=== PATIENT | male | born 1935 | race Caucasian/White ===

== ENCOUNTER 2016-10-23 16:11 | Emergency (ER) | payer OTHER, MEDICARE ==
[2016-10-23 16:28] VITALS: TEMP 98.4; O2SAT 93
[2016-10-23 17:45] LABS: INR 2.02 (0.83-1.16)
[2016-10-23 18:06] VITALS: BP 137/58; PULSE 69; RESP 14
--- NOTE | 2016-10-23 18:25 | EDPHY ---
H & P Time Seen by Provider: 10/23/16 16:44 HPI/ROS: CHIEF COMPLAINT: Fall 2 days ago HISTORY OF PRESENT ILLNESS: 81-year-old male presents to the emergency department after mechanical fall at home 2 days ago. Patient states that he was sitting at home and the chair that he was sitting in broke and he fell back hitting his head. He denies loss of consciousness. He complains of mild headache as well as some neck pain. He denies chest pain or difficulty breathing. Denies abdominal pain. Denies injury to upper lower extremities. The patient does report chest pain around 130 this afternoon which he believes was related to gas. The patient has a long history of gas. He did take Maalox at the onset of the chest pain which completely resolved the chest pain. He is no longer feeling chest pain now. He denies difficulty breathing. Patient also states that he fell sleep in the son 3 days ago and sustained a sunburn to his left lower leg. He states that he was resting out in the sun in hopes of treating his psoriasis. REVIEW OF SYSTEMS: Constitutional: No fever, no chills. Eyes: No double or blurry vision. ENT: No sore throat. Respiratory: No cough, no shortness of breath. Cardiac: No chest pain. Gastrointestinal: No abdominal pain, vomiting or diarrhea. Genitourinary: No dysuria. Musculoskeletal: Neck pain as above. No back pain Skin: No rashes. Neurological: headache. Past Medical/Surgical History: DVT, hypertension, [id number] diabetic, AAA Social History: and lives alone in [place] Smoking Status: Former smoker Physical Exam: General Appearance: Alert, no distress. Mentating normally and answering questions appropriately. No visible signs of trauma to his head. Eyes: Pupils equal and round. Extraocular motions are all intact. ENT: Mouth: Mucous membranes moist. Respiratory: No wheezing, rhonchi, or rales, lungs are clear to auscultation. Cardiovascular: Regular rate and rhythm. Gastrointestinal: Abdomen is soft and nontender, no masses, no rebound or guarding, bowel sounds normal. Neurological: Alert and oriented x 3, cranial nerves II through XII grossly intact Skin: Warm and dry, no rashes. Musculoskeletal: Nontender to palpate along the cervical, thoracic or lumbar spine. Neck is supple. Extremities: Full range of motion and no peripheral edema. Healing excoriated wound to the left anterior aspect of the lower leg. There is no redness or warmth or signs of cellulitis. He has no pain with palpation. No palpable bony tenderness with palpation to the lower extremities bilaterally. Psychiatric: Patient is oriented X 3, there is no agitation. Constitutional: Initial Vital Signs Temperature (C) 36.9 C 10/23/16 16:23 Heart Rate 79 10/23/16 16:23 Respiratory Rate 18 10/23/16 16:23 Blood Pressure 177/72 H 10/23/16 16:23 O2 Sat (%) 93 10/23/16 16:23 O2 Delivery Mode Room Air Allergies/Adverse Reactions: Tetracyclines Allergy (Intermediate, Verified 10/23/16 16:29) Vomiting nitrofurantoin [From Macrobid] Allergy (Unknown, Verified 10/23/16 16:29) nitrofurantoin macrocrystalline [From Macrobid] Allergy (Unknown, Verified 10/23 16:29) Penicillins Allergy (Unknown, Verified 10/23/16 16:29) Sulfa (Sulfonamide Antibiotics) Allergy (Unknown, Verified 10/23/16 16:29) Home Medications: Medication Instructions Recorded Lisinopril [Zestril 20 mg (*)] 20 mg PO DAILY@17 16 Acetaminophen [Tylenol 325mg (*)] 650 mg PO Q4HRS PRN #0 tab 08/04/16 Calcium Carbonate [Tums 500MG (*)] 500 mg PO TID PRN #0 tab.chew 08/04/16 Warfarin Sodium [Coumadin 5MG (*)] 10 mg PO DAILY@1700 #0 tab 08/04/16 amLODIPine BESYLATE [Norvasc 5 mg 5 mg PO DAILY #30 tab 08/04/16 (*)] traMADol [Ultram 50 mg (*)] 50 mg PO TID PRN #15 tab 10/23/16 Medical Decision Making - Diagnostics Imaging: CT imaging of the head and cervical spine reveal nothing acute. This is reported to me by the radiologist. ED Course/Re-evaluation: 81-year-old male presents after mechanical fall 2 days ago. The patient is on Coumadin for history of DVTs for [address] imaging of the head and cervical spine reveal nothing acute. Patient has evidence of sunburn to the left lower extremity. There is no signs of cellulitis. He has no pain with palpation. He has no history of neuropathy. I do not think x-rays are indicated. The patient is also having some mild pain to the right anterior knee. There is no effusion. Full range of motion of the right knee. Normal gait. I do not think x-rays are indicated. This was discussed with the patient he verbalized understanding and agreed. The patient describes pain in his chest that lasted a few minutes several hours ago. The patient states that is now completely resolved. He feels that this is related to previous history of GERD. He does not want further workup for this. He does not have any chest pain now. He is comfortable being discharged home. The case was discussed with Dr. Christiano Brannon, secondary supervising physician, who did not directly evaluate the patient but agrees with treatment and plan. Differential Diagnosis: Head injury including but not limited to concussion, skull fracture, intraparenchymal contusion, subarachnoid, subdural and epidural hematoma. - Data Points Laboratory Results: 10/23/16 17:23 PT 23.0 SEC H SEC (12.0-15.0) INR 2.02 H (0.83-1.16) Departure - Departure Disposition: Home, Routine, Self-Care Clinical Impression: sunburn left leg Head injury Qualifiers: Encounter type: initial encounter Qualified Code(s): S09.90XA - Unspecified injury of head, initial encounter Cervical strain Qualifiers: Encounter type: initial encounter Qualified Code(s): S16.1XXA - Strain of muscle, fascia and tendon at neck level, initial encounter Condition: Good Instructions: Cervical Strain (ED), Sunburn (ED), Head Injury (ED), Second Degree Burn (ED) Additional Instructions: Continue Coumadin as prescribed. Your INR today was 2.02. Return to the emergency department if you developed vomiting, worsening headache , altered mental status, or if you feel worse in any way. Tramadol as needed for pain. Referrals: Felipa Zamora PA [Primary Care Provider] - As per Instructions Prescriptions: traMADol [Ultram 50 mg (*)] 50 mg PO TID PRN #15 tab PRN Reason: Pain, Moderate
== END 2016-10-23 19:09 | disposition home or self-care (01) ==
DX: S09.90XA Unspecified injury of head, initial encounter (principal); S16.1XXA Strain of muscle, fascia and tendon at neck level, initial encounter; I10 Essential (primary) hypertension; E11.9 Type 2 diabetes mellitus without complications; L55.9 Sunburn, unspecified; Z87.891 Personal history of nicotine dependence; Z79.01 Long term (current) use of anticoagulants; W01.198A Fall on same level from slipping, tripping and stumbling with subsequent striking against other object, initial encounter

== ENCOUNTER 2016-10-28 19:16 | Emergency (ER) | payer OTHER, MEDICARE ==
[2016-10-28 19:25] VITALS: TEMP 97.5
[2016-10-28 21:38] LABS: % IMMATURE GRANULYOCYTES 0.1 % (0.0-1.1); ABSOLUTE IMMATURE GRANULOCYTES 0.01 10^3/uL (0.00-0.10); ADD DIFF? NO; ADD MORPH? NO; ADD SCAN? NO; ATYPICAL LYMPHOCYTE FLAG 10 (0-99); FRAGMENT RBC FLAG 0 (0-99); HEMATOCRIT 46.2 % (40.0-51.0); LEFT SHIFT FLG 0 (0-99); LIPEMIA HEMOLYSIS FLAG 80 (0-99); MEAN CELL HEMOGLOBIN 28.7 pg (27.9-34.1); MEAN CELL HEMOGLOBIN CONCENTR. 32.5 g/dL (32.4-36.7); MEAN CELL VOLUME 88.5 fL (81.5-99.8); MEAN PLATELET VOLUME 10.5 fL (8.7-11.7); PLATELET CLUMPS FLAG 0 (0-99); PLATELET COUNT 131 10^3/uL (150-400); RED BLOOD CELL COUNT 5.22 10^6/uL (4.40-6.38); RED CELL DISTRIBUTION WIDTH 16.3 % (11.5-15.2)
--- NOTE | 2016-10-28 21:44 | EDPHY ---
General - History Smoking Status: Former smoker Narrative: CHIEF COMPLAINT: Fall, head injury, headache HISTORY OF PRESENT ILLNESS: patient says that he fell out of a chair last night. He was trying to shift from 1 position to another when he slipped, falling backwards over the chair. He slipped on a hardwood floor and struck a door with his head. No LOC. Does have a headache but only area where he struck his head. He has had some difficulty with thought process today which concerned him. Nausea but no vomiting. No changes in vision. No neck pain that is midline, but does have some right-sided soft tissue pain. Symptoms are very mild concerning as he fell 2 days ago as well. He was seen here within normal CT scan discharge home. No chest or back injury. No injury to the arms or legs. No abdominal pain. No other associated complaints or modifying factors. REVIEW OF SYSTEMS: Ten systems reviewed and are negative unless otherwise noted in the HPI PERTINENT MEDICAL HISTORY: EXAMINATION General Appearance: Alert, no distress Head: normocephalic, atraumatic . No hematoma. No To sign. No raccoon eyes. No outward signs of trauma. Eyes: Pupils equal and round, no conjunctival pallor or injection ENT, Mouth: Mucous membranes moist . Uvula midline. No erythema or edema. Neck: Normal inspection, supple . No midline tenderness. No crepitus, step- off or deformity. There is mild right-sided trapezius tenderness. Range of motion is painless in all planes. Respiratory: Lungs are clear to auscultation . No wheezing, rhonchi or crackles. Cardiovascular: Regular rate and rhythm . No murmur. Pulses intact distally symmetrically Gastrointestinal: Abdomen is soft and nontender Back: non-tender, no bony abnormalities Neurological: A&O, nonfocal, normal gait. Strength is symmetric in all limbs. Normal mental status. No pronator drift. No dysmetria. Cranial nerves 2-12 grossly intact. Skin: Warm and dry, no rash . No lacerations, abrasions or contusions. Extremities: Nontender, no pedal edema Psychiatric: Mood and affect normal DIFFERENTIAL DIAGNOSES: Including but not limited to Closed head injury, intracranial hemorrhage, subdural hematoma, epidural hematoma, cranial fracture , right-sided cervical myofascial strain MDM: 8:45 p.m. mechanical fall last night it resulted in a closed head injury. The patient is on Coumadin and this is the 2nd fall in the last 2 days. I have ordered CT scan of the head due to anticoagulation with trauma and headache. He is nonfocal in no acute distress. Vital signs are stable. Also we will check his INR and hemoglobin. 10:15 p.m. notified by Radiology that the CT scan is unremarkable. No intracranial abnormality on CT scan. I have re-evaluated the patient. He is awake and alert. He is conversing appropriately. He is ambulating without any difficulty or assistance. He would like to be discharged home. I do feel he is able to do so as he is fully neuro intact. Contact primary care physician in the morning. Return to ER for any worsening symptoms, confusion, dizziness, vomiting. SUPERVISION: This patient was independently evaluated without the aide of supervising physician. (Andrew Thomas) Discussion: The patient wasevaluatedand managed by themidlevel provider. My co- signature indicates that Ihave reviewed this chart and I agree with the findings and plan of care asdocumented. I am the secondary supervising physician. (Zarina Diana) - Objective Vital Signs: Initial Vital Signs Temperature (C) 36.4 C 10/28/16 19:20 Heart Rate 75 10/28/16 19:20 Respiratory Rate 18 10/28/16 19:20 Blood Pressure 180/112 H 10/28/16 19:20 O2 Sat (%) 95 10/28/16 19:20 O2 Delivery Mode Room Air Allergies/Adverse Reactions: Tetracyclines Allergy (Intermediate, Verified 10/23/16 16:29) Vomiting nitrofurantoin [From Macrobid] Allergy (Unknown, Verified 10/23/16 16:29) nitrofurantoin macrocrystalline [From Macrobid] Allergy (Unknown, Verified 10/23 16:29) Penicillins Allergy (Unknown, Verified 10/23/16 16:29) Sulfa (Sulfonamide Antibiotics) Allergy (Unknown, Verified 10/23/16 16:29) Home Medications: Medication Instructions Recorded Lisinopril [Zestril 20 mg (*)] 20 mg PO DAILY@17 08/01/16 Acetaminophen [Tylenol 325mg (*)] 650 mg PO Q4HRS PRN #0 tab 16 Calcium Carbonate [Tums 500MG (*)] 500 mg PO TID PRN #0 tab.chew 08/04/16 Warfarin Sodium [Coumadin 5MG (*)] 10 mg PO DAILY@1700 #0 tab 08/04/16 amLODIPine BESYLATE [Norvasc 5 mg 5 mg PO DAILY #30 tab 08/04/16 (*)] traMADol [Ultram 50 mg (*)] 50 mg PO TID PRN #15 tab 10/23/16 Laboratory Results: Laboratory Results 10/28/16 21:30 Departure - Departure Disposition: Home, Routine, Self-Care Clinical Impression: Closed head injury, Warfarin-induced coagulopathy Condition: Good Instructions: Head Injury (ED) Additional Instructions: Contact your primary care physician in the morning. Return here for worsening headache, dizziness, syncope, or vomiting. Referrals: Felipa Zamora PA [Primary Care Provider] - As per Instructions
[2016-10-28 21:48] LABS: INR 1.73 (0.83-1.16); PROTIME(PATIENT) 20.3 SEC (12.0-15.0)
[2016-10-28 21:49] LABS: APTT 34.9 SEC (23.0-38.0)
[2016-10-28 22:40] VITALS: BP 172/104; PULSE 78; RESP 16; O2SAT 94
== END 2016-10-28 22:38 | disposition home or self-care (01) ==
DX: S09.90XA Unspecified injury of head, initial encounter (principal); D68.8 Other specified coagulation defects; T45.515A Adverse effect of anticoagulants, initial encounter; Z87.891 Personal history of nicotine dependence; Z79.01 Long term (current) use of anticoagulants; W01.198A Fall on same level from slipping, tripping and stumbling with subsequent striking against other object, initial encounter

== ENCOUNTER 2016-11-01 11:20 | Emergency (ER) | payer MEDICARE, OTHER ==
[2016-11-01 11:40] VITALS: TEMP 98.2
--- NOTE | 2016-11-01 11:45 | EDPHY ---
H & P Stated Complaint: DUZZUNESS RESOLVED Time Seen by Provider: 11/01/16 11:44 HPI/ROS: CHIEF COMPLAINT: Dizziness, Nausea HISTORY OF PRESENT ILLNESS: The patient is a 81 year old male, brought in by EMS , who presents to the emergency department with dizziness that he woke up with at 10:30 a.m.. The patient got up to use the bathroom and felt very unsteady and nauseated. He states he had a "a lack or coordination". The patient has had vertigo in the past and states his symptoms feel similar. His symptoms worsened when he lifted his head from the bed. He applied an oil to his inner ears to help improve his symptoms. The patient was able to walk to the ambulance without difficulty. The patient had 2 recent falls where he hit his head on the hardwoods. He was seen here 10/23 and 10/28 and had normal head CTs both times. The patient is on Coumadin for DVTs. He denies numbness or weakness unilaterally. Patient is currently feeling nauseous, but dizziness has improved. No fever, chills, chest pain, shortness of breath, palpitations, vomiting, diarrhea, or urinary complaints. REVIEW OF SYSTEMS: Aside from elements discussed in the HPI, a comprehensive 10-point review of systems was reviewed and is negative. PAST MEDICAL HISTORY: HTN, NIDDM, DVT, abdominal aortic aneurism, peripheral vascular disease, spinal stenosis. SOCIAL HISTORY: Lives [place]. VITAL SIGNS: Reviewed by me GENERAL: Well-developed, well-nourished, resting comfortably in no respiratory distress. HEENT: Head: Atraumatic. Eyes: No icterus, no injection. Ears: Oil droplets in inner ear. Mouth: moist mucous membranes. No erythema or lesions. Neck: supple with no adenopathy. Neck: Nontender to palpation, no trauma. LUNGS: Clear to auscultation bilaterally, no wheezes, rhonchi or rales. CARDIAC: Regular rate and rhythm, no rubs, murmurs or gallops. ABDOMEN: Soft, nontender, nondistended, bowel sounds normal. BACK: No CVA tenderness. EXTREMITIES: : No trauma noted, normal range of motion. PULSES: 2+ and equal throughout. NEURO: Alert and oriented, cranial nerves II through XII are intact. Motor strength 5 over 5 in all major muscle groups. Sensation intact to light touch. Normal finger to nose. SKIN: Warm and dry, no rash. PSYCHIATRIC: Normal mentation, no agitation. Portions of this note were transcribed by a biomedical technician. I personally performed a history, physical exam, medical decision making, and confirmed accuracy of information the transcribed note. - Personal History Current Tetanus/Diphtheria Vaccine: Yes Tetanus Vaccine Date: last 10 years - Medical/Surgical History Hx Asthma: No Hx Chronic Respiratory Disease: No Hx Diabetes: Yes Hx Cardiac Disease: Yes Hx Renal Disease: No Hx Cirrhosis: No Hx Alcoholism: No Hx HIV/AIDS: No Hx Splenectomy or Spleen Trauma: No Other PMH: HTN, NIDDM, DVT, abdominal aortic anersym-no surg, peripheral vascular disease, spinal stenosis. foot drop. - Social History Smoking Status: Former smoker Constitutional: Initial Vital Signs Temperature (C) 36.8 C 11/01/16 11:22 Heart Rate 74 11/01/16 11:22 Respiratory Rate 18 11/01/16 11:22 Blood Pressure 192/83 H 11/01/16 11:22 O2 Sat (%) 92 11/01/16 11:22 O2 Delivery Mode Room Air Allergies/Adverse Reactions: Tetracyclines Allergy (Intermediate, Verified 10/23/16 16:29) Vomiting nitrofurantoin [From Macrobid] Allergy (Unknown, Verified 10/23/16 16:29) nitrofurantoin macrocrystalline [From Macrobid] Allergy (Unknown, Verified 10/23 16:29) Penicillins Allergy (Unknown, Verified 10/23/16 16:29) Sulfa (Sulfonamide Antibiotics) Allergy (Unknown, Verified 10/23/16 16:29) Home Medications: Medication Instructions Recorded Lisinopril [Zestril 20 mg (*)] 20 mg PO DAILY@17 16 Acetaminophen [Tylenol 325mg (*)] 650 mg PO Q4HRS PRN #0 tab 08/04/16 Calcium Carbonate [Tums 500MG (*)] 500 mg PO TID PRN #0 tab.chew 08/04/16 Warfarin Sodium [Coumadin 5MG (*)] 10 mg PO DAILY@1700 #0 tab 08/04/16 amLODIPine BESYLATE [Norvasc 5 mg 5 mg PO DAILY #30 tab 08/04/16 (*)] traMADol [Ultram 50 mg (*)] 50 mg PO TID PRN #15 tab 10/23/16 Medical Decision Making - Diagnostics EKG Interpretation: The 12 lead EKG was interpreted by myself. See hard copy and/or "tracemaster" electronic copy for interpretation: Sinus rhythm. Imaging: Results: CT scan of the head was obtained. I viewed the images independently on the PACS system. I discussed the results of the study with the radiologist. Impression: No hemorrhage. Please see the full radiology report. Results: CT angiogram of the head and neck was obtained. I viewed the images independently on the PACS system. I discussed the results of the study with the radiologist. Impression: Normal. Please see the full radiology report. X-ray: Chest was obtained. I viewed the images myself on the PACS system. The radiologist interpretation is: minimal cardiomegaly and left basilar scarring versus atelectasis are unchanged. I discussed the x-ray findings with the patient. ED Course/Re-evaluation: 81-year-old male presenting with reports of "vertigo" which started this morning. Patient was seen in the emergency department 4 days ago following a relatively minor head trauma. He is on Coumadin however. Patient will undergo repeat CT scan of his head. CT scans demonstrate no acute findings. No hemorrhage. No dissection. Patient received meclizine 25 mg. Labs including a troponin are likewise reassuring. Patient was ambulated in the emergency department at 230. He did well. He will be discharged home. 2:40 p.m.: I discussed findings with the patient. I will have case management see the patient to arrange followup appointments. Differential Diagnosis: Differential diagnosis of the patient's dizziness was considered including but not limited to peripheral and central causes of vertigo, cardiac arrhythmias, cardiac ischemia, electrolyte disturbances, neurologic causes, orthostatic causes including dehydration, and blood loss. - Data Points Laboratory Results: Laboratory Results 11/01/16 12:45 11/01/16 12:45 11/01/16 11/01/16 11/01/16 12:45 12:45 11:59 WBC 6.31 10^3/uL 10^3/uL (3.80-9.50) RBC 5.37 10^6/uL 10^6/uL (4.40-6.38) Hgb 15.1 g/dL g/dL (13.7-17.5) Hct 48.3 % % (40.0-51.0) MCV 89.9 fL fL (81.5-99.8) MCH 28.1 pg pg (27.9-34.1) MCHC 31.3 g/dL L g/dL (32.4-36.7) RDW 16.1 % H % (11.5-15.2) Plt Count 127 10^3/uL L 10^3/uL (150-400) MPV 10.8 fL fL (8.7-11.7) Neut % (Auto) 77.8 % H % (39.3-74.2) Lymph % (Auto) 13.0 % L % (15.0-45.0) [place] % (Auto) 7.1 % % (4.5-13.0) Eos % (Auto) 1.3 % % (0.6-7.6) Baso % (Auto) 0.5 % % (0.3-1.7) Nucleat RBC Rel Count 0.0 % % (0.0-0.2) Absolute Neuts (auto) 4.91 10^3/uL 10^3/uL (1.70-6.50) Absolute Lymphs (auto) 0.82 10^3/uL L 10^3/uL (1.00-3.00) Absolute Monos (auto) 0.45 10^3/uL 10^3/uL (0.30-0.80) Absolute Eos (auto) 0.08 10^3/uL 10^3/uL (0.03-0.40) Absolute Basos (auto) 0.03 10^3/uL 10^3/uL (0.02-0.10) Absolute Nucleated RBC 0.00 10^3/uL 10^3/uL (0-0.01) Immature Gran % 0.3 % % (0.0-1.1) Immature Gran # 0.02 10^3/uL 10^3/uL (0.00-0.10) PT 21.3 SEC H SEC (12.0-15.0) INR 1.84 H (0.83-1.16) APTT 35.9 SEC SEC (23.0-38.0) Sodium 141 mEq/L mEq/L (134-144) Potassium 5.0 mEq/L mEq/L (3.5-5.2) Chloride 104 mEq/L mEq/L (97-110) Carbon Dioxide 25 mEq/l mEq/l (22-31) Anion Gap 12 mEq/L mEq/L (8-16) BUN 29 mg/dL H mg/dL (7-23) Creatinine 1.2 mg/dL mg/dL (0.7-1.3) Estimated GFR 58 Glucose 100 mg/dL mg/dL (70-100) Calcium 9.3 mg/dL mg/dL (8.5-10.4) Troponin I < 0.012 ng/mL ng/mL (0-0.034) Medications Given: Discontinued Medications Meclizine HCl (Meclizine Hcl) 25 mg PO EDNOW ONE Stop: 11/01/16 13:50 Last Admin: 11/01/16 13:59 Dose: 25 mg Departure - Departure Disposition: Home, Routine, Self-Care Clinical Impression: Vertigo, Dizziness Condition: Good Instructions: Vertigo (ED), Dizziness (ED) Additional Instructions: #1. Take Meclizine as directed if nausea and dizziness reoccur. Meclizine 12.5-25mg by mouth 2-3 times a day as needed. #2. Followup with your primary care physician next week. 3. Please follow up with Neurosurgery to obtain a brace for your foot. Referrals: Felipa Zamora PA [Physician Relay Tester Helper] - As per Instructions Report Scribed for: Zarina Diana Report Scribed by: Izabel Harper Date of Report: 11/01/16 Time of Report: 12:08
--- NOTE | 2016-11-01 12:15 | CPEKG ---
Heart Rate: 64 RR Interval: 938 P-R Interval: 156 QRSD Interval: 102 QT Interval: 428 QTC Interval: 442 P [place]: 91 QRS [place]: 32 T Wave [place]: 14 EKG Severity - NORMAL ECG - EKG Impression: SINUS RHYTHM Electronically Signed By: Mariana Sosa 01-Nov-2016 15:34:55
[2016-11-01 12:53] LABS: % IMMATURE GRANULYOCYTES 0.3 % (0.0-1.1); ABSOLUTE IMMATURE GRANULOCYTES 0.02 10^3/uL (0.00-0.10); ADD DIFF? NO; ADD MORPH? NO; ADD SCAN? NO; ATYPICAL LYMPHOCYTE FLAG 0 (0-99); FRAGMENT RBC FLAG 0 (0-99); HEMATOCRIT 48.3 % (40.0-51.0); HEMOGLOBIN 15.1 g/dL (13.7-17.5); LEFT SHIFT FLG 0 (0-99); LIPEMIA HEMOLYSIS FLAG 80 (0-99); MEAN CELL HEMOGLOBIN 28.1 pg (27.9-34.1); MEAN CELL HEMOGLOBIN CONCENTR. 31.3 g/dL (32.4-36.7); MEAN CELL VOLUME 89.9 fL (81.5-99.8); MEAN PLATELET VOLUME 10.8 fL (8.7-11.7); PLATELET CLUMPS FLAG 0 (0-99); PLATELET COUNT 127 10^3/uL (150-400); RED BLOOD CELL COUNT 5.37 10^6/uL (4.40-6.38); RED CELL DISTRIBUTION WIDTH 16.1 % (11.5-15.2)
[2016-11-01 13:00] LABS: ANION GAP 12 mEq/L (8-16); CALCIUM 9.3 mg/dL (8.5-10.4); CARBON DIOXIDE 25 mEq/l (22-31); CHLORIDE 104 mEq/L (97-110); CREATININE 1.2 mg/dL (0.7-1.3); GLOMERULAR FILTRATION RATE 58; GLUCOSE 100 mg/dL (70-100); SODIUM 141 mEq/L (134-144)
[2016-11-01 13:06] LABS: INR 1.84 (0.83-1.16); PROTIME(PATIENT) 21.3 SEC (12.0-15.0)
[2016-11-01 13:07] LABS: APTT 35.9 SEC (23.0-38.0)
[2016-11-01] MEDS ORDERED: IOPAMIDOL (ISOVUE 370) 100 ML BTL IV ONE (13:07)
[2016-11-01 13:13] LABS: TROPONIN I < 0.012 ng/mL (0-0.034)
[2016-11-01 13:40] VITALS: BP 150/84; PULSE 68; RESP 16; O2SAT 98
[2016-11-01] MEDS ORDERED: MECLIZINE HCL 25 MG TAB PO ONE (13:49)
[2016-11-01] MEDS ORDERED: MECLIZINE HCL 25 MG TAB ONE (13:56)
== END 2016-11-01 15:15 | disposition home or self-care (01) ==
LOC: EDUNIT#
DX: R42 Dizziness and giddiness (principal); I10 Essential (primary) hypertension; E11.9 Type 2 diabetes mellitus without complications; Z87.891 Personal history of nicotine dependence; Z79.01 Long term (current) use of anticoagulants
CPT/HCPCS: 70450; 70496; 70498; 71020; 93005; 99285; Q9967

== ENCOUNTER 2016-12-12 18:35 | Inpatient (IN) | payer OTHER ==
--- NOTE | 2016-12-12 18:51 | EDPHY ---
H & P Time Seen by Provider: 12/12/16 18:48 HPI/ROS: Chief complaint. Altered mental status HPI. 81-year-old male found this afternoon lying on the floor confused in his apartment. Patient's neighbor was delivering groceries and she knocked and did not hear him answer though thought that the patient was at home. She had achy and opened the apartment door and found the patient on the floor. She noted as face was quite red. He was speaking in confused speech. The patient now is speaking though still has poor memory. He complains of chest discomfort but no trouble breathing. No abdominal pain no headache. He is on blood thinners but does not think he has recently his head. Does not think he has had recent fever or upper respiratory symptoms. No urinary symptoms. ROS Constitutional. Generalized weakness Eyes. no problems with vision ENT. no sore throat, no nasal drainage Cardiovascular. Chest pain Respiratory. no shortness of breath, no cough Abdominal. no abdominal pain, no nausea/vomiting, no diarrhea . no problems urinating MS. no calf pain/swelling, no neck/back pain, no joint pain Skin. no rash Lymph. no swollen glands Neuro. Confused Past Medical/Surgical History: Hypertension, non insulin-dependent diabetes, DVT, abdominal aortic aneurysm without surgery, peripheral vascular disease, spinal stenosis with foot drop Social History: Lives by self, nonsmoker, no alcohol Smoking Status: Former smoker Physical Exam: General Appearance: Alert well-developed male mild distress vital signs significant for temp 37.4degrees and O2 saturation 91% on room air Eyes: Pupils equal and round no pallor or injection. ENT, Mouth: Mucous membranes are moist. Respiratory: There are no retractions, lungs are clear to auscultation. Cardiovascular: Regular rate and rhythm. Gastrointestinal: Abdomen is soft and nontender, no masses, bowel sounds normal. Neurological: Awake and alert, sensory and motor exams grossly normal. Speech is confused. Cranial nerves appear intact. Patient moves all 4 extremities. Skin: Warm and dry, no rashes. Musculoskeletal: Neck is supple nontender. Extremities symmetrical, full range of motion. Psychiatric: Patient is oriented X 2, there is no agitation. He does not know day of the week month, or year Constitutional: Initial Vital Signs Temperature (C) 37.4 C 12/12/16 18:40 Heart Rate 81 12/12/16 18:40 Respiratory Rate 18 04/27/17 18:40 Blood Pressure 123/55 H 12/12/16 18:40 O2 Sat (%) 91 L 12/12/16 18:40 O2 Delivery Mode Nasal Cannula O2 (L/minute) 2 Allergies/Adverse Reactions: Tetracyclines Allergy (Intermediate, Verified 10/23/16 16:29) Vomiting nitrofurantoin [From Macrobid] Allergy (Unknown, Verified 10/23/16 16:29) nitrofurantoin macrocrystalline [From Macrobid] Allergy (Unknown, Verified 10/23 16:29) Penicillins Allergy (Unknown, Verified 10/23/16 16:29) Sulfa (Sulfonamide Antibiotics) Allergy (Unknown, Verified 10/23/16 16:29) Home Medications: Medication Instructions Recorded Lisinopril [Zestril 20 mg (*)] 20 mg PO DAILY 08/01/16 amLODIPine BESYLATE [Norvasc 5 mg 5 mg PO DAILY #30 tab 08/04/16 (*)] Warfarin Sodium [Coumadin 5MG (*)] 7.5 mg PO SUMOWEFRSA 12/12/16 Warfarin Sodium [Coumadin 5MG (*)] 10 mg PO TUTH 12/12/16 Medical Decision Making - Diagnostics EKG Interpretation: EKG was interpreted by me for full report please see the report trace master Imaging Results: Head CT reviewed by me and discussed with Dr. Calix shows no acute abnormality Chest x-ray shows no acute abnormality CT angiogram shows pulmonary embolus Procedures: IV normal saline, monitor. Septic workup ED Course/Re-evaluation: Re-evaluation 8:10 p.m.--patient is stable Lovenox subcutaneously Fluid bolus and IV Rocephin. Patient and I discussed imaging and lab results. We discussed treatment plan including criteria for return importance of follow-up further evaluation. They expressed understanding and agreement Patient also has and the elevated troponin Differential Diagnosis: I considered sepsis as an etiology including pneumonia and urinary tract infection. Patient has an elevated troponin. He has an elevated D-dimer. Findings on CT angiogram show pulmonary embolus. - Data Points Laboratory Results: Laboratory Results 12/12/16 18:30 12/12/16 18:30 Microbiology Results: MICROBIOLOGY 12/12/16 19:41 Blood Blood Culture - Preliminary Beta Hemoylytic Streptococcus 12/12/16 20:21 Blood Blood Culture - Preliminary Beta Hemoylytic Streptococcus 12/12/16 20:21 Blood Blood Panel (PCR) - Final Strep Agalactiae Group B Medications Given: Discontinued Medications Enoxaparin Sodium (Lovenox) 100 mg SC BID ERIK Stop: 06/10/17 22:29 Last Admin: 12/12/16 23:58 Dose: Not Given Sodium Chloride (Ns) 1,000 mls @ 0 mls/hr IV ONCE ONE PRN Reason: Wide Open Stop: 12/12/16 19:01 Last Admin: 12/12/16 19:24 Dose: 1,000 mls Ceftriaxone Sodium/Dextrose (Rocephin 1 Gm (Premix)) 50 mls @ 100 mls/hr IV DAILY ERIK PRN Reason: Protocol Stop: 01/11/17 23:44 Last Admin: 12/13/16 00:14 Dose: 50 mls Vancomycin/Sodium Chloride (Vancomycin 1 Gm (Premix)) 250 mls @ 250 mls/hr IV ONCE ONE PRN Reason: Protocol Stop: 12/13/16 00:47 Last Admin: 12/13/16 00:34 Dose: 250 mls Sodium Chloride (Ns) 1,000 mls @ 150 mls/hr IV CONT ERIK Stop: 12/13/16 06:24 Last Admin: 12/13/16 00:13 Dose: 1,000 mls Lisinopril (Zestril) 20 mg PO DAILY ERIK Stop: 06/11/17 08:59 Last Admin: 12/14/16 12:24 Dose: Not Given Lorazepam (Ativan Injection) 1 mg IVP ONCE ONE Stop: 12/13/16 12:50 Last Admin: 12/13/16 15:16 Dose: Not Given Lorazepam (Ativan Injection) 1 mg IVP ONCE ONE Stop: 12/13/16 15:31 Last Admin: 12/13/16 16:07 Dose: 1 mg Departure - Departure Disposition: [facility] Acute Clinical Impression: Elevated troponin Pulmonary embolus Qualifiers: Pulmonary embolism type: other Chronicity: acute Acute cor pulmonale presence: without acute cor pulmonale Qualified Code(s): I26.99 - Other pulmonary embolism without acute cor pulmonale Condition: Serious
[2016-12-12] MEDS ORDERED: NS 1,000 ML IV ONE (19:00)
[2016-12-12 19:10] LABS: % IMMATURE GRANULYOCYTES 0.9 % (0.0-1.1); ABSOLUTE IMMATURE GRANULOCYTES 0.12 10^3/uL (0.00-0.10); ADD DIFF? NO; ADD MORPH? NO; ADD SCAN? NO; ATYPICAL LYMPHOCYTE FLAG 0 (0-99); FRAGMENT RBC FLAG 0 (0-99); HEMATOCRIT 41.7 % (40.0-51.0); HEMOGLOBIN 13.5 g/dL (13.7-17.5); LEFT SHIFT FLG 30 (0-99); LIPEMIA HEMOLYSIS FLAG 80 (0-99); MEAN CELL HEMOGLOBIN 28.4 pg (27.9-34.1); MEAN CELL HEMOGLOBIN CONCENTR. 32.4 g/dL (32.4-36.7); MEAN CELL VOLUME 87.8 fL (81.5-99.8); PLATELET CLUMPS FLAG 10 (0-99); PLATELET COUNT 110 10^3/uL (150-400); RED BLOOD CELL COUNT 4.75 10^6/uL (4.40-6.38); RED CELL DISTRIBUTION WIDTH 15.9 % (11.5-15.2)
[2016-12-12 19:22] LABS: ANION GAP 9 mEq/L (8-16); BILIRUBIN,TOTAL 1.6 mg/dL (0.1-1.4); CALCIUM 9.1 mg/dL (8.5-10.4); CARBON DIOXIDE 25 mEq/l (22-31); CHLORIDE 106 mEq/L (97-110); CREATININE 1.2 mg/dL (0.7-1.3); GLOMERULAR FILTRATION RATE 58; GLUCOSE 84 mg/dL (70-100); POTASSIUM 4.2 mEq/L (3.5-5.2); SODIUM 140 mEq/L (134-144)
[2016-12-12 19:33] LABS: TROPONIN I 0.089 ng/mL (0-0.034)
--- NOTE | 2016-12-12 19:54 | CPEKG ---
Heart Rate: 89 RR Interval: 674 QRSD Interval: 96 QT Interval: 396 QTC Interval: 482 QRS [place]: 45 T Wave [place]: 21 EKG Severity - ABNORMAL ECG - EKG Impression: ATRIAL FIBRILLATION, V-RATE 68-124 EKG Impression: MULTIFORM VENTRICULAR PREMATURE COMPLEXES EKG Impression: BORDERLINE PROLONGED QT INTERVAL Electronically Signed By: Mendez Greene 13-Dec-2016 00:14:49
[2016-12-12 20:10] LABS: INR 2.19 (0.83-1.16); PROTIME(PATIENT) 24.5 SEC (12.0-15.0)
[2016-12-12 20:11] LABS: APTT 32.4 SEC (23.0-38.0)
[2016-12-12 20:42] LABS: COLOR YELLOW; LEUKOCYTE ESTERASE,URINE NEGATIVE (NEGATIVE); NITRITE,URINE NEGATIVE (NEGATIVE)
[2016-12-12 20:53] LABS: MUCUS 2+ /lpf (NONE-1+)
[2016-12-12] MEDS ORDERED: IOPAMIDOL (ISOVUE-300) 100 ML BTL IV ONE (21:02)
[2016-12-12] MEDS ORDERED: ENOXAPARIN 100 MG/ML SYR SC SCH (22:30)
[2016-12-12] MEDS ORDERED: NS 1,000 ML IV SCH (23:45)
[2016-12-12] MEDS ORDERED: VANCOMYCIN HCL/NORMAL SALINE 250 ML IV ONE (23:48)
[2016-12-12] MEDS ORDERED: ONDANSETRON 4 MG/2 ML VIAL IVP PRN (23:51)
[2016-12-12] MEDS ORDERED: ONDANSETRON DISINTEGRATING 4 MG TAB PO PRN (23:51)
[2016-12-13] MEDS: ACETAMINOPHEN 500 MG TAB PO PRN ×2 (00:17→21:37)
--- NOTE | 2016-12-13 02:39 | GHP ---
[f rep st] HISTORY AND PHYSICAL DATE OF ADMISSION: 12/12/2016 HISTORY OF PRESENTING ILLNESS: The patient is a pleasant 81-year-old male with a history of atrial fibrillation and hypertension, as well as a few ER visits for mechanical falls over the previous . During that time, he has not been admitted but he has had several reasonable ER workup that incl uded neck CTA, showed mild atherosclerotic disease in the carotid bulb without flow-limiting stenosi s. He has also had a C-spine CT that was unremarkable. Today, he presents to the emergency departm ent when a friend found him on the ground. He was dropping off some groceries and the patient was f ound down on the ground. He does not recall much of what happened. When I speak with the patient, it is a few hours later; he denies nausea, vomiting, diarrhea, or hea dache. He says he might have a stiff neck, but he is able to touch his chin to his chest. He denie s cough or shortness of breath. He is complaining of some pain in his right shoulder, but he does n ot have pain with passive movement of the right shoulder. He did get a flu shot this year. He is n ot constipated. He has no urgency, frequency, dysuria. He does have a known footdrop secondary to peripheral neuropathy on the right. On arrival to the floor, the patient became febrile to 102, he was 37.8 in the emergency department. He does not have abdominal pain, he does not have a productive cough. He does not have any teeth. He does not have pain in his mouth. He does have some painful areas on his skin. He is not having chest pain or shortness of breath. REVIEW OF SYSTEMS: Complete 10-point review of systems conducted and negative except as noted in th e HPI. PAST MEDICAL HISTORY: 1. Footdrop on the right. 2. Atrial fibrillation. 3. Hypertension. 4. Admission to this hospital in July for falls and head laceration. 5. He also has a history of acute hypoxemia. 6. History of DVT. 7. History of aortic aneurysm. 8. Peripheral vascular disease. 9. Type 2 diabetes. ALLERGIES: Tetracycline, nitrofurantoin, penicillin, and sulfa. MEDICATIONS: Warfarin, lisinopril and amlodipine. SOCIAL HISTORY: Lives alone. Alcohol and tobacco are uncertain. Reviewing prior notes regarding s ocial history, no alcohol, no tobacco. Lives alone in low income housing. No family in the area. FAMILY HISTORY: Parents . Notable for mother with stroke. PHYSICAL EXAM: CURRENT VITAL SIGNS: Temp 39.1, blood pressure 124/64, pulse 74, breathing 18 times a minute, 92% on 2 L. GENERAL: Uncomfortable, red in the face. HEENT: Oropharynx is clear. Muc ous membranes are dry. NECK: Supple without lymphadenopathy. LUNGS: Clear to auscultation bilate rally. HEART: S1, S2. ABDOMEN: Soft, nontender, nondistended. LOWER EXTREMITIES: Show chronic venous stasis changes. His right forefoot is cool, his left is not. The pulses are not palpable bi laterally. His extremity exam is also notable for the right shoulder, which he is referencing pain; however, he does not have pain with passive movement. NEUROLOGIC: Otherwise notable for mild ence phalopathy. LABS: White count 13.08, hematocrit 41.7, platelets are 110,000. INR is 2.2. D-dimer is 7. Venou s lactate is 1.8. Sodium is 140, potassium is 4.2, chloride is 106, bicarb 25, BUN 22, creatinine 1 .2, glucose 84, bilirubin is 1.6. Troponin is 0.89, which is a high value for him. BNP is 1670, wi th a prior value of 631. UA shows 3-5 red cells, 1-3 white cells, 2+ mucus. Influenza negative in July, but there is no value yet from today. Blood cultures are pending. EKG, interpreted by me, shows atrial fibrillation at 89 with normal axis. Really, no ST or T-wave c hanges. It is similar to an EKG from about a month ago. Chest x-ray, interpreted by me, shows no a cute cardiopulmonary disease, possible bronchitis. Head CT without contrast shows no acute intracra nial abnormalities, and chronic small vessel ischemic disease. CTA of the chest shows probable rag sorter and cutter cali partial thrombus in the left upper anterior segment and possible partial thrombus in the right u pper lobe, minimal clot burden. A 6 mm pulmonary nodule in the right lower lobe. Mild atelectasis or early infiltrate in the lingula inferiorly and the left lung base. I discussed the case with Dr. Mendez Greene. ASSESSMENT/PLAN: This is a 81-year-old gentleman who presents with being found confused with fever, positive troponin, leukocytosis, without obvious source of fever. 1. Fever. His urinalysis is unremarkable. His chest x-ray shows the possibility of an early infil trate; however, the findings are pretty subtle on chest imaging. I have considered bacterial mening itis in this patient. I think my overall feeling is that he does not have it; however, given his fe chay without a clear source, I think a lumbar puncture could possibly be indicated. Currently, he medrano s a therapeutic INR so it is contraindicated by that. I have ordered some FFP. I will start him on vancomycin and ceftriaxone, give him a gram of Tylenol. Should his fever clear and the patient is more alert, I think it is probably reasonable to forego a lumbar puncture; however, should it not, i t may be prudent to do this if another source does not become apparent. I do not suspect an intraab dominal source, based on his benign abdominal exam. I do not see evidence of cellulitis or intraora l infection. I have considered septic arthritis of his right shoulder; however, he has no pain with passive movement which makes this much less likely. I have seen spinal epidural abscess look like this. He is not complaining of any back pain. Blood cultures have been drawn. In summary, I will start the patient on vancomycin, ceftriaxone, check influenza, draw blood cultures and await his men dallin status in the morning before considering lumbar puncture. 2. Positive troponin. Will cycle this. His EKG is without ischemic changes. He is not really com plaining of chest pain. The right shoulder pain is noted. I will give him an aspirin and I will fo llow troponin. This may be secondary to his fever. 3. Possible pulmonary emboli. The patient has a history of DVT, he is on Coumadin. These likely r epresent chronic events, if at all, and the treatment would be ongoing anticoagulation. These do no t account for his current presentation. 4. Hypertension. We will follow, we will continue his medicines. 5. Prophylaxis: The patient is therapeutically anticoagulated. 6. Leukocytosis. This is with a left shift secondary to fever. 7. Atrial fibrillation, he is anticoagulated. We will follow him on telemetry. 8. Disposition: Inpatient status. /[id number]/MODL
[2016-12-13 06:44] LABS: % IMMATURE GRANULYOCYTES 0.7 % (0.0-1.1); ABSOLUTE IMMATURE GRANULOCYTES 0.07 10^3/uL (0.00-0.10); ADD DIFF? NO; ADD MORPH? NO; ADD SCAN? NO; ATYPICAL LYMPHOCYTE FLAG 0 (0-99); FRAGMENT RBC FLAG 0 (0-99); HEMATOCRIT 37.2 % (40.0-51.0); HEMOGLOBIN 11.8 g/dL (13.7-17.5); LEFT SHIFT FLG 20 (0-99); LIPEMIA HEMOLYSIS FLAG 80 (0-99); MEAN CELL HEMOGLOBIN 28.1 pg (27.9-34.1); MEAN CELL HEMOGLOBIN CONCENTR. 31.7 g/dL (32.4-36.7); MEAN CELL VOLUME 88.6 fL (81.5-99.8); MEAN PLATELET VOLUME 11.2 fL (8.7-11.7); PLATELET CLUMPS FLAG 0 (0-99); PLATELET COUNT 97 10^3/uL (150-400); RED CELL DISTRIBUTION WIDTH 16.2 % (11.5-15.2)
[2016-12-13 06:50] LABS: INR 2.53 (0.83-1.16); PROTIME(PATIENT) 27.5 SEC (12.0-15.0)
[2016-12-13 07:47] LABS: ANION GAP 5 mEq/L (8-16); CARBON DIOXIDE 25 mEq/l (22-31); CHLORIDE 107 mEq/L (97-110); CREATININE 1.2 mg/dL (0.7-1.3); GLOMERULAR FILTRATION RATE 58; GLUCOSE 96 mg/dL (70-100); POTASSIUM 4.3 mEq/L (3.5-5.2); SODIUM 137 mEq/L (134-144)
[2016-12-13 07:59] LABS: TROPONIN I 0.091 ng/mL (0-0.034)
[2016-12-13] MEDS: cefTRIAXone 2 GM in D5W 50 ML IV SCH (09:17)
--- NOTE | 2016-12-13 11:54 | ECHO ---
[id number] + + [address] : : [place] [address] : : [phone] + + Adult Echocardiographic Report + + :Name: KIMBER BALL WStudy Date: 12/13/2016 08:14 AM BP: 118/62 mmHg : : Hospital Admission Number: [id number] : :: 1935 Gender: Male Height: 78 in : :Age: 81 yrs Race: [facility] Weight: 220 lb : :Reason For Study: eval LVFX : : BSA: 2.4 meters2: :History: + trop and syncope : + + MMode/2D Measurements \T\ Calculations IVSd: 1.3 cm RVDd: 3.7 cm FS: 29.9 % Ao root diam: LVPWd: 1.1 cm LVIDd: 4.0 cm EDV(Teich): 3.5 cm LVIDs: 2.8 cm 71.7 ml ESV(Teich): 30.4 ml EF(Teich): 57.6 % LVLd ap4: 8.9 cm SV(MOD-sp4): EDV(MOD-sp4): 102.0 ml 149.0 ml LVLs ap4: 7.5 cm ESV(MOD-sp4): 47.0 ml EF(MOD-sp4): 68.5 % Normal Measurement Values: + + :LVIDd (3.5-5.7cm) IVSd (0.6-1.1cm) LVPWd (0.6-1.1cm) Aortic Root (2.0-3.7cm)Left Atrium (1.5-4.0cm): :LV Vol(d) (76-115ml) LV Vol(s) (29-48ml) Ejec Fraction (50-65%)PV Olegario (0.6- 1.2m/s) TV Olegario (0.4-1.0m/s) : :MV E Olegario (0.8-1.0m/s)MV A Olegario (0.3-1.0m/s)LVOT Olegario (0.7-1.2m/s) Asc Ao Olegario ( 0.9-1.8m/s) : + + Doppler Measurements \T\ Calculations MV E max olegario: Ao V2 max: LV V1 max: PA V2 max: 92.8 cm/sec 164.0 cm/sec 117.0 cm/sec 79.5 cm/sec MV A max olegario: Ao max PG: LV V1 max PG: PA max P.9 cm/sec 10.8 mmHg 5.5 mmHg 2.5 mmHg MV E/A: 2.2 MV dec time: 0.30 sec TR max olegario: 287.8 cm/sec TR max P.1 mmHg RAP systole: 5.0 mmHg RVSP(TR): 38.1 mmHg Left Ventricle The left ventricle is normal in size and function. There is mild concentric left ventricular hypertrophy. Ejection Fraction = 65%. Grade II diastolic dysfunction. Regional wall motion abnormalities cannot be excluded due to limited visualization. Right Ventricle The right ventricle is normal in size and function. Atria The left atrium is mildly dilated. The Left Atrial Volume is 41 ml/m2. The right atrium is mildly dilated. Mitral Valve The mitral valve is normal in structure and function. There is no mitral valve stenosis. There is trace to mild mitral regurgitation. Tricuspid Valve The tricuspid valve is normal in structure and function. There is no tricuspid stenosis. There is trace to mild tricuspid regurgitation. Right ventricular systolic pressure is 38mmHg. There is Doppler evidence for mild pulmonary hypertension. Aortic Valve The aortic valve is not well visualized. There is no aortic stenosis. There is no aortic insufficiency. Pulmonic Valve The pulmonic valve is not well visualized. Great Vessels The aortic root is not well visualized. Pericardium/Pleural There is no pericardial effusion. Conclusion The study was technically difficult. The left ventricle is normal in size and function. There is mild concentric left ventricular hypertrophy. Ejection Fraction = 65%. Grade II diastolic dysfunction. Regional wall motion abnormalities cannot be excluded due to limited visualization. The Left Atrial Volume is 41 ml/m2. The left atrium is mildly dilated. The right atrium is mildly dilated. There is trace to mild mitral regurgitation. There is trace to mild tricuspid regurgitation. Right ventricular systolic pressure is 38mmHg. There is Doppler evidence for mild pulmonary hypertension. The aortic valve is not well visualized. The aortic root is not well visualized. Final Reading Physician: Lloyd Lloyd signed on 12/13/2016 11:53 AM Ordering Physician: Ray Stuart Performed By: Gracy So
[2016-12-13] MEDS ORDERED: LORazepam 2 MG/ML INJ IVP ONE ×2 (12:49→15:30)
[2016-12-13] MEDS: LISINOPRIL 20 MG TAB PO SCH (13:00)
[2016-12-13] MEDS: ASPIRIN 81 MG CHEWABLE TAB PO SCH (13:00)
[2016-12-13] MEDS: amLODIPine BESYLATE 5 MG TAB PO SCH (13:00)
--- NOTE | 2016-12-13 13:38 | HOSPPROG ---
Hospitalist Progress Note Assessment/Plan: * Severe Sepsis - strep -source unclear - with severe neck pain - MRI Cspine pending -ID consulted -IV ceftriaxone * Metabolic encephalopathy - improved * PE/DVT -chronic warfarin - on hold for possible procedure * Troponin elevation - suspect due to stress of sepsis -consider eventual stress testing * DM II * Afib * HTN - hold meds Subjective: Neck pain is all gone. No pain. Burning with urination x 1 day Objective: Vital Signs Temp Pulse Resp BP Pulse Ox 36.8 C 66 24 H 108/54 L 94 12/13/16 12:00 12/13/16 12:00 12/13/16 12:00 12/13/16 12:00 12/13/16 12:00 Laboratory Results 12/13/16 06:22 12/13/16 06:22 12/12/16 12/13/16 12/14/16 05:59 05:59 05:59 Intake Total 2523 Output Total 650 500 Balance 1873 -500 PT 27.5 SEC (12.0-15.0) H 12/13/16 06:22 INR 2.53 (0.83-1.16) H 12/13/16 06:22 CTA chest - Chronic PE ECHO - no vegetation case d/w Dr. Stuart - regarding events overnight - Physical Exam Constitutional: no apparent distress, appears nourished, not in pain Cardiovascular: regular rate and rhythym, no murmur, rub, or gallop Respiratory: no respiratory distress, no rales or rhonchi, clear to auscultation Gastrointestinal: normoactive bowel sounds, soft, non-tender abdomen, no palpable masses Skin: no rashes or abrasions, no fluctuance, no induration Neurologic: AAOx3, sensation intact bilaterally Psychiatric: interacting appropriately, not anxious, not encephalopathic, thought process linear ICD10 Worksheet Patient Problems: Problems Problem Status Onset Cervical strain Acute Dehydration Acute Head injury Acute Hypoxemia Acute Nausea, vomiting, and diarrhea Acute Pancreatitis Acute
[2016-12-13] MEDS ORDERED: GADOBUTROL 10 ML VIAL IVP ONE (15:29)
--- NOTE | 2016-12-13 15:36 | GCON ---
[f rep st] CONSULTATION INFECTIOUS DISEASE CONSULTATION DATE OF CONSULTATION: 12/13/2016 REFERRING PHYSICIAN: Ray Stuart MD REASON FOR CONSULTATION: Sepsis and group B strep bacteremia. HISTORY OF PRESENT ILLNESS: A 81-year-old male with a history of atrial fibrillation, [id number] diabetes, high blood pressure who was in his usual state of health until December 11 in which he had severe malaise after working in the yard that day. He reports that his neighbors felt he had a fever. He had a headache and neck stiffness at that time and Tylenol did not help his symptoms. His symptoms persisted and his neighbor finally convinced him to call an ambulance for evaluation and they took him to [facility]. Upon admission, he was found to have a temperature to 102 and primary complaints are headache and neck stiffness. Patient refused a lumbar puncture initially and within the evening his blood cultures were positive for group B strep. He is edentulous and has no oral pain. No shortness of breath, cough or chest pain. No nausea, vomiting or diarrhea. He denies any recent skin lacerations or injuries. He denies sore throat and no contact with children or recent travel. REVIEW OF SYSTEMS: A complete 10-point review of systems was performed and is negative except as mentioned in the HPI. PAST MEDICAL/SURGICAL HISTORY: 1. Spinal stenosis with footdrop on the right side. 2. Atrial fibrillation. 3. Hypertension. 4. Fall in July of 2016 for a head lac. 5. DVT. 6. Abdominal aortic aneurysm. 7. Peripheral vascular disease. 8. Type 2 diabetes. 9. Appendectomy. ALLERGIES: Penicillin, the patient has an unknown reaction, but he states it was a side effect; sulfa nausea, vomiting; tetracycline nausea, vomiting. Therefore, all "allergies" are not true allergies, they are intolerances. OUTPATIENT MEDICATIONS: Include Coumadin, lisinopril and Norvasc. He was given a dose of vancomycin x1 and started on ceftriaxone 2 g IV daily. SOCIAL HISTORY: Patient is retired. He lives in public housing. 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 He occasionally has alcohol, but it is rare. He previously smoked a pack a day, quit in the 1980s. FAMILY HISTORY: His mom had a CVA and and she was older, he cannot remember age. PHYSICAL EXAMINATION: VITAL SIGNS: Blood pressure 108/54, heart rate 66, respiratory rate 20, saturation 94% on 2 L, temperature currently 36.8, T-max 39.1. GENERAL: This is a pleasant elderly male sitting up in bed with fluent speech. No acute distress. HEENT: No conjunctival hemorrhages. Extraocular muscles were intact. Oropharynx was moist. No teeth. NECK: Supple. No lymphadenopathy. He had a very thick neck. CARDIOVASCULAR: Distant heart sounds. Regular rate. No murmur. Patient did not appear to be in AFib at the time of my exam. CHEST: Barrel chest. No increased respiratory rate. Clear to auscultation bilaterally. ABDOMEN: Obese, soft, nontender. Bowel sounds are present. : No testicular or penile lesions were noted. No inguinal lymphadenopathy. EXTREMITIES: Patient had chronic hyperpigmentation of the bilateral lower extremities consistent with venous insufficiency. He had thready dorsalis pedis pulses bilaterally. He had an ulcer on the tip of his left 2nd toe and that toe was slightly swollen and pinker than the other toes. He also had a hemorrhagic bulla on the 4th toe of the left and 3 scattered excoriations on the right foot. SKIN: No definitive splinter hemorrhages, Janeway lesion or other peripheral stigmata of endocarditis were noted. NEUROLOGIC: He was alert and oriented x4. He was moving all 4 extremities equally. LABORATORY: White count 13,000 on admission, today 9.7, hematocrit 37, platelets of 97, 87% neutrophils. Creatinine 1.2. Blood cultures from December 12 two sets growing group B strep. Urinalysis showed no pyuria. INR 2.5. Chest CT showed some chronic left upper lobe and right upper lobe small clots with evidence of atherosclerotic disease in the coronary arteries with some mild atelectasis or early infiltrate in the lingula, otherwise within normal limits. Head CT showed no acute changes but some chronic changes consistent with small-vessel ischemic disease. ASSESSMENT AND PLAN: This is a 81-year-old male who presents to the emergency room with malaise, headache and neck pain and was found to have sepsis and rapidly his blood cultures are positive with group B strep. Suspect portal of entry is left lower extremity, left toe. There is concern for JUICE MIXER involvement primarily the cervical spine but rapid overnight improvement less suggestive of presence of epidural abscess. 1. Sepsis. 2. Group B strep bacteremia. Source is unclear but suspicious for left lower extremity, 2nd toe. 3. Headache and neck pain now resolved. To completely evaluate, planning MRI. RECOMMENDATIONS: 1. MRI of C-spine with and without contrast. 2. Continue ceftriaxone 2 g IV daily. At this point, because of low suspicion of meningitis and central nervous system involvement, we will continue once daily dosing at this point. 3. Note that patient with multiple antibiotic intolerances but no true allergies. 4. We will repeat blood cultures after 48 hours of antibiotics. 5. Based on clearance of antibiotics, we will determine if needs echocardiogram for further evaluation of endocarditis, but at this point, patient does not have a murmur or peripheral stigmata of endocarditis to warrant further workup. Thank you for this consultation. We will continue to follow on a daily basis. ADDENDUM 12/13/162027 MRI C spine without discitis, epidural abscess, OM. /[id number]/MODL MTDD
[2016-12-14 04:32] LABS: % IMMATURE GRANULYOCYTES 0.4 % (0.0-1.1); ABSOLUTE IMMATURE GRANULOCYTES 0.02 10^3/uL (0.00-0.10); ADD DIFF? NO; ADD MORPH? NO; ADD SCAN? NO; ATYPICAL LYMPHOCYTE FLAG 0 (0-99); FRAGMENT RBC FLAG 0 (0-99); HEMATOCRIT 39.7 % (40.0-51.0); HEMOGLOBIN 12.6 g/dL (13.7-17.5); LEFT SHIFT FLG 10 (0-99); LIPEMIA HEMOLYSIS FLAG 80 (0-99); MEAN CELL HEMOGLOBIN 28.1 pg (27.9-34.1); MEAN CELL HEMOGLOBIN CONCENTR. 31.7 g/dL (32.4-36.7); MEAN CELL VOLUME 88.6 fL (81.5-99.8); MEAN PLATELET VOLUME 10.8 fL (8.7-11.7); PLATELET CLUMPS FLAG 10 (0-99); PLATELET COUNT 85 10^3/uL (150-400); RED BLOOD CELL COUNT 4.48 10^6/uL (4.40-6.38); RED CELL DISTRIBUTION WIDTH 16.1 % (11.5-15.2)
[2016-12-14 04:43] LABS: INR 1.86 (0.83-1.16); PROTIME(PATIENT) 21.5 SEC (12.0-15.0)
[2016-12-14 04:48] LABS: ANION GAP 9 mEq/L (8-16); CALCIUM 7.9 mg/dL (8.5-10.4); CARBON DIOXIDE 25 mEq/l (22-31); CHLORIDE 108 mEq/L (97-110); CREATININE 1.1 mg/dL (0.7-1.3); GLOMERULAR FILTRATION RATE > 60; GLUCOSE 127 mg/dL (70-100); POTASSIUM 4.1 mEq/L (3.5-5.2); SODIUM 142 mEq/L (134-144)
[2016-12-14] MEDS: amLODIPine BESYLATE 5 MG TAB PO SCH (07:37)
[2016-12-14] MEDS: ASPIRIN 81 MG CHEWABLE TAB PO SCH ×2 (07:38→11:05)
[2016-12-14] MEDS: cefTRIAXone 2 GM in D5W 50 ML IV SCH (07:38)
[2016-12-14] MEDS: WARFARIN SODIUM 5 MG TAB PO SCH (11:06)
[2016-12-14] MEDS: LISINOPRIL 20 MG TAB PO SCH ×3 (12:24→21:10)
--- NOTE | 2016-12-14 12:33 | PCMIDPN ---
Assessment/Plan: #GBS bacteremia, unclear source, possible L 2nd toe. No evidence of cervical spine involvement --X ray L foot today shows no clear evidence of underlying osteomyelitis just cellulitis --repeat blood cultures --cardiac eval if persistently positive blood cx --if clearance of blood cultures today will need 10-14 days of IV antibiotics. Discussed PICC line with patient at bedside, will place PICC line friday if blood cx still negative Meds Ceftriaxone 2gm IV daily #3 Subjective: Patient denies headache or neck pain. No other complaints Objective: Vital Signs Temp Pulse Resp BP Pulse Ox 36.9 C 69 17 134/58 H 95 12/14/16 12:08 12/14/16 12:08 12/14/16 12:08 12/14/16 12:08 12/14/16 12:08 Laboratory Results 12/14/16 04:03 12/14/16 04:03 12/13/16 12/14/16 12/15/16 05:59 05:59 05:59 Intake Total 2523 1920 Output Total 650 1470 Balance 1873 450 - Physical Exam General Appearance: alert, no apparent distress, obese EENT: pale conjunctiva, other (Edentulous) Respiratory: lungs clear, No accessory muscle use Neck: supple, other (Thick neck), No lymphadenopathy (L), No lymphadenopathy (R) Cardiac/Chest: regular rate, rhythm Extremities: pedal edema, other (Left 2nd toe with swelling and mild erythema with ulceration at the tip) Peripheral Pulses: 0: dorsalis-pedis (R), dorsalis-pedis (L) Abdomen: non-tender, soft Male Genitalia: No melissa Skin: warm/dry, other (Hyperpigmentation in the bilateral lower extremity sock distribution), No rash ICD10 Worksheet Patient Problems: Problems Problem Status Onset Cervical strain Acute Dehydration Acute Head injury Acute Hypoxemia Acute Nausea, vomiting, and diarrhea Acute Pancreatitis Acute
[2016-12-14] MEDS: CALCIUM CARBONATE 500 MG CHEWABLE TAB PO PRN (13:16)
--- NOTE | 2016-12-14 14:24 | HOSPPROG ---
Hospitalist Progress Note Assessment/Plan: * Severe Sepsis - GBS -source - toe on left foot - Xray negative for osteo -IV ceftriaxone - repeat BC pending * Metabolic encephalopathy - improved * PE/DVT -chronic warfarin - resume * Troponin elevation - suspect due to stress of sepsis -consider eventual stress testing * DM II * Afib * HTN - resume meds Subjective: No new complaints Objective: Vital Signs Temp Pulse Resp BP Pulse Ox 36.9 C 69 17 134/58 H 95 12/14/16 12:08 12/14/16 12:08 12/14/16 12:08 12/14/16 12:08 12/14/16 12:08 Laboratory Results 12/14/16 04:03 12/14/16 04:03 12/13/16 12/14/16 12/15/16 05:59 05:59 05:59 Intake Total 2523 1920 Output Total 650 1470 Balance 1873 450 PT 21.5 SEC (12.0-15.0) H 12/14/16 04:03 INR 1.86 (0.83-1.16) H 12/14/16 04:03 - Physical Exam Constitutional: no apparent distress, appears nourished, not in pain Cardiovascular: regular rate and rhythym, no murmur, rub, or gallop Respiratory: no respiratory distress, no rales or rhonchi, clear to auscultation Gastrointestinal: normoactive bowel sounds, soft, non-tender abdomen, no palpable masses Skin: warm, induration, rash, other (2nd toe left foot with skin breakdown cracking, minimal erythema), No fluctuance Neurologic: AAOx3, sensation intact bilaterally Psychiatric: interacting appropriately, not anxious, not encephalopathic, thought process linear ICD10 Worksheet Patient Problems: Problems Problem Status Onset Cervical strain Acute Dehydration Acute Head injury Acute Hypoxemia Acute Nausea, vomiting, and diarrhea Acute Pancreatitis Acute
[2016-12-15 05:17] LABS: % IMMATURE GRANULYOCYTES 0.4 % (0.0-1.1); ABSOLUTE IMMATURE GRANULOCYTES 0.02 10^3/uL (0.00-0.10); ADD DIFF? NO; ADD MORPH? NO; ADD SCAN? NO; ATYPICAL LYMPHOCYTE FLAG 0 (0-99); FRAGMENT RBC FLAG 0 (0-99); HEMATOCRIT 41.3 % (40.0-51.0); HEMOGLOBIN 13.2 g/dL (13.7-17.5); LEFT SHIFT FLG 10 (0-99); LIPEMIA HEMOLYSIS FLAG 80 (0-99); MEAN CELL HEMOGLOBIN 28.2 pg (27.9-34.1); MEAN CELL VOLUME 88.2 fL (81.5-99.8); MEAN PLATELET VOLUME 11.1 fL (8.7-11.7); PLATELET CLUMPS FLAG 10 (0-99); PLATELET COUNT 89 10^3/uL (150-400); RED BLOOD CELL COUNT 4.68 10^6/uL (4.40-6.38)
[2016-12-15 05:28] LABS: ANION GAP 8 mEq/L (8-16); CALCIUM 8.4 mg/dL (8.5-10.4); CARBON DIOXIDE 26 mEq/l (22-31); CHLORIDE 108 mEq/L (97-110); CHOLESTEROL 116 mg/dL (140-220); CHOLESTEROL/HDL RATIO 3.74 RATIO (1.00-4.97); GLOMERULAR FILTRATION RATE > 60; GLUCOSE 100 mg/dL (70-100); HIGH DENSITY LIPOPROTEIN 31 mg/dL (40-65); LDL/HDL RATIO 1.71 RATIO (1.00-3.64); LOW DENSITY LIPOPROTEIN 53 mg/dL (80-100); NON-HIGH DENSITY LIPOPROTEIN 85 mg/dL (90-129); POTASSIUM 4.2 mEq/L (3.5-5.2); SODIUM 142 mEq/L (134-144); TRIGLYCERIDE 161 mg/dL (40-150); VERY LOW DENSITY LIPOPROTEINS 32 mg/dL (8-25)
[2016-12-15 05:44] LABS: INR 1.35 (0.83-1.16); PROTIME(PATIENT) 16.7 SEC (12.0-15.0)
[2016-12-15] MEDS: amLODIPine BESYLATE 5 MG TAB PO SCH (07:45)
[2016-12-15] MEDS: cefTRIAXone 2 GM in D5W 50 ML IV SCH (07:45)
[2016-12-15] MEDS: ASPIRIN 81 MG CHEWABLE TAB PO SCH (07:46)
[2016-12-15 09:30] LABS: ALBUMIN 3.1 g/dL (3.5-5.0); BILIRUBIN,TOTAL 0.7 mg/dL (0.1-1.4); BILIRUBIN-CONJUGATED 0.5 mg/dL (0.0-0.5); BILIRUBIN-UNCONJUGATED 0.2 mg/dL (0.0-1.1)
[2016-12-15] MEDS: WARFARIN SODIUM 5 MG TAB PO SCH (12:23)
--- NOTE | 2016-12-15 13:30 | WOCRNPDOC ---
WOCRN Advanced Assessment Note - Skin Integrity Problem, Advanced Assess Left Second Toe Diabetic Ulcer Dressing Type: Band Aid Dressing Description: Intact Exudate Amount: Scant Exudate Color: Reddish/Yellow Exudate Characteristic(s): Purulent, Serosanguinous Cassi Wound Tissue: Erythema, Swollen, Xerotic, Hyperkeratotic Cassi Wound Swelling: Moderate Wound Bed Color: Red Wound Bed Constitution: Smooth Tissue Site Odor: None Site Measurement - Head-to-Toe Length X Width X Depth (cm): 0.2cmx0.3cmx0.1cm Skin Integrity Problem Comment: Small wound noted on distal aspect of L 2nd toe , w/ trace purulence observed during assessment. This wound is surrounded by hyperkeratotic tissue, which is hard and dry, consistent in appearance w/ DFU. Erythema and swelling extending up through L foot, w/ c/o associated pain. Wound care will continue to follow this patient, rounding again on 12/17.
--- NOTE | 2016-12-15 13:30 | PCMIDPN ---
Assessment/Plan: # Sepsis, resolved #GBS bacteremia, source L 2nd toe, bedside debridement today uncovered pus, wound possible tracking to bone. x ray neg for OM --repeat blood cultures pending --MRI left lower extremity to evaluate for osteomyelitis and/or retained abscess left 2nd toe. Surgical intervention may be needed but challenging as clinical exam consistent with arterial disease of the lower extremities Meds Ceftriaxone 2gm IV daily #3 Microbiology 12/12/16 blood cultures 2 sets: Strep Agalactiae Group B 12/14/16 Blood Culture - 2 sets pending Subjective: patient upset about all the testing some pain associated with L 2nd toe does not want to go to SNF Objective: Vital Signs Temp Pulse Resp BP Pulse Ox 36.8 C 63 15 134/56 H 92 12/15/16 10:51 12/15/16 10:51 12/15/16 10:51 12/15/16 10:51 12/15/16 10:51 Laboratory Results 12/15/16 03:49 12/15/16 03:49 12/14/16 12/15/16 12/16/16 05:59 05:59 05:59 Intake Total 1920 600 Output Total 1470 1150 Balance 450 -550 - Physical Exam General Appearance: alert, no apparent distress EENT: other (Edentulous) Respiratory: lungs clear, No accessory muscle use Cardiac/Chest: regular rate, rhythm Extremities: inflammation (Left 2nd toe with swelling and erythema, debridement of tip of toe uncovered purulent material. Even with opening of wound on tip of toe, exam continued to be consistent with fluctuance), other (Dependent rubor ) Peripheral Pulses: 0: dorsalis-pedis (R), dorsalis-pedis (L) Abdomen: non-tender, soft Male Genitalia: No melissa, No scrotal edema Skin: No rash Neuro/Psych: alert, normal mood/affect, oriented x 3 - Time Spent With Patient Time Spent with Patient: greater than 25 minutes Time Spent with Patient: Greater than 25 minutes spent on this patients care, greater than 50% of time spent counseling, educating, and coordinating care regarding the above mentioned plan. ICD10 Worksheet Patient Problems: Problems Problem Status Onset Elevated troponin Acute Pulmonary embolus Acute Cervical strain Acute Dehydration Acute Head injury Acute Hypoxemia Acute Nausea, vomiting, and diarrhea Acute Pancreatitis Acute
--- NOTE | 2016-12-15 14:49 | HOSPPROG ---
Hospitalist Progress Note Assessment/Plan: * Severe Sepsis - GBS -source - toe on left foot - MRI pending r/o osteo -IV ceftriaxone - repeat BC pending * Diabetic foot infection -consider vascular studies * Metabolic encephalopathy - improved * PE/DVT -chronic warfarin - resume * Troponin elevation - suspect due to stress of sepsis -stress test in am * DM II * Afib * HTN - resume meds Subjective: no new complaints. Objective: Vital Signs Temp Pulse Resp BP Pulse Ox 36.8 C 63 15 134/56 H 92 12/15/16 10:51 12/15/16 10:51 12/15/16 10:51 12/15/16 10:51 12/15/16 10:51 Laboratory Results 12/15/16 03:49 12/15/16 03:49 12/14/16 12/15/16 12/16/16 05:59 05:59 05:59 Intake Total 1920 600 Output Total 1470 1150 Balance 450 -550 PT 16.7 SEC (12.0-15.0) H 12/15/16 03:49 INR 1.35 (0.83-1.16) H 12/15/16 03:49 - Physical Exam Constitutional: no apparent distress, appears nourished, not in pain Cardiovascular: regular rate and rhythym, no murmur, rub, or gallop Respiratory: no respiratory distress, no rales or rhonchi, clear to auscultation Gastrointestinal: normoactive bowel sounds, soft, non-tender abdomen, no palpable masses Skin: no rashes or abrasions, no fluctuance, no induration Neurologic: AAOx3, sensation intact bilaterally Psychiatric: interacting appropriately, not anxious, not encephalopathic, thought process linear ICD10 Worksheet Patient Problems: Problems Problem Status Onset Elevated troponin Acute Pulmonary embolus Acute Cervical strain Acute Dehydration Acute Head injury Acute Hypoxemia Acute Nausea, vomiting, and diarrhea Acute Pancreatitis Acute
[2016-12-15] MEDS ORDERED: GADOBUTROL 10 ML VIAL IVP ONE (16:27)
[2016-12-15] MEDS: ACETAMINOPHEN 500 MG TAB PO PRN (23:10)
[2016-12-16 04:27] LABS: ADD DIFF? NO; ADD MORPH? NO; ADD SCAN? NO; ATYPICAL LYMPHOCYTE FLAG 0 (0-99); FRAGMENT RBC FLAG 0 (0-99); HEMATOCRIT 40.3 % (40.0-51.0); HEMOGLOBIN 12.7 g/dL (13.7-17.5); LEFT SHIFT FLG 0 (0-99); LIPEMIA HEMOLYSIS FLAG 80 (0-99); MEAN CELL HEMOGLOBIN 27.9 pg (27.9-34.1); MEAN CELL HEMOGLOBIN CONCENTR. 31.5 g/dL (32.4-36.7); MEAN CELL VOLUME 88.6 fL (81.5-99.8); MEAN PLATELET VOLUME 10.8 fL (8.7-11.7); PLATELET CLUMPS FLAG 0 (0-99); PLATELET COUNT 99 10^3/uL (150-400); RED BLOOD CELL COUNT 4.55 10^6/uL (4.40-6.38)
[2016-12-16 04:36] LABS: INR 1.49 (0.83-1.16)
[2016-12-16 05:02] LABS: ANION GAP 5 mEq/L (8-16); CALCIUM 8.6 mg/dL (8.5-10.4); CARBON DIOXIDE 28 mEq/l (22-31); CHLORIDE 107 mEq/L (97-110); CREATININE 1.1 mg/dL (0.7-1.3); GLOMERULAR FILTRATION RATE > 60; GLUCOSE 105 mg/dL (70-100); POTASSIUM 4.3 mEq/L (3.5-5.2); SODIUM 140 mEq/L (134-144)
[2016-12-16] MEDS: amLODIPine BESYLATE 5 MG TAB PO SCH (09:27)
[2016-12-16] MEDS: cefTRIAXone 2 GM in D5W 50 ML IV SCH (09:27)
[2016-12-16] MEDS: ASPIRIN 81 MG CHEWABLE TAB PO SCH (09:27)
[2016-12-16] MEDS: WARFARIN SODIUM 5 MG TAB PO SCH (09:34)
--- NOTE | 2016-12-16 09:49 | PCMIDPN ---
Assessment/Plan: Assessment: Group B strep bacteremia from left 2nd toe source. MRI of the left foot reveals distal tuft osteomyelitis. Will discuss case with Dr. Alec Dietrich who is the surgeon for this patient on previous occasions. Meanwhile will continue the ceftriaxone 2 g IV Q 24 hours. Repeat blood cultures from 12/14 are no growth to date. If this holds up the patient will need antibiotic therapy through 12/28 provided he undergoes amputated of resection of the osteomyelitic area. Plan: 1. Continue ceftriaxone 2 g IV Q 24 hours. 2. Follow surgical opinion regarding osteomyelitis amputation and vascular issues. 3. Follow clinical appearance. Subjective: Patient is resting in his hospital bed. He has no particular complaint. Feels better since the antibiotics were instituted. No fevers or chills. Objective: Ceftriaxone #4 Vital Signs Temp Pulse Resp BP Pulse Ox 36.5 C 61 16 154/72 H 91 L 12/16/16 07:09 12/16/16 07:09 12/16/16 07:09 12/16/16 07:09 12/16/16 07:09 Microbiology 12/15/16 13:00 Gram Stain - Final Foot - Eswab Laboratory Results 12/16/16 03:44 12/16/16 03:44 12/15/16 12/16/16 12/17/16 05:59 05:59 05:59 Intake Total 600 400 Output Total 1150 600 Balance -550 -200 - Physical Exam General Appearance: WD/WN, alert, no apparent distress, non-toxic Respiratory: lungs clear, normal breath sounds, No respiratory distress Cardiac/Chest: regular rate, rhythm, No tachycardia Extremities: non-tender, swelling, erythema, No normal inspection Skin: normal color, warm/dry, No rash Neuro/Psych: alert, normal mood/affect, oriented x 3 ICD10 Worksheet Patient Problems: Problems Problem Status Onset Elevated troponin Acute Pulmonary embolus Acute Cervical strain Acute Dehydration Acute Head injury Acute Hypoxemia Acute Nausea, vomiting, and diarrhea Acute Pancreatitis Acute
--- NOTE | 2016-12-16 14:08 | HOSPPROG ---
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 Dietrich to see * Severe PVD with left leg claudication -99% left internal iliac, 70% external iliac stenosis -unclear why no intervention performed in past * 5.2 cm AAA -unclear why no intervention * Metabolic encephalopathy - improved * PE/DVT -chronic warfarin * Troponin elevation - suspect due to stress of sepsis -patient clearly vasculopath -stress test recommended - patient refused * DM II * Afib * HTN - resume meds Palliative care consult ordered - patient refused multiple interventions Remains full cor despite enlarging AAA Subjective: No new complaints. Feels overwhelmed. Doesn't understand all this medical intervention when he has AAA that "might blow at any time" Objective: Vital Signs Temp Pulse Resp BP Pulse Ox 36.7 C 61 20 144/68 H 95 12/16/16 11:10 12/16/16 11:10 12/16/16 11:10 12/16/16 11:10 12/16/16 11:10 Microbiology 12/15/16 13:00 Gram Stain - Final Foot - Eswab Laboratory Results 12/16/16 03:44 12/16/16 03:44 12/15/16 12/16/16 12/17/16 05:59 05:59 05:59 Intake Total 600 400 Output Total 1150 600 350 Balance -550 -200 -350 PT 18.0 SEC (12.0-15.0) H 12/16/16 03:44 INR 1.49 (0.83-1.16) H 12/16/16 03:44 Old chart reviewed - 5.2 cm AAA, 99% left internal iliac stenosis - seen by Dr. Emery 1 year ago case d/w Dr. Vivar ID - amputation recommended of toe MRI toe - + osteomyelitis - Physical Exam Constitutional: no apparent distress, appears nourished, not in pain Cardiovascular: regular rate and rhythym, no murmur, rub, or gallop Respiratory: no respiratory distress, no rales or rhonchi, clear to auscultation Gastrointestinal: normoactive bowel sounds, soft, non-tender abdomen, no palpable masses Skin: no rashes or abrasions, no fluctuance, no induration Neurologic: AAOx3, sensation intact bilaterally Psychiatric: interacting appropriately, not encephalopathic, thought process linear, anxious, No agitated ICD10 Worksheet Patient Problems: Problems Problem Status Onset Elevated troponin Acute Pulmonary embolus Acute Cervical strain Acute Dehydration Acute Head injury Acute Hypoxemia Acute Nausea, vomiting, and diarrhea Acute Pancreatitis Acute
--- NOTE | 2016-12-16 17:50 | PDPCPN ---
Palliative Care Progress Note Assessment/Plan: Referring provider: Dr Valenzuela Reason for consult: Complex medical decision making Symptom control HPI: Adams Cameron is a 81 yo male with PMH PVD, DM, AAA (5.2 cm), and CAD admitted to the hospital for fall with fevers and sepsis. Found to have cellulitis and sepsis 2/2 2nd toe with MRI showing osteomyelitis. Surgery recommended for amputation and started on iV antibiotics. With severe PVD vascularization also recommended with stress test. Patient has been refusing some tests and treatments. Palliative care consulted for complex medical decision making. Met with Adams this afternoon. He stated he did not want to come to the hospital but his friend Velia said he should. He feels he knows he could at any minute with his AAA but prefers to just live his life. He does not like a lot of tests or medical procedures as he doesn't want to know how sick he is as he just wants to live his life the way he wants. He spoke about having to make end of life decisions for his brother and his and how hard it was for him as he had no idea of what they might want. We spoke about advanced directives and he stated Velia helps him with medical information but is not sure how "involved" she wants to be. He stated he would not want resuscitation or other measures if it would not return him back to a "normal baseline". He was not ready to make a decision about DNR yet and stated "back in the day the doctor made all of the decisions". He does want some medical interventions to return him back to a good quality of life but gets frustrated with how many tests and procedures need to be done. Assessment: Physical: - Pain: none -tylenol PRN Emotional/psychological: doing ok. Has some support from Friend Velia Advanced Care Planning: Is patient decisional?: yes Code Status: Full MD POA: Unsure. He stated he wanted Velia but then changed his mind. Plan: Will continue to address goals of care. It seems he does want some interventions but limited based on how much he can tolerate. 12/17/16 11:17 Subjective: too many people and medical tests Objective: Social History: . Lives in Senior housing and has a good friend Velia. 1 sister lives out of state Medication list reviewed ROS: General: fatigue, weakness ENT: negative Resp: negative GI: negative : negative MS: negative Skin: negative Neuro: negative Psych: negative Functional assessment: PPS: 60% Functional status: mostly independent Vital Signs Temp Pulse Resp BP Pulse Ox 36.8 C 71 20 140/67 H 94 12/16/16 14:49 12/16/16 14:49 12/16/16 14:49 12/16/16 14:49 12/16/16 14:49 Microbiology 12/15/16 13:00 Gram Stain - Final Foot - Eswab Laboratory Results 12/16/16 03:44 12/16/16 03:44 12/15/16 12/16/16 12/17/16 05:59 05:59 05:59 Intake Total 649 645 5211 Output Total 1150 600 900 Balance -550 -200 100 PT 18.0 SEC (12.0-15.0) H 12/16/16 03:44 INR 1.49 (0.83-1.16) H 12/16/16 03:44 Physical Exam - Physical Exam General Appearance: alert, no apparent distress Respiratory: No respiratory distress, No accessory muscle use Skin: normal color, warm/dry Extremities: pedal edema (trace) Neuro/Psych: alert, oriented x 3 ICD10 Worksheet Patient Problems: Problems Problem Status Onset Elevated troponin Acute Palliative care encounter Acute Pulmonary embolus Acute Cervical strain Acute Dehydration Acute Head injury Acute Hypoxemia Acute Nausea, vomiting, and diarrhea Acute Pancreatitis Acute - ICD10 Problem Qualifiers (1) Palliative care encounter
--- NOTE | 2016-12-16 19:40 | SOAPPROG ---
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 THIS HAS BEEN ASSOCIATED WITH SEPSIS AND CELLULITIS. IT IS COMPLICATED BY THE FACT THE PATIENT HAS SOME NEUROPATHY IN DIABETES AND APPARENT PERIPHERAL VASCULAR DISEASE. I CANNOT PALPATE THE PEDAL PULSES RISKS AND OPTIONS BEEN FULLY DISCUSSED AND AND HE NEEDS AMPUTATION OF THE 2ND TOE BUT 1ST WE NEED TO STAB WISHES VASCULARITY Plan: NONINVASIVE ARTERIAL STUDIES / PROBABLE LEFT 2ND TOE AMPUTATION IN THE A.M. 12/16/16 19:38 STOP Objective: Vital Signs Temp Pulse Resp BP Pulse Ox 36.8 C 72 18 112/73 94 12/16/16 19:25 12/16/16 19:25 12/16/16 19:25 12/16/16 19:25 12/16/16 19:25 Microbiology 12/15/16 13:00 Gram Stain - Final Foot - Eswab Laboratory Results 12/16/16 03:44 12/16/16 03:44 12/15/16 12/16/16 12/17/16 05:59 05:59 05:59 Intake Total 526 669 2351 Output Total 1150 600 900 Balance -550 -200 500 PT 18.0 SEC (12.0-15.0) H 12/16/16 03:44 INR 1.49 (0.83-1.16) H 12/16/16 03:44 ICD10 Worksheet Patient Problems: Problems Problem Status Onset Elevated troponin Acute Palliative care encounter Acute Pulmonary embolus Acute Cervical strain Acute Dehydration Acute Head injury Acute Hypoxemia Acute Nausea, vomiting, and diarrhea Acute Pancreatitis Acute
[2016-12-16] MEDS: LISINOPRIL 20 MG TAB PO SCH (20:48)
[2016-12-17] MEDS: ACETAMINOPHEN 500 MG TAB PO PRN (04:24)
[2016-12-17 06:08] LABS: % IMMATURE GRANULYOCYTES 0.4 % (0.0-1.1); ABSOLUTE IMMATURE GRANULOCYTES 0.02 10^3/uL (0.00-0.10); ADD DIFF? NO; ADD MORPH? NO; ADD SCAN? NO; ATYPICAL LYMPHOCYTE FLAG 0 (0-99); FRAGMENT RBC FLAG 0 (0-99); HEMATOCRIT 40.5 % (40.0-51.0); HEMOGLOBIN 13.1 g/dL (13.7-17.5); LEFT SHIFT FLG 0 (0-99); LIPEMIA HEMOLYSIS FLAG 80 (0-99); MEAN CELL HEMOGLOBIN 28.1 pg (27.9-34.1); MEAN CELL HEMOGLOBIN CONCENTR. 32.3 g/dL (32.4-36.7); MEAN CELL VOLUME 86.7 fL (81.5-99.8); MEAN PLATELET VOLUME 10.3 fL (8.7-11.7); PLATELET CLUMPS FLAG 20 (0-99); PLATELET COUNT 109 10^3/uL (150-400); RED BLOOD CELL COUNT 4.67 10^6/uL (4.40-6.38); RED CELL DISTRIBUTION WIDTH 15.8 % (11.5-15.2)
[2016-12-17 06:20] LABS: INR 1.47 (0.83-1.16); PROTIME(PATIENT) 17.8 SEC (12.0-15.0)
[2016-12-17 06:56] LABS: ANION GAP 8 mEq/L (8-16); CALCIUM 8.4 mg/dL (8.5-10.4); CARBON DIOXIDE 26 mEq/l (22-31); CHLORIDE 107 mEq/L (97-110); CREATININE 0.9 mg/dL (0.7-1.3); GLOMERULAR FILTRATION RATE > 60; GLUCOSE 107 mg/dL (70-100); POTASSIUM 4.4 mEq/L (3.5-5.2); SODIUM 141 mEq/L (134-144)
[2016-12-17] MEDS: cefTRIAXone 2 GM in D5W 50 ML IV SCH (08:10)
[2016-12-17] MEDS: ASPIRIN 81 MG CHEWABLE TAB PO SCH (08:11)
[2016-12-17] MEDS: amLODIPine BESYLATE 5 MG TAB PO SCH (08:11)
[2016-12-17] MEDS ORDERED: BUPIVACAINE 0.5% 30 ML SDV ONE ×2 (11:28→17:54)
[2016-12-17] MEDS: WARFARIN SODIUM 5 MG TAB PO SCH (11:46)
--- NOTE | 2016-12-17 16:04 | HOSPPROG ---
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 Dietrich * Severe PVD with left leg claudication -99% left internal iliac, 70% external iliac stenosis per CTA 1 year ago -bypass recommended by Dr. Dietrich - patient still "thinking about it" -arterial studies prior to amputation per Dr. Dietrich * 5.2 cm AAA -endovascular stent recommended by Dr. 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 Good historian regarding previous recommendation from Dr. Srinivasan and Dr. Dietrich Objective: Vital Signs Temp Pulse Resp BP Pulse Ox 36.7 C 60 24 H 158/66 H 92 12/17/16 11:17 12/17/16 11:17 12/17/16 11:17 12/17/16 11:17 12/17/16 11:17 Microbiology 12/15/16 13:00 Gram Stain - Final Foot - Eswab Wound Culture - Final Strep Agalactiae Group B Laboratory Results 12/17/16 05:56 12/17/16 05:56 12/16/16 12/17/16 12/18/16 05:59 05:59 05:59 Intake Total 400 1950 Output Total 600 1450 400 Balance -200 500 -400 PT 17.8 SEC (12.0-15.0) H 12/17/16 05:56 INR 1.47 (0.83-1.16) H 12/17/16 05:56 d/w Dr. Dietrich - he will address vascular issues tele reviewed - NSR - Physical Exam Constitutional: no apparent distress, appears nourished, not in pain Cardiovascular: regular rate and rhythym, no murmur, rub, or gallop Respiratory: no respiratory distress, no rales or rhonchi, clear to auscultation Gastrointestinal: normoactive bowel sounds, soft, non-tender abdomen, no palpable masses Skin: no rashes or abrasions, no fluctuance, no induration Neurologic: AAOx3, sensation intact bilaterally Psychiatric: interacting appropriately, not anxious, not encephalopathic, thought process linear ICD10 Worksheet Patient Problems: Problems Problem Status Onset Elevated troponin Acute Palliative care encounter Acute Pulmonary embolus Acute Cervical strain Acute Dehydration Acute Head injury Acute Hypoxemia Acute Nausea, vomiting, and diarrhea Acute Pancreatitis Acute
[2016-12-17] MEDS ORDERED: DEXAMETHASONE 4 MG/ML VIAL ONE (18:08)
[2016-12-17] MEDS ORDERED: METOCLOPRAMIDE 10 MG/2 ML VIAL ONE (18:08)
[2016-12-17] MEDS ORDERED: PROPOFOL/EMULSION 500 MG/50 ML BOTTLE IV ONE (18:11)
[2016-12-17] MEDS ORDERED: MIDAZOLAM 2 MG/2 ML VIAL ONE (18:11)
[2016-12-17] MEDS ORDERED: fentaNYL 250 MCG/5 ML INJ ONE (18:12)
[2016-12-17] MEDS ORDERED: ONDANSETRON 4 MG/2 ML VIAL IVP PRN (18:34)
[2016-12-17] MEDS ORDERED: OXYCODONE/APAP 5/325 TAB PO PRN (18:34)
[2016-12-17] MEDS ORDERED: HYDROmorphONE/DILAUDID 1 MG/ML SYR IVP PRN (18:34)
--- NOTE | 2016-12-17 18:35 | POSTOPPROG ---
Post Op Note Date of Operation: 12/17/16 Surgeon: Refugio Dietrich Burglar Alarm Assembler: Betty Barrera Anesthesiologist: Oseas Sim Anesthesia: GET(General Endotracheal) Pre-op Diagnosis: osteomyelitis, DM, PVD Post-op Diagnosis: same Procedure: L 2nd toe amputation Inf/Abcess present in the surg proc area at time of surgery?: Yes Depth: Deep Incisional (Fascial) EBL: Minimal Complications: none Specimen(s): to pathology
[2016-12-17] MEDS ORDERED: THROMBIN (BOVINE) 5,000 UNIT VIAL TP ONE (18:44)
[2016-12-17] MEDS ORDERED: SUGAMMADEX SODIUM 200 MG/2 ML VIAL IVP ONE (18:49)
[2016-12-17] MEDS: LISINOPRIL 20 MG TAB PO SCH (21:25)
[2016-12-17] MEDS ORDERED: BENZONATATE 100 MG CAP PO PRN (22:43)
[2016-12-17] MEDS ORDERED: CEPACOL LOZENGE PO PRN (23:00)
--- NOTE | 2016-12-18 04:31 | CPIP ---
[f rep st] INVASIVE CARDIAC PROCEDURE PREOPERATIVE DIAGNOSIS: Left 3rd toe ischemia and osteomyelitis. Patient was seen for arterial studies preoperatively. He demonstrates good pulsatile flow to the an kle level bilaterally. Right is greater than left. His left tracings are somewhat blunted, all the way from the left hip. His ankle-brachial index is 0.67 on the left, and 0.8 on the right, but he does have pulsatile flow to the metatarsal level bilaterally. Although not perfect, these tracings should support healing of the toe amputation. /[id number]/MODL
[2016-12-18 05:35] LABS: % IMMATURE GRANULYOCYTES 0.5 % (0.0-1.1); ABSOLUTE IMMATURE GRANULOCYTES 0.03 10^3/uL (0.00-0.10); ADD DIFF? NO; ADD MORPH? NO; ADD SCAN? NO; ATYPICAL LYMPHOCYTE FLAG 50 (0-99); FRAGMENT RBC FLAG 0 (0-99); HEMATOCRIT 41.6 % (40.0-51.0); HEMOGLOBIN 13.1 g/dL (13.7-17.5); LEFT SHIFT FLG 0 (0-99); LIPEMIA HEMOLYSIS FLAG 80 (0-99); MEAN CELL HEMOGLOBIN 27.3 pg (27.9-34.1); MEAN CELL HEMOGLOBIN CONCENTR. 31.5 g/dL (32.4-36.7); MEAN CELL VOLUME 86.8 fL (81.5-99.8); MEAN PLATELET VOLUME 10.2 fL (8.7-11.7); PLATELET CLUMPS FLAG 0 (0-99); PLATELET COUNT 122 10^3/uL (150-400); RED BLOOD CELL COUNT 4.79 10^6/uL (4.40-6.38); RED CELL DISTRIBUTION WIDTH 15.5 % (11.5-15.2)
[2016-12-18 05:49] LABS: CALCIUM 8.8 mg/dL (8.5-10.4); CARBON DIOXIDE 25 mEq/l (22-31); CHLORIDE 105 mEq/L (97-110); GLOMERULAR FILTRATION RATE > 60; GLUCOSE 146 mg/dL (70-100); SODIUM 141 mEq/L (134-144)
[2016-12-18 06:26] LABS: INR 1.37 (0.83-1.16); PROTIME(PATIENT) 16.9 SEC (12.0-15.0)
[2016-12-18 06:29] LABS: ANION GAP 11 mEq/L (8-16); POTASSIUM 4.9 mEq/L (3.5-5.2)
[2016-12-18] MEDS: amLODIPine BESYLATE 5 MG TAB PO SCH (09:19)
[2016-12-18] MEDS: ASPIRIN 81 MG CHEWABLE TAB PO SCH (09:19)
[2016-12-18] MEDS: cefTRIAXone 2 GM in D5W 50 ML IV SCH (09:19)
[2016-12-18] MEDS ORDERED: ALTEPLASE 2 MG VIAL IVP PRN (09:58)
--- NOTE | 2016-12-18 10:44 | PCMIDPN ---
Assessment/Plan: # Sepsis, resolved, secondary to GBS L 2nd toe OM and bacteremia # GBS bacteremia, source L 2nd toe OM s/p amputation 12/17/2016. Bacteremia cleared 12/14/16. WBC normal, no fever --Planned 2 weeks of IV antibiotics to treat bacteremia now that infected toe resected, 12/28/16 stop date --PICC line placement, reviewed risk and benefits # Cassi-oral HSV --renal dose acyclovir 400mg QID (vs 5xD) x 5 days # Loose stool: hold off on r/o Cdiff unless persistent diarrhea, abdominal pain , fever, etc Meds Ceftriaxone 2gm IV daily #7 Microbiology 12/12/16 blood cultures 2 sets: Strep Agalactiae Group B 12/14/16 Blood Culture - 2 sets NGTD 12/15/16 wound cx: GBS Coordination with nursing Subjective: patient reluctant to get PICC Line Does not want to go to SNF intermittent pain L foot +large BM following surgery no associated with abdominal pain, fever Objective: Vital Signs Temp Pulse Resp BP Pulse Ox 36.8 C 65 18 123/46 H 90 L 12/18/16 07:17 12/18/16 07:17 12/18/16 07:17 12/18/16 07:17 12/18/16 07:17 Microbiology 12/15/16 13:00 Gram Stain - Final Foot - Eswab Wound Culture - Final Strep Agalactiae Group B Laboratory Results 12/18/16 05:09 12/18/16 05:09 12/17/16 12/18/16 12/19/16 05:59 05:59 05:59 Intake Total 1950 1300 200 Output Total 1450 1060 250 Balance 500 240 -50 - Physical Exam General Appearance: alert, no apparent distress EENT: other (Ulceration L lower lip c/w HSV) Respiratory: lungs clear Neck: supple Cardiac/Chest: irregularly irregular Extremities: other (Dressing in place L foot. +dependent ruber ) Peripheral Pulses: 0: dorsalis-pedis (R), dorsalis-pedis (L) Abdomen: non-tender, soft Skin: No rash Neuro/Psych: alert, normal mood/affect - Time Spent With Patient Time Spent with Patient: greater than 35 minutes Time Spent with Patient: Greater than 35 minutes spent on this patients care, greater than 50% of time spent counseling, educating, and coordinating care regarding the above mentioned plan. ICD10 Worksheet Patient Problems: Problems Problem Status Onset Elevated troponin Acute Palliative care encounter Acute Pulmonary embolus Acute Cervical strain Acute Dehydration Acute Head injury Acute Hypoxemia Acute Nausea, vomiting, and diarrhea Acute Pancreatitis Acute
--- NOTE | 2016-12-18 11:23 | GOP ---
[f rep st] OPERATIVE REPORT DATE OF OPERATION: 12/17/2016 SURGEON: Refugio Dietrich MD PREOPERATIVE DIAGNOSIS: Peripheral vascular disease with osteomyelitis and sepsis involving the left 2nd toe. POSTOPERATIVE DIAGNOSIS: Peripheral vascular disease with osteomyelitis and sepsis involving the left 2nd toe. PROCEDURE PERFORMED: Left 2nd toe amputation at the metatarsophalangeal level. FINDINGS: Necrotic tip with exposed bone left 2nd toe and osteo ESTIMATED BLOOD LOSS: Negligible. DESCRIPTION OF PROCEDURE: The patient was taken to the operating room, where he received satisfactory general endotracheal anesthesia by Dr. Sim. The patient was placed in the supine position, prepped and draped in the usual sterile fashion. A fishmouth type incision was made at the patient's 2nd toe on the left foot. Incision was extended right down to the phalanx. Soft tissue was then divided sharply and then the bone was divided just above the MPJ and the remaining bone was smoothed off with a malcolm rasp. Hemostasis was assured with electrocautery and the wound was closed with interrupted 3-0 Prolene mattress sutures. The wound was infiltrated with Marcaine. He tolerated the procedure well, was taken to the recovery room in good condition. There were no complications. /[id number]/MODL MTDD
[2016-12-18] MEDS: ACYCLOVIR 400 MG TAB PO SCH ×3 (12:03→21:11)
--- NOTE | 2016-12-18 13:56 | SOAPPROG ---
JALIL Progress Note Assessment/Plan: Assessment: Visited patient today regarding AAA and bilateral iliac stenosis. Both are amendable to percutaneous repair. It would be preferable to stent the iliacs after stentgraft repair, rather than before, due to risk of dislodging the stents during large bore sheath placement at time of AAA repair. It would also benefit patient's LLE surgery/healing by repairing the both the AAA and the stenosis. Since patient has positive blood cultures, he is not a candidate for any stent placement for at least 2-3 weeks. Discussed all of the above with patient. Patient also wanted to know if his GB can be removed during the same hospital stay. Plan: IR will coordinate with Dr. Emery's office and give patient a date of procedure for the AAA and iliac stent placement, sometime in early part of January, before patient is discharged from current admission. It would be helpful for patient to have signed documents of medical power of corporate associate attorney, and a living will, prior to AAA repair, if patient can be talked into that. Dr. Dietrich was in the room towards the end of the discussion, and aware of all of the above. He will discuss with pt regarding cholecystectomy. Patient was good with waiting about a month before next admission (actually preferred it). 12/18/16 13:50 Objective: Vital Signs Temp Pulse Resp BP Pulse Ox 36.6 C 67 17 141/58 H 92 12/18/16 11:18 12/18/16 11:18 12/18/16 11:18 12/18/16 11:18 12/18/16 11:18 Microbiology 12/15/16 13:00 Gram Stain - Final Foot - Eswab Wound Culture - Final Strep Agalactiae Group B Laboratory Results 12/18/16 05:09 12/18/16 05:09 12/17/16 12/18/16 12/19/16 05:59 05:59 05:59 Intake Total 1950 1300 200 Output Total 1450 1060 250 Balance 500 240 -50 PT 16.9 SEC (12.0-15.0) H 12/18/16 05:09 INR 1.37 (0.83-1.16) H 12/18/16 05:09 labs noted ICD10 Worksheet Patient Problems: Problems Problem Status Onset Elevated troponin Acute Palliative care encounter Acute Pulmonary embolus Acute Cervical strain Acute Dehydration Acute Head injury Acute Hypoxemia Acute Nausea, vomiting, and diarrhea Acute Pancreatitis Acute
--- NOTE | 2016-12-18 13:59 | PDIAF ---
- Diagnosis Diagnosis: GBS bacteremia Code Status: Full Code - Medication Management Discharge Medications: Medications to Continue on Transfer Lisinopril [Zestril 20 mg (*)] 20 mg PO DAILY 08/01/16 [Last Taken 12/12/16] amLODIPine BESYLATE [Norvasc 5 mg (*)] 5 mg PO DAILY #30 tab 08/04/16 [Last Taken 12/12/16] Warfarin Sodium [Coumadin 5MG (*)] 7.5 mg PO SUMOWEFRSA 12/12/16 [Last Taken ] Warfarin Sodium [Coumadin 5MG (*)] 10 mg PO TUTH 12/12/16 [Last Taken 12/10/16] Lna Antibiotics: ceftriaxone 2gm IV daily Half-Way Antibiotic Stop Date: 12/28/16 Discharge Medications: Refer to the Discharge Home Medication list for PRN reason. PICC Care - Routine: Yes - Labs/Radiology CBC Date: 12/23/16 CMP Date: 12/23/16 Call or Fax Lab and Imaging Results to: [phone] shemar - Follow Up Care Current Providers and Referrals: Patient,NotPresent [Unknown] - As per Instructions Alondra Andrade MD [Medical Doctor] - 12/26/16 2:00 pm
--- NOTE | 2016-12-18 14:27 | SOAPPROG ---
SOAP Progress Note Assessment/Plan: Assessment/Plan: 81 Y diabetic M c hx PVD including AAA and iliac stenosis now s /p L 2nd toe amp for osteomyelitis. Seen with Dr. Dietrich. WBAT. Dressing change orders in. Discussed AAA repair at later date. Pt has hx gallstones and may want regis at same admission. This a possibility if does well, but not at same time as AAA. Dispo: pending. Pt does have sutures. would like f/u in 2-3 weeks. 12/18/16 14:25 Objective: Vital Signs Temp Pulse Resp BP Pulse Ox 36.6 C 67 17 141/58 H 92 12/18/16 11:18 12/18/16 11:18 12/18/16 11:18 12/18/16 11:18 12/18/16 11:18 Microbiology 12/15/16 13:00 Gram Stain - Final Foot - Eswab Wound Culture - Final Strep Agalactiae Group B Laboratory Results 12/18/16 05:09 12/18/16 05:09 12/17/16 12/18/16 12/19/16 05:59 05:59 05:59 Intake Total 1950 1300 200 Output Total 1450 1060 250 Balance 500 240 -50 PT 16.9 SEC (12.0-15.0) H 12/18/16 05:09 INR 1.37 (0.83-1.16) H 12/18/16 05:09 ICD10 Worksheet Patient Problems: Problems Problem Status Onset Elevated troponin Acute Palliative care encounter Acute Pulmonary embolus Acute Cervical strain Acute Dehydration Acute Head injury Acute Hypoxemia Acute Nausea, vomiting, and diarrhea Acute Pancreatitis Acute
--- NOTE | 2016-12-18 15:50 | HOSPPROG ---
Hospitalist Progress Note Assessment/Plan: Assessment: 81-year-old male presents with severe sepsis in the setting of group B strep bacteremia Plan: 1. Severe sepsis. Evidenced by sepsis-2 criteria/ics-2 definition, including fever (39.1 degree C), tachypnea (respiratory rate 36), leukocytosis (white blood cell count 13,100), clear source of infection including group B strep bacteremia, evidence of end-organ failure notably transient myocardial ischemia , acute kidney injury -status post IV fluids and empiric IV antibiotics -continue to monitor white blood cell count 2. Osteomyelitis. Left 2nd toe, amputation performed by Dr. Dietrich for source control 3. Group B strep bacteremia. Most likely source is skin wounds -will require PICC line and home IV antibiotics, longterm facility encouraged given patient's limitations with self-care -continue ceftriaxone -appreciate Infectious Disease assistance 4. Peripheral vascular disease. Chronic, severe, resulting in left leg claudication and resultant osteomyelitis with chronic wounds and neuropathy -99% left internal iliac, 70% external iliac per CT angiogram 1 year ago -discussed with Dr. Srinivasan, she recommends stenting once the patient's infection has been properly treated 5. Abdominal aortic aneurysm. 5.2 cm, endovascular stent recommended by Dr. Srinivasan , plan to perform once patient's above infection has been adequately treated 6. Acute encephalopathy. Evidenced by global brain dysfunction characterized as alteration in mentation, acute change from baseline, most likely secondary to the metabolic effects of acute kidney injury and toxic effects of infection -appreciate [employer] cog eval today to gauge whether patient will be safe to manage his own care at home 7. Chronic pulmonary embolism/deep venous thrombosis. POA a comma on Coumadin chronically, held for surgery, re-initiated, monitoring daily INR 8. Transient myocardial ischemia. Secondary to end-organ effect of severe sepsis, stress test recommended to the patient but he has refused -continue aspirin 81 mg 9. Diabetes mellitus type 2. Continue insulin 10. Atrial fibrillation. Paroxysmal, not currently on leander blocking agents, continue Coumadin 11. Hypertension. Chronic, continue amlodipine and lisinopril Diet. Diabetic Prophylaxis. High risk patient, currently on Coumadin, currently bridging with Lovenox Code. Full Disposition. Anticipated discharge is 12/19, pending stabilization of the issues as outlined above Subjective: Patient counseled on the need for PICC line, need for longterm facility assistance in the outpatient setting Objective: Vital Signs Temp Pulse Resp BP Pulse Ox 36.6 C 67 17 141/58 H 92 12/18/16 11:18 12/18/16 11:18 12/18/16 11:18 12/18/16 11:18 12/18/16 11:18 Microbiology 12/15/16 13:00 Gram Stain - Final Foot - Eswab Wound Culture - Final Strep Agalactiae Group B Laboratory Results 12/18/16 05:09 12/18/16 05:09 12/17/16 12/18/16 12/19/16 05:59 05:59 05:59 Intake Total 1950 1300 200 Output Total 1450 1060 250 Balance 500 240 -50 PT 16.9 SEC (12.0-15.0) H 12/18/16 05:09 INR 1.37 (0.83-1.16) H 12/18/16 05:09 - Time Spent With Patient Time Spent with Patient: greater than 35 minutes Time Spent with Patient: Greater than 35 minutes spent on this patients care, greater than 50% of time spent counseling, educating, and coordinating care regarding the above mentioned plan. - Physical Exam Constitutional: not in pain, chronically ill appearing, obese Cardiovascular: regular rate and rhythym, no murmur, rub, or gallop, edema ( Trace bilateral lower extremities), No tachycardia Respiratory: no respiratory distress, no rales or rhonchi, clear to auscultation Gastrointestinal: normoactive bowel sounds, soft, non-tender abdomen, no palpable masses Skin: other (Discoloration of the bilateral lower extremities, wounds on left foot) Neurologic: AAOx3, No sensation intact bilaterally (Paresthesias on the great toes bilaterally, reduced sensation present on the bilateral heels) Psychiatric: not anxious, other (Odd affect), No agitated ICD10 Worksheet Patient Problems: Problems Problem Status Onset Elevated troponin Acute Palliative care encounter Acute Pulmonary embolus Acute Cervical strain Acute Dehydration Acute Head injury Acute Hypoxemia Acute Nausea, vomiting, and diarrhea Acute Pancreatitis Acute
--- NOTE | 2016-12-18 16:23 | PDPCPN ---
Palliative Care Progress Note Assessment/Plan: HPI: Adams Cameron is a 81 yo male with PMH PVD, DM, AAA (5.2 cm), and CAD admitted to the hospital for fall with fevers and sepsis. Found to have cellulitis and sepsis 2/2 2nd toe with MRI showing osteomyelitis. Surgery recommended for amputation and started on iV antibiotics. With severe PVD vascularization also recommended with stress test. Patient has been refusing some tests and treatments. Palliative care consulted for complex medical decision making. Met with Adams this afternoon with Miriam Palacios from PCP office. Adams states he is doing ok and is ok with trena knowing all of his medical information but is still uncertain if she is willing to serve as his MDPOA and wants more time to think about this choice. He feels that he does not like getting "pushed" into doing things and needs time to think things through. He agreed that I could update Trena by phone on his medical status and plan for discharge. Assessment: Physical: - Pain: none -tylenol PRN Emotional/psychological: doing ok. Has some support from Friend Trena Advanced Care Planning: Is patient decisional?: yes Code Status: Full MD POA: Unsure. He stated he wanted Trena but then changed his mind. Plan: Wants to continue with medical interventions. He prefers a slower pace and to not feel rushed into doing too many things at once. CM looking in SNF at discharged for continued care. Subjective: occasional pain in toe Objective: Vital Signs Temp Pulse Resp BP Pulse Ox 36.6 C 67 17 141/58 H 92 12/18/16 11:18 12/18/16 11:18 12/18/16 11:18 12/18/16 11:18 12/18/16 11:18 Laboratory Results 12/18/16 05:09 12/18/16 05:09 12/17/16 12/18/16 12/19/16 05:59 05:59 05:59 Intake Total 1950 1300 200 Output Total 1450 1060 250 Balance 500 240 -50 PT 16.9 SEC (12.0-15.0) H 12/18/16 05:09 INR 1.37 (0.83-1.16) H 12/18/16 05:09 Physical Exam - Physical Exam General Appearance: alert, no apparent distress Respiratory: No respiratory distress, No accessory muscle use Skin: normal color, warm/dry Neuro/Psych: alert, oriented x 3 ICD10 Worksheet Patient Problems: Problems Problem Status Onset Elevated troponin Acute Palliative care encounter Acute Pulmonary embolus Acute Cervical strain Acute Dehydration Acute Head injury Acute Hypoxemia Acute Nausea, vomiting, and diarrhea Acute Pancreatitis Acute - ICD10 Problem Qualifiers (1) Palliative care encounter
[2016-12-18] MEDS: WARFARIN SODIUM 5 MG TAB PO SCH ×2 (16:59→17:06)
[2016-12-18] MEDS ORDERED: ENOXAPARIN 100 MG/ML SYR SC SCH (21:00)
[2016-12-18] MEDS: ENOXAPARIN 120 MG/0.8 ML SYR SC SCH (21:11)
[2016-12-18] MEDS: LISINOPRIL 20 MG TAB PO SCH (21:11)
[2016-12-18] MEDS: CALCIUM CARBONATE 500 MG CHEWABLE TAB PO PRN (21:11)
[2016-12-19 05:53] LABS: INR 1.33 (0.83-1.16); PROTIME(PATIENT) 16.5 SEC (12.0-15.0)
[2016-12-19 06:22] LABS: ANION GAP 9 mEq/L (8-16); CALCIUM 8.8 mg/dL (8.5-10.4); CARBON DIOXIDE 26 mEq/l (22-31); CHLORIDE 106 mEq/L (97-110); CREATININE 1.1 mg/dL (0.7-1.3); GLOMERULAR FILTRATION RATE > 60; GLUCOSE 99 mg/dL (70-100); POTASSIUM 4.6 mEq/L (3.5-5.2); SODIUM 141 mEq/L (134-144)
[2016-12-19] MEDS: ACYCLOVIR 400 MG TAB PO SCH ×4 (06:55→20:59)
[2016-12-19] MEDS: cefTRIAXone 2 GM in D5W 50 ML IV SCH (08:04)
[2016-12-19] MEDS: ASPIRIN 81 MG CHEWABLE TAB PO SCH (08:05)
[2016-12-19] MEDS: ENOXAPARIN 120 MG/0.8 ML SYR SC SCH (08:05)
[2016-12-19] MEDS: amLODIPine BESYLATE 5 MG TAB PO SCH (08:05)
[2016-12-19] MEDS: WARFARIN SODIUM 5 MG TAB PO SCH (09:23)
--- NOTE | 2016-12-19 11:03 | SOAPPROG ---
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 THIS HAS BEEN ASSOCIATED WITH SEPSIS AND CELLULITIS. IT IS COMPLICATED BY THE FACT THE PATIENT HAS SOME NEUROPATHY IN DIABETES AND APPARENT PERIPHERAL VASCULAR DISEASE. I CANNOT PALPATE THE PEDAL PULSES RISKS AND OPTIONS BEEN FULLY DISCUSSED AND AND HE NEEDS AMPUTATION OF THE 2ND TOE BUT 1ST WE NEED TO STAB WISHES VASCULARITY Plan: NONINVASIVE ARTERIAL STUDIES / PROBABLE LEFT 2ND TOE AMPUTATION IN THE A.M. 12/16/16 19:38 STOP 12/19/16 11:03 afebrile/ wound ok/ no new problems Objective: Vital Signs Temp Pulse Resp BP Pulse Ox 36.8 C 57 L 20 150/68 H 93 12/19/16 07:28 12/19/16 07:28 12/19/16 07:28 12/19/16 07:28 12/19/16 07:28 Laboratory Results 12/18/16 05:09 12/19/16 05:08 12/18/16 12/19/16 12/20/16 05:59 05:59 05:59 Intake Total 1300 760 Output Total 1060 1350 Balance 240 -590 PT 16.5 SEC (12.0-15.0) H 12/19/16 05:08 INR 1.33 (0.83-1.16) H 12/19/16 05:08 ICD10 Worksheet Patient Problems: Problems Problem Status Onset Elevated troponin Acute Palliative care encounter Acute Pulmonary embolus Acute Cervical strain Acute Dehydration Acute Head injury Acute Hypoxemia Acute Nausea, vomiting, and diarrhea Acute Pancreatitis Acute
[2016-12-19] MEDS: ACETAMINOPHEN 500 MG TAB PO PRN (12:08)
--- NOTE | 2016-12-19 16:38 | PCMIDPN ---
Assessment/Plan: # Sepsis, resolved, secondary to GBS L 2nd toe OM and bacteremia # GBS bacteremia, source L 2nd toe OM s/p amputation 12/17/2016. Incision appears healthy, no purulence. Bacteremia cleared 12/14/16. WBC normal, no fever --Planned 2 weeks of IV antibiotics to treat bacteremia now that infected toe resected, 12/28/16 stop date --PICC line placed --L chest wall pain, tenderness, fullness, eval with US # Cassi-oral HSV --continue renal dose acyclovir 400mg QID (vs 5xD) x 5 days Meds Ceftriaxone 2gm IV daily #8 Microbiology 12/12/16 blood cultures 2 sets: Strep Agalactiae Group B 12/14/16 Blood Culture - 2 sets NGTD 12/15/16 wound cx: GBS Coordination of care with Dr. Dietrich and Dr. Chu Subjective: c/o Left lateral chest wall pain that is new PICC line place Objective: Vital Signs Temp Pulse Resp BP Pulse Ox 36.8 C 66 17 127/77 H 94 12/19/16 11:47 12/19/16 11:47 12/19/16 11:47 12/19/16 11:47 12/19/16 11:47 Laboratory Results 12/18/16 05:09 12/19/16 05:08 12/18/16 12/19/16 12/20/16 05:59 05:59 05:59 Intake Total 1300 760 Output Total 1060 1350 790 Balance 240 -590 -790 - Physical Exam General Appearance: alert, no apparent distress EENT: No scleral icterus Respiratory: lungs clear Neck: supple Cardiac/Chest: irregularly irregular, other (Left upper and lateral chest wall fullness, nodularity associated with tenderness. No surrounding erythema) Extremities: other (dependent ruber, 2nd toe incision with stitches in place, no purulence or erythema, mild tenderness to palpation of the adjacent dorsal foot), No pedal edema Skin: No rash Neuro/Psych: alert, normal mood/affect, oriented x 3 - Line/s RUE PICC Lines: other (There was some bleeding around the PICC line dressing, nursing was in the process of changing), No drainage, No erythema - Time Spent With Patient Time Spent with Patient: greater than 35 minutes Time Spent with Patient: Greater than 35 minutes spent on this patients care, greater than 50% of time spent counseling, educating, and coordinating care regarding the above mentioned plan. ICD10 Worksheet Patient Problems: Problems Problem Status Onset Elevated troponin Acute Palliative care encounter Acute Pulmonary embolus Acute Cervical strain Acute Dehydration Acute Head injury Acute Hypoxemia Acute Nausea, vomiting, and diarrhea Acute Pancreatitis Acute
--- NOTE | 2016-12-19 16:47 | HOSPPROG ---
Hospitalist Progress Note Assessment/Plan: Assessment: 81-year-old male presents with severe sepsis in the setting of group B strep bacteremia Plan: 1. Severe sepsis. Evidenced by sepsis-2 criteria/ics-2 definition, including fever (39.1 degree C), tachypnea (respiratory rate 36), leukocytosis (white blood cell count 13,100), clear source of infection including group B strep bacteremia, evidence of end-organ failure notably transient myocardial ischemia , acute kidney injury -status post IV fluids and empiric IV antibiotics -continue to monitor white blood cell count -getting L chest US to r/o harbored infxn 2. Osteomyelitis. Left 2nd toe, amputation performed by Dr. Dietrich for source control -will initiate low-dose gabapentin 3. Group B strep bacteremia. Most likely source is skin wounds -will require PICC line and home IV antibiotics, halfway facility encouraged given patient's limitations with self-care -continue ceftriaxone, stop date 12/28/16 -appreciate Infectious Disease assistance 4. Peripheral vascular disease. Chronic, severe, resulting in left leg claudication and resultant osteomyelitis with chronic wounds and neuropathy -99% left internal iliac, 70% external iliac per CT angiogram 1 year ago -Dr. Srinivasan recommends stenting once the patient's infection has been properly treated 5. Abdominal aortic aneurysm. 5.2 cm, endovascular stent recommended by Dr. Srinivasan , plan to perform once patient's above infection has been adequately treated 6. Acute encephalopathy. Evidenced by global brain dysfunction characterized as alteration in mentation, acute change from baseline, most likely secondary to the metabolic effects of acute kidney injury and toxic effects of infection -appreciate [facility] cog eval 7. Chronic pulmonary embolism/deep venous thrombosis. POA a comma on Coumadin chronically, held for surgery, re-initiated, monitoring daily INR 8. Transient myocardial ischemia. Secondary to end-organ effect of severe sepsis, stress test recommended to the patient but he has refused -continue aspirin 81 mg 9. Diabetes mellitus type 2. Continue insulin 10. Atrial fibrillation. Paroxysmal, not currently on leander blocking agents, continue Coumadin 11. Hypertension. 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 Diabetic Prophylaxis. High risk patient, currently on Coumadin, currently bridging with Lovenox Code. Full Disposition. Anticipated discharge is 12/20, pending stabilization of the issues as outlined above Subjective: Patient counseled regarding the need for IV antibiotics, counseled regarding the need for halfway facility for assistance in the immediate future, counseled regarding neuro modulating agents for pain control Objective: Vital Signs Temp Pulse Resp BP Pulse Ox 36.8 C 66 17 127/77 H 94 12/19/16 11:47 12/19/16 11:47 12/19/16 11:47 12/19/16 11:47 12/19/16 11:47 Laboratory Results 12/18/16 05:09 12/19/16 05:08 12/18/16 12/19/16 12/20/16 05:59 05:59 05:59 Intake Total 1300 760 Output Total 1060 1350 790 Balance 240 -590 -790 PT 16.5 SEC (12.0-15.0) H 12/19/16 05:08 INR 1.33 (0.83-1.16) H 12/19/16 05:08 - Time Spent With Patient Time Spent with Patient: greater than 35 minutes Time Spent with Patient: Greater than 35 minutes spent on this patients care, greater than 50% of time spent counseling, educating, and coordinating care regarding the above mentioned plan. - Physical Exam Constitutional: chronically ill appearing, obese Skin: other (Discoloration of bilateral feet) Musculoskeletal: other (Full range of motion of the left ankle without any pain) Neurologic: AAOx3, sensation intact bilaterally (Paresthesias in the distal toes bilaterally) Psychiatric: interacting appropriately, not anxious, not encephalopathic, thought process linear ICD10 Worksheet Patient Problems: Problems Problem Status Onset Nausea, vomiting, and diarrhea Acute Pancreatitis Acute Dehydration Acute Hypoxemia Acute Head injury Acute Cervical strain Acute Pulmonary embolus Acute Elevated troponin Acute Palliative care encounter Acute
--- NOTE | 2016-12-19 20:48 | SOAPPROG ---
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 THIS HAS BEEN ASSOCIATED WITH SEPSIS AND CELLULITIS. IT IS COMPLICATED BY THE FACT THE PATIENT HAS SOME NEUROPATHY IN DIABETES AND APPARENT PERIPHERAL VASCULAR DISEASE. I CANNOT PALPATE THE PEDAL PULSES RISKS AND OPTIONS BEEN FULLY DISCUSSED AND AND HE NEEDS AMPUTATION OF THE 2ND TOE BUT 1ST WE NEED TO STAB WISHES VASCULARITY Plan: NONINVASIVE ARTERIAL STUDIES / PROBABLE LEFT 2ND TOE AMPUTATION IN THE A.M. 12/16/16 19:38 STOP 12/19/16 11:03 afebrile/ wound ok/ no new problems 12/19/16 20:46 HIS TO SEE PATIENT AGAIN TODAY FOR POSSIBLE LESION IN HIS LEFT LOWER AXILLA HE COMPLAINS OF SOME TENDERNESS IN THAT AREA / AFEBRILE/ ULTRASOUND SUGGESTING HEMATOMA OPPOSED TO AN ABSCESS / I PLAN TO OBSERVE THIS AREA / CONSIDER I AND D OF A BECOMES MORE PROMINENT ARE MORE PAINFUL Objective: Vital Signs Temp Pulse Resp BP Pulse Ox 36.4 C 66 17 140/69 H 94 12/19/16 20:00 12/19/16 20:00 12/19/16 20:00 12/19/16 20:00 12/19/16 20:00 Microbiology 12/14/16 11:03 Blood Culture - Final Blood 12/14/16 11:12 Blood Culture - Final Blood Laboratory Results 12/18/16 05:09 12/19/16 05:08 12/18/16 12/19/16 12/20/16 05:59 05:59 05:59 Intake Total 1300 760 660 Output Total 1060 1350 1040 Balance 240 -590 -380 PT 16.5 SEC (12.0-15.0) H 12/19/16 05:08 INR 1.33 (0.83-1.16) H 12/19/16 05:08 ICD10 Worksheet Patient Problems: Problems Problem Status Onset Elevated troponin Acute Palliative care encounter Acute Pulmonary embolus Acute Cervical strain Acute Dehydration Acute Head injury Acute Hypoxemia Acute Nausea, vomiting, and diarrhea Acute Pancreatitis Acute
[2016-12-19] MEDS: LISINOPRIL 20 MG TAB PO SCH (20:59)
[2016-12-19] MEDS: GABAPENTIN 100 MG CAP PO SCH (21:00)
[2016-12-20] MEDS: ACYCLOVIR 400 MG TAB PO SCH ×4 (05:56→20:35)
[2016-12-20 06:22] LABS: % IMMATURE GRANULYOCYTES 1.3 % (0.0-1.1); ABSOLUTE IMMATURE GRANULOCYTES 0.08 10^3/uL (0.00-0.10); ADD DIFF? NO; ADD MORPH? NO; ADD SCAN? NO; ATYPICAL LYMPHOCYTE FLAG 60 (0-99); FRAGMENT RBC FLAG 0 (0-99); HEMATOCRIT 41.2 % (40.0-51.0); HEMOGLOBIN 12.9 g/dL (13.7-17.5); LEFT SHIFT FLG 10 (0-99); LIPEMIA HEMOLYSIS FLAG 80 (0-99); MEAN CELL HEMOGLOBIN 27.7 pg (27.9-34.1); MEAN CELL HEMOGLOBIN CONCENTR. 31.3 g/dL (32.4-36.7); MEAN CELL VOLUME 88.4 fL (81.5-99.8); MEAN PLATELET VOLUME 10.5 fL (8.7-11.7); PLATELET CLUMPS FLAG 0 (0-99); PLATELET COUNT 149 10^3/uL (150-400); RED BLOOD CELL COUNT 4.66 10^6/uL (4.40-6.38); RED CELL DISTRIBUTION WIDTH 15.9 % (11.5-15.2)
[2016-12-20 06:27] LABS: INR 1.32 (0.83-1.16); PROTIME(PATIENT) 16.4 SEC (12.0-15.0)
[2016-12-20 07:22] LABS: ANION GAP 10 mEq/L (8-16); CALCIUM 8.7 mg/dL (8.5-10.4); CARBON DIOXIDE 26 mEq/l (22-31); CHLORIDE 106 mEq/L (97-110); GLOMERULAR FILTRATION RATE > 60; GLUCOSE 98 mg/dL (70-100); POTASSIUM 4.6 mEq/L (3.5-5.2); SODIUM 142 mEq/L (134-144)
--- NOTE | 2016-12-20 09:23 | PCMIDPN ---
Assessment/Plan: 1. Group B strep bacteremia secondary to infected/osteomyelitic left 2nd toe status post amputation on December 17: Patient is doing very well. Will likely go to [facility] today. Antibiotic plans have been elucidated by my partner, Dr. Andrade. He has follow-up in our clinic. Continue ceftriaxone as is through December 28. No new recommendations. Cultures have sterilized appropriately. 2. 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 Subjective: In good spirits. Loquacious. No diarrhea. Was told he was going to have surgery today for unclear reasons, and is frustrated about lack of communication. Ultrasound yesterday showed hematoma in the left pectoral area. Still having pain in this area, but otherwise no new complaints. Objective: Ceftriaxone 2 g IV daily day 9 Acyclovir 400 mg p.o. four times daily Afebrile Vital Signs Temp Pulse Resp BP Pulse Ox 36.4 C 70 19 149/71 H 90 L 12/20/16 07:38 12/20/16 07:38 12/20/16 07:38 12/20/16 07:38 12/20/16 07:38 Microbiology 12/14/16 11:03 Blood Culture - Final Blood 12/14/16 11:12 Blood Culture - Final Blood Laboratory Results 12/20/16 06:00 12/20/16 06:00 12/19/16 12/20/16 12/21/16 05:59 05:59 05:59 Intake Total 760 810 Output Total 1350 1240 Balance -590 -430 Blood cultures have sterilized - Physical Exam General Appearance: alert, no apparent distress EENT: other (Crusted vesicular lesions vermilion border of lower lip. No evidence of secondary infection) Respiratory: lungs clear Cardiac/Chest: regular rate, rhythm, other (Visible hematoma left pectoral area/ axilla. Tender.) Extremities: other (PICC line right upper extremity. Dressing is saturated with blood. Amputation site left foot is clean and dry with no surrounding cellulitis drainage or purulence.) Abdomen: soft, distended Skin: other (Hematoma as outlined.) ICD10 Worksheet Patient Problems: Problems Problem Status Onset Elevated troponin Acute Palliative care encounter Acute Pulmonary embolus Acute Cervical strain Acute Dehydration Acute Head injury Acute Hypoxemia Acute Nausea, vomiting, and diarrhea Acute Pancreatitis Acute
[2016-12-20] MEDS: cefTRIAXone 2 GM in D5W 50 ML IV SCH (09:35)
[2016-12-20] MEDS: amLODIPine BESYLATE 5 MG TAB PO SCH (09:36)
[2016-12-20] MEDS: ASPIRIN 81 MG CHEWABLE TAB PO SCH (09:36)
[2016-12-20] MEDS: GABAPENTIN 100 MG CAP PO SCH ×3 (09:36→20:37)
--- NOTE | 2016-12-20 16:34 | HOSPPROG ---
Hospitalist Progress Note Assessment/Plan: INTERVAL SUMMARY & DAILY PROGRESS NOTE DATE OF ADMISSION: 12/12/2016 INTERVAL DIAGNOSES 1. Severe sepsis 2. Left toe osteomyelitis 3. Group B strep bacteremia 4. Chronic peripheral vascular disease 5. Abdominal aortic aneurysm 6. Acute encephalopathy 7. Hx of pulmonary embolism/deep venous thrombosis, POA 8. Perioral HSV 9. Paroxysmal atrial fibrillation 10. Chronic hypertension 11. Chest wall hematoma CONSULTATIONS General surgery by Dr. Dietrich, infectious Disease, Interventional Radiology PROCEDURES / IMAGING 12/17 left 2nd digit amputation CHIEF COMPLAINT Acute foot pain SUBJECTIVE Patient reports left dorsal foot pain HOSPITAL COURSE BY PROBLEM Assessment: 81-year-old male presents with severe sepsis in the setting of group B strep bacteremia Plan: 1. Severe sepsis. Resolved 2. Osteomyelitis. Left 2nd toe, amputation performed by Dr. Dietrich for source control -cont on low-dose gabapentin, has pain on dorsum of left foot which could be tissue damage + neuropathic -Dr. Dietrich suspects that the area has a chance of healing given his ABIs 3. Group B strep bacteremia. Most likely source is skin wounds -will require PICC line and home IV antibiotics, continue ceftriaxone, stop date 12/28/16 4. Peripheral vascular disease. Chronic, severe, resulting in left leg claudication and resultant osteomyelitis with chronic wounds and neuropathy -99% left internal iliac, 70% external iliac per CT angiogram 1 year ago -Dr. Srinivasan recommends stenting once the patient's infection has been properly treated, patient should f/u in 1 month -cont on coumadin to prevent worsening 5. Abdominal aortic aneurysm. 5.2 cm, endovascular stent recommended by Dr. Srinivasan , plan to perform once patient's above infection has been adequately treated, f/ u in 1 month 6. Acute encephalopathy. Resolved 7. Hx pulmonary embolism/deep venous thrombosis. POA, occurred 2 years ago, unclear whether he requires ongoing anticoagulation, although he is on Coumadin for severe PVD 8. Transient myocardial ischemia. Secondary to end-organ effect of severe sepsis, stress test recommended to the patient but he has refused -continue aspirin 81 mg 9. Diabetes mellitus type 2. Continue insulin 10. Atrial fibrillation. Paroxysmal, not currently on leander blocking agents, continue Coumadin 11. Hypertension. Chronic, continue amlodipine and lisinopril 12. Cassi-oral HSV. Renally dosed acyclovir 13. Chest wall hematoma. Left, US confirmed no abscess, no surg per Dr. Dietrich, improving -stopped lovenox bridge -allowing INR to rise w/ coumadin only Diet. Diabetic Prophylaxis. High risk patient, currently on Coumadin Code. Full Disposition. Anticipated discharge is 12/21, pending stabilization of the issues as outlined above, to SNF ([facility]) Subjective: Patient would like to discuss his [facility] facility options, he is amenable to continuing gabapentin, now understands why surgical options were considered for left chest wall hematoma and why he is not receiving surgery for this at this time Objective: Vital Signs Temp Pulse Resp BP Pulse Ox 36.7 C 77 14 129/51 H 93 12/20/16 15:24 12/20/16 15:24 12/20/16 15:24 12/20/16 15:24 12/20/16 15:24 Microbiology 12/14/16 11:03 Blood Culture - Final Blood 12/14/16 11:12 Blood Culture - Final Blood Laboratory Results 12/20/16 06:00 12/20/16 06:00 12/19/16 12/20/16 12/21/16 05:59 05:59 05:59 Intake Total 760 810 Output Total 1350 1240 125 Balance -590 -430 -125 PT 16.4 SEC (12.0-15.0) H 12/20/16 06:00 INR 1.32 (0.83-1.16) H 12/20/16 06:00 - Physical Exam Constitutional: no apparent distress, not in pain, chronically ill appearing, obese, No uncomfortable Cardiovascular: regular rate and rhythym, no murmur, rub, or gallop, edema ( Trace bilateral lower extremity), other (Reduced pulses bilateral popliteals) Respiratory: no respiratory distress, no rales or rhonchi, clear to auscultation Gastrointestinal: normoactive bowel sounds, soft, non-tender abdomen, no palpable masses Skin: other (Hyperpigmentation bilateral lower extremities) Neurologic: AAOx3 Psychiatric: interacting appropriately, not anxious, not encephalopathic, thought process linear ICD10 Worksheet Patient Problems: Problems Problem Status Onset Elevated troponin Acute Palliative care encounter Acute Pulmonary embolus Acute Cervical strain Acute Dehydration Acute Head injury Acute Hypoxemia Acute Nausea, vomiting, and diarrhea Acute Pancreatitis Acute
[2016-12-20] MEDS: WARFARIN SODIUM 5 MG TAB PO SCH (17:01)
[2016-12-20] MEDS: LISINOPRIL 20 MG TAB PO SCH (20:34)
[2016-12-20] MEDS: CALCIUM CARBONATE 500 MG CHEWABLE TAB PO PRN (20:35)
--- NOTE | 2016-12-20 21:43 | SOAPPROG ---
JALIL Progress Note Assessment/Plan: Assessment: 81 MALE WITH OSTEOMYELITIS OF HIS LEFT 2ND TOE SECONDARY TO A PLANTAR ULCER AT THE TIP. THIS HAS BEEN ASSOCIATED WITH SEPSIS AND CELLULITIS. IT IS COMPLICATED BY THE FACT THE PATIENT HAS SOME NEUROPATHY IN DIABETES AND APPARENT PERIPHERAL VASCULAR DISEASE. I CANNOT PALPATE THE PEDAL PULSES RISKS AND OPTIONS BEEN FULLY DISCUSSED AND AND HE NEEDS AMPUTATION OF THE 2ND TOE BUT 1ST WE NEED TO STAB WISHES VASCULARITY Plan: NONINVASIVE ARTERIAL STUDIES / PROBABLE LEFT 2ND TOE AMPUTATION IN THE A.M. 12/16/16 19:38 STOP 12/19/16 11:03 afebrile/ wound ok/ no new problems 12/19/16 20:46 HIS TO SEE PATIENT AGAIN TODAY FOR POSSIBLE LESION IN HIS LEFT LOWER AXILLA HE COMPLAINS OF SOME TENDERNESS IN THAT AREA / AFEBRILE/ ULTRASOUND SUGGESTING HEMATOMA OPPOSED TO AN ABSCESS / I PLAN TO OBSERVE THIS AREA / CONSIDER I AND D OF A BECOMES MORE PROMINENT ARE MORE PAINFUL 12/20/16 21:42 axillary lesion is ecchymotic today and appears to be a non operative probable / foot wound is healing well / will need endovascular AAA repair and stent graft of his left iliac in 1 month / he also wants his gallbladder removed at that time if possible Objective: Vital Signs Temp Pulse Resp BP Pulse Ox 36.8 C 77 18 146/62 H 93 12/20/16 20:00 12/20/16 20:00 12/20/16 20:00 12/20/16 20:34 12/20/16 20:00 Microbiology 12/14/16 11:03 Blood Culture - Final Blood 12/14/16 11:12 Blood Culture - Final Blood Laboratory Results 12/20/16 06:00 12/20/16 06:00 12/19/16 12/20/16 12/21/16 05:59 05:59 05:59 Intake Total 760 810 520 Output Total 1350 1240 125 Balance -590 -430 395 PT 16.4 SEC (12.0-15.0) H 12/20/16 06:00 INR 1.32 (0.83-1.16) H 12/20/16 06:00 ICD10 Worksheet Patient Problems: Problems Problem Status Onset Elevated troponin Acute Palliative care encounter Acute Pulmonary embolus Acute Cervical strain Acute Dehydration Acute Head injury Acute Hypoxemia Acute Nausea, vomiting, and diarrhea Acute Pancreatitis Acute
[2016-12-21] MEDS: ACYCLOVIR 400 MG TAB PO SCH ×2 (06:16→11:53)
[2016-12-21 06:19] LABS: INR 1.43 (0.83-1.16); PROTIME(PATIENT) 17.4 SEC (12.0-15.0)
[2016-12-21 06:27] LABS: ANION GAP 7 mEq/L (8-16); CALCIUM 8.4 mg/dL (8.5-10.4); CARBON DIOXIDE 27 mEq/l (22-31); CHLORIDE 106 mEq/L (97-110); CREATININE 1.1 mg/dL (0.7-1.3); GLOMERULAR FILTRATION RATE > 60; GLUCOSE 105 mg/dL (70-100); POTASSIUM 4.7 mEq/L (3.5-5.2); SODIUM 140 mEq/L (134-144)
[2016-12-21] MEDS: cefTRIAXone 2 GM in D5W 50 ML IV SCH (10:06)
[2016-12-21] MEDS: GABAPENTIN 100 MG CAP PO SCH (10:06)
[2016-12-21] MEDS: amLODIPine BESYLATE 5 MG TAB PO SCH (10:06)
[2016-12-21] MEDS: ASPIRIN 81 MG CHEWABLE TAB PO SCH (10:07)
[2016-12-21 10:28] VITALS: RESP 18
--- NOTE | 2016-12-21 11:18 | SOAPPROG ---
SOAP Progress Note Assessment/Plan: Assessment: 81yo M s/p L 2nd toe amputation Pain controlled Wound healing well - silvasorb, 4x4 and wrap changed daily Post-op shoe when ambulating Continue IV antibiotics per ID Dispo: to SNF. OK to d/c from surgery perspective. F/u 1-[address] Dietrich for wound check and suture removal. Call our office with any worsening symptoms , questions or concerns. S: foot feels well. Labial HSV is bothering him more than his foot. O: laying in bed, comfortable, NAD labial ulcer No increased WOB LLE warm. Incision CDI without surrounding erythema or e/o infection. sutures intact. No drainage. Objective: Vital Signs Temp Pulse Resp BP Pulse Ox 36.8 C 61 18 134/61 H 93 12/21/16 08:00 12/21/16 08:00 12/21/16 08:00 12/21/16 08:00 12/21/16 08:00 Laboratory Results 12/20/16 06:00 12/21/16 06:00 12/20/16 12/21/16 12/22/16 05:59 05:59 05:59 Intake Total 810 770 Output Total 1240 250 700 Balance -430 520 -700 PT 17.4 SEC (12.0-15.0) H 12/21/16 06:00 INR 1.43 (0.83-1.16) H 12/21/16 06:00 ICD10 Worksheet Patient Problems: Problems Problem Status Onset Elevated troponin Acute Palliative care encounter Acute Pulmonary embolus Acute Cervical strain Acute Dehydration Acute Head injury Acute Hypoxemia Acute Nausea, vomiting, and diarrhea Acute Pancreatitis Acute
[2016-12-21 12:02] VITALS: BP 146/61; PULSE 58; TEMP 98.1; O2SAT 95
--- NOTE | 2016-12-21 13:14 | PDIAF ---
- Diagnosis Diagnosis: GBS bacteremia Code Status: Full Code - Medication Management Discharge Medications: Medications to Continue on Transfer Lisinopril [Zestril 20 mg (*)] 20 mg PO DAILY 08/01/16 [Last Taken 12/12/16] amLODIPine BESYLATE [Norvasc 5 mg (*)] 5 mg PO DAILY #30 tab 08/04/16 [Last Taken 12/12/16] Warfarin Sodium [Coumadin 5MG (*)] 7.5 mg PO SUMOWEFRSA 12/12/16 [Last Taken ] Warfarin Sodium [Coumadin 5MG (*)] 10 mg PO TUTH 12/12/16 [Last Taken 12/10/16] Acyclovir [Zovirax 400 mg (*)] 400 mg PO QID #16 tab 12/21/16 [Last Taken Unknown] Aspirin [Aspirin 81mg (*)] 81 mg PO DAILY #30 tab.chew 12/21/16 [Last Taken Unknown] Gabapentin [Neurontin 100 MG (*)] 100 mg PO TID #90 cap 12/21/16 [Last Taken Unknown] cefTRIAXone [Rocephin] 2 gm IV DAILY #7 vial 12/21/16 [Last Taken Unknown] oxyCODONE/APAP 5/325 [Percocet 5/325 (*)] 1 - 2 tab PO Q6H PRN #30 tab 12/21/16 [Last Taken Unknown] Dude Wrangler Antibiotics: ceftriaxone 2gm IV daily Mcfp Antibiotic Stop Date: 12/28/16 Discharge Medications: Refer to the Discharge Home Medication list for PRN reason. PICC Care - Routine: Yes - Orders Services needed: Registered Nurse, Physical Therapy, Occupational Therapy ( Follow up with Dr. Dietrich in 1-2 weeks. Call for an appointment.) Diet Recommendation: cardiac -low fat low salt, ADA 2000 consistent carb - Labs/Radiology CBC Date: 12/23/16 CMP Date: 12/23/16 Call or Fax Lab and Imaging Results to: [phone] shemar - Follow Up Care Current Providers and Referrals: Refugio Dietrich MD [Medical Doctor] - (pls call for an appt in 2 weeks) Alondra Andrade MD [Medical Doctor] - 12/26/16 2:00 pm Patient,NotPresent [Unknown] - As per Instructions
--- NOTE | 2016-12-21 21:48 | GDS ---
[f rep st] DISCHARGE SUMMARY DISCHARGE DIAGNOSES: 1. Severe sepsis secondary to left toe osteomyelitis. 2. Group B streptococcus bacteremia. 3. Chronic peripheral vascular disease. 4. Abdominal aortic aneurysm. 5. Acute encephalopathy. 6. History of pulmonary embolism and deep vein thrombosis. 7. Perioral herpes simplex virus. 8. Paroxysmal atrial fibrillation. 9. Chronic hypertension. 10. Chest wall hematoma. 11. Right lower lobe pulmonary nodule. CONSULTANTS: 1. Dr. Alondra Andrade of infectious disease. 2. Remedios Collins of palliative care. 3. Dr. Refugio Dietrich of general surgery. IMAGING STUDIES AND PROCEDURES: 1. Head CT on December 12 showed no acute intracranial abnormality. 2. CT angiogram of the chest showed probable chronic partial thrombus of the left upper lobe anteri or segment and possible partial thrombosis of the right upper lobe, with minimal clot burden. Ather osclerotic disease was noted in the coronary arteries and a 6 mm pulmonary nodule in the right lower lobe. 3. Echocardiogram on December 13 showed mild left ventricular hypertrophy, ejection fraction of 65%, grade 2 diastolic dysfunction, a right ventricular systolic pressure of 38, and Doppler evidence of mild pulmonary hypertension. 4. Cervical spine MRI showed no evidence of an epidural abscess, diskitis, or osteomyelitis, but mu ltilevel degenerative disk disease with moderate bilateral neural foraminal narrowing was noted. 5. Foot x-ray on December 14 showed cellulitis without evidence of underlying osteomyelitis. 6. Left foot MRI on December 15 showed finding suggestive of osteomyelitis at the tip of the termina l tuft of the 2nd toe as well as cellulitis, but no evidence for abscess. 7. Arterial studies performed by Dr. Refugio Dietrich on December 17 showed good pulsatile flow to the ank le level bilaterally. His RADHA was 0.67 on the left and 0.8 on the right. It was felt these finding s should support healing of the toe amputation. 8. Left 2nd toe amputation at the metatarsophalangeal level performed on december [address] Refugio lyn. 9. PICC line insertion on December 19, 2016. 10. Chest ultrasound on December 19 showed findings suspicious for a pectoral hematoma while on anticoa gulation. HISTORY: For details, please see the dictated history and physical dated December 13, 2016. In brief, the patient is a 81-year-old male with a history of atrial fibrillation, hypertension, and peripher al vascular disease, who presented to the emergency department with recurrent falls. On the day of admission, he was found down on the ground by a friend. He was admitted to the hospital for further management. HOSPITAL COURSE: The patient was admitted to the PCU. He was noted to be febrile upon arrival to [facility] floor. He developed severe sepsis with an unclear source. And infectious disease consult was ob tained. His blood cultures grew beta strep, and the source was thought to be secondary to his left 2nd toe. This was treated with ceftriaxone 2 g IV daily, and a PICC line was placed with anticipati on of long-term antibiotic needs. Further imaging revealed findings consistent with osteomyelitis, and he ultimately underwent a left 2nd toe amputation, with arterial studies as described above by Angela Dietrich suggesting optimism that this will heal post amputation. He was anticoagulated with Coumad in for his atrial fibrillation, though he developed a chest wall hematoma while bridging Coumadin wi Lovenox. The Lovenox was then discontinued, and he was continued on Coumadin alone, allowing his INR to rise without bridging therapy. Regarding his peripheral vascular disease, this was noted to be chronic and severe with left leg cla udication and osteomyelitis as described above, with chronic wounds and neuropathy. Per review of [facility] CT angiogram 1 year ago, he had 99% left internal iliac and 70% external iliac stenosis. The ambrose e was discussed with Dr. Debbie Srinivasan of interventional radiology who recommends stenting once the patien t's infection has resolved, and he should follow up closely with Dr. Refugio Dietrich of vascular surge ry. In the meantime, he will continue on Coumadin to prevent worsening. Furthermore, he was noted to have an abdominal aortic aneurysm measuring 5.2 cm, and an endovascular stent is recommended for this as well, but again, this can be pursued once the above infection has been adequately treated, a nd he should follow up in a month to address both of these issues. The perioral HSV was treated with a 7-day course of acyclovir. DISPOSITION: The patient is discharged to a custodial facility in stable condition. DISCHARGE MEDICATIONS: Please see [facility] for the complete updated outpatient medication list. New medications on discharge include: 1. Acyclovir 400 mg p.o. q.i.d., #16, no refills. 2. Aspirin 81 mg p.o. daily, #30, no refills. 3. Ceftriaxone 2 g IV daily for 7 more days, with a stop date of December 28, 2016. 4. Gabapentin 100 mg p.o. t.i.d. 5. Percocet 5/325, 1-2 p.o. q.6 hours p.r.n., #30, no refills. We will continue all other medications as prescribed including lisinopril, amlodipine, and Coumadin. DISCHARGE INSTRUCTIONS: Wound care instructions were provided on his discharge paperwork. FOLLOWUP: 1. Dr. Refugio Dietrich of vascular surgery in 1 month for followup on his left toe amputation, severe peripheral vascular disease with claudication, and abdominal aortic aneurysm. 2. Dr. Alondra Andrade on December 26, 2016, at 2:00 p.m. 3. He will need a followup INR on December 23 in addition to his CBC and CMP. INR results to the aggie JONES at the custodial [facility], and CBC and CMP results to Dr. Andrade. /[id number]/MODL
== END 2016-12-21 14:22 | DRG 853 ==
LOC: EDAGE → EDUNIT# → F2W 22:53
PROVIDERS: ADMIT Internal Medicine; ATTEND Internal Medicine
PROC: 30233L1 Transfusion of Nonautologous Fresh Plasma into Peripheral Vein, Percutaneous Approach (ICD-10-PCS; 2016-12-12)
PROC: 0Y6S0Z0 Detachment at Left 2nd Toe, Complete, Open Approach (ICD-10-PCS; principal; 2016-12-17 16:15)
PROC: 02HV33Z Insertion of Infusion Device into Superior Vena Cava, Percutaneous Approach (ICD-10-PCS; 2016-12-19)
DX: A40.1 Sepsis due to streptococcus, group B (principal); G93.49 Other encephalopathy; E11.69 Type 2 diabetes mellitus with other specified complication; M86.172 Other acute osteomyelitis, left ankle and foot; I71.4 Abdominal aortic aneurysm, without rupture; L03.032 Cellulitis of left toe; B00.1 Herpesviral vesicular dermatitis; I48.0 Paroxysmal atrial fibrillation; I10 Essential (primary) hypertension; R91.1 Solitary pulmonary nodule; R65.20 Severe sepsis without septic shock; E11.51 Type 2 diabetes mellitus with diabetic peripheral angiopathy without gangrene; E11.621 Type 2 diabetes mellitus with foot ulcer; M79.81 Nontraumatic hematoma of soft tissue; Z87.891 Personal history of nicotine dependence; Z86.711 Personal history of pulmonary embolism; Z86.718 Personal history of other venous thrombosis and embolism; Z79.01 Long term (current) use of anticoagulants
CPT/HCPCS: 92507-GN; 92523-GN; 97116-GP; 97161-GP; 97165-GO; 97530-GO; 97535-GO; A9585; C1751; G8978-GP-CJ; G8979-GP-CI; G8987-GO-CJ; G8988-GO-CI; G9168-GN-CL; G9169-GN-CJ; G9170-GN-CL; J0696; J1100; J1650; J2060; J2250; J2704; J2765; J3010; J3370; Q9967

== ENCOUNTER 2017-01-23 11:33 | Observation (INO) | payer OTHER ==
[2017-01-23 11:51] VITALS: RESP 18
--- NOTE | 2017-01-23 12:42 | EDPHY ---
H & P Time Seen by Provider: 01/23/17 11:44 HPI/ROS: CHIEF COMPLAINT: Vertigo, nausea HISTORY OF PRESENT ILLNESS: Patient is a 81-year-old male with multiple medical problems who presents emergency department with multiple complaints including vertigo, nausea and loss of coordination. Patient states that at 9: 00 a.m. he developed chills and some dizziness. He had difficulty walking to the bathroom because he felt off balance. He states he has the same symptoms that he recently had when he became septic from a toe infection. He ultimately had his left second toe removed on his previous admission by Dr. Dietrich. He states that his symptoms may have started yesterday. He was cleaning his house and dropped a sharp object on his left great toe. Today he noticed increased redness and swelling at his left great toe. He denies vomiting. No chest pain, shortness of breath, new cough, abdominal pain or dysuria. REVIEW OF SYSTEMS: My complete review of systems is negative except as mentioned in the HPI. Past Medical/Surgical History: Includes sepsis secondary to osteomyelitis, peripheral vascular disease, abdominal aortic aneurysm, acute encephalopathy, pulmonary embolus, herpes simplex, paroxysmal atrial fibrillation, hypertension, pulmonary nodules, diabetes type 2 Past surgical history: Includes Left 2nd toe amputation Social history: The patient has a remote smoking history Smoking Status: Former smoker Physical Exam: Vitals noted GENERAL: Well-appearing, in no acute distress, alert. HEENT: Eyes normal to inspection, normal pharynx, no signs of dehydration. NECK: No thyromegaly, no lymphadenopathy, supple. RESPIRATORY: Minimal scattered wheezing, no rales, rhonchi. CVS: Regular rate and rhythm, no rubs, murmurs, or gallops. ABDOMEN: Soft, nontender, nondistended, no organomegaly. BACK: Normal to inspection, no CVA tenderness. SKIN: Normal color, no rash, warm, dry. No pallor. EXTREMITIES: No pedal edema, no calf tenderness, no Homans sign or cords, no joint swelling. Patient has an amputated left 2nd toe. His left great toe is mildly erythematous with a small abrasion. There is no foot erythema or streaking up the leg. NEURO/PSYCH: Alert and oriented x3, normal mood and affect, normal motor sensory exam. No obvious cranial nerve deficit. Constitutional: Initial Vital Signs Temperature (C) 36.6 C 01/23/17 11:35 Heart Rate 67 01/23/17 11:35 Respiratory Rate 18 01/23/17 11:35 Blood Pressure 158/73 H 01/23/17 11:35 O2 Sat (%) 88 L 01/23/17 11:35 O2 Delivery Mode Nasal Cannula O2 (L/minute) 2 Allergies/Adverse Reactions: Tetracyclines Allergy (Intermediate, Verified 10/23/16 16:29) Vomiting nitrofurantoin [From Macrobid] Allergy (Unknown, Verified 10/23/16 16:29) nitrofurantoin macrocrystalline [From Macrobid] Allergy (Unknown, Verified 10/23 16:29) Penicillins Allergy (Unknown, Verified 10/23/16 16:29) Sulfa (Sulfonamide Antibiotics) Allergy (Unknown, Verified 10/23/16 16:29) Home Medications: Medication Instructions Recorded Lisinopril [Zestril 20 mg (*)] 20 mg PO DAILY 08/01/16 amLODIPine BESYLATE [Norvasc 5 mg 5 mg PO DAILY #30 tab 08/04/16 (*)] Warfarin Sodium [Coumadin 5MG (*)] 7.5 mg PO SUMOWEFRSA 12/12/16 Warfarin Sodium [Coumadin 5MG (*)] 10 mg PO TUTH 12/12/16 Gabapentin [Neurontin 100 MG (*)] 100 mg PO TID #90 cap 12/21/16 Medical Decision Making - Diagnostics Imaging Results: Imaging Impressions Chest X-Ray 01/23/17 11:59 Impression: Suspect early retrocardiac left lower lobe pneumonia.. ED Course/Re-evaluation: In the emergency department I met the patient on arrival. I discussed the plan and possible etiologies. I answered all his questions. IV was placed. Laboratory studies, EKG and chest x-ray were ordered. I rechecked the patient while here. I reviewed his laboratory studies. White count was normal. The patient was not anemic. Platelets are mildly low. Patient's INR is mildly elevated at 2.2. Patient's chemistry panel was unremarkable. The urine was negative. Lactate was 1 The chest x-ray: Please refer the dictated report. The patient has potentially early left lower lobe infiltrate. I discussed the case with Dr. Faulkner from hospitalist service. He will evaluate the patient. Dr. Faulkner was in the emergency department to evaluate the patient. We discussed antibiotic options. He wrote an order for azithromycin and Rocephin. Patient will be admitted for further observation. The patient does not appear septic or toxic. Differential Diagnosis: My differential includes but is not limited to bacteremia, sepsis, cellulitis, toe infection, pneumonia, COPD exacerbation, electrolyte abnormality, sugar abnormality, CVA, dissection, ACS, acute MA - Data Points Laboratory Results: Laboratory Results 01/23/17 12:40 01/23/17 12:40 01/23/17 01/23/17 01/23/17 13:25 12:40 12:40 WBC RBC Hgb Hct MCV MCH MCHC RDW Plt Count MPV Neut % (Auto) Lymph % (Auto) [place] % (Auto) Eos % (Auto) Baso % (Auto) Nucleat RBC Rel Count Absolute Neuts (auto) Absolute Lymphs (auto) Absolute Monos (auto) Absolute Eos (auto) Absolute Basos (auto) Absolute Nucleated RBC Immature Gran % Immature Gran # PT 24.6 SEC H SEC (12.0-15.0) INR 2.20 H (0.83-1.16) APTT 38.9 SEC H SEC (23.0-38.0) VBG Lactic Acid Sodium 140 mEq/L mEq/L (134-144) Potassium 4.9 mEq/L mEq/L (3.5-5.2) Chloride 108 mEq/L mEq/L (97-110) Carbon Dioxide 24 mEq/l mEq/l (22-31) Anion Gap 8 mEq/L mEq/L (8-16) BUN 28 mg/dL H mg/dL (7-23) Creatinine 1.0 mg/dL mg/dL (0.7-1.3) Estimated GFR > 60 Glucose 113 mg/dL H mg/dL (70-100) Calcium 9.1 mg/dL mg/dL (8.5-10.4) Total Bilirubin 0.8 mg/dL mg/dL (0.1-1.4) Conjugated Bilirubin 0.1 mg/dL mg/dL (0.0-0.5) Unconjugated Bilirubin 0.7 mg/dL mg/dL (0.0-1.1) AST 28 IU/L IU/L (17-59) ALT 23 IU/L IU/L (21-72) Alkaline Phosphatase 82 IU/L IU/L (38-126) Total Protein 7.1 g/dL g/dL (6.3-8.2) Albumin 3.9 g/dL g/dL (3.5-5.0) Urine Color YELLOW Urine Appearance CLEAR Urine pH 7.0 (5.0-7.5) Ur Specific [place] 1.018 (1.002-1.030) Urine Protein NEGATIVE (NEGATIVE) Urine Ketones NEGATIVE (NEGATIVE) Urine Blood NEGATIVE (NEGATIVE) Urine Nitrate NEGATIVE (NEGATIVE) Urine Bilirubin NEGATIVE (NEGATIVE) Urine Urobilinogen NEGATIVE EU EU (0.2-1.0) Ur Leukocyte Esterase NEGATIVE (NEGATIVE) Urine Glucose NEGATIVE (NEGATIVE) 01/23/17 01/23/17 12:40 12:40 WBC 5.14 10^3/uL 10^3/uL (3.80-9.50) RBC 5.08 10^6/uL 10^6/uL (4.40-6.38) Hgb 14.4 g/dL g/dL (13.7-17.5) Hct 45.6 % % (40.0-51.0) MCV 89.8 fL fL (81.5-99.8) MCH 28.3 pg pg (27.9-34.1) MCHC 31.6 g/dL L g/dL (32.4-36.7) RDW 15.9 % H % (11.5-15.2) Plt Count 119 10^3/uL L 10^3/uL (150-400) MPV 10.8 fL fL (8.7-11.7) Neut % (Auto) 83.4 % H % (39.3-74.2) Lymph % (Auto) 10.5 % L % (15.0-45.0) [place] % (Auto) 4.3 % L % (4.5-13.0) Eos % (Auto) 1.2 % % (0.6-7.6) Baso % (Auto) 0.4 % % (0.3-1.7) Nucleat RBC Rel Count 0.0 % % (0.0-0.2) Absolute Neuts (auto) 4.29 10^3/uL 10^3/uL (1.70-6.50) Absolute Lymphs (auto) 0.54 10^3/uL L 10^3/uL (1.00-3.00) Absolute Monos (auto) 0.22 10^3/uL L 10^3/uL (0.30-0.80) Absolute Eos (auto) 0.06 10^3/uL 10^3/uL (0.03-0.40) Absolute Basos (auto) 0.02 10^3/uL 10^3/uL (0.02-0.10) Absolute Nucleated RBC 0.00 10^3/uL 10^3/uL (0-0.01) Immature Gran % 0.2 % % (0.0-1.1) Immature Gran # 0.01 10^3/uL 10^3/uL (0.00-0.10) PT INR APTT VBG Lactic Acid 1.0 mmol/L mmol/L (0.7-2.1) Sodium Potassium Chloride Carbon Dioxide Anion Gap BUN Creatinine Estimated GFR Glucose Calcium Total Bilirubin Conjugated Bilirubin Unconjugated Bilirubin AST ALT Alkaline Phosphatase Total Protein Albumin Urine Color Urine Appearance Urine pH Ur Specific [place] Urine Protein Urine Ketones Urine Blood Urine Nitrate Urine Bilirubin Urine Urobilinogen Ur Leukocyte Esterase Urine Glucose Departure - Departure Disposition: [facility] Inpatient Acute Clinical Impression: Toe infection Pneumonia Qualifiers: Pneumonia type: due to unspecified organism Laterality: left Lung location: lower lobe of lung Qualified Code(s): J18.1 - Lobar pneumonia, unspecified organism Condition: Good
[2017-01-23 12:53] LABS: % IMMATURE GRANULYOCYTES 0.2 % (0.0-1.1); ABSOLUTE IMMATURE GRANULOCYTES 0.01 10^3/uL (0.00-0.10); ADD DIFF? NO; ADD MORPH? NO; ADD SCAN? NO; ATYPICAL LYMPHOCYTE FLAG 0 (0-99); FRAGMENT RBC FLAG 0 (0-99); HEMATOCRIT 45.6 % (40.0-51.0); HEMOGLOBIN 14.4 g/dL (13.7-17.5); LEFT SHIFT FLG 0 (0-99); LIPEMIA HEMOLYSIS FLAG 80 (0-99); MEAN CELL HEMOGLOBIN 28.3 pg (27.9-34.1); MEAN CELL HEMOGLOBIN CONCENTR. 31.6 g/dL (32.4-36.7); MEAN CELL VOLUME 89.8 fL (81.5-99.8); MEAN PLATELET VOLUME 10.8 fL (8.7-11.7); PLATELET CLUMPS FLAG 0 (0-99); PLATELET COUNT 119 10^3/uL (150-400); RED BLOOD CELL COUNT 5.08 10^6/uL (4.40-6.38); RED CELL DISTRIBUTION WIDTH 15.9 % (11.5-15.2)
[2017-01-23 13:04] LABS: INR 2.2 (0.83-1.16); PROTIME(PATIENT) 24.6 SEC (12.0-15.0)
[2017-01-23 13:05] LABS: APTT 38.9 SEC (23.0-38.0)
[2017-01-23 13:48] LABS: COLOR YELLOW; LEUKOCYTE ESTERASE,URINE NEGATIVE (NEGATIVE); NITRITE,URINE NEGATIVE (NEGATIVE)
[2017-01-23 14:00] LABS: ALANINE AMINOTRANSFERASE 23 IU/L (21-72); ALBUMIN 3.9 g/dL (3.5-5.0); ALKALINE PHOSPHATASE 82 IU/L (38-126); ANION GAP 8 mEq/L (8-16); ASPARTATE AMINOTRANSFERASE 28 IU/L (17-59); BILIRUBIN,TOTAL 0.8 mg/dL (0.1-1.4); BILIRUBIN-CONJUGATED 0.1 mg/dL (0.0-0.5); BILIRUBIN-UNCONJUGATED 0.7 mg/dL (0.0-1.1); CALCIUM 9.1 mg/dL (8.5-10.4); CARBON DIOXIDE 24 mEq/l (22-31); CHLORIDE 108 mEq/L (97-110); GLOMERULAR FILTRATION RATE > 60; GLUCOSE 113 mg/dL (70-100); POTASSIUM 4.9 mEq/L (3.5-5.2); SODIUM 140 mEq/L (134-144); TOTAL PROTEIN 7.1 g/dL (6.3-8.2)
[2017-01-23] MEDS ORDERED: CEFTRIAXONE 1 GM/DEXTROSE/50 ML BAG IV ONE (14:23)
[2017-01-23] MEDS ORDERED: ONDANSETRON DISINTEGRATING 4 MG TAB PO PRN (14:35)
[2017-01-23] MEDS ORDERED: ONDANSETRON 4 MG/2 ML VIAL IVP PRN (14:35)
[2017-01-23] MEDS ORDERED: oxyCODONE IR 5 MG TAB PO PRN (14:35)
[2017-01-23] MEDS ORDERED: NS 1,000 ML IV ONE (14:35)
[2017-01-23] MEDS ORDERED: PROMETHAZINE HCL 25 MG/ML INJ IVP PRN (14:46)
[2017-01-23] MEDS ORDERED: MECLIZINE HCL 25 MG TAB PO PRN (14:47)
--- NOTE | 2017-01-23 15:56 | GHP ---
[f rep st] HISTORY AND PHYSICAL DATE OF ADMISSION: 01/23/2017 CHIEF COMPLAINT: Dizziness. HISTORY OF PRESENT ILLNESS: This is a 81-year-old man with a recent history of sepsis secondary to toe osteomyelitis, status post amputation, who presents with dizziness. He says that this is exactl y how he felt when he presented on his last admission with sepsis. It started this morning, describ ed as "vertigo." It seems like it is worse when he moves his head, although when he got up to ambul ate this morning he felt quite off balance, like he was going to fall. He did not actually fall or hit his head. He also felt as though he had some chills this morning. He notes that he dropped a p rotractor yesterday on his left great toe and he feels as though it is somewhat swollen today. He h as a history of peripheral vascular disease. On his last admission, he had group B strep bacteremia, as well as group B strep from wound culture on his 2nd toe. He was treated with Rocephin, although he has an allergy to penicillins. He is sup posed to follow up with Dr. Dietrich in a few days. He denies having any cough, shortness of breath. PAST MEDICAL/SURGICAL HISTORY: 1. Sepsis secondary to toe osteomyelitis, as above. 2. Group B strep bacteremia, as above. 3. Peripheral vascular disease. 4. Abdominal aortic aneurysm. 5. 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 6. Herpes simplex virus oralis. 7. Hypertension. 8. Type 2 diabetes. 9. Atrial fibrillation. MEDICATIONS: Please see medication reconciliation. ALLERGIES: Tetracycline, Macrobid, penicillin, sulfa. FAMILY HISTORY: Parents are . His mother had a stroke. SOCIAL HISTORY: He lives alone. He quit smoking in the . He lives in low-income housing. He does not have any family around. REVIEW OF SYSTEMS: 10-point review of systems is conducted and is negative except per HPI. PHYSICAL EXAMINATION: VITAL SIGNS: Blood pressure was initially 158/73, now 185/98, heart rate 65, respiration rate 18, satting initially 88% on room air. Temperature is 36.6. 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 HEENT: Shows him to be normocephalic, atraumatic. CARDIOVASCULAR: Regular rate a nd rhythm. There are no murmurs, rubs, or gallops. PULMONARY: Shows him to have mild diffuse expi ratory wheezes. I do not appreciate any rales. ABDOMEN: Soft, nontender, nondistended. SKIN: Sh ows no rash. : Shows no Le. NEUROLOGIC: Shows him to be alert and oriented x3. Cranial ner ves 2-12 are intact. Motor is intact in the upper and lower extremities. He has subjective decreas e to light touch in his right lower extremity, which seems to be somewhat chronic. PSYCHIATRIC: Sh ows a normal mood and affect. EXTREMITIES: Shows his left lower extremity to have 2nd great toe am putated. Surgical wound is clean, dry and intact. His right great toe has a mild abrasion on it. It is mildly edematous, but not erythematous or warm. LABORATORY DATA: CBC shows platelets of a 119, white count is 5. INR is 2.2. Lactate is 1.0. Bas ic metabolic panel is normal. LFTs are normal. Urinalysis is negative. DATA: 1. I discussed this with Dr. Sosa. Will admit to med/surg. 2. I personally viewed and interpreted his chest x-ray. It shows a very faint left lower lobe infi ltrate. 3. I reviewed his chart. IMPRESSION AND PLAN: A 81-year-old man presenting with symptoms consistent with his previous presen tation of sepsis. 1. Dizziness/vertigo: He is feeling somewhat better after he received Zofran in the ambulance. Co ncerning that this is how he felt on his last presentation. He does have a faint infiltrate seen by Radiology on his chest x-ray. He does not meet sepsis criteria. Given that he is anticoagulated, we will get a CT scan of his head. Otherwise, we will treat him symptomatically with antiemetics, g wayne him a small fluid bolus, have him work with PT and OT. I will give him some meclizine as well. 2. Faint infiltrate seen on chest x-ray: Does not have any symptoms consistent with pneumonia. I will empirically treat him given his more systemic symptoms. We will check a procalcitonin to help further evaluate whether this is a true pneumonia or not. I started him on Rocephin and azithromyci n. 3. Left great toe edema: Does not appear infected to me. Second toe amputation appears to be heal ing well. I have asked Dr. Dietrich to see him as he is due for a postop visit anyway. 4. Peripheral vascular disease: Certainly puts him at risk for extremity infections. 5. Diabetes mellitus type 2: We will reconcile his medications when they are completed, though I d o not see any anti-hyperglycemics on there right now. 6. History of PE/DVT: Continue his warfarin. He is therapeutic. Follow this while on azithromyci n. 7. Hypertension: He is quite uncontrolled now. We will make sure that he gets his home medication s and follow his blood pressure. DISPOSITION: Will admit him to observation. If above workup is rather unrevealing, cultures remain negative, and he feels better, can likely be discharged tomorrow. /[id number]/MODL
[2017-01-23] MEDS ORDERED: AZITHROMYCIN IV 500 MG in D5W 250 ML IV SCH (16:30)
[2017-01-23] MEDS ORDERED: WARFARIN SODIUM 5 MG TAB PO SCH (18:00)
--- NOTE | 2017-01-23 18:35 | SOAPPROG ---
SOAP Progress Note Assessment/Plan: Assessment: 81yo male, recent toe amputation, admitted for dizziness/vertigo, R/O sepsis PE Left foot amputation site without signs of infection or breakdown, foot warm to touch Plan: seen and examined by Dr Dietrich no concerns re foot at this time pt should F/U in our office --- needs F/U for other issues 01/23/17 18:33 Objective: Vital Signs Temp Pulse Resp BP Pulse Ox 36.7 C 65 18 136/90 H 94 01/23/17 17:29 01/23/17 17:29 01/23/17 17:29 01/23/17 17:45 01/23/17 17:29 01/22/17 01/23/17 01/24/17 05:59 05:59 05:59 Intake Total 1050 Balance 1050 PT 24.6 SEC (12.0-15.0) H 01/23/17 12:40 INR 2.20 (0.83-1.16) H 01/23/17 12:40 ICD10 Worksheet Patient Problems: Problems Problem Status Onset Pneumonia Acute Toe infection Acute Cervical strain Acute Dehydration Acute Elevated troponin Acute Head injury Acute Hypoxemia Acute Nausea, vomiting, and diarrhea Acute Palliative care encounter Acute Pancreatitis Acute Pulmonary embolus Acute
--- NOTE | 2017-01-23 18:47 | SOAPPROG ---
[facility] Progress Note Assessment/Plan: Assessment: LEFT FOOT AMPUTATION SITE IS HEALING WELL WITH NO PARTICULAR PROBLEMS / HOWEVER HE STILL NEEDS LEFT ILIAC ARTERY STENT AND AAA STENT RISKS AND OPTIONS WERE FULLY DISCUSSED WITH THE PATIENT Plan: WILL FOLLOW IS NEEDED 01/23/17 18:47 Objective: Vital Signs Temp Pulse Resp BP Pulse Ox 36.7 C 65 18 136/90 H 94 01/23/17 17:29 01/23/17 17:29 01/23/17 17:29 01/23/17 17:45 01/23/17 17:29 01/22/17 01/23/17 01/24/17 05:59 05:59 05:59 Intake Total 1050 Balance 1050 PT 24.6 SEC (12.0-15.0) H 01/23/17 12:40 INR 2.20 (0.83-1.16) H 01/23/17 12:40 ICD10 Worksheet Patient Problems: Problems Problem Status Onset Pneumonia Acute Toe infection Acute Cervical strain Acute Dehydration Acute Elevated troponin Acute Head injury Acute Hypoxemia Acute Nausea, vomiting, and diarrhea Acute Palliative care encounter Acute Pancreatitis Acute Pulmonary embolus Acute
[2017-01-23] MEDS ORDERED: CALCIUM CARBONATE 500 MG CHEWABLE TAB PO PRN (20:46)
[2017-01-23] MEDS: ACETAMINOPHEN 325 MG TAB PO PRN (21:34)
[2017-01-24 04:57] LABS: % IMMATURE GRANULYOCYTES 0.2 % (0.0-1.1); ABSOLUTE IMMATURE GRANULOCYTES 0.01 10^3/uL (0.00-0.10); ADD DIFF? NO; ADD MORPH? NO; ADD SCAN? NO; ATYPICAL LYMPHOCYTE FLAG 0 (0-99); FRAGMENT RBC FLAG 0 (0-99); HEMATOCRIT 40.6 % (40.0-51.0); HEMOGLOBIN 12.8 g/dL (13.7-17.5); LEFT SHIFT FLG 0 (0-99); LIPEMIA HEMOLYSIS FLAG 80 (0-99); MEAN CELL HEMOGLOBIN 28.6 pg (27.9-34.1); MEAN CELL HEMOGLOBIN CONCENTR. 31.5 g/dL (32.4-36.7); MEAN CELL VOLUME 90.8 fL (81.5-99.8); MEAN PLATELET VOLUME 10.5 fL (8.7-11.7); PLATELET CLUMPS FLAG 0 (0-99); PLATELET COUNT 100 10^3/uL (150-400); RED BLOOD CELL COUNT 4.47 10^6/uL (4.40-6.38); RED CELL DISTRIBUTION WIDTH 16.1 % (11.5-15.2)
[2017-01-24 05:07] LABS: INR 2.47 (0.83-1.16)
[2017-01-24 05:30] LABS: ANION GAP 7 mEq/L (8-16); CALCIUM 8.7 mg/dL (8.5-10.4); CARBON DIOXIDE 24 mEq/l (22-31); CHLORIDE 108 mEq/L (97-110); GLOMERULAR FILTRATION RATE > 60; GLUCOSE 105 mg/dL (70-100); POTASSIUM 4.3 mEq/L (3.5-5.2); SODIUM 139 mEq/L (134-144)
[2017-01-24] MEDS: ACETAMINOPHEN 325 MG TAB PO PRN (08:15)
--- NOTE | 2017-01-24 08:19 | HOSPPROG ---
Hospitalist Progress Note Assessment/Plan: Patient is a 81-year-old male who presented to the emergency room with dizziness. He has a recent history of sepsis secondary to toe osteomyelitis status post amputation. Today is my 1st encounter with the patient. Chart reviewed. * Dizziness/vertigo resolved CT of head stable * infiltrate on the chest x-ray had some symptoms of pneumonia and was treated pro calcitonin level is 0.07 therefore will stop antibiotics lung sounds CTA * left great toe edema status post left foot amputation was seen and evaluated by Dr. Dietrich who is recommending the patient needs of left iliac artery stent and a AAA stent improved * peripheral vascular disease needs LICA stent and AAA stent * diabetes mellitus type 2 * history of PE and DVT on anticoagulation with an INR of 2.47 * hypertension blood pressure is stable *Plan: Adams is very anxious about being dc due to his hx of sepsis. Doesn't want homecare and prefers to return to his own home. Will check on him later today. Hopefully, can dc home later today. Subjective: Adams has no specific complaints but is concerned about being dc. Objective: Vital Signs Temp Pulse Resp BP Pulse Ox 36.5 C 63 18 145/63 H 90 L 01/24/17 07:29 01/24/17 07:29 01/24/17 07:29 01/24/17 07:29 01/24/17 07:29 Laboratory Results 01/24/17 04:20 01/24/17 04:20 01/23/17 01/24/17 01/25/17 05:59 05:59 05:59 Intake Total 1500 Balance 1500 PT 27.0 SEC (12.0-15.0) H 01/24/17 04:20 INR 2.47 (0.83-1.16) H 01/24/17 04:20 - Physical Exam Constitutional: no apparent distress, appears nourished, not in pain Eyes: PERRL Ears, Nose, Mouth, Throat: hearing normal Cardiovascular: regular rate and rhythym Respiratory: no respiratory distress, clear to auscultation Gastrointestinal: normoactive bowel sounds Skin: warm, other (left 2nd toe amputation/ site clear/has chronic lower ext venous stasis) Musculoskeletal: no muscle tenderness Neurologic: AAOx3 Psychiatric: interacting appropriately, anxious ICD10 Worksheet Patient Problems: Problems Problem Status Onset Pneumonia Acute Toe infection Acute Cervical strain Acute Dehydration Acute Elevated troponin Acute Head injury Acute Hypoxemia Acute Nausea, vomiting, and diarrhea Acute Palliative care encounter Acute Pancreatitis Acute Pulmonary embolus Acute
[2017-01-24] MEDS ORDERED: amLODIPine BESYLATE 5 MG TAB PO SCH (09:00)
[2017-01-24 11:28] VITALS: BP 139/66; PULSE 85; TEMP 98.2; O2SAT 92
--- NOTE | 2017-01-24 13:19 | GDS ---
[f rep st] DISCHARGE SUMMARY DISCHARGE DIAGNOSES: 1. Dizziness, vertigo. 2. Infiltrate on chest x-ray. Initial concern for pneumonia. 3. Left great toe edema, status post left second toe amputation. 4. Peripheral vascular disease. 5. Diabetes type 2. 6. History of pulmonary embolism and deep venous thrombosis. 7. Hypertension. HISTORY OF PRESENT ILLNESS: Briefly the patient is a 81-year-old male who presented to the emergency room with dizziness. He has a recent history of sepsis secondary to toe osteomyelitis, status post amputation. He is markedly better. He will be discharged home and follow up with Dr. Dietrich in the outpatient setting. HOSPITAL COURSE: 1. Dizziness/vertigo. This has resolved. The CT of his head is stable. 2. Infiltrate on the chest x-ray. There was some concern of possible pneumonia. He had a procalcitonin level that was low and antibiotics were discontinued. His lung sounds are clear throughout. He is on room air and afebrile. 3. Left great toe edema. This resolved. 4. Peripheral vascular disease. He will need a left iliac artery stent and an AAA stent in the future. He will follow up with Dr. Dietrich. 5. Diabetes mellitus type 2. Well controlled. 6. History of PE and DVT. INR is 2.47. 7. Hypertension. Stable. PENDING LABS AND TESTS: None. CONDITION AT DISCHARGE: Stable. Blood pressure is 139/66, heart rate is 85, respiratory rate is 18, O2 saturations on room air 92%, temperature is 36.8 Celsius. MEDICATIONS AT DISCHARGE: Please see the EMR. DISCHARGE INSTRUCTIONS: 1. To further follow up with Dr. Dietrich in regard to stents. 2. Continue monitoring his INR. Copy requested to: Dr. Dietrich /[id number]/MODL MTDD
[2017-01-24] MEDS ORDERED: WARFARIN SODIUM 5 MG TAB PO SCH (18:00)
== END 2017-01-24 14:08 | disposition home or self-care (01) ==
LOC: EDUNIT# → F3E 15:59
PROVIDERS: ADMIT Student in an Organized Health Care Education/Training Program; ATTEND Internal Medicine
DX: R42 Dizziness and giddiness (principal); R91.8 Other nonspecific abnormal finding of lung field; S90.112A Contusion of left great toe without damage to nail, initial encounter; W20.8XXA Other cause of strike by thrown, projected or falling object, initial encounter; Y92.009 Unspecified place in unspecified non-institutional (private) residence as the place of occurrence of the external cause; Y93.E5 Activity, floor mopping and cleaning; E11.51 Type 2 diabetes mellitus with diabetic peripheral angiopathy without gangrene; I10 Essential (primary) hypertension; Z86.711 Personal history of pulmonary embolism; Z86.718 Personal history of other venous thrombosis and embolism; Z89.422 Acquired absence of other left toe(s); Z87.891 Personal history of nicotine dependence; Z86.19 Personal history of other infectious and parasitic diseases
CPT/HCPCS: 70450; 71020; 97161; 97165; 99285; G0378; G8978; G8979; G8987; G8988; G8989; J0456; J0696; J1200

== ENCOUNTER 2017-05-06 09:17 | Emergency (ER) | payer OTHER ==
[2017-05-06 09:26] VITALS: RESP 18
--- NOTE | 2017-05-06 10:12 | EDPHY ---
H & P Stated Complaint: clearing throat this morning/noted blood clot in mucus/on coumadin Time Seen by Provider: 05/06/17 10:01 HPI/ROS: CHIEF COMPLAINT: Bloody sputum HISTORY OF PRESENT ILLNESS: The patient is an 82-year-old man who takes Coumadin for a history of DVT who comes to the emergency department stating that this morning when he tried to clear his throat he had a small amount of blood mixed with mucus. He has not had any blood since. He is not vomiting. He is not short of breath. He denies chest pain. He has not had his INR checked in several weeks. He is not sure why he still takes Coumadin after year. REVIEW OF SYSTEMS: Constitutional: denies: chills, fever, recent illness, recent injury EENTM: See HPI denies: blurred vision, double vision, nose congestion Respiratory: denies: cough, shortness of breath Cardiac: denies: chest pain, irregular heart rate, lightheadedness, palpitations Gastrointestinal/Abdominal: denies: abdominal pain, diarrhea, nausea, vomiting, blood streaked stools Genitourinary: denies: dysuria, frequency, hematuria, pain Musculoskeletal: denies: joint pain, muscle pain Skin: denies: lesions, rash, jaundice, bruising Neurological: denies: headache, numbness, paresthesia, tingling, dizziness, weakness Hematologic/Lymphatic: denies: blood clots, easy bleeding, easy bruising Immunologic/allergic: denies: HIV/AIDS, transplant EXAM: GENERAL: Well-appearing, overweight and in no acute distress. HEAD: Atraumatic, normocephalic. EYES: Pupils equal round and reactive to light, extraocular movements intact, sclera anicteric, conjunctiva are normal. ENT: TMs normal, nares patent, oropharynx clear without exudates. Moist mucous membranes. NECK: Normal range of motion, supple without lymphadenopathy or JVD. LUNGS: Breath sounds clear to auscultation bilaterally and equal. No wheezes rales or rhonchi. HEART: Regular rate and rhythm without murmurs, rubs or gallops. ABDOMEN: Soft, nontender, normoactive bowel sounds. No guarding, no rebound. No masses appreciated. BACK: No CVA tenderness, no spinal tenderness, step-offs or deformities EXTREMITIES: Normal range of motion, no pitting or edema. No clubbing or cyanosis. NEUROLOGICAL: Cranial nerves II through XII grossly intact. Normal speech, normal gait. 5/5 strength, normal movement in all extremities, normal sensation PSYCH: Normal mood, normal affect. SKIN: Warm, dry, normal turgor, no visible rashes or lesions. Source: Patient Exam Limitations: No limitations - Personal History Current Tetanus/Diphtheria Vaccine: Yes Tetanus Vaccine Date: last 10 years - Medical/Surgical History Hx Asthma: No Hx Chronic Respiratory Disease: No Hx Diabetes: Yes Hx Cardiac Disease: Yes Hx Renal Disease: No Hx Cirrhosis: No Hx Alcoholism: No Hx HIV/AIDS: No Hx Splenectomy or Spleen Trauma: No Other PMH: HTN, DVT, AAA 5.2x5cm on 02/13/16, PVD, spinal stenosis. R foot drop. repeated falls, CHI, vertigo. Psoriasis. - Family History Significant Family History: No pertinent family hx - Social History Smoking Status: Former smoker Alcohol Use: Sober Drug Use: None Constitutional: Initial Vital Signs Temperature (C) 36.6 C 05/06/17 09:23 Heart Rate 78 05/06/17 09:23 Respiratory Rate 18 05/06/17 09:23 Blood Pressure 174/123 H 05/06/17 09:23 O2 Sat (%) 93 05/06/17 09:23 O2 Delivery Mode Room Air Allergies/Adverse Reactions: Tetracyclines Allergy (Intermediate, Verified 10/23/16 16:29) Vomiting azithromycin Allergy (Unknown, Verified 01/23/17 17:38) Itching nitrofurantoin [From Macrobid] Allergy (Unknown, Verified 10/23/16 16:29) nitrofurantoin macrocrystalline [From Macrobid] Allergy (Unknown, Verified 10/23 16:29) Penicillins Allergy (Unknown, Verified 10/23/16 16:29) Sulfa (Sulfonamide Antibiotics) Allergy (Unknown, Verified 10/23/16 16:29) Home Medications: Medication Instructions Recorded Lisinopril [Zestril 20 mg (*)] 20 mg PO DAILY@18 08/01/16 amLODIPine BESYLATE [Norvasc 5 mg 5 mg PO DAILY #30 tab 08/04/16 (*)] Warfarin Sodium [Coumadin 5MG (*)] 7.5 mg PO SUMOWEFRSA@12/12/16 Warfarin Sodium [Coumadin 5MG (*)] 10 mg PO TUTH@18 12/12/16 Acetaminophen [Tylenol 325mg (*)] 650 mg PO Q4HRS PRN #0 tab 01/24/17 Medical Decision Making ED Course/Re-evaluation: 12:00 p.m. we discussed the patient's results. He is reassured. I spoke with Dr. Felipa Zamora his former doctor about his anticoagulation. She agrees that he could probably come off it at this point but it has been over a year since his DVT. I am somewhat concerned about him being on anticoagulants in the face of an aortic aneurysm. The patient would prefer to stop the. We will have him stop that for now and I will refer him to a new primary physician. He has not had any more symptoms. Differential Diagnosis: Partial list of the Differential diagnosis considered include but were not limited to; Coumadin overdose, abrasion and although unlikely based on the history and physical exam, I also considered strep throat, pneumonia, aneurysm, dissection. I discussed these differential diagnoses and the plan with the patient as well as the usual and expected course. The patient understands that the diagnosis is provisional and that in medicine we are not always correct and that further workup is often warranted. Usual and customary warnings were given. All of the patient's questions were answered. The patient was instructed to return to the emergency department should the symptoms at all worsen or return, otherwise to followup with the physician as we discussed. - Data Points Laboratory Results: Laboratory Results 05/06/17 10:41 05/06/17 10:41 Departure - Departure Disposition: Home, Routine, Self-Care Clinical Impression: Bloody sputum Condition: Fair Instructions: Warfarin (By mouth) Additional Instructions: Discontinue your Coumadin use until you follow up with your new primary physician and revisit the issue with them. Referrals: NONE *PRIMARY CARE P,. [Primary Care Provider] - As per Instructions Nadeen Velasquez MD [[facility] Primary Care Provider] - As per Instructions
[2017-05-06 10:50] LABS: % IMMATURE GRANULYOCYTES 0.2 % (0.0-1.1); ABSOLUTE IMMATURE GRANULOCYTES 0.01 10^3/uL (0.00-0.10); ADD DIFF? NO; ADD MORPH? NO; ADD SCAN? NO; ATYPICAL LYMPHOCYTE FLAG 0 (0-99); FRAGMENT RBC FLAG 0 (0-99); HEMOGLOBIN 14.5 g/dL (13.7-17.5); LEFT SHIFT FLG 0 (0-99); LIPEMIA HEMOLYSIS FLAG 80 (0-99); MEAN CELL HEMOGLOBIN 28.8 pg (27.9-34.1); MEAN CELL HEMOGLOBIN CONCENTR. 32.2 g/dL (32.4-36.7); MEAN CELL VOLUME 89.3 fL (81.5-99.8); MEAN PLATELET VOLUME 10.6 fL (8.7-11.7); PLATELET CLUMPS FLAG 0 (0-99); PLATELET COUNT 107 10^3/uL (150-400); RED BLOOD CELL COUNT 5.04 10^6/uL (4.40-6.38); RED CELL DISTRIBUTION WIDTH 15.5 % (11.5-15.2)
[2017-05-06 10:59] VITALS: O2SAT 95
[2017-05-06 11:07] LABS: INR 1.74 (0.83-1.16); PROTIME(PATIENT) 20.4 SEC (12.0-15.0)
[2017-05-06 11:08] LABS: ANION GAP 10 mEq/L (8-16); APTT 31.3 SEC (23.0-38.0); CALCIUM 9.4 mg/dL (8.5-10.4); CARBON DIOXIDE 26 mEq/l (22-31); CHLORIDE 103 mEq/L (97-110); CREATININE 1.3 mg/dL (0.7-1.3); GLOMERULAR FILTRATION RATE 53; GLUCOSE 95 mg/dL (70-100); POTASSIUM 4.7 mEq/L (3.5-5.2); SODIUM 139 mEq/L (134-144)
[2017-05-06 12:08] VITALS: BP 158/63; PULSE 67; TEMP 98.4
== END 2017-05-06 12:25 | disposition home or self-care (01) ==
DX: R04.2 Hemoptysis (principal); I10 Essential (primary) hypertension; E11.9 Type 2 diabetes mellitus without complications; Z87.891 Personal history of nicotine dependence; Z79.01 Long term (current) use of anticoagulants

== ENCOUNTER 2017-08-31 14:22 | Inpatient (IN) | payer OTHER ==
--- NOTE | 2017-08-31 14:26 | EDPHY ---
H & P Source: Patient Exam Limitations: No limitations - Personal History Tetanus Vaccine Date: last 10 years - Medical/Surgical History Hx Asthma: No Hx Chronic Respiratory Disease: No Hx Diabetes: Yes Hx Cardiac Disease: Yes Hx Renal Disease: No Hx Cirrhosis: No Hx Alcoholism: No Hx HIV/AIDS: No Hx Splenectomy or Spleen Trauma: No Other PMH: HTN, DVT, AAA 5.2x5cm on 02/13/16, PVD, spinal stenosis. R foot drop. repeated falls, CHI, vertigo. Psoriasis. - Social History Smoking Status: Former smoker Time Seen by Provider: 08/31/17 14:25 Constitutional: Initial Vital Signs Temperature (C) 37.1 C 08/31/17 14:22 Heart Rate 78 08/31/17 14:22 Respiratory Rate 18 08/31/17 14:22 Blood Pressure 141/123 H 08/31/17 14:22 O2 Sat (%) 98 08/31/17 14:22 O2 Delivery Mode Nasal Cannula O2 (L/minute) 4 Allergies/Adverse Reactions: Tetracyclines Allergy (Intermediate, Verified 08/31/17 14:41) Vomiting azithromycin Allergy (Unknown, Verified 08/31/17 14:41) Itching nitrofurantoin [From Macrobid] Allergy (Unknown, Verified 08/31/17 14:41) nitrofurantoin macrocrystalline [From Macrobid] Allergy (Unknown, Verified 08/31 14:41) Penicillins Allergy (Unknown, Verified 08/31/17 14:41) Sulfa (Sulfonamide Antibiotics) Allergy (Unknown, Verified 08/31/17 14:41) Home Medications: Medication Instructions Recorded Lisinopril [Zestril 20 mg (*)] 20 mg PO DAILY@18 08/01/16 amLODIPine BESYLATE [Norvasc 5 mg 5 mg PO DAILY #30 tab 08/04/16 (*)] Acetaminophen [Tylenol 325mg (*)] 650 mg PO Q4HRS PRN #0 tab 01/24/17 Medical Decision Making - Diagnostics Imaging Results: Imaging Impressions Hip X-Ray 08/31/17 14:33 Impression: Acute minimally angulated and impacted left femoral neck fracture. ED Course/Re-evaluation: CHIEF COMPLAINT: Left hip pain HISTORY OF PRESENT ILLNESS: 82-year-old gentleman who was sitting in an over- stuffed chair that he was not used to. He tried to get up and fell out of a chair landing on his left hip. He was unable to get off the floor he has severe left hip pain. He denies any other injuries. REVIEW OF SYSTEMS: A 10 point review of systems was performed and is negative with the exception of the elements mentioned in the history of present illness. PHYSICAL EXAM: HR, BP, O2 Sat, RR. Temp noted General Appearance: Alert, well hydrated, appropriate, and non-toxic appearing. Head: Atraumatic without scalp tenderness or obvious injury Eyes: Pupils equal, round, reactive to light and accommodation, EOMI, no trauma , no injection. Ears: Clear bilaterally, no perforation, normal landmarks Nose: Atraumatic, no rhinorrhea, clear. Throat: There is no erythema or exudates, no lesions, normal tonsils, mucus membranes moist. Neck: Supple, 2+ carotid upstroke, nontender, no lymphadenopathy. Respiratory: No retractions, no distress, no wheezes, and no accessory muscle use. Lungs are clear to auscultation bilaterally. Cardiovascular: Regular rate and rhythm, no murmurs, rubs, or gallops. Bilateral carotid, radial, dorsalis pedis, and posterior tibial pulses intact. Good capillary refill all extremities. Gastrointestinal: Abdomen is soft, nontender, non-distended, no masses, no rebound, no guarding, no peritoneal signs. Musculoskeletal: Severe left hip pain with any movement. The leg seems externally rotated. Otherwise, Normal active ROM of all extremities, atraumatic. Neurological: Alert, appropriate, and interactive. The patient has normal DTRs and non-focal cranial nerves, motor, sensory, and cerebellar exam. Skin: No rashes, good turgor, no nodules on palpation. Past medical history: Hypertension, anticoagulated on warfarin Past surgical history: Noncontributory Family history: Noncontributory Social history: Lives at a nursing facility assisted living, denies tobacco drug or alcohol use DIAGNOSTICS/PROCEDURES/CRITICAL CARE TIME: Study: Two views of the left hip Indication: Trauma Results: After viewing the images myself on the PACS system. My interpretation of the images is: no acute process. The radiologist interpretation is pending at the time of this dictation. I have discussed the above x-rays with the radiologist. DIFFERENTIAL DIAGNOSIS: The differential diagnosis for the patient's trauma included but was not limited to intracranial injury, long bone and pelvic bone fractures, spinal injury, intra-abdominal injury, and intra-thoracic injury. MEDICAL DECISION MAKING: This patient has isolated left hip pain with a bruise or contusion over the left hip on the skin. He is unable to move his leg without severe pain. We are giving him some Dilaudid and repositioning him for comfort and obtaining x-rays. I will also check his PT INR and laboratory studies. The patient was signed out to Dr. Sosa pending hip x-rays and lab work. ( Chung Johnson) 1500: The patient is signed out to me at change of shift. I reviewed the patient's pelvis x-ray. Patient is noted to have a left femoral neck fracture. I went evaluated the patient. He was complaining only of left hip pain. He he denied headache, loss of conscious, neck or back pain. He had no chest pain or abdominal pain. On exam he had no focal neurologic deficits. He had mild tenderness palpation of his left hip. There is no significant hematoma or swelling. The patient informed me that he was previously on warfarin for DVT but he stopped this because he had spontaneous bleeding. Patient also states that he was diagnosed with an aortic aneurysm. It was recommended by Dr. Dietrich that the patient have his aortic aneurysm stented. However, the patient chose not to pursue this procedure. I discussed the results with Dr. Choi from Orthopedics. He will evaluate the patient. I also discussed the case with Dr. Stuart from the hospitalist service. He will admit the patient. (Mariana Sosa) - Data Points Laboratory Results: Laboratory Results 08/31/17 14:45 08/31/17 14:45 08/31/17 08/31/17 08/31/17 14:45 14:45 14:45 WBC 5.97 10^3/uL 10^3/uL (3.80-9.50) RBC 5.25 10^6/uL 10^6/uL (4.40-6.38) Hgb 15.0 g/dL g/dL (13.7-17.5) Hct 47.8 % % (40.0-51.0) MCV 91.0 fL fL (81.5-99.8) MCH 28.6 pg pg (27.9-34.1) MCHC 31.4 g/dL L g/dL (32.4-36.7) RDW 14.6 % % (11.5-15.2) Plt Count 115 10^3/uL L 10^3/uL (150-400) MPV 10.8 fL fL (8.7-11.7) Neut % (Auto) 82.8 % H % (39.3-74.2) Lymph % (Auto) 10.2 % L % (15.0-45.0) [place] % (Auto) 5.4 % % (4.5-13.0) Eos % (Auto) 1.0 % % (0.6-7.6) Baso % (Auto) 0.3 % % (0.3-1.7) Nucleat RBC Rel Count 0.0 % % (0.0-0.2) Absolute Neuts (auto) 4.94 10^3/uL 10^3/uL (1.70-6.50) Absolute Lymphs (auto) 0.61 10^3/uL L 10^3/uL (1.00-3.00) Absolute Monos (auto) 0.32 10^3/uL 10^3/uL (0.30-0.80) Absolute Eos (auto) 0.06 10^3/uL 10^3/uL (0.03-0.40) Absolute Basos (auto) 0.02 10^3/uL 10^3/uL (0.02-0.10) Absolute Nucleated RBC 0.00 10^3/uL 10^3/uL (0-0.01) Immature Gran % 0.3 % % (0.0-1.1) Immature Gran # 0.02 10^3/uL 10^3/uL (0.00-0.10) PT 14.0 SEC SEC (12.0-15.0) INR 1.06 (0.83-1.16) APTT 33.2 SEC SEC (23.0-38.0) Sodium 144 mEq/L mEq/L (135-145) Potassium 5.9 mEq/L H mEq/L (3.5-5.2) Chloride 109 mEq/L mEq/L (97-110) Carbon Dioxide 21 mEq/l L mEq/l (22-31) Anion Gap 14 mEq/L mEq/L (8-16) BUN 27 mg/dL H mg/dL (7-23) Creatinine 1.1 mg/dL mg/dL (0.7-1.3) Estimated GFR > 60 Glucose 104 mg/dL H mg/dL (70-100) Calcium 9.2 mg/dL mg/dL (8.5-10.4) Medications Given: Discontinued Medications Hydromorphone HCl (Dilaudid) 1 mg IVP EDNOW ONE Stop: 08/31/17 14:36 Last Admin: 08/31/17 14:38 Dose: 1 mg Hydromorphone HCl (Dilaudid) 0.5 mg IVP EDNOW ONE Stop: 08/31/17 15:57 Last Admin: 08/31/17 15:58 Dose: 0.5 mg Departure - Departure Condition: Good Referrals: Patient,NotPresent [Unknown] - As per Instructions
[2017-08-31] MEDS ORDERED: HYDROmorphONE/DILAUDID 1 MG/ML INJ IVP ONE ×2 (14:35→15:56)
[2017-08-31 14:55] LABS: PLATELET COUNT 115 10^3/uL (150-400)
[2017-08-31 15:11] LABS: INR 1.06 (0.83-1.16)
[2017-08-31] MEDS ORDERED: HYDROmorphONE/DILAUDID 1 MG/ML INJ ONE (15:54)
[2017-08-31] MEDS ORDERED: SODIUM POLY SULF 15 GM/60 ML BOTTLE PO ONE (16:46)
--- NOTE | 2017-08-31 16:59 | CPEKG ---
Heart Rate: 76 RR Interval: 789 P-R Interval: 165 QRSD Interval: 100 QT Interval: 404 QTC Interval: 455 P [place]: 69 QRS [place]: 28 T Wave [place]: -11 EKG Severity - ABNORMAL ECG - EKG Impression: SINUS RHYTHM EKG Impression: PROBABLE INFERIOR INFARCT, AGE INDETERMINATE Electronically Signed By: Mariana Sosa 31-Aug-2017 22:29:58
[2017-08-31] MEDS ORDERED: FUROSEMIDE 20 MG/2 ML VIAL IVP ONE (17:16)
[2017-08-31] MEDS ORDERED: ONDANSETRON DISINTEGRATING 4 MG TAB PO PRN (17:21)
[2017-08-31] MEDS ORDERED: ONDANSETRON 4 MG/2 ML VIAL IVP PRN ×2 (17:21→20:00)
[2017-08-31] MEDS ORDERED: NS 1,000 ML IV SCH (17:30)
--- NOTE | 2017-08-31 18:02 | GHP ---
[f rep st] HISTORY AND PHYSICAL DATE OF ADMISSION: 08/31/2017 HISTORY OF PRESENT ILLNESS: The patient is a pleasant 82-year-old gentleman with a history of AAA, a trial fibrillation, and hypertension, who presents with a mechanical fall. He fell off a recliner, r esulting in a left femoral neck fracture. The patient denies antecedent chest pain, shortness of shayan ath, palpitations. Regarding activity, it sounds like he is able to get to about 4 METS, perhaps less. He is limited no t by shortness of breath or chest pain, but rather by unsteadiness on his feet. He does have a known abdominal aortic aneurysm that is followed by Dr. Dietrich. It sounds like imaging in November 2015 demonstrated this to be 5.2 x 5 cm. It sounds like he also has a fair amount of vascu lar disease in his TOMY and iliac arteries. The patient does not have known coronary disease. REVIEW OF SYSTEMS: A complete 10-point review of systems conducted and negative except as noted in t he HPI. PAST MEDICAL HISTORY: 1. Atrial fibrillation, not on Coumadin. 2. 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 3. Group B Strep bacteremia. 4. Peripheral vascular disease. 5. Abdominal aortic aneurysm. 6. History of PE and DVT, on chronic anticoagulation, though it does not appear he is on it now. 7. Hypertension. 8. Type 2 diabetes. 9. Atrial fibrillation. ALLERGIES: Tetracyclines, azithromycin, nitrofurantoin, sulfa, penicillin. HOME MEDICATIONS: Amlodipine and lisinopril. SOCIAL HISTORY: Does not smoke cigarettes, but he did smoke heavily until 1979. Does not drink much alcohol. Lives with his . He is a retired artist. FAMILY HISTORY: Reviewed and unremarkable. PHYSICAL EXAMINATION: VITAL SIGNS: Temp 37.1, blood pressure 141/123, now 155/67, pulse 78, breathi ng 18 times a minute, 98% on 2 L. GENERAL: No acute distress. HEENT: Sclerae anicteric. Orophary nx clear. Mucous membranes are moist. NECK: Supple without lymphadenopathy or JVD. LUNGS: Clear to auscultation bilaterally. HEART: S1, S2 without murmurs. ABDOMEN: Soft, nontender. It is obes e. EXTREMITIES: Lower extremities: Left lower extremity is externally rotated and foreshortened. He has chronic venous stasis changes. NEUROLOGIC: Nonfocal. SKIN: Chronic venous stasis changes, lower extremities. LABORATORY DATA: White count 6, hematocrit 48, platelets are 115,000. INR is 1. Sodium 134, potass ium 5.9, chloride 109, bicarb 21, BUN 27, creatinine 1.1, glucose 104. Hip film, interpreted by me, shows a left femoral neck fracture. EKG, interpreted by me, shows sinus at 76 with normal axis and intervals, with T-wave inversion in le ad III, but otherwise unremarkable. I discussed the case Dr. Mariana Sosa as well as Dr. Florin thomas. ASSESSMENT/PLAN: 82-year-old gentleman with hip fracture. 1. Hip fracture. Operative repair indicated. Discussed with Dr. Choi. 2. Hyperkalemia. Probably secondary to his HEAVEN inhibitor. I have given him Kayexalate, IV fluids, and Lasix. We are going to repeat at 7 p.m. prior to the OR. 3. Preoperative cardiac evaluation. The patient can maybe complete 4 METS. Less certain. He does not have any active cardiac conditions. He may proceed to the OR without further workup or intervent ion. He represents a moderate-risk patient for a moderate-risk surgery with a perioperative cardiac complication rate of about 5%. 4. Abdominal aortic aneurysm. This has not been followed recently. I think the risk of this ruptur ing intraoperatively as low. It may be worth discussing this with Dr. Dietrich later in the admission. 5. Pain. Scheduled Tylenol, p.r.n. oxycodone. 6. Atrial fibrillation. The patient is at risk for postoperative atrial fibrillation. I would not put him on telemetry. DISPOSITION: Inpatient status, PT/OT. /[id number]/MODL
--- NOTE | 2017-08-31 18:34 | PDMN ---
Medical Necessity Medical necessity: C/M review: est. > 2 MN LOS for eval and TX of acute left femoral neck fracture 9left hip fracture), hyperkalemia, pain requiring planned Orthopedic consult, 08/31/2016 urgent surgical intervention, ongoing preop NPO, IV fluids, IV Zofran, comorbid mechanical fall just prior to this admission, abdominal aortic aneurysm, atrial fibrillation not on Coumadin, hypertension, type 2 diabetes, peripheral vascular disease, history of sepsis secondary to toe osteomyelitis, group B strep bacteremia, PE, DVT previously on chronic anticoagulation per H/P.
[2017-08-31] MEDS ORDERED: ceFAZolin 2 GM/SWFI 2 GM/20 ML SYR IVP ONE (18:50)
--- NOTE | 2017-08-31 18:53 | PDANEPAE ---
ANE History of Present Illness 82 year old male w/ PMHx of A. Fib, HTN, PVD, AAA & DM2 presents following mechanical fall with hip fracture. To OR for swati-arthroplasty. ANE Past Medical History - Cardiovascular History Hx Hypertension: Yes Hx Arrhythmias: Yes Hx Chest Pain: No Hx Coronary Artery / Peripheral Vascular Disease: Yes Hx CHF / Valvular Disease: No - Pulmonary History Hx COPD: No Hx Asthma/Reactive Airway Disease: No Hx Recent Upper Respiratory Infection: No Hx Oxygen in Use at Home: No Hx Sleep Apnea: No Sleep Apnea Screening Result - Last Documented: Positive - Endocrine History Hx Diabetes: Yes Hypothyroid: No Hyperthyroid: No Obesity: no - Renal History Hx Renal Disorders: No - Liver History Hx Hepatic Disorders: No - Neurological & Psychiatric Hx Hx Neurological and Psychiatric Disorders: No - Cancer History Hx Cancer: No - Chronic Pain History Chronic Pain: No ANE Review of Systems Review of systems is: negative Review of Systems: - Exercise capacity Exercise capacity: <4 METS ANE Patient History - Allergies Allergies/Adverse Reactions: Tetracyclines Allergy (Intermediate, Verified 08/31/17 14:41) Vomiting azithromycin Allergy (Unknown, Verified 08/31/17 14:41) Itching nitrofurantoin [From Macrobid] Allergy (Unknown, Verified 08/31/17 14:41) nitrofurantoin macrocrystalline [From Macrobid] Allergy (Unknown, Verified 08/31 14:41) Penicillins Allergy (Unknown, Verified 08/31/17 18:56) Sulfa (Sulfonamide Antibiotics) Allergy (Unknown, Verified 08/31/17 14:41) - Home Medications Home medications: home medication list seen and reviewed Home Medications: Lisinopril [Zestril 20 mg (*)] 20 mg PO DAILY@18 08/01/16 [Last Taken 08/30/17] - NPO status NPO Since - Liquids (Date): 08/31/17 NPO Since - Liquids (Time): 14:30 NPO Since - Solids (Date): 08/31/17 NPO Since - Solids (Time): 14:30 - Anes Hx Anes Hx: no prior problems - Smoking Hx Smoking Status: Former smoker Marijuana use: No - Alcohol Use Alcohol Use: None - Family Anes Hx Family Anes Hx: neg - N/A ANE Labs/Vital Signs - Labs Result Diagrams: 08/31/17 14:45 08/31/17 18:22 - Vital Signs Vital Signs: reviewed preoperatively; see RN documention for details Blood Pressure: 165/77 Heart Rate: 81 Respiratory Rate: 16 O2 Sat (%): 98 Height: 198.12 cm Weight: 100 kg ANE Physical Exam - Airway Neck exam: FROM Mallampati Score: Class 2 Mouth exam: poor dentition - Pulmonary Pulmonary: no respiratory distress - Cardiovascular Cardiovascular: regular rate and rhythym - ASA Status ASA Status: III ANE Anesthesia Plan Anesthesia Plan: general endotracheal anesthesia
[2017-08-31] MEDS ORDERED: BUPIVACAINE 0.5% 30 ML SDV ONE (19:04)
[2017-08-31] MEDS ORDERED: PROPOFOL 200 MG/20 ML VIAL ONE (19:08)
[2017-08-31] MEDS ORDERED: fentaNYL 100 MCG/2 ML INJ ONE ×2 (19:08→21:38)
[2017-08-31] MEDS ORDERED: ONDANSETRON 4 MG/2 ML VIAL ONE (19:11)
[2017-08-31] MEDS ORDERED: ROCURONIUM 50 MG/5 ML VIAL ONE ×2 (19:11→19:38)
[2017-08-31] MEDS ORDERED: DEXAMETHASONE 4 MG/ML VIAL ONE (19:11)
[2017-08-31] MEDS ORDERED: LIDOCAINE 2% 5 ML SDV ONE (19:11)
[2017-08-31] MEDS ORDERED: ceFAZolin 1 GM VIAL ONE ×2 (19:38)
[2017-08-31] MEDS ORDERED: NALOXONE HCL 0.4 MG/ML INJ IVP PRN ×2 (20:00→21:59)
[2017-08-31] MEDS ORDERED: HYDROmorphONE/DILAUDID 1 MG/ML INJ IVP PRN (20:00)
[2017-08-31] MEDS ORDERED: NS 500 ML IV PRN (20:00)
[2017-08-31] MEDS ORDERED: PHENYLEPHRINE HCL 100 MCG/ML SYR IVP PRN (20:00)
[2017-08-31] MEDS ORDERED: SUGAMMADEX SODIUM 200 MG/2 ML VIAL IVP ONE (21:00)
--- NOTE | 2017-08-31 21:30 | POSTOPPROG ---
Post Op Note Date of Operation: 08/31/17 Surgeon: Jf Choi Anesthesia: GET(General Endotracheal) Pre-op Diagnosis: L hip fx Post-op Diagnosis: same Indication: above Procedure: L hip hemiarthroplasty Findings: fx Inf/Abcess present in the surg proc area at time of surgery?: No EBL: 100-500
[2017-08-31] MEDS: fentaNYL 100 MCG/2 ML INJ IVP PRN ×2 (21:40→22:17)
[2017-08-31] MEDS ORDERED: LABETALOL HCL 5 MG/ML 20 ML MDV IVP PRN (21:59)
[2017-08-31] MEDS: ACETAMINOPHEN 500 MG TAB PO SCH (21:59)
--- NOTE | 2017-08-31 22:00 | GCON ---
[f rep st] CONSULTATION DATE OF CONSULTATION: 08/31/2017 HISTORY OF PRESENT ILLNESS: An 82-year-old gentleman with a complex medical history, who fell today out of his recliner and sustained a left femoral neck fracture. He was brought to the [facility] of extreme pain in his left hip. Denies other pain. Denies chest pain, shortness of breath, or o ther difficulties. PAST MEDICAL HISTORY: 1. Known triple A. He has been followed by Dr. Dietrich, but has refused intervention for this. 2. Atrial fibrillation. He is not on Coumadin. 3. 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 4. Diabetes with peripheral neuropathy. 5. History of PE and DVT. He had been on chronic anticoagulation. 6. Peripheral vascular disease. 7. Group B strep. ALLERGIES: Tetracycline, erythromycin, nitrofurantoin, sulfa, penicillin. HOME MEDICATIONS: Amlodipine and lisinopril. SOCIAL HISTORY: He does not smoker. He does live at home with his . He is retired. REVIEW OF SYSTEMS: A 10-point review of systems was performed and is negative other than the above a nd in the HPI. FAMILY HISTORY: Reviewed and unremarkable. PHYSICAL EXAMINATION: GENERAL: He is alert. He is oriented. He is appropriate. He appeared in mi ld distress. VITAL SIGNS: His vital signs are stable. HEENT: His head is normocephalic and atraum atic. His eyes are equal. His mucous membranes are moist. NECK: Supple. LUNGS: Clear to auscult ation. HEART: Regular rate and rhythm. ABDOMEN: Soft. EXTREMITIES: His upper extremity he moves well, with no deficits and no pain. His left lower extremity is held in shortened external rotation . Flexion: I did not test this. Right lower extremity: He can move without pain. He has minimal sensation distally in both extremities. LABORATORY: He has a potassium of 5.9. Please see the electronic medical record for the full labs. DIAGNOSTIC DATA: X-rays: He has a left femoral neck fracture. ASSESSMENT: Left femoral neck fracture. PLAN: I discussed his case with him, his , the hospitalist, and the ER physician, as well as Dr. Stuart. We as a team feel it is reasonable to proceed with surgery tonight, in spite of his medical conditions and his known AAA, as there is not any intervention that will likely make him any healthi er for the operating room. He consented for surgery for a left hip hemiarthroplasty. We discussed t he risks of fracture, dislocation, wound infection, septic joint, the need for revision, rupture of h is triple AAA, heart attack, stroke, and . He elected to proceed. Informed consent was obtaine d from him and his durable medical power of civil attorney. /[id number]/MODL
--- NOTE | 2017-08-31 22:05 | GOP ---
[f rep st] OPERATIVE REPORT DATE OF OPERATION: 08/31/2017 SURGEON: Jf Choi MD [employer] MACHINE HELPER: None. ANESTHESIA: General. PREOPERATIVE DIAGNOSIS: Left hip fracture, femoral neck. POSTOPERATIVE DIAGNOSIS: Left hip fracture, femoral neck. PROCEDURE PERFORMED: Left femoral neck hemiarthroplasty. FINDINGS: SPECIMENS: Femoral head. ESTIMATED BLOOD LOSS: 200 mL. INDICATIONS: This is an 82-year-old male with multiple medical problems, who sustained this femoral neck fracture. Counseled on the risks and benefits of operative intervention. We discussed risks of rupture of his AAA, heart attack, stroke, , fracture dislocation, stiffness, pain, need for rev ision, infection. He elected to proceed. I discussed this thoroughly with the hospitalist, who agre ed that he did not need any further workup regarding the AAA and proceeding with surgery sooner rathe r than later was in his best interest. DESCRIPTION OF PROCEDURE: We took him to the operative suite. He was sterilely prepped and draped i n normal fashion. Time-out was performed verifying the site, side, location with agreement by all me mbers of the team. All bony prominences were padded. Incision was made over the hip. I dissected through the subcutane ous tissue, incised the fascia, identified the abductor, and defined this. Elevated approximately th e anterior 1/4 of the abductor and tagged this for later repair. Did T capsulotomy and exposed the h ip fracture, which was completely fractured. Made a femoral neck cut after using the guide and anato lynne landmarks. Removed the head and extra bone. Sized this at a 58. Used a box osteotome, wagneri zing reamer and the broaches, sized it to an 8. I placed the broach and trials and selected a size 0 . I then took this out, placed the final implant in, again trialed, and selected a size 0 head and 5 8 outer. I then thoroughly irrigated this, placed the final implants, relocated this. Taken through range of motion and no impingement, good motion, no dislocation. It was quite stable. He was close d with #1 Vicryl in the capsule, #5 FiberWire in the abductors. #1 Vicryl and then 2-0 Vicryl, 3-0 Q uill, and Dermabond. Flat plates were taken in the OR confirming the placement of the implant, stem. No intraoperative fracture. He was taken in good condition to the PACU. IMPLANTS: Viktoria Accolade 2132 neck, stem size #8, 50 mm outer ball, 26 mm inner ball, 0 offset. COMPLICATIONS: None. DRAINS: None. CONDITION: Stable. /[id number]/MODL
[2017-08-31] MEDS: oxyCODONE IR 5 MG TAB PO PRN (22:42)
[2017-09-01] MEDS: HYDROmorphONE/DILAUDID 1 MG/ML INJ IVP PRN ×3 (00:49→18:34)
--- NOTE | 2017-09-01 01:03 | POSTANESTH ---
Post Anesthetic Evaluation Cardiovascular Status: Normal, Stable, Similar to Pre-Op Cond Respiratory Status: Normal, Stable, Similar to Pre-op Cond. Level of Consciousness/Mental Status: Can Participate in Eval, Mildly Sleepy, Arousable Pain Control: Adequate, Prn Tx Ordered Nausea/Vomiting Control: Adequate, Prn Tx Ordered Complications Possibly Related to Anesthesia: None Noted
[2017-09-01] MEDS: oxyCODONE IR 5 MG TAB PO PRN ×3 (02:47→18:16)
[2017-09-01] MEDS: ACETAMINOPHEN 500 MG TAB PO SCH ×2 (05:03→15:34)
[2017-09-01 05:04] LABS: PLATELET COUNT 123 10^3/uL (150-400)
[2017-09-01] MEDS: ENOXAPARIN 40 MG/0.4 ML SYR SC SCH (08:18)
[2017-09-01] MEDS ORDERED: SODIUM POLY SULF 15 GM/60 ML BOTTLE PO ONE (08:47)
[2017-09-01] MEDS ORDERED: LORazepam 0.5 MG TAB PO PRN (09:31)
[2017-09-01] MEDS ORDERED: POLYETHYLENE GLYCOL 3350 17 GM PKT PO PRN (09:45)
[2017-09-01] MEDS ORDERED: MAGNESIUM HYDROXIDE 30 ML UDCUP PO PRN (09:45)
[2017-09-01] MEDS ORDERED: BISACODYL 10 MG SUPP PR PRN (09:45)
[2017-09-01] MEDS ORDERED: LACTULOSE 20 GM/30 ML UDCUP PO PRN (09:45)
[2017-09-01] MEDS: TAMSULOSIN HCL 0.4 MG CAP PO SCH (09:48)
--- NOTE | 2017-09-01 15:14 | PDPCPN ---
Palliative Care Progress Note Assessment/Plan: Referring provider: Dr Valenzuela Reason for consult: Complex medical decision making Symptom control HPI: Liat Cameron is a 82 with PMH AAA, a fib, and HTN admitted to the hospital s/p the [facility] fall with left hip fx. S/p surgery for repair. Overnight he has been refusing some medical interventions at times with o2 sat 80% on room air. Palliative care consulted for complex medical decision making. Met with Liat this afternoon. He stated he doesn't even remember having surgery or for why. Discussed his medical situation with hip fx and multiple chronic medical problems. We discussed his goals of care including what and how much medical intervention he may want. He stated he lives each moment knowing he could because of his AAA but also spoke about that this information does not bother him much or change his decisions. He stated he would want CPR if this meant returning back to his same level of baseline. He spoke of being in a wheelchair would not be consistent with a good quality of life for him and he values his intellect and ability to voice his opinion. Discussed code status and what CPR is and he stated "if it wont return me back to my current level of functioning i wouldn't want it". He also spoke at length around his previous experiences with having to make life/ medical decisions for others and how hard it was. He also spoke of not knowing for himself these same decisions as he is not sure if he would make the right decision for himself even. Spoke with Velia his "Lady friend" over the phone who reiterated Liat's sentiments of wanting all medical interventions unless he would not return back to a good quality of life and baseline then he would not want to prolong his life. She also states that Liat is always talking about how "he wants to live " and feels due to medications and surgery he is more confused now than at baseline. Assessment: Physical: - Pain: left hip fx - tylenol scheduled - oxy or dilaudid PRN - ice to left hip - falls/weakness - PT/OT - fall precautions - constipation - at risk if using opiates - bowel regimen with senna and colace Emotional/psychological: Acute confusion: Likely 2/2 medications and surgery - maintain normal routines - zprexa for severe agitation Advanced Care Planning: Is patient decisional?: No Code Status: Full MD POA: does not have an official MDPOA or proxy. he has stated in the past he would want Velia to make decisions for himself. Plan: Meet with Velia and Liat tomorrow at 12 to clarify goals and wishes for medical interventions. 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 Has a "lady Friend" Velia who helps him at times. Medication list reviewed ROS: General: fatigue, weakness ENT: negative Resp: negative GI: negative : negative MS: left hip pain Skin: negative Neuro: negative Psych: confusion Functional assessment: PPS: 50% Functional status: dependent on ADLs, IADLs Vital Signs Temp Pulse Resp BP Pulse Ox 36.8 C 71 16 113/57 L 91 L 09/01/17 08:24 09/01/17 08:24 09/01/17 08:24 09/01/17 08:24 09/01/17 08:24 Laboratory Results 09/01/17 04:40 09/01/17 04:40 08/31/17 09/01/17 09/02/17 05:59 05:59 05:59 Intake Total 2370 300 Output Total 1850 Balance 520 300 PT 14.0 SEC (12.0-15.0) 08/31/17 14:45 INR 1.06 (0.83-1.16) 08/31/17 14:45 Physical Exam - Physical Exam General Appearance: alert, no apparent distress Respiratory: No respiratory distress, No accessory muscle use Skin: normal color, warm/dry Extremities: No pedal edema Neuro/Psych: alert, disoriented to place, disoriented to time ICD10 Worksheet Patient Problems: Problems Problem Status Onset Cervical strain Acute Dehydration Acute Elevated troponin Acute Head injury Acute Hypoxemia Acute Nausea, vomiting, and diarrhea Acute Palliative care encounter Acute Pancreatitis Acute Pneumonia Acute Pulmonary embolus Acute Toe infection Acute
--- NOTE | 2017-09-01 15:26 | ASMTCMCOM ---
CM Note CM Note Notes: Pt had surgery for hip fracture sustained after a fall. Pt has history of abdominal aortic aneurysm, atrial fibrillation hypertension and type 2 diabetes. PT/OT recs are pending. H&P states pt lives w . Pt friend Velia is POA [phone]. Palliative order in. CM to follow for d/c planning. Date Signed: 09/01/2017 03:26 PM Electronically Signed By:YANNICK Gandhi
--- NOTE | 2017-09-01 16:57 | SOAPPROG ---
SOAP Progress Note Assessment/Plan: Assessment: s/p L hip swati 08/31 Plan: wbat ant hip precautions dressing cdi will need placement obtaining L ankle films due to swelling in pain 09/01/17 16:55 Subjective: complains of hip and ankle pain on left Objective: Vital Signs Temp Pulse Resp BP Pulse Ox 37.5 C 91 18 136/59 H 80 L 09/01/17 15:43 09/01/17 15:43 09/01/17 15:43 09/01/17 15:43 09/01/17 15:43 Laboratory Results 09/01/17 04:40 09/01/17 04:40 08/31/17 09/01/17 09/02/17 05:59 05:59 05:59 Intake Total 2370 300 Output Total 1850 Balance 520 300 PT 14.0 SEC (12.0-15.0) 08/31/17 14:45 INR 1.06 (0.83-1.16) 08/31/17 14:45 left hip dressing cdi int/ext rotation of hip is tolerated left ankle ttp over fibula, mild swelling ICD10 Worksheet Patient Problems: Problems Problem Status Onset Cervical strain Acute Dehydration Acute Elevated troponin Acute Head injury Acute Hypoxemia Acute Nausea, vomiting, and diarrhea Acute Palliative care encounter Acute Pancreatitis Acute Pneumonia Acute Pulmonary embolus Acute Toe infection Acute
[2017-09-01] MEDS: OLANZapine DISINTEGR 5 MG TAB PO PRN (18:16)
--- NOTE | 2017-09-01 18:26 | HOSPPROG ---
Hospitalist Progress Note Assessment/Plan: * Hip fracture s/p operative repair -SQ Lovenox * Metabolic encephalopathy - agitated, confused * Hyperkalemia -hold lisinopril -Kayexalate x 1 again today * Hypoxia - refusing to wear O2 -suspect atelectasis * Enlarging AAA - refused endovascular stent -he is aware of risk of imminent if it ruptures * PVD with claudication - refused surgical bypass * Afib -off anticoagulation * h/o PE/DVT * DM II * Difficult melissa placement -start Flomax - consider voiding trial 1-2 days Patient refusing medical interventions, consistent with his decisions in the past. He is now confused and questionably decisional. I think DNR would be more appropriate given his pattern of medical decision making. Palliative care consulted - they know him from previous admissions. Meeting arranged with patient's significant other in am. Subjective: Repeatedly stating he won't wear O2 and is okay with just dying. Objective: Vital Signs Temp Pulse Resp BP Pulse Ox 37.5 C 91 18 136/59 H 80 L 09/01/17 15:43 09/01/17 15:43 09/01/17 15:43 09/01/17 15:43 09/01/17 15:43 Laboratory Results 09/01/17 04:40 09/01/17 04:40 08/31/17 09/01/17 09/02/17 05:59 05:59 05:59 Intake Total 2370 1800 Output Total 1850 200 Balance 520 1600 PT 14.0 SEC (12.0-15.0) 08/31/17 14:45 INR 1.06 (0.83-1.16) 08/31/17 14:45 CXR viewed, my personal interpretation is - atelectasis Ankle xray - no fracture - Physical Exam Constitutional: no apparent distress, appears nourished, not in pain Cardiovascular: regular rate and rhythym, no murmur, rub, or gallop Respiratory: no respiratory distress, no rales or rhonchi, clear to auscultation Gastrointestinal: normoactive bowel sounds, soft, non-tender abdomen, no palpable masses Skin: no rashes or abrasions, no fluctuance, no induration Psychiatric: encephalopathic, anxious, agitated, poor insight, poor judgement, poor memory, No interacting appropriately ICD10 Worksheet Patient Problems: Problems Problem Status Onset Cervical strain Acute Dehydration Acute Elevated troponin Acute Head injury Acute Hypoxemia Acute Nausea, vomiting, and diarrhea Acute Palliative care encounter Acute Pancreatitis Acute Pneumonia Acute Pulmonary embolus Acute Toe infection Acute
[2017-09-02] MEDS: ACETAMINOPHEN 500 MG TAB PO SCH ×4 (00:11→23:49)
[2017-09-02] MEDS: SENNOSIDES/DOCUSATE SODIUM TAB PO SCH ×3 (00:11→23:49)
[2017-09-02] MEDS: oxyCODONE IR 5 MG TAB PO PRN (08:06)
[2017-09-02] MEDS: TAMSULOSIN HCL 0.4 MG CAP PO SCH (08:06)
[2017-09-02] MEDS: ENOXAPARIN 40 MG/0.4 ML SYR SC SCH (08:16)
[2017-09-02 10:13] LABS: PLATELET COUNT 90 10^3/uL (150-400)
--- NOTE | 2017-09-02 13:09 | PDPCPN ---
Palliative Care Progress Note Assessment/Plan: HPI: Adams Cameron is a 82 with PMH AAA, a fib, and HTN [facility]. S/p surgery for repair. Overnight he has been refusing some medical interventions at times with o2 sat 80% on room air. Palliative care consulted for complex medical decision making. Met with Velia outside of the room. Adams had received some oxy this am and was more confused and sleeping. Velia spoke about Adams not typically doing well with new things meaning broken bone, melissa, being on pain medications, wearing oxygen, etc as reasons why he is sometimes resistant to medical interventions and treatment. She states his personality has always been taking things slowly and not being rushed into any decisions or situation. He does very well in his routine at home but often has trouble with focusing, decisions , and learning new information when not in this environment. She states he is very health conscious in his food choices and feels he would want medical interventions including CPR to see if he would recover. We explained CPR and the unlikelihood of success. She states if he was dependent on machines and it were to be permanent then she would make the decision to move to comfort measures. She states for now Adams would want to continue with aggressive medical care in hopes of improvement and being back at home. Assessment: Physical: - Pain: left hip fx - tylenol scheduled - oxy or dilaudid PRN - recommend reducing oxy to 5 mg to see if this helps with confusion - ice to left hip - falls/weakness - PT/OT - fall precautions - constipation - at risk if using opiates - bowel regimen with senna and colace Emotional/psychological: Acute confusion: Likely 2/2 medications and surgery - maintain normal routines - zprexa for severe agitation Advanced Care Planning: Is patient decisional?: No Code Status: Full MD POA: does not have an official MDPOA or proxy. he has stated in the past he would want Velia to make decisions for himself. Plan: Will continue to follow and obtain MDPOA and/or MOST form for more clarification on future admissions. Subjective: sleeping, awakens to name Objective: Vital Signs Temp Pulse Resp BP Pulse Ox 38.0 C 88 16 107/59 L 93 09/02/17 11:47 09/02/17 11:47 09/02/17 11:47 09/02/17 11:47 09/02/17 11:47 Laboratory Results 09/02/17 09:50 09/02/17 09:50 09/01/17 09/02/17 09/03/17 05:59 05:59 05:59 Intake Total 2370 2280 Output Total 1850 500 Balance 520 1780 PT 14.0 SEC (12.0-15.0) 08/31/17 14:45 INR 1.06 (0.83-1.16) 08/31/17 14:45 Physical Exam - Physical Exam General Appearance: no apparent distress, other (sleeping) Respiratory: No respiratory distress, No accessory muscle use Skin: normal color, warm/dry Extremities: No pedal edema Neuro/Psych: other (sleeping, awakens to name but confused) ICD10 Worksheet Patient Problems: Problems Problem Status Onset Cervical strain Acute Dehydration Acute Elevated troponin Acute Head injury Acute Hypoxemia Acute Nausea, vomiting, and diarrhea Acute Palliative care encounter Acute Pancreatitis Acute Pneumonia Acute Pulmonary embolus Acute Toe infection Acute
--- NOTE | 2017-09-02 13:40 | SOAPPROG ---
SOAP Progress Note Assessment/Plan: Assessment: s/p L hip swati 08/31 Plan: wbat ant hip precautions dressing cdi will need placement L ankle films negative 09/01/17 16:55 09/02/17 13:39 Subjective: pain in hip Objective: Vital Signs Temp Pulse Resp BP Pulse Ox 38.0 C 88 16 107/59 L 93 09/02/17 11:47 09/02/17 11:47 09/02/17 11:47 09/02/17 11:47 09/02/17 11:47 Laboratory Results 09/02/17 09:50 09/02/17 09:50 09/01/17 09/02/17 09/03/17 05:59 05:59 05:59 Intake Total 2370 2280 Output Total 1850 500 Balance 520 1780 PT 14.0 SEC (12.0-15.0) 08/31/17 14:45 INR 1.06 (0.83-1.16) 08/31/17 14:45 dressing dry ICD10 Worksheet Patient Problems: Problems Problem Status Onset Cervical strain Acute Dehydration Acute Elevated troponin Acute Head injury Acute Hypoxemia Acute Nausea, vomiting, and diarrhea Acute Palliative care encounter Acute Pancreatitis Acute Pneumonia Acute Pulmonary embolus Acute Toe infection Acute
--- NOTE | 2017-09-02 15:31 | ASMTCMCOM ---
CM Note CM Note Notes: The palliative care team is assisting pt with complex medical decision making and to formalize a medical decision maker. Pt friend Velia is not pt POA at this time. Referrals sent to [facility]; accepts and FM still pending CM to follow. D/c plan of care: most likely SNF Date Signed: 09/02/2017 03:30 PM Electronically Signed By:YANNICK Gandhi
--- NOTE | 2017-09-02 19:53 | HOSPPROG ---
Hospitalist Progress Note Assessment/Plan: * Hip fracture s/p operative repair -SQ Lovenox * Metabolic encephalopathy * Hyperkalemia -hold lisinopril * Hypoxia -suspect post-op atelectasis * Enlarging AAA - refused endovascular stent - enlarging - now > 6cm -he is aware of risk of imminent if it ruptures * PVD with claudication - refused surgical bypass * Afib -rate okay -off anticoagulation - I assume due to fall risk * h/o PE/DVT * DM II * Difficult melissa placement -start Flomax - consider voiding trial 1-2 days Subjective: No new complaints Objective: Vital Signs Temp Pulse Resp BP Pulse Ox 37.3 C 71 17 111/59 L 93 09/02/17 19:24 09/02/17 19:24 09/02/17 19:24 09/02/17 19:24 09/02/17 19:24 Laboratory Results 09/02/17 09:50 09/02/17 09:50 09/01/17 09/02/17 09/03/17 05:59 05:59 05:59 Intake Total 2370 2280 100 Output Total 1850 500 Balance 520 1780 100 PT 14.0 SEC (12.0-15.0) 08/31/17 14:45 INR 1.06 (0.83-1.16) 08/31/17 14:45 - Physical Exam Constitutional: no apparent distress, appears nourished, not in pain Cardiovascular: regular rate and rhythym, no murmur, rub, or gallop Respiratory: no respiratory distress, no rales or rhonchi, clear to auscultation Gastrointestinal: normoactive bowel sounds, soft, non-tender abdomen, no palpable masses Skin: no rashes or abrasions, no fluctuance, no induration Neurologic: AAOx3 Psychiatric: interacting appropriately, agitated, poor insight, poor judgement, other (suspicious) ICD10 Worksheet Patient Problems: Problems Problem Status Onset Cervical strain Acute Dehydration Acute Elevated troponin Acute Head injury Acute Hypoxemia Acute Nausea, vomiting, and diarrhea Acute Palliative care encounter Acute Pancreatitis Acute Pneumonia Acute Pulmonary embolus Acute Toe infection Acute
[2017-09-02] MEDS: OLANZapine DISINTEGR 5 MG TAB PO PRN (23:48)
[2017-09-03 04:52] LABS: PLATELET COUNT 92 10^3/uL (150-400)
[2017-09-03] MEDS: ACETAMINOPHEN 500 MG TAB PO SCH ×3 (05:48→23:31)
[2017-09-03] MEDS: oxyCODONE IR 5 MG TAB PO PRN ×2 (09:42→14:02)
[2017-09-03] MEDS: TAMSULOSIN HCL 0.4 MG CAP PO SCH (09:45)
[2017-09-03] MEDS: ENOXAPARIN 40 MG/0.4 ML SYR SC SCH (09:45)
[2017-09-03] MEDS: SENNOSIDES/DOCUSATE SODIUM TAB PO SCH ×2 (09:45→23:36)
--- NOTE | 2017-09-03 13:42 | WOCRNPDOC ---
WOCRN Advanced Assessment Note - Skin Integrity Problem, Advanced Assess Left Lower Proximal Leg Pressure Injury Dressing Type: Open to Air Cassi Wound Tissue: Erythema Wound Bed Color: Purple, Red Wound Bed Constitution: Intact Serous Filled Blister Site Measurement - Head-to-Toe Length X Width X Depth (cm): 35x2x0 Pressure Injury Stage: Deep Tissue Injury (DTI), Mosquito Sprayer Related Pressure Injury (TEDs) Pressure Injury Present on Admit: No Skin Integrity Problem Comment: Evolving DTI. Wound care will follow. TEDs are off. Please do not reapply TEDS to this area. Left Anterior Ankle Pressure Injury Dressing Type: Open to Air Site Measurement - Head-to-Toe Length X Width X Depth (cm): 1x1x0 Pressure Injury Stage: Deep Tissue Injury (DTI), Mosquito Sprayer Related Pressure Injury (TEDs ) Pressure Injury Present on Admit: No Left Lateral Ankle Pressure Injury Dressing Type: Open to Air Site Measurement - Head-to-Toe Length X Width X Depth (cm): 0.5x0.5x0 Pressure Injury Stage: Stage 1, Mosquito Sprayer Related Pressure Injury Pressure Injury Present on Admit: No Left Heel Pressure Injury Dressing Type: Open to Air Site Measurement - Head-to-Toe Length X Width X Depth (cm): 3.5x5x0 Pressure Injury Stage: Deep Tissue Injury (DTI) Pressure Injury Present on Admit: No Skin Integrity Problem Comment: Please offload heels at all times. Right Heel Pressure Injury Dressing Type: Open to Air Site Measurement - Head-to-Toe Length X Width X Depth (cm): 5x4x0 Pressure Injury Stage: Deep Tissue Injury (DTI) Pressure Injury Present on Admit: No Skin Integrity Problem Comment: Reported to Lexx Campos Cheri RN's. Please offload at all times. Patient may benefit from bariatric bed.
[2017-09-03] MEDS: OLANZapine 2.5 MG TAB PO SCH (14:00)
--- NOTE | 2017-09-03 17:00 | SOAPPROG ---
SOAP Progress Note Assessment/Plan: Assessment: s/p L hip swati 08/31 Plan: wbat ant hip precautions dressing cdi will need placement 09/01/17 16:55 09/02/17 13:39 09/03/17 16:57 Subjective: pain improved Objective: Vital Signs Temp Pulse Resp BP Pulse Ox 36.6 C 79 16 98/72 L 98 09/03/17 11:25 09/03/17 16:00 09/03/17 16:00 09/03/17 16:00 09/03/17 16:00 Laboratory Results 09/03/17 04:44 09/03/17 04:44 09/02/17 09/03/17 09/04/17 05:59 05:59 05:59 Intake Total 2280 400 700 Output Total 500 700 250 Balance 1780 -300 450 PT 14.0 SEC (12.0-15.0) 08/31/17 14:45 INR 1.06 (0.83-1.16) 08/31/17 14:45 sit up in chair ICD10 Worksheet Patient Problems: Problems Problem Status Onset Cervical strain Acute Dehydration Acute Elevated troponin Acute Head injury Acute Hypoxemia Acute Nausea, vomiting, and diarrhea Acute Palliative care encounter Acute Pancreatitis Acute Pneumonia Acute Pulmonary embolus Acute Toe infection Acute
--- NOTE | 2017-09-03 20:01 | HOSPPROG ---
Hospitalist Progress Note Assessment/Plan: * Hip fracture s/p operative repair -SQ Lovenox * Metabolic encephalopathy * Hyperkalemia -hold lisinopril * Hypoxia -suspect post-op atelectasis * Enlarging AAA - refused endovascular stent - enlarging - now > 6cm -he is aware of risk of imminent if it ruptures * PVD with claudication - refused surgical bypass * Afib -rate okay -off anticoagulation - I assume due to fall risk * h/o PE/DVT * DM II * Difficult melissa placement -started Flomax -remove melissa - voiding trial * Paranoia/psychosis -refusing multiple interventions including O2, PT/OT, IVs and blood draws -very suspicious - stating we just want to "take his money" -has not yet gotten out of bed post surgery - refuses -starting to get pressure ulcers as he refuses turning -noted but nursing to be much more compliant after zyprexa dosing -? undiagnosed psych -start low dose scheduled zyprexa - complying with above therapy essential for his recovery -discussed possible DNR, he continues to desire FULL CODE, despite frequently stating "just let me " -difficult situation as he has many imminently life threatening possibilities , including massive AAA, O2 sats run low 70s RA -his appointed decision maker - Velia - also states FULL CORE are his ongoing wishes High risk Subjective: Hasn't gotten out of bed since surgery Objective: Vital Signs Temp Pulse Resp BP Pulse Ox 37.1 C 75 17 87/69 L 93 09/03/17 19:50 09/03/17 19:50 09/03/17 19:50 09/03/17 19:50 09/03/17 19:50 Laboratory Results 09/03/17 04:44 09/03/17 04:44 09/02/17 09/03/17 09/04/17 05:59 05:59 05:59 Intake Total 2280 400 1250 Output Total 500 700 250 Balance 1780 -300 1000 PT 14.0 SEC (12.0-15.0) 08/31/17 14:45 INR 1.06 (0.83-1.16) 08/31/17 14:45 - Physical Exam Constitutional: no apparent distress, appears nourished, not in pain Cardiovascular: regular rate and rhythym, no murmur, rub, or gallop Respiratory: no respiratory distress, no rales or rhonchi, clear to auscultation Gastrointestinal: normoactive bowel sounds, soft, non-tender abdomen, no palpable masses Skin: no rashes or abrasions, no fluctuance, no induration Psychiatric: anxious, flat affect, agitated, poor insight, poor judgement, No interacting appropriately, No thought process linear ICD10 Worksheet Patient Problems: Problems Problem Status Onset Cervical strain Acute Dehydration Acute Elevated troponin Acute Head injury Acute Hypoxemia Acute Nausea, vomiting, and diarrhea Acute Palliative care encounter Acute Pancreatitis Acute Pneumonia Acute Pulmonary embolus Acute Toe infection Acute
[2017-09-03] MEDS ORDERED: OLANZapine DISINTEGR 5 MG TAB PO SCH (21:00)
[2017-09-04] MEDS: ACETAMINOPHEN 500 MG TAB PO SCH ×4 (05:00→20:47)
--- NOTE | 2017-09-04 09:28 | WOCRNPDOC ---
WOCRN Advanced Assessment Note - Skin Integrity Problem, Advanced Assess Left Lower Proximal Leg Pressure Injury Dressing Type: Open to Air Pressure Injury Stage: Deep Tissue Injury (DTI) Pressure Injury Present on Admit: No Skin Integrity Problem Comment: Evolving. Not much change since yesterday. Will recheck next week. Left Anterior Ankle Pressure Injury Dressing Type: Allevyn Life Integumentary Issue Intervention: Visualized Under Dressing Pressure Injury Stage: Deep Tissue Injury (DTI) Pressure Injury Present on Admit: No Skin Integrity Problem Comment: Skin still intact. Color turning yellowish green /black at base. Left Heel Pressure Injury Dressing Type: Allevyn Life Dressing Description: Clean/Dry, Intact Exudate Amount: None Wound Bed Constitution: Intact Serous Filled Blister Pressure Injury Stage: Deep Tissue Injury (DTI) Pressure Injury Present on Admit: No Right Heel Pressure Injury Dressing Type: Allevyn Life Dressing Description: Clean/Dry, Intact Wound Bed Constitution: Intact Serous Filled Blister Pressure Injury Stage: Deep Tissue Injury (DTI) Pressure Injury Present on Admit: No
[2017-09-04] MEDS: SENNOSIDES/DOCUSATE SODIUM TAB PO SCH ×2 (09:33→23:03)
[2017-09-04] MEDS: TAMSULOSIN HCL 0.4 MG CAP PO SCH (10:07)
[2017-09-04] MEDS: OLANZapine 2.5 MG TAB PO SCH ×2 (10:07→20:47)
[2017-09-04] MEDS: ENOXAPARIN 40 MG/0.4 ML SYR SC SCH (10:08)
--- NOTE | 2017-09-04 17:07 | ASMTCMCOM ---
CM Note CM Note Notes: [facility] has no bed availability. Updates sent to [facility], still able to accept pt. Behavioral health RN Mary Juarez consulted w pt and friend Velia today (assessment note pending). CM to follow. Date Signed: 09/04/2017 05:06 PM Electronically Signed By:YANNICK Gandhi
--- NOTE | 2017-09-04 17:16 | SOAPPROG ---
SOAP Progress Note Assessment/Plan: Assessment: s/p L hip swati 08/31 Plan: Confused wbat ant hip precautions dressing cdi will need placement 09/01/17 16:55 09/02/17 13:39 09/03/17 16:57 09/04/17 17:15 Subjective: confused Objective: Vital Signs Temp Pulse Resp BP Pulse Ox 37.1 C 77 16 137/72 H 91 L 09/04/17 16:00 09/04/17 16:00 09/04/17 16:00 09/04/17 16:00 09/04/17 16:00 Laboratory Results 09/04/17 04:20 09/04/17 04:20 09/03/17 09/04/17 09/05/17 05:59 05:59 05:59 Intake Total 400 1450 700 Output Total 700 950 Balance -300 500 700 PT 14.0 SEC (12.0-15.0) 08/31/17 14:45 INR 1.06 (0.83-1.16) 08/31/17 14:45 dressing dry ICD10 Worksheet Patient Problems: Problems Problem Status Onset Cervical strain Acute Dehydration Acute Elevated troponin Acute Head injury Acute Hypoxemia Acute Nausea, vomiting, and diarrhea Acute Palliative care encounter Acute Pancreatitis Acute Pneumonia Acute Pulmonary embolus Acute Toe infection Acute
--- NOTE | 2017-09-04 17:36 | HOSPPROG ---
Hospitalist Progress Note Assessment/Plan: * Hip fracture s/p operative repair -SQ Lovenox * Metabolic encephalopathy * Hyperkalemia -hold lisinopril * Hypoxia -suspect post-op atelectasis * Enlarging AAA - refused endovascular stent - enlarging - now > 6cm -he is aware of risk of imminent if it ruptures * PVD with claudication - refused surgical bypass * Afib -rate okay -off anticoagulation - I assume due to fall risk * h/o PE/DVT * DM II * Severe cataract - very poor vision -patient still "considering" surgery * Urinary retention - unable to urinate since melissa DC -Flomax + proscar -refuses melissa replacement - agrees to melissa if unable to void by tomorrow morning -suspect needs DC with melissa - voiding trial 1-2 weeks (traumatic melissa insertion) * Anxiety -discussed at length with Velia CARSON and Mary Juarez -patient's quality of life is high and does very well in his own apartment -per Velia - patient is of limited intelligence - does better with simple communication -after discussion with Mary Juarez - 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 -does better, with more organized thought on Zyprexa -continue low dose Zyprexa 2.5mg BID for anxiety management - Velia/Mary in agreement Subjective: Unable to void since straight cath at 2:00am for 700cc Objective: Vital Signs Temp Pulse Resp BP Pulse Ox 37.1 C 77 16 137/72 H 91 L 09/04/17 16:00 09/04/17 16:00 09/04/17 16:00 09/04/17 16:00 09/04/17 16:00 Laboratory Results 09/04/17 04:20 09/04/17 04:20 09/03/17 09/04/17 09/05/17 05:59 05:59 05:59 Intake Total 400 1450 700 Output Total 700 950 Balance -300 500 700 PT 14.0 SEC (12.0-15.0) 08/31/17 14:45 INR 1.06 (0.83-1.16) 08/31/17 14:45 - Time Spent With Patient Time Spent with Patient: greater than 35 minutes Time Spent with Patient: Greater than 35 minutes spent on this patients care, greater than 50% of time spent counseling, educating, and coordinating care regarding the above mentioned plan. - Physical Exam Constitutional: no apparent distress, appears nourished, not in pain Cardiovascular: regular rate and rhythym, no murmur, rub, or gallop Respiratory: no respiratory distress, no rales or rhonchi, clear to auscultation Gastrointestinal: normoactive bowel sounds, soft, non-tender abdomen, no palpable masses Skin: no rashes or abrasions, no fluctuance, no induration Neurologic: AAOx3 Psychiatric: thought process linear, other (much better today, sitting in chair , able to have normal discussion), No encephalopathic, No anxious, No agitated ICD10 Worksheet Patient Problems: Problems Problem Status Onset Cervical strain Acute Dehydration Acute Elevated troponin Acute Head injury Acute Hypoxemia Acute Nausea, vomiting, and diarrhea Acute Palliative care encounter Acute Pancreatitis Acute Pneumonia Acute Pulmonary embolus Acute Toe infection Acute
[2017-09-05] MEDS: ACETAMINOPHEN 500 MG TAB PO SCH ×2 (05:27→15:28)
[2017-09-05 07:38] VITALS: PULSE 78; O2SAT 90
[2017-09-05] MEDS ORDERED: FINASTERIDE 5 MG TAB PO SCH (09:00)
[2017-09-05] MEDS: OLANZapine 2.5 MG TAB PO SCH (10:05)
[2017-09-05] MEDS: ENOXAPARIN 40 MG/0.4 ML SYR SC SCH (10:06)
[2017-09-05] MEDS: TAMSULOSIN HCL 0.4 MG CAP PO SCH (10:06)
--- NOTE | 2017-09-05 10:15 | PDIAF ---
- Diagnosis Diagnosis: hip fracture, acute urinary retention Code Status: Full Code - Medication Management Discharge Medications: Medications to Continue on Transfer amLODIPine BESYLATE [Norvasc 5 mg (*)] 5 mg PO DAILY #30 tab 08/04/16 [Last Taken 08/30/17] Aspirin [Aspirin 81mg (*)] 81 mg PO DAILY #30 tab 09/05/17 [Last Taken Unknown] Enoxaparin [Lovenox 40 MG (*)] 40 mg SC DAILY #10 syr 09/05/17 [Last Taken Unknown] Finasteride [Proscar 5 MG (*)] 5 mg PO DAILY #30 tab 09/05/17 [Last Taken Unknown] OLANZapine [ZyPREXA 2.5 mg (*)] 2.5 mg PO BID #60 tab 09/05/17 [Last Taken Unknown] Tamsulosin HCl [Flomax 0.4 MG (*)] 0.4 mg PO DAILY #30 cap 09/05/17 [Last Taken Unknown] Discharge Medications: Refer to the Discharge Home Medication list for PRN reason. - Orders Services needed: Master Sheriff Deputy, Physical Therapy, Occupational Therapy Diet Recommendation: no restrictions on diet Le: Yes (voiding trial 1-2 weeks) Additional: Discontinue Lovenox after 10 days - Follow Up Care Current Providers and Referrals: Patient,NotPresent [Unknown] - As per Instructions Jf Choi MD [Medical Doctor] - follow up in 10 days
[2017-09-05] MEDS: SENNOSIDES/DOCUSATE SODIUM TAB PO SCH (10:54)
--- NOTE | 2017-09-05 12:23 | ASMTCMCOM ---
CM Note CM Note Notes: Pt medically stable for d/c to [facility]. Ambulance scheduled by Mona haney for 1600. PCS completed. Orders sent in [employer]. Pt christina Gunn notified. Date Signed: 09/05/2017 12:22 PM Electronically Signed By:YANNCIK Gandhi
--- NOTE | 2017-09-05 14:07 | SOAPPROG ---
SOAP Progress Note Assessment/Plan: Assessment: s/p L hip swati 08/31 Plan: Confused wbat ant hip precautions dressing cdi lovenox for dvt prophalaxsis for 2 weeks total then ASA 325mg po qday 09/01/17 16:55 09/02/17 13:39 09/03/17 16:57 09/04/17 17:15 09/05/17 14:06 Subjective: confused Objective: Vital Signs Temp Pulse Resp BP Pulse Ox 36.8 C 78 14 145/72 H 90 L 09/05/17 07:36 09/05/17 07:36 09/05/17 07:36 09/05/17 07:36 09/05/17 07:36 Laboratory Results 09/04/17 04:20 09/04/17 04:20 09/04/17 09/05/17 09/06/17 05:59 05:59 05:59 Intake Total 1450 900 Output Total 950 1750 Balance 500 -850 PT 14.0 SEC (12.0-15.0) 08/31/17 14:45 INR 1.06 (0.83-1.16) 08/31/17 14:45 dressing cdi ICD10 Worksheet Patient Problems: Problems Problem Status Onset Cervical strain Acute Dehydration Acute Elevated troponin Acute Head injury Acute Hypoxemia Acute Nausea, vomiting, and diarrhea Acute Palliative care encounter Acute Pancreatitis Acute Pneumonia Acute Pulmonary embolus Acute Toe infection Acute
[2017-09-05 15:47] VITALS: BP 134/63; RESP 17; TEMP 98.7
--- NOTE | 2017-09-05 16:42 | ASDISCHSUM ---
Discharge Information Plan Status:SNF Medically Cleared to Leave: Discharge Date:09/05/2017 04:05 PM D/C Disposition:Senior Living Facility ADT D/C Disposition:Senior Living Facility Projected Discharge Date:09/04/2017 11:00 AM Transportation at D/C:ALS/BLS Discharge Delay Reason: Follow-Up Date:09/04/2017 11:00 AM Discharge Slot: Final Diagnosis: Placement Information Referral Type:*Snf/SNF Referral ID:[id number] Provider Name:[facility] Address 1:[address] Address 2: City:[place] Selection Factors: State:[place] Patient Contact Information Contact Name:BIANCA Relationship:Friend Address: Work Phone: [facility]:HIRAM Alternate Phone: [facility]/Zip Code:[place] Email: Financial Information Financial Class: Primary Plan Desc:MEDICARE INPATIENT Primary Plan Number:[id number] Secondary Plan Desc: Secondary Plan Number: Assessment Information [facility] CM Progress Note CM Note CM Note Notes: Pt had surgery for hip fracture sustained after a fall. Pt has history of abdominal aortic aneurysm, atrial fibrillation hypertension and type 2 diabetes. PT/OT recs are pending. H&P states pt lives w . Pt friend Velia is POA [phone]. Palliative order in. to follow for d/c planning. Date Signed: 09/01/2017 03:26 PM Electronically Signed By:YANNICK Gandhi [facility] CM Progress Note CM Note CM Note Notes: The palliative care team is assisting pt with complex medical decision making and to formalize a medical decision maker. Pt christina Gunn is not pt POA at this time. Referrals sent to [facility] and [facility]; accepts and FM still pending CM to follow. D/c plan of care: most likely SNF Date Signed: 09/02/2017 03:30 PM Electronically Signed By:YANNICK Gandhi [facility] CM Progress Note CM Note CM Note Notes: [facility] has no bed availability. Updates sent to [facility], still able to accept pt. Behavioral health RN Mary haney pt and christina Gunn today (assessment note pending). CM to follow. Date Signed: 09/04/2017 05:06 PM Electronically Signed By:YANNICK Gandhi [facility] CM Progress Note CM Note CM Note Notes: Pt medically stable for d/c to [facility]. Ambulance scheduled by Mona haney for 1600. PCS completed. Orders sent in [employer]. Pt christina Gunn notified. Date Signed: 09/05/2017 12:22 PM Electronically Signed By:YANNICK Gandhi Intervention Information Intervention Type:*Incorrect Registration Date of Service:08/31/2017 05:19 PM Patient Type:Inpatient Staff Member:DREA Sanchez, Hortencia Hours:0.25 Discipline: Severity:1 (0-1 Hours) Comment:Registered observation; written admit order inpatient status. Intervention Type:*IM-Signed Date of Service:09/05/2017 10:50 AM Patient Type:Inpatient Staff Member:Antionette Lomeli Hours: Discipline: Severity: Comment:
--- NOTE | 2017-09-05 17:47 | GDS ---
[f rep st] DISCHARGE SUMMARY DISCHARGE DIAGNOSES: 1. Hip fracture, status post operative repair. 2. Metabolic encephalopathy. 3. Hyperkalemia due to lisinopril. 4. Greater than 6 cm abdominal aortic aneurysm. The patient refuses endovascular stent. 5. Peripheral vascular disease with claudication. Refuses surgical bypass. 6. Atrial fibrillation. 7. History of pulmonary embolism and deep venous thrombosis. 8. Diabetes, type 2. 9. Severe cataracts with very poor vision, refusing surgery. 10. Benign prostatic hyperplasia with urinary retention requiring Le catheter. 11. Anxiety. HISTORY: The patient is an 82-year-old male who has extensive past medical history including a massive AAA and peripheral vascular disease with claudication for which he has refused any type of surgery. He is aware of his imminent if this AAA were to rupture. He also has severe cataracts with poor vision and has not had surgical correction of this as well. He lives independently and does have frequent falls to the point that his anticoagulation for atrial fibrillation has been discontinued as it is too high risk. He presented to the hospital after a fall and was found to have a hip fracture for which he underwent operative repair. His postoperative course was very difficult mostly due to his agitation and anxiety. He would have periods of confusion but also does still have decisional capacity when he is doing well. He spent days in bed absolutely refusing PT, OT, or refusing to allow the nurses to turn him. He did develop some early pressure ulcerations due to this. His power of banking attorney, a close friend, was at bedside, and when she is present he is more compliant. I had aMry Juarez see him in consultation to discuss strategies to improve compliance and his ability to proceed positively regarding his health care. Palliative Care also saw him and tried to clarify his goals and he continues to desire full code status despite refusing some very essential procedures. 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 He did get Zyprexa here in the hospital and it was noted that his thought processes were more organized while he was on this medication. Per Mary, Zyprexa does have antianxiety and antidepressant affects and she recommended 2.5 mg p.o. b.i.d. in an ongoing manner for anxiety management. This was discussed with his friend , and she is in agreement. He will be discharged to rehab on this medication. The patient's Le catheter placement prior to surgery was very difficult due to BPH. He was started on Flomax and we did do a voiding trial and attempted to discontinue Le catheter, but urinary retention returned. The patient refused the Le catheter to be reinserted for 24 hours, but eventually did agree and the Le is now replaced with greater than 1 L of urine at that time. He will be discharged to snf with the Le in place and recommend a voiding trial in 1-2 weeks. If that fails, he will likely need Urology followup. I am starting him on Flomax and Proscar. DISCHARGE MEDICATIONS: Please see computerized record for full detailed list. New medications: 1. Lovenox 40 mg subcu daily for 10 days. 2. Proscar 5 mg p.o. daily. 3. Zyprexa 2 mg p.o. twice daily. 4. Flomax 0.4 mg p.o. daily. 5. Aspirin 81 mg p.o. daily. Discontinued medications: Lisinopril 20 mg p.o. daily as the patient presented with hyperkalemia. ADDITIONAL DISCHARGE INSTRUCTIONS: 1. Follow up with Dr. Choi, Orthopedic surgery, regarding hip fracture. 2. The patient is transferred to snf facility for rehabilitation. Greater than 30 minutes' time spent arranging this discharge. Patient was seen and examined by me on the day of discharge. /[id number]/MODL MTDD
== END 2017-09-05 16:05 | DRG 469 ==
LOC: EDUNIT# → OBSVTOIN 17:19 → F3N 17:19
PROVIDERS: ADMIT Internal Medicine; ATTEND Internal Medicine
PROC: 0SRB0JZ Replacement of Left Hip Joint with Synthetic Substitute, Open Approach (ICD-10-PCS; principal; 2017-08-31 19:30)
DX: S72.002A Fracture of unspecified part of neck of left femur, initial encounter for closed fracture (principal); G93.41 Metabolic encephalopathy; E87.5 Hyperkalemia; T46.4X5A Adverse effect of angiotensin-converting-enzyme inhibitors, initial encounter; I71.4 Abdominal aortic aneurysm, without rupture; I73.9 Peripheral vascular disease, unspecified; I48.91 Unspecified atrial fibrillation; Z86.711 Personal history of pulmonary embolism; Z86.718 Personal history of other venous thrombosis and embolism; E11.9 Type 2 diabetes mellitus without complications; H26.8 Other specified cataract; N40.1 Benign prostatic hyperplasia with lower urinary tract symptoms; R33.9 Retention of urine, unspecified; F41.9 Anxiety disorder, unspecified; Z87.891 Personal history of nicotine dependence; W07.XXXA Fall from chair, initial encounter; Y92.013 Bedroom of single-family (private) house as the place of occurrence of the external cause; I10 Essential (primary) hypertension; L89.899 Pressure ulcer of other site, unspecified stage; L89.529 Pressure ulcer of left ankle, unspecified stage; L89.629 Pressure ulcer of left heel, unspecified stage; L89.619 Pressure ulcer of right heel, unspecified stage
CPT/HCPCS: 92523-GN; 97163-GP; 97167-GO; 97530-GP; 97535-GO; G8978-GP-CM; G8979-GP-CK; G8987-GO-CM; G8988-GO-CK; G9168-GN-CJ; G9169-GN-CJ; J0690; J1100; J1170; J1650; J1940; J2370; J2405; J2704; J3010

== ENCOUNTER 2017-09-06 06:35 | Inpatient (IN) | payer OTHER ==
--- NOTE | 2017-09-06 06:56 | CPEKG ---
Heart Rate: 77 RR Interval: 779 P-R Interval: 224 QRSD Interval: 106 QT Interval: 452 QTC Interval: 512 P [place]: 260 QRS [place]: -56 T Wave [place]: -74 EKG Severity - ABNORMAL ECG - EKG Impression: Atrial flutter Electronically Signed By: John Boyer 08-Sep-2017 06:10:27
[2017-09-06 07:05] LABS: PLATELET COUNT 176 10^3/uL (150-400)
--- NOTE | 2017-09-06 07:19 | EDPHY ---
HPI/HX/ROS/PE/MDM Narrative: CHIEF COMPLAINT: "I feel like shit" HPI: The patient is an 82 y/o male with extensive past medical history including 6cm AAA, peripheral vascular disease, diabetes, and recent hip fracture with repair 6 days ago. He was discharged from the hospital to [facility] last night and returns today complaining of nausea, vomiting, and chills onset this morning upon waking. He initially felt nauseated, then developed a "burning acid" sensation in his throat. This was followed by chills when standing and then vomiting. He has mild associated epigastric discomfort now. There is some question of a productive cough for some time, but onset is unclear. Normal bowel movement this morning. He denies hematemesis, diarrhea, fever, chest pain, dyspnea. REVIEW OF SYSTEMS: Aside from elements discussed in the HPI, a comprehensive 10-point review of systems was reviewed and is negative. PMH: 1. Atrial fibrillation 2. 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 Peripheral vascular disease with claudication 4. Abdominal aortic aneurysm, greater than 6cm - followed by Dr. Dietrich 5. PE and DVT previously chronic anticoagulation, discontinued due to fall risk 6. Hypertension 7. Type 2 diabetes 8. Severe cataracts with poor vision 9. BPH with urinary retention requiring catheter. 10. Hip fracture with repair 08/31/17 Prior medical records reviewed including admission 08/31/17 for hip fracture. SOCIAL HISTORY: Lives independently prior to recent fracture, now at [facility]. Former heavy smoker. . PHYSICAL EXAM: General:Patient is alert, in no acute distress. Occasionally vomiting. Head: Normocephalic, atraumatic. ENT:Eyes are normal to inspection. ENT inspection normal. Neck: Normal inspection. Full range of motion. Respiratory:No respiratory distress. Breath sounds normal bilaterally. Cardiovascular: Regular rate and rhythm. Strong peripheral pulses. Normal cap refill. Abdomen:The abdomen is nontender to palpation. There are no peritoneal signs. Skin: Normal color. No rash. Extremities: Toe amputation left foot. Chronic peripheral vascular changes in both feet. Surgical dressing clean and intact on left hip. Otherwise extremities are normal in appearance. Neuro: Normal motor function. Normal sensory function. ED Course: This is an 82 y/o male with significant vasculopathy history who returns to the ED less than 24 hours after discharge to rehab for a hip fracture and repair 6 days ago and presents with nausea, vomiting, and chills. He also has a productive cough of unclear duration and mild epigastric discomfort. His surgical site is dressed with a clean bandage and he is afebrile here. Plan for IV, labs, flu swab, EKG, chest x-ray to rule out infectious causes of his symptoms. 4mg IV Zofran and 1L IV NS ordered for symptoms. The 12 lead EKG was interpreted by myself. Atrial flutter. See hard copy and/or "tracemaster" electronic copy for interpretation. Flu negative. Chest x-ray: likely basilar atelectasis, less likely pneumonia PO challenge Patient's SpO2 dropped to 72% on room air. Given history of aflutter without anticoagulation, I ordered a CTA of the chest to rule out PE. Unfortunately, the patient is refusing this exam. I discussed the issue with him and he states that he feels too sick to undergo the test. I explained the potential risks of refusal. I also recommended admission to the hospital. The patient is unsure what he wants to do. Based on my exam, he clearly lacks decisional capacity at this moment, as he is unable to understand what is being recommended or the risks of refusal. We will admit the patient to the hospital for further workup and treatment. Dr. Valenzuela accepts admission. 0950: Patient has begun vomiting again. 4mg IV Zofran administered. - Data Points Imaging Results: Imaging Impressions Chest X-Ray 09/06/17 06:56 Impression: 1. Findings consistent with airways disease noted. 2. Basilar opacities probably atelectasis rather than pneumonia. 3. Cardiac enlargement without trixie pulmonary edema. Results called and discussed with Hernán Sullivan MD on 09/06/2017 at 8:44 Imaging: Discussed imaging studies w/ call center director Radiologist, I viewed and interpreted images myself Laboratory Results: Laboratory Results 09/06/17 06:40 09/06/17 06:40 09/06/17 09/06/17 09/06/17 07:29 06:40 06:40 WBC 7.25 10^3/uL 10^3/uL (3.80-9.50) RBC 4.34 10^6/uL L 10^6/uL (4.40-6.38) Hgb 12.7 g/dL L g/dL (13.7-17.5) Hct 38.4 % L % (40.0-51.0) MCV 88.5 fL fL (81.5-99.8) MCH 29.3 pg pg (27.9-34.1) MCHC 33.1 g/dL g/dL (32.4-36.7) RDW 14.5 % % (11.5-15.2) Plt Count 176 10^3/uL 10^3/uL (150-400) MPV 10.8 fL fL (8.7-11.7) Neut % (Auto) 84.3 % H % (39.3-74.2) Lymph % (Auto) 7.2 % L % (15.0-45.0) Edmonson % (Auto) 6.8 % % (4.5-13.0) Eos % (Auto) 1.0 % % (0.6-7.6) Baso % (Auto) 0.3 % % (0.3-1.7) Nucleat RBC Rel Count 0.0 % % (0.0-0.2) Absolute Neuts (auto) 6.12 10^3/uL 10^3/uL (1.70-6.50) Absolute Lymphs (auto) 0.52 10^3/uL L 10^3/uL (1.00-3.00) Absolute Monos (auto) 0.49 10^3/uL 10^3/uL (0.30-0.80) Absolute Eos (auto) 0.07 10^3/uL 10^3/uL (0.03-0.40) Absolute Basos (auto) 0.02 10^3/uL 10^3/uL (0.02-0.10) Absolute Nucleated RBC 0.00 10^3/uL 10^3/uL (0-0.01) Immature Gran % 0.4 % % (0.0-1.1) Immature Gran # 0.03 10^3/uL 10^3/uL (0.00-0.10) Sodium 144 mEq/L mEq/L (135-145) Potassium 5.0 mEq/L mEq/L (3.5-5.2) Chloride 103 mEq/L mEq/L (97-110) Carbon Dioxide 27 mEq/l mEq/l (22-31) Anion Gap 14 mEq/L mEq/L (8-16) BUN 44 mg/dL H mg/dL (7-23) Creatinine 1.2 mg/dL mg/dL (0.7-1.3) Estimated GFR 58 Glucose 173 mg/dL H mg/dL (70-100) Calcium 8.8 mg/dL mg/dL (8.5-10.4) Total Bilirubin 1.2 mg/dL mg/dL (0.1-1.4) Conjugated Bilirubin 0.4 mg/dL mg/dL (0.0-0.5) Unconjugated Bilirubin 0.8 mg/dL mg/dL (0.0-1.1) AST 186 IU/L H IU/L (17-59) ALT 140 IU/L H IU/L (21-72) Alkaline Phosphatase 91 IU/L IU/L (38-126) Troponin I 0.027 ng/mL ng/mL (0.000-0.034) Total Protein 6.2 g/dL L g/dL (6.3-8.2) Albumin 3.2 g/dL L g/dL (3.5-5.0) Lipase 424 IU/L H IU/L (23-300) Nasal Influenza A PCR NEGATIVE FOR FLU A (NEGATIVE) Nasal Influenza B PCR NEGATIVE FOR FLU B (NEGATIVE) Medications Given: Discontinued Medications Sodium Chloride (Ns) 1,000 mls @ 0 mls/hr IV EDNOW ONE; Wide Open PRN Reason: Protocol Stop: 09/06/17 07:31 Last Admin: 09/06/17 07:49 Dose: 1,000 mls Ondansetron HCl (Zofran) 4 mg IVP EDNOW ONE Stop: 09/06/17 07:31 Last Admin: 09/06/17 07:50 Dose: 4 mg General Time Seen by Provider: 09/06/17 06:49 Initial Vital Signs: Initial Vital Signs Temperature (C) 36.8 C 09/06/17 06:41 Heart Rate 83 09/06/17 06:41 Respiratory Rate 22 H 09/06/17 06:41 Blood Pressure 156/77 H 09/06/17 06:41 O2 Sat (%) 88 L 09/06/17 06:41 O2 Delivery Mode Room Air O2 (L/minute) 2 Allergies/Adverse Reactions: Tetracyclines Allergy (Intermediate, Verified 09/06/17 06:50) Vomiting azithromycin Allergy (Unknown, Verified 09/06/17 06:50) Itching nitrofurantoin [From Macrobid] Allergy (Unknown, Verified 09/06/17 06:50) nitrofurantoin macrocrystalline [From Macrobid] Allergy (Unknown, Verified 09/06 06:50) Penicillins Allergy (Unknown, Verified 09/06/17 06:50) Sulfa (Sulfonamide Antibiotics) Allergy (Unknown, Verified 09/06/17 06:50) Home Medications: Medication Instructions Recorded amLODIPine BESYLATE [Norvasc 5 mg 5 mg PO DAILY #30 tab 08/04/16 (*)] Aspirin [Aspirin 81mg (*)] 81 mg PO DAILY #30 tab 09/05/17 Enoxaparin [Lovenox 40 MG (*)] 40 mg SC DAILY #10 syr 09/05/17 Finasteride [Proscar 5 MG (*)] 5 mg PO DAILY #30 tab 09/05/17 OLANZapine [ZyPREXA 2.5 mg (*)] 2.5 mg PO BID #60 tab 09/05/17 Tamsulosin HCl [Flomax 0.4 MG (*)] 0.4 mg PO DAILY #30 cap 09/05/17 Lisinopril [Zestril 20 mg (*)] 20 mg PO DAILY 09/06/17 Departure - Departure Disposition: [facility] Inpatient Acute Clinical Impression: Hypoxemia Atrial flutter Qualifiers: Atrial flutter type: typical Qualified Code(s): I48.3 - Typical atrial flutter Vomiting Qualifiers: Vomiting type: unspecified Vomiting Intractability: unspecified Nausea presence : with nausea Qualified Code(s): R11.2 - Nausea with vomiting, unspecified Condition: Fair Report Scribed for: Hernán Sullivan Report Scribed by: Anne Salinas Date of Report: 09/06/17 Time of Report: 06:58 Physician Review and Approval Statement: Portions of this note were transcribed by an ED scribe. I personally performed the history, physical exam, and medical decision making; and confirm the accuracy of the information in the transcribed note.
[2017-09-06] MEDS ORDERED: NS 1,000 ML IV ONE (07:30)
[2017-09-06] MEDS ORDERED: ONDANSETRON 4 MG/2 ML VIAL IVP ONE ×2 (07:30→09:53)
[2017-09-06] MEDS ORDERED: IOPAMIDOL (ISOVUE 370) 100 ML BTL IV ONE ×2 (09:05→18:44)
[2017-09-06] MEDS ORDERED: ONDANSETRON 4 MG/2 ML VIAL IVP PRN (10:15)
[2017-09-06] MEDS ORDERED: PROMETHAZINE HCL 25 MG/ML INJ IVP PRN (10:15)
[2017-09-06] MEDS ORDERED: NS 1,000 ML IV SCH (10:15)
[2017-09-06] MEDS ORDERED: HALOPERIDOL LACT 5 MG/ML INJ IVP PRN (13:36)
[2017-09-06] MEDS ORDERED: LORazepam 2 MG/ML INJ IVP PRN (13:36)
[2017-09-06] MEDS: ACETAMINOPHEN 325 MG TAB PO PRN (14:01)
--- NOTE | 2017-09-06 14:05 | ASMTCMCOM ---
CM Note CM Note Notes: Patient was discharged from [facility] yesterday to [facility] , s/p hip fracture and returns to ER today with c/o N/V and chills. Readmitted at this time to Dr. Valenzuela. I have contacted Alejandro to confirm patient's re admission at the hospital CM to follow with plans to discharge back to [facility] Date Signed: 09/06/2017 02:05 PM Electronically Signed By:Ramya Murphy RN
--- NOTE | 2017-09-06 14:40 | GHP ---
[f rep st] HISTORY AND PHYSICAL DATE OF ADMISSION: 09/06/2017 CHIEF COMPLAINT: Nausea, vomiting, diarrhea. HISTORY: The patient is an 82-year-old male who was just discharged from our hospital yesterday to [facility] after a hip fracture. He underwent operative repair with Dr. Choi. His hospitalization after hip fracture was prolonged due to him refusing PT, OT, refusing to get out of bed, refusing to allow nurses to turn him every 2 hours. He developed some pressure ulcerations. He refused to wear oxygen despite hypoxemia. A Le catheter was placed for surgery and it was a difficult Le due t o BPH and after surgery when we did voiding trials, he failed with recurrence of urinary retention. Eventually, we talked him into replacing the Le catheter which remains at this time. During that hospitalization he did at times try to hit the nurses when they tried to provide care and was, in gen eral, refusing most interventions. Mary Juarez saw him in consultation and provided recommendations. We worked closely with his power of united states attorney, Velia. We started him on a low-dose Zyprexa 2.5 mg p. o. twice daily. Per Mary Juarez he does not have a psychiatric diagnosis, but is just overwhelmed by the situation of being in the hospital worsened by his blindness from cataracts, and Zyprexa was used for its antianxiety properties as it did seem to organize his thoughts and improve his behaviors. A t the time of transfer to [facility], he had calmed down, was up in the chair, agreeable to oxygen, a nd at his baseline mental state. He is felt to have decisional capacity. The patient now returns to the emergency room after only 1 night at [facility] due to nausea, vomitin g, and diarrhea. Reportedly he continues to refuse care in the emergency room. He was spitting at t he ER nurse and hitting staff. He had a diarrhea episode in the ER and refused to let the nurses jose an him up. Further details regarding events at [facility] are unknown at this time. He was not havi ng nausea, vomiting, and diarrhea at the time of transfer yesterday. PAST MEDICAL HISTORY: 1. Abdominal aortic aneurysm greater than 6 cm for which he has refused endovascular stent and is aw are of likely imminent when it ruptures. 2. Peripheral vascular disease. Lower extremity bypass needed, but refused. 3. Atrial flutter. 4. Pulmonary embolus and DVT. 5. Diabetes type 2. 6. Severe cataracts with blindness. He is "thinking about pursuing surgery.". 7. BPH with urinary retention now with Le catheter. 8. Anxiety. MEDICATIONS: Please see computer record for full detailed list. ALLERGIES: Please see list in the computer. SOCIAL HISTORY: He smoked heavily until 1979. No alcohol. He currently lives in independent living low income housing, and Velia, his neighbor, is the power of united states attorney. He is a . Reportedly his was the breadwinner prior to her , and he has a long history of marginal employment. REVIEW OF SYSTEMS: Complete review of systems obtained. Review of systems negative regarding Consti tutional, HEENT, GI, Pulmonary, Cardiovascular, , Hematology, Skin, Musculoskeletal, Endocrine, Psy ch except for positives and negatives as in HPI. This review of systems is limited by patient's comp liance. FAMILY HISTORY: Reviewed and noncontributory to presenting complaint. PHYSICAL EXAMINATION: GENERAL: Well-developed, well-nourished male, in no distress. VITAL SIGNS: Temperature 36.8, pulse 83, blood pressure 152/68, saturating 88% on room air. HEENT: Normal conjun ctivae. Pupils equal and react to light. ENT: Normal ears and nose. Hearing intact. Normal lips and teeth. Oropharynx moist. NECK: Trachea midline. No thyromegaly. CHEST: Normal effort. LUNG S: Clear to auscultation bilaterally. CARDIOVASCULAR: Regular rhythm. No murmur. No extremity ed saurabh. ABDOMEN: Soft, nontender. No hepatosplenomegaly. SKIN: Warm, dry, intact. No rash. MUSCULO SKELETAL: No cyanosis or clubbing. Strength 5/5 upper and lower extremities. NEUROLOGIC: Cranial nerves intact. Normal sensation to light touch. PSYCHIATRIC: Awake and alert. Minimal compliance, aggressive, angry, although does seem to have memory regarding events at [facility]. Just unwilling to converse regarding current situation. LABORATORY DATA: White count 7.25, hematocrit 38.4, platelets 176. Sodium 144, potassium 5.0, chlor elisa 103, bicarb 27, BUN 44, creatinine 1.2, glucose 173, AST 186, ALT 140, lipase 429. Influenza neg ative. TEST DATA: EKG viewed by me. My personal interpretation is atrial flutter rate controlled. No ST c hanges. IMAGING DATA: Chest x-ray is negative. This case was discussed with Dr. Ezekiel Sullivan. The patient was not felt fit to return to [facility] in his current condition. ASSESSMENT/PLAN: 1. Agitation. The patient's mental status does wax and wane. He has had some hallucinations recent ly, although when he is in his best state, he is thought to have decisional capacity. I do think he is a little confused at this time. He is angry and refusing care. He is aggressive, and the staff a re sometimes in danger. Will continue his scheduled Zyprexa 2.5 mg p.o. b.i.d. Will offer p.r.n. At oralia and Haldol as needed for acute management of his agitated state. We did attempt psychiatric binta luation during his last hospitalization, and it was determined that his poor vision and his low basel ine functional state cause him to be completely overwhelmed when he is in the hospital causing severe anxiety which leads to aggressive behavior. He may be a good candidate for a [facility] admission [facility] though he is medically complex which would make this disposition more difficult. 2. Hip fracture status post recent operative repair. Continue subcutaneous Lovenox for 14 days post surgery. 3. Urinary retention with Le catheter. Continue Flomax and Proscar. Voiding trial in 1-2 weeks. If he fails, then will need urology consultation, although getting this gentleman to perform any ty pe of elective procedure has been prohibitive so therefore I would assume a benign prostatic hypertro phy surgery would be similar. 4. Nausea, vomiting, and diarrhea. This is new in the last 24 hours. Will check a gastrointestinal panel PCR. 5. Hypoxemia. I suspect this is due to postoperative atelectasis after hip surgery and prolonged be d-bound status. I think pulmonary embolus is less likely. Emergency room did attempt a CTA of the c hest to rule out pulmonary embolus and he refused. 6. Abdominal aortic aneurysm greater than 6 cm. He has been seen extensively by Dr. Srinivasan in the past for endovascular stent, and she has been unable to get him agreeable to proceed with the procedure. The patient is fully aware he has this abdominal aortic aneurysm and is fully aware when it ruptures , he will imminently . 7. Peripheral vascular disease. Previously determined to need a lower extremity bypass surgery due to severe lower extremity stenoses. Patient is well known to Dr. Dietrich. He has never agreed to proc eed with surgery. 8. Atrial flutter chronic. He is rate controlled. He was previously on anticoagulation, but that w as discontinued as an outpatient due to falls and noncompliance with monitoring. 9. Decubitus ulcers. Will consult Wound Care. 10. Code status: Full. We attempted extensive discussions with him and Velia during the last hospi talization in conjunction with Palliative Care to possibly change to DNR as I suspect that will more align with his goals of care given his constant refusal of surgery and therapies. Unfortunately, the patient and Velai continue to ask for full cor although I query their insight into this decision. Haider pretty seems to have somewhat unrealistic goals for this patient, thinking that he is going to be able to return to independent living and eventually get his cataract surgery and abdominal aortic aneurysm surgery performed, although all of our attempts to provide that sort of management to this patient h carisa failed. Will reconsult Palliative Care and it sounds like more extensive meetings are going to b e necessary to find the right care plan for this gentleman. 11. Deep vein thrombosis prophylaxis. He is high risk. Will place him on subcutaneous Lovenox. 12. Admission status: Given the medical complexity as discussed above and difficult disposition, I highly anticipate greater than 48 hours will be required to find the proper placement. I will therefo re admit to inpatient. /[id number]/MODL
--- NOTE | 2017-09-06 15:07 | PDMN ---
Medical Necessity Medical necessity: C/M review: est. > 2 MN LOS for eval and TX of acute and persistent agitation, nausea, vomiting, diarrhea of unclear etiology, hypoxemia , requiring planned Wound Care consult, Palliative Care consult, ongoing IV fluids, cardiac monitoring, pulse oximetry, supplemental O2 as needed, acute inpt PT/OT/ST, comorbid 08/31/2017-09/05/2017 hospitalization for hip fracture S/ p operative repair, urinary retention with Le catheter, abdominal aortic aneurysm . 6 cm, peripheral vascular disease, blindness caused by cataracts, chronic atrial flutter, decubitus ulcers present on admission per H/P.
[2017-09-06] MEDS: OLANZapine 2.5 MG TAB PO SCH (22:07)
[2017-09-06] MEDS ORDERED: ONDANSETRON DISINTEGRATING 4 MG TAB PO PRN (23:12)
[2017-09-07 03:07] LABS: PLATELET COUNT 180 10^3/uL (150-400)
[2017-09-07] MEDS: PANTOPRAZOLE SODIUM 40 MG VIAL IVP SCH (08:53)
[2017-09-07] MEDS ORDERED: ENOXAPARIN 40 MG/0.4 ML SYR SC SCH (09:00)
[2017-09-07] MEDS ORDERED: 1/2 NS 1,000 ML IV SCH (10:45)
[2017-09-07] MEDS: ASPIRIN 81 MG CHEWABLE TAB PO SCH ×2 (11:01→12:21)
[2017-09-07] MEDS: amLODIPine BESYLATE 5 MG TAB PO SCH ×2 (11:01→12:19)
[2017-09-07] MEDS: FINASTERIDE 5 MG TAB PO SCH ×2 (11:02→12:21)
[2017-09-07] MEDS: OLANZapine 2.5 MG TAB PO SCH ×3 (11:03→22:42)
[2017-09-07] MEDS: TAMSULOSIN HCL 0.4 MG CAP PO SCH ×2 (11:04→12:21)
--- NOTE | 2017-09-07 17:49 | HOSPPROG ---
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 Srinivasan -he is aware of risk of imminent if it ruptures * Chronic aflutter - rate ok -anticoag dc'd due to falls and non-compliance * Severe PVD -LE bypass recommended by Dr. Dietrich and refused * Hypoxia - due to atelectasis s/p hip fracture -CTA chest negative for PE * Urinary retention - > 1000cc retained -continue Flomax, Proscar -voiding trial 1-2 weeks -outpatient urology consult if fails * Full code - seems inconsistent with his refusals -seems to desire to be left alone -palliative care and ethics consult Subjective: Refusing everything including O2 and basic nursing care Objective: Vital Signs Temp Pulse Resp BP Pulse Ox 36.3 C 86 21 H 153/81 H 95 09/07/17 15:11 09/07/17 15:11 09/07/17 15:11 09/07/17 15:11 09/07/17 15:11 Microbiology 09/07/17 13:10 Gram Stain - Final Hip - Eswab Laboratory Results 09/07/17 03:00 09/07/17 03:00 09/06/17 09/07/17 09/08/17 05:59 05:59 05:59 Intake Total 221 Output Total 1425 Balance -1204 case d/w Dr. Thierry Mauricio radiology regarding radiology strategy - Physical Exam Constitutional: no apparent distress, appears nourished, not in pain, other ( lying naked in bed, agitated, aggressive) Cardiovascular: regular rate and rhythym, no murmur, rub, or gallop Respiratory: no respiratory distress, no rales or rhonchi, clear to auscultation Gastrointestinal: normoactive bowel sounds, soft, non-tender abdomen, no palpable masses Skin: no rashes or abrasions, no fluctuance, no induration Psychiatric: interacting appropriately, not anxious, not encephalopathic, thought process linear ICD10 Worksheet Patient Problems: Problems Problem Status Onset Atrial flutter Acute Hypoxemia Acute Vomiting Acute Cervical strain Acute Dehydration Acute Elevated troponin Acute Head injury Acute Nausea, vomiting, and diarrhea Acute Palliative care encounter Acute Pancreatitis Acute Pneumonia Acute Pulmonary embolus Acute Toe infection Acute
[2017-09-08 02:06] LABS: HEPATITIS B SURFACE ANTIGEN NEGATIVE (NEGATIVE)
[2017-09-08 02:11] LABS: HEPATITIS A ANTIBODY IGM (BCH) NEGATIVE (NEGATIVE); HEPATITIS B CORE AB IGM NEGATIVE (NEGATIVE)
[2017-09-08 02:23] LABS: HEPATITIS C ANTIBODY TOTAL NEGATIVE (NEGATIVE)
[2017-09-08 05:27] LABS: PLATELET COUNT 191 10^3/uL (150-400)
[2017-09-08] MEDS: PANTOPRAZOLE SODIUM 40 MG VIAL IVP SCH ×3 (09:14→15:07)
[2017-09-08] MEDS: FINASTERIDE 5 MG TAB PO SCH ×2 (09:15→10:36)
[2017-09-08] MEDS: OLANZapine 2.5 MG TAB PO SCH ×2 (09:15→20:35)
[2017-09-08] MEDS: TAMSULOSIN HCL 0.4 MG CAP PO SCH ×2 (09:15→10:37)
[2017-09-08] MEDS: ASPIRIN 81 MG CHEWABLE TAB PO SCH ×2 (09:15→10:35)
[2017-09-08] MEDS: ACETAMINOPHEN 325 MG TAB PO PRN (09:15)
[2017-09-08] MEDS: amLODIPine BESYLATE 5 MG TAB PO SCH (10:34)
--- NOTE | 2017-09-08 16:14 | ASMTCMCOM ---
CM Note CM Note Notes: Spoke with Erin Grubbs [employer] MECHANIC, Krystin from [facility] regarding pt. Care Planning meeting arranged for tomorrow, 09/09/17 at 10am. Erin left voicemail alerting pt's proxy, Velia ([phone]) of meeting. Mary Juarez also alerted & plans to attend. MD & RN updated. Mona, from [facility], onsite; updates provided. CM will continue to follow. DC plan- SNF Date Signed: 09/08/2017 04:14 PM Electronically Signed By:Justina Stuart RN
--- NOTE | 2017-09-08 19:39 | HOSPPROG ---
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 Srinivasan -he is aware of risk of imminent if it ruptures * Chronic aflutter - rate ok -anticoag dc'd due to falls and non-compliance * Severe PVD -LE bypass recommended by Dr. Dietrich and refused * Hypoxia - due to atelectasis s/p hip fracture -CTA chest negative for PE * Urinary retention - > 1000cc retained * Recent hip fracture status post repair PLANS: -Lovenox SQ for 14 days -continue Flomax, Proscar -voiding trial 1-2 weeks;outpatient urology consult if fails -Full code per his request though seems inconsistent with his refusals for medical testing and procedures to prevent life-threatening complications of his medical issues -check thyroid B12 and RPR -nutritional supplements as able -will continue discussions with the patient, bottle caser, nursing staff, palliative care team about care decision making and recommendations. The patient continually declines medications, diagnostic studies, and procedures which could reduce symptoms or potentially be life saving, yet continues to request to be full cor. I am concerned however that he has very poor memory and some comprehension abnormalities, and I do believe he has some dementia and I am concerned about his decisional capacity. There is a care conference scheduled for tomorrow with the team members. I will try and review the chart to see whether we have done a cognitive evaluation in the either of his recent admissions. -for now will continue Zyprexa, efforts to help with his behavioral issues from a nursing and staff standpoint, and avoid CORRECTIONAL SUPERVISOR active medications SUBJECTIVE: The patient says that he is very concerned about being held here in the hospital and not allowed to go home. I asked him if he recalled why he was not being sent home and he did not recall having any conversation with anyone about this question. I asked him if he was able to stand up and he stated no. I asked if he felt like this was a good reason to not go home and he did say yes. He does complain of ongoing significant discomfort in the epigastrium upon eating or drinking. No nausea or vomiting Per the nurses the patient continues to have significant behavioral issues, swinging at nurses and throwing things in the room but never making contact with the nurses with these. He has inappropriate comments at times. He initially declined to take medications but his nurse today has been able, once we got his Zyprexa in, to talk him into settling down in into taking his other medications. He tells me that he does not have any recollection of Dr. Valenzuela or anyone else talking to him about any abnormalities in his esophagus. He also states he does not recall anyone talking to him about our concerns and issues around discharging him from the hospital and the case management efforts that had been ongoing. I reviewed with our patient case coordinator today who tells me that his next door neighbor has noticed that he has had significant difficulty understanding things lately, such as her efforts to teach him how to use a new electric stove he got which she was completely unable to comprehend, per her. OBJECTIVE Vitals reviewed: Mild kidney remains, otherwise stable without fever Exam: alert oriented skin warm dry color ok resps not labored lungs clear BSs heart regular abd soft nondistended nontender, bowel sounds present limbs both heels and ankles are wrapped in dressings and I did not undo these as they had just been done by wound care nurse iv site ok Objective: Vital Signs Temp Pulse Resp BP Pulse Ox 36.8 C 77 21 H 143/52 H 90 L 09/08/17 16:55 09/08/17 16:55 09/08/17 16:55 09/08/17 16:55 09/08/17 16:55 Microbiology 09/07/17 13:10 Gram Stain - Final Hip - Eswab Laboratory Results 09/08/17 04:14 09/08/17 04:14 09/07/17 09/08/17 09/09/17 06:59 06:59 06:59 Intake Total 221 800 600 Output Total 1425 750 500 Balance -1204 50 100 - Time Spent With Patient Time Spent with Patient: greater than 35 minutes Time Spent with Patient: Greater than 35 minutes spent on this patients care, greater than 50% of time spent counseling, educating, and coordinating care regarding the above mentioned plan. ICD10 Worksheet Patient Problems: Problems Problem Status Onset Atrial flutter Acute Hypoxemia Acute Vomiting Acute Cervical strain Acute Dehydration Acute Elevated troponin Acute Head injury Acute Nausea, vomiting, and diarrhea Acute Palliative care encounter Acute Pancreatitis Acute Pneumonia Acute Pulmonary embolus Acute Toe infection Acute
[2017-09-09 05:38] LABS: PLATELET COUNT 165 10^3/uL (150-400)
[2017-09-09] MEDS: PANTOPRAZOLE SODIUM 40 MG VIAL IVP SCH (09:14)
[2017-09-09] MEDS: OLANZapine 2.5 MG TAB PO SCH ×2 (09:24→21:10)
[2017-09-09] MEDS: TAMSULOSIN HCL 0.4 MG CAP PO SCH (09:24)
[2017-09-09] MEDS: ASPIRIN 81 MG CHEWABLE TAB PO SCH (10:51)
[2017-09-09] MEDS: amLODIPine BESYLATE 5 MG TAB PO SCH (10:51)
[2017-09-09] MEDS: FINASTERIDE 5 MG TAB PO SCH (10:51)
--- NOTE | 2017-09-09 14:08 | WOCRNPDOC ---
WOCRN Advanced Assessment Note - Skin Integrity Problem, Advanced Assess Left Anterior Ankle Pressure Injury Dressing Type: Allevyn Life Dressing Description: Clean/Dry, Intact Exudate Amount: None Integumentary Issue Intervention: Visualized Under Dressing Cassi Wound Tissue: Blanching, Intact Cassi Wound Swelling: None Wound Bed Color: Purple, Red Wound Edges: Well Defined Site Measurement - Head-to-Toe Length X Width X Depth (cm): [id number] Pressure Injury Stage: Deep Tissue Injury (DTI) Pressure Injury Present on Admit: Yes Skin Integrity Problem Comment: Patient with dark purple and red triangular area to anterior ankle. Unknown cause. Was present during last admission just days ago. Skin remains intact. Wound care will continue to follow as this wound evolves. Left Heel Pressure Injury Dressing Type: Other Other Dressing Type: Tiele heel dressing Dressing Description: Clean/Dry, Intact Exudate Amount: None Integumentary Issue Intervention: Visualized Under Dressing Wound Bed Constitution: Intact Serous Filled Blister Wound Edges: Well Defined Site Odor: None Site Measurement - Head-to-Toe Length X Width X Depth (cm): [id number] Pressure Injury Stage: Deep Tissue Injury (DTI) Pressure Injury Present on Admit: Yes Skin Integrity Problem Comment: Pulled back dressings to visualize wound. Serous filled blister remains intact. Centrally, darker coloring in the wound bed may indicate a DTI. Dressings reapplied. Wound care will continue to follow this wound. Right Heel Pressure Injury Dressing Type: Other Other Dressing Type: Tiele heel dressing Dressing Description: Clean/Dry, Intact Exudate Amount: None Integumentary Issue Intervention: Visualized Under Dressing Wound Bed Constitution: Intact Serous Filled Blister Wound Edges: Well Defined Site Measurement - Head-to-Toe Length X Width X Depth (cm): 2x3.7xblister Pressure Injury Stage: Deep Tissue Injury (DTI) Pressure Injury Present on Admit: Yes Skin Integrity Problem Comment: Pulled back dressings to visualize wound. Serous filled blister remains intact. Centrally, darker coloring in the wound bed may indicate a DTI. Dressings reapplied. Wound care will round again later this week.
--- NOTE | 2017-09-09 14:27 | PDPCPN ---
Palliative Care Progress Note Assessment/Plan: Referring provider: Dr Valenzuela Reason for consult: Complex medical decision making Symptom control HPI: Adams Cameron is a 82 yo with PMH recent left hip fx, a fib, HTN, AAA >6cm previously refused surgery, cataracts also previously refusing surgery, multiple falls, DM, and PVD needing stents admitted to the hospital for nausea and vomiting. Ct of abdomen with abnormal esophagus with gastric distention. Has been refusing some interventions at times with waxing/waning confusion and agitation. Recent hospitalization for left hip fx s/p ORIF with prolonged hospitalization 2/2 non compliance at times. Developed pressure ulcers during that hospitalization. Sent to [facility] for rehab. Sees Dr Roberson as outpt for peripheral neuropathy s/p SPEP with elevated alpha 2 protein with pending referral to hematology per neighbor Velia. Met with Velia outside of the room with Adams's permission. Discussed with Velia Adams's current medical condition and waxing/waning mental status. Velia stated she spoke with Adams last night who told her he had "wishes and goals" that he wanted to accomplish and was "hoping to squeeze out a few more years". Discussed challenges of his confusion contributing to sometimes lack of care in line with his wishes to extend life. She feels he often gets very overwhelmed and anxious with new situations and needs time and reassurance to do the things he is suppose to. She feels he would want to figure out new issues with tests or procedures and she can try to talk with him around different things he has been refusing. We also discussed if he continues to choose to not have tests/ procedures then he could also choose the route of comfort care only. She respects this would be his decision and is able to support him in whatever he chooses. For now agreed that we should continue to pursue medical interventions with knowing his mental status will continue to wax/wane. Assessment: Physical: - Pain: left hip pain -tylenol PRN - very sensitive to opiates so only for severe uncontrolled pain use low dose - Nausea/vomiting: - tolerating some liquids - work up in progress - on protonix - weakness - PT/OT Emotional/psychological: acute encephalopathy: - on scheduled zyprexa which is very helpful as long as he receives it. - Mary Burch involved - maintain normal routines Advanced Care Planning: Is patient decisional?: Yes Code Status: Full MD POA: Neighbor Velia is his verbal MDPOA. Plan: Continue with medical interventions. Return back to [facility] for rehab when medically stable. Subjective: I need to be moved Objective: Social History: for many years. His from a staph infection at the [facility]. Also had a young son who around 2 years old. 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 Used to enjoy going camping with his . Lives alone with a neighbor who helps him with errands, shopping, etc. A Confucianism and has taken classes on philosophy as well as psychology. Medication list reviewed ROS: General: fatigue, weakness ENT: some throat pain Resp: negative GI: poor appetite, nausea/vomiting : negative MS: left hip fx Skin: pressure ulcers on heels Neuro: negative Psych: negative Functional assessment: PPS: 40% Functional status: dependent on ADLs, IADLs Vital Signs Temp Pulse Resp BP Pulse Ox 36.9 C 77 16 133/55 H 90 L 09/09/17 07:50 09/09/17 07:50 09/09/17 07:50 09/09/17 10:51 09/09/17 07:50 Microbiology 09/07/17 13:10 Gram Stain - Final Hip - Eswab Laboratory Results 09/09/17 04:34 09/09/17 04:34 09/08/17 09/09/17 09/10/17 05:59 05:59 05:59 Intake Total 800 1100 Output Total 750 1200 Balance 50 -100 Physical Exam - Physical Exam General Appearance: alert, no apparent distress Respiratory: No respiratory distress, No accessory muscle use Skin: normal color, warm/dry Extremities: pedal edema Neuro/Psych: alert, oriented x 3 ICD10 Worksheet Patient Problems: Problems Problem Status Onset Atrial flutter Acute Hypoxemia Acute Vomiting Acute Cervical strain Acute Dehydration Acute Elevated troponin Acute Head injury Acute Nausea, vomiting, and diarrhea Acute Palliative care encounter Acute Pancreatitis Acute Pneumonia Acute Pulmonary embolus Acute Toe infection Acute
--- NOTE | 2017-09-09 14:44 | ASMTCMCOM ---
CM Note CM Note Notes: Palliative care met again with pt and his proxy Velia. Staff was kept at a minimum in this morning's meeting as pt gets easily overwhelmed. He continues to wax and wane with his confusion and has not committed to any medical interventions at this time. Velia and will continue to encourage pt. CM tito continue to follow. Date Signed: 09/09/2017 02:43 PM Electronically Signed By:YANNICK Steel
--- NOTE | 2017-09-09 18:50 | HOSPPROG ---
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 I have been recommending that he continue proton pump inhibitors, and he has been quite reluctant to take these and takes quite a lot of effort from the nurses; I have also recommended and us could be for diagnosis and he is quite reluctant to engage in this study * Severe AAA > 6cm -refused endovascular stent with Dr. Srinivasan -he is aware of risk of imminent if it ruptures * Chronic aflutter - rate ok -anticoag dc'd due to falls and non-compliance * Severe PVD -LE bypass previously recommended by Dr. Dietrich and refused * Hypoxia - due to atelectasis s/p hip fracture -CTA chest negative for PE * Urinary retention - > 1000cc retained * Recent hip fracture status post repair * Severe cataracts - nearly blind PLANS: -Lovenox SQ for 14 days -continue Flomax, Proscar -voiding trial 1-2 weeks; outpatient urology consult if fails -Full code per his request though seems inconsistent with his refusals for medical testing and procedures to prevent life-threatening complications of his medical issues -check thyroid B12 and RPR -nutritional supplements as able -for now will continue Zyprexa as the nurses report that he is able to engage in work with them better when he takes at; efforts to help with his behavioral issues from a nursing and staff standpoint, and avoid RIVERBOAT CAPTAIN active medications There was a care conference today that was to involve multiple staff members although the patient was unable to tolerate having them all there so her mental health airport screener and palliative care practitioner did this with him. It is reported after that conference that the patient has decisional capacity. Though I do see and agree that the patient at times can engage in a conversation in a way that demonstrates some significant understanding of his issues, they are other times when in my conversations with him he clearly does not have good comprehension of the issues and forgets what has been stated to him from past visits. More over he repeatedly tells me that he will do anything it takes him whatever I recommend to resolve his most pressing symptoms which are his digestive symptoms now, and he will do whatever it takes to recover his strength mobility and nutrition so that he can get back to his previous active and independent lifestyle. However when I asked him what he thinks it would take to achieve those goals he clearly does not have significant insight into his issues. When I make recommendations that would be important for his potential recovery from his symptoms and his state of debility , he declines the diagnostic procedures and therapies I am recommending. Based on these findings and how things have gone at home for him according to his medical POA, I am not entirely convinced that he is truly decisional for all of his medical decision making. He wants to be DNR and I think he does understand that I think he is decisional to make that choice. At this point as the most pressing symptoms are his GI symptoms and given his CT scan findings, I am recommending to him that he have an upper endoscopy. He has repeatedly stated that he would much rather have a barium swallow study even no I have reviewed with him that that would not likely give a definitive diagnosis. He was still need an endoscopy to find out what we really need to know to give him a prognosis and treatment options. At this time he is allowing that if I the talk to Suni his medical POA and have her review with him he might PA willing to consider this procedure. The nurses have been able to get him to take his proton pump inhibitor though it is taking quite a bit of effort on their part and has only taken 1 or 2 doses so far. As I review this medication with him today he is not willing to commit to take the medicine despite my describing that this medicine will likely help improve his digestive symptoms quite a bit, which is 1 of his main goals. SUBJECTIVE: Continues to have dramatic symptoms whenever he eats or drinks anything described as a burning pain in the low substernal upper at gastric area. He states this is due to all of his foods immediately converting themselves to acids which are causing injury. Again he feels extremely weak and is unable to stand or get in and out of bed. He has no other new pains, no dyspnea, no nausea no fever symptoms OBJECTIVE Vitals reviewed: Mild kidney remains, otherwise stable without fever Exam: alert oriented to person place and time, however there is significant memory issues and cognitive issues as I have described above skin warm dry color ok resps not labored lungs clear BSs heart regular abd soft nondistended nontender, bowel sounds present limbs both heels and ankles are wrapped in dressings which are clean and dry iv site ok Laboratory data: Sodium still high but down slightly at 1:47 a.m. today, BUN down to 34, creatinine stable and lytes otherwise stable White blood cell count down to 7000 CBC otherwise stable Objective: Vital Signs Temp Pulse Resp BP Pulse Ox 37.4 C 85 16 119/79 93 09/09/17 15:59 09/09/17 15:59 09/09/17 15:59 09/09/17 15:59 09/09/17 15:59 Microbiology 09/07/17 13:10 Gram Stain - Final Hip - Eswab Laboratory Results 09/09/17 04:34 09/09/17 04:34 09/08/17 09/09/17 09/10/17 06:59 06:59 06:59 Intake Total 800 1100 1000 Output Total 750 1200 325 Balance 50 -100 675 - Time Spent With Patient Time Spent with Patient: greater than 35 minutes Time Spent with Patient: Greater than 35 minutes spent on this patients care, greater than 50% of time spent counseling, educating, and coordinating care regarding the above mentioned plan. ICD10 Worksheet Patient Problems: Problems Problem Status Onset Atrial flutter Acute Hypoxemia Acute Vomiting Acute Cervical strain Acute Dehydration Acute Elevated troponin Acute Head injury Acute Nausea, vomiting, and diarrhea Acute Palliative care encounter Acute Pancreatitis Acute Pneumonia Acute Pulmonary embolus Acute Toe infection Acute
[2017-09-09] MEDS: ACETAMINOPHEN 325 MG TAB PO PRN (21:10)
[2017-09-10] MEDS: OLANZapine 2.5 MG TAB PO SCH ×2 (10:54→19:47)
[2017-09-10] MEDS: PANTOPRAZOLE SODIUM 40 MG VIAL IVP SCH (10:54)
[2017-09-10] MEDS: TAMSULOSIN HCL 0.4 MG CAP PO SCH (10:55)
[2017-09-10] MEDS: amLODIPine BESYLATE 5 MG TAB PO SCH (10:58)
[2017-09-10] MEDS: FINASTERIDE 5 MG TAB PO SCH (10:59)
[2017-09-10] MEDS: ASPIRIN 81 MG CHEWABLE TAB PO SCH (10:59)
--- NOTE | 2017-09-10 18:11 | HOSPPROG ---
Hospitalist Progress Note Assessment/Plan: DIAGNOSES: * encephalopathy -while I agree that there is a metabolic encephalopathy that has occurred an acute component I believe that it may actually be that the major issue here is a dementia with significant behavioral component; this is based on both my examination and the comments of his neighbor, who is his proxy, as well as our nursing staff and case management staff * severe heartburn, Possible esophageal tumor versus peptic disease based on CT findings earlier this admission; Also severe gastric distension w ? of GOO or gastroparesis -quite symptomatic resulting in inability to take in anything other than small amounts of clear liquids and that with significant discomfort -this is resulting in malnutrition for him and contributing to his severe weakness deconditioning and inability to ambulate -he is now having some improvement after finally accepting proton pump inhibitor last 2 days; encouraged him to continue that therapy and I did review with him the option of Carafate -again we have discussed the options for diagnostic testing, and he is not ready to agree to endoscopy at this time * Severe AAA > 6cm -previously declined endovascular stent with Dr. Srinivasan -he is aware of risk of imminent if it ruptures * Chronic aflutter - rate ok -anticoag dc'd due to falls and non-compliance * Severe PVD -LE bypass previously recommended by Dr. Dietrich however patient declined * Hypoxia - due to atelectasis s/p hip fracture -CTA chest negative for PE * Urinary retention - > 1000cc retained * Recent hip fracture status post repair * Severe cataracts - nearly blind PLANS: -continue proton pump inhibitor now that he is allowing that, and I reviewed the possible use of Carafate with him and he is accepting that therapy now as well -continue Flomax, Proscar -voiding trial 1-2 weeks; outpatient urology consult if fails -Full code per his request though seems inconsistent with his refusals for medical testing and procedures to prevent life-threatening complications of his medical issues -check thyroid B12 and RPR -nutritional supplements as able -for now will continue Zyprexa as the nurses report that he is able to engage in work with them better when he takes at; efforts to help with his behavioral issues from a nursing and staff standpoint, and avoid COMMERCIAL INSTALLER active medications SUBJECTIVE: States his heartburn symptoms are notably better today and has been able to take in more liquids No bowel movements here so far No nausea or vomiting No other new symptoms, feet and heel wounds are not painful at this time OBJECTIVE Vitals reviewed: Mild kidney remains, otherwise stable without fever Exam: alert oriented to person place and time, however there is significant memory issues and cognitive issues as I have described above skin warm dry color ok resps not labored lungs clear BSs heart regular abd soft nondistended nontender, bowel sounds present limbs both heels and ankles are wrapped in dressings which are clean and dry iv site ok Abdominal x-rays done today, I reviewed the images, he still has market gaseous distension of the stomach raising question of gastric outlet obstruction or gastroparesis Objective: Vital Signs Temp Pulse Resp BP Pulse Ox 37.0 C 79 24 H 128/81 H 91 L 09/10/17 16:00 09/10/17 16:00 09/10/17 16:00 09/10/17 16:00 09/10/17 16:00 Microbiology 09/07/17 13:10 Gram Stain - Final Hip - Eswab Wound Culture - Final Laboratory Results 09/09/17 04:34 09/10/17 04:35 09/09/17 09/10/17 09/11/17 06:59 06:59 06:59 Intake Total 1100 1000 800 Output Total 1200 1275 275 Balance -100 -275 525 - Time Spent With Patient Time Spent with Patient: greater than 35 minutes Time Spent with Patient: Greater than 35 minutes spent on this patients care, greater than 50% of time spent counseling, educating, and coordinating care regarding the above mentioned plan. ICD10 Worksheet Patient Problems: Problems Problem Status Onset Atrial flutter Acute Hypoxemia Acute Vomiting Acute Cervical strain Acute Dehydration Acute Elevated troponin Acute Head injury Acute Nausea, vomiting, and diarrhea Acute Palliative care encounter Acute Pancreatitis Acute Pneumonia Acute Pulmonary embolus Acute Toe infection Acute
[2017-09-10] MEDS: SUCRALFATE 1 GM/10 ML UDCUP PO SCH (19:47)
[2017-09-11] MEDS: SUCRALFATE 1 GM/10 ML UDCUP PO SCH ×4 (07:42→20:32)
[2017-09-11] MEDS: PANTOPRAZOLE SODIUM 40 MG VIAL IVP SCH (09:00)
[2017-09-11] MEDS: OLANZapine 2.5 MG TAB PO SCH ×2 (09:01→20:31)
[2017-09-11] MEDS: amLODIPine BESYLATE 5 MG TAB PO SCH (09:01)
[2017-09-11] MEDS: FINASTERIDE 5 MG TAB PO SCH (09:03)
[2017-09-11] MEDS: TAMSULOSIN HCL 0.4 MG CAP PO SCH (09:03)
[2017-09-11] MEDS: ASPIRIN 81 MG CHEWABLE TAB PO SCH (09:03)
--- NOTE | 2017-09-11 19:04 | HOSPPROG ---
Hospitalist Progress Note Assessment/Plan: DIAGNOSES: * encephalopathy -while I agree that there is a metabolic encephalopathy that has occurred an acute component I believe that it may actually be that the major issue here is a dementia with significant behavioral component; this is based on both my examination and the comments of his neighbor, who is his proxy, as well as our nursing staff and case management staff * severe heartburn, Possible esophageal tumor versus peptic disease based on CT findings earlier this admission; Also severe gastric distension w ? of GOO or gastroparesis -quite symptomatic resulting in inability to take in anything other than small amounts of clear liquids and that with significant discomfort -this is resulting in malnutrition for him and contributing to his severe weakness deconditioning and inability to ambulate -also does have iron deficiency anemia likely due to whatever is causing the gi sxs -initially had some decreased sxs on PPI but now even with carafate added says sxs severe again * Iron deficiency anemia, new diagnosis today - see below discussion -will try to talk pt into taking iron supplements * Severe deconditioning, unable to stand or ambulate, high fall risk * Bilateral heal ulcers due to pressure and vascular insuff, both present on admission -ongoing wound care w wound care nurse -very hard to get him to keep pillows to elevated feet, won't wear boots * Severe AAA > 6cm -previously declined endovascular stent with Dr. Srinivasan -he is aware of risk of imminent if it ruptures * Chronic aflutter - rate ok -anticoag dc'd due to falls and non-compliance * Severe PVD -LE bypass previously recommended by Dr. Dietrich however patient declined * Hypoxia - due to atelectasis s/p hip fracture -CTA chest negative for PE * Urinary retention - > 1000cc retained * Recent hip fracture status post repair * Severe cataracts - nearly blind I have been trying for past several days to get patient to agree to an EGD but he has declined. I have reviewed in detail today with Dr Jones, who agrees EGD is indicated. Today I had very long conversation with Velia his POA, and then at bedside with Velia and the patient as well. During this discussion we were able to at least at this time get Adams to agree to proceding with EGD tomorrow PLANS: -continue proton pump inhibitor and carafate now that he is allowing that -will work on trying to get him to accept iron replacement - EGD is planned for 1/26, is scheduled and npo ordered -continue Flomax, Proscar -voiding trial 1-2 weeks; outpatient urology consult if fails -Full code per his request though seems inconsistent with his refusals for medical testing and procedures to prevent life-threatening complications of his medical issues -nutritional supplements as able -for now will continue Zyprexa as the nurses report that he is able to engage in work with them better when he takes at; efforts to help with his behavioral issues from a nursing and staff standpoint, and avoid [employer] active medications -no vascular interventions per pt's wishes -continue wound care -continue to try to get him to allow measures to keep heals on bed SUBJECTIVE: States his heartburn symptoms are notably better today and has been able to take in more liquids No bowel movements here so far No nausea or vomiting No other new symptoms, feet and heel wounds are not painful at this time OBJECTIVE Vitals reviewed: Mild kidney remains, otherwise stable without fever Exam: alert oriented to person place and time, however there is significant memory issues and cognitive issues as I have described above skin warm dry color ok resps not labored lungs clear BSs heart regular abd soft nondistended nontender, bowel sounds present limbs both heels and ankles are wrapped in dressings which are clean and dry iv site ok Abdominal x-rays done today, I reviewed the images, he still has market gaseous distension of the stomach raising question of gastric outlet obstruction or gastroparesis Objective: Vital Signs Temp Pulse Resp BP Pulse Ox 36.5 C 78 21 H 116/55 L 93 09/11/17 16:00 09/11/17 16:00 09/11/17 16:00 09/11/17 16:00 09/11/17 16:00 Microbiology 09/07/17 13:10 Gram Stain - Final Hip - Eswab Wound Culture - Final Laboratory Results 09/09/17 04:34 09/10/17 04:35 09/10/17 09/11/17 09/12/17 06:59 06:59 06:59 Intake Total 1000 800 Output Total 1275 1050 400 Balance -066 -392 -918 - Time Spent With Patient Time Spent with Patient: greater than 35 minutes Time Spent with Patient: Greater than 35 minutes spent on this patients care, greater than 50% of time spent counseling, educating, and coordinating care regarding the above mentioned plan. ICD10 Worksheet Patient Problems: Problems Problem Status Onset Atrial flutter Acute Hypoxemia Acute Vomiting Acute Cervical strain Acute Dehydration Acute Elevated troponin Acute Head injury Acute Nausea, vomiting, and diarrhea Acute Palliative care encounter Acute Pancreatitis Acute Pneumonia Acute Pulmonary embolus Acute Toe infection Acute
[2017-09-11] MEDS: NS 1,000 ML IV SCH (20:31)
[2017-09-12 05:19] LABS: PLATELET COUNT 161 10^3/uL (150-400)
[2017-09-12] MEDS: SUCRALFATE 1 GM/10 ML UDCUP PO SCH ×4 (07:32→22:08)
[2017-09-12] MEDS: ASPIRIN 81 MG CHEWABLE TAB PO SCH (07:32)
[2017-09-12] MEDS: TAMSULOSIN HCL 0.4 MG CAP PO SCH (07:33)
[2017-09-12] MEDS: PANTOPRAZOLE SODIUM 40 MG VIAL IVP SCH (07:33)
[2017-09-12] MEDS: FINASTERIDE 5 MG TAB PO SCH (07:33)
[2017-09-12] MEDS: amLODIPine BESYLATE 5 MG TAB PO SCH (09:00)
[2017-09-12] MEDS: OLANZapine 2.5 MG TAB PO SCH ×2 (09:00→22:08)
[2017-09-12] MEDS: NS 1,000 ML IV SCH (10:00)
[2017-09-12] MEDS ORDERED: LR 1,000 ML IV ONE (11:28)
--- NOTE | 2017-09-12 11:47 | PDANEPAE ---
ANE History of Present Illness EGD ANE Past Medical History - Cardiovascular History Hx Hypertension: Yes Hx Arrhythmias: Yes Hx Chest Pain: No Hx Coronary Artery / Peripheral Vascular Disease: Yes Hx CHF / Valvular Disease: No - Pulmonary History Hx COPD: No Hx Asthma/Reactive Airway Disease: No Hx Recent Upper Respiratory Infection: No Hx Oxygen in Use at Home: No Hx Sleep Apnea: No Sleep Apnea Screening Result - Last Documented: Positive - Endocrine History Hx Diabetes: Yes Obesity: yes - Renal History Hx Renal Disorders: No - Liver History Hx Hepatic Disorders: No - Neurological & Psychiatric Hx Hx Neurological and Psychiatric Disorders: No - Cancer History Hx Cancer: No - Chronic Pain History Chronic Pain: No ANE Review of Systems Review of systems is: negative Review of Systems: - Exercise capacity Exercise capacity: <4 METS ANE Patient History - Allergies Allergies/Adverse Reactions: Tetracyclines Allergy (Intermediate, Verified 09/06/17 06:50) Vomiting azithromycin Allergy (Unknown, Verified 09/06/17 06:50) Itching nitrofurantoin [From Macrobid] Allergy (Unknown, Verified 09/06/17 06:50) nitrofurantoin macrocrystalline [From Macrobid] Allergy (Unknown, Verified 09/06 06:50) Penicillins Allergy (Unknown, Verified 09/06/17 06:50) Sulfa (Sulfonamide Antibiotics) Allergy (Unknown, Verified 09/06/17 06:50) - Home Medications Home medications: home medication list seen and reviewed Home Medications: Lisinopril [Zestril 20 mg (*)] 20 mg PO DAILY 09/06/17 [Last Taken Unknown] - NPO status NPO Since - Liquids (Date): 09/12/17 NPO Since - Liquids (Time): 00:01 NPO Since - Solids (Date): 09/11/17 NPO Since - Solids (Time): 20:00 - Smoking Hx Smoking Status: Former smoker ANE Labs/Vital Signs - Labs Result Diagrams: 09/12/17 04:49 09/12/17 04:49 - Vital Signs Blood Pressure: 153/68 Heart Rate: 80 Respiratory Rate: 20 O2 Sat (%): 95 Height: 193.04 cm Weight: 107.501 kg ANE Physical Exam - Airway Neck exam: FROM Mallampati Score: Class 2 Mouth exam: poor dentition - Pulmonary Pulmonary: no respiratory distress - Cardiovascular Cardiovascular: regular rate and rhythym - ASA Status ASA Status: IV ANE Anesthesia Plan Anesthesia Plan: GA with mask
[2017-09-12] MEDS ORDERED: PROPOFOL 200 MG/20 ML VIAL ONE ×3 (11:52→12:03)
[2017-09-12] MEDS ORDERED: fentaNYL 100 MCG/2 ML INJ ONE (12:00)
[2017-09-12] MEDS ORDERED: LIDOCAINE 2% 5 ML SDV ONE (12:13)
--- NOTE | 2017-09-12 12:42 | GIREPORT ---
[facility] Surgical Services - Endoscopy Department Patient Name: Adams Cameron Procedure Date: 09/12/2017 11:22 AM Patient Type: Inpatient Attending MD/ ER Physician: Rodney Jones MD Procedure: Upper GI endoscopy Indications: Epigastric abdominal pain, Iron deficiency anemia, Functional Dyspepsia , Esophageal dysphagia Providers: Rodney Jones MD Medicines: Sedation Administered by an Anesthesia Professional Complications: No immediate complications. Description of Procedure: After obtaining informed consent, the endoscope was passed under direct vision. Throughout the procedure, the patient's blood pressure, pulse, and oxygen saturations were monitored continuously. The Endoscope was intro duced through the mouth, and advanced to the third part of duodenum. The uppe r GI endoscopy was accomplished without difficulty. The patient tolerated th e procedure well. Findings: LA Grade C (one or more mucosal breaks continuous between tops of 2 or more mucosal folds, less than 75% circumference) esophagitis with no bleedin g was found in the lower third of the esophagus. Biopsies were taken with a c old forceps for histology. Diffuse mild inflammation characterized by congestion (edema) and eryth saurabh was found in the entire examined stomach. Biopsies were taken with a co ld forceps for histology. The examined duodenum was normal. Biopsies were taken with a cold force ps for histology. A medium amount of food (residue) was found in the cardia. Estimated Blood Loss: Estimated blood loss: none. Post Op Diagnosis: - LA Grade C esophagitis. Biopsied. - Gastritis. Biopsied. - Normal examined duodenum. Biopsied. - A medium amount of food (residue) in the stomach. Recommendation: - Return patient to hospital [facility] for ongoing care. - Clear liquid diet. - Await pathology results. - Use a proton pump inhibitor PO BID. - Retained food limited eval of body and cardia. - Stomach appeared distended, but pylorus was widely open. - Suspect gastroparesis and subsequent reflux esophagitits. - Recommend clear liquids, upright posture with meals. - Recommend patient no eat within 4 hours of laying down. - Consider gastroparesis diet changes. Nutrition consult could be helpf ul with this? - Recommend UGI to eval gastric cardia and fundus - to rule out signifi cant pathology. Attending Participation: I personally performed the entire procedure. Rodney Jones MD Rodney Jones MD 09/12/2017 12:41:23 PM This report has been signed electronicallyDaus Robert MD Number of Addenda: 0 Note Initiated On: 09/12/2017 11:22 AM [email or web address]
--- NOTE | 2017-09-12 12:45 | SUROPNOTE ---
[facility] Operative Report - Surgery BRIEF EGD NOTE. FULL NOTE TO FOLLOW. EGD indication: abn xray, dysphagia meds: per anesthesia complications: none findings: 1. esophagitis ~2/3 esophagus, Grade 2-3 - bx's 2. gastritis - bx'd 3. normal duodenum - bx'd 4. distended stomach, but wide open pylorus 5. food retained in body and cardia, limited view in those areas IMPRESSION/RECS: - Clear liquid diet. - Await pathology results. - Use a proton pump inhibitor PO BID. - Retained food limited eval of body and cardia. - Stomach appeared distended, but pylorus was widely open. - Suspect gastroparesis and subsequent reflux esophagitis. - Recommend clear liquids, upright posture with meals. - Recommend patient no eat within 4 hours of laying down. - Consider gastroparesis diet changes. Nutrition consult could be helpful with this? - Recommend UGI to eval gastric cardia and fundus - to rule out significant pathology. - Will sign off, call with questions
[2017-09-12] MEDS ORDERED: ACETAMINOPHEN 500 MG TAB PO PRN (12:50)
[2017-09-12] MEDS ORDERED: NALOXONE HCL 0.4 MG/ML INJ IVP PRN (12:50)
[2017-09-12] MEDS ORDERED: NS 500 ML IV PRN (12:50)
[2017-09-12] MEDS ORDERED: fentaNYL 100 MCG/2 ML INJ IVP PRN (12:50)
[2017-09-12] MEDS ORDERED: PROMETHAZINE HCL 25 MG/ML INJ IVP PRN (12:50)
[2017-09-12] MEDS ORDERED: ONDANSETRON 4 MG/2 ML VIAL IVP PRN (12:50)
[2017-09-12] MEDS ORDERED: ALBUTEROL 3 ML DEYVIAL IH PRN (12:50)
[2017-09-12] MEDS ORDERED: OXYCODONE/APAP 5/325 TAB PO PRN (12:50)
--- NOTE | 2017-09-12 12:51 | POSTANESTH ---
Post Anesthetic Evaluation Cardiovascular Status: Normal, Stable Respiratory Status: Normal, Stable Level of Consciousness/Mental Status: Can Participate in Eval Pain Control: Adequate, Prn Tx Ordered Nausea/Vomiting Control: Adequate, Prn Tx Ordered Complications Possibly Related to Anesthesia: None Noted
--- NOTE | 2017-09-12 13:08 | HOSPPROG ---
Hospitalist Progress Note Assessment/Plan: N/V with possible GOO - EGD shows esophagitis, consider gastroparesis and associated reflux esophagitis. Discussed with Dr. Jones -clear liquids -PO PPI BID, carafate -trial reglan -dietary consult to assist with gastroparesis diet -UGI study Friday am for further evaluation of gastric fundus, which was incompletely evaluated on EGD AHRF - CTA neg for PE. Query atelectatic. -IS, wean O2 as able S/P hip fracture repair - planning for 14 days [place] lovenox, thru 09/14 Metabolic encephalopathy - some agitation here, managed with zyprexa, query underlying dementia -cog eval Pressure injury - wound care BPH / urinary retention - indwelling melissa, flomax, proscar -f/u urology for voiding trial 1-2 weeks AAA - >6 cm, pt has refused endovascular stent or surgical intervention. He is aware he will imminently if this ruptures. PVD - followed by Dr. Dietrich. Has declined operative interventions. 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 He is awake, alert, asking to eat. Denies N/V. +BM, but not normal amount with decreased oral intake. No fevers/ chills. Objective: Vital Signs Temp Pulse Resp BP Pulse Ox 37.0 C 80 20 153/68 H 95 09/12/17 11:28 09/12/17 11:47 09/12/17 11:47 09/12/17 11:47 09/12/17 11:47 Laboratory Results 09/12/17 04:49 09/12/17 04:49 09/11/17 09/12/17 09/13/17 05:59 05:59 05:59 Intake Total 800 675 Output Total 1050 1200 Balance -250 -525 - Physical Exam Constitutional: no apparent distress Eyes: PERRL Ears, Nose, Mouth, Throat: moist mucous membranes Cardiovascular: regular rate and rhythym Respiratory: no respiratory distress Gastrointestinal: normoactive bowel sounds, soft, non-tender abdomen, distension Skin: warm Musculoskeletal: full muscle strength Neurologic: AAOx3 Psychiatric: interacting appropriately ICD10 Worksheet Patient Problems: Problems Problem Status Onset Atrial flutter Acute Hypoxemia Acute Vomiting Acute Cervical strain Acute Dehydration Acute Elevated troponin Acute Head injury Acute Nausea, vomiting, and diarrhea Acute Palliative care encounter Acute Pancreatitis Acute Pneumonia Acute Pulmonary embolus Acute Toe infection Acute
[2017-09-12] MEDS ORDERED: ALBUTEROL 3 ML DEYVIAL ONE (13:22)
--- NOTE | 2017-09-12 16:05 | GCON ---
[f rep st] CONSULTATION REFERRING PHYSICIAN: Juan West MD REASON FOR CONSULTATION: Difficulty eating, odynophagia, dysphagia, and abnormal x-ray of the GI tra ct. HISTORY OF PRESENT ILLNESS: The patient is an 82-year-old male who was admitted to the hospital on 0 09/06/2017, for the evaluation of nausea, vomiting, and diarrhea. He had recently been discharged fro m the hospital after surgery for a hip fracture. His hospitalization for hip fracture was somewhat p rolonged by the patient's refusal to take part in postoperative care. Ultimately, he even developed pressure ulceration. Eventually, he was discharged to [facility] for ongoing rehab postoperatively. While there, he descr ibed nausea, vomiting, and diarrhea. When he came to the emergency room, he was somewhat combative. He even had episodes of diarrhea where he refused to let nurses help him clean up. His hospital stay has been somewhat complicated. Complications have largely revolved around managing his agitation and cooperativeness with a care plan. Multiple abnormalities have been noted during h is hospital stay. He has had periods of encephalopathy. He has had some hypoxia. He has been noted to have urinary retention. He has also been describing difficulty eating. He reports that he is able to chew foods well and swa llow them, but during the act of swallowing and soon after swallowing, he will have abdominal distent ion, fullness, mild epigastric pain. He also reports some mild odynophagia. He reports that swallow ing is essentially normal, but that he will have discomfort during swallowing. He reports no episode s of food impaction or regurgitating food during swallows. He has also been diagnosed with a low iron, normocytic anemia. ALLERGIES: Tetracyclines, azithromycin, nitrofurantoin, penicillin, and sulfa drugs. ACTIVE MEDICATIONS: Tylenol, Norvasc, aspirin, Proscar, Haldol, Zyprexa, Zofran, Protonix, Carafate, Flomax. SOCIAL HISTORY: He denies alcohol use and tobacco use. He reported he smoked heavily until the 1979. FAMILY HISTORY: Negative for colon cancer and colon polyps, to his knowledge. PAST MEDICAL HISTORY: Includes abdominal aortic aneurysm, peripheral vascular disease, atrial flutte r, pulmonary embolism and DVT, diabetes, cataracts, BPH and urinary retention, anxiety. He also repo rted a history of bleeding peptic ulcer disease. REVIEW OF SYSTEMS: A complete 10-point review was undertaken with the patient. The pertinent positi ves and negatives are detailed in the history of present illness. PHYSICAL EXAM: GENERAL: This is a well-developed, well-nourished male in no apparent distress. DONNIE NT: His pupils are equal, round, reactive to light and accommodation. His sclerae are nonicteric. His oropharynx is clear. NECK: Supple. CHEST: Unrevealing. He has good breath sounds and normal inspiratory effort. CARDIOVASCULAR: Regular rate and rhythm. ABDOMEN: Soft, nontender, with normo active bowel sounds. EXTREMITIES: Free of cyanosis, clubbing, and edema. NEURO: Grossly nonfocal. PSYCH: Awake and alert patient who is compliant and cooperative with my exam. LABORATORY TESTING: White count of 7.7, hemoglobin of 11.6, hematocrit of 36.9, platelet count of 16 1. Sodium of 146, potassium of 4.3, chloride of 108, bicarb of 29, BUN of 27, creatinine of 1.0. Ir on of 18, TIBC of 246, percent sat of 7, ferritin of 151. Total bilirubin of 1.4, conjugated bilirub in of 0.5, unconjugated bilirubin of 0.9, AST of 80, ALT of 117, alkaline phosphatase of 76, albumin of 2.7, vitamin B12 of 482, TSH of 1.98. /[id number]/MODL
--- NOTE | 2017-09-12 16:22 | ASMTCMCOM ---
CM Note CM Note Notes: Updates sent to [facility] today, plan remains d/c back to [facility]. CM to follow. Date Signed: 09/12/2017 04:21 PM Electronically Signed By:YANNICK Gandhi
--- NOTE | 2017-09-12 17:06 | GCON ---
[f rep st] CONSULTATION INPATIENT CONSULTATION NOTE REFERRING PHYSICIAN: Juan West MD REASON FOR CONSULTATION: Nausea, vomiting, abdominal pain, and abnormal x-ray of the GI tract. CHIEF COMPLAINT: Difficulty eating. HISTORY OF PRESENT ILLNESS: Briefly, the patient is an 82-year-old male with multiple medical proble ms, who was admitted to the hospital on 09/06/2017 for a chief complaint of nausea, vomiting, and christine rrhea. He had been recently discharged from the hospital after a successful operative repair of a hip fracture. His hospital course then and now has been complicated by changing mental status, encephalo sarah, and difficulty cooperating with his inpatient plan of care. During this hospital stay, it has been noted that he is having difficulty eating. He reports difficul ty swallowing. He reports chewing and transfer are normal, but that during the initiation and passage of food through the esophagus and into the stomach, he will notice symptoms of discomfort, bloating, and early satiety. As a consequence of this, he has had very little to eat during his hospital stay. He reports that liquids go better than solids. His diarrhea seems to have resolved during his hospital visit. His inpatient evaluation has included laboratory tests as well as x-rays. MRI was suspicious for esop hagitis and gastric distention. Plain x-ray of the abdomen on 2 occasions revealed gastric distention . His hospital stay has also been notable for mild liver test abnormalities as well as the discovery of mild normocytic anemia with low iron saturation. ALLERGIES: The patient is allergic to tetracycline, azithromycin, nitrofurantoin, penicillin, as wel l as sulfa drugs. MEDICATIONS: His current active medications are Tylenol, Norvasc, aspirin, Proscar, Haldol, Zyprexa, Zofran, Protonix, Carafate, and Flomax. PAST MEDICAL HISTORY: Significant for intra-abdominal aortic aneurysm, peripheral vascular disease, atrial flutter, prior history of pulmonary embolism and DVT (although patient not currently on antico agulation), type 2 diabetes, cataracts, BPH, and anxiety. SOCIAL HISTORY: He has a distant history of heavy smoking. He does not drink alcohol. He had been li ving independently until his hip fracture. FAMILY HISTORY: Negative for colon cancer or colon polyps to his knowledge. REVIEW OF SYSTEMS: A complete 10-system review was undertaken with the patient and is negative, exce pt for those pertinent positives and negatives in the history of present illness. PHYSICAL EXAM: GENERAL: This is an elderly male in no apparent distress. HEENT: His pupils are equal , round, reactive to light and accommodation. His sclerae are nonicteric. His oropharynx is clear. NE CK: Supple without lymphadenopathy. HEART: Regular without murmur. ABDOMEN: Soft, nontender with norm oactive bowel sounds. EXTREMITIES: Free of cyanosis, clubbing, and edema. NEURO: Exam is grossly nonf ocal. PSYCH: Exam reveals a cooperative male with a stable mood and affect. MUSCULOSKELETAL: His join ts show no arthritis. LABORATORY TESTING: Reveals sodium of 146, potassium of 4.3, chloride of 108, bicarb of 27, BUN of 1 .1. Iron of 18, TIBC of 246, iron saturation of 7 with a ferritin of 141. AST of 80, ALT of 117, mariano line phosphatase is 76, total bilirubin of 1.4. Lipase of 381. Vitamin B12 482. TSH 1.98. Hepatitis A , B, and C serologies were negative. White count of 7.2, hemoglobin of 11.6, hematocrit of 36.9, plat elet count of 161. IMAGING: CT scan of the chest and thorax on 09/06/2017 revealed emphysema, abnormal esophagus relate d to reflux esophagitis or tumor, coronary artery disease, as well as gastric distention. Plain x-ray on 09/07/2017 revealed prominent gastric distention. Plain x-ray on 09/10/2017, again, revealed angel shanika distention. IMPRESSION AND RECOMMENDATIONS: The patient has been admitted to the hospital for nausea, vomiting, and diarrhea. His diarrhea symptoms appear to have resolved. He continues to have eating-related symp toms. His CT scan and plain x-ray are consistent with upper Gl pathology. The differential diagnosis might include peptic disease, esophagitis, ulcer, malignancy. The most direct way to evaluate those s ymptoms is likely to be with upper endoscopy. A barium swallow and upper GI endoscopy are also feasib le, but at this time, the patient is willing to undergo upper endoscopy. Iron-deficiency. He has a normocytic anemia at this point. His ferritin is normal, although he does h ave reduced iron saturation. Comprehensive evaluation of reduced iron might include colonoscopy or sm all bowel evaluation. I am not certain that those tests are warranted at this time. Given the risks o f undergoing colonoscopy, the patient's poor compliance with his medical treatment plan so far, it is unclear that there is a benefit to additional workup of this finding at this time. Abnormal liver tests. Ultrasound of the right upper quadrant was without finding. Initial serologic e valuation was negative. Liver tests appear to be slowly resolving. At this point, I recommend continu ed observation. If his liver tests remain abnormal, could consider additional serologic workup. There is no direct therapy for this finding at this time regardless. Given his obesity, chronic obstructive pulmonary disease, elderly age, underlying neurologic/psychiat shanika disease, he will be at increased risk of conscious sedation. We will arrange for his procedure to occur with the help of general anesthesia. /[id number]/MODL
[2017-09-12] MEDS ORDERED: METOCLOPRAMIDE 10 MG TAB PO SCH (17:30)
[2017-09-12] MEDS: METOCLOPRAMIDE 10 MG/2 ML VIAL IVP SCH (17:40)
[2017-09-12] MEDS: PANTOPRAZOLE SODIUM 40 MG TAB PO SCH (22:08)
[2017-09-13] MEDS: METOCLOPRAMIDE 10 MG/2 ML VIAL IVP SCH ×3 (09:35→17:15)
[2017-09-13] MEDS: SUCRALFATE 1 GM/10 ML UDCUP PO SCH ×4 (09:50→20:53)
[2017-09-13] MEDS: amLODIPine BESYLATE 5 MG TAB PO SCH (09:58)
[2017-09-13] MEDS: FINASTERIDE 5 MG TAB PO SCH (09:58)
[2017-09-13] MEDS: PANTOPRAZOLE SODIUM 40 MG TAB PO SCH ×2 (09:58→20:53)
[2017-09-13] MEDS: ASPIRIN 81 MG CHEWABLE TAB PO SCH (09:58)
[2017-09-13] MEDS: TAMSULOSIN HCL 0.4 MG CAP PO SCH (09:58)
[2017-09-13] MEDS: OLANZapine 2.5 MG TAB PO SCH ×2 (09:58→20:53)
--- NOTE | 2017-09-13 12:58 | HOSPPROG ---
Hospitalist Progress Note Assessment/Plan: N/V secondary to esophagitis, possible GOO - EGD 09/12 showed esophageal thickening, consider gastroparesis and associated reflux esophagitis. Discussed with Dr. Jones. Pt tolerating clears without ongoing N/V. -advance to full liquid diet -Cont PO PPI BID, carafate AC -trial reglan AC for motility -dietary consult to assist with gastroparesis diet -UGI study Friday am for further evaluation of gastric fundus, which was incompletely evaluated on EGD AHRF - CTA neg for PE. Query atelectatic. -IS, wean O2 as able S/P hip fracture repair - planned for Lovenox for 14 days post-op (thru 09/14), but pt has refused this and it was since d/c'd Metabolic encephalopathy - some agitation here, managed with zyprexa, query underlying dementia -cog eval Pressure injury - wound care BPH / urinary retention - indwelling melissa, flomax, proscar -f/u urology for voiding trial 1-2 weeks Hematuria - pink tinged urine noted in melissa today -check ua AAA - >6 cm, pt has refused endovascular stent or surgical intervention. He is aware he will imminently if this ruptures. PVD - followed by Dr. Dietrich. Has declined operative interventions. 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 No more N/V, though only taking clears. No abdominal pain. No fevers. +BM yesterday. Objective: Vital Signs Temp Pulse Resp BP Pulse Ox 36.9 C 79 17 136/68 H 94 09/13/17 11:36 09/13/17 11:36 09/13/17 11:36 09/13/17 11:36 09/13/17 11:36 Laboratory Results 09/12/17 04:49 09/13/17 04:38 09/12/17 09/13/17 09/14/17 05:59 05:59 05:59 Intake Total 675 1400 Output Total 1200 1000 Balance -525 400 - Physical Exam Constitutional: no apparent distress Eyes: PERRL Ears, Nose, Mouth, Throat: moist mucous membranes Cardiovascular: regular rate and rhythym Respiratory: no respiratory distress, clear to auscultation Gastrointestinal: normoactive bowel sounds, soft, non-tender abdomen Skin: warm Musculoskeletal: full muscle strength Neurologic: AAOx3 Psychiatric: interacting appropriately ICD10 Worksheet Patient Problems: Problems Problem Status Onset Atrial flutter Acute Hypoxemia Acute Vomiting Acute Cervical strain Acute Dehydration Acute Elevated troponin Acute Head injury Acute Nausea, vomiting, and diarrhea Acute Palliative care encounter Acute Pancreatitis Acute Pneumonia Acute Pulmonary embolus Acute Toe infection Acute
[2017-09-14] MEDS: METOCLOPRAMIDE 10 MG TAB PO SCH ×3 (09:48→18:03)
[2017-09-14] MEDS: SUCRALFATE 1 GM/10 ML UDCUP PO SCH ×4 (09:48→20:20)
[2017-09-14] MEDS: ASPIRIN 81 MG CHEWABLE TAB PO SCH (10:29)
[2017-09-14] MEDS: PANTOPRAZOLE SODIUM 40 MG TAB PO SCH ×2 (10:29→20:20)
[2017-09-14] MEDS: amLODIPine BESYLATE 5 MG TAB PO SCH (10:30)
[2017-09-14] MEDS: FINASTERIDE 5 MG TAB PO SCH (10:30)
[2017-09-14] MEDS: TAMSULOSIN HCL 0.4 MG CAP PO SCH (10:30)
[2017-09-14] MEDS: OLANZapine 2.5 MG TAB PO SCH ×2 (10:31→20:20)
--- NOTE | 2017-09-14 11:58 | WOCRNPDOC ---
WOCRN Advanced Assessment Note - Skin Integrity Problem, Advanced Assess Left Anterior Ankle Pressure Injury Dressing Type: Allevyn Life Dressing Description: Clean/Dry, Intact Exudate Amount: None Integumentary Issue Intervention: Visualized Under Dressing Cassi Wound Tissue: Blanching Wound Bed Color: Black, Purple, Red Wound Edges: Well Defined Site Measurement - Head-to-Toe Length X Width X Depth (cm): [id number] Pressure Injury Stage: Deep Tissue Injury (DTI) Pressure Injury Present on Admit: Yes Skin Integrity Problem Comment: Skin remains intact. Continue with currentl plan. DREA Dewitt in room for cares. Wound care will round again later next week. Left Heel Pressure Injury Dressing Type: Open to Air Other Dressing Type: heels floated on pillows, refusing heel mary Exudate Amount: None Cassi Wound Tissue: Blanching, Intact Wound Bed Constitution: Intact Serous Filled Blister Wound Edges: Well Defined Site Measurement - Head-to-Toe Length X Width X Depth (cm): [id number] Pressure Injury Stage: Deep Tissue Injury (DTI) Pressure Injury Present on Admit: Yes Skin Integrity Problem Comment: Patient showered this AM per DREA Dewitt. Tiele heel dressings removed following shower. Serous filled blister remains intact. Wound care will continue to follow, rounding again later this week. Demonstrated dressing orders for DREA Dewitt. All questions answered. Right Heel Pressure Injury Dressing Type: Open to Air Other Dressing Type: heels floated on pillows, refusing heel boots Wound Bed Constitution: Intact Serous Filled Blister Wound Edges: Well Defined Site Measurement - Head-to-Toe Length X Width X Depth (cm): 2x3.7xblister Pressure Injury Stage: Deep Tissue Injury (DTI) Pressure Injury Present on Admit: Yes Skin Integrity Problem Comment: Blister remains intact. Dressing to be applied by DREA Dewitt. Wound care will round again later this week. Left Knee Abrasion Dressing Type: Open to Air Exudate Amount: None Wound Bed Color: Black, Brown Wound Bed Constitution: Scab Wound Edges: Well Defined Site Measurement - Head-to-Toe Length X Width X Depth (cm): 3.6x2.7xscab Skin Integrity Problem Comment: Left knee abrasion of unknown etiology. Wound completely dry with adhered scab. Will initiate orders for this wound and continue to follow.
--- NOTE | 2017-09-14 12:10 | HOSPPROG ---
Hospitalist Progress Note Assessment/Plan: N/V secondary to esophagitis, possible GOO - EGD 09/12 showed esophageal thickening, consider gastroparesis and associated reflux esophagitis. Discussed with Dr. Jones. Pt tolerating full liquids without ongoing N/V. -UGI study in am for further evaluation of gastric fundus, which was incompletely evaluated on EGD -cont full liquid diet, advance tomorrow if no e/o GOO on UGI -Cont PO PPI BID, carafate AC -trial reglan AC for motility -dietary consulted to assist with gastroparesis diet AHRF - CTA neg for PE. Query atelectatic. -IS, wean O2 as able S/P hip fracture repair - planned for Lovenox for 14 days post-op (thru 09/14), but pt has refused this and it was since d/c'd. He continues to refuse. Metabolic encephalopathy - some agitation here, managed with zyprexa, query underlying dementia. Seems at baseline. Pressure injury - wound care BPH / urinary retention - indwelling melissa, flomax, proscar -f/u urology for voiding trial 1-2 weeks Hematuria - outpt f/u with urology if persists AAA - >6 cm, pt has refused endovascular stent or surgical intervention. He is aware he will imminently if this ruptures. PVD - followed by Dr. Dietrich. Has declined operative interventions. 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 No N/V. Tolerating full liquid diet. No fevers. No pain. He doesn't want to get out of bed, refusing therapy services. Objective: Vital Signs Temp Pulse Resp BP Pulse Ox 36.6 C 78 16 127/53 H 94 09/14/17 11:46 09/14/17 11:46 09/14/17 11:46 09/14/17 11:46 09/14/17 11:46 Laboratory Results 09/12/17 04:49 09/13/17 04:38 09/13/17 09/14/17 09/15/17 05:59 05:59 05:59 Intake Total 1400 650 Output Total 1000 1100 Balance 400 -450 - Physical Exam Constitutional: no apparent distress Eyes: PERRL Ears, Nose, Mouth, Throat: moist mucous membranes Cardiovascular: regular rate and rhythym, no murmur, rub, or gallop Respiratory: no respiratory distress, clear to auscultation Gastrointestinal: normoactive bowel sounds, soft, non-tender abdomen Skin: warm Musculoskeletal: full muscle strength Neurologic: AAOx3 Psychiatric: interacting appropriately ICD10 Worksheet Patient Problems: Problems Problem Status Onset Atrial flutter Acute Hypoxemia Acute Vomiting Acute Cervical strain Acute Dehydration Acute Elevated troponin Acute Head injury Acute Nausea, vomiting, and diarrhea Acute Palliative care encounter Acute Pancreatitis Acute Pneumonia Acute Pulmonary embolus Acute Toe infection Acute
[2017-09-14] MEDS: guaiFENesin/CODEINE PHOS 10 ML UDCUP PO PRN (20:20)
[2017-09-15] MEDS: OLANZapine 2.5 MG TAB PO SCH ×2 (09:48→20:40)
[2017-09-15] MEDS: ASPIRIN 81 MG CHEWABLE TAB PO SCH (09:49)
[2017-09-15] MEDS: amLODIPine BESYLATE 5 MG TAB PO SCH (09:49)
[2017-09-15] MEDS: METOCLOPRAMIDE 10 MG TAB PO SCH ×3 (09:49→20:41)
[2017-09-15] MEDS: PANTOPRAZOLE SODIUM 40 MG TAB PO SCH ×2 (09:49→20:40)
[2017-09-15] MEDS: FINASTERIDE 5 MG TAB PO SCH (09:50)
[2017-09-15] MEDS: SUCRALFATE 1 GM/10 ML UDCUP PO SCH ×3 (09:50→20:41)
[2017-09-15] MEDS: TAMSULOSIN HCL 0.4 MG CAP PO SCH (09:50)
--- NOTE | 2017-09-15 15:48 | HOSPPROG ---
Hospitalist Progress Note Assessment/Plan: N/V secondary to esophagitis - EGD 09/12 showed esophageal thickening, consider gastroparesis and associated reflux esophagitis. Discussed with Dr. Jones. Pt tolerating full liquids without ongoing N/V. UGI this am without e/o GOO, unable to visualize gastric antrum due to pt intolerance. Sub-optimal study. -advance to full regular diet and if tolerates, d/c back to SNF tomorrow -Cont PO PPI BID, carafate AC -reglan AC for motility AHRF - CTA neg for PE. Query atelectatic. -IS, wean O2 as able S/P hip fracture repair - planned for Lovenox for 14 days post-op (thru 09/14), but pt has refused this and it was since d/c'd. He continues to refuse. Metabolic encephalopathy - some agitation here, managed with prn zyprexa, query underlying dementia. Seems at baseline. Pressure injury - wound care BPH / urinary retention - indwelling melissa, flomax, proscar -f/u urology for voiding trial 1-2 weeks Hematuria - outpt f/u with urology if persists AAA - >6 cm, pt has refused endovascular stent or surgical intervention. He is aware he will imminently if this ruptures. PVD - followed by Dr. Dietrich. Has declined operative interventions. 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 Denies abdominal pain, N/V/D. He wants to eat regular food. Refusing therapy and doesn't get OOB. Objective: Vital Signs Temp Pulse Resp BP Pulse Ox 36.9 C 74 17 132/66 H 88 L 09/15/17 08:00 09/15/17 08:00 09/15/17 08:00 09/15/17 09:49 09/15/17 08:00 Laboratory Results 09/12/17 04:49 09/13/17 04:38 09/14/17 09/15/17 09/16/17 05:59 05:59 05:59 Intake Total 650 200 Output Total 1100 950 425 Balance -450 -750 -425 - Physical Exam Constitutional: no apparent distress Eyes: PERRL Ears, Nose, Mouth, Throat: moist mucous membranes Cardiovascular: regular rate and rhythym Respiratory: no respiratory distress, clear to auscultation Gastrointestinal: normoactive bowel sounds, soft, non-tender abdomen Skin: warm Musculoskeletal: full muscle strength Neurologic: AAOx3 Psychiatric: interacting appropriately ICD10 Worksheet Patient Problems: Problems Problem Status Onset Atrial flutter Acute Hypoxemia Acute Vomiting Acute Cervical strain Acute Dehydration Acute Elevated troponin Acute Head injury Acute Nausea, vomiting, and diarrhea Acute Palliative care encounter Acute Pancreatitis Acute Pneumonia Acute Pulmonary embolus Acute Toe infection Acute
[2017-09-15] MEDS: guaiFENesin/CODEINE PHOS 10 ML UDCUP PO PRN ×2 (16:22→20:41)
--- NOTE | 2017-09-15 17:00 | ASMTCMCOM ---
CM Note CM Note Notes: DC plan is still to [facility] SNF; Mona here today and updated. Met w/pt to discuss and he is still in agreement w/this plan. Date Signed: 09/15/2017 05:00 PM Electronically Signed By:Elza Sullivan RN
[2017-09-15 23:40] VITALS: RESP 16; TEMP 98.6
[2017-09-16 08:31] VITALS: BP 134/64; PULSE 79; O2SAT 90
--- NOTE | 2017-09-16 10:24 | PDIAF ---
- Diagnosis Diagnosis: H pylori Code Status: Full Code - Medication Management Discharge Medications: Medications to Continue on Transfer amLODIPine BESYLATE [Norvasc 5 mg (*)] 5 mg PO DAILY #30 tab 08/04/16 [Last Taken 08/30/17] Aspirin [Aspirin 81mg (*)] 81 mg PO DAILY #30 tab 09/05/17 [Last Taken Unknown] Enoxaparin [Lovenox 40 MG (*)] 40 mg SC DAILY #10 syr 09/05/17 [Last Taken Unknown] Finasteride [Proscar 5 MG (*)] 5 mg PO DAILY #30 tab 09/05/17 [Last Taken Unknown] OLANZapine [ZyPREXA 2.5 mg (*)] 2.5 mg PO BID #60 tab 09/05/17 [Last Taken Unknown] Tamsulosin HCl [Flomax 0.4 MG (*)] 0.4 mg PO DAILY #30 cap 09/05/17 [Last Taken Unknown] Lisinopril [Zestril 20 mg (*)] 20 mg PO DAILY 09/06/17 [Last Taken Unknown] Clarithromycin [Biaxin (*)] 500 mg PO BID #28 tab 09/16/17 [Last Taken Unknown] Pantoprazole Sodium [Protonix 40mg (*)] 40 mg PO BID #60 tab 09/16/17 [Last Taken Unknown] Sucralfate [Carafate 1gm/10ml Oral Liquid (*)] 1 gm PO AC #500 ml 09/16/17 [ Last Taken Unknown] metroNIDAZOLE [Flagyl 500 mg (*)] 500 mg PO TID #42 tab 09/16/17 [Last Taken Unknown] Discharge Medications: Refer to the Discharge Home Medication list for PRN reason. - Orders Services needed: Registered Nurse, Certified Geothermal Electrical Engineer, Physical Therapy, Occupational Therapy Isolation Type: None Diet Recommendation: no restrictions on diet - Follow Up Care Current Providers and Referrals: Patient,NotPresent [Unknown] - As per Instructions Rodney Jones MD [Medical Doctor] -
--- NOTE | 2017-09-16 10:26 | PDIAF ---
- Diagnosis Diagnosis: H pylori Code Status: Full Code - Medication Management Discharge Medications: Medications to Continue on Transfer amLODIPine BESYLATE [Norvasc 5 mg (*)] 5 mg PO DAILY #30 tab 08/04/16 [Last Taken 08/30/17] Aspirin [Aspirin 81mg (*)] 81 mg PO DAILY #30 tab 09/05/17 [Last Taken Unknown] Enoxaparin [Lovenox 40 MG (*)] 40 mg SC DAILY #10 syr 09/05/17 [Last Taken Unknown] Finasteride [Proscar 5 MG (*)] 5 mg PO DAILY #30 tab 09/05/17 [Last Taken Unknown] OLANZapine [ZyPREXA 2.5 mg (*)] 2.5 mg PO BID #60 tab 09/05/17 [Last Taken Unknown] Tamsulosin HCl [Flomax 0.4 MG (*)] 0.4 mg PO DAILY #30 cap 09/05/17 [Last Taken Unknown] Lisinopril [Zestril 20 mg (*)] 20 mg PO DAILY 09/06/17 [Last Taken Unknown] Clarithromycin [Biaxin (*)] 500 mg PO BID #28 tab 09/16/17 [Last Taken Unknown] Ferrous Sulfate [Iron] 325 mg PO DAILY #30 tablet 09/16/17 [Last Taken Unknown] Pantoprazole Sodium [Protonix 40mg (*)] 40 mg PO BID #60 tab 09/16/17 [Last Taken Unknown] Sucralfate [Carafate 1gm/10ml Oral Liquid (*)] 1 gm PO AC #500 ml 09/16/17 [ Last Taken Unknown] metroNIDAZOLE [Flagyl 500 mg (*)] 500 mg PO TID #42 tab 09/16/17 [Last Taken Unknown] Discharge Medications: Refer to the Discharge Home Medication list for PRN reason. - Orders Services needed: Registered Nurse, Certified Health Information Administrator, Physical Therapy, Occupational Therapy Isolation Type: None Diet Recommendation: no restrictions on diet - Follow Up Care Current Providers and Referrals: Rodney Jones MD [Medical Doctor] - Patient,NotPresent [Unknown] - As per Instructions
--- NOTE | 2017-09-16 10:29 | PDIAF ---
- Diagnosis Diagnosis: H pylori, hematuria, anemia Code Status: Full Code - Medication Management Discharge Medications: Medications to Continue on Transfer amLODIPine BESYLATE [Norvasc 5 mg (*)] 5 mg PO DAILY #30 tab 08/04/16 [Last Taken 08/30/17] Aspirin [Aspirin 81mg (*)] 81 mg PO DAILY #30 tab 09/05/17 [Last Taken Unknown] Finasteride [Proscar 5 MG (*)] 5 mg PO DAILY #30 tab 09/05/17 [Last Taken Unknown] OLANZapine [ZyPREXA 2.5 mg (*)] 2.5 mg PO BID #60 tab 09/05/17 [Last Taken Unknown] Tamsulosin HCl [Flomax 0.4 MG (*)] 0.4 mg PO DAILY #30 cap 09/05/17 [Last Taken Unknown] Lisinopril [Zestril 20 mg (*)] 20 mg PO DAILY 09/06/17 [Last Taken Unknown] Clarithromycin [Biaxin (*)] 500 mg PO BID #28 tab 09/16/17 [Last Taken Unknown] Ferrous Sulfate [Iron] 325 mg PO DAILY #30 tablet 09/16/17 [Last Taken Unknown] Pantoprazole Sodium [Protonix 40mg (*)] 40 mg PO BID #60 tab 09/16/17 [Last Taken Unknown] Sucralfate [Carafate 1gm/10ml Oral Liquid (*)] 1 gm PO AC #500 ml 09/16/17 [ Last Taken Unknown] metroNIDAZOLE [Flagyl 500 mg (*)] 500 mg PO TID #42 tab 09/16/17 [Last Taken Unknown] Discharge Medications: Refer to the Discharge Home Medication list for PRN reason. - Orders Services needed: Registered Nurse, Certified Manager Document, Physical Therapy, Occupational Therapy Isolation Type: None Diet Recommendation: no restrictions on diet Wound Care Instructions: wound care for pressure injury and LE wounds - Follow Up Care Current Providers and Referrals: Rodney Jones MD [Medical Doctor] - Patient,NotPresent [Unknown] - As per Instructions Prakash Ochoa MD [Medical Doctor] -
[2017-09-16] MEDS: FINASTERIDE 5 MG TAB PO SCH (10:40)
[2017-09-16] MEDS: METOCLOPRAMIDE 10 MG TAB PO SCH ×2 (10:40→13:14)
[2017-09-16] MEDS: OLANZapine 2.5 MG TAB PO SCH (10:40)
[2017-09-16] MEDS: ASPIRIN 81 MG CHEWABLE TAB PO SCH (10:40)
[2017-09-16] MEDS: SUCRALFATE 1 GM/10 ML UDCUP PO SCH ×2 (10:40→13:37)
[2017-09-16] MEDS: PANTOPRAZOLE SODIUM 40 MG TAB PO SCH (10:40)
[2017-09-16] MEDS: amLODIPine BESYLATE 5 MG TAB PO SCH (10:41)
[2017-09-16] MEDS: TAMSULOSIN HCL 0.4 MG CAP PO SCH (10:57)
--- NOTE | 2017-09-16 17:15 | ASDISCHSUM ---
Discharge Information Plan Status:SNF Medically Cleared to Leave: Discharge Date:09/16/2017 04:04 PM D/C Disposition:Alf Facility ADT D/C Disposition:Alf Facility Projected Discharge Date:09/14/2017 11:00 AM Transportation at D/C:ALS/BLS Discharge Delay Reason: Follow-Up Date:09/14/2017 11:00 AM Discharge Slot: Final Diagnosis: Placement Information Referral Type:*Prison/SNF Referral ID:[id number] Provider Name:[facility] Address 1:[address] Address 2: City:[place] Selection Factors: State:[place] Patient Contact Information Contact Name:BIANCA Relationship:Friend Address: Work Phone: [facility]:[place] Alternate Phone: [facility]/Zip Code:[place] Email: Financial Information Financial Class: Primary Plan Desc:MEDICARE INPATIENT Primary Plan Number:[id number] Secondary Plan Desc: Secondary Plan Number: Assessment Information LACE LACE Acuity / Level of Answers: Yes Care: Did the patient have an inpatient admission? Comorbidities - select Answers: Diabetes (uncontrolled or all that apply controlled) # of Emergency department Answers: 1-2 visits in the last 6 months Score: 5 Date Signed: 09/06/2017 01:53 PM Electronically Signed By:Ramya Murphy RN [facility] CLAUDIA Progress Note CM John TAYLOR Note Notes: Patient was discharged from yesterday to [facility] , s/p hip fracture and returns to ER today with c/o N/V and chills. Readmitted at this time to Dr. Valenzuela. I have contacted Alejandro to confirm patient's re admission at the hospital CM to follow with plans to discharge back to [facility] Date Signed: 09/06/2017 02:05 PM Electronically Signed By:Ramya Murphy RN [facility] CM Progress Note CM Note CM Note Notes: Spoke with Erin Grubbs PARTS DEPARTMENT SUPERVISOR, Krystin from [employer] regarding pt. Care Planning meeting arranged for tomorrow, 09/09/17 at 10am. Erin left voicemail alerting pt's proxy, Velia ([phone]) of meeting. Mary Juarez also alerted & plans to attend. & RN updated. Moan, from [facility], onsite; updates provided. CM will continue to follow. DC plan- SNF Date Signed: 09/08/2017 04:14 PM Electronically Signed By:Justina Stuart RN [facility] CM Progress Note CM Note CM Note Notes: Palliative care met again with pt and his proxy Velia. Staff was kept at a minimum in this morning's meeting as pt gets easily overwhelmed. He continues to wax and wane with his confusion and has not committed to any medical interventions at this time. Velia and will continue to encourage pt. CM tito continue to follow. Date Signed: 09/09/2017 02:43 PM Electronically Signed By:YANNICK Steel [facility] CM Progress Note CM Note CM Note Notes: Updates sent to [facility] today, plan remains d/c back to [facility]. CM to follow. Date Signed: 09/12/2017 04:21 PM Electronically Signed By:YANNICK Gandhi [facility] CM Progress Note CM Note CM Note Notes: DC plan is still to [facility] KERRI Dunn here today and updated. Met w/pt to discuss and he is still in agreement w/this plan. Date Signed: 09/15/2017 05:00 PM Electronically Signed By:Elza Sullivan RN [facility] CM Progress Note CM Note CM Note Notes: Pt medically stable for d/c back to [facility]; orders sent in [employer]. KWAME rodriguez scheduled for 16:00. left for YAMILETH Gunn. Date Signed: 09/16/2017 05:14 PM Electronically Signed By:YANNICK Gandhi Intervention Information Intervention Type:*IM-Signed Date of Service:09/16/2017 11:26 AM Patient Type:Inpatient Staff Member:Antionette Lomeli Hours: Discipline: Severity: Comment:
--- NOTE | 2017-09-16 17:15 | ASMTCMCOM ---
CM Note CM Note Notes: Pt medically stable for d/c back to [facility]; orders sent in [employer]. [facility] stretcher scheduled for 16:00. left for YAMILETH Gunn. Date Signed: 09/16/2017 05:14 PM Electronically Signed By:YANNICK Gandhi
--- NOTE | 2017-09-16 18:54 | GDS ---
[f rep st] DISCHARGE SUMMARY DISCHARGE DIAGNOSES: 1. Nausea, vomiting secondary to esophagitis, symptoms resolved. 2. Gastritis with biopsy positive for Helicobacter pylori. 3. Iron deficiency anemia. 4. Status post hip fracture repair. 5. Metabolic encephalopathy, resolved. 6. Pressure injury. 7. Urinary retention secondary to benign prostatic hypertrophy with chronic indwelling Le. Needs outpatient Urology followup. 8. Hematuria. Again, outpatient Urology followup. 9. Abdominal aortic aneurysm greater than 6 cm. The patient has refused stenting or surgical interv ention. 10. Peripheral vascular disease, followed by Dr. Dietrich. Patient has declined operative intervention s. 11. Atrial flutter. 12. Blindness secondary to cataracts. HISTORY: For details, please see the History and Physical dated September 06, 2017. In brief, the buster parsons is an 82-year-old male with multiple medical comorbidities, who presents to the emergency depart ment from [facility] after recent hip fracture repair with agitation, nausea, vomiting, and urinary r etention. He was admitted to the hospital for further management. HOSPITAL COURSE: The patient was admitted to the med/surg unit. He was continued on his Zyprexa for agitation. His mental status cleared. He was intermittently cooperative with recommendations; for example, he refused his postop Lovenox for DVT prophylaxis, acknowledging the risk of DVT and PE coul d be life-threatening. A Le catheter was maintained, and he was continued on Flomax and Proscar. He will need outpatient urology consultation for voiding trial as well as further evaluation of his hematuria. With respect to his nausea and vomiting, he underwent upper endoscopy which revealed esop hagitis and gastritis as well as a dilated stomach. There has been some question of gastroparesis. He was treated with PPI. The biopsy of his stomach was positive for H pylori and I am discharging hi m on triple therapy including clarithromycin, PPI and Flagyl, noting his penicillin allergy. He also likely warrants outpatient colonoscopy for further evaluation of his iron deficiency anemia. I will discharge him on oral iron. In addition, it is noted he had elevated liver enzymes, though these medrano ve been trending down. If this persists or worsens, further serologic testing may be warranted in e outpatient setting. OBJECTIVE ON DISCHARGE: The patient is hemodynamically stable with normal vital signs, saturating 92 % on room air. DISPOSITION: Patient is discharged back to longterm facility in stable condition. FOLLOWUP: 1. Dr. Rodney Jones, Gastroenterology. 2. Dr. Prakash Ochoa, Urology. DISCHARGE MEDICATIONS: Please see [employer] for completed outpatient medication list. New medication s on discharge include: 1. Clarithromycin 500 mg p.o. twice daily, #28, no refills. 2. Flagyl 500 mg p.o. 3 times daily, #42, no refills. 3. Protonix 40 mg p.o. twice daily, #60, no refills. 4. Sucralfate 1 g p.o. with meals, 500 mL. 5. Iron sulfate 325 mg p.o. daily, #30, no refills. He will continue all other outpatient medications as previously prescribed. His enoxaparin is discon tinued as he is greater than 14 days post-op, and he has refused this throughout most of the hospital ization anyway. /[id number]/MODL
== END 2017-09-16 16:04 | DRG 391 ==
LOC: EDUNIT# → F3N 13:42 → OBSVTOIN 14:02
PROVIDERS: ADMIT Internal Medicine; ATTEND Internal Medicine
PROC: 0DB68ZX Excision of Stomach, Via Natural or Artificial Opening Endoscopic, Diagnostic (ICD-10-PCS; principal; 2017-09-12 12:00)
PROC: 0DJ08ZZ Inspection of Upper Intestinal Tract, Via Natural or Artificial Opening Endoscopic (ICD-10-PCS; principal; 2017-09-12 12:00)
PROC: 0DB58ZX Excision of Esophagus, Via Natural or Artificial Opening Endoscopic, Diagnostic (ICD-10-PCS; principal; 2017-09-12 12:00)
PROC: 0DB98ZX Excision of Duodenum, Via Natural or Artificial Opening Endoscopic, Diagnostic (ICD-10-PCS; principal; 2017-09-12 12:00)
DX: K21.0 Gastro-esophageal reflux disease with esophagitis (principal); K31.1 Adult hypertrophic pyloric stenosis; K29.50 Unspecified chronic gastritis without bleeding; B96.81 Helicobacter pylori [H. pylori] as the cause of diseases classified elsewhere; R19.7 Diarrhea, unspecified; D50.9 Iron deficiency anemia, unspecified; G93.41 Metabolic encephalopathy; L89.520 Pressure ulcer of left ankle, unstageable; L89.620 Pressure ulcer of left heel, unstageable; L89.610 Pressure ulcer of right heel, unstageable; S72.002D Fracture of unspecified part of neck of left femur, subsequent encounter for closed fracture with routine healing; N40.1 Benign prostatic hyperplasia with lower urinary tract symptoms; R33.9 Retention of urine, unspecified; R31.0 Gross hematuria; F41.9 Anxiety disorder, unspecified; I71.4 Abdominal aortic aneurysm, without rupture; E11.9 Type 2 diabetes mellitus without complications; E66.09 Other obesity due to excess calories; I70.209 Unspecified atherosclerosis of native arteries of extremities, unspecified extremity; I48.92 Unspecified atrial flutter; H25.9 Unspecified age-related cataract; Z86.711 Personal history of pulmonary embolism; Z86.718 Personal history of other venous thrombosis and embolism; Z87.891 Personal history of nicotine dependence
CPT/HCPCS: 82607-90; 92610-GN; 96374; 97110-GP; 97116-GP; 97162-GP; 97167-GO; 97530-GO; 97530-GP; 97535-GO; G0472; G8978-GP-CL; G8979-GP-CJ; G8987-GO-CL; G8988-GO-CJ; G8996-GN-CH; G8997-GN-CH; G8998-GN-CH; J1630; J1650; J2060; J2405; J2704; J2765; J3010; J7613; Q9967

== ENCOUNTER 2018-06-07 23:47 | Inpatient (IN) | payer MEDICAID, OTHER ==
--- NOTE | 2018-06-08 00:01 | EDPHY ---
H & P Stated Complaint: fell and has right hip pain, cannot bear weight Time Seen by Provider: 06/07/18 23:51 HPI/ROS: CHIEF COMPLAINT: Right hip pain post mechanical fall HISTORY OF PRESENT ILLNESS: 83-year-old male arrives via ambulance complaining of acute right hip pain after he sustained a mechanical fall. He has a chair on wheels that he was getting up from, the chair slid away from him and he fell onto his right hip. Approximately 30 min of immobility on the floor before he could get to a phone. No head injury. No neck pain or injury. Unable to bear weight on said extremity. No alcohol or drug use. Intact skin. No bleeding. Denies: Chest pain or trauma, back pain or trauma, abdominal pain or trauma, dyspnea. PRIMARY CARE PROVIDER: REVIEW OF SYSTEMS: 10 systems reviewed and negative with the exception of the elements mentioned in the history of present illness PAST MEDICAL/SURGICAL HISTORY: Hypertension. Atrial flutter. Peripheral vascular disease. Left hip hemiarthroplasty by Dr. Jf Choi August 2017 SOCIAL HISTORY: denies alcohol use at time of incident PHYSICAL EXAM 1) GENERAL: Well-developed, well-nourished, alert and oriented. Appears uncomfortable, laying in a left lateral recumbent position. Answering questions appropriately. 2) HEAD: Normocephalic, atraumatic 3) HEENT: Pupils equal, round, reactive to light bilaterally. Negative Horners. Nasopharynx, oropharynx, clear. No deformity or angulation of nose. No septal hematoma. No rhinorrhea. No oral trauma. Ears bilaterally with normal tympanic membranes. No hemotympanum. No fluid or blood in the external auditory canal. No raccoon eyes. No To sign. Teeth are normally aligned with no gross malocclusion, TMJ bilaterally nontender, facial bones nontender including the zygomatic arch, maxilla mandible. 4) NECK: No cervical collar is on. Posterior cervical spine is nontender, no stepoff, no effusion. Full range of motion which does not elicit any midline cervical spine pain, no posterior midline tenderness, no step-off. 5) LUNGS: Clear to auscultation bilaterally, no wheezes, no rhonchi, no retractions. No obvious signs of trauma. No chest wall pain. No flaring, no grunting. Moving symmetrically. No crepitus. 6) HEART: Regular rate and rhythm, 7) ABDOMEN: No guarding, no rebound, no focal tenderness, no peritoneal signs, no signs of trauma, no ecchymosis 8) MUSCULOSKELETAL: Right lower extremity: Unable to assess leg length discrepancy secondary to patient keeping thigh flexed. He is focally tender to palpation greater trochanteric region. Intact skin. No ecchymosis. Distal femur, knee, tib-fib ankle and foot are nontender. DP PT pulses present and brisk. Otherwise, Moving all extremities, no focal areas of tenderness, no obvious trauma. 9) BACK: No midline vertebral tenderness, no fluctuance, no step-off, no obvious trauma, no visual or palpable abnormality. 10) SKIN: No laceration. 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 R foot drop. repeated falls, CHI, vertigo, osteomyolitis, Psoriasis. - Social History Smoking Status: Former smoker Constitutional: Initial Vital Signs Temperature (C) 37.1 C 06/07/18 23:51 Heart Rate 86 06/07/18 23:51 Respiratory Rate 16 06/07/18 23:51 Blood Pressure 178/90 H 06/07/18 23:51 O2 Sat (%) 83 L 06/07/18 23:51 O2 Delivery Mode Room Air Allergies/Adverse Reactions: Tetracyclines Allergy (Intermediate, Verified 06/07/18 23:50) Vomiting azithromycin Allergy (Unknown, Verified 06/07/18 23:50) Itching nitrofurantoin [From Macrobid] Allergy (Unknown, Verified 06/07/18 23:50) nitrofurantoin macrocrystalline [From Macrobid] Allergy (Unknown, Verified 06/07 23:50) Penicillins Allergy (Unknown, Verified 06/07/18 23:50) Sulfa (Sulfonamide Antibiotics) Allergy (Unknown, Verified 06/07/18 23:50) Home Medications: Medication Instructions Recorded amLODIPine BESYLATE [Norvasc 5 mg 5 mg PO DAILY #30 tab 08/04/16 (*)] Lisinopril [Zestril 20 mg (*)] 20 mg PO DAILY 09/06/17 Medical Decision Making ED Course/Re-evaluation: 12:39 a.m.: Consultation with on-call Dr. Mk Blancas who request patient remain NPO and he will consult with patient morning. Will plan on admission to hospitalist service. Case discussed with secondary supervising physician Dr. Summers in the ER. 1246 am: Consultation with hospitalist Dr Winslow who will admit patient 12:50 a.m.: Patient's power of assistant prosecuting attorney is at bedside. At this time, both she and the patient request consultation with Dr. Jf Choi who performed his left hemiarthroplasty August 2017. 1:01 a.m.: ER staff consulted [facility] for Orthopedics and was informed that Dr. Jf Choi is not available for consultation - Data Points Medications Given: Discontinued Medications Hydromorphone HCl (Dilaudid) 1 mg IVP EDNOW ONE Stop: 06/08/18 00:08 Last Admin: 06/08/18 00:32 Dose: 1 mg Departure - [facility] Clinical Impression: Displaced fracture of right femoral neck Condition: Fair
[2018-06-08] MEDS ORDERED: HYDROmorphONE/DILAUDID 2 MG/ML INJ IVP ONE (00:07)
[2018-06-08 01:07] LABS: PLATELET COUNT 117 10^3/uL (150-400)
[2018-06-08 01:13] LABS: INR 1.14 (0.83-1.16); PROTIME(PATIENT) 14.8 SEC (12.0-15.0)
[2018-06-08 01:16] LABS: CREATINE KINASE 70 IU/L (0-224)
[2018-06-08] MEDS ORDERED: ACETAMINOPHEN 325 MG TAB PO PRN (01:47)
[2018-06-08] MEDS ORDERED: ACETAMINOPHEN 650 MG SUPP PR PRN (01:47)
[2018-06-08] MEDS ORDERED: HYDROmorphONE/DILAUDID 1 MG/ML INJ IVP PRN (01:47)
[2018-06-08] MEDS ORDERED: HYDROCODONE/APAP 5/325 TAB PO PRN (01:47)
[2018-06-08] MEDS ORDERED: ONDANSETRON DISINTEGRATING 4 MG TAB PO PRN (01:47)
[2018-06-08] MEDS ORDERED: ONDANSETRON 4 MG/2 ML VIAL IVP PRN (01:47)
[2018-06-08] MEDS: NS 1,000 ML IV SCH ×2 (02:54→23:37)
--- NOTE | 2018-06-08 06:14 | PDIAF ---
- Diagnosis Diagnosis: right femoral neck fx Code Status: Full Code - Medication Management Discharge Medications: Medications to Continue on Transfer amLODIPine BESYLATE [Norvasc 5 mg (*)] 5 mg PO DAILY #30 tab 08/04/16 [Last Taken 08/30/17] Lisinopril [Zestril 20 mg (*)] 20 mg PO DAILY 09/06/17 [Last Taken Unknown] Discharge Medications: Refer to the Discharge Home Medication list for PRN reason. - Orders Services needed: Home Care, Physical Therapy Home Care Face to Face: I certify that this patient was under my care and that I had the required [id number] encounter meeting the encounter requirements on the discharge day. My findings support the fact that the patient is homebound as defined in Home Care Face to Face Continued: CMS Chapter 7 Medicare Benefits Manual 30.1.1 , The condition of the patient is such that there exists a normal inability to leave home and consequently, leaving home would require a considerable and taxing effort. Isolation Type: None Additional Instructions: TOTAL JOINT ARTHROPLASTY DISCHARGE INSTRUCTIONS 1. Your surgeon follows the [facility] protocol for reducing your risk of DVT (blood clots) following surgery. Medication will be ordered to prevent blood clots. A sudden increase in calf pain and/or swelling could indicate a blood clot in your leg. If this occurs, please call your surgeon or his/her assistant store director. An ultrasound of the leg may be necessary to diagnose a blood clot. If you have conditions that make you a higher risk for blood clots, your surgeon may use more aggressive ways to prevent them. Notify your surgeon if you think you are a high risk for blood clots. 2. Wear your white surgical stockings (SHAKEEL hose) for 2 weeks. This decreases your swelling and may help prevent blood clots. It is ok to remove SHAKEEL hose at night time to give your legs a break. 3. Swelling and bruising in the surgical leg is common. If you feel that it is excessive, please notify your surgeon. 4. Elevate your surgical leg with the ankle above the hip several times every day. Please keep the leg straight when you elevate by putting pillows under your foot. Do not put pillows under your knee. This will make being able to fully straighten more difficult. This is uncomfortable, but try to do it as much as possible. 5. For total knee replacements use compressive wrap on your knee for 3-5 days after surgery, then you can discontinue it. 6. Use a walker or crutches for 1-2 weeks. Progress your weight-bearing as tolerated. You may start to use a cane when you feel stable and safe. 7. You will receive physical therapy instructions in the hospital. Continue those exercises at home. There are additional exercises in the total joint booklet you were given before surgery. Outpatient physical therapy will begin 7- 10 days after surgery. Please schedule this in advance. 8. Use ice on your knee at least 3-5 times every day for 30 minutes. This helps reduce pain and swelling. Also use it at night before falling asleep. 9. Leave your surgical dressing in place for 2 weeks. Your dressing is water resistant, but not waterproof. Cover it with Saran Wrap or [id number] before showering. You may shower as soon as you feel safe entering a shower. If you notice bleeding from your incision 2 or 3 days after surgery, please notify your surgeon. 10. Due to narcotics, decreased activity and altered diet, most patients experience constipation after surgery. Use [id number] stool softeners while you are on narcotics. 11. You may drive a car when you are comfortable bearing weight, have good muscular control of your leg and are off narcotics. This usually occurs 2-4 weeks after surgery, depending on which leg was operated on. 12. If there are questions not addressed here, please refer the [facility] book given for more information. If you still have questions, please contact your surgeon s office. 13. If you have a life-threatening emergency, please call 911 and go to the emergency room immediately. For non-life threatening emergencies, please call your physicians office for advice before going to the emergency room. - Follow Up Care Current Providers and Referrals: Patient,NotPresent [Unknown] - As per Instructions Mk Blancas MD [Medical Doctor] -
--- NOTE | 2018-06-08 07:22 | CPEKG ---
Test Reason : OPEN Blood Pressure : / mmHG Vent. Rate : 077 BPM Atrial Rate : 000 BPM P-R Int : 158 ms QRS Dur : 102 ms QT Int : 411 ms P-R-T Axes : 081 -17 013 degrees QTc Int : 466 ms Sinus rhythm Supraventricular bigeminy Borderline left axis deviation Confirmed by Ruddy Summers ([id number]) on 06/08/2018 7:22:01 AM Referred By: Confirmed By:Ruddy Summers
--- NOTE | 2018-06-08 07:43 | GCON ---
CHIEF COMPLAINT: Right hip pain. HISTORY OF PRESENT ILLNESS: The patient is an 83-year-old gentleman with recurrent falls and previou s left hip replacement for femoral neck fracture who was climbing up out of a chair with wheels and s lipped and fell across his right side. He denied any loss of consciousness or dizziness. He was darrell ble to bear weight and was brought to the emergency department for further evaluation. X-rays demons trated a right hip fracture. He was admitted to the hospitalist service. PAST MEDICAL HISTORY: Of hypertension, atrial flutter, peripheral vascular disease. PAST SURGICAL HISTORY: Left hip hemiarthroplasty by Dr. Choi, August 2017. MEDICATIONS: See chart. ALLERGIES: Tetracyclines, azithromycin, Bactrim, penicillins, and sulfa. SOCIAL HISTORY: Previous smoker. No current alcohol or drugs. REVIEW OF SYSTEMS: Negative for current chest pain, shortness of breath, belly pain, back pain, numb ness, tingling, other joint-related complaints. OBJECTIVE: GENERAL: This is an elderly gentleman who is pleasant, cooperative with examination. HE ENT: Normocephalic, atraumatic. EXTREMITIES: Bilateral upper extremities are unremarkable. There is no crepitus, step-off, tenderness or deformity. He has spontaneous full gripping on both hands. He is tender across the right hip with palpation. There are no skin breaks. Right knee and remainde r of the lower extremity are without swelling, ecchymosis, crepitus, or step-off. He has intact plan tar flexion and dorsiflexion. There is no calf swelling or tenderness. Left lower extremity demonst rates a well-healed surgical incision consistent with the previous surgery. He has no tenderness acr oss the left hip, thigh, knee, lower extremity, and ankle. He has no swelling to the medial or later al malleoli. Negative Homans and no calf swelling. Sensation is grossly intact to light touch throu ghout both lower extremities. RADIOGRAPHS: AP pelvis demonstrates a right femoral neck fracture with posterior lateral displacemen t. He has a left swati arthroplasty. IMPRESSION: Right hip fracture. TREATMENT PLAN: I have recommended surgical replacement of his right hip. I have outlined the surgi nicole procedure, risks, benefits, and alternatives. He will remain n.p.o. and pain control today and w ill be set up for operative intervention this afternoon once medically cleared. /[id number]/MODL
--- NOTE | 2018-06-08 08:21 | PDGENHP ---
History and Physical - Chief Complaint Right hip pain - History of Present Illness Source-patient provides history appears reliable. His MD YAMILETH Gunn is at bedside supplements details. EMR was reviewed and case discussed with ED provider. HPI-pleasant 83 years at gentleman with past medical history significant for atrial fib and flutter, HTN, dm 2 diet controlled, PVD, AAA greater than 6 cm, remote history PE DVT, cataracts with blindness, spinal stenosis with right footdrop chronic back pain, history of osteomyelitis, psoriasis, BPH history of a urinary retention who presents emergency department today following a mechanical fall at home. Patient was watching the football game at home on his office chair that had wheels. He tried to stand up in the chair gave way and patient landed on his right side. He denies any head injury loss of consciousness. No preceding lightheadedness, shortness of breath, chest pain, palpitations. Patient does not wear any oxygen at home on a regular basis. He is no longer on a blood thinner for remote history of DVT or PE. Patient currently just takes 2 medications at home including his amlodipine and lisinopril. Patient has a known greater than 6 cm aortic aneurysm which was previously evaluated by Dr. Dietrich and Dr. Srinivasan. Recommendations for patient to undergo stent placement was made however patient declined this previously. Patient states that he is aware of all the risks involved in proceeding with surgery given his multiple medical problems but particularly his AAA. He desires to proceed with surgery today and repair his hip. Additionally patient's friend MD YAMILETH Gunn reports that patient is quite sensitive to narcotics and request that low doses be used and titrated upwards as patient has a history of becoming confused. History Information - Allergies/Home Medication List Allergies/Adverse Reactions: Tetracyclines Allergy (Intermediate, Verified 06/07/18 23:50) Vomiting azithromycin Allergy (Unknown, Verified 06/07/18 23:50) Itching nitrofurantoin [From Macrobid] Allergy (Unknown, Verified 06/07/18 23:50) nitrofurantoin macrocrystalline [From Macrobid] Allergy (Unknown, Verified 06/07 23:50) Penicillins Allergy (Unknown, Verified 06/07/18 23:50) Sulfa (Sulfonamide Antibiotics) Allergy (Unknown, Verified 06/07/18 23:50) Home Medications: Lisinopril [Zestril 20 mg (*)] 20 mg PO DAILY 09/06/17 [Last Taken 06/07/18] I have personally reviewed and updated: family history, medical history, social history, surgical history - Past Medical History Additional medical history: Hypertension. Abdominal aortic aneurysm > 6 cm. repair and stent was recommended by Dr. Dietrich and Dr. Srinivasan however patient did decline any intervention. Peripheral vascular disease. Diabetes type 2, diet controlled. History of falls. Spinal stenosis with history of right footdrop. Vertigo. History Of osteomyelitis. psoriasis. BPH with history of urinary retention requiring catheter. History PE DVT remotely not on anticoagulation at this time. Cataracts in and blindness but patient has declined any repair. Anxiety. Paroxysmal atrial fib flutter. - Surgical History Additional surgical history: Appendectomy. Left hip hemiarthroplasty after fracture 09/06/2017. - Family History Positive for: stroke (In mother) - Social History Smoking Status: Former smoker Alcohol Use: None Drug Use: None Additional social history: Patient currently lives alone in low-income housing. He has no family in this area reports having 1 daughter "somewhere.". Patient is MDPOA is Velia Fragoso a good friend and neighbor. COR - after lengthy decision with the patient he is unsure regarding his wishes for advanced directives but is amenable at this time to be left as a full code in the chart. Review of Systems Review of Systems: ROS: 10pt was reviewed & negative except for what was stated in HPI & below Physical Exam Physical Exam: Selected Entries 06/07/18 23:51 Blood Pressure Automatic Method Heart Rate 86 Respiratory 16 Rate O2 Sat (%) 83 L Temperature (C) 37.1 C Blood Pressure 178/90 H Mean Arterial 119 H Pressure (MAP) O2 Delivery Room Air Mode Temperature Oral Source Temp Pulse Resp BP Pulse Ox 36.9 C 80 16 153/75 H 91 L 06/08/18 03:05 06/08/18 03:05 06/08/18 03:05 06/08/18 03:05 06/08/18 03:05 O2 (L/minute) 3 Constitutional: no apparent distress, chronically ill appearing, uncomfortable, other (NAD. Pleasant elderly gentleman is lying quietly in bed and still. Friend/MD YAMILETH Fragoso at bedside.) Eyes: PERRL (Decreased reactivity light bilaterally but symmetric.), anicteric sclera, EOMI, other (Visual deficits), No scleral injection Ears, Nose, Mouth, Throat: moist mucous membranes, other (No nasal discharge) Cardiovascular: regular rate and rhythym (Slightly distant heart sounds.), no murmur, rub, or gallop, No edema Peripheral Pulses: 1+: dorsalis-pedis (R), dorsalis-pedis (L) Respiratory: no respiratory distress, no rales or rhonchi, clear to auscultation , reduced air movement (Decreased air movement bibasilarly.), No expiratory wheeze, No inspiratory crackles, No respiratory distress Gastrointestinal: normoactive bowel sounds, soft, non-tender abdomen, no palpable masses, No distension Genitourinary: no bladder tenderness, No melissa in urethra Skin: warm, normal color, other (Fine small Silvery plaques on his elbows hands) Musculoskeletal: generalized weakness, other (Patient is able to move all distal extremities his right lower extremity however is kept quite still. He does report pain with any kind of movement towards his right hip.) Neurologic: AAOx3, CN II-XII Intact, other (Grossly nonfocal exam. Slightly limited secondary to right hip pain and limited movement.), No facial droop Psychiatric: interacting appropriately, not anxious, not encephalopathic, thought process linear, No suicidal ideation, No poor insight, No poor judgement , No poor memory Lab Data & Imaging Review 06/08/18 00:55 06/08/18 00:55 WBC 7.54 10^3/uL (3.80-9.50) 06/08/18 00:55 RBC 4.71 10^6/uL (4.40-6.38) 06/08/18 00:55 Hgb 14.0 g/dL (13.7-17.5) 06/08/18 00:55 Hct 43.8 % (40.0-51.0) 06/08/18 00:55 MCV 93.0 fL (81.5-99.8) 06/08/18 00:55 MCH 29.7 pg (27.9-34.1) 06/08/18 00:55 MCHC 32.0 g/dL (32.4-36.7) L 06/08/18 00:55 RDW 14.3 % (11.5-15.2) 06/08/18 00:55 Plt Count 117 10^3/uL (150-400) L 06/08/18 00:55 MPV 10.1 fL (8.7-11.7) 06/08/18 00:55 Neut % (Auto) 83.8 % (39.3-74.2) H 06/08/18 00:55 Lymph % (Auto) 9.4 % (15.0-45.0) L 06/08/18 00:55 [place] % (Auto) 5.6 % (4.5-13.0) 06/08/18 00:55 Eos % (Auto) 0.7 % (0.6-7.6) 06/08/18 00:55 Baso % (Auto) 0.1 % (0.3-1.7) L 06/08/18 00:55 Nucleat RBC Rel Count 0.0 % (0.0-0.2) 06/08/18 00:55 Absolute Neuts (auto) 6.32 10^3/uL (1.70-6.50) 06/08/18 00:55 Absolute Lymphs (auto) 0.71 10^3/uL (1.00-3.00) L 06/08/18 00:55 Absolute Monos (auto) 0.42 10^3/uL (0.30-0.80) 06/08/18 00:55 Absolute Eos (auto) 0.05 10^3/uL (0.03-0.40) 06/08/18 00:55 Absolute Basos (auto) 0.01 10^3/uL (0.02-0.10) L 06/08/18 00:55 Absolute Nucleated RBC 0.00 10^3/uL (0-0.01) 06/08/18 00:55 Immature Gran % 0.4 % (0.0-1.1) 06/08/18 00:55 Immature Gran # 0.03 10^3/uL (0.00-0.10) 06/08/18 00:55 PT 14.8 SEC (12.0-15.0) 06/08/18 00:55 INR 1.14 (0.83-1.16) 06/08/18 00:55 APTT 30.5 SEC (23.0-38.0) 06/08/18 00:55 Sodium 144 mEq/L (135-145) 06/08/18 00:55 Potassium 4.6 mEq/L (3.3-5.0) 06/08/18 00:55 Chloride 109 mEq/L (97-110) 06/08/18 00:55 Carbon Dioxide 29 mEq/l (22-31) 06/08/18 00:55 Anion Gap 6 mEq/L (6-14) 06/08/18 00:55 BUN 35 mg/dL (7-23) H 06/08/18 00:55 Creatinine 1.2 mg/dL (0.7-1.3) 06/08/18 00:55 Estimated GFR 58 06/08/18 00:55 Glucose 105 mg/dL (70-100) H 06/08/18 00:55 Calcium 8.8 mg/dL (8.5-10.4) 06/08/18 00:55 Creatine Kinase 70 IU/L (0-224) 06/08/18 00:55 Urine Color YELLOW 06/08/18 06:20 Urine Appearance CLEAR 06/08/18 06:20 Urine pH 5.0 (5.0-7.5) 06/08/18 06:20 Ur Specific [place] 1.021 (1.002-1.030) 06/08/18 06:20 Urine Protein 1+ (NEGATIVE) H 06/08/18 06:20 Urine Ketones NEGATIVE (NEGATIVE) 06/08/18 06:20 Urine Blood 1+ (NEGATIVE) H 06/08/18 06:20 Urine Nitrate NEGATIVE (NEGATIVE) 06/08/18 06:20 Urine Bilirubin NEGATIVE (NEGATIVE) 06/08/18 06:20 Urine Urobilinogen 2.0 EU (0.2-1.0) H 06/08/18 06:20 Ur Leukocyte Esterase NEGATIVE (NEGATIVE) 06/08/18 06:20 Urine RBC 3-5 /hpf (0-3) H 06/08/18 06:20 Urine WBC 1-3 /hpf (0-3) 06/08/18 06:20 Ur Epithelial Cells NONE SEEN /lpf (NONE-1+) 06/08/18 06:20 Urine Bacteria TRACE /hpf (NONE SEEN) H 06/08/18 06:20 Urine Mucus TRACE /lpf (NONE-1+) 06/08/18 06:20 Urine Glucose NEGATIVE (NEGATIVE) 06/08/18 06:20 Imaging Review: Portable Chest, Single View June 07, 2018 2341 hours Indication: Pain. Comparison: Two-view chest dated September 06, 2017. Findings: The lungs are clear. Mild cardiomegaly is unchanged. No pneumothorax , consolidation, edema or effusion. Minimal linear scarring at the left base is unchanged. Impression: 1. Minimal left basilar atelectasis. Otherwise, clear lungs. 2. Cardiomegaly unchanged. Dictated By: Adams Weinstein MD Hip x-ray reviewed showing a right displaced femoral neck fracture. Left hip with hemiarthroplasty. EKG additional interpertation: Normal sinus rhythm. 70s. Bigeminy. No acute ST changes. QTC is 466. Assessment & Plan Assessment: pleasant 83 years at gentleman with past medical history significant for atrial fib and flutter, HTN, dm 2 diet controlled, PVD, AAA greater than 6 cm, remote history PE DVT, cataracts with blindness, spinal stenosis with right footdrop chronic back pain, history of osteomyelitis, psoriasis, BPH history of a urinary retention following mechanical fall now with right hip pain #Displaced fracture of right femoral neck (Acute) - patient seen by Dr. Blancas who plans to take patient to surgery later today. Patient with increased cardiovascular risks with his history of AAA, PVD however there is no contraindication at this time. Patient does acknowledge the increased risks of morbidity mortality. He declines any further evaluation by either surgery or Cardiology. He desires to proceed with surgery for his hip repair today. #AAA - perioperative and intraoperative blood pressure control be imperative. Goals SBP less than 120. Patient is not taking any beta-blockers but is on amlodipine and lisinopril. The given his morning dose to improved blood pressure control. # thrombocytopenia-patient without any previous history of thrombocytopenia. Unclear etiology. Will need to monitor very closely especially with postop anticoagulation. #Paroxysmal atrial fibrillation/flutter - patient currently normal sinus rhythm. Will be monitored on remote telemetry. He is not on any rate control medications at home. #Benign essential hypertension - blood pressures mildly elevated. Will give patient is morning lisinopril and amlodipine. Blood pressure control as noted above. #Dm 2 diet controlled - monitor blood sugars while patient is NPO. He is not taking any home medications. #History PVD #Spinal stenosis chronic back pain and chronic right footdrop #BPH with history urinary tension-patient with history of retention during hospital stays. He may require temporary placement of Melissa catheter. Will monitor his urine output and bladder scans if needed. #History of PE DVT-patient reports remote history of PE DVT. Will defer anticoagulation options to orthopedic service. #Cataract and blindness-patient with potential issues his sensory deprivation during his hospital stay. Will try to avoid over-sedation as a does lead to confusion. Fall precautions. Case was discussed in detail with oncoming hospitalist regarding in patient's history of AAA in his decision to proceed with surgery acknowledging there is increased risk of morbidity mortality with surgery.
[2018-06-08] MEDS ORDERED: LISINOPRIL 10 MG TAB PO SCH (09:00)
[2018-06-08] MEDS ORDERED: amLODIPine BESYLATE 5 MG TAB PO SCH (09:00)
[2018-06-08] MEDS ORDERED: THROMBIN (BOVINE) 5,000 UNIT VIAL TP ONE (09:13)
[2018-06-08] MEDS ORDERED: CALCIUM CHLORIDE 1 GM/10 ML INJ ONE (09:13)
[2018-06-08] MEDS ORDERED: BACITRACIN 50,000 UNITS/10 ML SYR IRR ONE ×2 (09:13→13:10)
--- NOTE | 2018-06-08 09:36 | HOSPPROG ---
Hospitalist Progress Note Assessment/Plan: Adams is an 83 y/o male with past medical history significant for atrial fib and flutter, HTN, dm 2 diet controlled, PVD, AAA greater than 6 cm, remote history PE DVT, cataracts with blindness, spinal stenosis with right footdrop chronic back pain, history of osteomyelitis, psoriasis, BPH history of a urinary retention following mechanical fall now with right hip pain. I reviewed his care with the hospitalist who admitted him last night. * acute displaced fracture of right femoral neck -OR today with Dr Blancas -has risks involved bucky with the AAA -patient didn't want any further evaluation, he wishes to proceed w surgery, but would like to talk w Dr Blancas again *pain due to this -doesn't want narcotics -order scheduled Tylenol *gait instability w associated fall -PT and OT *AAA - perioperative and intraoperative blood pressure control be imperative - goal of systolic bp <120 * thrombocytopenia -continued monitoring *Paroxysmal atrial fibrillation/flutter -reviewed tele and he is in sinus *Benign essential hypertension -resumed Norvasc and Lisinopril *Dm 2 diet controlled -will place on ADA diet after surgery -likely will need insulin *History PVD *Spinal stenosis chronic back pain -chronic right footdrop *BPH with history urinary tension -will monitor *History of PE DVT-patient reports remote history of PE DVT. -initiate LMWH in the post op settin *Cataract and blindness. -likely impacted him causing a fall *Plan: > 30 minutes f/u with patient and his MPOA. He wants more information about surgery, Dr Blancas saw earlier. Will f/u again to be sure he wants surgery. Will add scheduled Tylenol. His risk of a myocardial infarction or cardiac arrest is 0.9 %. Main issue is his aneurysm in which he wants no further evaluation. He knows this is a risk w surgery. Subjective: Adams is wanting more info on surgery and is hungry. Objective: Vital Signs Temp Pulse Resp BP Pulse Ox 37.2 C 80 16 145/63 H 93 06/08/18 08:00 06/08/18 08:00 06/08/18 08:00 06/08/18 08:00 06/08/18 08:00 Laboratory Results 06/08/18 00:55 06/08/18 00:55 06/07/18 06/08/18 06/09/18 05:59 05:59 05:59 Output Total 300 Balance -300 PT 14.8 SEC (12.0-15.0) 06/08/18 00:55 INR 1.14 (0.83-1.16) 06/08/18 00:55 - Physical Exam Constitutional: appears nourished Ears, Nose, Mouth, Throat: hearing normal Cardiovascular: regular rate and rhythym Respiratory: no respiratory distress Skin: warm, normal color Musculoskeletal: generalized weakness Psychiatric: poor memory, other (confused at times) ICD10 Worksheet Patient Problems: Problems Problem Status Onset Displaced fracture of right femoral neck Acute Atrial flutter Acute Cervical strain Acute Dehydration Acute Elevated troponin Acute Head injury Acute Hypoxemia Acute Nausea, vomiting, and diarrhea Acute Palliative care encounter Acute Pancreatitis Acute Pneumonia Acute Pulmonary embolus Acute Toe infection Acute Vomiting Acute
--- NOTE | 2018-06-08 10:28 | PDMN ---
Medical Necessity Medical necessity: MCG S600 Hip: Displaced Fracture of Femoral Neck, Hemiarthroplasty: 83 yo w/ mechanical fall, scans show R femoral neck fracture w / posterior lateral displacement. Pt scheduled for R HERNAN same day, MC IP only. Hx L HERNAN in Aug 2017, HTN, a flutter, PVD.
[2018-06-08] MEDS ORDERED: ACETAMINOPHEN 500 MG TAB PO ONE (10:30)
[2018-06-08] MEDS ORDERED: oxyCODONE IR 5 MG TAB PO PRN (10:43)
[2018-06-08] MEDS ORDERED: LR 1,000 ML IV ONE (12:15)
[2018-06-08] MEDS ORDERED: POLYMYXIN B SULFATE 500,000 UNIT/10 ML SYR IRR ONE (13:10)
--- NOTE | 2018-06-08 13:21 | POSTANESTH ---
Post Anesthetic Evaluation Cardiovascular Status: Normal, Stable Respiratory Status: Normal, Stable Level of Consciousness/Mental Status: Can Participate in Eval, Mildly Sleepy, Arousable Pain Control: Adequate, Prn Tx Ordered Nausea/Vomiting Control: Adequate, Prn Tx Ordered Complications Possibly Related to Anesthesia: None Noted Notes: Pt BP remaining stable for now. Will continue to monitor in PACU.
--- NOTE | 2018-06-08 13:24 | PDANEPAE ---
ANE History of Present Illness 83 yo male with R hip fracture secondary to mechanical fall. ANE Past Medical History - Cardiovascular History Hx Hypertension: Yes Hx Arrhythmias: Yes Hx Chest Pain: No Hx Coronary Artery / Peripheral Vascular Disease: Yes Hx CHF / Valvular Disease: No Cardiovascular History Comment: AAA 5.2 cm in 2016 - Pulmonary History Hx COPD: No Hx Asthma/Reactive Airway Disease: No Hx Recent Upper Respiratory Infection: No Hx Oxygen in Use at Home: No Hx Sleep Apnea: No Sleep Apnea Screening Result - Last Documented: Positive Pulmonary History Comment: hypoxia in hospital on 4 LPM with SpO2 94% - Endocrine History Hx Diabetes: Yes Hypothyroid: No Hyperthyroid: No Obesity: no - Renal History Hx Renal Disorders: No - Liver History Hx Hepatic Disorders: No - Neurological & Psychiatric Hx Hx Neurological and Psychiatric Disorders: No - Cancer History Hx Cancer: No - Congenital Disorder History Hx Congenital Disorders: No - Other Health History Other Health History: Poor vision. idiopathic thrombocytopenia - Chronic Pain History Chronic Pain: No ANE Review of Systems Review of Systems: - Systems Muscolosketal: Reports: joint pain ANE Patient History - Allergies Allergies/Adverse Reactions: Tetracyclines Allergy (Intermediate, Verified 06/07/18 23:50) Vomiting azithromycin Allergy (Unknown, Verified 06/07/18 23:50) Itching nitrofurantoin [From Macrobid] Allergy (Unknown, Verified 06/07/18 23:50) nitrofurantoin macrocrystalline [From Macrobid] Allergy (Unknown, Verified 06/07 23:50) Penicillins Allergy (Unknown, Verified 06/07/18 23:50) Sulfa (Sulfonamide Antibiotics) Allergy (Unknown, Verified 06/07/18 23:50) - Home Medications Home Medications: Lisinopril [Zestril 20 mg (*)] 20 mg PO DAILY 09/06/17 [Last Taken 06/07/18] - NPO status NPO Since - Liquids (Date): 06/08/18 NPO Since - Liquids (Time): 07:00 NPO Since - Solids (Date): 06/07/18 NPO Since - Solids (Time): 10:00 - Anes Hx Anes Hx: no prior problems - Smoking Hx Smoking Status: Former smoker - Alcohol Use Alcohol Use: None - Family Anes Hx Family Anes Hx: neg - N/A ANE Labs/Vital Signs - Labs Result Diagrams: 06/08/18 00:55 06/08/18 00:55 - Vital Signs Blood Pressure: 131/67 Heart Rate: 79 Respiratory Rate: 19 O2 Sat (%): 94 Height: 198.12 cm Weight: 97.522 kg ANE Physical Exam - Airway Neck exam: decreased ROM Mallampati Score: Class 4 Mouth exam: poor dentition - Pulmonary Pulmonary: reduced air movement - Cardiovascular Cardiovascular: regular rate and rhythym, other (extra early heart sound) - ASA Status ASA Status: III ANE Anesthesia Plan Anesthesia Plan: general endotracheal anesthesia
[2018-06-08] MEDS ORDERED: ROPI/epINEPH/KETOROLAC/morphINE IU ONE (13:30)
[2018-06-08] MEDS ORDERED: LIDOCAINE 2% 2 ML INJ ONE (13:40)
[2018-06-08] MEDS ORDERED: PROPOFOL 200 MG/20 ML VIAL ONE (13:40)
[2018-06-08] MEDS ORDERED: ROCURONIUM 100 MG/10 ML VIAL ONE (13:40)
[2018-06-08] MEDS ORDERED: DEXAMETHASONE 4 MG/ML VIAL ONE (13:40)
[2018-06-08] MEDS ORDERED: fentaNYL 100 MCG/2 ML INJ ONE ×3 (13:40→16:30)
[2018-06-08] MEDS ORDERED: VANCOMYCIN HCL/NORMAL SALINE 250 ML IV ONE (14:00)
--- NOTE | 2018-06-08 14:03 | ASMTCMCOM ---
CM Note CM Note Notes: Pt to OR today for hip fx after fall at home. Pt has been to [facility] a couple times in recent past. Pt MDPOA is Velia Fragoso, she is present and wants to complete living will (web specialist contacted) and financial POA today. Velia reports she has been working with an clean up helper banquet and she is informed she need to secure to OA from the clean up helper banquet not [facility]. Pt verbalizes he hopes he does not have d/c to SNF and go home. PT/OT to eval when appropriate. CM to follow for d/c planning. Date Signed: 06/08/2018 02:02 PM Electronically Signed By:YANNICK Gandhi
[2018-06-08] MEDS ORDERED: ePHEDrine SULFATE 25 MG/5 ML SYR ONE (14:24)
[2018-06-08] MEDS ORDERED: *INTRAOP 1000MG*TRANEX ACID/NS 100 ML IV ONE (14:30)
[2018-06-08] MEDS ORDERED: MIDAZOLAM 2 MG/2 ML VIAL ONE (15:19)
[2018-06-08] MEDS ORDERED: VASOPRESSIN 20 UNIT/ML VIAL ONE (15:25)
[2018-06-08] MEDS ORDERED: GLYCOPYRROLATE 0.2 MG/1 ML VIAL ONE ×3 (15:25→15:48)
[2018-06-08] MEDS ORDERED: NEOSTIGMINE METHYLSULFATE 5 MG/5 ML SYR ONE (15:48)
[2018-06-08] MEDS ORDERED: LR 250 ML IV PRN (15:52)
[2018-06-08] MEDS ORDERED: DIAZEPAM 5 MG/ML 1 ML SYR IVP PRN (15:52)
[2018-06-08] MEDS ORDERED: ALBUTEROL 3 ML DEYVIAL IH PRN (15:52)
[2018-06-08] MEDS ORDERED: NALOXONE HCL 0.4 MG/ML INJ IVP PRN (15:52)
--- NOTE | 2018-06-08 16:26 | POSTOPPROG ---
Post Op Note Date of Operation: 06/08/18 Surgeon: Mk Blancas Welding Machine Operator Electron Beam: micheal Anesthesiologist: kamila Anesthesia: Spinal Pre-op Diagnosis: right femoral neck fx Post-op Diagnosis: same Indication: same Procedure: right jose Inf/Abcess present in the surg proc area at time of surgery?: No Depth: Deep Incisional (Fascial) EBL: 100-500 Drains: Hemovac
[2018-06-08] MEDS ORDERED: HYDROmorphONE/DILAUDID 2 MG/ML INJ ONE (16:30)
[2018-06-08] MEDS ORDERED: ONDANSETRON 4 MG/2 ML VIAL ONE ×2 (16:36→19:08)
[2018-06-08] MEDS: ONDANSETRON 4 MG/2 ML VIAL IVP PRN ×2 (16:37→19:14)
[2018-06-08] MEDS: fentaNYL 100 MCG/2 ML INJ IVP PRN ×3 (16:39→17:34)
[2018-06-08] MEDS: ACETAMINOPHEN 500 MG TAB PO SCH ×2 (17:01→23:11)
[2018-06-08] MEDS ORDERED: ACETAMINOPHEN 325 MG TAB ONE (17:24)
[2018-06-09] MEDS ORDERED: VANCOMYCIN HCL/NORMAL SALINE 250 ML IV ONE (01:00)
[2018-06-09] MEDS: ACETAMINOPHEN 500 MG TAB PO SCH ×4 (05:19→21:48)
[2018-06-09 05:31] LABS: PLATELET COUNT 101 10^3/uL (150-400)
--- NOTE | 2018-06-09 07:14 | SOAPPROG ---
SOAP Progress Note Assessment/Plan: Assessment: s/p right jose Plan:dvt precautions ok to anticoagulate follow hct post op anemia will need snf 06/09/18 07:12 Subjective: mild pain no cp or sob Objective: Vital Signs Temp Pulse Resp BP Pulse Ox 36.5 C 76 16 108/47 L 93 06/09/18 03:03 06/09/18 03:03 06/09/18 03:03 06/09/18 03:03 06/09/18 03:03 Laboratory Results 06/09/18 04:57 06/09/18 04:57 06/08/18 06/09/18 06/10/18 05:59 05:59 05:59 Intake Total 5825 Output Total 1090 Balance 4735 PT 14.8 SEC (12.0-15.0) 06/08/18 00:55 INR 1.14 (0.83-1.16) 06/08/18 00:55 pt pulled off dressing and drain tube yest new dressing intact intact pf,df,ehl toes warm and pink neg homans zeynep xrays stable anatomic alignment ICD10 Worksheet Patient Problems: Problems Problem Status Onset Displaced fracture of right femoral neck Acute Atrial flutter Acute Cervical strain Acute Dehydration Acute Elevated troponin Acute Head injury Acute Hypoxemia Acute Nausea, vomiting, and diarrhea Acute Palliative care encounter Acute Pancreatitis Acute Pneumonia Acute Pulmonary embolus Acute Toe infection Acute Vomiting Acute
--- NOTE | 2018-06-09 08:29 | HOSPPROG ---
Hospitalist Progress Note Assessment/Plan: Adams is an 83 y/o male with past medical history significant for atrial fib and flutter, HTN, dm 2 diet controlled, PVD, AAA greater than 6 cm, remote history PE DVT, cataracts with blindness, spinal stenosis with right footdrop chronic back pain, history of osteomyelitis, psoriasis, BPH history of a urinary retention following mechanical fall now with right hip pain. * acute displaced fracture of right femoral neck -s/p R TKA *pain due to this -doesn't want narcotics -order scheduled Tylenol and prn tramadol *hyperkalemia -stop ACEI, once this improves; should resume *acute renal insufficiency -normal saline -recheck in a.m. *gait instability w associated fall -PT and OT *AAA - goal of systolic bp <120 * thrombocytopenia -continued monitoring *anemia, blood loss -will recheck in the a.m. *Paroxysmal atrial fibrillation/flutter -reviewed tele and he is in sinus *Benign essential hypertension -resumed Norvasc and Lisinopril (on Hold) *Dm 2 diet controlled -will place on ADA diet after surgery -likely will need insulin *History PVD *Spinal stenosis chronic back pain -chronic right footdrop *BPH with history urinary tension -will monitor *History of PE DVT-patient reports remote history of PE DVT. -initiate LMWH *Cataract and blindness. -likely impacted him causing a fall *dvt prophylaxis: he is very high risk, heparin TID *Plan: recheck K later today, hydrate w normal saline, hold lisinopril, recheck labs in a.m. Subjective: Adams is having some nausea this morning, doesn't want to eat or drink. Objective: Vital Signs Temp Pulse Resp BP Pulse Ox 36.8 C 72 18 111/36 L 95 06/09/18 07:12 06/09/18 07:12 06/09/18 07:12 06/09/18 07:12 06/09/18 07:12 Laboratory Results 06/09/18 04:57 06/09/18 04:57 06/08/18 06/09/18 06/10/18 05:59 05:59 05:59 Intake Total 5825 Output Total 1090 Balance 4735 PT 14.8 SEC (12.0-15.0) 06/08/18 00:55 INR 1.14 (0.83-1.16) 06/08/18 00:55 - Physical Exam Constitutional: appears nourished, chronically ill appearing, uncomfortable Ears, Nose, Mouth, Throat: hearing normal Cardiovascular: regular rate and rhythym Respiratory: no respiratory distress Gastrointestinal: soft, non-tender abdomen Skin: warm, other (right hip w swelling), No normal color (pale) Musculoskeletal: muscular tenderness Psychiatric: interacting appropriately, poor judgement, poor memory ICD10 Worksheet Patient Problems: Problems Problem Status Onset Displaced fracture of right femoral neck Acute Atrial flutter Acute Cervical strain Acute Dehydration Acute Elevated troponin Acute Head injury Acute Hypoxemia Acute Nausea, vomiting, and diarrhea Acute Palliative care encounter Acute Pancreatitis Acute Pneumonia Acute Pulmonary embolus Acute Toe infection Acute Vomiting Acute
[2018-06-09] MEDS ORDERED: LISINOPRIL 20 MG TAB PO SCH (09:00)
[2018-06-09] MEDS: NS 1,000 ML IV SCH ×2 (10:53→21:35)
[2018-06-09] MEDS: traMADol 50 MG TAB PO PRN (11:01)
[2018-06-09] MEDS: VANCOMYCIN HCL/NORMAL SALINE 250 ML IV SCH ×2 (12:34→19:46)
[2018-06-09] MEDS: amLODIPine BESYLATE 5 MG TAB PO SCH (14:01)
[2018-06-09] MEDS: HEPARIN 5,000 UNIT/0.5 ML INJ SC SCH ×2 (14:23→21:38)
--- NOTE | 2018-06-09 16:21 | ASMTCMCOM ---
CM Note CM Note Notes: PT rec SNF. Attempted to talk to pt four times about d/c planning, he was sleeping all afternoon and unarousable. CM will try in the morning to discuss d/c with pt, maybe JACOB Gunn will be at hospital. CM to follow. Date Signed: 06/09/2018 04:21 PM Electronically Signed By:YANNICK Gandhi
[2018-06-10] MEDS: HEPARIN 5,000 UNIT/0.5 ML INJ SC SCH ×3 (05:39→22:35)
[2018-06-10] MEDS: NS 1,000 ML IV SCH ×2 (05:43→15:39)
[2018-06-10] MEDS: ACETAMINOPHEN 500 MG TAB PO SCH ×4 (05:50→22:32)
--- NOTE | 2018-06-10 06:27 | SOAPPROG ---
SOAP Progress Note Assessment/Plan: Assessment: s/p right jose Plan:dvt precautions ok to anticoagulate follow hct post op anemia will need snf 06/09/18 07:12 06/10/18 06:26 Subjective: sleeping Objective: Vital Signs Temp Pulse Resp BP Pulse Ox 37.2 C 86 16 104/43 L 92 06/10/18 04:00 06/10/18 04:00 06/10/18 04:00 06/10/18 04:00 06/10/18 04:00 Laboratory Results 06/09/18 04:57 06/09/18 15:35 06/09/18 06/10/18 06/11/18 05:59 05:59 05:59 Intake Total 5825 2664 Output Total 1090 1200 Balance 4735 1464 PT 14.8 SEC (12.0-15.0) 06/08/18 00:55 INR 1.14 (0.83-1.16) 06/08/18 00:55 deferred ICD10 Worksheet Patient Problems: Problems Problem Status Onset Displaced fracture of right femoral neck Acute Atrial flutter Acute Cervical strain Acute Dehydration Acute Elevated troponin Acute Head injury Acute Hypoxemia Acute Nausea, vomiting, and diarrhea Acute Palliative care encounter Acute Pancreatitis Acute Pneumonia Acute Pulmonary embolus Acute Toe infection Acute Vomiting Acute
[2018-06-10] MEDS: traMADol 50 MG TAB PO PRN (09:49)
[2018-06-10] MEDS: amLODIPine BESYLATE 5 MG TAB PO SCH (09:49)
--- NOTE | 2018-06-10 15:43 | ASMTCMCOM ---
CM Note CM Note Notes: Pt owes [facility] $8k. Pt still confused today, JACOB Gunn reports pt has no money. Pt may have 60 days out of SNF, may be able to get into another SNF and start over on Medicare days, referrals sent to [facility] and [facility] in [place]. Date Signed: 06/10/2018 03:42 PM Electronically Signed By:YANNICK Gandhi
--- NOTE | 2018-06-10 16:04 | ASMTCMCOM ---
CM Note CM Note Notes: Med data to screen pt for Medicaid. Date Signed: 06/10/2018 04:04 PM Electronically Signed By:YANNICK Gandhi
--- NOTE | 2018-06-10 17:24 | HOSPPROG ---
Hospitalist Progress Note Assessment/Plan: Adams is an 83 y/o male with past medical history significant for atrial fib and flutter, HTN, dm 2 diet controlled, PVD, AAA greater than 6 cm, remote history PE DVT, cataracts with blindness, spinal stenosis with right footdrop chronic back pain, history of osteomyelitis, psoriasis, BPH history of a urinary retention following mechanical fall now with right hip pain. First encounter, chart reviewed. * acute displaced fracture of right femoral neck -s/p R TKA *pain due to this -doesn't want narcotics -scheduled Tylenol and prn tramadol *hyperkalemia -stop ACEI, once this improves; should resume *acute renal insufficiency -normal saline -recheck in a.m. *gait instability w associated fall -PT and OT *AAA - goal of systolic bp <120 * thrombocytopenia -continued monitoring *anemia, blood loss -will recheck in the am *Paroxysmal atrial fibrillation/flutter -reviewed tele and he is in sinus *Benign essential hypertension -resumed Norvasc and Lisinopril (on Hold) *Dm 2 diet controlled -ADA diet -likely will need insulin *History PVD *Spinal stenosis chronic back pain -chronic right footdrop *BPH with history urinary tension -will monitor *History of PE DVT-patient reports remote history of PE DVT. -initiate LMWH *Cataract and blindness. -likely impacted him causing a fall *dvt prophylaxis: he is very high risk, heparin TID *Plan: recheck K and h/h in am hydrate w normal saline, hold lisinopril Subjective: Confused. No pain. No specific issues. Objective: Vital Signs Temp Pulse Resp BP Pulse Ox 36.4 C 85 86 H 124/56 H 3 L 06/10/18 16:54 06/10/18 16:54 06/10/18 16:54 06/10/18 16:54 06/10/18 16:54 Laboratory Results 06/10/18 10:00 06/10/18 10:00 06/09/18 06/10/18 06/11/18 05:59 05:59 05:59 Intake Total 5831 2664 2450 Output Total 1090 1200 Balance 4735 1464 2450 PT 14.8 SEC (12.0-15.0) 06/08/18 00:55 INR 1.14 (0.83-1.16) 06/08/18 00:55 - Physical Exam Constitutional: appears nourished, not in pain, chronically ill appearing Eyes: PERRL, anicteric sclera, EOMI Ears, Nose, Mouth, Throat: moist mucous membranes, hearing normal, ears appear normal Cardiovascular: regular rate and rhythym, No JVD, No edema Respiratory: no respiratory distress, no rales or rhonchi, reduced air movement Gastrointestinal: normoactive bowel sounds, No tenderness, No guarding Skin: warm, normal color, No mottled Musculoskeletal: joint tenderness, pain with ROM, generalized weakness Neurologic: No AAOx3 Psychiatric: not anxious, poor insight, poor judgement, poor memory ICD10 Worksheet Patient Problems: Problems Problem Status Onset Nausea, vomiting, and diarrhea Acute Pancreatitis Acute Dehydration Acute Hypoxemia Acute Head injury Acute Cervical strain Acute Pulmonary embolus Acute Elevated troponin Acute Palliative care encounter Acute Pneumonia Acute Toe infection Acute Atrial flutter Acute Vomiting Acute Displaced fracture of right femoral neck Acute
[2018-06-11] MEDS: traMADol 50 MG TAB PO PRN (01:25)
[2018-06-11] MEDS: NS 1,000 ML IV SCH ×2 (02:21→18:34)
[2018-06-11] MEDS ORDERED: OLANZapine 10 MG/2 ML VIAL IM ONE (03:45)
[2018-06-11] MEDS: HEPARIN 5,000 UNIT/0.5 ML INJ SC SCH ×4 (06:05→21:35)
[2018-06-11] MEDS: ACETAMINOPHEN 500 MG TAB PO SCH ×3 (06:07→21:35)
--- NOTE | 2018-06-11 06:52 | SOAPPROG ---
SOAP Progress Note Assessment/Plan: Assessment: s/p right jose Plan:dvt precautions ok to anticoagulate follow hct post op anemia will need snf continue to mobilize with pt/ot f/u at two weeks seek attn for increasing pain, leg pain or other focal complaint 06/09/18 07:12 06/10/18 06:26 06/11/18 06:50 Subjective: sleeping Objective: Vital Signs Temp Pulse Resp BP Pulse Ox 36.9 C 93 16 134/73 H 91 L 06/11/18 00:00 06/11/18 04:17 06/11/18 00:00 06/11/18 04:17 06/11/18 04:17 Laboratory Results 06/11/18 04:46 06/11/18 04:46 06/10/18 06/11/18 06/12/18 05:59 05:59 05:59 Intake Total 2664 3669 200 Output Total 1200 300 200 Balance 1464 3369 0 PT 14.8 SEC (12.0-15.0) 06/08/18 00:55 INR 1.14 (0.83-1.16) 06/08/18 00:55 dressing intact no erythema or drainage no calf swellling zeynep limited ICD10 Worksheet Patient Problems: Problems Problem Status Onset Displaced fracture of right femoral neck Acute Atrial flutter Acute Cervical strain Acute Dehydration Acute Elevated troponin Acute Head injury Acute Hypoxemia Acute Nausea, vomiting, and diarrhea Acute Palliative care encounter Acute Pancreatitis Acute Pneumonia Acute Pulmonary embolus Acute Toe infection Acute Vomiting Acute
[2018-06-11] MEDS ORDERED: BISACODYL 10 MG SUPP PR PRN (09:35)
[2018-06-11] MEDS: amLODIPine BESYLATE 5 MG TAB PO SCH ×2 (11:57→12:25)
--- NOTE | 2018-06-11 15:23 | ASMTCMCOM ---
CM Note CM Note Notes[facility] completed on-site assessment today. Pt likely d/c tomorrow. CM to follow. Date Signed: 06/11/2018 03:22 PM Electronically Signed By:YANNICK Gandhi
--- NOTE | 2018-06-11 16:33 | HOSPPROG ---
Hospitalist Progress Note Assessment/Plan: Adams is an 83 y/o male with past medical history significant for atrial fib and flutter, HTN, dm 2 diet controlled, PVD, AAA greater than 6 cm, remote history PE DVT, cataracts with blindness, spinal stenosis with right footdrop chronic back pain, history of osteomyelitis, psoriasis, BPH history of a urinary retention following mechanical fall now with right hip pain. * acute displaced fracture of right femoral neck -s/p R TKA *pain due to this -doesn't want narcotics -scheduled Tylenol and prn tramadol *hyperkalemia -stop ACEI -resolved *acute renal insufficiency -normal saline -better -no ACEI *gait instability w associated fall -PT and OT *AAA - goal of systolic bp <120 * thrombocytopenia -continued monitoring *Constipation -therapy *anemia, blood loss -stable *Paroxysmal atrial fibrillation/flutter -flutter today -DC tele *Benign essential hypertension -resumed Norvasc and Lisinopril -stable *Dm 2 diet controlled -ADA diet -likely will need insulin *History PVD *Spinal stenosis chronic back pain -chronic right footdrop *BPH with history urinary tension -will monitor *History of PE DVT-patient reports remote history of PE DVT. -initiate LMWH *Cataract and blindness. -likely impacted him causing a fall *dvt prophylaxis: he is very high risk, heparin TID *Plan: check H/H and renal function in am hope for DC to rehab in am reviewed with the RN Subjective: In bed. Tired. No issues. Objective: Vital Signs Temp Pulse Resp BP Pulse Ox 37.5 C 98 16 137/102 H 97 06/11/18 15:55 06/11/18 15:55 06/11/18 15:55 06/11/18 15:55 06/11/18 15:55 Laboratory Results 06/11/18 04:46 06/11/18 04:46 06/10/18 06/11/18 06/12/18 05:59 05:59 05:59 Intake Total 2664 3669 200 Output Total 1200 300 850 Balance 1464 3369 -650 PT 14.8 SEC (12.0-15.0) 06/08/18 00:55 INR 1.14 (0.83-1.16) 06/08/18 00:55 - Physical Exam Constitutional: appears nourished, chronically ill appearing Eyes: anicteric sclera, EOMI Ears, Nose, Mouth, Throat: moist mucous membranes, hearing normal Cardiovascular: irregularly irregular, No JVD, No edema Respiratory: no respiratory distress, reduced air movement Gastrointestinal: No tenderness, No ascites Skin: warm, normal color Musculoskeletal: pain with ROM, muscular tenderness, abnormal gait, generalized weakness Psychiatric: not anxious, not encephalopathic, poor insight, poor judgement, poor memory ICD10 Worksheet Patient Problems: Problems Problem Status Onset Nausea, vomiting, and diarrhea Acute Pancreatitis Acute Dehydration Acute Hypoxemia Acute Head injury Acute Cervical strain Acute Pulmonary embolus Acute Elevated troponin Acute Palliative care encounter Acute Pneumonia Acute Toe infection Acute Atrial flutter Acute Vomiting Acute Displaced fracture of right femoral neck Acute
[2018-06-11] MEDS: QUEtiapine FUMARATE 25 MG TAB PO SCH (21:35)
[2018-06-12] MEDS: NS 1,000 ML IV SCH (03:19)
[2018-06-12] MEDS: HEPARIN 5,000 UNIT/0.5 ML INJ SC SCH ×3 (06:07→23:53)
[2018-06-12] MEDS: ACETAMINOPHEN 500 MG TAB PO SCH ×3 (06:07→23:52)
--- NOTE | 2018-06-12 08:42 | SOAPPROG ---
SOAP Progress Note Assessment/Plan: Assessment: s/p right jose Plan:dvt precautions ok to anticoagulate follow hct post op anemia d/c to snf when med appropriate continue to mobilize with pt/ot f/u at two weeks seek attn for increasing pain, leg pain or other focal complaint 06/09/18 07:12 06/10/18 06:26 06/11/18 06:50 06/12/18 08:41 Subjective: mild pain only no cp or sob Objective: Vital Signs Temp Pulse Resp BP Pulse Ox 37.2 C 85 14 121/53 H 94 06/12/18 00:00 06/12/18 00:00 06/12/18 00:00 06/12/18 00:00 06/12/18 00:00 Laboratory Results 06/11/18 04:46 06/11/18 04:46 06/11/18 06/12/18 06/13/18 05:59 05:59 05:59 Intake Total 3669 1980 Output Total 300 1500 Balance 3369 480 PT 14.8 SEC (12.0-15.0) 06/08/18 00:55 INR 1.14 (0.83-1.16) 06/08/18 00:55 dressing intact intact pf,df,ehl toes warm and pink neg homans zeynep ICD10 Worksheet Patient Problems: Problems Problem Status Onset Displaced fracture of right femoral neck Acute Atrial flutter Acute Cervical strain Acute Dehydration Acute Elevated troponin Acute Head injury Acute Hypoxemia Acute Nausea, vomiting, and diarrhea Acute Palliative care encounter Acute Pancreatitis Acute Pneumonia Acute Pulmonary embolus Acute Toe infection Acute Vomiting Acute
[2018-06-12] MEDS: amLODIPine BESYLATE 5 MG TAB PO SCH (08:57)
[2018-06-12] MEDS: traMADol 50 MG TAB PO PRN (11:47)
--- NOTE | 2018-06-12 12:22 | HOSPPROG ---
Hospitalist Progress Note Assessment/Plan: Adams is an 83 y/o male with past medical history significant for atrial fib and flutter, HTN, dm 2 diet controlled, PVD, AAA greater than 6 cm, remote history PE DVT, cataracts with blindness, spinal stenosis with right footdrop chronic back pain, history of osteomyelitis, psoriasis, BPH history of a urinary retention following mechanical fall now with right hip pain. * acute displaced fracture of right femoral neck -s/p R TKA *pain due to this -doesn't want narcotics -scheduled Tylenol and prn tramadol *hyperkalemia -stop ACEI -resolved *acute renal insufficiency -normal saline -better -no ACEI -check labs in am *gait instability w associated fall -PT and OT *AAA - goal of systolic bp <120 * thrombocytopenia -continued monitoring *Constipation -therapy *anemia, blood loss -stable *Paroxysmal atrial fibrillation/flutter -flutter today -DC tele *Benign essential hypertension -resumed Norvasc and Lisinopril -stable *Dm 2 diet controlled -ADA diet -likely will need insulin *History PVD *Spinal stenosis chronic back pain -chronic right footdrop *BPH with history urinary tension -will monitor *History of PE DVT-patient reports remote history of PE DVT. -initiate LMWH *Cataract and blindness. -likely impacted him causing a fall *dvt prophylaxis: he is very high risk, heparin TID *Plan: check H/H and renal function in am hip xray today, pt having significant pain hope for DC to rehab in am reviewed with the RN Subjective: Awake in bed. Having lots of hip pain. No specific needs. Objective: Vital Signs Temp Pulse Resp BP Pulse Ox 37.2 C 70 16 118/40 L 88 L 06/12/18 08:00 06/12/18 08:00 06/12/18 08:00 06/12/18 08:57 06/12/18 08:00 Laboratory Results 06/11/18 04:46 06/11/18 04:46 06/11/18 06/12/18 06/13/18 05:59 05:59 05:59 Intake Total 3669 1980 Output Total 300 1500 Balance 3369 480 PT 14.8 SEC (12.0-15.0) 06/08/18 00:55 INR 1.14 (0.83-1.16) 06/08/18 00:55 - Physical Exam Constitutional: appears nourished, chronically ill appearing, uncomfortable Eyes: anicteric sclera, EOMI, No pale conjunctiva Ears, Nose, Mouth, Throat: moist mucous membranes, hearing normal, ears appear normal Cardiovascular: irregularly irregular, No JVD, No edema Respiratory: no respiratory distress, no rales or rhonchi, reduced air movement Gastrointestinal: normoactive bowel sounds, No tenderness, No ascites Skin: warm, no fluctuance, No normal color Musculoskeletal: no joint effusions, joint tenderness, pain with ROM, generalized weakness, No normal joint ROM Psychiatric: interacting appropriately, poor insight, poor judgement, poor memory ICD10 Worksheet Patient Problems: Problems Problem Status Onset Nausea, vomiting, and diarrhea Acute Pancreatitis Acute Dehydration Acute Hypoxemia Acute Head injury Acute Cervical strain Acute Pulmonary embolus Acute Elevated troponin Acute Palliative care encounter Acute Pneumonia Acute Toe infection Acute Atrial flutter Acute Vomiting Acute Displaced fracture of right femoral neck Acute
--- NOTE | 2018-06-12 15:59 | ASMTCMCOM ---
CM Note CM Note Notes: [facility] still [facility]. Spoke with pt and JACOB Gunn, [facility]. Pt may d/c tomorrow. CM to follow. Date Signed: 06/12/2018 03:58 PM Electronically Signed By:YANNICK Gandhi
[2018-06-12] MEDS: QUEtiapine FUMARATE 25 MG TAB PO SCH (23:52)
[2018-06-13] MEDS: ACETAMINOPHEN 500 MG TAB PO SCH ×3 (05:39→21:35)
[2018-06-13] MEDS: HEPARIN 5,000 UNIT/0.5 ML INJ SC SCH ×3 (05:39→21:35)
[2018-06-13] MEDS: amLODIPine BESYLATE 5 MG TAB PO SCH (08:37)
--- NOTE | 2018-06-13 13:54 | HOSPPROG ---
Hospitalist Progress Note Assessment/Plan: Adams is an 83 y/o male with past medical history significant for atrial fib and flutter, HTN presents following mechanical fall now with right hip fracture. * acute displaced fracture of right femoral neck -s/p R HERNAN -continue pt/ot, tramadol, tylenol * GUNNAR: -with creatinine as high as 2.2 then trending down -occurring in perioperative period, in review also with drop in h/h and intermittent hypotension so suspect this was HD mediated as well as in setting of lisinopril -will repeat creatinine today and continue to trend, will obtain urine studies if still elevated *hyperkalemia -resolved, 2/2 above * acute encephalopathy: -patient with confusion today, trying to make a phone call with his watch, unclear if all delirium or if some element of dementia present at baseline -will continue to monitor *gait instability w associated fall -PT and OT * thrombocytopenia -slightly low, no e/o bleeding, monitorin *anemia, blood loss -stable *Paroxysmal atrial fibrillation/flutter -chronic, rate controlled *Benign essential hypertension -holding lisinopril given gunnar, continue norvasc, well controlled * chronic medical issues: DM 2 (diet controlled), hx of PVD, spinal stenosis with chronic right footdrop, BPH, hx of PE/DVT, cataracts/blindness (limiting mobility), AAA *dvt prophylaxis: he is very high risk, heparin TID * IP status, will need to dc to SNF Patient new to my care. Old records reviewed and summarized as above. Subjective: no significant overnight events, patient states he is doing well but doesn't understand why his phone isn't ringing Objective: Vital Signs Temp Pulse Resp BP Pulse Ox 37.1 C 94 14 132/88 H 88 L 06/13/18 08:00 06/13/18 08:00 06/13/18 08:00 06/13/18 08:37 06/13/18 08:00 Laboratory Results 06/11/18 04:46 06/11/18 04:46 06/12/18 06/13/18 06/14/18 05:59 05:59 05:59 Intake Total 1980 850 Output Total 1500 500 Balance 480 350 PT 14.8 SEC (12.0-15.0) 06/08/18 00:55 INR 1.14 (0.83-1.16) 06/08/18 00:55 awake alert anicteric op clear rrr no mrg cta b soft nt nd no cce warm dry well perfused oriented x 2, slightly confused trying to use his watch as a phone - Time Spent With Patient Time Spent with Patient: greater than 35 minutes Time Spent with Patient: Greater than 35 minutes spent on this patients care, greater than 50% of time spent counseling, educating, and coordinating care regarding the above mentioned plan. ICD10 Worksheet Patient Problems: Problems Problem Status Onset Displaced fracture of right femoral neck Acute Atrial flutter Acute Cervical strain Acute Dehydration Acute Elevated troponin Acute Head injury Acute Hypoxemia Acute Nausea, vomiting, and diarrhea Acute Palliative care encounter Acute Pancreatitis Acute Pneumonia Acute Pulmonary embolus Acute Toe infection Acute Vomiting Acute
--- NOTE | 2018-06-13 15:46 | ASMTCMCOM ---
CM Note CM Note Notes: Pt to discharge to [facility]. Spoke with Neisha from [facility] today . She was having difficulty with insurance auth due to an open claim with [employer] [employer]. CM connected Neisha with pt's JACOB Fragoso ([phone]) in order to resolve this issue. CM will follow. D/C Plan: [facility] pending insurance auth Date Signed: 06/13/2018 03:45 PM Electronically Signed By:Ashley Cali
[2018-06-13] MEDS: QUEtiapine FUMARATE 25 MG TAB PO SCH (21:35)
[2018-06-14] MEDS: HEPARIN 5,000 UNIT/0.5 ML INJ SC SCH ×3 (05:50→21:22)
[2018-06-14] MEDS: ACETAMINOPHEN 500 MG TAB PO SCH ×3 (05:50→21:25)
[2018-06-14] MEDS: amLODIPine BESYLATE 5 MG TAB PO SCH (09:20)
--- NOTE | 2018-06-14 15:20 | HOSPPROG ---
Hospitalist Progress Note Assessment/Plan: Adams is an 83 y/o male with past medical history significant for atrial fib and flutter, HTN presents following mechanical fall now with right hip fracture. * acute displaced fracture of right femoral neck -s/p R HERNAN -continue pt/ot, tramadol, tylenol * GUNNAR: -with creatinine as high as 2.2 then trending down -occurring in perioperative period, in review also with drop in h/h and intermittent hypotension so suspect this was HD mediated as well as in setting of lisinopril -creatinine stable at this time but still above his usual baseline *hyperkalemia -resolved, 2/2 above * acute encephalopathy: -patient with confusion today, trying to make a phone call with his watch, unclear if all delirium or if some element of dementia present at baseline -will continue to monitor *gait instability w associated fall -PT and OT * thrombocytopenia -slightly low, no e/o bleeding, monitorin *anemia, blood loss -stable *Paroxysmal atrial fibrillation/flutter -chronic, rate controlled *Benign essential hypertension -holding lisinopril given gunnar, continue norvasc, well controlled * chronic medical issues: DM 2 (diet controlled), hx of PVD, spinal stenosis with chronic right footdrop, BPH, hx of PE/DVT, cataracts/blindness (limiting mobility), AAA *dvt prophylaxis: he is very high risk, heparin TID * IP status, will need to dc to SNF Subjective: no significant overnight events, patient remains confused but otherwise stable Objective: Vital Signs Temp Pulse Resp BP Pulse Ox 37.3 C 72 14 145/65 H 92 06/14/18 07:38 06/14/18 07:38 06/14/18 07:38 06/14/18 09:20 06/14/18 07:38 Laboratory Results 06/13/18 14:40 06/13/18 14:40 06/13/18 06/14/18 06/15/18 05:59 05:59 05:59 Intake Total 850 2240 600 Output Total 500 50 Balance 350 2240 550 PT 14.8 SEC (12.0-15.0) 06/08/18 00:55 INR 1.14 (0.83-1.16) 06/08/18 00:55 awake alert anicteric op clear rrr no mrg cta b soft nt nd no cce warm dry well perfused oriented x 2, slightly confused trying to use his watch as a phone ICD10 Worksheet Patient Problems: Problems Problem Status Onset Displaced fracture of right femoral neck Acute Atrial flutter Acute Cervical strain Acute Dehydration Acute Elevated troponin Acute Head injury Acute Hypoxemia Acute Nausea, vomiting, and diarrhea Acute Palliative care encounter Acute Pancreatitis Acute Pneumonia Acute Pulmonary embolus Acute Toe infection Acute Vomiting Acute
[2018-06-14] MEDS: QUEtiapine FUMARATE 25 MG TAB PO SCH (21:25)
[2018-06-15] MEDS: ACETAMINOPHEN 500 MG TAB PO SCH ×2 (06:22→15:55)
[2018-06-15] MEDS: HEPARIN 5,000 UNIT/0.5 ML INJ SC SCH ×2 (06:22→15:55)
--- NOTE | 2018-06-15 06:23 | SOAPPROG ---
SOAP Progress Note Assessment/Plan: Assessment: s/p right jose Plan:dvt precautions ok to anticoagulate follow hct post op anemia d/c to snf when med appropriate continue to mobilize with pt/ot f/u at two weeks seek attn for increasing pain, leg pain or other focal complaint no acute ortho issues continue rehab 06/09/18 07:12 06/10/18 06:26 06/11/18 06:50 06/12/18 08:41 06/15/18 06:22 Subjective: sleeping Objective: Vital Signs Temp Pulse Resp BP Pulse Ox 36.8 C 81 17 121/43 H 95 06/14/18 22:24 06/14/18 22:24 06/14/18 22:24 06/14/18 22:24 06/14/18 22:24 Laboratory Results 06/13/18 14:40 06/13/18 14:40 06/14/18 06/15/18 06/16/18 05:59 05:59 05:59 Intake Total 2240 1800 Output Total 500 Balance 2240 1300 PT 14.8 SEC (12.0-15.0) 06/08/18 00:55 INR 1.14 (0.83-1.16) 06/08/18 00:55 dressing intact no erythema or drainage ICD10 Worksheet Patient Problems: Problems Problem Status Onset Displaced fracture of right femoral neck Acute Atrial flutter Acute Cervical strain Acute Dehydration Acute Elevated troponin Acute Head injury Acute Hypoxemia Acute Nausea, vomiting, and diarrhea Acute Palliative care encounter Acute Pancreatitis Acute Pneumonia Acute Pulmonary embolus Acute Toe infection Acute Vomiting Acute
[2018-06-15] MEDS: traMADol 50 MG TAB PO PRN ×2 (08:18→17:47)
[2018-06-15] MEDS: amLODIPine BESYLATE 5 MG TAB PO SCH (11:09)
--- NOTE | 2018-06-15 13:19 | PDIAF ---
- Diagnosis Diagnosis: right femoral neck fx Code Status: Full Code - Medication Management Discharge Medications: Medications to Continue on Transfer amLODIPine BESYLATE [Norvasc 5 mg (*)] 5 mg PO DAILY #30 tab 08/04/16 [Last Taken 06/07/18] Acetaminophen [Tylenol ES 500 mg (*)] 1,000 mg PO Q8HRS tab 06/15/18 [Last Taken Unknown] Acetaminophen [Tylenol Rectal] 650 mg VA Q4HRS PRN supp 06/15/18 [Last Taken Unknown] Heparin [Heparin SC 5000 unit/0.5 ml (*)] 5,000 unit SC Q8HRS inj 06/15/18 [ Last Taken Unknown] traMADol [Ultram 50 mg (*)] 50 mg PO Q6HRS PRN tab 06/15/18 [Last Taken Unknown ] Discharge Medications: Refer to the Discharge Home Medication list for PRN reason. - Orders Services needed: Registered Nurse, Physical Therapy, Occupational Therapy Isolation Type: None Diet Texture: Regular Texture Diet, Thin Liquids, Meds Whole w/Liquids Additional Instructions: TOTAL JOINT ARTHROPLASTY DISCHARGE INSTRUCTIONS 1. Your surgeon follows the [facility] protocol for reducing your risk of DVT (blood clots) following surgery. Medication will be ordered to prevent blood clots. A sudden increase in calf pain and/or swelling could indicate a blood clot in your leg. If this occurs, please call your surgeon or his/her assistant program director. An ultrasound of the leg may be necessary to diagnose a blood clot. If you have conditions that make you a higher risk for blood clots, your surgeon may use more aggressive ways to prevent them. Notify your surgeon if you think you are a high risk for blood clots. 2. Wear your white surgical stockings (SHAKEEL hose) for 2 weeks. This decreases your swelling and may help prevent blood clots. It is ok to remove SHAKEEL hose at night time to give your legs a break. 3. Swelling and bruising in the surgical leg is common. If you feel that it is excessive, please notify your surgeon. 4. Elevate your surgical leg with the ankle above the hip several times every day. Please keep the leg straight when you elevate by putting pillows under your foot. Do not put pillows under your knee. This will make being able to fully straighten more difficult. This is uncomfortable, but try to do it as much as possible. 5. For total knee replacements use compressive wrap on your knee for 3-5 days after surgery, then you can discontinue it. 6. Use a walker or crutches for 1-2 weeks. Progress your weight-bearing as tolerated. You may start to use a cane when you feel stable and safe. 7. You will receive physical therapy instructions in the hospital. Continue those exercises at home. There are additional exercises in the total joint booklet you were given before surgery. Outpatient physical therapy will begin 7- 10 days after surgery. Please schedule this in advance. 8. Use ice on your knee at least 3-5 times every day for 30 minutes. This helps reduce pain and swelling. Also use it at night before falling asleep. 9. Leave your surgical dressing in place for 2 weeks. Your dressing is water resistant, but not waterproof. Cover it with Saran Wrap or Wpydp-w-Ymsc before showering. You may shower as soon as you feel safe entering a shower. If you notice bleeding from your incision 2 or 3 days after surgery, please notify your surgeon. 10. Due to narcotics, decreased activity and altered diet, most patients experience constipation after surgery. Use dizm-czq-cxechxl stool softeners while you are on narcotics. 11. You may drive a car when you are comfortable bearing weight, have good muscular control of your leg and are off narcotics. This usually occurs 2-4 weeks after surgery, depending on which leg was operated on. 12. If there are questions not addressed here, please refer the [facility] book given for more information. If you still have questions, please contact your surgeon s office. 13. If you have a life-threatening emergency, please call 911 and go to the emergency room immediately. For non-life threatening emergencies, please call your physicians office for advice before going to the emergency room. - Follow Up Care Current Providers and Referrals: Patient,NotPresent [Unknown] - As per Instructions Mk Blancas MD [Medical Doctor] - follow up in 2 weeks
--- NOTE | 2018-06-15 13:20 | PDIAF ---
- Diagnosis Diagnosis: right femoral neck fx Code Status: Full Code - Medication Management Discharge Medications: Medications to Continue on Transfer amLODIPine BESYLATE [Norvasc 5 mg (*)] 5 mg PO DAILY #30 tab 08/04/16 [Last Taken 06/07/18] Acetaminophen [Tylenol ES 500 mg (*)] 1,000 mg PO Q8HRS tab 06/15/18 [Last Taken Unknown] Acetaminophen [Tylenol Rectal] 650 mg NC Q4HRS PRN supp 06/15/18 [Last Taken Unknown] Heparin [Heparin SC 5000 unit/0.5 ml (*)] 5,000 unit SC Q8HRS inj 06/15/18 [ Last Taken Unknown] traMADol [Ultram 50 mg (*)] 50 mg PO Q6HRS PRN tab 06/15/18 [Last Taken Unknown ] Discharge Medications: Refer to the Discharge Home Medication list for PRN reason. - Orders Services needed: Registered Nurse, Physical Therapy, Occupational Therapy Isolation Type: None Diet Texture: Regular Texture Diet, Thin Liquids, Meds Whole w/Liquids Additional Instructions: TOTAL JOINT ARTHROPLASTY DISCHARGE INSTRUCTIONS 1. Your surgeon follows the [facility] protocol for reducing your risk of DVT (blood clots) following surgery. Medication will be ordered to prevent blood clots. A sudden increase in calf pain and/or swelling could indicate a blood clot in your leg. If this occurs, please call your surgeon or his/her public services assistant. An ultrasound of the leg may be necessary to diagnose a blood clot. If you have conditions that make you a higher risk for blood clots, your surgeon may use more aggressive ways to prevent them. Notify your surgeon if you think you are a high risk for blood clots. 2. Wear your white surgical stockings (SHAKEEL hose) for 2 weeks. This decreases your swelling and may help prevent blood clots. It is ok to remove SHAKEEL hose at night time to give your legs a break. 3. Swelling and bruising in the surgical leg is common. If you feel that it is excessive, please notify your surgeon. 4. Elevate your surgical leg with the ankle above the hip several times every day. Please keep the leg straight when you elevate by putting pillows under your foot. Do not put pillows under your knee. This will make being able to fully straighten more difficult. This is uncomfortable, but try to do it as much as possible. 5. For total knee replacements use compressive wrap on your knee for 3-5 days after surgery, then you can discontinue it. 6. Use a walker or crutches for 1-2 weeks. Progress your weight-bearing as tolerated. You may start to use a cane when you feel stable and safe. 7. You will receive physical therapy instructions in the hospital. Continue those exercises at home. There are additional exercises in the total joint booklet you were given before surgery. Outpatient physical therapy will begin 7- 10 days after surgery. Please schedule this in advance. 8. Use ice on your knee at least 3-5 times every day for 30 minutes. This helps reduce pain and swelling. Also use it at night before falling asleep. 9. Leave your surgical dressing in place for 2 weeks. Your dressing is water resistant, but not waterproof. Cover it with Saran Wrap or Dbqvu-n-Auol before showering. You may shower as soon as you feel safe entering a shower. If you notice bleeding from your incision 2 or 3 days after surgery, please notify your surgeon. 10. Due to narcotics, decreased activity and altered diet, most patients experience constipation after surgery. Use hmdo-ubo-qmmswhr stool softeners while you are on narcotics. 11. You may drive a car when you are comfortable bearing weight, have good muscular control of your leg and are off narcotics. This usually occurs 2-4 weeks after surgery, depending on which leg was operated on. 12. If there are questions not addressed here, please refer the [facility] book given for more information. If you still have questions, please contact your surgeon s office. 13. If you have a life-threatening emergency, please call 911 and go to the emergency room immediately. For non-life threatening emergencies, please call your physicians office for advice before going to the emergency room. - Labs/Radiology HCT/HGB Date: 06/16/18 - Follow Up Care Current Providers and Referrals: Patient,NotPresent [Unknown] - As per Instructions Mk Blancas MD [Medical Doctor] - follow up in 2 weeks
--- NOTE | 2018-06-15 14:34 | ASMTDCNOTE ---
Case Management Discharge Discharge Order Complete? Answers: Yes Patient to Obtain Answers: Other Notes: [facility] Medications Transportation Arranged Answers: [facility] will Pick (Date 06/15/2018 12:00 AM & Time) Case Management Transport Answers: Yes Notes: [facility] Form Complete Faxed Final Orders Answers: Yes Notes: [facility] Agency/Facility Transfer Answers: Yes Notes: [facility] Report Printed & Faxed to Receiving Agency Family Notified Answers: Yes Notes: friend Velia Discharge Comments Notes: Patient is ready for discharge to [facility] today. Transport arranged with [facility] for 6:00 (18:00) which was their first available. Discharge summaries were Allscripted to [facility]. Patient does not name any family members. Notified his friend Velia. Neisha with [facility] states they did get financial information they needed. ([phone]. No further needs. Date Signed: 06/15/2018 02:33 PM Electronically Signed By:Rohini Gibson LCSW
--- NOTE | 2018-06-15 14:36 | ASMTLACE ---
LACE Length of stay for Answers: 7-13 days current admission Acuity / Level of Answers: Yes Care: Did the patient have an inpatient admission? Comorbidities - select Answers: Diabetes (uncontrolled or all that apply controlled) History of falls Peripheral vascular disease Other Notes: HTN; AFlutter # of Emergency department Answers: 1-2 visits in the last 6 months Score: 15 Date Signed: 06/15/2018 02:36 PM Electronically Signed By:Rohini Gibson LCSW
[2018-06-15 15:01] VITALS: BP 126/65
--- NOTE | 2018-06-16 08:39 | GOP ---
DATE OF OPERATION: 06/08/2018 SURGEON: Mk Blancas MD FOOT ROENTGENOLOGIST: Kamaljit Loja, surgical orderly who was a medical necessity for the entirety of the case pr eop. PREOPERATIVE DIAGNOSIS: Right femoral neck fracture, displaced. POSTOPERATIVE DIAGNOSIS: Right femoral neck fracture, displaced. PROCEDURE PERFORMED: Right total hip arthroplasty. FINDINGS: SPECIMENS: To Pathology, the femoral head. INDICATIONS: The patient is an 83-year-old gentleman who fell and sustained a displaced right femora l neck fracture. Given his age and fracture location and characteristics, I recommended total hip re placement. I have outlined the surgical procedure, risks, benefits, and alternatives. He has underg one extensive medical clearance and been deemed an appropriate operative candidate. DESCRIPTION OF PROCEDURE: The patient was taken from the preop area to the operative suite. In the preop area, the right hip was clearly demarcated as the operative site with indelible marker. He was given 2 g of Ancef intravenously in route to the operative suite and a dose of tranexamic acid. In the OR, general endotracheal anesthesia was administered. He was positioned in the supine position o n operative table. Appropriate time-out procedure was carried out. The pelvis and both lower extrem ities were sterilely prepped and draped in usual fashion. An anterior approach was made to the right hip. This was carried sharply through the skin and subcut aneous tissue. The tensor fascia live was opened and the underlying muscle retracted laterally. The underlying vascular structures were identified, ligated, cauterized, and transected. The rectus was elevated off the anterior capsule and retractors were placed in an extracapsular position. A T caps ulotomy was made. Retractors were placed into an intracapsular position. A bony wedge was withdrawn from the femoral neck. There was comminution given the underlying fracture and the head was withdra wn as well. The acetabular labrum and soft tissues were sharply excised. Reaming was carried out to a size 58 mm reamer with an opening angle of approximately 40 degrees and anteversion of 20 degrees. A 58 mm Tritanium II acetabular cup was then impacted and confirmed to be fully seated. A single 25 mm 6.5 mm screw was placed in the superior aspect. 0 degree X3 liner was placed confirmed to be fully seated. Attention was then turned to the femur which was delivered through the use of soft tissue retraction and extension of the table. The proximal canal was opened. Serial broaching was carried out to a si ze 9 stem. Trial reduction was carried out, and ultimately, a 36 mm -2.5 mm neck length was placed. The final stem was then placed and confirmed. A 36 mm Biolox head with -2.5 mm neck length was plac ed. The hip was copiously irrigated, reduced. This allowed protestant of leg lengths. There was no instability with full extension, external rotation to 90 degrees. The hip was copiously irrigated with pulsatile lavage solution. A 10-Yemeni drain was then placed de ep to the tensor. The tissues were injected with a joint cocktail of ropivacaine, morphine, Toradol, and epinephrine. The tensor fascia live closed using 0 Vicryl, subcutaneous tissue using 2-0 Monocr yl, and the skin with joanne. A sterile dressing was applied. The patient was awakened, extubated, and taken to recovery room in good, stable condition. TOTAL TOURNIQUET TIME: None. COMPLICATIONS: None. IMPLANTS: Viktoria Trident II acetabular shell 58 mm, 6.5 mm screw x1. Trident X3 0 degree polyethyl yessica insert, 36 mm inner diameter. Biolox delta ceramic head, 36 mm, -2.5 mm neck length, and Accolad e II 127 degree neck angle hip stem size 9. DISPOSITION: To the recovery room, then the floor. /[id number]/MODL
--- NOTE | 2018-06-16 09:46 | ASDISCHSUM ---
Discharge Information Plan Status:SNF Medically Cleared to Leave:06/15/2018 Discharge Date:06/15/2018 05:52 PM CM D/C Disposition:[facility] Facility ADT D/C Disposition:[facility] Facility Projected Discharge Date:06/15/2018 11:00 AM Transportation at D/C:[facility] Discharge Delay Reason: Follow-Up Date:06/15/2018 11:00 AM Discharge Slot:2 - 12:01 pm - 18:00 pm Final Diagnosis:Right femoral neck fracture Placement Information Referral Type:*[facility]/SNF Referral ID:[id number] Provider Name:Melissa [facility] [place] Address 1:[address] Address 2: City:[place] Selection Factors: State:[place] Patient Contact Information Contact Name:BIANCA Relationship:Friend Address: Work Phone: [facility]:[place] Alternate Phone: State/Zip Code:[place] Email: Financial Information Financial Class:Medicare Primary Plan Desc:MEDICARE INPATIENT Primary Plan Number:[id number] Secondary Plan Desc: Secondary Plan Number: Assessment Information LACE LACE Length of stay for Answers: 7-13 days current admission Acuity / Level of Answers: Yes Care: Did the patient have an inpatient admission? Comorbidities - select Answers: Diabetes (uncontrolled or all that apply controlled) History of falls Peripheral vascular disease Other Notes: HTN; AFlutter # of Emergency department Answers: 1-2 visits in the last 6 months Score: 15 Date Signed: 06/15/2018 02:36 PM Electronically Signed By:Rohini Gibson LCSW [facility] CM Progress Note CM Note CM Note Notes: Pt to OR today for hip fx after fall at home. Pt has been to [facility] a couple times in recent past. Pt MDPOA is Velia Fragoso, she is present and wants to complete living will ( contacted) and financial POA today. Velia reports she has been working with an assistant city attorney and she is informed she need to secure to [facility] from the assistant city attorney not [facility]. Pt verbalizes he hopes he does not have d/c to SNF and go home. PT/OT to eval when appropriate. CM to follow for d/c planning. Date Signed: 06/08/2018 02:02 PM Electronically Signed By:YANNICK Gandhi [facility] CM Progress Note CM Note CM Note Notes: PT rec SNF. Attempted to talk to pt four times about d/c planning, he was sleeping all afternoon and unarousable. CM will try in the morning to discuss d/c with pt, maybe JACOB Gunn will be at hospital. CM to follow. Date Signed: 06/09/2018 04:21 PM Electronically Signed By:YANNICK Gandhi [facility] CLAUDIA Progress Note CM Note CM Note Notes: Pt owes [facility] $8k. Pt still confused today, JACOB Gunn reports pt has no money. Pt may have 60 days out of SNF, may be able to get into another SNF and start over on Medicare days, referrals sent to [facility] and [facility] in [employer]. Date Signed: 06/10/2018 03:42 PM Electronically Signed By:YANNICK Gandhi [facility] CM Progress Note CM Note CM Note Notes: Med data to screen pt for Medicaid. Date Signed: 06/10/2018 04:04 PM Electronically Signed By:YANNICK Gandhi [facility] CM Progress Note CM Note CM Note Notes: Pt accepted at [facility], [place] still assessing. Ria with [facility] completed on-site assessment today. Pt likely d/c tomorrow. CM to follow. Date Signed: 06/11/2018 03:22 PM Electronically Signed By:YANNICK Gandhi [facility] CM Progress Note CM Note CM Note Notes: [facility] still assessing. Spoke with pt and JACOB Gunn, choose [facility] over [facility] if accepted. Pt may d/c tomorrow. CM to follow. Date Signed: 06/12/2018 03:58 PM Electronically Signed By:YANNICK Gandhi [facility] Progress Note CM Note CM Note Notes: Pt to discharge to [facility]. Spoke with Neisha from [facility] today . She was having difficulty with insurance auth due to an open claim with [employer]. CM connected Neisha with pt's JACOB Fragoso ([phone]) in order to resolve this issue. CM will follow. D/C Plan: [facility] pending insurance auth Date Signed: 06/13/2018 03:45 PM Electronically Signed By:Ashley Cali Case Management Discharge Plan Note Case Management Discharge Discharge Order Complete? Answers: Yes Patient to Obtain Answers: Other Notes: [facility] Medications Transportation Arranged Answers: [employer] [facility] Transport will Pick (Date 06/15/2018 12:00 AM & Time) Case Management Transport Answers: Yes Notes: [facility] Form Complete Faxed Final Orders Answers: Yes Notes: [facility] Agency/Facility Transfer Answers: Yes Notes: [facility] Report Printed & Faxed to Receiving Agency Family Notified Answers: Yes Notes: friend Velia Discharge Comments Notes: Patient is ready for discharge to [facility] today. Transport arranged with [employer] for 6:00 (18:00) which was their first available. Discharge summaries were Allscripted to [facility]. Patient does not name any family members. Notified his friend Penny. Driver with [facility] states they did get financial information they needed. ([phone]. No further needs. Date Signed: 06/15/2018 02:33 PM Electronically Signed By:Rohini Gibson LCSW Intervention Information Intervention Type:*Incorrect Registration Date of Service:06/08/2018 10:00 AM Patient Type:Observation Staff Member:Dorie Colvin Hours: Discipline: Severity: Comment: Intervention Type:*IM-Signed Date of Service:06/15/2018 02:31 PM Patient Type:Inpatient Staff Member:Antionette Lomeli Hours: Discipline: Severity: Comment:
--- NOTE | 2018-06-16 11:45 | GDS ---
DISCHARGE DIAGNOSES: 1. Acute displaced fracture of the right femoral neck. 2. Acute kidney injury. 3. Hyperkalemia. 4. Encephalopathy. 5. Gait instability. 6. Thrombocytopenia. 7. Blood-loss anemia. 8. Paroxysmal atrial fibrillation with flutter. 9. Hypertension. CONSULTATIONS: Dr. Blancas. PHYSICAL EXAM: GENERAL: The patient is alert. VITAL SIGNS: Afebrile at 37.2, pulse 78, respirator y rate 16, blood pressure is 126/75. He is saturating 97% on room air. I have seen and evaluated th e patient on the day of discharge. HOSPITAL COURSE: The patient is an 83-year-old male who presented to the hospital after suffering pa in. He was evaluated and diagnosed with: 1. Acute displaced fracture of the right femoral neck. During this hospitalization, he received a c onsultation from Dr. Blancas. Surgical intervention was performed, and the patient is stable with reg abigail to this condition. 2. Acute kidney injury. This is a setting of dehydration. Creatinine has improved. His baseline c reatinine is approximately 1.5 to 1.7. 3. Hyperkalemia. This is secondary to the patient's medications. This has been adjusted and is sta ble. 4. Encephalopathy. The patient has been mildly confused in the postoperative setting. It is unclea r what his baseline is. 5. Gait instability with falls. He will require physical therapy and occupational therapy. 6. Thrombocytopenia. No complications identified. 7. Blood-loss anemia. This is stable with no need for transfusion at this time. 8. Paroxysmal atrial fibrillation with flutter. This is chronic. He is rate controlled. 9. Hypertension. His lisinopril has been held, secondary to his acute kidney injury, as well as his hyperkalemia. He will continue on Norvasc in the outpatient setting and should not be re-initiated on HEAVEN inhibitor. DISPOSITION: The patient will be discharged to [facility] facility for further rehabilitation a nd management. DISCHARGE MEDICATIONS: Please refer to EMR form. Again, the patient's lisinopril has been discontin ued and he has been initiated on Norvasc for blood pressure control. FOLLOWUP: Will be with Dr. Blancas, his orthopedic surgeon. TIME SPENT WITH PATIENT: I spent greater than 35 minutes in the care, coordination, and management o f patient's disposition. /[id number]/MODL
== END 2018-06-15 17:52 | DRG 470 ==
LOC: EDUNIT# → OBSVTOIN 06-08 01:49 → F3N 06-08 02:30
PROVIDERS: ADMIT Family Medicine; ATTEND Family Medicine
PROC: 0SR904Z Replacement of Right Hip Joint with Ceramic on Polyethylene Synthetic Substitute, Open Approach (ICD-10-PCS; principal; 2018-06-08 14:15)
DX: S72.001A Fracture of unspecified part of neck of right femur, initial encounter for closed fracture (principal); N17.9 Acute kidney failure, unspecified; G93.40 Encephalopathy, unspecified; D62 Acute posthemorrhagic anemia; W07.XXXA Fall from chair, initial encounter; E87.5 Hyperkalemia; R26.89 Other abnormalities of gait and mobility; D69.6 Thrombocytopenia, unspecified; I48.0 Paroxysmal atrial fibrillation; I48.91 Unspecified atrial fibrillation; I10 Essential (primary) hypertension; E86.0 Dehydration; I71.4 Abdominal aortic aneurysm, without rupture; E11.9 Type 2 diabetes mellitus without complications; N40.1 Benign prostatic hyperplasia with lower urinary tract symptoms; R33.9 Retention of urine, unspecified; H26.9 Unspecified cataract; H54.7 Unspecified visual loss
CPT/HCPCS: 92610-GN; 96374; 97110-GP; 97116-GP; 97162-GP; 97165-GO; 97530-GO; 97530-GP; 97535-GO; C1713; G8978-GP-CL; G8979-GP-CI; G8987-GO-CN; G8988-GO-CK; G8996-GN-CI; G8997-GN-CI; G8998-GN-CI; J0171; J1100; J1170; J1644; J1885; J2250; J2270; J2405; J2704; J2710; J2795; J3010; J3360; J3370

== ENCOUNTER 2018-06-22 12:46 | Inpatient (IN) | payer OTHER ==
--- NOTE | 2018-06-22 12:58 | EDPHY ---
HPI/HX/ROS/PE/MDM Narrative: CHIEF COMPLAINT: Elevated creatinine level HPI: The patient is a 83-year-old male who was recently discharged from this hospital after right femoral neck fracture repair. He was apparently sent back to the emergency department after his living facility performed an outpatient lab which showed a creatinine level of approximately 3.7. Records indicate this was drawn 2 days ago. The patient himself is not a very good historian. He complains of pain to both hips but seems somewhat confused. Per the nurse, the family feels that he is more confused than usual. REVIEW OF SYSTEMS: Aside from elements discussed in the HPI, a comprehensive 10-point review of systems was reviewed and is negative. This is somewhat unreliable and difficult to obtain. PMH: Includes femoral neck fracture with recent ORIF. Chart review indicates: History of recent acute kidney injury, hyperkalemia, encephalopathy, thrombocytopenia, paroxysmal atrial fibrillation flutter, hypertension SOCIAL HISTORY: Lives at [facility]. No history of drug abuse. PHYSICAL EXAM: General:Patient is awake, in no acute distress. ENT:Eyes are normal to inspection. Dry mucous membranes. Neck: Normal inspection. Full range of motion. Respiratory:No respiratory distress. Breath sounds normal bilaterally. Cardiovascular: Regular rate and rhythm. Strong peripheral pulses. Normal cap refill. Abdomen:The abdomen is nontender to palpation. There are no peritoneal signs. There are normal bowel sounds. Back: Normal to inspection. No tenderness to palpation. Skin: Normal color. No rash. Warm and dry. Extremities: Surgical incision at the right hip appears clean dry and intact with no surrounding erythema or discharge. There is 2+ pedal edema of the right calf and foot including multiple blisters, some unroofed along the anterior heaton and foot. 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 Neuro: No focal deficits. Patient seems mildly confused. ED Course: EKG was ordered and interpreted by myself. Please see [facility] system for official reading. Given unilateral leg swelling, an ultrasound was ordered. Dr. Chen called me with results which indicate positive DVT. MDM: Given elevated creatinine, elevated potassium, and dehydrated state and DVT in the setting of ongoing heparin use, the patient requires admission to the hospital. I spoke with Dr. Lesli Cedeno at approximately 2:30 p.m.. - Data Points Imaging Results: Imaging Impressions Chest X-Ray 06/22/18 13:04 Impression: Stable left basilar consolidation. Extremity Venous Study 06/22/18 13:33 Impression: DVT extending from the popliteal vein through the peroneal and posterior tibial veins. Findings discussed with Hernán Sullivan MD 06/22/2018 at 14:22. Laboratory Results: Laboratory Results 06/22/18 12:54 06/22/18 12:54 06/22/18 06/22/18 06/22/18 12:54 12:54 12:54 WBC 7.64 10^3/uL 10^3/uL (3.80-9.50) RBC 2.94 10^6/uL L 10^6/uL (4.40-6.38) Hgb 8.3 g/dL L g/dL (13.7-17.5) Hct 27.2 % L % (40.0-51.0) MCV 92.5 fL fL (81.5-99.8) MCH 28.2 pg pg (27.9-34.1) MCHC 30.5 g/dL L g/dL (32.4-36.7) RDW 14.4 % % (11.5-15.2) Plt Count 265 10^3/uL 10^3/uL (150-400) MPV 10.8 fL fL (8.7-11.7) Neut % (Auto) 81.2 % H % (39.3-74.2) Lymph % (Auto) 11.0 % L % (15.0-45.0) [place] % (Auto) 6.4 % % (4.5-13.0) Eos % (Auto) 0.8 % % (0.6-7.6) Baso % (Auto) 0.1 % L % (0.3-1.7) Nucleat RBC Rel Count 0.0 % % (0.0-0.2) Absolute Neuts (auto) 6.20 10^3/uL 10^3/uL (1.70-6.50) Absolute Lymphs (auto) 0.84 10^3/uL L 10^3/uL (1.00-3.00) Absolute Monos (auto) 0.49 10^3/uL 10^3/uL (0.30-0.80) Absolute Eos (auto) 0.06 10^3/uL 10^3/uL (0.03-0.40) Absolute Basos (auto) 0.01 10^3/uL L 10^3/uL (0.02-0.10) Absolute Nucleated RBC 0.00 10^3/uL 10^3/uL (0-0.01) Immature Gran % 0.5 % % (0.0-1.1) Immature Gran # 0.04 10^3/uL 10^3/uL (0.00-0.10) PT 15.3 SEC H SEC (12.0-15.0) INR 1.19 H (0.83-1.16) APTT 30.9 SEC SEC (23.0-38.0) Sodium 142 mEq/L mEq/L (135-145) Potassium 5.2 mEq/L H mEq/L (3.3-5.0) Chloride 109 mEq/L mEq/L (97-110) Carbon Dioxide 21 mEq/l L mEq/l (22-31) Anion Gap 12 mEq/L mEq/L (6-14) BUN 50 mg/dL H mg/dL (7-23) Creatinine 2.6 mg/dL H mg/dL (0.7-1.3) Estimated GFR 24 Glucose 96 mg/dL mg/dL (70-100) Calcium 8.0 mg/dL L mg/dL (8.5-10.4) Total Bilirubin 0.9 mg/dL mg/dL (0.1-1.4) Conjugated Bilirubin 0.4 mg/dL mg/dL (0.0-0.5) Unconjugated Bilirubin 0.5 mg/dL mg/dL (0.0-1.1) AST 45 IU/L IU/L (17-59) ALT 44 IU/L IU/L (21-72) Alkaline Phosphatase 93 IU/L IU/L (38-126) Total Protein 6.9 g/dL g/dL (6.3-8.2) Albumin 3.4 g/dL L g/dL (3.5-5.0) Medications Given: Discontinued Medications Sodium Chloride (Ns) 500 mls @ 0 mls/hr IV EDNOW ONE; Wide Open PRN Reason: Protocol Stop: 06/22/18 13:05 Last Admin: 06/22/18 13:13 Dose: 500 mls General Time Seen by Provider: 06/22/18 12:57 Initial Vital Signs: Initial Vital Signs Temperature (C) 36.6 C 06/22/18 13:05 Heart Rate 90 06/22/18 13:05 Respiratory Rate 16 06/22/18 13:05 Blood Pressure 123/46 H 06/22/18 13:05 O2 Sat (%) 94 06/22/18 13:05 O2 Delivery Mode Room Air Allergies/Adverse Reactions: Tetracyclines Allergy (Intermediate, Verified 06/07/18 23:50) Vomiting azithromycin Allergy (Unknown, Verified 06/07/18 23:50) Itching nitrofurantoin [From Macrobid] Allergy (Unknown, Verified 06/07/18 23:50) nitrofurantoin macrocrystalline [From Macrobid] Allergy (Unknown, Verified 06/07 23:50) Penicillins Allergy (Unknown, Verified 06/07/18 23:50) Sulfa (Sulfonamide Antibiotics) Allergy (Unknown, Verified 06/07/18 23:50) Home Medications: Medication Instructions Recorded amLODIPine BESYLATE [Norvasc 5 mg 5 mg PO DAILY #30 tab 08/04/16 (*)] Acetaminophen [Tylenol ES 500 mg 1,000 mg PO Q8HRS tab 06/15/18 (*)] Heparin [Heparin SC 5000 unit/0.5 5,000 unit SC Q8HRS inj 06/15/18 ml (*)] traMADol [Ultram 50 mg (*)] 50 mg PO Q6HRS PRN tab 06/15/18 Departure - Departure Disposition: [facility] Acute Clinical Impression: Atrial flutter, Dehydration, DVT (deep venous thrombosis), Acute kidney injury Condition: Fair
[2018-06-22] MEDS ORDERED: NS 500 ML IV ONE (13:04)
[2018-06-22 13:10] LABS: PLATELET COUNT 265 10^3/uL (150-400)
[2018-06-22 13:31] LABS: INR 1.19 (0.83-1.16); PROTIME(PATIENT) 15.3 SEC (12.0-15.0)
[2018-06-22] MEDS ORDERED: ONDANSETRON 4 MG/2 ML VIAL IVP PRN (16:23)
[2018-06-22] MEDS ORDERED: ONDANSETRON DISINTEGRATING 4 MG TAB PO PRN (16:23)
--- NOTE | 2018-06-22 16:33 | PDGENHP ---
<Diana Ospina - Last Filed: 06/22/18 17:58> History and Physical - Chief Complaint Elevated creatinine - History of Present Illness 83 y/o male with history significant for recent right femoral ORIF caused by mechanical fall and encephalopathy presents to the ED because of elevated creatinine. Doppler reveals right DVT from popliteal vein through peroneal and posterior tibial veins. The patient is a poor historian and defers many questions to his POA, Velia Fragoso, who also happens to be a friend who lives close by. Velia was absent during patient interaction. Velia has been contacted and waiting for call back. The patient denies any pain, chest pains, SOB, lightheadedness, fevers/chills. Endorses not having much of an appetite and not drinking fluids. Past Medical History/Surgical History 1. Recent femoral neck fracture - ORIF on 06/08 2. EUGENIO 3. Hyperkalemia 4. Encephalopathy 5. Paroxysmal Atrial Fibrillation Flutter 6. Thrombocytopenia 7. Hypertension 8. Diabetes II (Diet-Controlled) 9. Peripheral Vascular Disease 10. Aortic Aortic Aneurysm > 6 cm 11. Spinal stenosis 12. BPH 13. Anxiety 14. Osteomyelitis 15. Psoriasis 16. Appendectomy 17. Left Hip Hemiarthroplasty 18. Stroke History Information - Allergies/Home Medication List Allergies/Adverse Reactions: Tetracyclines Allergy (Intermediate, Verified 06/07/18 23:50) Vomiting azithromycin Allergy (Unknown, Verified 06/07/18 23:50) Itching nitrofurantoin [From Macrobid] Allergy (Unknown, Verified 06/07/18 23:50) nitrofurantoin macrocrystalline [From Macrobid] Allergy (Unknown, Verified 06/07 23:50) Penicillins Allergy (Unknown, Verified 06/07/18 23:50) Sulfa (Sulfonamide Antibiotics) Allergy (Unknown, Verified 06/07/18 23:50) I have personally reviewed and updated: family history, medical history, social history, surgical history Past Medical History: See HPI - Past Medical History Additional medical history: Hypertension. Abdominal aortic aneurysm > 6 cm. repair and stent was recommended by Dr. Dietrich and Dr. Srinivasan however patient did decline any intervention. Peripheral vascular disease. Diabetes type 2, diet controlled. History of falls. Spinal stenosis with history of right footdrop. Vertigo. History Of osteomyelitis. psoriasis. BPH with history of urinary retention requiring catheter. History PE DVT remotely not on anticoagulation at this time. Cataracts in and blindness but patient has declined any repair. Anxiety. Paroxysmal atrial fib flutter. - Surgical History Additional surgical history: Appendectomy. Left hip hemiarthroplasty after fracture 09/06/2017. - Family History Positive for: stroke (In mother) - Social History Smoking Status: Former smoker Alcohol Use: None Drug Use: None Additional social history: Patient currently lives alone in low-income housing. He has no family in this area reports having 1 daughter in [place], [place]. Patient is MDPOA is Velia Fragoso a good friend and neighbor. Spoke to Velia madsen who reports his code status is limited - he does not want chest compressions because of his AAA. Review of Systems Review of Systems: ROS: 10pt was reviewed & negative except for what was stated in HPI & below Constitutional: Reports: recent injury EENMT: Reports: no symptoms Cardiac: Reports: no symptoms Respiratory: Reports: no symptoms Gastrointestinal: Reports: no symptoms Genitourinary: Reports: no symptoms Muscolosketal: Reports: no symptoms Skin: Reports: no symptoms Neurological: Reports: no symptoms Hematologic/Lymphatic: Reports: no symptoms Immunologic/Allergy: Reports: other (See Allergy List) Physical Exam Physical Exam: Lab data and Imaging reviewed RBC: 2.94 HgB/Hct: 8.3/27.2 INR: 1.19 Potassium: 5.2 BUN/Creatinine: 50/2.6 CXR: Stable left basilar consolidation Doppler: RLE DVT extending from popliteal vein through peroneal and posterior tibial veins. Temp Pulse Resp BP Pulse Ox 36.3 C 89 28 H 123/57 H 90 L 06/22/18 16:02 06/22/18 16:02 06/22/18 16:02 06/22/18 16:02 06/22/18 16:02 Constitutional: no apparent distress, appears nourished, not in pain Eyes: PERRL, anicteric sclera, EOMI Ears, Nose, Mouth, Throat: moist mucous membranes, hearing normal, ears appear normal, no oral mucosal ulcers Cardiovascular: no murmur, rub, or gallop, irregularly irregular, No edema Peripheral Pulses: 0: dorsalis-pedis (R) (Unable to palpate pulse; Radial pulse 2+), 1+: dorsalis-pedis (L) (Radial pulse 2+) Respiratory: no respiratory distress, no rales or rhonchi, clear to auscultation Gastrointestinal: normoactive bowel sounds, soft, non-tender abdomen, no palpable masses Genitourinary: no bladder fullness, no bladder tenderness Skin: warm, erythema (RLE crural erythematous, edematous, weeping blisters, intact serous blisters dorsal pedal LLE crural chronic brown coloring PVD) Musculoskeletal: full muscle strength, no muscle tenderness, normal joint ROM, no joint effusions Neurologic: sensation intact bilaterally, CN II-XII Intact, other (A&Ox2, person and place. Per Velia, he is confused from medications and recent surgery.) Psychiatric: encephalopathic Lymph, Heme, Immunologic: no cervical LAD, no supraclavicular LAD Lab Data & Imaging Review 06/22/18 12:54 06/22/18 12:54 WBC 7.64 10^3/uL (3.80-9.50) 06/22/18 12:54 RBC 2.94 10^6/uL (4.40-6.38) L 06/22/18 12:54 Hgb 8.3 g/dL (13.7-17.5) L 06/22/18 12:54 Hct 27.2 % (40.0-51.0) L 06/22/18 12:54 MCV 92.5 fL (81.5-99.8) 06/22/18 12:54 MCH 28.2 pg (27.9-34.1) 06/22/18 12:54 MCHC 30.5 g/dL (32.4-36.7) L 06/22/18 12:54 RDW 14.4 % (11.5-15.2) 06/22/18 12:54 Plt Count 265 10^3/uL (150-400) 06/22/18 12:54 MPV 10.8 fL (8.7-11.7) 06/22/18 12:54 Neut % (Auto) 81.2 % (39.3-74.2) H 06/22/18 12:54 Lymph % (Auto) 11.0 % (15.0-45.0) L 06/22/18 12:54 [place] % (Auto) 6.4 % (4.5-13.0) 06/22/18 12:54 Eos % (Auto) 0.8 % (0.6-7.6) 06/22/18 12:54 Baso % (Auto) 0.1 % (0.3-1.7) L 06/22/18 12:54 Nucleat RBC Rel Count 0.0 % (0.0-0.2) 06/22/18 12:54 Absolute Neuts (auto) 6.20 10^3/uL (1.70-6.50) 06/22/18 12:54 Absolute Lymphs (auto) 0.84 10^3/uL (1.00-3.00) L 06/22/18 12:54 Absolute Monos (auto) 0.49 10^3/uL (0.30-0.80) 06/22/18 12:54 Absolute Eos (auto) 0.06 10^3/uL (0.03-0.40) 06/22/18 12:54 Absolute Basos (auto) 0.01 10^3/uL (0.02-0.10) L 06/22/18 12:54 Absolute Nucleated RBC 0.00 10^3/uL (0-0.01) 06/22/18 12:54 Immature Gran % 0.5 % (0.0-1.1) 06/22/18 12:54 Immature Gran # 0.04 10^3/uL (0.00-0.10) 06/22/18 12:54 PT 15.3 SEC (12.0-15.0) H 06/22/18 12:54 INR 1.19 (0.83-1.16) H 06/22/18 12:54 APTT 30.9 SEC (23.0-38.0) 06/22/18 12:54 Sodium 142 mEq/L (135-145) 06/22/18 12:54 Potassium 5.2 mEq/L (3.3-5.0) H 06/22/18 12:54 Chloride 109 mEq/L (97-110) 06/22/18 12:54 Carbon Dioxide 21 mEq/l (22-31) L 06/22/18 12:54 Anion Gap 12 mEq/L (6-14) 06/22/18 12:54 BUN 50 mg/dL (7-23) H 06/22/18 12:54 Creatinine 2.6 mg/dL (0.7-1.3) H 06/22/18 12:54 Estimated GFR 24 06/22/18 12:54 Glucose 96 mg/dL (70-100) 06/22/18 12:54 Calcium 8.0 mg/dL (8.5-10.4) L 06/22/18 12:54 Total Bilirubin 0.9 mg/dL (0.1-1.4) 06/22/18 12:54 Conjugated Bilirubin 0.4 mg/dL (0.0-0.5) 06/22/18 12:54 Unconjugated Bilirubin 0.5 mg/dL (0.0-1.1) 06/22/18 12:54 AST 45 IU/L (17-59) 06/22/18 12:54 ALT 44 IU/L (21-72) 06/22/18 12:54 Alkaline Phosphatase 93 IU/L (38-126) 06/22/18 12:54 Total Protein 6.9 g/dL (6.3-8.2) 06/22/18 12:54 Albumin 3.4 g/dL (3.5-5.0) L 06/22/18 12:54 Assessment & Plan Assessment: 83 y/o male with history of recent right hip surgery (06/08) and encephalopathy presents with active right lower extremity DVT, acute kidney injury, and dehydration. Plan: 1. DVT: higher risk developing DVT because of recent surgery. He was receiving prophylaxis heparin injections at [facility]. -Lovenox 100 mg SubQ QD; will need to alter dose and/or frequency based on his CrCl clearance tomorrow -SCDs to LLE 2. EUGENIO on most likely CKD: BUN/Creat 50/2.6. Recent visit (06/11) creatinine 1.5 -Urinalysis, Random Sodium, Random Creatinine. Check FeNa to decipher pre- renal versus ATN -IV Fluids 3. RLE Wounds: crural erythematous, edematous, weeping blisters. -Wound consult 4. Encephalopathy: goal is hydrate the patient, allow renal function to improve therefore improving mental status of the patient. Continue to monitor 5. Anemia: this appears to be chronic and stable. Continue to monitor 6. HTN: continue home medications 7. Diabetes II: continue to monitor. Diet controlled. 8. Hyperkalemia: chronic and stable. Continue to monitor. If progressively elevated, consider Kayexalate. -Bowel Regimen 9. Paroxysmal Atrial Fibrillation: continue to monitor. Anti-coagulants. 10. AAA > 6 cm: He defers treatment at this time. Diet: Regular VTE ppx: Lovenox, SCDs Code: Limited Dispo: Admit to inpatient <Lesli Cedeno - Last Filed: 06/22/18 21:57> History and Physical - History of Present Illness Review of Systems Review of Systems: Physical Exam Physical Exam: Temp Pulse Resp BP Pulse Ox 36.3 C 89 28 H 123/57 H 90 L 06/22/18 16:02 06/22/18 16:02 06/22/18 16:02 06/22/18 16:02 06/22/18 16:02 Lab Data & Imaging Review 06/22/18 12:54 06/22/18 12:54 WBC 7.64 10^3/uL (3.80-9.50) 06/22/18 12:54 RBC 2.94 10^6/uL (4.40-6.38) L 06/22/18 12:54 Hgb 8.3 g/dL (13.7-17.5) L 06/22/18 12:54 Hct 27.2 % (40.0-51.0) L 06/22/18 12:54 MCV 92.5 fL (81.5-99.8) 06/22/18 12:54 MCH 28.2 pg (27.9-34.1) 06/22/18 12:54 MCHC 30.5 g/dL (32.4-36.7) L 06/22/18 12:54 RDW 14.4 % (11.5-15.2) 06/22/18 12:54 Plt Count 265 10^3/uL (150-400) 06/22/18 12:54 MPV 10.8 fL (8.7-11.7) 06/22/18 12:54 Neut % (Auto) 81.2 % (39.3-74.2) H 06/22/18 12:54 Lymph % (Auto) 11.0 % (15.0-45.0) L 06/22/18 12:54 [place] % (Auto) 6.4 % (4.5-13.0) 06/22/18 12:54 Eos % (Auto) 0.8 % (0.6-7.6) 06/22/18 12:54 Baso % (Auto) 0.1 % (0.3-1.7) L 06/22/18 12:54 Nucleat RBC Rel Count 0.0 % (0.0-0.2) 06/22/18 12:54 Absolute Neuts (auto) 6.20 10^3/uL (1.70-6.50) 06/22/18 12:54 Absolute Lymphs (auto) 0.84 10^3/uL (1.00-3.00) L 06/22/18 12:54 Absolute Monos (auto) 0.49 10^3/uL (0.30-0.80) 06/22/18 12:54 Absolute Eos (auto) 0.06 10^3/uL (0.03-0.40) 06/22/18 12:54 Absolute Basos (auto) 0.01 10^3/uL (0.02-0.10) L 06/22/18 12:54 Absolute Nucleated RBC 0.00 10^3/uL (0-0.01) 06/22/18 12:54 Immature Gran % 0.5 % (0.0-1.1) 06/22/18 12:54 Immature Gran # 0.04 10^3/uL (0.00-0.10) 06/22/18 12:54 PT 15.3 SEC (12.0-15.0) H 06/22/18 12:54 INR 1.19 (0.83-1.16) H 06/22/18 12:54 APTT 30.9 SEC (23.0-38.0) 06/22/18 12:54 Sodium 142 mEq/L (135-145) 06/22/18 12:54 Potassium 5.2 mEq/L (3.3-5.0) H 06/22/18 12:54 Chloride 109 mEq/L (97-110) 06/22/18 12:54 Carbon Dioxide 21 mEq/l (22-31) L 06/22/18 12:54 Anion Gap 12 mEq/L (6-14) 06/22/18 12:54 BUN 50 mg/dL (7-23) H 06/22/18 12:54 Creatinine 2.6 mg/dL (0.7-1.3) H 06/22/18 12:54 Estimated GFR 24 06/22/18 12:54 Glucose 96 mg/dL (70-100) 06/22/18 12:54 Calcium 8.0 mg/dL (8.5-10.4) L 06/22/18 12:54 Total Bilirubin 0.9 mg/dL (0.1-1.4) 06/22/18 12:54 Conjugated Bilirubin 0.4 mg/dL (0.0-0.5) 06/22/18 12:54 Unconjugated Bilirubin 0.5 mg/dL (0.0-1.1) 06/22/18 12:54 AST 45 IU/L (17-59) 06/22/18 12:54 ALT 44 IU/L (21-72) 06/22/18 12:54 Alkaline Phosphatase 93 IU/L (38-126) 06/22/18 12:54 Total Protein 6.9 g/dL (6.3-8.2) 06/22/18 12:54 Albumin 3.4 g/dL (3.5-5.0) L 06/22/18 12:54 Urine Color YELLOW 06/22/18 18:36 Urine Appearance CLEAR 06/22/18 18:36 Urine pH 5.0 (5.0-7.5) 06/22/18 18:36 Ur Specific [place] 1.009 (1.002-1.030) 06/22/18 18:36 Urine Protein NEGATIVE (NEGATIVE) 06/22/18 18:36 Urine Ketones NEGATIVE (NEGATIVE) 06/22/18 18:36 Urine Blood NEGATIVE (NEGATIVE) 06/22/18 18:36 Urine Nitrate NEGATIVE (NEGATIVE) 06/22/18 18:36 Urine Bilirubin NEGATIVE (NEGATIVE) 06/22/18 18:36 Urine Urobilinogen NEGATIVE EU (0.2-1.0) 06/22/18 18:36 Ur Leukocyte Esterase NEGATIVE (NEGATIVE) 06/22/18 18:36 Ur Random Creatinine 56.3 mg/dL 11/05/18 18:36 Ur Random Sodium 64 mEq/L (30-90) 06/22/18 18:36 Urine Glucose NEGATIVE (NEGATIVE) 06/22/18 18:36 Assessment & Plan Assessment: DVT (deep venous thrombosis) (Acute) Acute kidney injury (Acute) Dehydration (Acute) Atrial flutter (Acute) Plan: Patient seen and evaluated with and separately from NATALIIA Ospina. Agree with her plan as outlined above, please see separate note for further details
[2018-06-22] MEDS: NS 1,000 ML IV SCH (17:01)
[2018-06-22] MEDS ORDERED: ENOXAPARIN 100 MG/ML SYR SC SCH ×2 (17:45)
[2018-06-22] MEDS ORDERED: MAGNESIUM HYDROXIDE 30 ML UDCUP PO PRN (18:10)
[2018-06-22] MEDS ORDERED: LACTULOSE 20 GM/30 ML UDCUP PO PRN (18:10)
[2018-06-22] MEDS ORDERED: POLYETHYLENE GLYCOL 3350 17 GM PKT PO PRN (18:10)
[2018-06-22] MEDS ORDERED: BISACODYL 10 MG SUPP PR PRN (18:10)
[2018-06-22] MEDS ORDERED: HALOPERIDOL LACT 5 MG/ML INJ IVP PRN (19:04)
[2018-06-22] MEDS: SENNOSIDES/DOCUSATE SODIUM TAB PO SCH (20:57)
--- NOTE | 2018-06-22 21:27 | CPEKG ---
Test Reason : OPEN Blood Pressure : / mmHG Vent. Rate : 066 BPM Atrial Rate : 233 BPM P-R Int : 187 ms QRS Dur : 153 ms QT Int : 450 ms P-R-T Axes : 259 053 -48 degrees QTc Int : 472 ms Sinus or ectopic atrial rhythm IVCD, consider atypical RBBB Confirmed by Hernán Sullivan ([id number]) on 06/22/2018 9:27:01 PM Referred By: Confirmed By:Hernán Sullivan
--- NOTE | 2018-06-22 22:01 | HOSPPROG ---
Hospitalist Progress Note Assessment/Plan: 83 yo M with recent admission for femoral neck fracture now admitted with RLE DVT # RLE DVT: with relatively significant associated swelling and blisters on lower extremity. This is occurring s/p recent right HERNAN, but patient was receiving ppx dose heparin at SNF in post op period. Will start lovenox renally dosed at 100mg qday, if renal function improves with IVF this will need redosing in am. # gunnar on ckd: patient with baseline creatinine of 1.5-1.7, currently at 2.6. Patient espouses poor po intake but also had bladder scan with 800ml in bladder , will place melissa, gentle IVF overnight, recheck in am # hyperkalemia: mild and in setting of above, suspect this will improve with IVF # acute metabolic encephalopathy: patient noted to be confused as to where he is and what was going on, he does have dementia at baseline but generally is oriented to place. Suspect this is driven by hospitalization, urinary retention. Small dose of haldol ordered. # a fib/flutter: rate controlled, ecg in ER c/w flutter, continue op meds # gait instability: pt/ot to evaluate # observation status Patient new to my care. Old records reviewed and summarized as above. Care plan reviewed with ER doctor as above. Patient seen and evaluated with NATALIIA Ospina, please see her separate note for further details. Objective: Vital Signs Temp Pulse Resp BP Pulse Ox 36.3 C 89 28 H 123/57 H 90 L 06/22/18 16:02 06/22/18 16:02 06/22/18 16:02 06/22/18 16:02 06/22/18 16:02 06/21/18 06/22/18 06/23/18 05:59 05:59 05:59 Intake Total 500 Output Total 300 Balance 200 PT 15.3 SEC (12.0-15.0) H 06/22/18 12:54 INR 1.19 (0.83-1.16) H 06/22/18 12:54 ICD10 Worksheet Patient Problems: Problems Problem Status Onset DVT (deep venous thrombosis) Acute Acute kidney injury Acute chronic disease mgmt/transitional care Acute Nausea, vomiting, and diarrhea Acute Pancreatitis Acute Dehydration Acute Hypoxemia Acute Head injury Acute Cervical strain Acute Pulmonary embolus Acute Elevated troponin Acute Palliative care encounter Acute Pneumonia Acute Toe infection Acute Atrial flutter Acute Vomiting Acute Displaced fracture of right femoral neck Acute
[2018-06-22] MEDS: ACETAMINOPHEN 325 MG TAB PO PRN (23:26)
[2018-06-22] MEDS ORDERED: LORazepam 1 MG TAB PO PRN (23:44)
[2018-06-22] MEDS ORDERED: QUEtiapine FUMARATE 25 MG TAB PO ONE (23:44)
--- NOTE | 2018-06-23 11:58 | ASMTCMCOM ---
CM Note CM Note Notes: Pt is a 83 y/o man admitted for elevated creatinine. Pt had a mechanical fall and encephalopathy. Pt is a poor historian. Pts MDPOA is Velia Fragoso, a close friend who lives nearby. Pt is currently getting rehab at [facility]. Updates sent to [facility]. CM spoke to Ria with [facility] and she reports that pt is more than welcome to return. OT and wound care have been ordered. CM to follow. Plan: SNF Date Signed: 06/23/2018 11:57 AM Electronically Signed By:LYDIA Loya
[2018-06-23] MEDS: TAMSULOSIN HCL 0.4 MG CAP PO SCH (13:54)
[2018-06-23] MEDS: SENNOSIDES/DOCUSATE SODIUM TAB PO SCH ×2 (13:54→13:55)
[2018-06-23] MEDS: amLODIPine BESYLATE 5 MG TAB PO SCH (13:55)
[2018-06-23] MEDS: ENOXAPARIN 100 MG/ML SYR SC SCH ×2 (13:58→20:11)
--- NOTE | 2018-06-23 16:15 | HOSPPROG ---
Hospitalist Progress Note Assessment/Plan: 83 yo M with recent admission for femoral neck fracture now admitted with RLE DVT. # RLE DVT: Provoked with recent surgery. 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 Warfarin likely not good option for him, plan for DOAC. # EUGENIO on CKD: Improving. Suspect combo of obstructive and prerenal/hypovolemic. [place] [facility] - IVF, melissa in place, on flomax. May need melissa at dc with urology f/u # Hyperkalemia: Resolving with improving renal fxn. Monitor # Acute on chronic metabolic encephalopathy: Not decisional at present. Proxy, Velia, states currently at recent baseline - Ordered zyprexa hs to help with sun-downing, delirium precautions # Afib/flutter: ECT with flutter, rate controlled - Continue outpt meds # Deconditioning/gait instability - PT/OT, currently at [facility] # Recent R femoral neck frx s/p ORIF - Needs joanne removed # Aortic aneurysm: >6cm on 08/2017 imaging. He has previously declined repair. Seen by Dr Dietrich in past. # BPH # PVD: s/p left 2nd toe amputation. Previously complicated by OM. Dispo: Switch to inpatient for ongoing management of renal insufficiency, monitoring of H/H on anticoagulation. Will need therapy Subjective: Very grumpy. Not wanting to talk. Says we shouldn't be concerned about him. Doesn't believe that he's in a hospital. Cannot tell me that he has a blood clot. Objective: Vital Signs Temp Pulse Resp BP Pulse Ox 37.2 C 63 14 115/92 H 92 06/23/18 12:00 06/23/18 12:00 06/23/18 12:00 06/23/18 13:55 06/23/18 12:00 Laboratory Results 06/23/18 15:51 06/23/18 05:04 06/22/18 06/23/18 06/24/18 05:59 05:59 05:59 Intake Total 1500 Output Total 2750 Balance -1250 PT 15.3 SEC (12.0-15.0) H 06/22/18 12:54 INR 1.19 (0.83-1.16) H 06/22/18 12:54 - Physical Exam Constitutional: no apparent distress Eyes: PERRL, anicteric sclera, EOMI Ears, Nose, Mouth, Throat: moist mucous membranes, hearing normal, ears appear normal, no oral mucosal ulcers Cardiovascular: regular rate and rhythym Respiratory: no respiratory distress, No expiratory wheeze Gastrointestinal: normoactive bowel sounds Genitourinary: melissa in urethra Skin: other (patient wouldn't let me look at recent hip surgical incision) Neurologic: other (alert but not oriented) Psychiatric: encephalopathic ICD10 Worksheet Patient Problems: Problems Problem Status Onset Acute kidney injury Acute Atrial flutter Acute DVT (deep venous thrombosis) Acute Dehydration Acute Cervical strain Acute Displaced fracture of right femoral neck Acute Elevated troponin Acute Head injury Acute Hypoxemia Acute Nausea, vomiting, and diarrhea Acute Palliative care encounter Acute Pancreatitis Acute Pneumonia Acute Pulmonary embolus Acute Toe infection Acute Vomiting Acute chronic disease mgmt/transitional care Acute
--- NOTE | 2018-06-23 17:40 | PDMN ---
Medical Necessity Medical necessity: [facility] [place] M326 ARF and M350 DVT: 83 yo with history significant for recent right femoral ORIF caused by mechanical fall and encephalopathy presents to the ED because of elevated creatinine 2.6 and hyperkalemia. Doppler reveals right DVT from popliteal vein through peroneal and posterior tibial veins. anemic w/ drop overnight. acute on chronic metabolic encephalopathy continues, not decisional at present, pt is deconditioned w/ gait instability, PT/OT evals, switch to inpatient for ongoing management of renal insufficiency, creat remains elevated at 2.1, monitoring of H/H on anticoagulation. Will need therapy. Pt remains of IVF. Hx of. 1. Recent femoral neck fracture - ORIF on 06/08. 2. EUGENIO. 3. Hyperkalemia. 4. Encephalopathy. 5. Paroxysmal Atrial Fibrillation Flutter. 6. Thrombocytopenia. 7. Hypertension. 8. Diabetes II (Diet-Controlled). 9. Peripheral Vascular Disease. 10. Aortic Aortic Aneurysm > 6 cm. 11. Spinal stenosis. 12. BPH. 13. Anxiety. 14. Osteomyelitis. 15. Psoriasis. 16. Appendectomy. 17. Left Hip Hemiarthroplasty. 18. Stroke. Change to IP status 05/23/18 @1603 per MD order
[2018-06-23] MEDS: ACETAMINOPHEN 325 MG TAB PO PRN (20:09)
[2018-06-23] MEDS ORDERED: OLANZapine 5 MG TAB PO SCH (21:00)
[2018-06-23] MEDS ORDERED: guaiFENesin 600 MG TAB.ER PO PRN (23:25)
[2018-06-24] MEDS: ENOXAPARIN 100 MG/ML SYR SC SCH (08:14)
[2018-06-24] MEDS: SENNOSIDES/DOCUSATE SODIUM TAB PO SCH ×2 (12:27→22:27)
[2018-06-24] MEDS: amLODIPine BESYLATE 5 MG TAB PO SCH (12:28)
[2018-06-24] MEDS: TAMSULOSIN HCL 0.4 MG CAP PO SCH (12:28)
--- NOTE | 2018-06-24 16:50 | HOSPPROG ---
Hospitalist Progress Note Assessment/Plan: 83 yo M with recent admission for femoral neck fracture now admitted with RLE DVT. # RLE DVT: Provoked with recent surgery, plan for at least 3 months of anticoagulation. 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 Fe deficient back in August. - Recheck Fe stores, replete as necessary, monitor H/H on anticoagulation # EUGENIO on CKD: Improving, baseline 1-1.2. Suspect combo of obstructive and prerenal/hypovolemic. [place] [facility] - IVF, melissa in place, on flomax # Urinary retention, BPH - Attempt to remove melissa tomorrow, if unable then will need outpt urology follow up # RLE wounds: Present on arrival. - Wound care following # Hyperkalemia: Resolved with improving renal fxn. Monitor # Acute on chronic metabolic encephalopathy: Much improved. Oriented today. Decisional. Proxy, Velia, states currently at baseline - Zyprexa hs prn to help with sun-downing, delirium precautions # Afib/flutter: ECG with flutter, rate controlled - Continue outpt meds # Deconditioning/gait instability - PT/OT, currently at [facility] # Recent R femoral neck frx s/p ORIF - Needs joanne removed # Aortic aneurysm: >6cm on 08/2017 imaging. He has previously declined repair. Seen by Dr Dietrich in past. # PVD: s/p left 2nd toe amputation. Previously complicated by OM. # T2DM: diet controlled Dispo: Continue inpatient for monitoring H/H, renal function, PT/OT, wound care Subjective: Overall much better. Interactive, answering questions appropriately. Denies pain, sob. No bleeding. Objective: Vital Signs Temp Pulse Resp BP Pulse Ox 37.3 C 69 18 120/53 L 93 06/24/18 08:00 06/24/18 08:00 06/24/18 08:00 06/24/18 08:00 06/24/18 08:00 Laboratory Results 06/24/18 13:10 06/24/18 13:10 06/23/18 06/24/18 06/25/18 05:59 05:59 05:59 Intake Total 2700 Output Total 1750 750 Balance 950 -750 PT 15.3 SEC (12.0-15.0) H 06/22/18 12:54 INR 1.19 (0.83-1.16) H 06/22/18 12:54 - Physical Exam Constitutional: no apparent distress, appears nourished, not in pain Eyes: PERRL, anicteric sclera, EOMI Ears, Nose, Mouth, Throat: moist mucous membranes, hearing normal, ears appear normal, no oral mucosal ulcers Cardiovascular: regular rate and rhythym, no murmur, rub, or gallop Respiratory: no respiratory distress, no rales or rhonchi, clear to auscultation Gastrointestinal: normoactive bowel sounds, soft, non-tender abdomen, no palpable masses Genitourinary: melissa in urethra Skin: other (2 dressings on RLE) Musculoskeletal: full muscle strength, no muscle tenderness, normal joint ROM Neurologic: AAOx3, sensation intact bilaterally Psychiatric: interacting appropriately ICD10 Worksheet Patient Problems: Problems Problem Status Onset Acute kidney injury Acute Atrial flutter Acute DVT (deep venous thrombosis) Acute Dehydration Acute Cervical strain Acute Displaced fracture of right femoral neck Acute Elevated troponin Acute Head injury Acute Hypoxemia Acute Nausea, vomiting, and diarrhea Acute Palliative care encounter Acute Pancreatitis Acute Pneumonia Acute Pulmonary embolus Acute Toe infection Acute Vomiting Acute chronic disease mgmt/transitional care Acute
[2018-06-24] MEDS ORDERED: OLANZapine 5 MG TAB PO PRN (16:57)
--- NOTE | 2018-06-24 17:00 | WOCRNPDOC ---
[facility] Advanced Assessment Note - Skin Integrity Problem, Advanced Assess Right Foot Dressing Type: Allevyn Life, Vaseline Gauze Dressing Dressing Description: Clean/Dry, Intact Exudate Amount: None Integumentary Issue Intervention: Visualized Under Dressing Leonor Wound Tissue: Erythema (dark purple mottling to 2 cm leonor bullae) Wound Bed Constitution: Intact Serous Filled Blister Site Measurement - Head-to-Toe Length X Width X Depth (cm): 5.3x2.2xraised bullae Skin Integrity Problem Comment: Large intact bullae on right dorsal foot with mottling dark red erythema surrounding it. It is similar to surrounding wounds on right anterior lower leg. Left Lateral Heel Pressure Injury Dressing Type: Open to Air Site Measurement - Head-to-Toe Length X Width X Depth (cm): 1.7x1.3x0 Pressure Injury Stage: Unstageable Pressure Injury Present on Admit: Yes Skin Integrity Problem Comment: Old healing wound. Eschar has come off and now just discolored purple non blanching tissue remains. Offload with heel boots. Patient refused heel boots with wound RN. Right Lower Leg Dressing Type: Allevyn Life, Vaseline Gauze Dressing Dressing Description: Clean/Dry, Intact Exudate Amount: Minimal Exudate Color: Yellow, Green Exudate Characteristic(s): Cloudy Integumentary Issue Intervention: Dressing Changed Leonor Wound Tissue: Erythema (dark red/purple mottling ), Painful/Tender Wound Bed Constitution: Granulation Tissue (70% on middle wound, 90% on distal wounds), Intact Serous Filled Blister (proximal to all the other wounds), Intact Sanguineous Blister (lateral to distal wound x 3 2.7x0.8xblister) Wound Edges: Attached Site Odor: Slight, Musky Site Measurement - Head-to-Toe Length X Width X Depth (cm): Middle wound: 6x5.8x0.2, Distal wound: 3.3x5x0.1, Patient refused to move to measure medial/ distal wound. Bullae intact at superior heaton is 1.2x1.2 Skin Integrity Problem Comment: Multiple very painful wounds on anterior lower leg. Wound may be infected and a alegre culture of middle (largest) wound was obtained with difficulty due to patient non cooperation and screaming. Wound photo was sent to Dr. Tamayo. Patient would not reposition for wound care assessment/care. He way lying on his left side so only a partial assessment/ measurements could be done. Cleaned with ns. Wound gel to wound beds and covered with Aquacel Ag foam dressings. Secured with medipore tape and netting. Report to Dionne Medel. Right Heel Pressure Injury Dressing Type: Open to Air Wound Bed Constitution: Healed Site Measurement - Head-to-Toe Length X Width X Depth (cm): 2x1x0 Pressure Injury Present on Admit: Yes Skin Integrity Problem Comment: Almost fully healed pressure injury. Firth fully epithelized base. Unknown previous stage, but was full thickness. Patient refused to put on heel boots.
[2018-06-24] MEDS ORDERED: APIXABAN 2.5 MG TAB PO SCH (21:00)
[2018-06-24] MEDS: APIXABAN 5 MG TAB PO SCH (22:27)
[2018-06-25] MEDS: amLODIPine BESYLATE 5 MG TAB PO SCH (14:01)
[2018-06-25] MEDS: TAMSULOSIN HCL 0.4 MG CAP PO SCH (14:03)
[2018-06-25] MEDS: SENNOSIDES/DOCUSATE SODIUM TAB PO SCH ×2 (14:03→20:52)
[2018-06-25] MEDS: APIXABAN 5 MG TAB PO SCH ×2 (14:03→20:50)
--- NOTE | 2018-06-25 18:55 | HOSPPROG ---
Hospitalist Progress Note Assessment/Plan: 83 yo M with recent admission for femoral neck fracture now admitted with RLE DVT. DIAGNOSES: # RLE DVT: Provoked with recent surgery. 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 and on AC until earlier this year) - he was started on Eliquis which is reasonable, but will need to watch his renal function closely for appropriate dosing # new onset blistering lesions leading to rapid ulceration on the right pretibial area and the dorsum of the right foot with surrounding capillaritis * Appearance raises possible concern for pyoderma gangrenosum, though he does not have any history of illnesses that would predispose * Overall appearance raises concern for more likely inflammatory than infectious cause, but culture is growing a coag-negative staph # Anemia: - stable today multifactorial but suspect inflammatory cause, in setting of postoperative anemia # EUGENIO on CKD: Improving. Suspect combo of obstructive and prerenal/hypovolemic. [place] UA - IVF, melissa in place, on flomax; would be appropriate to remove Melissa at present # Hyperkalemia: Resolving with improving renal fxn. Monitor # Acute on chronic metabolic encephalopathy: - Ordered zyprexa hs to help with sun-downing, delirium precautions -notably better today, closer to baseline # Afib/flutter: ECT with flutter, rate controlled - Continue outpt meds # Deconditioning/gait instability - PT/OT, currently at [facility] # Recent R femoral neck frx s/p ORIF - Needs joanne removed # Aortic aneurysm: >6cm on 08/2017 imaging. He has previously declined repair. Seen by Dr Dietrich in past. # BPH # PVD: s/p left 2nd toe amputation. Previously complicated by OM. PLANS: * Will need to likely have a skin biopsy to diagnose the lesions on his leg * For the time being empiric antibiotics started in case this actually is a cellulitic infection * Continue hydration and follow renal function * Follow anemia * Follow neurologic status closely * Physical occupational therapy * Need joanne removed from his hip surgery SUBJECTIVE: Feels better overall today Little pain at his leg Mobilizing bit better with therapists OBJECTIVE Vitals reviewed: Did have a temperature 37.9 degrees last night otherwise normal temperatures and stable vital signs Exam: alert oriented talkative skin warm dry color ok resps not labored lungs clear BSs heart regular abd soft nondistended nontender, bowel sounds present limbs right leg remarkable for blistering lesions that started on the pretibial last night which have now opened in ulcerated, borders slightly undermined 2 large ulcers with some surrounding capsularitis, does not look like a cellulitis ; now has 2 new blistered areas with some hemorrhage on the dorsum of the right foot, no surrounding cellulitis there iv site ok Laboratory data are reviewed in detail by me today Objective: Vital Signs Temp Pulse Resp BP Pulse Ox 37.1 C 73 16 99/50 L 97 06/25/18 16:00 06/25/18 16:00 06/25/18 16:00 06/25/18 16:00 06/25/18 16:00 Microbiology 06/24/18 17:30 Gram Stain - Final Leg - Swab Laboratory Results 06/24/18 13:10 06/24/18 13:10 06/24/18 06/25/18 06/26/18 06:59 06:59 06:59 Intake Total 2700 400 Output Total 1750 2250 Balance 950 -2250 400 PT 15.3 SEC (12.0-15.0) H 06/22/18 12:54 INR 1.19 (0.83-1.16) H 06/22/18 12:54 - Time Spent With Patient Time Spent with Patient: greater than 35 minutes Time Spent with Patient: Greater than 35 minutes spent on this patients care, greater than 50% of time spent counseling, educating, and coordinating care regarding the above mentioned plan. ICD10 Worksheet Patient Problems: Problems Problem Status Onset Acute kidney injury Acute Atrial flutter Acute DVT (deep venous thrombosis) Acute Dehydration Acute Cervical strain Acute Displaced fracture of right femoral neck Acute Elevated troponin Acute Head injury Acute Hypoxemia Acute Nausea, vomiting, and diarrhea Acute Palliative care encounter Acute Pancreatitis Acute Pneumonia Acute Pulmonary embolus Acute Toe infection Acute Vomiting Acute chronic disease mgmt/transitional care Acute
[2018-06-26] MEDS: amLODIPine BESYLATE 5 MG TAB PO SCH (09:27)
[2018-06-26] MEDS: TAMSULOSIN HCL 0.4 MG CAP PO SCH (09:27)
[2018-06-26] MEDS: APIXABAN 5 MG TAB PO SCH ×2 (09:27→20:20)
[2018-06-26] MEDS: SENNOSIDES/DOCUSATE SODIUM TAB PO SCH ×2 (09:28→21:27)
[2018-06-26] MEDS: ACETAMINOPHEN 325 MG TAB PO PRN (10:45)
[2018-06-26] MEDS: NS 1,000 ML IV SCH (12:30)
--- NOTE | 2018-06-26 14:47 | ASMTCMCOM ---
CM Note CM Note Notes: Pt rehabbing at [facility], will return there when medically stable. Updates faxed today. DC Plan: [facility] Date Signed: 06/26/2018 02:39 PM Electronically Signed By:Mary Cobb RN
--- NOTE | 2018-06-26 18:01 | HOSPPROG ---
Hospitalist Progress Note Assessment/Plan: 83 yo M with recent admission for femoral neck fracture now admitted with RLE DVT. DIAGNOSES: # RLE DVT: Provoked with recent surgery. 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 and on AC until earlier this year) - he was started on Eliquis which is reasonable, but will need to watch his renal function closely for appropriate dosing # new onset blistering lesions leading to rapid ulceration on the right pretibial area and the dorsum of the right foot with surrounding capillaritis * Appearance raises possible concern for pyoderma gangrenosum, though he does not have any history of illnesses that would predispose * Overall appearance raises concern for more likely inflammatory than infectious cause, but culture is growing a coag-negative staph # Anemia: - stable today multifactorial but suspect inflammatory cause, in setting of postoperative anemia # EUGENIO on CKD: Improving. Suspect combo of obstructive and prerenal/hypovolemic. [place] [facility] - IVF, melissa now removed, on flomax; # Hyperkalemia: Resolving with improving renal fxn. Monitor # Acute on chronic metabolic encephalopathy: - Ordered zyprexa hs to help with sun-downing, delirium precautions -notably better today, closer to baseline # Afib/flutter: ECT with flutter, rate controlled - Continue outpt meds # Deconditioning/gait instability - PT/OT, currently at [facility] # Recent R femoral neck frx s/p ORIF - Needs joanne removed # Aortic aneurysm: >6cm on 08/2017 imaging. He has previously declined repair. Seen by Dr Dietrich in past. # BPH # PVD: s/p remote left 2nd toe amputation. Previously complicated by OM. PLANS: * I have asked Dr. Dietrich to assess the lesions on his leg in to see if he agrees on and potential need for skin biopsy * For the time being empiric antibiotics started in case this actually is a cellulitic infection * Continue hydration, repeat creatinine ordered * Repeat CBC ordered * Follow neurologic status closely * Physical occupational therapy * Need joanne removed from his hip surgery * DVT prophylaxis patient is on Eliquis SUBJECTIVE: Feels better overall today Still pain at the ulcers on his right leg and foot Mobilizing bit better with therapists, ambulating hallway with walker OBJECTIVE Vitals reviewed: No fever last 30 hr, otherwise normal vital signs Exam: alert oriented talkative, mentation seems to be good and at his baseline skin warm dry color ok resps not labored lungs clear BSs heart regular abd soft nondistended nontender, bowel sounds present limbs no change on the blistering lesions and ulcers on his right leg and foot at this time iv site ok Objective: Vital Signs Temp Pulse Resp BP Pulse Ox 36.7 C 72 18 144/53 H 98 06/26/18 15:32 06/26/18 15:32 06/26/18 15:32 06/26/18 15:32 06/26/18 15:32 Microbiology 06/24/18 17:30 Gram Stain - Final Leg - Swab Wound Culture - Final Staphylococcus Sp Coag Neg Laboratory Results 06/24/18 13:10 06/24/18 13:10 06/25/18 06/26/18 06/27/18 06:59 06:59 06:59 Intake Total 975 Output Total 2250 900 Balance -2250 75 PT 15.3 SEC (12.0-15.0) H 06/22/18 12:54 INR 1.19 (0.83-1.16) H 06/22/18 12:54 ICD10 Worksheet Patient Problems: Problems Problem Status Onset Acute kidney injury Acute Atrial flutter Acute DVT (deep venous thrombosis) Acute Dehydration Acute Cervical strain Acute Displaced fracture of right femoral neck Acute Elevated troponin Acute Head injury Acute Hypoxemia Acute Nausea, vomiting, and diarrhea Acute Palliative care encounter Acute Pancreatitis Acute Pneumonia Acute Pulmonary embolus Acute Toe infection Acute Vomiting Acute chronic disease mgmt/transitional care Acute
--- NOTE | 2018-06-27 08:23 | PDGENHP ---
History & Physical Chief Complaint: ASKED TO SEE PATIENT FOR POSSIBLE PYODERMA GANGRENOSA History of Present Illness: 83-YEAR-OLD MALE WITH MULTIPLE HEALTH PROBLEMS IN RECENT THE RIGHT HIP FRACTURE WITH REPAIR. HE PRESENTS WITH SOME SUPERFICIAL SKIN LESIONS OVER HIS SHOWN AND NOW WITH THE TOP OF HIS FOOT WHICH APPEARED TO BE BULLOUS. RELATES NO DEFINITE TRAUMA. HE IS ON ANTICOAGULATION AND HAS A HISTORY OF POSSIBLE HYPERCOAGULABLE SYNDROME BUT NO DEFINITE HISTORY OF DVTS. THESE LESIONS ARE NOT PARTICULARLY PAINFUL HE HAS HAD NO FEVER OR SIGNS OF INFECTION POSTOP FROM HIS RIGHT HIP ORIF HE HAS DEVELOPED A DVT IN HIS POPLITEAL AND TIBIAL VEINS DOCUMENTED ON THIS ADMISSION Pertinent Past, Social, Family History: PAST MEDICAL HISTORY: APPENDECTOMY, AAA FOR WHICH SHE HAS REFUSED REPAIR, BILATERAL HIP ORIF. ALLERGIES TETRACYCLINES AZATHIOPRINE NITROFURANTOIN AND OTHERS. MEDICATIONS ARE LISTED IN THE CHART. SOCIAL HISTORY NONSMOKER. REVIEW OF SYSTEMS: -10 POINT REVIEW EXCEPT RELATED TO THE HPI. FAMILY HISTORY NONCONTRIBUTORY Relevant Physical Exam: GENERAL: ALERT COOPERATIVE 83-YEAR-OLD MALE NO ACUTE DISTRESS BUT BEDRIDDEN. HEENT NONICTERIC, NO BRUITS, PERRLA. CHEST CLEAR. COR REGULAR RHYTHM WITHOUT MURMURS. ABDOMEN SOFT PROTUBERANT NONTENDER WITH PALPABLE AAA. EXTREMITIES: RECENT RIGHT HIP SURGERY WITH SHANE STILL IN PLACE IN THE INCISION. HE HAS SUPERFICIAL BLISTERING WOUND ON THE RIGHT LEG DORSUM AND THE TOP OF THE RIGHT FOOT BUT EXCELLENT RIGHT PULSES. LEFT PEDAL PULSES ARE DIMINISHED. PSYCH ALERT, COOPERATIVE, ORIENTED. NEURO: PHYSIOLOGIC Cardiorespiratory Assessment: IMPRESSION: BLISTERING SKIN LESIONS SECONDARY TO DVT AND VENOUS INSUFFICIENCY. NO REAL SIGN OF PYODERMA. PLAN: WOULD RECOMMEND FREQUENT ELEVATION AND CONSIDERATION OF UNNA BOOT THERAPY FOR HIS RIGHT LEG. NO BIOPSY NEEDED AT THIS TIME. RISKS AND OPTIONS FULLY DISCUSSED
[2018-06-27] MEDS: SENNOSIDES/DOCUSATE SODIUM TAB PO SCH ×2 (10:06→22:38)
[2018-06-27 10:54] LABS: PLATELET COUNT 240 10^3/uL (150-400)
[2018-06-27] MEDS: TAMSULOSIN HCL 0.4 MG CAP PO SCH (11:24)
[2018-06-27] MEDS: APIXABAN 5 MG TAB PO SCH ×2 (11:24→22:30)
[2018-06-27] MEDS: amLODIPine BESYLATE 5 MG TAB PO SCH (11:25)
--- NOTE | 2018-06-27 14:26 | HOSPPROG ---
Hospitalist Progress Note Assessment/Plan: 83 yo M with recent admission for femoral neck fracture now admitted from [facility] with RLE DVT and other complications. DIAGNOSES: # RLE DVT, acute: Provoked with recent surgery. 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 Sherrell Dietrich who feels there due to his DVT and has recommended Unna boot placement # EUGENIO on CKD: Improving. Suspect combo of obstructive and prerenal/hypovolemic. [place] UA * Le initially placed, has been removed and he is currently voiding okay with improving renal function # Hyperkalemia: * Borderline at present, should be followed periodically # Acute on chronic metabolic encephalopathy: -is now back at his baseline of very mild dementia # Afib/flutter: ECT with flutter, rate controlled - Continue outpt meds # Deconditioning/gait instability - PT/OT, currently at [facility] # Recent R femoral neck frx s/p ORIF - Needs joanne removed # Aortic aneurysm: >6cm on 08/2017 imaging. He has previously declined repair. Seen by Dr Dietrich in past. PLANS: * Will request for wound care to place Unna boot on right leg and foot at Dr. Dietrich recommendation, unsure if this could be done over the weekend depending on availability of the wound care nurses * Can discontinue IV hydration at this point * Need joanne removed from his hip surgery * DVT prophylaxis patient is on Eliquis, checking dosing with pharmacy * Return to [facility] once Unna boot placed, will need ongoing skin care management which should probably be done at our wound care clinic or at Dr. 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 Long discussion with both of them at the bedside today and answered all their questions SUBJECTIVE: Feels better overall today Still pain at the ulcers on his right leg and foot Mobilizing bit better with therapists, ambulating hallway with walker OBJECTIVE Vitals reviewed: No fever last 30 hr, otherwise normal vital signs Exam: alert oriented talkative, mentation seems to be good and at his baseline skin warm dry color ok resps not labored lungs clear BSs heart regular abd soft nondistended nontender, bowel sounds present limbs no change on the blistering lesions and ulcers on his right leg and foot at this time iv site ok Lab data: Creatinine improved at 1.5, potassium at 5.2 Objective: Vital Signs Temp Pulse Resp BP Pulse Ox 37.1 C 69 16 140/69 H 92 06/27/18 08:00 06/27/18 08:00 06/27/18 08:00 06/27/18 11:25 06/27/18 08:00 Microbiology 06/24/18 17:30 Gram Stain - Final Leg - Swab Wound Culture - Final Staphylococcus Sp Coag Neg Laboratory Results 06/27/18 10:21 06/27/18 10:21 06/26/18 06/27/18 06/28/18 06:59 06:59 06:59 Intake Total 975 Output Total 900 425 Balance 75 -425 PT 15.3 SEC (12.0-15.0) H 06/22/18 12:54 INR 1.19 (0.83-1.16) H 06/22/18 12:54 - Time Spent With Patient Time Spent with Patient: greater than 35 minutes Time Spent with Patient: Greater than 35 minutes spent on this patients care, greater than 50% of time spent counseling, educating, and coordinating care regarding the above mentioned plan. ICD10 Worksheet Patient Problems: Problems Problem Status Onset Acute kidney injury Acute Atrial flutter Acute DVT (deep venous thrombosis) Acute Dehydration Acute Cervical strain Acute Displaced fracture of right femoral neck Acute Elevated troponin Acute Head injury Acute Hypoxemia Acute Nausea, vomiting, and diarrhea Acute Palliative care encounter Acute Pancreatitis Acute Pneumonia Acute Pulmonary embolus Acute Toe infection Acute Vomiting Acute chronic disease mgmt/transitional care Acute
[2018-06-28] MEDS: APIXABAN 5 MG TAB PO SCH ×2 (12:38→20:07)
[2018-06-28] MEDS: TAMSULOSIN HCL 0.4 MG CAP PO SCH (12:38)
[2018-06-28] MEDS: amLODIPine BESYLATE 5 MG TAB PO SCH ×2 (12:39→12:40)
--- NOTE | 2018-06-28 15:33 | HOSPPROG ---
Hospitalist Progress Note Assessment/Plan: 83 yo M with recent admission for femoral neck fracture now [facility] from [facility] with RLE DVT and other complications. RLE DVT, acute: Provoked with recent surgery. 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 Sherrell Dietrich who feels there due to his DVT and has recommended Unna boot placement * will hav wound care see * EUGENIO on CKD: Improving. Suspect combo of obstructive and prerenal/hypovolemic. [place] UA * Melissa initially placed, has been removed and he is currently voiding okay with improving renal function * 1.5 is baseline Hyperkalemia: * Borderline at present, should be followed periodically * Acute on chronic metabolic encephalopathy: -is now back at his baseline of very mild dementia alert today Afib/flutter: ECT with flutter, rate controlled - Continue outpt meds Deconditioning/gait instability - PT/OT, currently at [facility] he wishes to go back to his apartment, I suspect he is not realy repeat pt eval 06/29, decide then Recent R femoral neck frx s/p ORIF - Needs joanne removed Aortic aneurysm: >6cm on 08/2017 imaging. He has previously declined repair. Seen by Dr Dietrich in past. Subjective: pain improving. per pt, still needs rehab Objective: Vital Signs Temp Pulse Resp BP Pulse Ox 37.1 C 68 14 119/46 L 96 06/28/18 08:00 06/28/18 08:00 06/28/18 08:00 06/28/18 12:40 06/28/18 08:00 Laboratory Results 06/27/18 10:21 06/27/18 10:21 06/27/18 06/28/18 06/29/18 05:59 05:59 05:59 Intake Total 1550 Output Total 425 1300 Balance -425 250 PT 15.3 SEC (12.0-15.0) H 06/22/18 12:54 INR 1.19 (0.83-1.16) H 06/22/18 12:54 - Physical Exam Constitutional: no apparent distress, appears nourished Eyes: PERRL, anicteric sclera Ears, Nose, Mouth, Throat: moist mucous membranes, hearing normal Cardiovascular: regular rate and rhythym, no murmur, rub, or gallop Respiratory: no respiratory distress, no rales or rhonchi Gastrointestinal: normoactive bowel sounds, soft, non-tender abdomen Genitourinary: no bladder fullness, No melissa in urethra Skin: warm, normal color Musculoskeletal: no muscle tenderness Neurologic: AAOx3 ICD10 Worksheet Patient Problems: Problems Problem Status Onset Acute kidney injury Acute Atrial flutter Acute DVT (deep venous thrombosis) Acute Dehydration Acute Cervical strain Acute Displaced fracture of right femoral neck Acute Elevated troponin Acute Head injury Acute Hypoxemia Acute Nausea, vomiting, and diarrhea Acute Palliative care encounter Acute Pancreatitis Acute Pneumonia Acute Pulmonary embolus Acute Toe infection Acute Vomiting Acute chronic disease mgmt/transitional care Acute
[2018-06-28] MEDS: ACETAMINOPHEN 325 MG TAB PO PRN (17:35)
[2018-06-28] MEDS: SENNOSIDES/DOCUSATE SODIUM TAB PO SCH ×2 (17:35→20:07)
[2018-06-29] MEDS: APIXABAN 5 MG TAB PO SCH ×2 (09:46→19:33)
[2018-06-29] MEDS: TAMSULOSIN HCL 0.4 MG CAP PO SCH (09:46)
[2018-06-29] MEDS: amLODIPine BESYLATE 5 MG TAB PO SCH (09:46)
[2018-06-29] MEDS: SENNOSIDES/DOCUSATE SODIUM TAB PO SCH ×2 (09:49→19:34)
--- NOTE | 2018-06-29 12:36 | ASMTCMCOM ---
CM Note CM Note Notes: CM spoke to DREA Del Castillo regarding d/c POC. Pt will d/c to [facility] once medically stable. Updates sent. CM to follow. Plan: [facility] Date Signed: 06/29/2018 12:36 PM Electronically Signed By:LYDIA Loya
--- NOTE | 2018-06-29 14:36 | HOSPPROG ---
Hospitalist Progress Note Assessment/Plan: 83 yo M with recent admission for femoral neck fracture [facility] with [facility]LE DVT and other complications. RLE DVT, acute: Provoked with recent surgery. 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 Sherrell Dietrich who feels there due to his DVT and has recommended Unna boot placement * will hav wound care see * EUGENIO on CKD: Improving. Suspect combo of obstructive and prerenal/hypovolemic. [place] UA * Melissa initially placed, has been removed and he is currently voiding okay with improving renal function * 1.5 is baseline Hyperkalemia: * Borderline at present, should be followed periodically * Acute on chronic metabolic encephalopathy: -is now back at his baseline of very mild dementia alert today Afib/flutter: ECT with flutter, rate controlled - Continue outpt meds Deconditioning/gait instability - PT/OT, currently at [facility] he wishes to go back to his apartment, I suspect he is not realy repeat pt eval 06/29, decide then Recent R femoral neck frx s/p ORIF - Needs joanne removed Aortic aneurysm: >6cm on 08/2017 imaging. He has previously declined repair. Seen by Dr Dietrich in past. dispo: too weak for home, refusing [facility] will search for alternative Subjective: pt continues to rec SNF. effectively refusing to return to [facility]. willing to consider other snf Objective: Vital Signs Temp Pulse Resp BP Pulse Ox 37.2 C 69 18 128/58 H 97 06/29/18 08:00 06/29/18 08:00 06/29/18 08:00 06/29/18 08:00 06/29/18 08:00 Laboratory Results 06/27/18 10:21 06/27/18 10:21 06/28/18 06/29/18 06/30/18 05:59 05:59 05:59 Intake Total 1550 500 Output Total 1300 Balance 250 500 PT 15.3 SEC (12.0-15.0) H 06/22/18 12:54 INR 1.19 (0.83-1.16) H 06/22/18 12:54 - Physical Exam Constitutional: no apparent distress, appears nourished Eyes: PERRL, anicteric sclera Ears, Nose, Mouth, Throat: moist mucous membranes, hearing normal Cardiovascular: regular rate and rhythym, no murmur, rub, or gallop Respiratory: no respiratory distress, no rales or rhonchi Gastrointestinal: normoactive bowel sounds, soft, non-tender abdomen Genitourinary: no bladder fullness, No melissa in urethra Skin: warm Musculoskeletal: No full muscle strength ICD10 Worksheet Patient Problems: Problems Problem Status Onset Acute kidney injury Acute Atrial flutter Acute DVT (deep venous thrombosis) Acute Dehydration Acute Cervical strain Acute Displaced fracture of right femoral neck Acute Elevated troponin Acute Head injury Acute Hypoxemia Acute Nausea, vomiting, and diarrhea Acute Palliative care encounter Acute Pancreatitis Acute Pneumonia Acute Pulmonary embolus Acute Toe infection Acute Vomiting Acute chronic disease mgmt/transitional care Acute
--- NOTE | 2018-06-29 15:29 | ASMTCMCOM ---
CM Note CM Note Notes: CM met w/ pt for dispo planning. Pt is refusing to return back to [place]. Pt would like CM to speak to his friend Velia. Velia would like referral made to [facility]. Referral sent. Velia reports that if he is not accepted to [facility] he will have to return back to [place]. CM to follow. Plan: TBD Date Signed: 06/29/2018 03:28 PM Electronically Signed By:LYDIA Loya
--- NOTE | 2018-06-29 15:50 | WOCRNPDOC ---
LIZ Advanced Assessment Note - Skin Integrity Problem, Advanced Assess Right Foot Dressing Type: Adaptic Touch, Allevyn Life Dressing Description: Clean/Dry, Intact Integumentary Issue Intervention: Visualized Under Dressing Cassi Wound Tissue: Swollen, Painful/Tender Cassi Wound Swelling: Mild Wound Bed Constitution: Intact Sanguineous Blister Site Measurement - Head-to-Toe Length X Width X Depth (cm): Proximal 1.2x1.8x raised blister, irregular shape. Distal 2x1.6x raised blister. Smaller blisters laterally to larger blisters, largest is approximately 0.4x0.4xblister Skin Integrity Problem Comment: Blisters are still intact, but patient states area is quite painful. Patient was up in chair for assessment. Patient plan of care discussed with DREA Del Castillo. Patient refused spandigrips. Wound care will follow. Please reconsult if blisters open. Right Lower Leg Dressing Type: Nicole, Mepilex Other Dressing Type: foam Dressing Description: Clean/Dry, Intact Closure Description: Not Approximated Exudate Amount: Moderate Exudate Color: Reddish/Yellow Exudate Characteristic(s): Serosanguinous Integumentary Issue Intervention: Dressing Changed, Silver Gel Applied Cassi Wound Tissue: Swollen, Scaly, Hemosiderin Staining, Thin, Xerotic, Painful/ Tender Cassi Wound Swelling: Moderate Wound Bed Color: [place], Red, Yellow Wound Bed Constitution: De-roofed Sanguineous blister Site Measurement - Head-to-Toe Length X Width X Depth (cm): Proximal 4.4x3.2x0.2. distal lateral 2x1.2x0.1. distal medial 0.8x0.6x0.1. superior lateral intact bullae 1.2x1.2 Skin Integrity Problem Comment: Patient has mutiple open wounds to right lower anterior leg,and one closed bullae superior to open wounds. Wound beds cleaned with normal saline and gently patted dry. Wounds are quite painful for patient, and gentle debridement was not tolerated. 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 Discussed patient plan of care with DREA Del Castillo. Wound care is not able to place Unna boot. Patient refuses spandigrips. Wound care will follow. Right Heel Pressure Injury Dressing Type: Open to Air Skin Integrity Problem Comment: Unable to visualize wounds due to patient in chair for assessment, and refused to get back into bed. According to DREA Del Castillo, patient refuses heel boot. Left Lateral Heel Pressure Injury Dressing Type: Open to Air Skin Integrity Problem Comment: Unable to visualize wound due to patient in chair. Patient refuses heel boot.
[2018-06-30] MEDS: TAMSULOSIN HCL 0.4 MG CAP PO SCH (10:36)
[2018-06-30] MEDS: APIXABAN 5 MG TAB PO SCH ×2 (10:36→19:59)
[2018-06-30] MEDS: amLODIPine BESYLATE 5 MG TAB PO SCH (10:37)
[2018-06-30] MEDS: SENNOSIDES/DOCUSATE SODIUM TAB PO SCH ×2 (10:43→22:19)
--- NOTE | 2018-06-30 14:02 | ASMTCMCOM ---
CM Note CM Note Notes: Lucia from [facility] spoke w/ Velia. Velia is hoping that pt can transition to a LTC placement. Velia reports that [facility] has been contacted and a Medicaid alice has been initiated. Pt will most likely have to return back to [facility]. Velia spoke to pt about it this AM. Pt is agreeable. Velia is requesting d/c is post pone until tomorrow. Velia reports that pt gets confused when she isn't there. Velia will be in between 9:30AM-11AM and available during hospitalist rounding. CM to follow. Plan: [facility] Date Signed: 06/30/2018 02:01 PM Electronically Signed By:LYDIA Loya
--- NOTE | 2018-06-30 16:46 | HOSPPROG ---
Hospitalist Progress Note Assessment/Plan: 83 yo M with recent admission for femoral neck fracture [facility] with RLE DVT and other complications. RLE DVT, acute: Provoked with recent surgery. 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 Sherrell Dietrich who feels there due to his DVT and has recommended Unna boot placement * will hav wound care see * EUGENIO on CKD: Improving. Suspect combo of obstructive and prerenal/hypovolemic. [place] UA * Melissa initially placed, has been removed and he is currently voiding okay with improving renal function * 1.5 is baseline Hyperkalemia: * Borderline at present, should be followed periodically * Acute on chronic metabolic encephalopathy: -is now back at his baseline of very mild dementia alert today Afib/flutter: ECT with flutter, rate controlled - Continue outpt meds Deconditioning/gait instability - PT/OT, currently at [facility] he wishes to go back to his apartment, I suspect he is not realy repeat pt eval 06/29, decide then Recent R femoral neck frx s/p ORIF - Needs joanne removed Aortic aneurysm: >6cm on 08/2017 imaging. He has previously declined repair. Seen by Dr Dietrich in past. dispo: too weak for home, MDPOA will help w transition to SNF Subjective: ot/pt reiterate need for SNF. circular conversation w patient regarding need Objective: Vital Signs Temp Pulse Resp BP Pulse Ox 37.2 C 71 16 110/44 L 99 06/30/18 16:13 06/30/18 16:13 06/30/18 16:13 06/30/18 16:13 06/30/18 16:13 Laboratory Results 06/27/18 10:21 06/27/18 10:21 06/29/18 06/30/18 07/01/18 05:59 05:59 05:59 Intake Total 500 240 980 Output Total 350 Balance 500 240 630 PT 15.3 SEC (12.0-15.0) H 06/22/18 12:54 INR 1.19 (0.83-1.16) H 06/22/18 12:54 - Physical Exam Constitutional: no apparent distress, appears nourished Eyes: PERRL, anicteric sclera Ears, Nose, Mouth, Throat: moist mucous membranes, hearing normal Cardiovascular: regular rate and rhythym, no murmur, rub, or gallop Respiratory: no respiratory distress, no rales or rhonchi Gastrointestinal: normoactive bowel sounds, soft, non-tender abdomen Genitourinary: no bladder fullness, No melissa in urethra Skin: warm, normal color Musculoskeletal: full muscle strength Neurologic: AAOx3 ICD10 Worksheet Patient Problems: Problems Problem Status Onset Acute kidney injury Acute Atrial flutter Acute DVT (deep venous thrombosis) Acute Dehydration Acute Cervical strain Acute Displaced fracture of right femoral neck Acute Elevated troponin Acute Head injury Acute Hypoxemia Acute Nausea, vomiting, and diarrhea Acute Palliative care encounter Acute Pancreatitis Acute Pneumonia Acute Pulmonary embolus Acute Toe infection Acute Vomiting Acute chronic disease mgmt/transitional care Acute
[2018-07-01 08:24] VITALS: BP 115/63
[2018-07-01] MEDS: amLODIPine BESYLATE 5 MG TAB PO SCH (09:09)
[2018-07-01] MEDS: APIXABAN 5 MG TAB PO SCH (09:09)
[2018-07-01] MEDS: SENNOSIDES/DOCUSATE SODIUM TAB PO SCH (09:09)
[2018-07-01] MEDS: TAMSULOSIN HCL 0.4 MG CAP PO SCH (09:09)
--- NOTE | 2018-07-01 10:51 | HOSPPROG ---
Hospitalist Progress Note Assessment/Plan: 83 yo M with recent admission for femoral neck fracture now [facility] with RLE DVT and other complications. RLE DVT, acute: Provoked with recent surgery. 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 Sherrell Dietrich who feels there due to his DVT and has recommended Unna boot placement * will hae wound care see * continue wound care at SNF * not infected * EUGENIO on CKD: Improving. Suspect combo of obstructive and prerenal/hypovolemic. [place] UA * Melissa initially placed, has been removed and he is currently voiding okay with improving renal function * 1.5 is baseline Hyperkalemia: * Borderline at present, should be followed periodically * Acute on chronic metabolic encephalopathy: -is now back at his baseline of very mild dementia alert today Afib/flutter: ECT with flutter, rate controlled - Continue outpt meds Deconditioning/gait instability - PT/OT, currently at [facility] he wishes to go back to his apartment, I suspect he is not realy repeat pt eval 06/29, decide then Recent R femoral neck frx s/p ORIF - Needs joanne removed Aortic aneurysm: >6cm on 08/2017 imaging. He has previously declined repair. Seen by Dr Dietrich in past. dispo: to SNF today > 30 minutes on dc Subjective: seen medina Gunn, his MDPOA. he agrees to SNF. LE bullous wounds seen Objective: Vital Signs Temp Pulse Resp BP Pulse Ox 37.1 C 69 24 H 115/63 95 07/01/18 08:24 07/01/18 08:24 07/01/18 08:24 07/01/18 09:09 07/01/18 08:24 Laboratory Results 06/27/18 10:21 06/27/18 10:21 06/30/18 07/01/18 07/02/18 05:59 05:59 05:59 Intake Total 240 1105 Output Total 450 Balance 240 655 PT 15.3 SEC (12.0-15.0) H 06/22/18 12:54 INR 1.19 (0.83-1.16) H 06/22/18 12:54 - Physical Exam Constitutional: no apparent distress, appears nourished Eyes: PERRL, anicteric sclera Ears, Nose, Mouth, Throat: moist mucous membranes, hearing normal Cardiovascular: regular rate and rhythym, no murmur, rub, or gallop Respiratory: no respiratory distress, no rales or rhonchi Gastrointestinal: normoactive bowel sounds, soft, non-tender abdomen Genitourinary: no bladder fullness, No melissa in urethra Skin: warm, other (RLE wounds w clean base w granulation tissue, no purulence or odor. chronic venouis stasis changes b/l) Musculoskeletal: No full muscle strength Neurologic: AAOx3 ICD10 Worksheet Patient Problems: Problems Problem Status Onset Acute kidney injury Acute Atrial flutter Acute DVT (deep venous thrombosis) Acute Dehydration Acute Cervical strain Acute Displaced fracture of right femoral neck Acute Elevated troponin Acute Head injury Acute Hypoxemia Acute Nausea, vomiting, and diarrhea Acute Palliative care encounter Acute Pancreatitis Acute Pneumonia Acute Pulmonary embolus Acute Toe infection Acute Vomiting Acute chronic disease mgmt/transitional care Acute
--- NOTE | 2018-07-01 10:59 | SOAPPROG ---
SOAP Progress Note Assessment/Plan: Assessment: 83 y/o M with multiple comorbidities admitted for LE DVTs and venous stasis ulcers on R heaton. S: Denies pain. O: Alert Afebrile No increased WOB RLE: dressings taken down. Wounds on heaton appear superficial and clean with no surrounding erythema or induration. They are granulating. R foot bullae remain stable. Plan: Unna boot application to R heaton. Pt agreeable to plan. 07/01/18 10:56 Objective: Vital Signs Temp Pulse Resp BP Pulse Ox 37.1 C 69 24 H 115/63 95 07/01/18 08:24 07/01/18 08:24 07/01/18 08:24 07/01/18 09:09 07/01/18 08:24 Laboratory Results 06/27/18 10:21 06/27/18 10:21 06/30/18 07/01/18 07/02/18 05:59 05:59 05:59 Intake Total 240 1105 Output Total 450 Balance 240 655 PT 15.3 SEC (12.0-15.0) H 06/22/18 12:54 INR 1.19 (0.83-1.16) H 06/22/18 12:54 ICD10 Worksheet Patient Problems: Problems Problem Status Onset Acute kidney injury Acute Atrial flutter Acute DVT (deep venous thrombosis) Acute Dehydration Acute Cervical strain Acute Displaced fracture of right femoral neck Acute Elevated troponin Acute Head injury Acute Hypoxemia Acute Nausea, vomiting, and diarrhea Acute Palliative care encounter Acute Pancreatitis Acute Pneumonia Acute Pulmonary embolus Acute Toe infection Acute Vomiting Acute chronic disease mgmt/transitional care Acute
--- NOTE | 2018-07-01 11:14 | GDS ---
DISCHARGE DIAGNOSES: 1. Right deep vein thrombosis. 2. History of femoral neck fracture with open reduction, internal fixation on June 08. 3. History of atrial flutter. 4. Large aortic aneurysm abdominal aortic aneurysm for which he has declined intervention. 5. Diet-controlled type 2 diabetes. 6. Previous remote history of venous thromboembolism. 7. Lower extremity bullous wounds, felt secondary to venous insufficiency. 8. Paroxysmal atrial fibrillation. 9. Thrombocytopenia. 10. Chronic kidney disease, baseline, 1.5. 11. Acute kidney injury. Please see admission history and physical by Dr. Lesli Cedeno. The patient presented with right l ower extremity swelling, bullous wounds, diagnosed with DVT, started on anticoagulation. Creatinine on presentation was elevated at 2.6, acute kidney injury, baseline 1.5. He was initiated on apixaban and continued on that. His DVT prophylaxis discontinued. Patient was seen regularly by Physical therapy, and he remained weak and felt that ongoing physical t herapy and inpatient rehabilitation at SNF was indicated. He declined this repeatedly, but ultimatel y his medical [id number], Velia, came in, and was able to discuss this with me, recognized the benefit from this and is discharged back to [facility] for some rehabilitation with the hopes to ret urn home and remain functionally independent. The patient has been seen by Wound care. Wound care d ressing recommendations are in the discharge paperwork. /[id number]/MODL
--- NOTE | 2018-07-01 13:13 | PDIAF ---
- Diagnosis Diagnosis: dvt Code Status: Limited Resuscitation - Medication Management Discharge Medications: electronically signed and located in the Home Medication List. - Orders Services needed: Registered Nurse, Certified Switch Foreman, Master Spring Salvage Worker , Physical Therapy, Occupational Therapy, Speech Language Pathologist Isolation Type: None Additional Instructions: Dressing change order for Right lower anterior leg open wounds: to be done every 2 days and as needed. 1) cleanse w/ normal saline and gauze. 2) Apply silvasorb Gel to open areas. 3) cover w/ Mepilex 4x4 or other border foam and secure w/ Kerlix and netting Dressing change for intact blisters every 2 days: 1) Place a piece of adaptic touch over blisters. 2) Cover with allevyn life or bordered foam dressing, or other non-adherent dressing such as telfa or curad secured with tape. 3) If blisters open, switch to dressing change as listed above. Keep Spandigrip or Tubigrip D on right leg from ball of foot to 1 inch below knee from before patient gets out of bed in am until back in bed in pm. May remove at night. Please follow up within 3- 4 weeks of discharge with [facility] if you continue to have issues with your wounds: You may reach them at [phone] for an appointment and continued management of your wounds. Please call them [facility] to schedule your appointment as they fill up quickly. If before that time you have any issues please follow up with your PCP. Shelly Chaparro furniture finisher Team wbat anterior hip precautions f/u at [facility] - Follow Up Care Current Providers and Referrals: Mk Blancas MD [Medical Doctor] - CELE MORENO [Primary Care Provider] - As per Instructions
--- NOTE | 2018-07-01 13:26 | ASMTLACE ---
LACE Length of stay for Answers: 7-13 days current admission Acuity / Level of Answers: Yes Care: Did the patient have an inpatient admission? Comorbidities - select Answers: Diabetes (uncontrolled or all that apply controlled) History of falls Peripheral vascular disease Other Notes: HTN; Spinal stenosis; AFib # of Emergency department Answers: 1-2 visits in the last 6 months Score: 15 Date Signed: 07/01/2018 01:25 PM Electronically Signed By:LYDIA Loya
--- NOTE | 2018-07-01 13:29 | ASMTDCNOTE ---
Case Management Discharge Discharge Order Complete? Answers: Yes Patient to Obtain Answers: Other Notes: [facility] Medications Transportation Arranged Answers: Other Notes: [facility] W/C Transport Transport will Pick (Date 07/01/2018 01:30 PM & Time) EMTALA Complete Answers: No Case Management Transport Answers: No Form Complete Faxed Final Orders Answers: Yes Agency/Facility Transfer Answers: Yes Report Printed & Faxed to Receiving Agency Family Notified Answers: Yes Discharge Comments Notes: Pts case discussed w/ Dr. Stuart. Pt is being discharged today to [facility]. JACOB Gunn was available today to speak w/ hospitalist. DC orders sent. CM provided DREA Carreon w/ phone number to give report. CM available for changes. Plan: [facility] Date Signed: 07/01/2018 01:28 PM Electronically Signed By:LYDIA Loya
--- NOTE | 2018-07-01 13:49 | ASDISCHSUM ---
Discharge Information Plan Status:SNF Medically Cleared to Leave:06/30/2018 Discharge Date:06/30/2018 CM D/C Disposition: ADT D/C Disposition: Projected Discharge Date:07/01/2018 11:00 AM Transportation at D/C: Discharge Delay Reason: Follow-Up Date:07/01/2018 11:00 AM Discharge Slot: Final Diagnosis: Placement Information Referral Type:*Fpc/SNF Referral ID:[id number] Provider Name:Melissa Werner [place] Address 1:[address] Address 2: City:[place] Selection Factors: State:[place] Patient Contact Information Contact Name:BIANCA Relationship:Friend Address: Work Phone: [facility]:[place] Alternate Phone: [facility] Code:[place] Email: Financial Information Financial Class:Medicare Primary Plan Desc:MEDICARE INPATIENT Primary Plan Number:[id number] Secondary Plan Desc: Secondary Plan Number: Assessment Information LACE LACE Length of stay for Answers: 7-13 days current admission Acuity / Level of Answers: Yes Care: Did the patient have an inpatient admission? Comorbidities - select Answers: Diabetes (uncontrolled or all that apply controlled) History of falls Peripheral vascular disease Other Notes: HTN; Spinal stenosis; AFib # of Emergency department Answers: 1-2 visits in the last 6 months Score: 15 Date Signed: 07/01/2018 01:25 PM Electronically Signed By:LYDIA Loya [facility] Progress Note CM John CM Note Notes: Pt is a 83 y/o man admitted for elevated creatinine. Pt had a mechanical fall and encephalopathy. Pt is a poor historian. Pts MDPOA is Velia Fragoso, a close friend who lives nearby. Pt is currently getting rehab at [facility]. Updates sent to [facility]. CM spoke to Ria with [facility] and she reports that pt is more than welcome to return. OT and wound care have been ordered. CM to follow. Plan: [facility] Date Signed: 06/23/2018 11:57 AM Electronically Signed By:LYDIA Loya [facility] Progress Note CM Note CM Note Notes: Pt rehabbing at [facility], will return there when medically stable. Updates faxed today. DC Plan: [facility] Date Signed: 06/26/2018 02:39 PM Electronically Signed By:Mary Cobb RN [facility] CM Progress Note CM Note CM Note Notes: CM spoke to DREA Del Castillo regarding d/c POC. Pt will d/c to [facility] once medically stable. Updates sent. CM to follow. Plan: [facility] Date Signed: 06/29/2018 12:36 PM Electronically Signed By:LYDIA Loya [facility] Progress Note CM Note CM Note Notes: CM met w/ pt for dispo planning. Pt is refusing to return back to [facility]. Pt would like CM to speak to his friend Velia. Velia would like referral made to [facility]. Referral sent. Velia reports that if he is not accepted to [facility] he will have to return back to [facility]. CM to follow. Plan: TBD Date Signed: 06/29/2018 03:28 PM Electronically Signed By:LYDIA Loya [facility] Progress Note CM Note CM Note Notes: Lucia from [facility] spoke w/ Velia. Velia is hoping that pt can transition to a LTC placement. Velia reports that [facility] has been contacted and a Medicaid alice has been initiated. Pt will most likely have to return back to [facility]. Velia spoke to pt about it this AM. Pt is agreeable. Velia is requesting d/c is post pone until tomorrow. Velia reports that pt gets confused when she isn't there. Velia will be in between 9:30AM-11AM and available during hospitalist rounding. CM to follow. Plan: [facility] Date Signed: 06/30/2018 02:01 PM Electronically Signed By:LYDIA Loya Case Management Discharge Plan Note Case Management Discharge Discharge Order Complete? Answers: Yes Patient to Obtain Answers: Other Notes: [facility] Medications Transportation Arranged Answers: Other Notes: [facility] W/C Transport Transport will Pick (Date 07/01/2018 01:30 PM & Time) EMTALA Complete Answers: No Case Management Transport Answers: No Form Complete Faxed Final Orders Answers: Yes Agency/Facility Transfer Answers: Yes Report Printed & Faxed to Receiving Agency Family Notified Answers: Yes Discharge Comments Notes: Pts case discussed w/ Dr. Stuart. Pt is being discharged today to [facility]. JACOB Gunn was available today to speak w/ hospitalist. DC orders sent. CM provided DREA Carreon w/ phone number to give report. CM available for changes. Plan: [facility] Date Signed: 07/01/2018 01:28 PM Electronically Signed By:LYDIA Loya Intervention Information Intervention Type:*STANLEY-Signed Date of Service:06/23/2018 02:11 PM Patient Type:Observation Staff Member:Antionette Lomeli Hours: Discipline: Severity: Comment: Intervention Type:IM-Refused Date of Service:06/26/2018 03:37 PM Patient Type:Inpatient Staff Member:Antionette Lomeli Hours: Discipline: Severity: Comment:Patient refused to sign the Medicare f orm. Intervention Type:*IM-Signed Date of Service:07/01/2018 11:40 AM Patient Type:Inpatient Staff Member:Edil Rivera Hours: Discipline: Severity: Comment:
[2018-07-01] MEDS ORDERED: APIXABAN 5 MG TAB PO SCH (21:00)
== END 2018-07-01 14:14 | DRG 299 ==
LOC: EDUNIT# → F3E 15:23 → OBSVTOIN 06-23 16:09
PROVIDERS: ADMIT Internal Medicine; ATTEND Internal Medicine
DX: I82.431 Acute embolism and thrombosis of right popliteal vein (principal); N17.9 Acute kidney failure, unspecified; G93.41 Metabolic encephalopathy; I12.9 Hypertensive chronic kidney disease with stage 1 through stage 4 chronic kidney disease, or unspecified chronic kidney disease; E11.22 Type 2 diabetes mellitus with diabetic chronic kidney disease; N18.9 Chronic kidney disease, unspecified; E87.5 Hyperkalemia; L89.610 Pressure ulcer of right heel, unstageable; I83.018 Varicose veins of right lower extremity with ulcer other part of lower leg; S72.001D Fracture of unspecified part of neck of right femur, subsequent encounter for closed fracture with routine healing; L89.620 Pressure ulcer of left heel, unstageable; I48.0 Paroxysmal atrial fibrillation; I48.92 Unspecified atrial flutter; I71.4 Abdominal aortic aneurysm, without rupture; N40.1 Benign prostatic hyperplasia with lower urinary tract symptoms; R33.8 Other retention of urine; D64.9 Anemia, unspecified; Z96.642 Presence of left artificial hip joint; Z86.73 Personal history of transient ischemic attack (TIA), and cerebral infarction without residual deficits; Z91.81 History of falling; E11.51 Type 2 diabetes mellitus with diabetic peripheral angiopathy without gangrene; Z79.01 Long term (current) use of anticoagulants; F17.210 Nicotine dependence, cigarettes, uncomplicated
CPT/HCPCS: 97116-GP; 97162-GP; 97166-GO; 97530-GP; 97535-GO; G0378; G8978-GP-CL; G8979-GP-CJ; G8987-GO-CL; G8988-GO-CK; J0690; J1630; J1650

== ENCOUNTER 2018-07-12 22:59 | Inpatient (IN) | payer OTHER ==
[2018-07-12 23:21] LABS: PLATELET COUNT 178 10^3/uL (150-400)
[2018-07-12] MEDS ORDERED: ACETAMINOPHEN 500 MG TAB PO ONE (23:29)
[2018-07-12] MEDS ORDERED: NS 1,000 ML IV ONE ×2 (23:29)
--- NOTE | 2018-07-12 23:30 | EDPHY ---
H & P Stated Complaint: fever Time Seen by Provider: 07/12/18 23:27 HPI/ROS: HPI The patient presents with fever as high as 103.9 F which has been present for the last 1 day. This is associated with hypoxia with room air sats of 83%. He is brought in by ambulance from [place] where he is currently residing after suffering from a hip fracture status post treatment of this in May complicated by a DVT of his right lower extremity. He was discharged from the hospital on July 01.. REVIEW OF SYSTEMS 10 systems were reviewed and negative with the exception of the elements mentioned in the history of present illness. PMHx: History of femoral neck fracture status post ORIF in May, DVT right lower extremity, paroxysmal atrial fibrillation, type 2 diabetes, lower extremity wounds Soc Hx: Currently residing at [place] PHYSICAL General Appearance: Tired appearing and uncomfortable Eyes: Pupils equal and round no pallor or injection ENT, Mouth: Mucous membranes dry Respiratory: Breathing comfortably on 2 L nasal cannula without any retractions , there are decreased breath sounds at the left lung base Cardiovascular: Regular rate and rhythm Gastrointestinal: Abdomen is soft and non-tender, no masses, bowel sounds normal Neurological: A&O, moves all extremities Skin: Warm and dry, there is edema to the dorsum of his right foot with overlying hypergranulation tissue, there is tenderness on the dorsum of his foot , he has a heel ulcer with dressing in place with no surrounding erythema, there is no increased warmth throughout his legs Musculoskeletal: Neck is supple non tender Extremities: symmetrical, full range of motion Psychiatric: Patient is oriented X 3, there is no agitation Source: Patient, EMS, Old records Exam Limitations: Clinical condition - Personal History Current Tetanus/Diphtheria Vaccine: Yes Tetanus Vaccine Date: last 10 years - Medical/Surgical History Hx Asthma: No Hx Chronic Respiratory Disease: No Hx Diabetes: Yes Hx Cardiac Disease: Yes Hx Renal Disease: No Hx Cirrhosis: No Hx Alcoholism: No Hx HIV/AIDS: No Hx Splenectomy or Spleen Trauma: No Other PMH: HTN, afib/aflutter, dm2, DVT, AAA 5.2x5cm on 02/13/16, PVD, spinal stenosis. R foot drop. repeated falls, CHI, vertigo, osteomyolitis, Psoriasis. - Social History Smoking Status: Former smoker Constitutional: Initial Vital Signs Temperature (C) 38.2 C 07/12/18 23:05 Heart Rate 77 07/12/18 23:05 Respiratory Rate 18 07/12/18 23:05 Blood Pressure 116/52 L 07/12/18 23:05 O2 Sat (%) 96 07/12/18 23:05 O2 Delivery Mode Nasal Cannula O2 (L/minute) 2 Allergies/Adverse Reactions: Tetracyclines Allergy (Intermediate, Verified 07/12/18 23:10) Vomiting azithromycin Allergy (Unknown, Verified 07/12/18 23:10) Itching nitrofurantoin [From Macrobid] Allergy (Unknown, Verified 07/12/18 23:10) nitrofurantoin macrocrystalline [From Macrobid] Allergy (Unknown, Verified 07/12 23:10) Penicillins Allergy (Unknown, Verified 07/12/18 23:10) Sulfa (Sulfonamide Antibiotics) Allergy (Unknown, Verified 07/12/18 23:10) Home Medications: Medication Instructions Recorded amLODIPine BESYLATE [Norvasc 5 mg 5 mg PO DAILY #30 tab 08/04/16 (*)] Acetaminophen [Tylenol ES 500 mg 1,000 mg PO Q8HRS tab 06/15/18 (*)] traMADol [Ultram 50 mg (*)] 50 mg PO Q6HRS PRN tab 06/15/18 Apixaban [Eliquis] 5 mg PO BID tab 07/01/18 Polyethylene Glycol 3350 [Miralax 17 gm PO DAILY PRN pkt 07/01/18 17 gm (*)] Sennosides/Docusate Sodium 1 - 2 tab PO BID tab 07/01/18 [Senokot-S] Tamsulosin HCl [Flomax 0.4 MG (*)] 0.4 mg PO DAILY cap 07/01/18 Medical Decision Making - Diagnostics Imaging Results: Imaging Impressions Chest X-Ray 07/12/18 23:03 Impression: 1. Borderline-cardiomegaly with mild pulmonary venous congestion. 2. Suspect mild consolidation at the lateral left lung base. Differential Diagnosis: 83-year-old male brought in by ambulance from [place] with 1 day of fever and hypoxia, recent past medical history of right leg DVT, hip fracture status post ORIF, also with type 2 diabetes and history of paroxysmal atrial fibrillation. In the emergency department, I met the paramedics at the bedside to obtain their report. Patient underwent evaluation for sepsis given his fever. He received 2 L of fluid and Levaquin for presumed pneumonia based on chest x-ray. Other labs were unremarkable including lactate. Blood culture is pending. I discussed his diagnosis and treatment plan with the patient's DPOA at the bedside. Given his hypoxia, he will be admitted to the hospitalist service and I have consulted with Dr. Winslow. Differential diagnoses considered include sepsis, pneumonia, UTI, cellulitis, postoperative hip infection. - Data Points Laboratory Results: Laboratory Results 07/12/18 23:10 07/12/18 23:10 07/12/18 07/12/18 07/12/18 23:44 23:10 23:10 WBC RBC Hgb Hct MCV MCH MCHC RDW Plt Count MPV Neut % (Auto) Lymph % (Auto) Alfalfa % (Auto) Eos % (Auto) Baso % (Auto) Nucleat RBC Rel Count Absolute Neuts (auto) Absolute Lymphs (auto) Absolute Monos (auto) Absolute Eos (auto) Absolute Basos (auto) Absolute Nucleated RBC Immature Gran % Immature Gran # RBC/WBC/PLT Morphology Platelet Estimate VBG Lactic Acid Sodium 140 mEq/L mEq/L (135-145) Potassium 4.8 mEq/L mEq/L (3.3-5.0) Chloride 108 mEq/L mEq/L (97-110) Carbon Dioxide 21 mEq/l L mEq/l (22-31) Anion Gap 11 mEq/L mEq/L (6-14) BUN 32 mg/dL H mg/dL (7-23) Creatinine 1.3 mg/dL mg/dL (0.7-1.3) Estimated GFR 53 Glucose 106 mg/dL H mg/dL (70-100) Calcium 8.3 mg/dL L mg/dL (8.5-10.4) Urine Color YELLOW Urine Appearance CLEAR Urine pH 5.0 (5.0-7.5) Ur Specific [place] 1.014 (1.002-1.030) Urine Protein NEGATIVE (NEGATIVE) Urine Ketones NEGATIVE (NEGATIVE) Urine Blood NEGATIVE (NEGATIVE) Urine Nitrate NEGATIVE (NEGATIVE) Urine Bilirubin NEGATIVE (NEGATIVE) Urine Urobilinogen NEGATIVE EU EU (0.2-1.0) Ur Leukocyte Esterase NEGATIVE (NEGATIVE) Urine Glucose NEGATIVE (NEGATIVE) Nasal Influenza A PCR NEGATIVE FOR FLU A (NEGATIVE) Nasal Influenza B PCR NEGATIVE FOR FLU B (NEGATIVE) 07/12/18 07/12/18 23:10 23:10 WBC 9.32 10^3/uL 10^3/uL (3.80-9.50) RBC 3.12 10^6/uL L 10^6/uL (4.40-6.38) Hgb 8.4 g/dL L g/dL (13.7-17.5) Hct 27.7 % L % (40.0-51.0) MCV 88.8 fL fL (81.5-99.8) MCH 26.9 pg L pg (27.9-34.1) MCHC 30.3 g/dL L g/dL (32.4-36.7) RDW 15.2 % % (11.5-15.2) Plt Count 178 10^3/uL 10^3/uL (150-400) MPV 10.0 fL fL (8.7-11.7) Neut % (Auto) 91.2 % H % (39.3-74.2) Lymph % (Auto) 4.5 % L % (15.0-45.0) Alfalfa % (Auto) 3.3 % L % (4.5-13.0) Eos % (Auto) 0.0 % L % (0.6-7.6) Baso % (Auto) 0.1 % L % (0.3-1.7) Nucleat RBC Rel Count 0.0 % % (0.0-0.2) Absolute Neuts (auto) 8.50 10^3/uL H 10^3/uL (1.70-6.50) Absolute Lymphs (auto) 0.42 10^3/uL L 10^3/uL (1.00-3.00) Absolute Monos (auto) 0.31 10^3/uL 10^3/uL (0.30-0.80) Absolute Eos (auto) 0.00 10^3/uL L 10^3/uL (0.03-0.40) Absolute Basos (auto) 0.01 10^3/uL L 10^3/uL (0.02-0.10) Absolute Nucleated RBC 0.00 10^3/uL 10^3/uL (0-0.01) Immature Gran % 0.9 % % (0.0-1.1) Immature Gran # 0.08 10^3/uL 10^3/uL (0.00-0.10) RBC/WBC/PLT Morphology TNP Platelet Estimate TNP VBG Lactic Acid 1.6 mmol/L mmol/L (0.7-2.1) Sodium Potassium Chloride Carbon Dioxide Anion Gap BUN Creatinine Estimated GFR Glucose Calcium Urine Color Urine Appearance Urine pH Ur Specific [place] Urine Protein Urine Ketones Urine Blood Urine Nitrate Urine Bilirubin Urine Urobilinogen Ur Leukocyte Esterase Urine Glucose Nasal Influenza A PCR Nasal Influenza B PCR Medications Given: Levofloxacin/Dextrose (Levaquin 750 Mg (Premix)) 150 mls @ 100 mls/hr IV EDNOW ONE PRN Reason: Protocol Stop: 07/13/18 01:46 Last Admin: 07/13/18 00:24 Dose: 150 mls Discontinued Medications Acetaminophen (Tylenol) 1,000 mg PO EDNOW ONE Stop: 07/12/18 23:30 Last Admin: 07/12/18 23:54 Dose: 1,000 mg Sodium Chloride (Ns) 1,000 mls @ 0 mls/hr IV EDNOW ONE; Wide Open PRN Reason: Protocol Stop: 07/12/18 23:30 Last Admin: 07/12/18 23:57 Dose: 1,000 mls Sodium Chloride (Ns) 1,000 mls @ 0 mls/hr IV EDNOW ONE; Wide Open PRN Reason: Protocol Stop: 07/12/18 23:30 Last Admin: 07/12/18 23:57 Dose: 1,000 mls Ceftriaxone Sodium/Dextrose (Rocephin 1 Gm (Premix)) 50 mls @ 100 mls/hr IV EDNOW ONE PRN Reason: Protocol Stop: 07/13/18 00:44 Last Admin: 07/13/18 00:31 Dose: Not Given Departure - Departure Disposition: [facility] Acute Clinical Impression: Hypoxia Fever Qualifiers: Fever type: unspecified Qualified Code(s): R50.9 - Fever, unspecified Pneumonia Qualifiers: Pneumonia type: due to unspecified organism Laterality: left Lung location: lower lobe of lung Qualified Code(s): J18.1 - Lobar pneumonia, unspecified organism DVT (deep venous thrombosis) Qualifiers: DVT location: lower extremity Affected thrombotic vein of extremity: unspecified vein of extremity Chronicity: acute Laterality: right Qualified Code (s): I82.401 - Acute embolism and thrombosis of unspecified deep veins of right lower extremity Condition: Fair
[2018-07-13] MEDS ORDERED: cefTRIAXone 1 GM/DEXTROSE 1 GM/50 ML BAG IV ONE (00:17)
[2018-07-13] MEDS ORDERED: ONDANSETRON DISINTEGRATING 4 MG TAB PO PRN (00:54)
[2018-07-13] MEDS ORDERED: ONDANSETRON 4 MG/2 ML VIAL IVP PRN (00:54)
[2018-07-13] MEDS ORDERED: NS 1,000 ML IV SCH (01:00)
[2018-07-13 04:51] LABS: PLATELET COUNT 147 10^3/uL (150-400)
--- NOTE | 2018-07-13 07:18 | GHP ---
DATE OF ADMISSION: 07/13/2018 SOURCE: Patient is unable to provide significant amount of history. His good friend and MDPOA, Velia Fragoso at bedside provides history as well as review of EMR. Patient is well known to the hospitalist service with recent discharge . EMR was reviewed and case discussed with ED provider. CHIEF COMPLAINT: Fever, hypoxia. HISTORY OF PRESENT ILLNESS: This is an 83-year-old gentleman with a past medical history significant for paroxysmal atrial fibrillation, flutter, hypertension, diabetes 2, PVD, large aortic aneurysm 6 cm, recent history of right femoral ORIF in May of this year with a subsequent readmission on 01/2018 with findings of DVT on that same side and dehydration. Patient had been discharged to [facility], where he appeared to be recovering fairly well. Per the patient's POA, he was ambulating to lunch earlier in the day. He did not appear to feel quite himself this evening. He was noted to be hypoxic into the 80s with a fever up to 104 at his facility. There is no report of cough or subjective shortness of breath. No chest pain. Again, patient at time of my interview, is rolled over on his left side and refuses to cooperate with staff. REVIEW OF SYSTEMS: Unable to obtain due to patient's refusal. ALLERGIES: Multiple including tetracycline, azithromycin, nitrofurantoin, penicillin, sulfa. HOME MEDICATION: List as per EMR: Tramadol 50 mg q.6 hours p.r.n., amlodipine 5 mg p.o. daily, tamsulosin 0.4 mg p.o. daily, Senokot 1 to 2 tabs p.o. b.i.d., MiraLAX 17 g p.o. daily p.r.n., Eliquis 5 mg p.o. b.i.d., acetaminophen 1000 mg p.o. q.8h hours p.r.n. PAST MEDICAL HISTORY: Significant for recent DVT in the right lower extremity, recent right femoral neck fracture with ORIF 06/08, hyperkalemia, episode of encephalopathy during his previous hospital stay, paroxysmal atrial fibrillation /flutter, thrombocytopenia, hypertension, diabetes diet-controlled, peripheral vascular disease, aortic aneurysm greater than 6 cm without plans for intervention as patient declined, history of falls, spinal stenosis with right footdrop, history of vertigo, history osteomyelitis, psoriasis, BPH with history urinary retention. History remotely of PE/DVT not previously anticoagulated until his last hospitalization. Cataracts with blindness, anxiety. PAST SURGICAL HISTORY: Right hip ORIF, appendectomy, left hip arthroplasty after fall and fracture 09/06/2017. FAMILY HISTORY: Positive for stroke in Mother. SOCIAL HISTORY: Patient is a former smoker. He is a . He currently lives alone. He has one daughter in [place]. Patient's MDPOA is Velia Fragoso , a good friend and neighbor. CODE STATUS: Limited. No compressions or intubation in light of patient's history of large aortic aneurysm and patient's overall condition per Velia. PHYSICAL EXAMINATION: VITAL SIGNS: Upon arrival to the emergency department; blood pressure 116/52, heart rate 77, respiratory rate 18, O2 saturation 96% on 2 L by nasal cannula, temperature 38.2. Vitals available at time of interview; blood pressure 114/62, heart rate 69, respiratory rate 16, O2 saturation 94% on 1 L by nasal cannula, 37.3. GENERAL: No acute distress. The patient is elderly frail gentleman lying on his right side hanging onto the side rail with his eyes closed. He is awake and answers questions. The POA at bedside. HEAD : Normocephalic, atraumatic. Eyes: The patient refuses to open his eyes for exam. Glimpse of sclerae does not indicate any conjunctival injection and no drainage. He does wear glasses. ENT: Mucous membranes appear quite dry. thrush present. Chapped lips. NECK: Supple. Trachea midline. CV: Regular rate and rhythm. Difficult exam due to patient's leaning on his left side. Unable to assess murmur. RESPIRATORY: Unlabored breathing. Diminished bibasilarly, greater on the left than the right. No wheezes, rales or rhonchi. ABDOMEN: Obese, soft, nontender to palpation. No rebound, guarding, or masses appreciated. : No suprapubic tenderness to palpation. No catheter in place. MUSCULOSKELETAL: Patient with generalized weakness deconditioning. He is able to move all extremities, but resists any sort of assistance or manipulation. NEURO: Unable to complete full exam. No facial drooping. He does move all extremities. The patient uncooperative for interview and so unable to assess his current orientation, but he is aware he is in the hospital and is frustrated, stating that he does not want any more treatment. RN explains that patient has just recently had blood draw, imaging and is quite fatigued. SKIN: Patient with multiple wounds to his lower extremities. Due to patient's lack of cooperation unable to fully assess the patient's heels and/ or buttocks. Per patient's EPOA, the right heel is quite tender. LABORATORY STUDIES: WBC is 9.32, H and H is 8.4 and 27.7, MCV of 88.8, platelet count is 178, neutrophil percent 91.2. No bands. Lactic acid 1.6. Sodium 140, potassium 4.8, chloride 108, CO2 of 21, anion gap 11, BUN 32, creatinine is 1.3 GFR 53, glucose 106, calcium is 8.3. UA specific gravity of 1.014 with a pH of 5.0, otherwise negative. Nasal influenza A/B negative. Blood cultures x2 pending. Urine culture is pending. Chest x-ray image report reviewed. Borderline cardiomegaly with mild pulmonary venous congestion. Suspect mild consolidation lateral left lung base. Mild peribronchiolar thickening. Right hip x-ray, 1 view: Image reviewed, report is still pending. Prosthesis appeared to be in place. ASSESSMENT AND PLAN: 83-year-old gentleman with multiple chronic medical issues with more recently right femoral neck fracture repaired in May and subsequent rehospitalization for dehydration and deep vein thrombosis in the right extremity, now presents to the emergency department with hypoxia and fever. ASSESSMENT AND PLAN: 1. Left lower lobe pneumonia. The patient has been started on Levaquin. No previously known history of multidrug resistant organisms. He has allergy to azithromycin. The patient without any complaints of symptoms or subjective shortness of breath. No coughing. He has had some hypoxia responsive to supplemental oxygen. Incentive spirometry has been ordered. After discussion with patient's EPOA, sounds like he mobilizes once or twice per day only. PT, OT will be consulted. Patient does not meet sepsis criteria. His lactate is normal. His blood cultures are pending. Antibiotics as noted above. 2. Hypoxia without acute respiratory failure. Supplemental oxygen as noted above. We will continue with incentive spirometer, try to titrate oxygen needs down. Monitor and plan for room air challenge before discharge. 3. Dehydration. The patient has been given some IV fluid 500 cc in the emergency department. We will continue with IV supplementation as he is not likely to orally hydrate at this time given his current status. We will monitor for fluid overload. Patient without any previous history of congestive heart failure. 4. Anemia. Compared to last hospital stay appears approximately stable. No evidence of active bleeding at this time. Continue with Eliquis when med rec is available. 5. Chronic kidney disease stage 3. Patient appears to be at baseline creatinine of 1.2 to today is 1.3. IV fluid hydration as noted above. 6. Pressure wounds. Wound Care will be consulted. Patient reported to have wounds on his bottom and his lower extremities including both heels. The EPOA reports that the patient has previously refused the booties, but will have them ordered and continue as tolerated by the patient. 7. Thrush - nystatin swish and spit. CHRONIC MEDICAL ISSUES: 1. Benign essential hypertension. Patient's blood pressure is low normal. Goal will be BP less than 140 with history of abdominal aortic aneurysm greater than 6 cm. 2. Peripheral vascular disease. The patient is on Eliquis as noted above. He is not on any statin therapy. 3. Spinal stenosis with history of right footdrop. PT OT. Pain currently controlled. The patient does not want to lay on his back. 4. Benign prostatic hypertrophy with history of urinary retention. Currently patient is voiding. Monitor for any signs of retention. 5. History of cataracts and blindness. Bed alarm and PT/OT as noted above. 6. Paroxysmal atrial fibrillation, flutter. Patient's heart rate in the 60s, appears to be regular at this point. Patient is not currently on any rate control and so will monitor with vitals as patient's control does not require any monitors currently. 7. Fluids, electrolytes, and nutrition. Status post 500 cc bolus in the ED. Continue with gentle IV fluid hydration overnight. Monitor fluid status closely. Monitor electrolytes and replace if needed. Advance diet as tolerated. 8. Prophylaxis on Eliquis. Patient is not a candidate for SCDs given his lower extremity wounds and his PVD. 9. Cor status is limited. No compressions and no intubation. DISPOSITION: Patient admitted to inpatient status given the severity of his debility at this point, and his hypoxia. Anticipate that he will require greater than 2 midnight stay before a transfer back to [facility]. /[id number]/MODL MTDD
--- NOTE | 2018-07-13 09:21 | PDMN ---
Medical Necessity Medical necessity: [facility] M282 Pneumonia: 83 yo w/ LLL pneumonia, hypoxia, dehydration, anemia, chronic kidney disease stage III, pressure wounds and thrush. IV antibx started, IVF started, O2 administered, monitor labs, Bld and urine cx pending, PT/OT and wound care consults ordered. Pt admitted to IP status given the severity of his debility and hypoxia. Anticipate >2MN hospital stay. hx sig for recent DVT RLE, recent R femoral neck fx w/ ORIF , hyperkalemia, encephalopathy durin previous hospital stay, aroxysmal afib/ flutter, thrombocytopenia, HTN, DM, PVD, aortic aneurysm>6cm, hx of falls, spinal stenosis w/ R foot drop, vertigo, osteomyelitis, PE.
[2018-07-13] MEDS ORDERED: IPRATROPIUM/ALBUTEROL 3 ML DEYVIAL IH PRN (10:49)
[2018-07-13] MEDS ORDERED: LORazepam 0.5 MG TAB PO ONE (10:49)
--- NOTE | 2018-07-13 11:55 | ASMTCMCOM ---
CM Note CM Note Notes: Pt known to [facility] in from [facility] for pneumonia. Pt last d/c to [facility] 07/01/18 where he is for rehab. Pt EMELIAKYELA is friend Velia Fragoso. Pt was SBA and now requires room with lift. Pt may need Medicaid LTC, which [facility] will have to help with. Pt applied for Medicaid his May admission at [facility]. PT/OT ordered. Updates sent to [facility]. Pt to return to [facility] when medically stable. D/c plan of care: Return to [facility] Date Signed: 07/13/2018 11:54 AM Electronically Signed By:YANNICK Gandhi
[2018-07-13] MEDS: NYSTATIN SUSP 500000 UNIT/5 ML UD LIQ PO SCH ×3 (12:08→21:53)
--- NOTE | 2018-07-13 13:44 | WOCRNPDOC ---
LIZ Advanced Assessment Note - Skin Integrity Problem, Advanced Assess Right Anterior Lower Leg Dressing Type: Kerlix Dressing Description: Clean/Dry, Intact Exudate Characteristic(s): Dried Integumentary Issue Intervention: Visualized Under Dressing Cassi Wound Tissue: Swollen, Painful/Tender Wound Bed Color: [place], Yellow Wound Bed Constitution: Adhered Slough Site Measurement - Head-to-Toe Length X Width X Depth (cm): superior 1.5x1.3x dried exudate. proximal 3.4x3.2x dried exudate. distal lateral 2x1.2. distal medial 0.8x0.6 Skin Integrity Problem Comment: Patient was up in recliner chair. Patient refused assessment of heels, which are known to have pressure injuries in previous admission. Wounds to right anterior lower leg are painful to patient. Superior bulla no longer intact, now is dried exudate/slough. Wound bed cleaned with normal saline, patient does not tolerate gentle mechanical debridement. Kerlix dressing was not wrapped around wound bed. According to DRAE Engel, patient pulled dressing off of wound. Wound beds very dry. Wound care will follow. Right Dorsal Foot Dressing Type: Open to Air Wound Bed Color: Red Site Measurement - Head-to-Toe Length X Width X Depth (cm): Small flat reddened areas, largest 0.8x0.6x0 Skin Integrity Problem Comment: Plan of care discussed with DREA Engel. Patient admitted for pneumonia from [facility], with history of pressure injuries to heels and right lower leg wounds. Reddened areas to dorsum of foot where blisters had been located on previous admission. Blisters have reabsorbed. Patient has pitting edema, and states area is painful. Wound care will not follow. Please reconsult wound care if wounds open or blisters return. Right Heel Pressure Injury Pressure Injury Present on Admit: Yes Skin Integrity Problem Comment: Patient has known pressure injuries, documented in previous admission on 06/24/18 as old healing wound. Patient refused assessment of wounds. Left Heel Pressure Injury Pressure Injury Present on Admit: Yes Skin Integrity Problem Comment: Patient has known pressure injuries, documented in previous admission on 06/24/18 as old healing wound. Patient refused assessment of wounds.
--- NOTE | 2018-07-13 14:55 | HOSPPROG ---
Hospitalist Progress Note Assessment/Plan: 83yo M who underwent R HERNAN 06/08 after fall and femur fracture with course complicated by RLE DVT came in from SNF for fever. 1. Fever now with Streptococccal bacteremia: Multiple potential sources but most concerning is infected right hip hardware. Other possibilities include epididymal, cellulitis and less likely lung. He is not septic. - Consulted ID - Switch levofloxacin to ceftriaxone 1g q24h - Discussed with orthopedic surgery (Dr Grissom), will evaluate for potential aspiration of R hip - Will obtain repeat cultures tomorrow 2. Left lower lobe infiltrate: This is chronic from prior x-rays. He has not respiratory symptoms. I suspect this may be atelectasis. 3. Hypoxemia: Requiring 1-2L NC. As above, suspect atelectasis over bacterial pneumonia. - Incentive spirometry, wean O2 as able 4. Testicular pain: Consistent with epididymitis. Will treat with antibiotics as above. 5. Anemia: H/H relatively stable, no e/o bleeding. Will monitor daily. 6. Heel and leg wounds: Present on arrival. Do not appear overtly infected. Leg wounds related to venous insufficiency. Wound care has been consulted 7. CKD: Creatinine better than previous admission. Monitor daily with antibiotics. 8. RLE DVT: Diagnosed 06/2018. Holding eliquis with potential need for hip aspiration. 9. H/o atrial fibrillation/flutter: NSR on admit. Not on leander blockers. Holding anticoagulation as above. 10. Abdominal aortic aneurysm: 6cm. Chronic. He has declined intervention on this. 11. Thrombocytopenia: Chronic, near baseline. 12. Type 2 diabetes: Diet controlled. 13. H/o R femur fracture: s/p HERNAN with Dr Blancas on 06/08. 14. BPH with h/o urinary retention: Urinating ok at present. 15. HTN: Holding home medications until stable from infection stand point. Diet: cardiac VTE ppx: SCDs, holding pharmacologic for now Code: limited (no compressions or intubation) Dispo: Remain inpatient for management of bacteremia with IV antibiotics Subjective: Complaining of left sided testicular pain. This has been going on for a week or so. Reports that it feels similar to prior episode of epididymitis. He denies any cough or sputum production. Also denies any dyspnea or pleuritic pain. His friend, Velia, thinks the wounds on his legs look better but he has developed heel wounds since being in rehab. He has been progressing nicely at rehab per her report. Objective: Vital Signs Temp Pulse Resp BP Pulse Ox 37.6 C 96 18 127/66 H 95 07/13/18 11:51 07/13/18 11:51 07/13/18 11:51 07/13/18 11:51 07/13/18 11:51 Laboratory Results 07/13/18 04:39 07/13/18 04:39 07/12/18 07/13/18 07/14/18 05:59 05:59 05:59 Intake Total 2266 Output Total 700 Balance 1566 - Physical Exam Constitutional: no apparent distress, not in pain Eyes: PERRL, anicteric sclera, EOMI Ears, Nose, Mouth, Throat: moist mucous membranes, hearing normal, ears appear normal, no oral mucosal ulcers Cardiovascular: regular rate and rhythym, no murmur, rub, or gallop Respiratory: no respiratory distress, reduced air movement (left base), No expiratory wheeze, No rhonchi Gastrointestinal: normoactive bowel sounds, soft, non-tender abdomen, no palpable masses Genitourinary: no bladder fullness, no bladder tenderness, no renal bruits Skin: other (several wounds on legs, none appear overtly infected) Musculoskeletal: full muscle strength, no muscle tenderness, normal joint ROM Neurologic: AAOx3, sensation intact bilaterally Psychiatric: interacting appropriately, not anxious, not encephalopathic, thought process linear ICD10 Worksheet Patient Problems: Problems Problem Status Onset DVT (deep venous thrombosis) Acute Fever Acute Hypoxia Acute Pneumonia Acute Acute kidney injury Acute Atrial flutter Acute Cervical strain Acute Dehydration Acute Displaced fracture of right femoral neck Acute Elevated troponin Acute Head injury Acute Hypoxemia Acute Nausea, vomiting, and diarrhea Acute Palliative care encounter Acute Pancreatitis Acute Pulmonary embolus Acute Toe infection Acute Vomiting Acute chronic disease mgmt/transitional care Acute
--- NOTE | 2018-07-13 18:08 | GCON ---
INPATIENT INFECTIOUS DISEASE CONSULTATION REFERRING PHYSICIAN: David Tamayo MD REASON FOR REFERRAL: Fever, streptococcus in blood. HISTORY OF PRESENT ILLNESS: Patient is an 83-year-old male who was admitted to [facility] from [facility] on the late evening of 07/12/2018. Patient was supposedly found at [facility] [place] responsive and febrile up to 104 degrees Fahrenheit. The patient was brought into the emergency room where evaluation resulted in initial diagnosis of a left lower lobe infiltrate. He was started on Levaquin. Blood cultures drawn initially last night very quickly grew streptococcus in 1/2 sets. In phone conversation before this visit, we changed his antibiotic to ceftriaxone earlier today. C urrently, the patient is resting comfortably in his hospital bed. Of note, he underwent an open redu ction/internal fixation of a right hip fracture on 06/08/2018. He states that the right hip has been causing him more pain with minor movement as of the last couple of weeks. He states this is signifi cantly worse than the pain he had immediately after surgery. The patient does have a history last ye ar of having a group B strep bloodstream infection from a distal foot wound. PAST MEDICAL HISTORY: 1. Deep venous thrombosis. 2. Hyperkalemia. 3. Atrial fibrillation. 4. Thrombocytopenia. 5. Hypertension. 6. Diabetes. 7. Peripheral vascular disease. 8. Abdominal aortic aneurysm. 9. Spinal stenosis. 10. Vertigo. 11. Psoriasis. 12. Benign prostatic hypertrophy. 13. Cataracts. 14. Anxiety. PAST SURGICAL HISTORY: 1. Status post right hip open reduction/internal fixation. 2. Status post appendectomy. 3. Status post left hip arthroplasty after a fall and fracture in August of 2017. 4. Status post cataract surgery. ANTIBIOTICS: 1. Ceftriaxone. 2. Prior dose of Levaquin. ALLERGIES: The patient is allergic to tetracyclines, azithromycin, nitrofurantoin, and sulfa. SOCIAL HISTORY: The patient is a remote smoker. He is . He lives independently but has been recovering at [facility] over the recent weeks. FAMILY HISTORY: Reviewed but noncontributory. REVIEW OF SYSTEMS: Other than that detailed above in History of Present Illness, comprehensive 10-sy stem review is negative. PHYSICAL EXAMINATION: VITAL SIGNS: Temperature maximum 38.2, temperature current is 36.7, heart rat e is 113, respiratory rate is 18, blood pressure is 116/75. GENERAL: The patient is a well-formed, well-nourished elderly male in no acute distress. He is mildly toxic in appearance. He is alert and oriented x3. He is pleasant in demeanor. HEENT: Normocephalic for age. Atraumatic. No scleral i cterus. No oral lesion or drainage from the nares. Eyes, lids, and conjunctivae are within normal l imits. Pupils are equal and round bilaterally. NECK: Supple. No meningismus. LUNGS: Clear to au scultation bilaterally with good effort. HEART: Tachycardic but regular. No significant peripheral edema. ABDOMEN: Soft, nontender. No ma sses. SKIN: Warm and dry to the touch. No rash or lesions seen. MUSCULOSKELETAL: No muscle belly tenderness is noted. Patient does have tenderness with passive range of motion of right hip. NEURO : Cranial nerves 2-12 seem to be intact. Peripheral sensation is decreased in the lower extremities bilaterally. LABORATORY DATA: Patient has a CBC dated 07/13/2018, shows a white blood cell count of 7.35, hemoglo bin of 7.7, hematocrit 25.3, and a platelet count of 147. Differential is left-shifted with 87% segm ented neutrophils. Serum chemistries on 07/13/2018 show sodium 140, potassium 4.5, chloride of 109, bicarb of 22, BUN of 31, creatinine of 1.2. Urinalysis on 07/12/2018 is within normal limits. Flu swab dated 07/12/2018 is negative for both flu A and flu B. MICROBIOLOGIC DATA: Patient has blood cultures dated 07/12/2018. One out of 2 sets is growing gram- positive cocci in chains identified by the BCID PCR panel as streptococcal species, not group A, grou p B, or pneumoniae. Urine culture dated 07/12 is pending. RADIOLOGIC DATA: Patient has a chest x-ray dated 07/12/2018 which was read as suspect mild consolida tion in the lateral left lung base. The patient also had an 07/13 hip x-ray of the right hip which showed no dislocation or hardware loos ening or fracture. ASSESSMENT: Mild sepsis presentation with streptococcus species in the blood stream. There is no ob vious source of his streptococcal infection, although I am suspicious, given his increasing discomfor t in the right hip over the last couple weeks, that this may be indicative of a postoperative infecti on source. Discussed condition with Dr. Tamayo. We did earlier today switch his antibiotic covera ge from Levaquin to ceftriaxone. Will ensure that Orthopedics does come by and aspirate the right hi p for diagnostic purposes. In the meantime, we will continue the patient on ceftriaxone and follow t he final identification of the bacteria in his blood stream. PLAN: 1. Continue ceftriaxone 1 g IV q.24 hours. 2. Ask Orthopedics to obtain aspirate of right hip for culture and sensitivity. 3. Also ask that the aspirate be sent for cell count. 4. Repeat blood cultures in 1-2 days after treatment initiation. 5. Follow patient's clinical course. /[id number]/MODL
[2018-07-13] MEDS: ACETAMINOPHEN 325 MG TAB PO PRN (21:57)
--- NOTE | 2018-07-13 23:03 | GCON ---
DATE OF CONSULTATION: 07/13/2018 REFERRING PHYSICIAN: David Tamayo MD REASON FOR CONSULTATION: Right hip pain status post total hip arthroplasty 1 month ago with bacterem ia. HISTORY OF PRESENT ILLNESS: The patient is an 83-year-old man with a past medical history of AFib, h ypertension, diabetes mellitus type 2, aortic aneurysm, who was status post a right total hip arthrop lasty on June [address] Karsten Blancas. He was also status post a left bipolar arthroplasty in the past. He was readmitted on June 23 with DVT on the right side. He was discharged back to a [facility] hospital and had been doing well until just prior to his admission. 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 He was hypoxic in the 80s and had fever up to 104 in that facility and was brought to the ER. [facility] , was started on antibiotics. He had been bacteremic with strep. Consulted for evaluation of his right hip. On examining the patient at the bedside, I questioned whether he had any new pain in that hip. He sta jefferson that his pain had been the same. However, he did note that the right leg felt different and he w as concerned that he had not been progressing quickly enough with his rehab. On speaking with Velia philippe, his [id number], she said that he began complaining of pain from his hip down to his kne e in the front for the past week and she said that he has been mostly getting around in the wheelchai r. He stated that he reported to have made some steps with a front-wheel walker. REVIEW OF SYSTEMS: Negative except as noted above. ALLERGIES: Tetracycline, azithromycin, nitrofurantoin, penicillin, sulfa. PAST MEDICAL HISTORY: As noted above. PAST SURGICAL HISTORY: Right total hip arthroplasty by Dr. Blancas on June 08, left bipolar hip arthroplasty on 07/07/2018, prior appendectomy. FAMILY HISTORY: Noncontributory. SOCIAL HISTORY: He is currently residing at the [facility]. LABORATORY DATA: White count is normal at 7.35. He is anemic with hemoglobin of 7.7. Blood culture s are positive for gram-positive cocci in chains, streptococcus species. PHYSICAL EXAMINATION: VITAL SIGNS: He is afebrile. GENERAL: He is resting in a chair. He is in n o apparent distress. MUSCULOSKELETAL: Right lower extremity: I examined his incision. It appears to be healing well. There is no sign of drainage or wound breakdown. There is a small dry eschar th at appears to be healing. He has some tenderness to palpation over the incision. Passive flexion an d extension of his hip revealed some pain. He has chronic venous stasis ulcers in both lower legs. IMAGING: X-ray of both his right total hip and his left bipolar arthroplasty is unremarkable. ASSESSMENT AND PLAN: Status post right total hip arthroplasty with bacteremia with an unclear source . On speaking with Dr. Tamayo, he is not convinced that the patient has a pneumonia. They are conc erned for the hip as the source. I reviewed Dr. Vivar's note with ID who requests aspiration of the hip to rule out the hip as the source. On my own examination and interview of the patient today, it is unclear if his hip is more symptomatic. If he has a prosthetic joint infection and bacteremia of the right hip that is concerning for seeding of the left hip, I will recommend an ultrasound of both hips to assess if there is of both hips but recommend ESR and CRP as a baseline. Would r ecommend an aspiration by IR under fluoro guidance of the distal right hip. I would recommend nabila jackson this for a Gram stain, cell count, differential, and cultures. Will then follow up the results of the aspirate, and I will discuss this with Dr. Blancas. /[id number]/MODL
[2018-07-14] MEDS: NYSTATIN SUSP 500000 UNIT/5 ML UD LIQ PO SCH ×5 (04:52→21:26)
[2018-07-14] MEDS: ACETAMINOPHEN 325 MG TAB PO PRN ×3 (09:21→19:42)
[2018-07-14] MEDS ORDERED: LIDOCAINE 1% 300 MG/30 ML SDV ONE (09:36)
[2018-07-14] MEDS ORDERED: IOPAMIDOL (ISOVUE 370) 100 ML BTL IV ONE (09:36)
--- NOTE | 2018-07-14 09:59 | PCMIDPN ---
Assessment/Plan: # Fever, bacteremia: R hip pain, also describes low appetite. Very subtle infiltrate left lower lobe --if hip aspirate negative then consider CT Abd/pelvis and/or chest --await ID of Streptococcus, if significant pathogen will plan repeat blood cultures after 48 hr of antibiotics # Multiple abx allergies:tetracycline: GI sx; denies PCN allergy and was removed from list Microbiology 07/12/18 23:09 Blood Cx (08/19) Streptococcus Subjective: Serosanguineous fluid from right hip was aspirated by Radiology this a.m. Patient states that his testicular pain has resolved Complains of constipation and low appetite in general. No focal abdominal pain Objective: Vital Signs Temp Pulse Resp BP Pulse Ox 37.2 C 67 16 125/54 H 95 07/14/18 07:27 07/14/18 07:27 07/14/18 07:27 07/14/18 07:27 07/14/18 07:27 Laboratory Results 07/14/18 05:08 07/14/18 05:08 07/13/18 07/14/18 07/15/18 05:59 05:59 05:59 Intake Total 2266 Output Total 700 Balance 1566 ESR 32 MM/HR (0-20) H 07/13/18 04:39 C-Reactive Protein 167.4 mg/L (<10.0) H 07/13/18 04:39 - Physical Exam General Appearance: alert, no apparent distress, non-toxic EENT: pale conjunctiva Respiratory: lungs clear, No accessory muscle use Neck: supple, normal inspection Cardiac/Chest: regular rate, rhythm Extremities: other (Hyperpigmentation in a stocking distribution. Ulceration on the dorsum of the right foot without surrounding erythema) Abdomen: non-tender, soft, distended (Mild) Male Genitalia: No melissa Skin: No rash Neuro/Psych: alert, normal mood/affect, oriented x 3 - Time Spent With Patient Time Spent with Patient: greater than 35 minutes Time Spent with Patient: Greater than 35 minutes spent on this patients care, greater than 50% of time spent counseling, educating, and coordinating care regarding the above mentioned plan. ICD10 Worksheet Patient Problems: Problems Problem Status Onset DVT (deep venous thrombosis) Acute Fever Acute Hypoxia Acute Pneumonia Acute Acute kidney injury Acute Atrial flutter Acute Cervical strain Acute Dehydration Acute Displaced fracture of right femoral neck Acute Elevated troponin Acute Head injury Acute Hypoxemia Acute Nausea, vomiting, and diarrhea Acute Palliative care encounter Acute Pancreatitis Acute Pulmonary embolus Acute Toe infection Acute Vomiting Acute chronic disease mgmt/transitional care Acute
--- NOTE | 2018-07-14 14:55 | HOSPPROG ---
Hospitalist Progress Note Assessment/Plan: 83yo M who underwent R HERNAN 06/08 after fall and femur fracture with course complicated by RLE DVT came in from SNF for fever. 1. Fever with Streptococccal bacteremia: - Speciated as Strep dysgalactiae (group C/G), will ask ID if pathogenic. If so, suspect skin source (LE wounds) - Right hip aspirated. Gram stain without PMNs or organisms, await cultures. Cell count with 12k WBCs w/neutrophil predominance but also significant RBCs; not c/w septic joint. Ortho following - Continue ceftriaxone - Repeat blood cultures tomorrow 2. Left lower lobe infiltrate: This is relatively chronic from prior x-rays. He has not respiratory symptoms. I suspect this may be atelectasis. 3. Hypoxemia: Requiring 1-2L NC. As above, suspect atelectasis over bacterial pneumonia. - Incentive spirometry, wean O2 as able 4. Testicular pain: Resolved. Unclear if truly epididymitis. Nonetheless, getting abx as above which should cover typical organisms. 5. Anemia: H/H relatively stable, no e/o bleeding. Will monitor daily. 6. Heel and leg wounds: Present on arrival. Leg wounds related to venous insufficiency. Wound care has been consulted 7. CKD: Creatinine better than previous admission. Monitor daily with antibiotics. 8. RLE DVT: Diagnosed 06/2018. Holding eliquis until clear that doesn't need surgical intervention. 9. H/o atrial fibrillation/flutter: NSR on admit. Not on leander blockers. Holding anticoagulation as above. 10. Abdominal aortic aneurysm: 6cm. Chronic. He has declined intervention on this. 11. Thrombocytopenia: Chronic, near baseline. 12. Type 2 diabetes: Diet controlled. 13. H/o R femur fracture: s/p HERNAN with Dr Blancas on 06/08. 14. BPH with h/o urinary retention: Urinating ok at present. 15. HTN: Holding home medications until stable from infection stand point. Diet: cardiac VTE ppx: SCDs, holding pharmacologic for now Code: limited (no compressions or intubation) Dispo: Remain inpatient for management of bacteremia with IV antibiotics Subjective: 6ml of serosanguinous fluid drained from right hip this AM. No fevers or increase in pain. Testicular pain has resolved. Continues to deny any respiratory symptoms. Objective: Vital Signs Temp Pulse Resp BP Pulse Ox 36.8 C 67 17 99/52 L 91 L 07/14/18 11:55 07/14/18 14:32 07/14/18 14:32 07/14/18 11:55 07/14/18 14:32 Microbiology 07/14/18 10:28 Gram Stain - Final Hip - Aspirate Laboratory Results 07/14/18 05:08 07/14/18 05:08 07/13/18 07/14/18 07/15/18 05:59 05:59 05:59 Intake Total 2266 Output Total 700 Balance 1566 - Physical Exam Constitutional: no apparent distress, appears nourished, not in pain Eyes: PERRL, anicteric sclera, EOMI Ears, Nose, Mouth, Throat: moist mucous membranes, hearing normal, ears appear normal, no oral mucosal ulcers Cardiovascular: regular rate and rhythym, no murmur, rub, or gallop, No edema Respiratory: no respiratory distress, rhonchi (left base) Gastrointestinal: normoactive bowel sounds, soft, non-tender abdomen, no palpable masses, No tenderness Genitourinary: no bladder fullness, no bladder tenderness, no renal bruits Skin: no rashes or abrasions, no fluctuance, no induration Musculoskeletal: full muscle strength, no muscle tenderness, normal joint ROM Neurologic: AAOx3, sensation intact bilaterally Psychiatric: interacting appropriately, not anxious, not encephalopathic, thought process linear ICD10 Worksheet Patient Problems: Problems Problem Status Onset DVT (deep venous thrombosis) Acute Fever Acute Hypoxia Acute Pneumonia Acute Acute kidney injury Acute Atrial flutter Acute Cervical strain Acute Dehydration Acute Displaced fracture of right femoral neck Acute Elevated troponin Acute Head injury Acute Hypoxemia Acute Nausea, vomiting, and diarrhea Acute Palliative care encounter Acute Pancreatitis Acute Pulmonary embolus Acute Toe infection Acute Vomiting Acute chronic disease mgmt/transitional care Acute
--- NOTE | 2018-07-14 18:17 | SOAPPROG ---
SOAP Progress Note Assessment/Plan: Assessment: S/p R HERNAN on 06/08 with bacteremia of unknown source -hip aspirate gram stain neg for bacteria or white cells -cell count 1229 Plan: -results of hip aspirate not diagnostic of acute PJI of hip. Dr. Blancas will eval the patient in the am. At this point would recommend awaiting culture results. 07/14/18 18:13 Subjective: He feels better overall this evening. No hip pain at rest. Pain exacerbated when he is rolled. Objective: Vital Signs Temp Pulse Resp BP Pulse Ox 36.7 C 69 18 88/66 L 91 L 07/14/18 17:22 07/14/18 17:22 07/14/18 17:22 07/14/18 17:22 07/14/18 17:22 Microbiology 07/14/18 10:28 Gram Stain - Final Hip - Aspirate Laboratory Results 07/14/18 05:08 07/14/18 05:08 07/13/18 07/14/18 07/15/18 05:59 05:59 05:59 Intake Total 2266 Output Total 700 Balance 1566 No fevers ESR 32 CRP 167 R hip -mild pain with passive flex/ext ICD10 Worksheet Patient Problems: Problems Problem Status Onset DVT (deep venous thrombosis) Acute Fever Acute Hypoxia Acute Pneumonia Acute Acute kidney injury Acute Atrial flutter Acute Cervical strain Acute Dehydration Acute Displaced fracture of right femoral neck Acute Elevated troponin Acute Head injury Acute Hypoxemia Acute Nausea, vomiting, and diarrhea Acute Palliative care encounter Acute Pancreatitis Acute Pulmonary embolus Acute Toe infection Acute Vomiting Acute chronic disease mgmt/transitional care Acute
[2018-07-14] MEDS ORDERED: LISINOPRIL 20 MG TAB PO SCH (21:00)
[2018-07-15] MEDS: NYSTATIN SUSP 500000 UNIT/5 ML UD LIQ PO SCH ×4 (05:36→20:52)
--- NOTE | 2018-07-15 06:41 | SOAPPROG ---
SOAP Progress Note Assessment/Plan: Assessment: s/p right jose for right femoral neck fx Plan:spoke with ajit staton from [place], will await cx results from right hip aspiration yesterday. low wbc count unlikely to be source of infection. If patient is bacteremic, i would expect much higher counts and gross purulence at hip joint. wbc in blood 6. patient demonstrates active rom with appropriate post op pain. xrays with stable alignment. Continue iv abx and pursuit of source. dvt precautions wbat anterior hip precautions 07/15/18 06:37 07/15/18 06:41 Subjective: tired no specfic pain no cp or sob Objective: Vital Signs Temp Pulse Resp BP Pulse Ox 36.9 C 95 18 135/75 H 92 07/15/18 04:00 07/15/18 04:00 07/15/18 04:00 07/15/18 04:00 07/15/18 04:00 Microbiology 07/14/18 10:28 Gram Stain - Final Hip - Aspirate Laboratory Results 07/14/18 05:08 07/14/18 05:08 07/14/18 07/15/18 07/16/18 05:59 05:59 05:59 Intake Total 450 Output Total 250 Balance 200 right hip incision healing small 1 cm eschar over middle third, no surrounding erythema or drainage mild thigh swelling and mild ttp active hip flexion 4/5 denies calf pain zeynep, neg homans ICD10 Worksheet Patient Problems: Problems Problem Status Onset DVT (deep venous thrombosis) Acute Fever Acute Hypoxia Acute Pneumonia Acute Acute kidney injury Acute Atrial flutter Acute Cervical strain Acute Dehydration Acute Displaced fracture of right femoral neck Acute Elevated troponin Acute Head injury Acute Hypoxemia Acute Nausea, vomiting, and diarrhea Acute Palliative care encounter Acute Pancreatitis Acute Pulmonary embolus Acute Toe infection Acute Vomiting Acute chronic disease mgmt/transitional care Acute
[2018-07-15] MEDS ORDERED: amLODIPine BESYLATE 5 MG TAB PO SCH (09:00)
[2018-07-15] MEDS ORDERED: POLYETHYLENE GLYCOL 3350 17 GM PKT PO PRN (10:42)
--- NOTE | 2018-07-15 10:42 | HOSPPROG ---
Hospitalist Progress Note Assessment/Plan: 83yo M who underwent R HERNAN 06/08 after fall and femur fracture with course complicated by RLE DVT came in from SNF for fever. 1. Fever with Streptococccal bacteremia: - Speciated as Strep dysgalactiae (group C) - Right hip aspiration not consistent with septic joint/prosthetic joint infection but culture pending. Ortho following - Seems most likely that skin is source, less likely lung or hip - Continue ceftriaxone 2g qd, ID following - Repeat blood cultures drawn this AM, if not clearing will obtain echocardiogram 2. Left lower lobe infiltrate with mild hypoxemia: This is relatively chronic from prior x-rays. He has no respiratory symptoms. I suspect this may be atelectasis. 3. Heel and leg wounds: Present on arrival. Leg wounds related to venous insufficiency. - Antibiotics as above, wound care following 4. RLE DVT: Diagnosed 06/2018. Likely provoked in setting of surgery but this is a recurrent issue for him. - Anticoagulation initially held for aspiration - Restart eliquis 5 BID 5. Testicular pain: Resolved. Unclear if truly epididymitis. Nonetheless, getting abx as above which should cover typical organisms. 6. Anemia: H/H relatively stable, no e/o bleeding. Will monitor daily. 7. CKD: Creatinine better than previous admission. Monitor daily with antibiotics. 8. H/o atrial fibrillation/flutter: NSR this admit. Not on leander blockers. Anticoagulation as above ([id number]). 10. Abdominal aortic aneurysm: 6cm. Chronic. He has declined intervention on this. 11. Thrombocytopenia: Chronic, near baseline. 12. Type 2 diabetes: Diet controlled. 13. H/o R femur fracture: s/p HERNAN with Dr Blancas on 06/08. 14. BPH with h/o urinary retention: Urinating ok at present. Restarting flomax 15. HTN: Holding home medications, BP on low side without them. 16. Peripheral vascular disease: S/p left toe amputation. Diet: cardiac VTE ppx: therapeutic anticoagulation Code: limited (no compressions or intubation) Dispo: Remain inpatient for management of bacteremia with IV antibiotics, await cultures to determine abx/duration. Plan to go back to [facility] when medically ready. Subjective: Overall feeling pretty good. Had some worsened left hip pain when moving from bed to chair. Minimal right hip pain. No testicular pain. No fevers or difficulty breathing. Leg wounds not draining Objective: Vital Signs Temp Pulse Resp BP Pulse Ox 36.8 C 92 16 116/68 91 L 07/15/18 08:50 07/15/18 08:50 07/15/18 08:50 07/15/18 08:50 07/15/18 08:50 Microbiology 07/14/18 10:28 Gram Stain - Final Hip - Aspirate Laboratory Results 07/15/18 07:50 07/15/18 07:50 07/14/18 07/15/18 07/16/18 05:59 05:59 05:59 Intake Total 450 612 Output Total 250 Balance 200 612 - Physical Exam Constitutional: no apparent distress, appears nourished, not in pain, other ( disheveled) Eyes: PERRL, anicteric sclera, EOMI Ears, Nose, Mouth, Throat: moist mucous membranes, hearing normal, ears appear normal, no oral mucosal ulcers Cardiovascular: regular rate and rhythym, no murmur, rub, or gallop, edema ( significant swelling in right foot/ankle) Respiratory: no respiratory distress, reduced air movement (left base), No expiratory wheeze, No rhonchi Gastrointestinal: normoactive bowel sounds, soft, non-tender abdomen, no palpable masses, distension, No tenderness Genitourinary: other (condom cath on with yellow urine in bag) Skin: other (chronic venous stasis changes of BLE, R anterior leg wound without clear signs of infection or drainage, right heel wound) Musculoskeletal: full muscle strength, no muscle tenderness, normal joint ROM Neurologic: AAOx3, sensation intact bilaterally Psychiatric: interacting appropriately, not anxious, not encephalopathic, thought process linear ICD10 Worksheet Patient Problems: Problems Problem Status Onset DVT (deep venous thrombosis) Acute Fever Acute Hypoxia Acute Pneumonia Acute Acute kidney injury Acute Atrial flutter Acute Cervical strain Acute Dehydration Acute Displaced fracture of right femoral neck Acute Elevated troponin Acute Head injury Acute Hypoxemia Acute Nausea, vomiting, and diarrhea Acute Palliative care encounter Acute Pancreatitis Acute Pulmonary embolus Acute Toe infection Acute Vomiting Acute chronic disease mgmt/transitional care Acute
[2018-07-15] MEDS ORDERED: APIXABAN 5 MG TAB PO SCH (10:45)
--- NOTE | 2018-07-15 11:47 | PCMIDPN ---
Assessment/Plan: # Group C/G bacteremia: unclear source. Hip tap with fairly low wbc count although cutoff for prosthetic joints around 1100. Pain associated w R hip without realm of expectations post op. Will follow aspirate culture. Source may be R foot which has petechiae and swelling with multiple areas of skin breakdown --will image R foot first, then consider broadening evaluation to Chest, abd, pelvis --continue IV ceftriaxone --blood cx repeated today, no ECHO at this point. Only low grade bacteremia and very subtle SM --reasonable to follow R hip cultures, discussed w Dr. Blancas # Multiple abx allergies:tetracycline: GI sx; denies PCN allergy and was removed from list yesterday Microbiology 07/12/18 Blood Cx (1/2) Streptococcus C/G 07/15/18 blood cx (2) pending meds ceftriaxone 2gm IV daily #3 Subjective: patient very agitated today only allowing limited exam - "everyone keeps coming in and bothering me" "doesn't anyone get a day off around here" denies coughing, abdominal pain Hip pain at baseline Objective: Vital Signs Temp Pulse Resp BP Pulse Ox 36.8 C 92 16 116/68 91 L 07/15/18 08:50 07/15/18 08:50 07/15/18 08:50 07/15/18 08:50 07/15/18 08:50 Microbiology 07/14/18 10:28 Gram Stain - Final Hip - Aspirate Laboratory Results 07/15/18 07:50 07/15/18 07:50 07/14/18 07/15/18 07/16/18 05:59 05:59 05:59 Intake Total 450 612 Output Total 250 Balance 200 612 ESR 32 MM/HR (0-20) H 07/13/18 04:39 C-Reactive Protein 167.4 mg/L (<10.0) H 07/13/18 04:39 Gen: Elderly, no acute distress HEENT pallor Chest: breathing easy CV: RRR Ext: Right foot w scattered petechiae, swelling, heal breakdown, scab dorsum of foot, mild warmth ICD10 Worksheet Patient Problems: Problems Problem Status Onset DVT (deep venous thrombosis) Acute Fever Acute Hypoxia Acute Pneumonia Acute Acute kidney injury Acute Atrial flutter Acute Cervical strain Acute Dehydration Acute Displaced fracture of right femoral neck Acute Elevated troponin Acute Head injury Acute Hypoxemia Acute Nausea, vomiting, and diarrhea Acute Palliative care encounter Acute Pancreatitis Acute Pulmonary embolus Acute Toe infection Acute Vomiting Acute chronic disease mgmt/transitional care Acute
--- NOTE | 2018-07-15 15:12 | ASMTCMCOM ---
CLAUDIA Note CM Note Notes: Recieved call from Jose at , wanting updates on and to find out if pt will be returning. CLAUDIA sent updates via [employer], pt will likely need IV abx for a foot infection. Pt to have MRI tomorrow, CLAUDIA w/f. DC Plan: [facility]/ Date Signed: 07/15/2018 03:10 PM Electronically Signed By:Mary Cobb RN
[2018-07-15] MEDS: ENOXAPARIN 100 MG/ML SYR SC SCH (20:52)
[2018-07-15] MEDS: SENNOSIDES/DOCUSATE SODIUM TAB PO SCH (20:52)
[2018-07-16] MEDS: NYSTATIN SUSP 500000 UNIT/5 ML UD LIQ PO SCH ×3 (05:37→17:26)
[2018-07-16] MEDS: ENOXAPARIN 100 MG/ML SYR SC SCH ×2 (08:41→22:33)
[2018-07-16] MEDS: TAMSULOSIN HCL 0.4 MG CAP PO SCH (08:45)
[2018-07-16] MEDS: SENNOSIDES/DOCUSATE SODIUM TAB PO SCH ×2 (08:45→21:40)
--- NOTE | 2018-07-16 09:59 | PCMIDPN ---
Assessment/Plan: 1. Group C/G bacteremia in patient with recent right hip arthroplasty June 08 : At this point in time, strongly suspect the transient (1/4 bottles) bacteremia is secondary to a right lower extremity cellulitis. I am aware that he has a DVT in his right lower extremity, but it is clearly more brick red and warm compared with the left. He also has some open pretibial wounds/blisters in his right lower extremity as well as a quarter-sized fairly superficial ulceration in his left heel. Thankfully, the new hip does not appear to be involved, with no growth on culture. Doubt an intra-abdominal process, or endocarditis. Pneumonia seems very unlikely given lack of symptoms, and left lower lobe abnormality was seen only on AP film. Had a long conversation with patient today, trying to teach him why we are doing what we are doing, and why we are recommending what we are recommending. He was able to teach this back to me today at the end of our conversation. Again, suspect that right lower extremity cellulitis and breech in integument has caused a bacteremia, which thankfully has not seeded his hip. Explained to him that because of the hardware in his right and left hip, need to convince ourselves that there is not a deeper infection (pyomyositis, abscess or osteomyelitis) in the right lower extremity; hence the need for MRI. He expressed understanding after our over 40 min conversation. Plan: * MRI with and without contrast of the right lower extremity and right foot * Continue ceftriaxone as is * Repeat blood cultures are pending and show no growth so far * Continue wound care; appreciate their assistance. * Gram stain culture of blister fluid from right lower extremity sent Over 45 min spent with this patient today. 07/16/18 10:02 Subjective: Patient frustrated, and does not understand why he needs an MRI, and"all of these tests."Tells me"no one is explaining anything to me, and telling me that I can just leave here and if I keep refusing tests." Denies diarrhea. Both hips are uncomfortable, but overall are improved. He is able to lift his right lower extremity with ease using his hip flexors, which he tells me was more difficult previously. He is not coughing, and does not feel short of breath. Objective: Ceftriaxone 2 g IV daily day 4 No fevers Vital Signs Temp Pulse Resp BP Pulse Ox 36.6 C 70 18 130/57 H 89 L 07/16/18 07:36 07/16/18 07:36 07/16/18 07:36 07/16/18 07:36 07/16/18 07:36 Microbiology 07/14/18 10:28 Gram Stain - Final Hip - Aspirate Laboratory Results 07/15/18 07:50 07/15/18 07:50 07/15/18 07/16/18 07/17/18 05:59 05:59 05:59 Intake Total 450 1362 Output Total 250 602 Balance 200 760 ESR 32 MM/HR (0-20) H 07/13/18 04:39 C-Reactive Protein 167.4 mg/L (<10.0) H 07/13/18 04:39 Blood cultures July 12 x2 sets 1/4 bottles group C/G strep ceftriaxone BURKE less than 0.0625 Hip aspirate July 14 Gram stain negative culture no growth July 15 blood cultures x2 no growth so far CRP 167.4 - Physical Exam General Appearance: alert, no apparent distress EENT: pharynx normal, other (No teeth), No thrush Respiratory: lungs clear Cardiac/Chest: regular rate, rhythm, No systolic murmur Extremities: other (Right hip incision clean, dry, intact with no erythema whatsoever. Midpole of the incision there is a small scab that is not tender and is not draining. Right lower extremity is swollen compared to the left. It is more brick red compared to the left, and diffusely warm compared to the left. Pretibial area is notable for a flaccid bulla that is covered with a dressing. He also has a few small blisters distally, 1 of which burst and I cultured. His right foot dorsum is puffy, and he has a half-dollar size ulcer with clean margins that is tender in his heel area. This appears superficial. 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 This is old and healed.) Skin: No rash, No embolic lesions Neuro/Psych: oriented x 3 ICD10 Worksheet Patient Problems: Problems Problem Status Onset DVT (deep venous thrombosis) Acute Fever Acute Hypoxia Acute Pneumonia Acute Acute kidney injury Acute Atrial flutter Acute Cervical strain Acute Dehydration Acute Displaced fracture of right femoral neck Acute Elevated troponin Acute Head injury Acute Hypoxemia Acute Nausea, vomiting, and diarrhea Acute Palliative care encounter Acute Pancreatitis Acute Pulmonary embolus Acute Toe infection Acute Vomiting Acute chronic disease mgmt/transitional care Acute
--- NOTE | 2018-07-16 10:31 | HOSPPROG ---
Hospitalist Progress Note Assessment/Plan: The patient is a 83-year-old male with PMH right hip replacement, AFib, AAA, diabetes who was admitted for fever and streptococcal bacteremia. This patient is new to me. Reviewed patient's chart/records for this visit. ASSESSMENT/PLAN: Strep bacteramia - possibly contaminant LLL atelectasis Heel/leg wounds -MRI foot to r/o OM -Appreciate ID recs. -FU BCx. -R hip fluid studies negative for infection. RLE DVT PAF -normally on Eliquis. Switched to Lovenox during hospitalization. Thrombocytopenia Anemia CKD -stable. VTE prophylaxis: Lovenox Code Status: Limited resuscitation Status: inpt for > 2 midnight stay. Disposition: location with discharge anticipated when ____ SUBJECTIVE: OBJECTIVE: Physical Exam: General: The patient is a thin female who is alert and in no acute distress. HEENT: normocephalic, extraocular movements intact, conjunctivae clear. Mucous membranes moist or dry. Neck: trachea midline, no visible masses. CV: +S1/S2, RRR, no MRG. Resp: unlabored, CTAB no RRW. Abd: soft and nondistended. Bowel sounds . non tender where. Musculoskeletal: Normal or reduced muscle tone/bulk. Neuro: cranial nerves II XII grossly intact. Intact gross motor and sensory function. Psych: appropriate mood and appropriate affect. Skin: No pallor. No petechiae. Heme/lymph: No peripheral edema at bilateral lower legs. Labs/Imaging/Other Tests: Personally reviewed/interpreted. Hip XR - No acute fracture or dislocation. Objective: Vital Signs Temp Pulse Resp BP Pulse Ox 36.6 C 70 18 130/57 H 89 L 07/16/18 07:36 07/16/18 07:36 07/16/18 07:36 07/16/18 07:36 07/16/18 07:36 Microbiology 07/14/18 10:28 Gram Stain - Final Hip - Aspirate Laboratory Results 07/15/18 07:50 07/15/18 07:50 07/15/18 07/16/18 07/17/18 05:59 05:59 05:59 Intake Total 450 1362 Output Total 250 602 Balance 200 760 - Time Spent With Patient Time Spent with Patient: greater than 35 minutes Time Spent with Patient: Greater than 35 minutes spent on this patients care, greater than 50% of time spent counseling, educating, and coordinating care regarding the above mentioned plan. ICD10 Worksheet Patient Problems: Problems Problem Status Onset DVT (deep venous thrombosis) Acute Fever Acute Hypoxia Acute Pneumonia Acute Acute kidney injury Acute Atrial flutter Acute Cervical strain Acute Dehydration Acute Displaced fracture of right femoral neck Acute Elevated troponin Acute Head injury Acute Hypoxemia Acute Nausea, vomiting, and diarrhea Acute Palliative care encounter Acute Pancreatitis Acute Pulmonary embolus Acute Toe infection Acute Vomiting Acute chronic disease mgmt/transitional care Acute
[2018-07-16] MEDS: ACETAMINOPHEN 325 MG TAB PO PRN ×2 (14:18→23:11)
--- NOTE | 2018-07-16 14:29 | ASMTCMCOM ---
CM Note CM Note Notes: Met with pt to discuss rehab. Pt was at [facility], per Quirino at , pt did not want to pay the post 21 day copay. CM then spoke to Daysi, she is working with pt, pt's friend Velia, and KAYE. LTC Medicaid application has been submitted, and copy faxed to Pt still needs SNF, he remains a 2 person assist and will now need IV abx. DC Plan: SNF Date Signed: 07/16/2018 02:28 PM Electronically Signed By:Mary Cobb RN
[2018-07-16] MEDS ORDERED: LIDOCAINE 2% JELLY 5 ML TUBE TP ONE (20:08)
[2018-07-17] MEDS ORDERED: TAMSULOSIN HCL 0.4 MG CAP PO ONE (00:15)
[2018-07-17] MEDS: NYSTATIN SUSP 500000 UNIT/5 ML UD LIQ PO SCH ×6 (00:24→23:59)
[2018-07-17] MEDS: SENNOSIDES/DOCUSATE SODIUM TAB PO SCH ×2 (09:14→21:07)
[2018-07-17] MEDS: TAMSULOSIN HCL 0.4 MG CAP PO SCH (09:14)
[2018-07-17] MEDS: ENOXAPARIN 100 MG/ML SYR SC SCH ×2 (09:15→21:07)
--- NOTE | 2018-07-17 09:41 | PCMIDPN ---
Assessment/Plan: 1. Group C/G bacteremia in patient with recent right hip arthroplasty June 08 : Again, transient bacteremia likely latest to right lower extremity cellulitis. Clinical suspicion for deeper infection, such as osteomyelitis or abscess is low , although I did expressed to the patient my rationale behind additional imaging in the setting of bilateral artificial hips. This morning he is extremely irritable and almost combative. He does not have IV access. Strongly feel the patient needs a psychiatric evaluation to evaluate if he is competent to make medical decisions. I have placed a call to the microbiology lab to assess whether his group C/G Streptococcus is susceptible to the fluoroquinolones and if so, will likely start Levaquin orally if he is amenable to that. Subjective: Events in past 24 hr noted. I was called by MRI that patient was on the table and then refused this study. This morning, he apparently pulled out a 2nd IV but he denies that. He told me that he had negative experiences with MRIs in the past, and being on the table with a loud noise brought those bad memories back. He is not interested in any additional imaging of his leg at this point in time. In fact, the patient is extremely irritable this morning, and almost yelling at me. Tells me"why do not you people just leave me alone."He is refusing additional IV antibiotics at this time. Objective: Ceftriaxone 2 g IV daily day 5 (did not receive day 5 dose today) No fevers Vital Signs Temp Pulse Resp BP Pulse Ox 36.6 C 69 20 125/45 H 95 07/17/18 08:00 07/17/18 08:00 07/17/18 08:00 07/17/18 08:00 07/17/18 08:00 Microbiology 07/16/18 10:10 Gram Stain - Final Leg - Swab Body Fluid Culture - Final 07/14/18 10:28 Gram Stain - Final Hip - Aspirate Laboratory Results 07/15/18 07:50 07/15/18 07:50 07/16/18 07/17/18 07/18/18 05:59 05:59 05:59 Intake Total 1362 Output Total 602 550 200 Balance 760 -550 -200 ESR 32 MM/HR (0-20) H 07/13/18 04:39 C-Reactive Protein 167.4 mg/L (<10.0) H 07/13/18 04:39 Hip cultures remain sterile, repeat blood cultures from July 15 x2 no growth - Physical Exam General Appearance: other (Extremely irritable. refuses a physical exam) ICD10 Worksheet Patient Problems: Problems Problem Status Onset DVT (deep venous thrombosis) Acute Fever Acute Hypoxia Acute Pneumonia Acute Acute kidney injury Acute Atrial flutter Acute Cervical strain Acute Dehydration Acute Displaced fracture of right femoral neck Acute Elevated troponin Acute Head injury Acute Hypoxemia Acute Nausea, vomiting, and diarrhea Acute Palliative care encounter Acute Pancreatitis Acute Pulmonary embolus Acute Toe infection Acute Vomiting Acute chronic disease mgmt/transitional care Acute
--- NOTE | 2018-07-17 10:39 | ASMTCMCOM ---
CM Note CM Note Notes: CM spoke to friend Velia Fragoso and left a message with Daysi, from [facility], re progress with pt. Pt had agreed to an MRI, but once on the table by the machine appeared to panic and refused MRI. He again pulled his IV out, though denies it. Pt's vascillating between being cooperative with treatment and refusing treatment is interfering with his ability to receive the best possible care. Due to this a psychiatric consult to both look at potential more successful interventions and decisionality has been requested. CM to follow. D/C Plan: [facility] Date Signed: 07/17/2018 10:38 AM Electronically Signed By:Felipa Weldon
--- NOTE | 2018-07-17 12:00 | HOSPPROG ---
Hospitalist Progress Note Assessment/Plan: The patient is a 83-year-old male with PMH right hip replacement, AFib, AAA, diabetes who was admitted for fever and streptococcal bacteremia. ASSESSMENT/PLAN: Strep bacteremia - suspect contaminant LLL atelectasis Heel/leg wounds w/ cellulitis and possible osteomyelitis -Pt refusing MRI foot to r/o OM. Also refuses CT scan. However he does want to continue medical care. Explained that it is tough or us to know how to Tx him w/o getting Dx based on tests. -Appreciate ID recs. Discussed w/ ID. -FU BCx - prelim negative. -R hip fluid studies negative for infection. RLE DVT PAF -normally on Eliquis. Switched to Lovenox during hospitalization. Thrombocytopenia, stable Anemia, stable CKD St 2, baseline Cr 1.0 -stable. 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 -Requesting Psych consult and cognitive eval. Discussed w/ Psychiatrist Randi Brito who met pt today and will revisit to complete assessment tomorrow. -Request his MDPOA Velia to come to the hospital to provide input, as pt seems to get along well w/ her and may be more agreeable to medical plan if she reasons with him. VTE prophylaxis: Lovenox Code Status: Limited resuscitation Status: inpt for > 2 midnight stay. Disposition: med surge. ____ SUBJECTIVE: Today pt feels better after he took a shower. Per ID and RN, he has been difficult to work w/ and keeps pulling out IVs -- has overall been unreasonable and easily angered. OBJECTIVE: Physical Exam: General: The patient is an elderly M who is alert and in no acute distress. HEENT: normocephalic, extraocular movements intact, conjunctivae clear. Mucous membranes moist. Neck: trachea midline, no visible masses. CV: +S1/S2, RRR, no MRG. Resp: unlabored, CTAB no RRW. Abd: soft. Very obese distended abdomen. Musculoskeletal: Normal muscle tone/bulk. Neuro: cranial nerves II XII grossly intact. Intact gross motor and sensory function. Psych: irritable mood. Appropriate affect. Skin: No pallor. No petechiae. +erythema RLE. Heme/lymph: No pitting peripheral edema at bilateral lower legs (mid pretibial) . Labs/Imaging/Other Tests: Personally reviewed/interpreted. Hip XR - No acute fracture or dislocation. Repeat BCx - prelim negative. Objective: Vital Signs Temp Pulse Resp BP Pulse Ox 36.6 C 69 20 125/45 H 95 07/17/18 08:00 07/17/18 08:00 07/17/18 08:00 07/17/18 08:00 07/17/18 08:00 Microbiology 07/14/18 10:28 Gram Stain - Final Hip - Aspirate 07/16/18 10:10 Gram Stain - Final Leg - Swab Body Fluid Culture - Final Laboratory Results 07/15/18 07:50 07/15/18 07:50 07/16/18 07/17/18 07/18/18 05:59 05:59 05:59 Intake Total 1362 Output Total 602 550 200 Balance 760 -550 -200 - Time Spent With Patient Time Spent with Patient: greater than 35 minutes Time Spent with Patient: Greater than 35 minutes spent on this patients care, greater than 50% of time spent counseling, educating, and coordinating care regarding the above mentioned plan. ICD10 Worksheet Patient Problems: Problems Problem Status Onset DVT (deep venous thrombosis) Acute Fever Acute Hypoxia Acute Pneumonia Acute Acute kidney injury Acute Atrial flutter Acute Cervical strain Acute Dehydration Acute Displaced fracture of right femoral neck Acute Elevated troponin Acute Head injury Acute Hypoxemia Acute Nausea, vomiting, and diarrhea Acute Palliative care encounter Acute Pancreatitis Acute Pulmonary embolus Acute Toe infection Acute Vomiting Acute chronic disease mgmt/transitional care Acute
[2018-07-17] MEDS: PHENAZOPYRIDINE HCL 200 MG TAB PO SCH (21:11)
[2018-07-18] MEDS: TAMSULOSIN HCL 0.4 MG CAP PO SCH (10:12)
[2018-07-18] MEDS: PHENAZOPYRIDINE HCL 200 MG TAB PO SCH ×3 (10:12→18:56)
[2018-07-18] MEDS: ENOXAPARIN 100 MG/ML SYR SC SCH ×2 (10:13→22:58)
[2018-07-18] MEDS: SENNOSIDES/DOCUSATE SODIUM TAB PO SCH ×2 (10:23→21:33)
[2018-07-18] MEDS: NYSTATIN SUSP 500000 UNIT/5 ML UD LIQ PO SCH ×4 (12:21→22:59)
--- NOTE | 2018-07-18 12:58 | HOSPPROG ---
Hospitalist Progress Note Assessment/Plan: The patient is a 83-year-old male with PMH right hip replacement, AFib, AAA, diabetes who was admitted for fever and streptococcal bacteremia (unclear if contaminant). Patient currently in rehab at [facility] # heel/leg wounds with cellulitis. Minimal pain, unable for imaging with MRI due to patient refusal. Doubt osteomyelitis most likely cellulitis from venous stasis wounds * On Levaquin orally till July 28 * Continue wound care, appreciate ID recs # bacteremia, unclear if contaminant or true however patient with hip replacement and high risk for superinfection. * Follow-up blood cultures negative * 2 weeks Levaquin post follow-up blood cultures, July 28 * Negative culture on hip aspiration # history of right lower extremity DVT # Anemia, anemia since his hip fracture in May prior to that his baseline was around 12 currently he is at 8. He has had no improvement in his blood counts since surgery. * Check iron studies and vitamin B12 * May need further evaluation as outpatient # paroxysmal AFib, normally on Eliquis changed to Lovenox this hospitalization # questions psychiatric disorder. Psychiatry consult ordered yesterday awaiting assessment. He does have an MD YAMILETH, Velia whom takes care of most of his financial issues as well per his report. # disposition: Patient currently lives in an apartment in low-income housing. Refusing rehab. Will discuss with case management who will contact his MD CARSON to see what his true living situation is and what sources he may need on discharge VTE prophylaxis: Lovenox Code Status: Limited resuscitation Subjective: Patient new to me and chart reviewed. Denies any pain in his lower extremities but knows they look bad denies chest pain shortness of breath. Did get a little lightheaded while walking to the bathroom today Objective: Vital Signs Temp Pulse Resp BP Pulse Ox 36.6 C 47 L 18 138/55 H 95 07/18/18 07:45 07/18/18 07:45 07/18/18 07:45 07/18/18 07:45 07/18/18 07:45 Microbiology 07/16/18 10:10 Gram Stain - Final Leg - Swab Body Fluid Culture - Final 07/14/18 10:28 Gram Stain - Final Hip - Aspirate Laboratory Results 07/15/18 07:50 07/15/18 07:50 07/17/18 07/18/1818 05:59 05:59 05:59 Intake Total 100 Output Total 550 530 200 Balance -550 -430 -200 - Physical Exam Constitutional: chronically ill appearing, unkempt Eyes: PERRL Ears, Nose, Mouth, Throat: moist mucous membranes Cardiovascular: systolic murmur, irregularly irregular Respiratory: no respiratory distress, clear to auscultation Gastrointestinal: soft, non-tender abdomen Genitourinary: no bladder fullness Skin: erythema, other (Venous stasis ulcers and edema lower extremities) Musculoskeletal: generalized weakness Psychiatric: interacting appropriately ICD10 Worksheet Patient Problems: Problems Problem Status Onset DVT (deep venous thrombosis) Acute Acute kidney injury Acute Fever Acute Hypoxia Acute chronic disease mgmt/transitional care Acute Nausea, vomiting, and diarrhea Acute Pancreatitis Acute Dehydration Acute Hypoxemia Acute Head injury Acute Cervical strain Acute Pulmonary embolus Acute Elevated troponin Acute Palliative care encounter Acute Pneumonia Acute Toe infection Acute Atrial flutter Acute Vomiting Acute Displaced fracture of right femoral neck Acute
--- NOTE | 2018-07-18 16:51 | PCMIDPN ---
Assessment/Plan: Assessment: Group C/G streptococcal bacteremia probably secondary to right lower extremity cellulitis. Thankfully evaluation of his prosthetic hip showed no signs of prosthesis infection. Plan to continue antibiotic through 07/28/2018. Patient can continue on Levaquin 750 mg daily for this indication. Plan: 1. Continue oral Levaquin daily through 07/28/2018. New 07/18/18 16:49 Subjective: Patient is resting in his chair in his hospital room. He has no new complaint. He certainly appears more spirits did than he did 6 days ago. Objective: Levaquin # 1 Vital Signs Temp Pulse Resp BP Pulse Ox 36.6 C 68 16 125/69 H 98 07/18/18 15:38 07/18/18 15:38 07/18/18 15:38 07/18/18 15:38 07/18/18 15:38 Microbiology 07/16/18 10:10 Gram Stain - Final Leg - Swab Body Fluid Culture - Final 07/14/18 10:28 Gram Stain - Final Hip - Aspirate Laboratory Results 07/15/18 07:50 07/18/18 07:00 07/17/18 07/18/18 07/19/18 05:59 05:59 05:59 Intake Total 100 Output Total 550 530 200 Balance -550 -430 -200 ESR 32 MM/HR (0-20) H 07/13/18 04:39 C-Reactive Protein 167.4 mg/L (<10.0) H 07/13/18 04:39 - Physical Exam General Appearance: WD/WN, alert, no apparent distress, non-toxic Respiratory: lungs clear, normal breath sounds, No respiratory distress Cardiac/Chest: regular rate, rhythm, No tachycardia Skin: normal color, warm/dry, No rash Neuro/Psych: alert, normal mood/affect, oriented x 3 ICD10 Worksheet Patient Problems: Problems Problem Status Onset DVT (deep venous thrombosis) Acute Fever Acute Hypoxia Acute Pneumonia Acute Acute kidney injury Acute Atrial flutter Acute Cervical strain Acute Dehydration Acute Displaced fracture of right femoral neck Acute Elevated troponin Acute Head injury Acute Hypoxemia Acute Nausea, vomiting, and diarrhea Acute Palliative care encounter Acute Pancreatitis Acute Pulmonary embolus Acute Toe infection Acute Vomiting Acute chronic disease mgmt/transitional care Acute
[2018-07-19] MEDS: PHENAZOPYRIDINE HCL 200 MG TAB PO SCH ×3 (08:57→19:17)
[2018-07-19] MEDS: TAMSULOSIN HCL 0.4 MG CAP PO SCH (08:57)
[2018-07-19] MEDS: SENNOSIDES/DOCUSATE SODIUM TAB PO SCH ×2 (09:03→20:22)
[2018-07-19] MEDS: ENOXAPARIN 100 MG/ML SYR SC SCH ×2 (09:03→20:22)
[2018-07-19] MEDS: NYSTATIN SUSP 500000 UNIT/5 ML UD LIQ PO SCH ×3 (12:04→20:22)
--- NOTE | 2018-07-19 15:38 | ASMTCMCOM ---
CM Note CM Note Notes: CM met with patient, discussed discharge to [facility] for rehab and to address cellulitis. Patient states he is not really interested in going to [facility] and also states CM should follow up an call Velia [phone]. We discussed the importance of a safe transition and holding a goal of going home. Patient focused conversation on how he is paying $329 + utilities and his car payment. CM will follow up with Velia. CM call to Velia [phone], she states she understands the importance/value of him going to rehab at [facility]. She shares they are connected to [facility] and connecting to LTC. Velia is also attempting to connect with his sister who he has been estranged from for about 15 years in attempts to get him family help. She is hopeful he will be approved for LTC Medicaid to address his needs. Velia states she understands [facility] needs SNF care. Velia will be available to discuss discharge needs if necessary tomorrow at [phone]. CM discussed with RN, could likely discharge tomorrow with confirmation from [facility]. CM to follow. D/C Plan: [facility] when accepted Date Signed: 07/19/2018 03:38 PM Electronically Signed By:Tere Clifton
--- NOTE | 2018-07-19 15:38 | HOSPPROG ---
Hospitalist Progress Note Assessment/Plan: The patient is a 83-year-old male with PMH right hip replacement, AFib, AAA, diabetes who was admitted for fever and streptococcal bacteremia (unclear if contaminant). Patient currently in rehab at [facility] for hip fracture prior to this admit. # heel/leg wounds with cellulitis. Minimal pain, unable for imaging with MRI due to patient refusal. Doubt osteomyelitis most likely cellulitis from venous stasis wounds * On Levaquin orally till July 28 * Continue wound care, appreciate ID recs # bacteremia, unclear if contaminant or true however patient with hip replacement and high risk for superinfection. * Follow-up blood cultures negative * 2 weeks Levaquin post follow-up blood cultures, July 28 * Negative culture on hip aspiration # history of right lower extremity DVT after hip fracture on Eliquis at [facility] and changed to lovenox in hospital. # Anemia, anemia since his hip fracture in May prior to that his baseline was around 12 currently he is at 8. He has had no improvement in his blood counts since surgery. * Check iron studies and vitamin B12, pt refused blood draw * May need further evaluation as outpatient # paroxysmal AFib, on anticoagulation and currently rate controlled # questions psychiatric disorder. More likely he has some cognitive impairment which is worse since the anesthesia with hip fracture and underlying personality disorder. Will check Speech cog eval and consider psyche evaluation. Discussed with Dr. Randi Brito, but I am not sure what she could add at this time. She will check in if we need assistance. # disposition: Patient has an apartment in low-income housing that he would like to go back to however it is unclear whether he is cognitively able to do this. He certainly would benefit from more rehab and physical therapy has confirm this. I will get a speech cog eval ordered and depending on their evaluation could consider psychiatric evaluation as well. CM working on rehab at this time VTE prophylaxis: Lovenox Code Status: Limited resuscitation Subjective: refusing PT, last PT eval they recommended SNF Objective: Vital Signs Temp Pulse Resp BP Pulse Ox 36.7 C 68 20 127/70 H 97 07/19/18 15:26 07/19/18 15:26 07/19/18 15:26 07/19/18 15:26 07/19/18 15:26 Microbiology 07/16/18 10:10 Gram Stain - Final Leg - Swab Body Fluid Culture - Final Wound Culture - Final 07/14/18 10:28 Gram Stain - Final Hip - Aspirate Laboratory Results 07/15/18 07:50 07/18/18 07:00 07/18/18 07/19/18 07/20/18 05:59 05:59 05:59 Intake Total 100 600 468 Output Total 530 600 Balance -430 0 468 - Physical Exam Constitutional: no apparent distress, chronically ill appearing Ears, Nose, Mouth, Throat: moist mucous membranes Cardiovascular: regular rate and rhythym Respiratory: no respiratory distress Gastrointestinal: normoactive bowel sounds Genitourinary: no bladder fullness Skin: warm Musculoskeletal: generalized weakness Psychiatric: interacting appropriately ICD10 Worksheet Patient Problems: Problems Problem Status Onset DVT (deep venous thrombosis) Acute Acute kidney injury Acute Fever Acute Hypoxia Acute chronic disease mgmt/transitional care Acute Nausea, vomiting, and diarrhea Acute Pancreatitis Acute Dehydration Acute Hypoxemia Acute Head injury Acute Cervical strain Acute Pulmonary embolus Acute Elevated troponin Acute Palliative care encounter Acute Pneumonia Acute Toe infection Acute Atrial flutter Acute Vomiting Acute Displaced fracture of right femoral neck Acute
[2018-07-20] MEDS: CEPACOL LOZENGE PO PRN ×3 (03:38→16:54)
[2018-07-20] MEDS: NYSTATIN SUSP 500000 UNIT/5 ML UD LIQ PO SCH ×4 (06:23→16:54)
[2018-07-20] MEDS: PHENAZOPYRIDINE HCL 200 MG TAB PO SCH ×2 (08:26→13:20)
[2018-07-20] MEDS: TAMSULOSIN HCL 0.4 MG CAP PO SCH (08:42)
[2018-07-20] MEDS: SENNOSIDES/DOCUSATE SODIUM TAB PO SCH (10:57)
--- NOTE | 2018-07-20 12:14 | PCMIDPN ---
Assessment/Plan: 1. Group C/G bacteremia in patient with recent right hip arthroplasty June 08 : As per my previous notes, hip is not infected. Desiree of bacteremia is almost certainly right lower extremity cellulitis, which has improved. Patient has chronic venous stasis, and a DVT in his right lower extremity, so his right lower extremity will look chronically abnormal---however, cellulitic component is improved as manifested by decreased calor and rubor. He will need wound care at [facility], and I have spoken with the social workers trying to arrange for this. Patient still refuses any intravenous form of therapy, and does not even have a resting IV in place. Continue levofloxacin, stop date July 28 or 2 weeks after negative blood cultures. Over 25 min spent with this patient today. Subjective: Patient still quite grumpy. Does not want me to remove dressing on right lower extremity. Wants to"get out of here."Apparently was in the chair all night, and urinated all over himself. Presently in the recliner. Objective: Levaquin 750 mg p. O. Daily, stop date July 28 No fevers Vital Signs Temp Pulse Resp BP Pulse Ox 36.3 C 90 18 127/46 H 96 07/20/18 07:31 07/20/18 07:31 07/20/18 07:31 07/20/18 07:31 07/20/18 07:31 Microbiology 07/16/18 10:10 Gram Stain - Final Leg - Swab Body Fluid Culture - Final Wound Culture - Final Laboratory Results 07/15/18 07:50 07/18/18 07:00 07/19/18 07/20/18 07/21/18 05:59 05:59 05:59 Intake Total 600 468 Output Total 600 850 Balance 0 -382 ESR 32 MM/HR (0-20) H 07/13/18 04:39 C-Reactive Protein 167.4 mg/L (<10.0) H 07/13/18 04:39 No new microbiology Hip cultures remain negative - Physical Exam General Appearance: alert, no apparent distress Extremities: other (Right lower extremity: Still has a few blisters in the pretibial area, with chronic venous stasis changes and erythema, but the erythema has improved, and his leg is no longer warmer than the left. The swelling has also improved. Heel is wrapped in the patient would not let me take this off. Still has some puffiness along the dorsum of his foot.) ICD10 Worksheet Patient Problems: Problems Problem Status Onset DVT (deep venous thrombosis) Acute Fever Acute Hypoxia Acute Pneumonia Acute Acute kidney injury Acute Atrial flutter Acute Cervical strain Acute Dehydration Acute Displaced fracture of right femoral neck Acute Elevated troponin Acute Head injury Acute Hypoxemia Acute Nausea, vomiting, and diarrhea Acute Palliative care encounter Acute Pancreatitis Acute Pulmonary embolus Acute Toe infection Acute Vomiting Acute chronic disease mgmt/transitional care Acute
[2018-07-20] MEDS: ENOXAPARIN 100 MG/ML SYR SC SCH (12:40)
--- NOTE | 2018-07-20 14:52 | ASMTLACE ---
LACE Length of stay for Answers: 7-13 days current admission Acuity / Level of Answers: Yes Care: Did the patient have an inpatient admission? Comorbidities - select Answers: Diabetes (uncontrolled or all that apply controlled) History of falls Peripheral vascular disease Other Notes: Hx of DVT; AFib # of Emergency department Answers: 3-4 visits in the last 6 months Score: 17 Date Signed: 07/20/2018 02:51 PM Electronically Signed By:LYDIA Loya
[2018-07-20 15:39] VITALS: BP 99/60
--- NOTE | 2018-07-20 16:44 | PDIAF ---
- Diagnosis Diagnosis: Bacteremia Code Status: Limited Resuscitation - Medication Management Snf Antibiotic Stop Date: 07/29/18 Additional Medication Instructions: Start Levaquin on 07/21. Last dose on 07/28. Discharge Medications: electronically signed and located in the Home Medication List. - Orders Services needed: Physical Therapy, Occupational Therapy, Speech Language Pathologist Isolation Type: None Diet Recommendation: no restrictions on diet Diet Texture: Regular Texture Diet Additional Instructions: Please follow up within 3- 4 weeks of discharge with outpatient [facility] if you continue to have issues with your wounds: You may reach them at [phone] for an appointment and continued management of your wounds. Please call them paolo to schedule your appointment as they fill up quickly. If before that time you have any issues, please follow up with your PCP. Change dressings to right anterior lower leg every 2 days and prn. Apply Atractain Cream liberally to all areas of feet except between toes that dont have mepilex foam dressings. 1. Clean with ns and gauze 2. Skin prep leonor wound 3. Silvasorb gel to wound bed 4. Cover with Mepilex white foam. 5. Secure lightly with kerlix and netting. Shelly Chaparro RN Wound Care Team - Follow Up Care Current Providers and Referrals: CELE MORENO [Primary Care Provider] - As per Instructions
--- NOTE | 2018-07-20 16:56 | ASDISCHSUM ---
Discharge Information Plan Status:SNF Medically Cleared to Leave:07/19/2018 Discharge Date:07/19/2018 CM D/C Disposition: ADT D/C Disposition:Residential Facility Projected Discharge Date:07/20/2018 11:00 AM Transportation at D/C: Discharge Delay Reason: Follow-Up Date:07/20/2018 11:00 AM Discharge Slot: Final Diagnosis: Placement Information Referral Type:*Residential/SNF Referral ID:[id number] Provider Name:Melissa Werner [place] Address 1:[address] Address 2: City:[place] Selection Factors: State:[place] Patient Contact Information Contact Name:BIANCA Relationship:Friend Address: Work Phone: [facility]:[place] Alternate Phone: [facility]/Zip Code:[place] Email: Financial Information Financial Class:Medicare Primary Plan Desc:MEDICARE INPATIENT Primary Plan Number:[id number] Secondary Plan Desc: Secondary Plan Number: Assessment Information LACE LACE Length of stay for Answers: 7-13 days current admission Acuity / Level of Answers: Yes Care: Did the patient have an inpatient admission? Comorbidities - select Answers: Diabetes (uncontrolled or all that apply controlled) History of falls Peripheral vascular disease Other Notes: Hx of DVT; AFib # of Emergency department Answers: 3-4 visits in the last 6 months Score: 17 Date Signed: 07/20/2018 02:51 PM Electronically Signed By:LYDIA Loya [facility] CLAUDIA Progress Note CM Note CM Note Notes: Pt known to [facility] in from [place] for pneumonia. Pt last d/c to [facility] 07/01/18 where he is for rehab. Pt JACOB is friend Velia Fragoso. Pt was SBA and now requires room with lift. Pt may need Medicaid LTC, which [facility] will have to help with. Pt applied for Medicaid his May admission at [facility]. PT/OT ordered. Updates sent to . Pt to return to when medically stable. D/c plan of care: Return to [facility] Date Signed: 07/13/2018 11:54 AM Electronically Signed By:YANNICK Gandhi [facility] CM Progress Note CM Note CM Note Notes: Recieved call from Jose at , wanting updates on and to find out if pt will be returning. CLAUDIA sent updates via [employer], pt will likely need IV abx for a foot infection. Pt to have MRI tomorrow, CLAUDIA w/f. DC Plan: SNF/ [facility] Date Signed: 07/15/2018 03:10 PM Electronically Signed By:Mary Cobb RN [facility] CM Progress Note CM Note CM Note Notes: Met with pt to discuss rehab. Pt was at [place], per Quirino at , pt did not want to pay the post 21 day copay. CLAUDIA then spoke to Daysi, she is working with pt, pt's friend Velia, and . [facility] Medicaid application has been submitted, and copy faxed to Pt still needs SNF, he remains a 2 person assist and will now need IV abx. DC Plan: [facility] Date Signed: 07/16/2018 02:28 PM Electronically Signed By:Mary Cobb RN [facility] Progress Note CM Note CM Note Notes: CM spoke to friend Velia Fragoso and left a message with Crystal, from [place], re progress with pt. Pt had agreed to an MRI, but once on the table by the machine appeared to panic and refused MRI. He again pulled his IV out, though denies it. Pt's vascillating between being cooperative with treatment and refusing treatment is interfering with his ability to receive the best possible care. Due to this a psychiatric consult to both look at potential more successful interventions and decisionality has been requested. CM to follow. D/C Plan: Anticipate [place] Date Signed: 07/17/2018 10:38 AM Electronically Signed By:Felipa Weldon [facility] Progress Note CM Note CM Note Notes: CM met with patient, discussed discharge to [place] for rehab and to address cellulitis. Patient states he is not really interested in going to [place] and also states CM should follow up an call Velia [phone]. We discussed the importance of a safe transition and holding a goal of going home. Patient focused conversation on how he is paying $329 + utilities and his car payment. CM will follow up with Velia. CM call to Velia [phone], she states she understands the importance/value of him going to rehab at [place]. She shares they are connected to Narcisa and connecting to LTC. Velia is also attempting to connect with his sister who he has been estranged from for about 15 years in attempts to get him family help. She is hopeful he will be approved for LTC Medicaid to address his needs. Velia states she understands [facility] needs SNF care. Velia will be available to discuss discharge needs if necessary tomorrow at [phone]. CM discussed with RN, could likely discharge tomorrow with confirmation from [place]. CM to follow. D/C Plan: [place] when accepted Date Signed: 07/19/2018 03:38 PM Electronically Signed By:Tere Clifton Case Management Discharge Plan Note Case Management Discharge Discharge Order Complete? Answers: Yes Patient to Obtain Answers: Other Notes: [place] SNF Medications Transportation Arranged Answers: Other Notes: [facility] W/C Transport will Pick (Date 07/20/2018 05:30 PM & Time) [place] Complete Answers: No Case Management Transport Answers: No Form Complete Faxed Final Orders Answers: Yes Agency/Facility Transfer Answers: Yes Report Printed & Faxed to Receiving Agency Family Notified Answers: Yes Discharge Comments Notes: Pts case discussed w/ Dr. Hi and Dr. Perera. Pt is being d/c today back to [place]. CM called JACOB Gunn and notified her of the d/c. DC orders sent. CM provided DREA Escobedo w/ phone number to give report. CM available for changes. Plan: [place] Date Signed: 07/20/2018 04:55 PM Electronically Signed By:LYDIA Loya Intervention Information Intervention Type:*IM-Signed Date of Service:07/20/2018 04:14 PM Patient Type:Inpatient Staff Member:Antionette Lomeli Hours: Discipline: Severity: Comment:
--- NOTE | 2018-07-20 19:21 | GDS ---
DISCHARGE DIAGNOSES: 1. Streptococcal bacteremia. 2. Right lower extremity cellulitis. 3. Recently diagnosed right lower extremity deep vein thrombosis prior to this hospitalization. HISTORY OF PRESENT ILLNESS: The patient is an 83-year-old gentleman with a recent history of right h ip fracture status post surgical repair complicated by a right lower extremity deep vein thrombosis, who was brought to the [facility] Emergency Room on 07/13/2018, with complaints of fe chay. He had blood cultures obtained and was started on empiric antibiotics for a right lower extremi ty cellulitis. Infectious Disease was also consulted on his case. Initial blood cultures were posit wayne for Streptococcus dysgalactiae. Repeat blood cultures from 07/12 and 07/15 were all negative. O verall, patient has been improving with oral Levaquin and topical wound care. It is recommended that he continue oral Levaquin until July 28, 2018, which on that day would be his last dose. HOSPITAL COURSE BY PROBLEM: Bacteremia: Resolved. Secondary to streptococcal bacteria. The patien t is to complete Levaquin, and his last dose will be on 07/28/2018. A prescription was sent to his [facility] pharmacy. Cellulitis: Right lower extremity. Continue with topical wound care and follow up with [facility] as well as current antibiotic therapy. Deep vein thrombosis: Right lower extremity. The patient was placed on Lovenox here in the hospital , but the injections were declined by the patient, so Eliquis was resumed. He was on Eliquis prior t o coming into the hospital. Anemia: Suspect recent blood losses from surgery. Stable at 8.0 on the day of discharge. Atrial fibrillation: Paroxysmal. No current rate control. No tachycardia observed during this hosp italization. The patient was on Eliquis. Hypertension: Continue amlodipine 5 mg daily. Questionable mild cognitive impairment: Continue to work with Speech therapy. BPH: Flomax. DVT prophylaxis: Patient is anticoagulated. DISPOSITION: The plan is for transfer back to [place] this evening where he was residing prior to coming into the hospital. I was just reported that we were having some difficulty receiving the dis charge orders and medication list, so this may be deferred until tomorrow potentially if not resolved . DISCHARGE PHYSICAL EXAMINATION: VITAL SIGNS: Temperature 36.3, blood pressure 127/46, heart rate 90 , respirations 18, sating 96% on room air. GENERAL: Patient appeared comfortable. He was awake, al ert, conversant in no acute distress. HEART: Regular. No murmurs appreciated. LUNGS: Clear on ausc ultation with normal respiratory effort. ABDOMEN: Soft, nontender, nondistended. : Le cathete r in place with slightly orange color. EXTREMITIES: Right lower extremity bandage appeared clean and intact without any malodor, mildly warm as compared to the left lower extremity. Suspect diminishin g erythema. LABORATORY STUDIES: Notable studies: White blood cell count is 4, hemoglobin 8, platelets 149. Sod ium 140, potassium 4.2, chloride 107, bicarb 24, BUN 28, creatinine of 1.1, glucose of 105, TSH 1.85. Vitamin B12 is 546. DISCHARGE MEDICATIONS: 1. Acetaminophen 1000 mg t.i.d. 2. Amlodipine 5 mg daily. 3. Eliquis 5 mg twice a day. 4. Levaquin 750 mg daily for the next 8 days. 5. MiraLAX 17 g daily. 6. Sennosides docusate 1 tablet twice a day. 7. Flomax 0.4 mg daily. 8. Tramadol 50 mg every 6 hours as needed. DISCHARGE INSTRUCTIONS: A followup visit with Dr. Mccormack is recommended as his primary provider and also with Dr. Chung Vivar, infectious disease. A followup visit with [facility] has also b een recommended within 3-4 weeks of discharge. TIME SPENT: 40 minutes of time dedicated to discharge efforts today. /[id number]/MODL
== END 2018-07-20 19:31 | DRG 603 ==
LOC: EDUNIT# → F3N 07-13 01:40 → F3E 07-14 17:14
PROVIDERS: ADMIT Family Medicine; ATTEND Family Medicine
PROC: 0S993ZX Drainage of Right Hip Joint, Percutaneous Approach, Diagnostic (ICD-10-PCS; principal; 2018-07-14)
DX: L03.115 Cellulitis of right lower limb (principal); R78.81 Bacteremia; B95.4 Other streptococcus as the cause of diseases classified elsewhere; I48.0 Paroxysmal atrial fibrillation; I82.4Z1 Acute embolism and thrombosis of unspecified deep veins of right distal lower extremity; G31.84 Mild cognitive impairment of uncertain or unknown etiology; R09.02 Hypoxemia; B37.0 Candidal stomatitis; L89.619 Pressure ulcer of right heel, unspecified stage; L89.629 Pressure ulcer of left heel, unspecified stage; E11.9 Type 2 diabetes mellitus without complications; I12.9 Hypertensive chronic kidney disease with stage 1 through stage 4 chronic kidney disease, or unspecified chronic kidney disease; N18.3 Chronic kidney disease, stage 3 (moderate); N40.1 Benign prostatic hyperplasia with lower urinary tract symptoms; R33.8 Other retention of urine; D64.9 Anemia, unspecified; M48.00 Spinal stenosis, site unspecified; M21.371 Foot drop, right foot; I71.4 Abdominal aortic aneurysm, without rupture; Z96.643 Presence of artificial hip joint, bilateral; Z91.81 History of falling
CPT/HCPCS: 82607-90; 92507-GN; 92523-GN; 92610-GN; 96365; 97116-GP; 97162-GP; 97166-GO; 97530-GP; 97535-GO; G8978-GP-CL; G8979-GP-CJ; G8987-GO-CL; G8988-GO-CJ; G8996-GN-CH; G8997-GN-CH; G8998-GN-CH; G9165-GN-CK; G9165-GN-CL; G9166-GN-CK; G9167-GN-CK; J0696; J1650; J1956; Q9967

== ENCOUNTER 2018-09-06 07:51 | Inpatient (IN) | payer MEDICAID, OTHER ==
[2018-09-06] MEDS ORDERED: NS 1,000 ML IV ONE ×3 (07:58→09:03)
--- NOTE | 2018-09-06 08:02 | EDPHY ---
H & P Time Seen by Provider: 09/06/18 07:58 HPI/ROS: CHIEF COMPLAINT: Worsening cough HISTORY OF PRESENT ILLNESS: [facility] resident, history of atrial fibrillation on Eliquis. Presents with worsening cough and fever. EMS reports him having an oxygen saturation of 72% and being tachycardic. Patient is moaning and is able to intermittently respond appropriately to commands but appears confused. Further history and review of systems unable because of the patient's mental status. PAST MEDICAL HISTORY: Records from [facility] include hypertension, type 2 diabetes, atrial fibrillation, chronic kidney disease, right hip fracture, vascular dementia, left hip fracture, abdominal aortic aneurysm, peripheral vascular disease, spinal stenosis Social history: Resident of [facility]. General Appearance: Patient is alert and saying "help me." Eyes: No scleral icterus. ENT, Mouth: Dry mucous membranes. Respiratory: Bilateral coarse rhonchi and tachypnea. Cardiovascular: Tachycardic without murmur. Gastrointestinal: Abdomen is soft and non tender. Neurological: Patient has spontaneous movement of all 4 extremities, he is intermittently cooperative with commands but in general appears confused. Skin: Patient has an open wound on his right heel and medial malleolus but no surrounding erythema or lymphangitis. Musculoskeletal: No peripheral edema. Psychiatric: Moderately agitated, otherwise unable to cooperate with exam Emergency Department course/MDM: Patient has an attached most form which is dated 07/31/2018 and he is full cor. More likely to have pneumonia giving him his a full clinical picture with fever tachycardia and hypoxemia. Sepsis screening with lactate, IV fluid bolus, chest x-ray and EKG. Unlikely to be pulmonary embolism in a patient who is on Eliquis. 901: Left lower lung consolidation on x-ray, IV antibiotics to cover for possible HCAP, sepsis fluid bolus and repeat lactate. Smoking Status: Former smoker Constitutional: Initial Vital Signs Temperature (C) 38.9 C H 09/06/18 07:58 Heart Rate 138 H 09/06/18 07:58 Respiratory Rate 28 H 09/06/18 07:58 Blood Pressure 181/101 H 09/06/18 07:58 O2 Sat (%) 82 L 09/06/18 07:58 O2 Delivery Mode Nasal Cannula O2 (L/minute) 4 Allergies/Adverse Reactions: Tetracyclines Allergy (Intermediate, Verified 07/12/18 23:10) Vomiting azithromycin Allergy (Unknown, Verified 07/12/18 23:10) Itching nitrofurantoin [From Macrobid] Allergy (Unknown, Verified 07/12/18 23:10) nitrofurantoin macrocrystalline [From Macrobid] Allergy (Unknown, Verified 07/12 23:10) Sulfa (Sulfonamide Antibiotics) Allergy (Unknown, Verified 07/12/18 23:10) Home Medications: Medication Instructions Recorded amLODIPine BESYLATE [Norvasc 5 mg 5 mg PO DAILY #30 tab 08/04/16 (*)] Apixaban [Eliquis] 5 mg PO BID 07/15/18 Polyethylene Glycol 3350 [Miralax 17 gm PO DAILY PRN 07/15/18 17 gm (*)] Sennosides/Docusate Sodium 1 each PO BID 07/15/18 [Senna-S Tablet] Tamsulosin HCl [Flomax 0.4 MG (*)] 0.4 mg PO DAILY 07/15/18 Bisacodyl [Dulcolax] 10 mg RC DAILY PRN 09/06/18 Cholecalciferol Vit D3 [Vitamin D3 50,000 unit PO Q7D 09/06/18 (*)] Ferrous Sulfate [Ferrous Sulf 325 325 mg PO BID 09/06/18 MG (*)] Magnesium Hydroxide [Milk of 30 ml PO DAILY PRN 09/06/18 Magnesia] guaiFENesin [Mucinex 600 MG (*)] 600 mg PO BID 09/06/18 Medical Decision Making - Diagnostics EKG Interpretation: 12-lead EKG interpreted by me; official reading is in computer system. My interpretation is atrial flutter rate 124, long QT. No acute ischemic changes. Imaging Results: Imaging Impressions Chest X-Ray 09/06/18 07:58 Impression: Congestive heart failure with moderate cardiac enlargement and pulmonary vascular prominence centrally. Central bronchitis. Imaging: I viewed and interpreted images myself Differential Diagnosis: Differential for fever and cough considered including but not limited to pneumonia, influenza, sepsis, pulmonary embolism, bacteremia. Consult/Admit Bed Type: [place] [id number] - Data Points Laboratory Results: Laboratory Results 09/06/18 08:10 09/06/18 08:10 09/06/18 09/06/18 09/06/18 09:00 08:10 08:10 WBC RBC Hgb Hct MCV MCH MCHC RDW Plt Count MPV Neut % (Auto) Lymph % (Auto) Wayne % (Auto) Eos % (Auto) Baso % (Auto) Nucleat RBC Rel Count Absolute Neuts (auto) Absolute Lymphs (auto) Absolute Monos (auto) Absolute Eos (auto) Absolute Basos (auto) Absolute Nucleated RBC Immature Gran % Immature Gran # RBC/WBC/PLT Morphology Platelet Estimate PT INR APTT VBG Lactic Acid 1.8 mmol/L mmol/L (0.7-2.1) Sodium Potassium Chloride Carbon Dioxide Anion Gap BUN Creatinine Estimated GFR Glucose Calcium Total Bilirubin Cancelled Pending Conjugated Bilirubin Cancelled Pending Unconjugated Bilirubin Cancelled Pending Icterus Index Cancelled AST Cancelled Pending ALT Cancelled Pending Alkaline Phosphatase Cancelled Pending NT-Pro-B Natriuret Pep 6620 pg/mL H pg/mL (0-450) Total Protein Cancelled Pending Albumin Cancelled Pending Procalcitonin Pending Specimen Hemolysis Cancelled 09/06/18 09/06/18 09/06/18 08:10 08:10 08:10 WBC 12.27 10^3/uL H 10^3/uL (3.80-9.50) RBC 4.04 10^6/uL L 10^6/uL (4.40-6.38) Hgb 9.4 g/dL L g/dL (13.7-17.5) Hct 31.0 % L % (40.0-51.0) MCV 76.7 fL L fL (81.5-99.8) MCH 23.3 pg L pg (27.9-34.1) MCHC 30.3 g/dL L g/dL (32.4-36.7) RDW 17.2 % H % (11.5-15.2) Plt Count 269 10^3/uL 10^3/uL (150-400) MPV 9.9 fL fL (8.7-11.7) Neut % (Auto) 93.1 % H % (39.3-74.2) Lymph % (Auto) 2.8 % L % (15.0-45.0) Wayne % (Auto) 3.4 % L % (4.5-13.0) Eos % (Auto) 0.0 % L % (0.6-7.6) Baso % (Auto) 0.1 % L % (0.3-1.7) Nucleat RBC Rel Count 0.0 % % (0.0-0.2) Absolute Neuts (auto) 11.42 10^3/uL H 10^3/uL (1.70-6.50) Absolute Lymphs (auto) 0.34 10^3/uL L 10^3/uL (1.00-3.00) Absolute Monos (auto) 0.42 10^3/uL 10^3/uL (0.30-0.80) Absolute Eos (auto) 0.00 10^3/uL L 10^3/uL (0.03-0.40) Absolute Basos (auto) 0.01 10^3/uL L 10^3/uL (0.02-0.10) Absolute Nucleated RBC 0.00 10^3/uL 10^3/uL (0-0.01) Immature Gran % 0.6 % % (0.0-1.1) Immature Gran # 0.07 10^3/uL 10^3/uL (0.00-0.10) RBC/WBC/PLT Morphology TNP Platelet Estimate TNP PT 19.4 SEC H SEC (12.0-15.0) INR 1.62 H (0.83-1.16) APTT 31.6 SEC SEC (23.0-38.0) VBG Lactic Acid Sodium 141 mEq/L mEq/L (135-145) Potassium 4.9 mEq/L mEq/L (3.5-5.2) Chloride 111 mEq/L H mEq/L (97-110) Carbon Dioxide 25 mEq/l mEq/l (22-31) Anion Gap 5 mEq/L L mEq/L (6-14) BUN 25 mg/dL H mg/dL (7-23) Creatinine 1.1 mg/dL mg/dL (0.7-1.3) Estimated GFR > 60 Glucose 117 mg/dL H mg/dL (70-100) Calcium 8.3 mg/dL L mg/dL (8.5-10.4) Total Bilirubin 1.0 mg/dL mg/dL (0.1-1.4) Conjugated Bilirubin Unconjugated Bilirubin Icterus Index AST ALT Alkaline Phosphatase NT-Pro-B Natriuret Pep Total Protein Albumin Procalcitonin Specimen Hemolysis 09/06/18 08:10 WBC RBC Hgb Hct MCV MCH MCHC RDW Plt Count MPV Neut % (Auto) Lymph % (Auto) Wayne % (Auto) Eos % (Auto) Baso % (Auto) Nucleat RBC Rel Count Absolute Neuts (auto) Absolute Lymphs (auto) Absolute Monos (auto) Absolute Eos (auto) Absolute Basos (auto) Absolute Nucleated RBC Immature Gran % Immature Gran # RBC/WBC/PLT Morphology Platelet Estimate PT INR APTT VBG Lactic Acid 2.6 mmol/L H mmol/L (0.7-2.1) Sodium Potassium Chloride Carbon Dioxide Anion Gap BUN Creatinine Estimated GFR Glucose Calcium Total Bilirubin Conjugated Bilirubin Unconjugated Bilirubin Icterus Index AST ALT Alkaline Phosphatase NT-Pro-B Natriuret Pep Total Protein Albumin Procalcitonin Specimen Hemolysis Medications Given: Discontinued Medications Sodium Chloride (Ns) 1,000 mls @ 0 mls/hr IV EDNOW ONE; Wide Open PRN Reason: Protocol Stop: 09/06/18 07:59 Last Admin: 09/06/18 08:00 Dose: 1,000 mls Sodium Chloride (Ns) 1,000 mls @ 0 mls/hr IV EDNOW ONE; Wide Open PRN Reason: Protocol Stop: 09/06/18 07:59 Last Admin: 09/06/18 08:23 Dose: 1,000 mls Cefepime HCl 2 gm/ Sodium (Chloride) 100 mls @ 200 mls/hr IV EDNOW ONE PRN Reason: Protocol Stop: 09/06/18 09:32 Last Admin: 09/06/18 09:26 Dose: 100 mls Sodium Chloride (Ns) 1,000 mls @ 0 mls/hr IV EDNOW ONE; Wide Open PRN Reason: Protocol Stop: 09/06/18 09:04 Last Admin: 09/06/18 09:16 Dose: 1,000 mls Departure - Departure Disposition: [facility] Inpatient Acute Clinical Impression: Severe sepsis, Hypoxemia Condition: Serious
[2018-09-06 08:28] LABS: PLATELET COUNT 269 10^3/uL (150-400)
[2018-09-06 08:36] LABS: INR 1.62 (0.83-1.16); PROTIME(PATIENT) 19.4 SEC (12.0-15.0)
[2018-09-06] MEDS ORDERED: CEFEPIME HCL 2 GM in NS 100 ML IV ONE (09:03)
--- NOTE | 2018-09-06 09:26 | CPEKG ---
Test Reason : OPEN Blood Pressure : / mmHG Vent. Rate : 124 BPM Atrial Rate : 119 BPM P-R Int : 174 ms QRS Dur : 095 ms QT Int : 345 ms P-R-T Axes : 106 -49 088 degrees QTc Int : 496 ms Atrial flutter Left axis deviation Borderline ST depression, lateral leads Prolonged QT interval Confirmed by Christiano Brannon ([id number]) on 09/06/2018 9:25:34 AM Referred By: Confirmed By:Christiano Brannon
[2018-09-06] MEDS ORDERED: ONDANSETRON DISINTEGRATING 4 MG TAB PO PRN (09:39)
[2018-09-06] MEDS ORDERED: ONDANSETRON 4 MG/2 ML VIAL IVP PRN (09:39)
[2018-09-06] MEDS ORDERED: BISACODYL 10 MG SUPP PR PRN (09:42)
[2018-09-06] MEDS ORDERED: POLYETHYLENE GLYCOL 3350 17 GM PKT PO PRN (09:42)
[2018-09-06] MEDS ORDERED: MAGNESIUM HYDROXIDE 30 ML UDCUP PO PRN (09:42)
--- NOTE | 2018-09-06 09:44 | PDGENHP ---
History and Physical - Chief Complaint cough, fever - History of Present Illness 83 yo male with h/o a fib on eliquis and recent hospitalization for Group C/G strep bacteremia 2/2 RLE cellulitis who completed a long course of Levaquin presents to ED with fever, cough and SOB. On arrival, he is tachycardic with temp of 39.2. He reports increased cough over the past 2 days which is productive. He otherwise complains of generalized aches. Overall, he is not able to give a detailed history. He currently resides at [facility] since his last hospitalization. He denies CP. No urinary symptoms. He has chronic LE wounds. In the ED, he met criteria for severe sepsis and received 30 mg/kg IVF bolus. Blood cultures were drawn and he was given 2g IV Cefepime. He is admitted for further management. History Information - Allergies/Home Medication List Allergies/Adverse Reactions: Tetracyclines Allergy (Intermediate, Verified 07/12/18 23:10) Vomiting azithromycin Allergy (Unknown, Verified 07/12/18 23:10) Itching nitrofurantoin [From Macrobid] Allergy (Unknown, Verified 07/12/18 23:10) nitrofurantoin macrocrystalline [From Macrobid] Allergy (Unknown, Verified 07/12 23:10) Sulfa (Sulfonamide Antibiotics) Allergy (Unknown, Verified 07/12/18 23:10) Home Medications: Apixaban [Eliquis] 5 mg PO BID 07/15/18 [Last Taken Unknown] Polyethylene Glycol 3350 [Miralax 17 gm (*)] 17 gm PO DAILY PRN 07/15/18 [Last Taken Unknown] Sennosides/Docusate Sodium [Senna-S Tablet] 1 each PO BID 07/15/18 [Last Taken Unknown] Tamsulosin HCl [Flomax 0.4 MG (*)] 0.4 mg PO DAILY 07/15/18 [Last Taken Unknown] Bisacodyl [Dulcolax] 10 mg RC DAILY PRN 09/06/18 [Last Taken Unknown] Cholecalciferol Vit D3 [Vitamin D3 (*)] 50,000 unit PO Q7D 09/06/18 [Last Taken Unknown] Ferrous Sulfate [Ferrous Sulf 325 MG (*)] 325 mg PO BID 09/06/18 [Last Taken Unknown] Magnesium Hydroxide [Milk of Magnesia] 30 ml PO DAILY PRN 09/06/18 [Last Taken Unknown] guaiFENesin [Mucinex 600 MG (*)] 600 mg PO BID 09/06/18 [Last Taken Unknown] I have personally reviewed and updated: family history, medical history, social history, surgical history Past Medical History: See HPI - Past Medical History Additional medical history: Hypertension. Abdominal aortic aneurysm > 6 cm. repair and stent was recommended by Dr. Dietrich and Dr. Srinivasan however patient has declined intervention. Peripheral vascular disease. Diabetes type 2, diet controlled. History of falls. Spinal stenosis with history of right footdrop. Vertigo. History Of osteomyelitis. psoriasis. BPH with history of urinary retention requiring catheter. History PE DVT, recent RLE DVT. Cataracts in and blindness but patient has declined any repair. Anxiety. Paroxysmal atrial fib flutter. - Surgical History Additional surgical history: Appendectomy. Left hip hemiarthroplasty after fracture 09/06/2017. Right hip ORIF 05/2018 - Family History Positive for: stroke (In mother) - Social History Smoking Status: Former smoker Alcohol Use: None Drug Use: None Additional social history: Patient currently lives at [facility]. He has no family in this area reports having 1 daughter in [place], [place]. EMELIAOA is Velia Fragoso a good friend and neighbor. Review of Systems Review of Systems: ROS: 10pt was reviewed & negative except for what was stated in HPI & below Physical Exam Physical Exam: Temp Pulse Resp BP Pulse Ox 38 C 110 H 25 H 160/76 H 97 09/06/18 09:28 09/06/18 09:28 09/06/18 09:28 09/06/18 09:28 09/06/18 09:28 O2 (L/minute) 4 Constitutional: no apparent distress, chronically ill appearing Eyes: PERRL Ears, Nose, Mouth, Throat: dry mucous membranes Cardiovascular: irregularly irregular, tachycardia Respiratory: no respiratory distress, reduced air movement, inspiratory crackles Gastrointestinal: normoactive bowel sounds, soft, non-tender abdomen Skin: warm Musculoskeletal: full muscle strength Psychiatric: encephalopathic Lab Data & Imaging Review 09/06/18 08:10 09/06/18 08:10 WBC 12.27 10^3/uL (3.80-9.50) H 09/06/18 08:10 RBC 4.04 10^6/uL (4.40-6.38) L 09/06/18 08:10 Hgb 9.4 g/dL (13.7-17.5) L 09/06/18 08:10 Hct 31.0 % (40.0-51.0) L 09/06/18 08:10 MCV 76.7 fL (81.5-99.8) L 09/06/18 08:10 MCH 23.3 pg (27.9-34.1) L 09/06/18 08:10 MCHC 30.3 g/dL (32.4-36.7) L 09/06/18 08:10 RDW 17.2 % (11.5-15.2) H 09/06/18 08:10 Plt Count 269 10^3/uL (150-400) 09/06/18 08:10 MPV 9.9 fL (8.7-11.7) 09/06/18 08:10 PT 19.4 SEC (12.0-15.0) H 09/06/18 08:10 INR 1.62 (0.83-1.16) H 09/06/18 08:10 APTT 31.6 SEC (23.0-38.0) 09/06/18 08:10 VBG Lactic Acid 2.6 mmol/L (0.7-2.1) H 09/06/18 08:10 Sodium 141 mEq/L (135-145) 09/06/18 08:10 Potassium 4.9 mEq/L (3.5-5.2) 09/06/18 08:10 Chloride 111 mEq/L (97-110) H 09/06/18 08:10 Carbon Dioxide 25 mEq/l (22-31) 09/06/18 08:10 Anion Gap 5 mEq/L (6-14) L 09/06/18 08:10 BUN 25 mg/dL (7-23) H 09/06/18 08:10 Creatinine 1.1 mg/dL (0.7-1.3) 09/06/18 08:10 Estimated GFR > 60 09/06/18 08:10 Glucose 117 mg/dL (70-100) H 09/06/18 08:10 Calcium 8.3 mg/dL (8.5-10.4) L 09/06/18 08:10 Total Bilirubin 1.0 mg/dL (0.1-1.4) 09/06/18 08:10 Visualized and Interpreted Chest x-ray results: Yes Chest X-Ray results: other (cardiomegaly with central pulmonary vascular prominence) Visualized and Interpreted EKG results: Yes EKG additional interpertation: a flutter Assessment & Plan Assessment: Severe sepsis - presumed source is PNA, viral vs bacterial. BCx's pending. Lactate 2.6 --> 1.8 after NS bolus. He resides at [facility] and has had recent atbx exposure for tx of Group C/G strep 2/2 RLE cellulitis. -cefepime 2g IV q8h plus Vanco -repeat CXR in am after hydration -send sputum cx and PCT -send respiratory viral PCR AHRF - not on home O2, suspect 2/2 above. On Eliquis thus doubt PE. -start qid xopenex -RT support, wean O2 as able A flutter - rate improved after IVF's -cont eliquis for CVA prevention -add rate control agent such as dilt if needed RLE DVT - prior h/o PE and DVT -eliquis Hypertension - cont amlodipine unless BP drops in setting of sepsis (BP elevated on arrival) -would also consider changing this to dilt if rate control agent needed DM type 2 - not on oral hypoglycemics or insulin, bg's 100's, last a1c ~6 -monitor CKD - Cr at baseline Vascular dementia AAA - 6 cm, pt has previously refused intervention Cataracts / blindness Code status - JACOB Gunn Dispo - admit to inpt, anticipate >48 hrs hospitalization for ongoing management of severe sepsis / PNA
[2018-09-06] MEDS ORDERED: ACETAMINOPHEN 500 MG TAB ONE (09:56)
[2018-09-06] MEDS ORDERED: ACETAMINOPHEN 500 MG TAB PO ONE (09:58)
--- NOTE | 2018-09-06 10:01 | PDMN ---
Medical Necessity Medical necessity: Pt meets IP criteria as of 09/06/2018 per and MCG M-160 ( Sepsis); est los > 2 mn for ongoing tx and management of severe sepsis with tachycardia, tachypnea, hypoxemia, fever, elevated WBC and elevated lactate likely d/t pneumonia.
[2018-09-06] MEDS ORDERED: IBUPROFEN 200 MG TAB PO PRN (11:50)
[2018-09-06] MEDS: LEVALBUTEROL 1.25 MG/3 ML DEYVIAL IH SCH ×3 (12:02→20:34)
[2018-09-06] MEDS: BENZONATATE 100 MG CAP PO PRN (12:29)
[2018-09-06] MEDS: GUAIFENESIN/DM 10 ML UDCUP PO PRN (12:29)
[2018-09-06] MEDS: ACETAMINOPHEN 325 MG TAB PO PRN (16:20)
[2018-09-06] MEDS: CEFEPIME HCL 2 GM in NS 100 ML IV SCH ×2 (16:20→22:33)
[2018-09-06] MEDS ORDERED: HALOPERIDOL LACT 5 MG/ML INJ IVP PRN (17:30)
[2018-09-06] MEDS: SENNOSIDES/DOCUSATE SODIUM TAB PO SCH (22:32)
[2018-09-06] MEDS: APIXABAN 5 MG TAB PO SCH (22:32)
[2018-09-06] MEDS: guaiFENesin 600 MG TAB.ER PO SCH (22:32)
[2018-09-06] MEDS: FERROUS SULFATE 325 MG TAB PO SCH (22:32)
[2018-09-07] MEDS: LEVALBUTEROL 1.25 MG/3 ML DEYVIAL IH SCH ×2 (05:27→09:48)
[2018-09-07] MEDS: CEFEPIME HCL 2 GM in NS 100 ML IV SCH (06:59)
[2018-09-07 07:52] LABS: PLATELET COUNT 181 10^3/uL (150-400)
[2018-09-07] MEDS: APIXABAN 5 MG TAB PO SCH ×2 (08:30→21:48)
[2018-09-07] MEDS: SENNOSIDES/DOCUSATE SODIUM TAB PO SCH ×2 (08:30→21:48)
[2018-09-07] MEDS: TAMSULOSIN HCL 0.4 MG CAP PO SCH (08:30)
[2018-09-07] MEDS: guaiFENesin 600 MG TAB.ER PO SCH ×2 (08:30→21:48)
[2018-09-07] MEDS: amLODIPine BESYLATE 5 MG TAB PO SCH (08:30)
[2018-09-07] MEDS: FERROUS SULFATE 325 MG TAB PO SCH ×2 (08:30→21:48)
--- NOTE | 2018-09-07 10:11 | HOSPPROG ---
Hospitalist Progress Note Assessment/Plan: Severe sepsis - Sepsis physiology resolved. Presumed source is PNA, viral vs bacterial. BCx's ngtd. Sputum Cx with 1+ GPC's. RVP neg. Lactate 2.6 --> 1.8 after NS bolus. He resides at [facility] and has had recent atbx exposure ( Levaquin) for tx of Group C/G strep 2/2 RLE cellulitis. -cefepime 2g IV q8h, but now without IV and refusing new IV placement -repeat CXR today (no obvious infiltrate on initial film, now that he has been volume resuscitated, would live to re-evaluate) AHRF - suspect 2/2 above. On Eliquis thus doubt PE. Not on home O2 -QID xopenex -RT support, wean O2 as able A flutter - rate improved after IVF's -cont eliquis for CVA prevention -add rate control agent such as dilt if needed Agitation - prn haldol Metabolic encephalopathy - unclear baseline, but suspect related to acute infection RLE DVT - prior h/o PE and DVT -eliquis Hypertension - cont amlodipine unless BP drops in setting of sepsis (BP elevated on arrival) -would also consider changing this to dilt if rate control agent needed DM type 2 - not on oral hypoglycemics or insulin, bg's 100's, last a1c ~6 -monitor CKD - Cr at baseline Vascular dementia AAA - 6 cm, pt has previously refused intervention Cataracts / blindness Code status - discussed with JACOB Gunn, who states he would wish to be DNR/DNI Dispo - admit to inpt, transfer to med surg Subjective: Pt is not responding to questions, moans. Not decisional currently. No fevers overnight. He lost his IV and has refused new IV placement. Objective: Vital Signs Temp Pulse Resp BP Pulse Ox 36.8 C 104 H 17 132/104 H 97 09/07/18 07:35 09/07/18 09:50 09/07/18 09:50 09/07/18 07:35 09/07/18 09:50 Microbiology 09/06/18 13:00 - Final Sputum, Expectorated 09/06/18 10:50 Respiratory Panel (PCR) - Final Nasal, Sinus - [place] Viral Transport No Organism Detected By Pcr Laboratory Results 09/07/18 06:55 09/07/18 06:55 09/06/18 09/07/18 09/08/18 05:59 05:59 05:59 Intake Total 6192 Balance 6192 PT 19.4 SEC (12.0-15.0) H 09/06/18 08:10 INR 1.62 (0.83-1.16) H 09/06/18 08:10 - Physical Exam Constitutional: no apparent distress Eyes: PERRL Ears, Nose, Mouth, Throat: moist mucous membranes Cardiovascular: irregularly irregular Respiratory: no respiratory distress, reduced air movement, inspiratory crackles Gastrointestinal: normoactive bowel sounds, soft, non-tender abdomen Skin: warm Musculoskeletal: generalized weakness Psychiatric: encephalopathic ICD10 Worksheet Patient Problems: Problems Problem Status Onset Hypoxemia Acute Pneumonia Acute Severe sepsis Acute Acute kidney injury Acute Atrial flutter Acute Cervical strain Acute DVT (deep venous thrombosis) Acute Dehydration Acute Displaced fracture of right femoral neck Acute Elevated troponin Acute Fever Acute Head injury Acute Hypoxia Acute Nausea, vomiting, and diarrhea Acute Palliative care encounter Acute Pancreatitis Acute Pulmonary embolus Acute Toe infection Acute Vomiting Acute chronic disease mgmt/transitional care Acute
[2018-09-07] MEDS ORDERED: HALOPERIDOL 1 MG TAB PO PRN (10:19)
[2018-09-07] MEDS ORDERED: LEVALBUTEROL 1.25 MG/3 ML DEYVIAL IH PRN (11:00)
--- NOTE | 2018-09-07 11:23 | WOCRNPDOC ---
WOCRN Advanced Assessment Note - Skin Integrity Problem, Advanced Assess Right Medial Ankle Dressing Type: Allevyn Life Dressing Description: Clean/Dry, Intact Exudate Amount: Scant Exudate Characteristic(s): Serosanguinous Integumentary Issue Intervention: Visualized Under Dressing Leonor Wound Tissue: Erythema, Macerated (minimal leonor wound only) Leonor Wound Swelling: Mild Wound Bed Constitution: Mixed Loose & Adhered Slough/Eschar (100%) Wound Edges: Not Attached, Well Defined Site Measurement - Head-to-Toe Length X Width X Depth (cm): 1x1x0.2 Pressure Injury Stage: Unstageable Pressure Injury Present on Admit: Yes Skin Integrity Problem Comment: Chronic full thickness wound that needs debridement. Autolytic debridement will be inititated. Patient historically has refused wound care recommendations. Patient not decisional at this time. He is agitated and is referring to his mother although there are no family members in the room. Right Heel Dressing Type: Allevyn Life Dressing Description: Clean/Dry, Intact Exudate Amount: Minimal Exudate Characteristic(s): Serosanguinous Integumentary Issue Intervention: Visualized Under Dressing Leonor Wound Tissue: Erythema, Macerated, Non-blanching Leonor Wound Swelling: None Wound Bed Color: Black, Purple Site Measurement - Head-to-Toe Length X Width X Depth (cm): 4x6x0.2 Pressure Injury Stage: Deep Tissue Injury (DTI) Pressure Injury Present on Admit: Yes Skin Integrity Problem Comment: Large, evolving deep tissue injury with epithelial sloughing and significant necrosis developing. The wound is full thickness. Offload heel at all times in heel offloading boots. Wound care will follow. Right Greater Trochanter Pressure Injury Dressing Type: Allevyn Life Exudate Amount: None Pressure Injury Stage: Deep Tissue Injury (DTI) Pressure Injury Present on Admit: Yes Skin Integrity Problem Comment: Intact non blanching, x2 deep red areas. Keep covered with Allevyn life large dressing. Wound care will follow. Per DREA Cheng no pressure injuries noted on buttocks or ischium.
[2018-09-07] MEDS ORDERED: HALOPERIDOL LACT 5 MG/ML INJ IM PRN ×3 (12:10→14:42)
[2018-09-07] MEDS ORDERED: D5W 1/2 NS 1,000 ML IV SCH (16:30)
--- NOTE | 2018-09-07 17:03 | ASMTCMCOM ---
CM Note CM Note Notes: 09/07/2018 Case Management Note Pt admitted for fever, sepsis, hypoxemia and PNA. Pt has advanced dementia per [facility]. Pt resides at [facility]. Faxed updates via [employer]. Met w/pt and JACOB Gunn to discuss palliative care. Velia stated "I don't think he is going to make it out of here". Consulted [facility] Palliative team members. [facility] palliative to meet w/Velia tomorrow. Case Management d/c poc: to be determined. Case Management to follow. Date Signed: 09/07/2018 05:02 PM Electronically Signed By:Gianna Sparks RN
[2018-09-07] MEDS ORDERED: HALOPERIDOL LACT 5 MG/ML INJ IV PRN (17:12)
[2018-09-07] MEDS: PIPERACILLIN/TAZO 4.5 GM/DEX 100 ML IV SCH (17:40)
[2018-09-08] MEDS: PIPERACILLIN/TAZO 4.5 GM/DEX 100 ML IV SCH ×4 (00:43→18:57)
[2018-09-08 06:34] LABS: PLATELET COUNT 210 10^3/uL (150-400)
[2018-09-08] MEDS: guaiFENesin 600 MG TAB.ER PO SCH ×3 (08:18→21:26)
[2018-09-08] MEDS: SENNOSIDES/DOCUSATE SODIUM TAB PO SCH ×4 (08:18→21:26)
[2018-09-08] MEDS: TAMSULOSIN HCL 0.4 MG CAP PO SCH ×2 (08:18→11:52)
[2018-09-08] MEDS: FERROUS SULFATE 325 MG TAB PO SCH ×4 (08:18→21:26)
[2018-09-08] MEDS: amLODIPine BESYLATE 5 MG TAB PO SCH ×3 (08:18→11:52)
[2018-09-08] MEDS: APIXABAN 5 MG TAB PO SCH ×4 (08:18→21:26)
--- NOTE | 2018-09-08 10:51 | HOSPPROG ---
Hospitalist Progress Note Assessment/Plan: 83 yo male with multiple medical problems admitted with cough, fever. Note this is his 4th hospitalization since his hip fracture in 05/2018. Severe sepsis - Sepsis physiology resolved. Presumed source is PNA, viral vs bacterial, possible aspiration. BCx's ngtd. Sputum Cx with 1+ GPC's, mixed keith. RVP neg. Lactate 2.6 --> 1.8 after NS bolus. He resides at [facility] and has had recent atbx exposure (Levaquin) for tx of Group C/G strep 2/2 RLE cellulitis. -cont zosyn due to concern for aspiration -speech / swallow eval, recommends NPO for aspiration risk AHRF - 2/2 PNA. Has been on Eliquis thus doubt PE. 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 Consider changing to Lovenox if he cannot swallow soon Hypertension - cont amlodipine, would also consider changing this to dilt if rate control agent needed DM type 2 - not on oral hypoglycemics or insulin, bg's 100's, last a1c ~6 -monitor Anemia - check iron studies, no e/o active bleeding or indication for transfusion CKD - Cr at baseline Vascular dementia AAA - 6 cm, pt has previously refused intervention Cataracts / blindness FEN - currently NPO due to aspiration risk. Will need to address nutrition in next couple of days if he remains NPO. I don't think he is a good candidate for a feeding tube given his dementia and declining health over past several months. Code status - discussed with JACOB Gunn, who states he would wish to be DNR/ DNI. He is not decisional. Velia would like to continue full treatment short of heroic measures. If his condition deteriorates, she would consider comfort care. Dispo - cont inpt, SDU given high nursing needs. Lives at [facility] currently. Subjective: Pt remains confused, agitated, frequently refuses RN care. He is restrained with mits to prevent him pulling out his IV. No more fevers. Still coughing, wet cough. Currently NPO. Objective: Vital Signs Temp Pulse Resp BP Pulse Ox 35.7 C L 116 H 13 118/68 100 09/08/18 07:33 09/08/18 07:33 09/08/18 07:33 09/08/18 07:33 09/08/18 07:33 Microbiology 09/06/18 13:00 - Final Sputum, Expectorated Laboratory Results 09/08/18 06:25 09/08/18 06:25 09/07/18 09/08/18 09/09/18 05:59 05:59 05:59 Intake Total 6192 425 Balance 6192 425 PT 19.4 SEC (12.0-15.0) H 09/06/18 08:10 INR 1.62 (0.83-1.16) H 09/06/18 08:10 - Physical Exam Constitutional: chronically ill appearing Eyes: PERRL Ears, Nose, Mouth, Throat: moist mucous membranes Cardiovascular: irregularly irregular, tachycardia Respiratory: no respiratory distress, expiratory wheeze, inspiratory crackles Gastrointestinal: normoactive bowel sounds, soft, non-tender abdomen Skin: warm Musculoskeletal: full muscle strength Psychiatric: encephalopathic ICD10 Worksheet Patient Problems: Problems Problem Status Onset Hypoxemia Acute Pneumonia Acute Severe sepsis Acute Acute kidney injury Acute Atrial flutter Acute Cervical strain Acute DVT (deep venous thrombosis) Acute Dehydration Acute Displaced fracture of right femoral neck Acute Elevated troponin Acute Fever Acute Head injury Acute Hypoxia Acute Nausea, vomiting, and diarrhea Acute Palliative care encounter Acute Pancreatitis Acute Pulmonary embolus Acute Toe infection Acute Vomiting Acute chronic disease mgmt/transitional care Acute
[2018-09-08] MEDS ORDERED: D5W NS 1,000 ML IV SCH (11:00)
[2018-09-09] MEDS: PIPERACILLIN/TAZO 4.5 GM/DEX 100 ML IV SCH ×4 (01:22→14:59)
[2018-09-09] MEDS ORDERED: GUAIFENESIN 20 MG/ML PO SCH (09:30)
[2018-09-09] MEDS: amLODIPine BESYLATE 5 MG TAB PO SCH (09:35)
[2018-09-09] MEDS: TAMSULOSIN HCL 0.4 MG CAP PO SCH (09:35)
[2018-09-09] MEDS: SENNOSIDES/DOCUSATE SODIUM TAB PO SCH ×2 (09:35→23:51)
[2018-09-09] MEDS: GUAIFENESIN/DM 10 ML UDCUP PO PRN ×4 (09:40→23:22)
[2018-09-09] MEDS: APIXABAN 5 MG TAB PO SCH ×2 (09:40→21:49)
[2018-09-09] MEDS: guaiFENesin 200 MG/10 ML UDL PO SCH ×2 (09:41→23:50)
[2018-09-09] MEDS: FERROUS SULFATE 300 MG/5 ML UD CUP PO SCH ×2 (09:43→23:50)
[2018-09-09] MEDS: FERROUS SULFATE 325 MG TAB PO SCH (09:44)
[2018-09-09] MEDS: guaiFENesin 600 MG TAB.ER PO SCH (09:44)
--- NOTE | 2018-09-09 13:56 | HOSPPROG ---
Hospitalist Progress Note Assessment/Plan: 83 yo male with multiple medical problems admitted with cough, fever. Note this is his 4th hospitalization since his hip fracture in 05/2018. Severe sepsis - Sepsis physiology resolved. Presumed source is PNA, possible aspiration. BCx's ngtd. RVP neg. Lactate 2.6 --> 1.8 after NS bolus. He resides at [facility] and has had recent atbx exposure (Levaquin) for tx of Group C/G strep 2/2 RLE cellulitis. -change Zosyn to oral augmentin today -VFSS today without aspiration AHRF - Presented with tachypnea, respiratory distress, 2/2 PNA. Not on home O2. 3 LPM today. -atbx as above -prn anti-tussives -RT support, wean O2 as able A flutter - rate improved after IVF's initially, but now 130's -start oral diltiazem 30 q6h for rate control -d/c xopenex, could be contributing to rapid HR -cont eliquis for CVA prevention Metabolic encephalopathy with agitation - 2/2 infection, underlying dementia. 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 Lives at [facility] currently. Subjective: Pt feels much better today. He is up in chair, interacting appropriately today, mentation is much improved. No fevers. Denies CP or SOB. Still coughing a bit, productive. Objective: Vital Signs Temp Pulse Resp BP Pulse Ox 36.4 C 130 H 20 122/110 H 99 09/09/18 07:41 09/09/18 07:41 09/09/18 07:41 09/09/18 07:41 09/09/18 07:41 Microbiology 09/06/18 13:00 - Final Sputum, Expectorated Sputum Culture - Final Laboratory Results 09/08/18 06:25 09/08/18 06:25 09/08/18 09/09/18 09/10/18 05:59 05:59 05:59 Intake Total 425 1147 Balance 425 1147 PT 19.4 SEC (12.0-15.0) H 09/06/18 08:10 INR 1.62 (0.83-1.16) H 09/06/18 08:10 - Physical Exam Constitutional: no apparent distress Eyes: PERRL Ears, Nose, Mouth, Throat: moist mucous membranes Cardiovascular: tachycardia Respiratory: no respiratory distress, other (a few bibasilar crackles) Gastrointestinal: normoactive bowel sounds, soft, non-tender abdomen Skin: warm Musculoskeletal: full muscle strength, other (LE wounds dressed) Psychiatric: poor memory ICD10 Worksheet Patient Problems: Problems Problem Status Onset Hypoxemia Acute Pneumonia Acute Severe sepsis Acute Acute kidney injury Acute Atrial flutter Acute Cervical strain Acute DVT (deep venous thrombosis) Acute Dehydration Acute Displaced fracture of right femoral neck Acute Elevated troponin Acute Fever Acute Head injury Acute Hypoxia Acute Nausea, vomiting, and diarrhea Acute Palliative care encounter Acute Pancreatitis Acute Pulmonary embolus Acute Toe infection Acute Vomiting Acute chronic disease mgmt/transitional care Acute
[2018-09-09] MEDS: DILTIAZEM 30 MG TAB PO SCH ×3 (17:27→23:50)
[2018-09-09] MEDS: AMOXICILLIN/CLAVULANATE POT 875/125 MG TAB PO SCH ×2 (17:27→23:50)
[2018-09-09] MEDS: ACETAMINOPHEN 325 MG TAB PO PRN ×2 (17:28→21:50)
[2018-09-10] MEDS: DILTIAZEM 30 MG TAB PO SCH ×4 (06:00→22:30)
[2018-09-10] MEDS: ACETAMINOPHEN 325 MG TAB PO PRN (06:00)
[2018-09-10] MEDS: AMOXICILLIN/CLAVULANATE POT 875/125 MG TAB PO SCH ×2 (10:29→22:24)
[2018-09-10] MEDS: APIXABAN 5 MG TAB PO SCH ×2 (10:29→22:24)
[2018-09-10] MEDS: SENNOSIDES/DOCUSATE SODIUM TAB PO SCH ×2 (10:31→22:24)
[2018-09-10] MEDS: FERROUS SULFATE 300 MG/5 ML UD CUP PO SCH ×2 (10:35→22:24)
[2018-09-10] MEDS: guaiFENesin 200 MG/10 ML UDL PO SCH ×2 (10:35→22:23)
[2018-09-10] MEDS: TAMSULOSIN HCL 0.4 MG CAP PO SCH ×2 (10:35→15:01)
--- NOTE | 2018-09-10 15:21 | ASMTCMCOM ---
CM Note CM Note Notes: Updates sent to [place]. Pt is not medically stable to d/c at this time. Pt will return back to [facility] once able to. CM to follow. Date Signed: 09/10/2018 03:21 PM Electronically Signed By:LYDIA Loya
[2018-09-10] MEDS: BENZONATATE 100 MG CAP PO PRN (15:53)
--- NOTE | 2018-09-10 16:08 | HOSPPROG ---
Hospitalist Progress Note Assessment/Plan: 83 yo male with multiple medical problems admitted with cough, fever. Note this is his 4th hospitalization since his hip fracture in 05/2018. PNA - presumed, possibly due to aspiration. RVP negative. I reviewed his chart as the patient is new to me. CXR with RLL infiltrate which would be consistent with aspiration. was on zosyn. -cont augmentin -speech to re eval today as he was NPO AHRF - 2/2 PNA. Has been on Eliquis thus doubt PE. Not on home O2 -continue treatment as above. -oxygen PRN A flutter - rate improved after IVF's. Dilt 30 Q6 with fairly good rate control. Had rates to the 130s but now better. -cont eliquis -cont dilt 30 QID for now Metabolic encephalopathy with agitation - 2/2 infection, underlying dementia -patient oriented today. 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 Consider changing to Lovenox if he cannot swallow soon Hypertension - cont amlodipine, dilt DM type 2 - not on oral hypoglycemics or insulin, bg's 100's, last a1c ~6 -monitor Anemia - check iron studies, no e/o active bleeding or indication for transfusion CKD - Cr at baseline Vascular dementia AAA - 6 cm, pt has previously refused intervention Cataracts / blindness FEN - currently NPO due to aspiration risk. Will need to address nutrition in next couple of days if he remains NPO. I don't think he is a good candidate for a feeding tube given his dementia and declining health over past several months. Code status - discussed with JACOB Gunn, who states he would wish to be DNR/ DNI. He is not decisional. Velia would like to continue full treatment short of heroic measures. If his condition deteriorates, she would consider comfort care. Dispo - possible discharge back to [facility] tomorrow if rates continue to remain adequately controlled. Subjective: patient agitated and rude today. No complaints. Objective: Vital Signs Temp Pulse Resp BP Pulse Ox 36.9 C 80 16 124/58 H 95 09/10/18 12:00 09/10/18 13:00 09/10/18 12:09/10/18 13:09/10/18 12:00 Microbiology 09/06/18 13:00 - Final Sputum, Expectorated Sputum Culture - Final Laboratory Results 09/08/18 06:25 09/08/18 06:25 09/09/18 09/10/18 09/11/18 05:59 05:59 05:59 Intake Total 1147 100 Output Total 100 Balance 1147 100 -100 PT 19.4 SEC (12.0-15.0) H 09/06/18 08:10 INR 1.62 (0.83-1.16) H 09/06/18 08:10 - Physical Exam Constitutional: no apparent distress, appears nourished, not in pain Eyes: PERRL, anicteric sclera, EOMI Ears, Nose, Mouth, Throat: moist mucous membranes, hearing normal, ears appear normal, no oral mucosal ulcers Cardiovascular: regular rate and rhythym, no murmur, rub, or gallop Respiratory: no respiratory distress, no rales or rhonchi, clear to auscultation Gastrointestinal: normoactive bowel sounds, soft, non-tender abdomen, no palpable masses Genitourinary: no bladder fullness, no bladder tenderness, no renal bruits Skin: no rashes or abrasions, no fluctuance, no induration Musculoskeletal: full muscle strength, no muscle tenderness, normal joint ROM Neurologic: AAOx3, sensation intact bilaterally Psychiatric: interacting appropriately, not anxious, not encephalopathic, thought process linear Lymph, Heme, Immunologic: no cervical LAD, no supraclavicular LAD ICD10 Worksheet Patient Problems: Problems Problem Status Onset Hypoxemia Acute Pneumonia Acute Severe sepsis Acute Acute kidney injury Acute Atrial flutter Acute Cervical strain Acute DVT (deep venous thrombosis) Acute Dehydration Acute Displaced fracture of right femoral neck Acute Elevated troponin Acute Fever Acute Head injury Acute Hypoxia Acute Nausea, vomiting, and diarrhea Acute Palliative care encounter Acute Pancreatitis Acute Pulmonary embolus Acute Toe infection Acute Vomiting Acute chronic disease mgmt/transitional care Acute
[2018-09-11 04:55] LABS: PLATELET COUNT 226 10^3/uL (150-400)
[2018-09-11] MEDS: DILTIAZEM 30 MG TAB PO SCH ×2 (06:14→15:38)
[2018-09-11] MEDS: FERROUS SULFATE 300 MG/5 ML UD CUP PO SCH (10:40)
[2018-09-11] MEDS: AMOXICILLIN/CLAVULANATE POT 875/125 MG TAB PO SCH (10:40)
[2018-09-11] MEDS: guaiFENesin 200 MG/10 ML UDL PO SCH (10:40)
[2018-09-11] MEDS: APIXABAN 5 MG TAB PO SCH (10:40)
[2018-09-11] MEDS: ACETAMINOPHEN 325 MG TAB PO PRN (10:40)
[2018-09-11] MEDS: TAMSULOSIN HCL 0.4 MG CAP PO SCH (10:50)
[2018-09-11] MEDS: SENNOSIDES/DOCUSATE SODIUM TAB PO SCH (10:50)
[2018-09-11 11:56] VITALS: BP 109/51
--- NOTE | 2018-09-11 14:53 | PDIAF ---
- Diagnosis Code Status: Do Not Resuscitate - Medication Management Additional Medication Instructions: continue augmentin for 3 additional days to complete 7 day course. Continue diltiazem for afib and blood pressure control Discharge Medications: electronically signed and located in the Home Medication List. - Orders Services needed: Registered Nurse, Physical Therapy, Occupational Therapy Isolation Type: None Diet Recommendation: no restrictions on diet Diet Texture: Dysphagia 2 - Mechanically Altered - Chopped, Ground, Thin Liquids , Meds Crushed in Puree Additional Instructions: Change dressings to right medial ankle every 2 days and prn. 1. Clean well with ns and gauze 2. Skin prep leonor wound 3. Iodosorb gel to wound bed 4. Cover with Allevyn Life Change dressings to right medial heel every 2 days and prn. 1. Clean well with ns and gauze 2. Skin prep leonor wound 3. silvasorb gel to wound bed/s that are open. 4. Cover with Allevyn Life Connie Torab CWON - Labs/Radiology BMP Date: 09/14/18 CBC w/diff Date: 09/14/18 - Follow Up Care Current Providers and Referrals: Patient,NotPresent [Unknown] - As per Instructions
--- NOTE | 2018-09-11 15:25 | ASMTLACE ---
HERMINIA Length of stay for Answers: 4-6 days current admission Acuity / Level of Answers: Yes Care: Did the patient have an inpatient admission? Comorbidities - select Answers: Diabetes (uncontrolled or all that apply controlled) History of falls Moderate or severe liver or renal disease Peripheral vascular disease Other Notes: AFib; SPinal stenosis; Abd aortic aneurysm # of Emergency department Answers: 3-4 visits in the last 6 months Social determinants Answers: Mental health diagnosis (anxiety, depression, pers onality disorders, etc.) Score: 23 Date Signed: 09/11/2018 03:25 PM Electronically Signed By:Gianna Sparks RN
--- NOTE | 2018-09-11 15:57 | ASDISCHSUM ---
Discharge Information Plan Status:SNF Medically Cleared to Leave:09/10/2018 Discharge Date:09/10/2018 CM D/C Disposition:Sn[facility] Facility ADT D/C Disposition:Rehab Nursing Home Care Projected Discharge Date:09/09/2018 11:00 AM Transportation at D/C:ALS/BLS Discharge Delay Reason: Follow-Up Date:09/09/2018 11:00 AM Discharge Slot: Final Diagnosis: Placement Information Referral Type:*[facility]/SNF Referral ID:[id number] Provider Name:Melissa Werner [place] Address 1:[address] Address 2: City:[place] Selection Factors: State:[place] Referral Type:Palliative Care Referral ID:[id number] Provider Name:[facility] Address 1:[address] Phone Number: Address 2: Fax Number: [facility]:[place] Selection Factors: State:[place] Patient Contact Information Contact Name:BIANCA Relationship:Friend Address: Work Phone: City:[place] Alternate Phone: [facility]/Zip Code:[place] Email: Financial Information Financial Class:Medicare Primary Plan Desc:MEDICARE INPATIENT Primary Plan Number:[id number] Secondary Plan Desc: Secondary Plan Number: Assessment Information LACE LACE Length of stay for Answers: 4-6 days current admission Acuity / Level of Answers: Yes Care: Did the patient have an inpatient admission? Comorbidities - select Answers: Diabetes (uncontrolled or all that apply controlled) History of falls Moderate or severe liver or renal disease Peripheral vascular disease Other Notes: AFib; SPinal stenosis; Abd aortic aneurysm # of Emergency department Answers: 3-4 visits in the last 6 months Social determinants Answers: Mental health diagnosis (anxiety, depression, pers onality disorders, etc.) Score: 23 Date Signed: 09/11/2018 03:25 PM Electronically Signed By:Gianna Sparks RN [facility] CM Progress Note CM Note CM Note Notes: 09/07/2018 Case Management Note Pt admitted for fever, sepsis, hypoxemia and PNA. Pt has advanced dementia per [facility]. Pt resides at [place] in [facility]. Faxed updates via [employer]. [facility]. Velia stated "I don't think he is going to make it out of here". Consulted [facility] Palliative team members. [facility] palliative to meet w/Velia tomorrow. Case Management d/c poc: to be determined. Case Management to follow. Date Signed: 09/07/2018 05:02 PM Electronically Signed By:Gianna Sparks RN [facility] CM Progress Note CM Note CM Note Notes: Updates sent to [facility]. Pt is not medically stable to d/c at this time. Pt will return back to [facility] once able to. CM to follow. Date Signed: 09/10/2018 03:21 PM Electronically Signed By:LYDIA Loya Case Management Discharge Plan Note Case Management Discharge Discharge Order Complete? Answers: Yes Patient to Obtain Answers: Other Notes: [facility] Medications Transportation Arranged Answers: [facility] Mohamud Transport will Pick (Date 09/11/2018 04:00 PM & Time) Case Management Transport Answers: Yes Notes: PCS completed Form Complete Faxed Final Orders Answers: Yes Notes: to Melissa Deng on Agency/Facility Transfer Answers: Yes Notes: to Melissa Deng on Report Printed & Faxed to Receiving Agency Discharge Comments Notes: 09/11/2018 Case Management Note Faxed final orders to [facility] and Melissa Navarro. RN to call report. Quirino from [facility] unable to send transport and requested case management set up on his behalf. [facility] mohamud to transport d/t dementia and bed bound status. Case Management d/c poc : return to [facility]. Date Signed: 09/11/2018 03:56 PM Electronically Signed By:Gianna Sparks RN Intervention Information
--- NOTE | 2018-09-11 17:05 | PDDCSUM ---
Discharge Summary Discharge Summary: 83-year-old male with advanced dementia admitted with fever,hypoxia, sepsis. Chest x-ray suggestive of an aspiration pneumonia. He was started on antibiotics and his white count trended down an oxygen requirement resolved. He has advanced dementia but seemed more agitated consistent with a metabolic encephalopathy. As his infection resolved he seemed to become more lucid and cooperative with staff. He was noted to be in a flutter with some elevated rates. He was started on diltiazem 30 mg q.6 and his rates were substantially better after starting this medication. He was seen by speech language pathology who recommended a dysphagia diet. On the day of discharge patient was cooperative, had no oxygen requirement, no longer had a leukocytosis, and was able to tolerate his oral medications. He was discharged back to [facility] in good condition Discharge diagnosis Aspiration pneumonia Acute hypoxemic respiratory failure-resolved A flutter Metabolic encephalopathy Dementia Right lower extremity DVT on Eliquis Hypertension Diet controlled type 2 diabetes mellitus Chronic kidney disease Discharge medications (new) New medications include diltiazem 30 mg q.6 Augmentin 875 mg twice daily Over 35 min were spent on discharge including discharge, arranging follow-up discussing plan of care with patient and family
--- NOTE | 2018-09-11 20:45 | ASMTDCNOTE ---
Case Management Discharge Discharge Order Complete? Answers: Yes Patient to Obtain Answers: Other Notes: [facility] Transportation Arranged Answers: [facility] Transport will Pick (Date 09/11/2018 04:00 PM & Time) Case Management Transport Answers: Yes Notes: PCS completed Form Complete Faxed Final Orders Answers: Yes Notes: to Melissa Navarro and Shobha on Agency/Facility Transfer Answers: Yes Notes: to [facility] and shobha on Report Printed & Faxed to Receiving Agency Discharge Comments Notes: 09/11/2018 Case Management Note Faxed final orders to [facility] and [facility]. RN to call report. Quirino from [facility] unable to send transport and requested case management set up on his behalf. [facility] stretcher to transport d/t dementia and bed bound status. Case Management d/c poc : return to [facility]. Date Signed: 09/11/2018 03:56 PM Electronically Signed By:Gianna Sparks RN
== END 2018-09-11 16:05 | DRG 871 ==
LOC: EDUNIT# → F2N 11:13 → UNDODISIN 12:53 → F2W 09-09 16:23
PROVIDERS: ADMIT Student in an Organized Health Care Education/Training Program; ATTEND Student in an Organized Health Care Education/Training Program
DX: A41.9 Sepsis, unspecified organism (principal); J69.0 Pneumonitis due to inhalation of food and vomit; G93.41 Metabolic encephalopathy; J96.01 Acute respiratory failure with hypoxia; I48.92 Unspecified atrial flutter; I82.401 Acute embolism and thrombosis of unspecified deep veins of right lower extremity; R65.20 Severe sepsis without septic shock; E86.9 Volume depletion, unspecified; F03.90 Unspecified dementia, unspecified severity, without behavioral disturbance, psychotic disturbance, mood disturbance, and anxiety; I12.9 Hypertensive chronic kidney disease with stage 1 through stage 4 chronic kidney disease, or unspecified chronic kidney disease; N18.9 Chronic kidney disease, unspecified; E11.9 Type 2 diabetes mellitus without complications; H26.9 Unspecified cataract; H54.7 Unspecified visual loss; F01.50 Vascular dementia, unspecified severity, without behavioral disturbance, psychotic disturbance, mood disturbance, and anxiety; Z66 Do not resuscitate
CPT/HCPCS: 92526-GN; 92610-GN; 92611-GN; 96365; 97116-GP; 97162-GP; 97166-GO; 97530-GP; 97535-GO; J0692; J1630; J2543

== ENCOUNTER 2018-10-07 16:09 | Inpatient (IN) | payer MEDICAID, OTHER ==
[2018-10-07] MEDS ORDERED: NS 1,000 ML IV ONE (16:23)
[2018-10-07] MEDS ORDERED: fentaNYL 100 MCG/2 ML INJ IVP ONE (16:24)
--- NOTE | 2018-10-07 16:55 | EDPHY ---
General - History Smoking Status: Former smoker Time Seen by Provider: 10/07/18 16:40 Narrative: CLINICAL IMPRESSION: Right heel wound ASSESSMENT/PLAN: 83-year-old male with multiple medical comorbidities, currently residing at [facility], presents to the emergency department by ambulance for evaluation of a right heel wound. Patient has been working with wound care who saw the patient today and thought the wound looked worse. Patient does have a history of osteomyelitis as well as bacteremia and was admitted to the hospital recently for sepsis. No reported fevers at home and patient is afebrile, nontoxic and nonseptic appearing on arrival. He does however have multiple shallow ulcers to the right foot including a rather large ulcer to the heel associated with surrounding erythema and swelling concerning for cellulitis versus osteomyelitis. IV established, labs, x-rays ordered. There was no reported antibiotic use at [facility]. Case discussed with Dr. Nguyen who will assume care of this patient at 5:00 p.m. Pending lab and x-ray results and probable admission for IV antibiotics. DIFFERENTIAL DX: Differential includes but not limited to acute fracture, cellulitis, necrotizing fasciitis, osteomyelitis ED PROCEDURES: See lab and/or imaging results below ED COURSE: 4:20 p.m.: Patient seen and assessed by myself. Concern for possible osteomyelitis. IV established, labs, x-rays ordered and presumed patient will need MRI and admission. I did discuss my concern for osteomyelitis with the patient and asked him if he would would like orthopedic treatment including amputation and patient has agreed to this. I did confirm his DNR status. CHIEF COMPLAINT: Right foot pain/wound HPI: This is an 83-year-old male with a significant past medical history of peripheral vascular disease, chronic right foot wound with a history of osteomyelitis, type 2 diabetes, who presents to the emergency department by ambulance today for evaluation of a right foot wound. Patient reports the wound has been bothering him for "at least a couple weeks". According to EMS, patient had wound care coming and today they thought the wound was looking worse. Patient reports feeling chilled but there have been no documented fevers and he is afebrile in the ER. No reports of chest pain, palpitations, shortness of breath, abdominal pain, nausea vomiting or diarrhea. Patient reports he is wheelchair-bound. He reports stiffness in all of his extremities but cannot tell me why. EMS also incidentally reports a history of a 6 cm abdominal aortic aneurysm. Patient does have a signed DNR with him. PAST MEDICAL HISTORY: Cataracts, peripheral vascular disease, chronic kidney disease, bacteremia, hypertension, atrial fibrillation, abdominal aortic aneurysm, history of osteomyelitis, diabetes See nurse/triage notes for additional history if applicable Pertinent Past Surgical History: Prior ORIF of the left hip Family History: Unable to obtain Social History: Resident at [facility] REVIEW OF SYSTEMS: All other systems negative Constitutional: No fever, positive for chills, appetite change. Eyes: No discharge, vision change ENT: No sore throat, congestion, ear pain. Cardiovascular: No chest pain, no palpitations. Respiratory: No cough, no shortness of breath. Gastrointestinal: No abdominal pain, no vomiting, diarrhea. Genitourinary: No hematuria, dysuria, flank pain, pelvic pain Musculoskeletal: No back pain, positive for joint swelling, positive for joint pain, myalgias. Skin: Positive for right foot wounds Neurological: No headache, dizziness, weakness. PHYSICAL EXAM: General Appearance: Alert, oriented, appropriate, frail, chronically ill- appearing cooperative, NAD, well hydrated, non-toxic appearing, VSS, no hypoxia. HEENT: Oropharynx clear is no erythema or exudates, no tonsillar hypertrophy or asymmetry. Dentition without abnormality.] Eyes: PERRLA, no acute vision change, nystagmus, swelling, discharge, pain or photosensitivity. Conjunctiva pink, no pallor or injection Neck: Supple, nontender, no lymphadenopathy, no midline pain, FROM, no meningismus. Respiratory: There are no retractions, lungs are clear to auscultation. Cardiac: Regular rate and rhythm, no murmurs or gallops. Gastrointestinal: Abdomen is soft, nontender, bowel sounds normal, no masses/ hernia, no rigidity, guarding or focal peritoneal findings. Neurological: [ Alert and oriented x 3 Skin: 3 shallow ulcers noted to the right foot. First ulcer is just inferior to the fibula, 2nd ulcer to the mid forefoot, 3rd all large ulcer on the heel. These are covered by dressings applied by wound care. Foul smell noted. Surrounding inflammation and erythema to the entire heel noted. Patient does report pain to palpation of this area. Intact pedal and posterior tibialis pulses. Musculoskeletal: [Rigid bilateral lower extremities. Patient is unable to extend either leg and prefers to have left leg crossed over right leg. Pain to palpation along the right foot associated with erythema and swelling to the heel Psychiatric: Patient is oriented X 3, there is no agitation. MEDICAL DECISION MAKING: Patient was seen independently. Secondary supervising physician at time of evaluation was Dr. Nguyen . Diagnosis: Right foot cellulitis with possible osteomyelitis. New, requires workup Summary: See Assessment and Plan for summary of ED visit Clinical lab tests: ordered / reviewed. Independent visualization of images, tracing, or specimens: Yes / No. Decision to obtain medical records or history from someone other than the patient: Melissa Navarro records Review / Summarize previous medical records: Yes Discussed patient with another provider: Dr. Nguyen Patient Progress: Stable at time of sign-out. (Thomas Guzmán) Medical Decision Making: Independent physician evaluation: I evaluated and participated in the management of the patient. I also evaluated the patient independently. My co-signature indicates that I have reviewed this chart and I agree with the findings and plan of care as documented. My personal H&P findings include: Patient presents the emergency department for evaluation of possible osteomyelitis. The patient has a complicated past medical history. The patient was recently admitted to the hospital with sepsis from presumed aspiration pneumonia. At some point time the patient is developed some ulcers to his right leg. The patient was noted to have an elevated sed rate of 47. He had plain films obtained as an outpatient which demonstrated no evidence of osteomyelitis. The patient denies any history of fall or trauma. The patient does have some chronic pain in that lower extremity. The patient denies any fever or chills. Physical exam: General Appearance: Thin male, deconditioned, no acute distress Eyes: Pupils equal and round no pallor or injection ENT, Mouth: Mucous membranes moist Respiratory: There are no retractions, lungs are clear to auscultation Cardiovascular: Regular rate and rhythm Gastrointestinal: Abdomen is soft and nontender, no masses, bowel sounds normal Neurological: Grossly normal motor exam Skin: Multiple ulcerations noted to the right lower extremity, mild surrounding erythema, no fluctuance Musculoskeletal: Neck is supple nontender ED course: I reviewed a arterial ultrasound performed on the right lower extremity last week which demonstrated no evidence of arterial occlusion. X-rays obtained in the emergency department which demonstrates no obvious osteomyelitis. This is consistent with the patient's prior outpatient imaging. Patient will require admission to the hospital for further evaluation and management. The patient will be admitted to the hospitalist by Dr. Wilson. Infectious disease and surgery will be consulted. I am in the process of reviewing the patient's prior contact with the surgical service. The patient has no evidence of sepsis or SIRS. Initial venous lactate is reassuring. Infectious Disease has been consulted at 5:45 p.m. (James Nguyen) - Diagnostics Imaging Results: Imaging Impressions Foot X-Ray 10/07/18 16:23 Impression: Negative for fracture. No convincing evidence for osteomyelitis. Results called and discussed with Dr. Nguyen on 10/07/2018 at 17:03. - Objective Vital Signs: Initial Vital Signs Temperature (C) 37.1 C 10/07/18 16:18 Heart Rate 63 10/07/18 16:18 Respiratory Rate 16 10/07/18 16:18 Blood Pressure 125/53 H 10/07/18 16:18 O2 Sat (%) 93 10/07/18 16:18 O2 Delivery Mode Room Air Allergies/Adverse Reactions: Tetracyclines Allergy (Intermediate, Verified 10/07/18 16:21) Vomiting azithromycin Allergy (Unknown, Verified 10/07/18 16:21) Itching nitrofurantoin [From Macrobid] Allergy (Unknown, Verified 10/07/18 16:21) nitrofurantoin macrocrystalline [From Macrobid] Allergy (Unknown, Verified 10/07 16:21) Sulfa (Sulfonamide Antibiotics) Allergy (Unknown, Verified 10/07/18 16:21) Home Medications: Medication Instructions Recorded Apixaban [Eliquis] 5 mg PO BID 07/15/18 Polyethylene Glycol 3350 [Miralax 17 gm PO DAILY PRN 07/15/18 17 gm (*)] Sennosides/Docusate Sodium 1 each PO BID 07/15/18 [Senna-S Tablet] Tamsulosin HCl [Flomax 0.4 MG (*)] 0.4 mg PO DAILY 07/15/18 Bisacodyl [Dulcolax] 10 mg RC DAILY PRN 09/06/18 Cholecalciferol Vit D3 [Vitamin D3 50,000 unit PO Q7D 09/06/18 (*)] Ferrous Sulfate [Ferrous Sulf 325 325 mg PO BID 09/06/18 MG (*)] Magnesium Hydroxide [Milk of 30 ml PO DAILY PRN 09/06/18 Magnesia] guaiFENesin [Mucinex 600 MG (*)] 600 mg PO BID 09/06/18 Diltiazem [Cardizem Ir Q6hr] 30 mg PO Q6HRS tab 09/11/18 Laboratory Results: Laboratory Results 10/07/18 17:00 10/07/18 17:37 10/07/18 10/07/18 10/07/18 17:37 17:00 17:00 WBC 7.11 10^3/uL 10^3/uL (3.80-9.50) RBC 4.43 10^6/uL 10^6/uL (4.40-6.38) Hgb 10.0 g/dL L g/dL (13.7-17.5) Hct 33.5 % L % (40.0-51.0) MCV 75.6 fL L fL (81.5-99.8) MCH 22.6 pg L pg (27.9-34.1) MCHC 29.9 g/dL L g/dL (32.4-36.7) RDW 18.8 % H % (11.5-15.2) Plt Count 173 10^3/uL 10^3/uL (150-400) MPV 10.2 fL fL (8.7-11.7) Neut % (Auto) 77.9 % H % (39.3-74.2) Lymph % (Auto) 14.8 % L % (15.0-45.0) [place] % (Auto) 5.6 % % (4.5-13.0) Eos % (Auto) 1.0 % % (0.6-7.6) Baso % (Auto) 0.3 % % (0.3-1.7) Nucleat RBC Rel Count 0.0 % % (0.0-0.2) Absolute Neuts (auto) 5.54 10^3/uL 10^3/uL (1.70-6.50) Absolute Lymphs (auto) 1.05 10^3/uL 10^3/uL (1.00-3.00) Absolute Monos (auto) 0.40 10^3/uL 10^3/uL (0.30-0.80) Absolute Eos (auto) 0.07 10^3/uL 10^3/uL (0.03-0.40) Absolute Basos (auto) 0.02 10^3/uL 10^3/uL (0.02-0.10) Absolute Nucleated RBC 0.00 10^3/uL 10^3/uL (0-0.01) Immature Gran % 0.4 % % (0.0-1.1) Immature Gran # 0.03 10^3/uL 10^3/uL (0.00-0.10) ESR 96 MM/HR H MM/HR (0-20) VBG Lactic Acid Sodium REJ REJ Potassium REJ REJ Chloride REJ REJ Carbon Dioxide REJ REJ Anion Gap REJ REJ BUN REJ REJ Creatinine REJ REJ Estimated GFR REJ REJ Glucose REJ REJ Calcium REJ REJ C-Reactive Protein REJ REJ 10/07/18 17:00 WBC RBC Hgb Hct MCV MCH MCHC RDW Plt Count MPV Neut % (Auto) Lymph % (Auto) [place] % (Auto) Eos % (Auto) Baso % (Auto) Nucleat RBC Rel Count Absolute Neuts (auto) Absolute Lymphs (auto) Absolute Monos (auto) Absolute Eos (auto) Absolute Basos (auto) Absolute Nucleated RBC Immature Gran % Immature Gran # ESR VBG Lactic Acid 1.2 mmol/L mmol/L (0.7-2.1) Sodium Potassium Chloride Carbon Dioxide Anion Gap BUN Creatinine Estimated GFR Glucose Calcium C-Reactive Protein Medications Given: Discontinued Medications Fentanyl (Sublimaze) 25 mcg IVP EDNOW ONE Stop: 10/07/18 16:25 Last Admin: 10/07/18 16:59 Dose: 25 mcg Sodium Chloride (Ns) 1,000 mls @ 0 mls/hr IV EDNOW ONE; Wide Open PRN Reason: Protocol Stop: 10/07/18 16:24 Last Admin: 10/07/18 16:58 Dose: 1,000 mls Departure - Departure Disposition: [facility] Inpatient Acute Clinical Impression: Ulcer of right lower leg, Peripheral vascular disease Condition: Fair Referrals: JAMES MORENO [Primary Care Provider] - As per Instructions
[2018-10-07 17:20] LABS: PLATELET COUNT 173 10^3/uL (150-400)
[2018-10-07] MEDS ORDERED: ONDANSETRON DISINTEGRATING 4 MG TAB PO PRN (18:11)
[2018-10-07] MEDS ORDERED: ONDANSETRON 4 MG/2 ML VIAL IVP PRN (18:11)
--- NOTE | 2018-10-07 20:00 | PDGENHP ---
History and Physical - Chief Complaint R heel wound - History of Present Illness Adams Cameron is a 83 yo M with a PMHx of A Fib on Elaquis, BPH, HARSHIL, LLE osteomyelitis who presents to [facility] for RLE wound. He was being seen in wound care clinic earlier today where the wound appeared worse and was sent to ED. He denies any fevers or chills, chest pain, SOB, n/v, d/c, edema, palpitations. He has been followed by Dr. Dietrich of surgery and ID in the past. History Information - Allergies/Home Medication List Allergies/Adverse Reactions: Tetracyclines Allergy (Intermediate, Verified 10/07/18 16:21) Vomiting azithromycin Allergy (Unknown, Verified 10/07/18 16:21) Itching nitrofurantoin [From Macrobid] Allergy (Unknown, Verified 10/07/18 16:21) nitrofurantoin macrocrystalline [From Macrobid] Allergy (Unknown, Verified 10/07 16:21) Sulfa (Sulfonamide Antibiotics) Allergy (Unknown, Verified 10/07/18 16:21) Home Medications: Polyethylene Glycol 3350 [Miralax 17 gm (*)] 17 gm PO DAILY PRN 07/15/18 [Last Taken Unknown] Sennosides/Docusate Sodium [Senna-S Tablet] 1 each PO BID 07/15/18 [Last Taken 10/07/18 am dose only] Tamsulosin HCl [Flomax 0.4 MG (*)] 0.4 mg PO DAILY 07/15/18 [Last Taken 10/06/18 ] Ferrous Sulfate [Ferrous Sulf 325 MG (*)] 325 mg PO BID 09/06/18 [Last Taken am dose only] Magnesium Hydroxide [Milk of Magnesia] 30 ml PO DAILY PRN 09/06/18 [Last Taken Unknown] guaiFENesin [Mucinex 600 MG (*)] 600 mg PO BID 09/06/18 [Last Taken 10/07/18 am dose only] Acetaminophen [Tylenol ES 500 mg (*)] 1,000 mg PO Q8 PRN 10/07/18 [Last Taken ] Apixaban [Eliquis] 5 mg PO BID 10/07/18 [Last Taken 10/07/18 am dose only] Baclofen 5 mg PO HS 10/07/18 [Last Taken 10/06/18] Bisacodyl [Dulcolax] 10 mg MT DAILY PRN 10/07/18 [Last Taken Unknown] Cholecalciferol Vit D3 [Vitamin D3 (*)] 50,000 unit PO TH 10/07/18 [Last Taken 10/01/18] Collagenase [Santyl (*)] 30 alice TP DAILY 10/07/18 [Last Taken 10/07/18] Diltiazem HCl 30 mg PO QID 10/07/18 [Last Taken 10/07/18 two doses] Mupirocin 2% [Bactroban 2% Oint (RX)] 1 alice TP DAILY 10/07/18 [Last Taken ] amLODIPine BESYLATE [Norvasc 5 mg (*)] 5 mg PO DAILY 10/07/18 [Last Taken ] fentaNYL [Duragesic 12 MCG Patch (*)] 12 mcg TD Q72H 10/07/18 [Last Taken ] traMADol [Ultram 50 mg (*)] 50 mg PO Q4 10/07/18 [Last Taken 10/07/18 two doses] I have personally reviewed and updated: family history, medical history, social history, surgical history Past Medical History: See HPI - Past Medical History Additional medical history: Hypertension. Abdominal aortic aneurysm > 6 cm. repair and stent was recommended by Dr. Dietrich and Dr. Srinivasan however patient has declined intervention. Peripheral vascular disease. Diabetes type 2, diet controlled. History of falls. Spinal stenosis with history of right footdrop. Vertigo. History Of osteomyelitis. psoriasis. BPH with history of urinary retention requiring catheter. History PE DVT, recent RLE DVT. Cataracts in and blindness but patient has declined any repair. Anxiety. Paroxysmal atrial fib flutter. - Surgical History Additional surgical history: Appendectomy. Left hip hemiarthroplasty after fracture 09/06/2017. Right hip ORIF 05/2018 - Family History Positive for: stroke (In mother) - Social History Smoking Status: Former smoker Additional social history: Patient currently lives at [facility]. He has no family in this area reports having 1 daughter in [place], [place]. MDPOA is Velia Richmond a good friend and neighbor. Review of Systems Review of Systems: ROS: 10pt was reviewed & negative except for what was stated in HPI & below Physical Exam Physical Exam: Temp Pulse Resp BP Pulse Ox 37.1 C 70 18 136/71 H 94 10/07/18 16:18 10/07/18 18:00 10/07/18 18:00 10/07/18 18:00 10/07/18 18:00 Constitutional: no apparent distress, chronically ill appearing Eyes: PERRL Ears, Nose, Mouth, Throat: moist mucous membranes Cardiovascular: regular rate and rhythym Respiratory: no respiratory distress Gastrointestinal: soft, non-tender abdomen Skin: warm, abrasion, erythema, pressure ulcer Musculoskeletal: generalized weakness Neurologic: AAOx3 Psychiatric: interacting appropriately Lab Data & Imaging Review 10/07/18 17:00 10/07/18 18:25 WBC 7.11 10^3/uL (3.80-9.50) 10/07/18 17:00 RBC 4.43 10^6/uL (4.40-6.38) 10/07/18 17:00 Hgb 10.0 g/dL (13.7-17.5) L 10/07/18 17:00 Hct 33.5 % (40.0-51.0) L 10/07/18 17:00 MCV 75.6 fL (81.5-99.8) L 10/07/18 17:00 MCH 22.6 pg (27.9-34.1) L 10/07/18 17:00 MCHC 29.9 g/dL (32.4-36.7) L 10/07/18 17:00 RDW 18.8 % (11.5-15.2) H 10/07/18 17:00 Plt Count 173 10^3/uL (150-400) 10/07/18 17:00 MPV 10.2 fL (8.7-11.7) 10/07/18 17:00 Neut % (Auto) 77.9 % (39.3-74.2) H 10/07/18 17:00 Lymph % (Auto) 14.8 % (15.0-45.0) L 10/07/18 17:00 [place] % (Auto) 5.6 % (4.5-13.0) 10/07/18 17:00 Eos % (Auto) 1.0 % (0.6-7.6) 10/07/18 17:00 Baso % (Auto) 0.3 % (0.3-1.7) 10/07/18 17:00 Nucleat RBC Rel Count 0.0 % (0.0-0.2) 10/07/18 17:00 Absolute Neuts (auto) 5.54 10^3/uL (1.70-6.50) 10/07/18 17:00 Absolute Lymphs (auto) 1.05 10^3/uL (1.00-3.00) 10/07/18 17:00 Absolute Monos (auto) 0.40 10^3/uL (0.30-0.80) 10/07/18 17:00 Absolute Eos (auto) 0.07 10^3/uL (0.03-0.40) 10/07/18 17:00 Absolute Basos (auto) 0.02 10^3/uL (0.02-0.10) 10/07/18 17:00 Absolute Nucleated RBC 0.00 10^3/uL (0-0.01) 10/07/18 17:00 Immature Gran % 0.4 % (0.0-1.1) 10/07/18 17:00 Immature Gran # 0.03 10^3/uL (0.00-0.10) 10/07/18 17:00 ESR 96 MM/HR (0-20) H 10/07/18 17:00 VBG Lactic Acid 1.2 mmol/L (0.7-2.1) 10/07/18 17:00 Sodium 137 mEq/L (135-145) 10/07/18 18:25 Potassium 4.2 mEq/L (3.5-5.2) 10/07/18 18:25 Chloride 105 mEq/L (97-110) 10/07/18 18:25 Carbon Dioxide 26 mEq/l (22-31) 10/07/18 18:25 Anion Gap 6 mEq/L (6-14) 10/07/18 18:25 BUN 31 mg/dL (7-23) H 10/07/18 18:25 Creatinine 1.1 mg/dL (0.7-1.3) 10/07/18 18:25 Estimated GFR > 60 10/07/18 18:25 Glucose 96 mg/dL (70-100) 10/07/18 18:25 Calcium 8.4 mg/dL (8.5-10.4) L 10/07/18 18:25 C-Reactive Protein REJ 10/07/18 17:37 Assessment & Plan Assessment: Ulcer of right lower leg (Acute) - Multiple ulcers on RLE, largest on heel - XR performed on admission not showing signs of osteomyelitis - Patient not meeting sepsis criteria on admission - ED consulted Dr. Dietrich of General surgery, will see patient in the AM - ED also consulted Dr. Mauricio of ID who said that he will see patient in the AM, no need for abx overnight - MRI of RLE ordered to further evaluate for osteo - Blood cultures x2 collected Hx of A Fib - Continue home Diltiazem - Will continue home Elaquis for now, hold if general surgery to take to OR - Continue to monitor on telemetry BPH - Continue home Flomax HARSHIL - Hemoglobin around baseline - Continue home Fe Sulfate FEN: Regular, NPO at midnight DVT PPx: Home Elaquis Code: DNR Dispo: Admit to Medicine
[2018-10-07] MEDS ORDERED: POLYETHYLENE GLYCOL 3350 17 GM PKT PO PRN (20:08)
[2018-10-07] MEDS ORDERED: BISACODYL 10 MG SUPP PR PRN (20:08)
[2018-10-07] MEDS ORDERED: OLANZapine 10 MG/2 ML VIAL ONE (20:43)
[2018-10-07] MEDS ORDERED: OLANZapine 10 MG/2 ML VIAL IM ONE (20:44)
[2018-10-07] MEDS ORDERED: fentaNYL 12 MCG PATCH TD SCH (22:00)
[2018-10-07] MEDS: traMADol 50 MG TAB PO SCH (22:19)
[2018-10-07] MEDS: DILTIAZEM 30 MG TAB PO SCH (22:20)
[2018-10-07] MEDS: SENNOSIDES/DOCUSATE SODIUM TAB PO SCH (22:20)
[2018-10-07] MEDS: APIXABAN 5 MG TAB PO SCH (22:20)
[2018-10-07] MEDS: FERROUS SULFATE 325 MG TAB PO SCH (22:20)
[2018-10-07] MEDS: BACLOFEN 10 MG TAB PO SCH (22:21)
[2018-10-08] MEDS: traMADol 50 MG TAB PO SCH ×6 (01:49→21:28)
[2018-10-08] MEDS: DILTIAZEM 30 MG TAB PO SCH ×4 (05:17→21:28)
[2018-10-08 07:06] LABS: PLATELET COUNT 201 10^3/uL (150-400)
--- NOTE | 2018-10-08 08:42 | ASMTLACE ---
HERMINIA Acuity / Level of Answers: Yes Care: Did the patient have an inpatient admission? Comorbidities - select Answers: Diabetes (uncontrolled or all that apply controlled) History of falls Opioid dependence / Chronic pain Peripheral vascular disease Other Notes: HTN; AFib; Hx of DVT/PE # of Emergency department Answers: 5-8 visits in the last 6 months Social determinants Answers: Mental health diagnosis (anxiety, depression, pers onality disorders, etc.) Score: 20 Date Signed: 10/08/2018 08:42 AM Electronically Signed By:Antionette Lomeli
--- NOTE | 2018-10-08 09:27 | PDMN ---
Medical Necessity Medical necessity: Pt meets IP criteria per & MCG PG-WS Wound & Skin Management; est los >2 for eval/tx of RLE ulcers; r/o osteomyelitis; admit for further workup/monitoring, Surgery/ID/Wound Care consults & therapies; hx osteomyelitis, AFIB on AC, PVD, diabetes; per H&P & order 10/07/17
--- NOTE | 2018-10-08 09:37 | ASMTCMCOM ---
CM Note CM Note Notes: Patient sent to hospital after appt at wound care clinic revealed that his RLE wounds were worsening. Fortunately, intial imaging does not suggest osteomyelitis. Surgery and ID consults ordered. Patient lives in [facility] care at [facility]. Depending on PT/OT evals, he may benefit from some rehab at [facility] on d/c. JACOB is friend Velia. We will follow. Current CM Discharge plan: [facility] (SNF vs back to LTC) Date Signed: 10/08/2018 09:37 AM Electronically Signed By:Sonia Padilla RN
--- NOTE | 2018-10-08 13:09 | PDCONSULT ---
[employer] Note: Infectious Diseases Consult Note Impression: 83-year-old man with necrotic right heel wound with adherent eschar. Wound is malodorous but there is no surrounding erythema suggestive of expanding soft tissue infection, in addition to an absence of chronic osteomyelitis findings on right foot x-ray. Hold off antibiotics as wound Care and possible debridement would be more definitive therapy. 1. Necrotic right heel wound without active signs of infection 2. History of dementia 3. History of streptococcal bloodstream infection 07/12/2018 4. History of right hip arthroplasty 06/08/2018 5. Pre diabetes based on hemoglobin A1c of 6% obtained on 09/23/2018 Plan: 1. No systemic antibiotics indicated at this time 2. Likely will require debridement of the heel ulceration and aggressive wound care if consistent with goals of care 3. ID to follow James De Leon MD Infectious Diseases Chief Complaint: Brought to hospital due to worsening right heel wound Requesting Provider: Dr. Wilson Reason for Referral: Consultation was requested by Dr. Wilson regarding antimicrobial management. HPI: 83-year-old man presented to hospital from care facility due to worsening of his right heel chronic wound. The patient is not cooperative with attempts at obtaining a history directly from him due to this fact the following history is summarized from the medical record extending back through his hip replaced in May of 2018. Review of emergency department documentation reveals the patient was brought to the hospital via ambulance due to wound care at his care facility recognizing that the right heel wound seemed worse, is not clear from documentation what exactly was worse. Patient apparently told the emergency department that he had noticed some chills but no fevers, and no documentation of fevers or hypothermia by available care facility documentation. This is also notable that he was discharged from this hospital at the end of August with a diagnosis of aspiration pneumonia and was given a course of Augmentin, unclear of the total duration but he presented on that admission with sepsis physiology that resolved with antimicrobial therapy. In addition to his white blood cell count improving it was noted that his mentation had returned to his baseline level of dementia. In June of 2018 he was also noted to have a streptococcal bloodstream infection secondary to right lower extremity cellulitis. This episode of cellulitis developed approximately 1 month after a right hip replacement due to a hip fracture. It was determined at that time to the right hip prosthesis was not infected. Although patient is minimally cooperative in history he does not complain of right hip pain. Patient states he has pain in the right heel. He also states that he is hungry and wants to be left alone. He did not receive any antibiotics in the emergency department or since admission. Reviewed patient medical records in [facility], and [facility] ([facility] Past Medical History: Group C/G streptococcal bloodstream infection 07/12/2018 Past Surgical History: Right hip arthroplasty secondary to fracture, 06/08/2018 Social History: Patient refuses to answer social history questions Family History: Patient refuses to answer social history questions Allergies: Tetracyclines, azithromycin, nitrofurantoin, sulfa; reviewed from medical record patient not answering questions about reactions Medications: Patient not cooperative with history ROS: 10 organ systems reviewed; pertinent positives and negatives listed in the HPI, all other organ systems negative. Physical Exam: VS: Reviewed Gen: No acute distress; Breathing comfortably without supplemental oxygen; Able to speak in complete sentences Eyes: No conjunctival injection; No scleral icterus HENT: No gross deformities Neck: No limitation in range of motion Pulm: Breath sounds clear to the bases bilaterally; No wheeze, rhonchi, or rales CV: Normal S1 and S2; Regular rate and rhythm; No murmurs, rubs, or gallops; No lower extremity edema Abd: Not distended; Normo-active bowel sounds; Soft; Non-tender Skin: A full skin exam including exposed bilateral upper extremities, bilateral lower extremities to the knees, face, neck, abdomen, chest, and back performed; right heel with large eschar adherent to underlying tissues, strong malodorous smell, no surrounding erythema, no induration, no fluctuance areas; otherwise skin intact, warm, with no rash MSK: Joints without erythema or edema; No gross limitation in range of motion; right heel findings as above Ext: No clubbing or cyanosis Neuro: Somnolent; wakes to verbal and tactile stimuli Psych: Angry and not participating with history exam Labs/Imaging: All microbiology testing (culture and non-culture) reviewed in the medical record. Personally reviewed and interpreted the images of the following radiographs: Right heel and ankle x-ray showing intact cortical bone at the calcaneal head, no clear osteomyelitis. Elevated CRP on 09/23/2017 of 62. Microbiology Laboratory Tests 10/07/18 10/08/18 10/08/18 17:00 06:20 06:20 WBC 7.11 6.74 Hgb 10.0 L 9.4 L Plt Count 173 201 ESR 96 H Creatinine 0.9
[2018-10-08] MEDS: NS W/ 20 KCl/L 1,000 ML IV SCH (13:22)
--- NOTE | 2018-10-08 13:51 | HOSPPROG ---
Hospitalist Progress Note Assessment/Plan: #Necrotic right LE and Heel ulcer -no current e/o OM -Awaiting Dr. Dietrich consultation for possible debridement -ID following, no indications for abx for now -Will provide IVF as the pt is NPO awaiting possible debridement #Hx of A Fib - Continue home Diltiazem -Hold Eliquis while awaiting possible debridement #BPH - Continue home Flomax #HARSHIL - Hemoglobin around baseline - Continue home Fe Sulfate #Advance Dementia -Palliative to see to determine terminal manager goals FEN: NPO currently. There is some concerns for aspiration and the pt will have Speech eval DVT PPx: on Eliquis, which is currently being held Code: DNR Dispo: cont inpatient Subjective: no complaints. somewhat confused. no cp or sob. Objective: Vital Signs Temp Pulse Resp BP Pulse Ox 36.2 C 67 14 130/57 H 92 10/08/18 11:44 10/08/18 11:44 10/08/18 11:44 10/08/18 11:44 10/08/18 11:44 Laboratory Results 10/08/18 06:20 10/08/18 06:20 - Physical Exam Constitutional: no apparent distress Eyes: PERRL, EOMI Ears, Nose, Mouth, Throat: moist mucous membranes, hearing normal Cardiovascular: regular rate and rhythym, No edema Respiratory: no respiratory distress, no rales or rhonchi, clear to auscultation Gastrointestinal: normoactive bowel sounds Skin: warm Neurologic: No AAOx3 Psychiatric: interacting appropriately, not anxious, encephalopathic Lymph, Heme, Immunologic: No petechiae ICD10 Worksheet Patient Problems: Problems Problem Status Onset Peripheral vascular disease Acute Ulcer of right lower leg Acute Acute kidney injury Acute Atrial flutter Acute Cervical strain Acute DVT (deep venous thrombosis) Acute Dehydration Acute Displaced fracture of right femoral neck Acute Elevated troponin Acute Fever Acute Head injury Acute Hypoxemia Acute Hypoxia Acute Nausea, vomiting, and diarrhea Acute Palliative care encounter Acute Pancreatitis Acute Pneumonia Acute Pulmonary embolus Acute Severe sepsis Acute Toe infection Acute Vomiting Acute chronic disease mgmt/transitional care Acute
[2018-10-08] MEDS ORDERED: LORazepam 2 MG/ML INJ IVP ONE (14:30)
[2018-10-08] MEDS ORDERED: GADOBUTROL 10 ML VIAL IVP ONE (15:24)
--- NOTE | 2018-10-08 16:56 | WOCRNPDOC ---
LIZ Advanced Assessment Note - Skin Integrity Problem, Advanced Assess Left Ischial Tuberosity Pressure Injury Dressing Type: AllevWikiRealty Life Dressing Description: Clean/Dry, Intact Closure Description: Not Approximated Integumentary Issue Intervention: Visualized Under Dressing Cassi Wound Tissue: Non-blanching, Intact Wound Bed Color: [place] Wound Edges: Attached, Well Defined Site Measurement - Head-to-Toe Length X Width X Depth (cm): 1.2x1.2x0.1 Pressure Injury Stage: Stage 2 Pressure Injury Present on Admit: Yes Skin Integrity Problem Comment: Patient with a small, non-blancing area to the left ischium with scattered partial thickness openings. This wound presents as a stage 2 pressure injury present on admission. Wound care will round again next week.
[2018-10-08] MEDS: amLODIPine BESYLATE 5 MG TAB PO SCH (17:30)
[2018-10-08] MEDS: APIXABAN 5 MG TAB PO SCH (17:30)
[2018-10-08] MEDS: COLLAGENASE 30 GM OINTMENT TP SCH (17:31)
[2018-10-08] MEDS: FERROUS SULFATE 325 MG TAB PO SCH ×2 (17:31→21:28)
[2018-10-08] MEDS: MUPIROCIN 2% 22 GM OINT TP SCH (17:32)
[2018-10-08] MEDS: TAMSULOSIN HCL 0.4 MG CAP PO SCH (18:06)
[2018-10-08] MEDS: SENNOSIDES/DOCUSATE SODIUM TAB PO SCH ×2 (18:07→21:28)
[2018-10-08 20:00] LABS: PLATELET COUNT 225 10^3/uL (150-400)
--- NOTE | 2018-10-08 20:55 | WOCRNPDOC ---
LIZ Advanced Assessment Note - Skin Integrity Problem, Advanced Assess Right Heel Pressure Injury Dressing Type: Allevyn Life Dressing Description: Clean/Dry, Intact Exudate Amount: None Integumentary Issue Intervention: Dressing Changed Cassi Wound Tissue: Intact Wound Bed Color: Black Wound Bed Constitution: Stable Eschar Wound Edges: Attached, Well Defined Site Measurement - Head-to-Toe Length X Width X Depth (cm): [id number] Pressure Injury Stage: Unstageable Pressure Injury Present on Admit: Yes Skin Integrity Problem Comment: Allevyn life removed from right heel. Wound bed is black, stable eschar. Patient complains of pain with palpation. Current plan is for Dr. Dietrich to assess wound to evaluate for debridement. Will hold off implementing a plan until he is able to see wound. Recovered with Allevyn and pressure relieving boot placed to right foot.
[2018-10-08] MEDS: BACLOFEN 10 MG TAB PO SCH (21:28)
--- NOTE | 2018-10-08 23:41 | SOAPPROG ---
SOAP Progress Note Assessment/Plan: Assessment: 83 male with severe posterior calcaneal full thickness pressure sore rt foot difficult to find pedal pulses with poorly cooperative pt requiring sedation for mri exam present situation will be impossible to heal unless he is very compliant with offloading any pressure on rt heel mri pending Plan:heel suspension boot/ art studies 10/08/18 23:37 Objective: Vital Signs Temp Pulse Resp BP Pulse Ox 36.8 C 76 16 129/66 H 93 10/08/18 20:38 10/08/18 21:28 10/08/18 20:38 10/08/18 21:28 10/08/18 20:38 Laboratory Results 10/08/18 19:47 10/08/18 19:47 10/07/18 10/08/18 10/09/18 05:59 05:59 05:59 Intake Total 240 Balance 240 ICD10 Worksheet Patient Problems: Problems Problem Status Onset Peripheral vascular disease Acute Ulcer of right lower leg Acute Acute kidney injury Acute Atrial flutter Acute Cervical strain Acute DVT (deep venous thrombosis) Acute Dehydration Acute Displaced fracture of right femoral neck Acute Elevated troponin Acute Fever Acute Head injury Acute Hypoxemia Acute Hypoxia Acute Nausea, vomiting, and diarrhea Acute Palliative care encounter Acute Pancreatitis Acute Pneumonia Acute Pulmonary embolus Acute Severe sepsis Acute Toe infection Acute Vomiting Acute chronic disease mgmt/transitional care Acute
[2018-10-09] MEDS: traMADol 50 MG TAB PO SCH ×5 (02:30→22:21)
[2018-10-09] MEDS: NS W/ 20 KCl/L 1,000 ML IV SCH ×2 (03:12→17:51)
[2018-10-09] MEDS: DILTIAZEM 30 MG TAB PO SCH ×4 (05:28→22:20)
[2018-10-09] MEDS: HYDROmorphONE/DILAUDID 1 MG/ML INJ IVP PRN ×2 (08:11→13:53)
[2018-10-09] MEDS: fentaNYL 12 MCG PATCH TD SCH (08:11)
[2018-10-09] MEDS: amLODIPine BESYLATE 5 MG TAB PO SCH ×2 (09:42→12:57)
[2018-10-09] MEDS: SENNOSIDES/DOCUSATE SODIUM TAB PO SCH ×2 (09:43→22:22)
[2018-10-09] MEDS: FERROUS SULFATE 325 MG TAB PO SCH ×2 (09:43→22:22)
[2018-10-09] MEDS: TAMSULOSIN HCL 0.4 MG CAP PO SCH (09:43)
--- NOTE | 2018-10-09 12:41 | PCMIDPN ---
Assessment/Plan: Assessment: 83-year-old man with necrotic right heel wound and adherent eschar. MRI suggestive that there may be some early osteomyelitis underlying the tissue loss of the right calcaneus. Will currently withhold antibiotics pending determination if there is benefit to this patient to undergo debridement , which will be the ideal treatment course in conjunction with antibiotics with the duration that would be determined by the extent debridement. 1. Necrotic right heel wound is without active signs of infection, possible early underlying osteomyelitis 2. History of dementia 3. History of streptococcal bloodstream infection 07/12/2018 4. History of right hip arthroplasty 06/08/2018 5. Prediabetes based on hemoglobin A1c of 6% obtained on 09/23/2018 Plan: 1. No systemic antibiotics indicated at this time 2. Any antimicrobial therapy will be directed by potential surgical debridement cultures, with overall duration dependent on degree of debridement James De Leon MD Infectious Diseases 10/09/18 12:39 Subjective: Patient resting comfortably after given pain medications. He was not woken but discussed plan of care with the nurse at bedside with MRI obtained. Objective: Vital Signs Temp Pulse Resp BP Pulse Ox 36.6 C 68 18 122/59 H 98 10/09/18 11:38 10/09/18 11:38 10/09/18 11:38 10/09/18 11:38 10/09/18 11:38 Laboratory Results 10/08/18 19:47 10/08/18 19:47 10/08/18 10/09/18 10/10/18 05:59 05:59 05:59 Intake Total 240 Output Total 650 Balance -410 ESR 96 MM/HR (0-20) H 10/07/18 17:00 C-Reactive Protein REJ 10/07/18 17:37 Microbiology 10/07/18 19:15 Blood Blood Culture - Preliminary 10/07/18 18:49 Blood Blood Culture - Preliminary Laboratory Tests 10/08/18 10/08/18 10/08/18 06:20 06:20 19:47 WBC 6.74 8.57 Hgb 9.4 L 10.9 L Plt Count 201 225 Creatinine 0.9 10/08/18 19:47 WBC Hgb Plt Count Creatinine 0.9 - Physical Exam General Appearance: no apparent distress, non-toxic, other (Sleeping comfortably ) Respiratory: No accessory muscle use Neuro/Psych: other (Sleeping comfortably) ICD10 Worksheet Patient Problems: Problems Problem Status Onset Peripheral vascular disease Acute Ulcer of right lower leg Acute Acute kidney injury Acute Atrial flutter Acute Cervical strain Acute DVT (deep venous thrombosis) Acute Dehydration Acute Displaced fracture of right femoral neck Acute Elevated troponin Acute Fever Acute Head injury Acute Hypoxemia Acute Hypoxia Acute Nausea, vomiting, and diarrhea Acute Palliative care encounter Acute Pancreatitis Acute Pneumonia Acute Pulmonary embolus Acute Severe sepsis Acute Toe infection Acute Vomiting Acute chronic disease mgmt/transitional care Acute
--- NOTE | 2018-10-09 15:49 | HOSPPROG ---
Hospitalist Progress Note Assessment/Plan: #Necrotic right LE and Heel ulcer -no current e/o OM -Awaiting Dr. Dietrich consultation for possible debridement -ID following, no indications for abx on admission. MRI now shows possible posterior lateral calcaneal osteomyelitis. will await further reccs from ID #Hx of A Fib - Continue home Diltiazem, did not get due to confusion this morning. Nursing to attempt again mid morning -Hold Eliquis while awaiting possible debridement #BPH - Continue home Flomax #HARSHIL - Hemoglobin around baseline - Continue home Fe Sulfate #Advance Dementia -Palliative to see to determine halfway goals FEN: NPO currently. There is some concerns for aspiration and will have ST eval DVT PPx: on Eliquis, which is currently being held Code: DNR Dispo: cont inpatient Subjective: confused. afebrile. VSS Objective: Vital Signs Temp Pulse Resp BP Pulse Ox 36.6 C 69 18 122/59 H 98 10/09/18 11:38 10/09/18 12:46 10/09/18 11:38 10/09/18 12:57 10/09/18 11:38 Laboratory Results 10/08/18 19:47 10/08/18 19:47 10/08/18 10/09/18 10/10/18 05:59 05:59 05:59 Intake Total 240 Output Total 650 Balance -410 - Physical Exam Constitutional: no apparent distress Eyes: PERRL, EOMI Ears, Nose, Mouth, Throat: moist mucous membranes Cardiovascular: regular rate and rhythym, No edema Respiratory: no respiratory distress, no rales or rhonchi Skin: warm Neurologic: No AAOx3 Psychiatric: encephalopathic Lymph, Heme, Immunologic: No petechiae ICD10 Worksheet Patient Problems: Problems Problem Status Onset Peripheral vascular disease Acute Ulcer of right lower leg Acute Acute kidney injury Acute Atrial flutter Acute Cervical strain Acute DVT (deep venous thrombosis) Acute Dehydration Acute Displaced fracture of right femoral neck Acute Elevated troponin Acute Fever Acute Head injury Acute Hypoxemia Acute Hypoxia Acute Nausea, vomiting, and diarrhea Acute Palliative care encounter Acute Pancreatitis Acute Pneumonia Acute Pulmonary embolus Acute Severe sepsis Acute Toe infection Acute Vomiting Acute chronic disease mgmt/transitional care Acute
[2018-10-09] MEDS: MUPIROCIN 2% 22 GM OINT TP SCH (18:52)
[2018-10-09] MEDS: COLLAGENASE 30 GM OINTMENT TP SCH (18:52)
[2018-10-09] MEDS: BACLOFEN 10 MG TAB PO SCH (22:21)
[2018-10-10] MEDS: traMADol 50 MG TAB PO SCH ×7 (02:52→21:50)
[2018-10-10] MEDS: NS W/ 20 KCl/L 1,000 ML IV SCH ×2 (05:28→20:16)
[2018-10-10] MEDS: DILTIAZEM 30 MG TAB PO SCH ×4 (05:31→21:52)
[2018-10-10] MEDS: HYDROmorphONE/DILAUDID 1 MG/ML INJ IVP PRN ×2 (08:59→16:20)
[2018-10-10] MEDS: SENNOSIDES/DOCUSATE SODIUM TAB PO SCH ×2 (10:27→21:48)
[2018-10-10] MEDS: amLODIPine BESYLATE 5 MG TAB PO SCH (10:27)
[2018-10-10] MEDS: TAMSULOSIN HCL 0.4 MG CAP PO SCH (10:27)
[2018-10-10] MEDS: FERROUS SULFATE 325 MG TAB PO SCH ×2 (10:27→21:50)
[2018-10-10] MEDS ORDERED: LORazepam 2 MG/ML INJ IVP ONE ×2 (10:54→15:30)
--- NOTE | 2018-10-10 11:03 | SOAPPROG ---
SOAP Progress Note Assessment/Plan: Assessment: Assessment/Plan: 83 male with severe posterior calcaneal full thickness pressure sore rt foot- concern for OM difficult to examine d/t lack of patient cooperation Needs debridement of calcaneal wound and wound on Malleolus needs CTA with run off to evaluate perfusion Discussed above with Myrna, she agrees with proposed plan CTA b/l LE today Surgery scheduled tomorrow 8 am ABIs with decreased blood flow and dampened wave forms worse at SFA S: patient unable to answer questions O: Very distressed with movement of lower limbs, removal of bandages afebrile no increased WOB RLE-calcaneal and malleolus wounds very malodorous with thick exudate on bandage Plan: 10/10/18 10:57 10/10/18 11:06 10/10/18 11:07 10/10/18 13:37 Objective: Vital Signs Temp Pulse Resp BP Pulse Ox 37.0 C 68 16 140/62 H 92 10/10/18 09:34 10/10/18 09:34 10/10/18 09:34 10/10/18 10:27 10/10/18 09:34 Laboratory Results 10/08/18 19:47 10/08/18 19:47 10/09/18 10/10/18 10/11/18 05:59 05:59 05:59 Intake Total 240 1755 Output Total 650 Balance -410 1755 ICD10 Worksheet Patient Problems: Problems Problem Status Onset Peripheral vascular disease Acute Ulcer of right lower leg Acute Acute kidney injury Acute Atrial flutter Acute Cervical strain Acute DVT (deep venous thrombosis) Acute Dehydration Acute Displaced fracture of right femoral neck Acute Elevated troponin Acute Fever Acute Head injury Acute Hypoxemia Acute Hypoxia Acute Nausea, vomiting, and diarrhea Acute Palliative care encounter Acute Pancreatitis Acute Pneumonia Acute Pulmonary embolus Acute Severe sepsis Acute Toe infection Acute Vomiting Acute chronic disease mgmt/transitional care Acute
--- NOTE | 2018-10-10 13:43 | HOSPPROG ---
Hospitalist Progress Note Assessment/Plan: 83 yo M with hx of advanced dementia presenting with necrotic right heel #Necrotic right LE and Heel ulcer concerning for osteomyelitis: MRI c/w possible posterior lateral calcaneal osteo, needs debridement per gen surg, RADHA abnormal and will get f/u cTA with run off to evaluate perfusion today with plans for surgery tomorrow, appreciated ID/gen surg #Hx of A Fib - Continue home Diltiazem -Hold Eliquis while awaiting possible debridement #BPH - Continue home Flomax #HARSHIL - Hemoglobin around baseline - Continue home Fe Sulfate #Advance Dementia -minimally verbal, resides at [facility] # Dispo: IP status DNR Patient new to my care. Old records reviewed and summarized as above. Care plan reviewed with Dr. Doty Subjective: patient with no acute overnight complaints, minimally verbal Objective: Vital Signs Temp Pulse Resp BP Pulse Ox 36.4 C 124 H 16 140/62 H 93 10/10/18 11:02 10/10/18 11:02 10/10/18 11:02 10/10/18 11:02 10/10/18 11:02 Laboratory Results 10/08/18 19:47 10/08/18 19:47 10/09/18 10/10/18 10/11/18 05:59 05:59 05:59 Intake Total 240 1755 Output Total 650 Balance -410 1755 awake minimally responsive anicteric op clear poor dentition rrr no mrg cta b soft nt nd no cce, foul smelling calcaneal wound moves spontaneously, not verbally interactive ICD10 Worksheet Patient Problems: Problems Problem Status Onset DVT (deep venous thrombosis) Acute Acute kidney injury Acute Fever Acute Hypoxia Acute Severe sepsis Acute Ulcer of right lower leg Acute Peripheral vascular disease Acute chronic disease mgmt/transitional care Acute Nausea, vomiting, and diarrhea Acute Pancreatitis Acute Dehydration Acute Hypoxemia Acute Head injury Acute Cervical strain Acute Pulmonary embolus Acute Elevated troponin Acute Palliative care encounter Acute Pneumonia Acute Toe infection Acute Atrial flutter Acute Vomiting Acute Displaced fracture of right femoral neck Acute
[2018-10-10] MEDS: MUPIROCIN 2% 22 GM OINT TP SCH (14:44)
[2018-10-10] MEDS: COLLAGENASE 30 GM OINTMENT TP SCH (14:55)
[2018-10-10] MEDS ORDERED: IOPAMIDOL (ISOVUE 370) 100 ML BTL IV ONE (15:41)
--- NOTE | 2018-10-10 16:41 | ASMTCMCOM ---
CM Note CM Note Notes: Pt lives in long tee care at [facility], may benefit from some rehab there but pt too confused to work with PT or OT today. EMELIAOA is friend Velia CARTER Plan: [facility]/ [facility] Date Signed: 10/10/2018 04:41 PM Electronically Signed By:Mary Cobb RN
[2018-10-10] MEDS: BACLOFEN 10 MG TAB PO SCH (21:50)
[2018-10-11] MEDS: traMADol 50 MG TAB PO SCH ×6 (02:35→23:25)
[2018-10-11] MEDS: DILTIAZEM 30 MG TAB PO SCH ×4 (05:34→21:08)
[2018-10-11] MEDS ORDERED: EPINEPHrine 1 MG/ML INJ ONE (07:33)
[2018-10-11] MEDS ORDERED: BUPIVACAINE 0.5% 30 ML SDV ONE (07:33)
[2018-10-11] MEDS ORDERED: ceFAZolin 2 GM/DEXTROSE 100 ML IV ONE (07:55)
--- NOTE | 2018-10-11 08:11 | PDANEPAE ---
ANE History of Present Illness Right LE I and D ANE Past Medical History - Cardiovascular History Hx Hypertension: Yes Hx Arrhythmias: Yes Hx Chest Pain: No Hx Coronary Artery / Peripheral Vascular Disease: Yes Hx CHF / Valvular Disease: No Cardiovascular History Comment: AAA 5.2 cm in 2016 - Pulmonary History Hx COPD: No Hx Asthma/Reactive Airway Disease: No Hx Recent Upper Respiratory Infection: No Hx Oxygen in Use at Home: No Hx Sleep Apnea: No Sleep Apnea Screening Result - Last Documented: Positive Pulmonary History Comment: hypoxia in hospital on 4 LPM with SpO2 94% - Endocrine History Hx Diabetes: Yes Hypothyroid: No Hyperthyroid: No Obesity: mild - Renal History Hx Renal Disorders: Yes - Liver History Hx Hepatic Disorders: No - Neurological & Psychiatric Hx Hx Neurological and Psychiatric Disorders: No - Cancer History Hx Cancer: No - Congenital Disorder History Hx Congenital Disorders: No - Other Health History Other Health History: Poor vision. idiopathic thrombocytopenia - Chronic Pain History Chronic Pain: No ANE Review of Systems Review of Systems: - Exercise capacity METS (RN): 2 METS - Systems Constitutional: Reports: other (De) ANE Patient History - Allergies Allergies/Adverse Reactions: Tetracyclines Allergy (Intermediate, Verified 10/07/18 16:21) Vomiting azithromycin Allergy (Unknown, Verified 10/07/18 16:21) Itching nitrofurantoin [From Macrobid] Allergy (Unknown, Verified 10/07/18 16:21) nitrofurantoin macrocrystalline [From Macrobid] Allergy (Unknown, Verified 10/07 16:21) Sulfa (Sulfonamide Antibiotics) Allergy (Unknown, Verified 10/07/18 16:21) - Home Medications Home medications: home medication list seen and reviewed Home Medications: Polyethylene Glycol 3350 [Miralax 17 gm (*)] 17 gm PO DAILY PRN 07/15/18 [Last Taken Unknown] Sennosides/Docusate Sodium [Senna-S Tablet] 1 each PO BID 07/15/18 [Last Taken 10/07/18 am dose only] Tamsulosin HCl [Flomax 0.4 MG (*)] 0.4 mg PO DAILY 07/15/18 [Last Taken 10/06/18 ] Ferrous Sulfate [Ferrous Sulf 325 MG (*)] 325 mg PO BID 09/06/18 [Last Taken am dose only] Magnesium Hydroxide [Milk of Magnesia] 30 ml PO DAILY PRN 09/06/18 [Last Taken Unknown] guaiFENesin [Mucinex 600 MG (*)] 600 mg PO BID 09/06/18 [Last Taken 10/07/18 am dose only] Acetaminophen [Tylenol ES 500 mg (*)] 1,000 mg PO Q8 PRN 10/07/18 [Last Taken ] Apixaban [Eliquis] 5 mg PO BID 10/07/18 [Last Taken 10/07/18 am dose only] Baclofen 5 mg PO HS 10/07/18 [Last Taken 10/06/18] Bisacodyl [Dulcolax] 10 mg NM DAILY PRN 10/07/18 [Last Taken Unknown] Cholecalciferol Vit D3 [Vitamin D3 (*)] 50,000 unit PO TH 10/07/18 [Last Taken 10/01/18] Collagenase [Santyl (*)] 30 alice TP DAILY 10/07/18 [Last Taken 10/07/18] Diltiazem HCl 30 mg PO QID 10/07/18 [Last Taken 10/07/18 two doses] Mupirocin 2% [Bactroban 2% Oint (RX)] 1 alice TP DAILY 10/07/18 [Last Taken ] amLODIPine BESYLATE [Norvasc 5 mg (*)] 5 mg PO DAILY 10/07/18 [Last Taken ] fentaNYL [Duragesic 12 MCG Patch (*)] 12 mcg TD Q72H 10/07/18 [Last Taken ] traMADol [Ultram 50 mg (*)] 50 mg PO Q4 10/07/18 [Last Taken 10/07/18 two doses] - NPO status NPO Status: no food or drink >8 hours NPO Since - Liquids (Date): 10/11/18 NPO Since - Liquids (Time): 00:01 NPO Since - Solids (Date): 10/11/18 NPO Since - Solids (Time): 00:01 - Anes Hx Anes Hx: post operative cognitive dysfunction - Smoking Hx Smoking Status: Former smoker - Alcohol Use Alcohol Use: Sober - Family Anes Hx Family Anes Hx: none ANE Labs/Vital Signs - Labs Result Diagrams: 10/08/18 19:47 10/08/18 19:47 - Vital Signs Blood Pressure: 121/62 Heart Rate: 69 Respiratory Rate: 18 O2 Sat (%): 95 Height: 180.34 cm Weight: 85.3 kg ANE Physical Exam - Airway Neck exam: decreased ROM - Pulmonary Pulmonary: no respiratory distress - Cardiovascular Cardiovascular: irregularly irregular - ASA Status ASA Status: IV ANE Anesthesia Plan Anesthesia Plan: general endotracheal anesthesia
[2018-10-11] MEDS ORDERED: fentaNYL 100 MCG/2 ML INJ ONE ×2 (08:25→09:43)
[2018-10-11] MEDS ORDERED: PROPOFOL 200 MG/20 ML VIAL ONE (08:25)
[2018-10-11] MEDS ORDERED: ROCURONIUM 50 MG/5 ML VIAL ONE (08:37)
[2018-10-11] MEDS ORDERED: SUCCINYLCHOLINE CHLORIDE 200 MG/10 ML SYR IVP ONE (08:37)
[2018-10-11] MEDS ORDERED: ONDANSETRON 4 MG/2 ML VIAL IVP PRN (08:50)
[2018-10-11] MEDS ORDERED: NALOXONE HCL 0.4 MG/ML INJ IVP PRN (08:50)
[2018-10-11] MEDS ORDERED: fentaNYL 100 MCG/2 ML INJ IVP PRN (08:50)
[2018-10-11] MEDS ORDERED: MEPERIDINE 25 MG/0.5 ML AMP IVP PRN (08:50)
[2018-10-11] MEDS ORDERED: LABETALOL HCL 5 MG/ML 20 ML MDV IVP PRN (08:50)
--- NOTE | 2018-10-11 09:23 | POSTOPPROG ---
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 Small amount calcaneous palpated Inf/Abcess present in the surg proc area at time of surgery?: Yes Depth: Deep Incisional (Fascial) EBL: Minimal Drains: Wound Vac Specimen(s): none
[2018-10-11] MEDS: amLODIPine BESYLATE 5 MG TAB PO SCH (14:29)
[2018-10-11] MEDS: MUPIROCIN 2% 22 GM OINT TP SCH (14:30)
[2018-10-11] MEDS: COLLAGENASE 30 GM OINTMENT TP SCH (14:30)
[2018-10-11] MEDS: FERROUS SULFATE 325 MG TAB PO SCH ×2 (14:30→21:09)
[2018-10-11] MEDS: SENNOSIDES/DOCUSATE SODIUM TAB PO SCH ×2 (14:31→21:09)
[2018-10-11] MEDS: TAMSULOSIN HCL 0.4 MG CAP PO SCH (14:31)
--- NOTE | 2018-10-11 16:14 | HOSPPROG ---
Hospitalist Progress Note Assessment/Plan: 83 yo M with hx of advanced dementia presenting with necrotic right heel #Necrotic right LE and Heel ulcer concerning for osteomyelitis: MRI c/w possible posterior lateral calcaneal osteo, s/p surgical debridement today with placement of wound vac #Hx of A Fib - Continue home Diltiazem - eliquis on hold for surgery this am, will resume when cleared by surgery #BPH - Continue home Flomax #HARSHIL - Hemoglobin around baseline - Continue home Fe Sulfate #Advance Dementia -minimally verbal, resides at [place] # Dispo: IP status DNR Dispo: TBD Subjective: no significant overnight events, patient remains minimally verbally Objective: Vital Signs Temp Pulse Resp BP Pulse Ox 36.7 C 69 18 121/61 H 99 10/11/18 15:46 10/11/18 15:46 10/11/18 15:46 10/11/18 15:46 10/11/18 15:46 Laboratory Results 10/08/18 19:47 10/08/18 19:47 10/10/18 10/11/18 10/12/18 05:59 05:59 05:59 Intake Total 1755 2431 450 Output Total 900 200 Balance 1755 1531 250 awake minimally responsive anicteric op clear poor dentition rrr no mrg cta b soft nt nd no cce, foul smelling calcaneal wound moves spontaneously, not verbally interactive ICD10 Worksheet Patient Problems: Problems Problem Status Onset Peripheral vascular disease Acute Ulcer of right lower leg Acute Acute kidney injury Acute Atrial flutter Acute Cervical strain Acute DVT (deep venous thrombosis) Acute Dehydration Acute Displaced fracture of right femoral neck Acute Elevated troponin Acute Fever Acute Head injury Acute Hypoxemia Acute Hypoxia Acute Nausea, vomiting, and diarrhea Acute Palliative care encounter Acute Pancreatitis Acute Pneumonia Acute Pulmonary embolus Acute Severe sepsis Acute Toe infection Acute Vomiting Acute chronic disease mgmt/transitional care Acute
[2018-10-11] MEDS: BACLOFEN 10 MG TAB PO SCH (21:08)
[2018-10-11] MEDS: HYDROmorphONE/DILAUDID 1 MG/ML INJ IVP PRN (23:30)
--- NOTE | 2018-10-12 02:00 | GOP ---
[f rep st] OPERATIVE REPORT DATE OF OPERATION: 10/11/2018 SURGEON: Emerita Doty MD ANESTHESIA: General. ANESTHESIOLOGIST: Jeanne Sparks MD. PREOPERATIVE DIAGNOSIS: Chronic pressure ulcer, stage IV, right lower extremity and arterial ulcer. POSTOPERATIVE DIAGNOSIS: Chronic pressure ulcer, stage IV, right lower extremity and arterial ulcer. PROCEDURE PERFORMED: Debridement of skin, soft tissue, and bone, 6.4 x 8 x 1 cm calcaneal wound. The more proximal wound measures approximately 3 x 3 x 0.5 cm and a distal wound measures 2.5 x 1 x 0.2 cm. FINDINGS: Small amount of tibia (less than 1 cm) exposed and a small amount a calcaneus palpated. SPECIMENS: None. ESTIMATED BLOOD LOSS: Minimal. INDICATIONS: The patient is an 83-year-old man who has a medical power of managing attorney. He presented to the hospital and has foul smelling unstageable pressure ulcers on his lower extremity and also has arterial insufficiency. DESCRIPTION OF PROCEDURE: Patient was brought into the operating room and anesthesia was administered. His foot and leg were prepped and draped in the usual sterile fashion. I used the Misonix to debride the wounds above the malleolus distal as well as the calcaneal wound. I was able to debride each wound clear of the necrotic and foul smelling material. There was a small amount a tibia exposed just above the malleolus, and calcaneus could be palpated. Hemostasis achieved in each wound. Collette Hydrofera blue was placed on the medial wounds and VeraFlo wound VAC placed on the calcaneus. He was awakened in the operating room, extubated, and transferred to PACU in stable condition. /[id number]/MODL MTDD
[2018-10-12] MEDS: NS W/ 20 KCl/L 1,000 ML IV SCH ×2 (02:35→15:52)
[2018-10-12] MEDS: traMADol 50 MG TAB PO SCH ×7 (02:43→23:21)
[2018-10-12] MEDS: DILTIAZEM 30 MG TAB PO SCH ×4 (05:16→20:23)
[2018-10-12] MEDS: TAMSULOSIN HCL 0.4 MG CAP PO SCH (09:15)
[2018-10-12] MEDS: APIXABAN 5 MG TAB PO SCH ×2 (09:15→20:22)
[2018-10-12] MEDS: amLODIPine BESYLATE 5 MG TAB PO SCH (09:15)
[2018-10-12] MEDS: FERROUS SULFATE 325 MG TAB PO SCH ×2 (09:15→20:22)
[2018-10-12] MEDS: SENNOSIDES/DOCUSATE SODIUM TAB PO SCH ×2 (09:15→20:24)
[2018-10-12] MEDS: fentaNYL 12 MCG PATCH TD SCH (09:16)
[2018-10-12] MEDS: MAGNESIUM HYDROXIDE 30 ML UDCUP PO PRN (09:16)
[2018-10-12] MEDS: COLLAGENASE 30 GM OINTMENT TP SCH (09:40)
[2018-10-12] MEDS: MUPIROCIN 2% 22 GM OINT TP SCH (09:40)
--- NOTE | 2018-10-12 10:38 | SOAPPROG ---
JALIL Progress Note Assessment/Plan: Assessment: 83 male with severe posterior calcaneal full thickness pressure sore rt foot difficult to find pedal pulses with poorly cooperative pt requiring sedation for mri exam present situation will be impossible to heal unless he is very compliant with offloading any pressure on rt heel mri pending Plan:heel suspension boot/ art studies 10/08/18 23:37 10/12/18 10:35 Patient is more alert today/afebrile/vital signs stable status post foot debridement CTA again shows significant iliac stenosis as well as more distal stenoses He would benefit from angioplasty and/or iliac stents for which she is refused in the past on several occasions He also has a smallish abdominal aneurysm at 5.6 that is less concerning We have discussed risks and options and that he could lose his leg without improved vascular inflow and he is considering cooperating with angioplasty and stenting Objective: Vital Signs Temp Pulse Resp BP Pulse Ox 36.5 C 65 16 119/67 100 10/12/18 08:01 10/12/18 08:01 10/12/18 08:01 10/12/18 09:15 10/12/18 08:01 Laboratory Results 10/08/18 19:47 10/08/18 19:47 10/11/18 10/12/18 10/13/18 05:59 05:59 05:59 Intake Total 2431 550 Output Total 900 200 Balance 1531 350 ICD10 Worksheet Patient Problems: Problems Problem Status Onset Peripheral vascular disease Acute Ulcer of right lower leg Acute Acute kidney injury Acute Atrial flutter Acute Cervical strain Acute DVT (deep venous thrombosis) Acute Dehydration Acute Displaced fracture of right femoral neck Acute Elevated troponin Acute Fever Acute Head injury Acute Hypoxemia Acute Hypoxia Acute Nausea, vomiting, and diarrhea Acute Palliative care encounter Acute Pancreatitis Acute Pneumonia Acute Pulmonary embolus Acute Severe sepsis Acute Toe infection Acute Vomiting Acute chronic disease mgmt/transitional care Acute
--- NOTE | 2018-10-12 13:38 | HOSPPROG ---
Hospitalist Progress Note Assessment/Plan: 83 yo M with hx of advanced dementia presenting with necrotic right heel Necrotic right LE and Heel ulcer concerning for osteomyelitis: MRI c/w possible posterior lateral calcaneal osteo, s/p surgical debridement today with placement of wound vac 1. would likely benefit from angioplasty/stent- this is limb salvaging 2. he has limited capacity to make medical decisions but voices desire to keep his leg Hx of A Fib Continue home Diltiazem eliquis on hold for surgery this am, will resume when cleared by surgery BPH Continue home Flomax HARSHIL Hemoglobin around baseline Continue home Fe Sulfate Advance Dementia minimally verbal, resides at [place] he is not decisional has MDPOA whos is neighbor, sounds like mostly says "yes" to requests for consent he is dnr I believe it is within the standard of care, and also the realm of compassion , to perform catheter based revascularization in this patient given limb threatening nature of this wound Dispo: IP status DNR Dispo: TBD Subjective: case d.w dr jorgensen. patient eating when i enter room. alert. not able to articulate why he is here. denies pain at this moment Objective: Vital Signs Temp Pulse Resp BP Pulse Ox 36.5 C 66 16 122/62 H 100 10/12/18 08:01 10/12/18 12:23 10/12/18 08:01 10/12/18 12:23 10/12/18 08:01 Laboratory Results 10/08/18 19:47 10/08/18 19:47 10/11/18 10/12/18 10/13/18 05:59 05:59 05:59 Intake Total 2431 550 Output Total 900 200 Balance 1531 350 - Physical Exam Constitutional: no apparent distress, appears nourished Eyes: PERRL, anicteric sclera Ears, Nose, Mouth, Throat: moist mucous membranes, hearing normal Cardiovascular: regular rate and rhythym, no murmur, rub, or gallop Respiratory: no respiratory distress, no rales or rhonchi Gastrointestinal: normoactive bowel sounds, soft, non-tender abdomen Genitourinary: no bladder fullness, No melissa in urethra Skin: warm, normal color Musculoskeletal: other (feet in padded boots. wound vac RLE) Neurologic: No AAOx3 Psychiatric: No interacting appropriately ICD10 Worksheet Patient Problems: Problems Problem Status Onset Peripheral vascular disease Acute Ulcer of right lower leg Acute Acute kidney injury Acute Atrial flutter Acute Cervical strain Acute DVT (deep venous thrombosis) Acute Dehydration Acute Displaced fracture of right femoral neck Acute Elevated troponin Acute Fever Acute Head injury Acute Hypoxemia Acute Hypoxia Acute Nausea, vomiting, and diarrhea Acute Palliative care encounter Acute Pancreatitis Acute Pneumonia Acute Pulmonary embolus Acute Severe sepsis Acute Toe infection Acute Vomiting Acute chronic disease mgmt/transitional care Acute
--- NOTE | 2018-10-12 14:20 | ASMTCMCOM ---
CM Note CM Note Notes: Patient plan of care reviewed in am rounds. 83 year old male who resides at [facility] is undergoing treatment for necrotic foot wounds, per imaging studies patient lower extremity thought to be salvageable if adequate jainism of perfusion can be achieved via stenting of occluded arteries. Plan: Likely return to [facility] when medically cleared for discharge home. Date Signed: 10/12/2018 02:19 PM Electronically Signed By:Paty Dunlap RN
[2018-10-12] MEDS: BACLOFEN 10 MG TAB PO SCH (20:23)
[2018-10-12] MEDS: HYDROmorphONE/DILAUDID 1 MG/ML INJ IVP PRN ×2 (20:34→23:34)
[2018-10-13] MEDS: traMADol 50 MG TAB PO SCH ×6 (03:08→21:08)
[2018-10-13] MEDS: NS W/ 20 KCl/L 1,000 ML IV SCH ×2 (05:29→19:15)
[2018-10-13] MEDS: DILTIAZEM 30 MG TAB PO SCH ×4 (06:15→21:06)
--- NOTE | 2018-10-13 08:28 | HOSPPROG ---
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 * Atrial fibrillation chronic paroxysmal on Eliquis at home, resumed at this time after surgery * Abdominal aortic aneurysm, appears asymptomatic, 5.6 cm * BPH chronic on Flomax * Dementia: Patient not currently decisional * Iron deficiency anemia, on home iron sulfate therapy * DNR poor his previous requests, however patient has previously had requests to have essentially no other limitations in acute care and POA currently requesting ongoing acute care; patient has stated here that he does have desire to keep his leg if possible PLANS: * Continue wound care * Pain management, ongoing careful titration for relief without side effects * No plans for treatment of aneurysm * Ongoing discussions about possible angioplasty stent to right iliac artery * Continue anticoagulation at this time until decisions and plans made regarding vascular procedure * Continue iron replacement * Will recheck metabolic panel and CBC * Ongoing discussion with POA, palliative team to further assess care goals Seen by me today on hospitalist rounds as well as multidisciplinary rounds Will review with surgery team SUBJECTIVE: Patient this morning is having a difficult time describing how much discomfort he has in his foot and heel and ankle if any No other complaints Has been eating OBJECTIVE Vitals reviewed: Stable without fever Social Media Editor, my review: Sinus Exam: alert disoriented, poor memory, reasonably relaxed skin warm dry color ok resps not labored lungs clear BSs heart regular abd soft nondistended nontender, bowel sounds present limbs warm, no edema; foot with dressing clean and dry iv site ok Objective: Vital Signs Temp Pulse Resp BP Pulse Ox 36.6 C 65 16 120/58 L 99 10/13/18 07:47 10/13/18 07:47 10/13/18 07:47 10/13/18 07:47 10/13/18 07:47 Microbiology 10/07/18 18:49 Blood Culture - Final Blood 10/07/18 19:15 Blood Culture - Final Blood Laboratory Results 10/08/18 19:47 10/08/18 19:47 10/12/18 10/13/18 10/14/18 06:59 06:59 06:59 Intake Total 550 640 Output Total 1470 Balance 550 -830 - Time Spent With Patient Time Spent with Patient: greater than 35 minutes Time Spent with Patient: Greater than 35 minutes spent on this patients care, greater than 50% of time spent counseling, educating, and coordinating care regarding the above mentioned plan. ICD10 Worksheet Patient Problems: Problems Problem Status Onset Peripheral vascular disease Acute Ulcer of right lower leg Acute Acute kidney injury Acute Atrial flutter Acute Cervical strain Acute DVT (deep venous thrombosis) Acute Dehydration Acute Displaced fracture of right femoral neck Acute Elevated troponin Acute Fever Acute Head injury Acute Hypoxemia Acute Hypoxia Acute Nausea, vomiting, and diarrhea Acute Palliative care encounter Acute Pancreatitis Acute Pneumonia Acute Pulmonary embolus Acute Severe sepsis Acute Toe infection Acute Vomiting Acute chronic disease mgmt/transitional care Acute
[2018-10-13] MEDS: APIXABAN 5 MG TAB PO SCH ×2 (09:03→21:07)
[2018-10-13] MEDS: amLODIPine BESYLATE 5 MG TAB PO SCH (09:03)
[2018-10-13] MEDS: TAMSULOSIN HCL 0.4 MG CAP PO SCH (09:03)
[2018-10-13] MEDS: SENNOSIDES/DOCUSATE SODIUM TAB PO SCH ×2 (09:03→21:07)
[2018-10-13] MEDS: FERROUS SULFATE 325 MG TAB PO SCH ×2 (09:03→21:08)
[2018-10-13] MEDS: MUPIROCIN 2% 22 GM OINT TP SCH (10:12)
[2018-10-13] MEDS: COLLAGENASE 30 GM OINTMENT TP SCH (10:12)
[2018-10-13] MEDS: BACLOFEN 10 MG TAB PO SCH (21:07)
[2018-10-14] MEDS: traMADol 50 MG TAB PO SCH ×6 (02:24→21:49)
[2018-10-14] MEDS: DILTIAZEM 30 MG TAB PO SCH ×4 (05:18→21:48)
[2018-10-14] MEDS: NS W/ 20 KCl/L 1,000 ML IV SCH ×2 (09:53→23:50)
--- NOTE | 2018-10-14 10:23 | SOAPPROG ---
SOAP Progress Note Assessment/Plan: Assessment/Plan: 83 Y M c dementia, afib, AAA 5.6 cm, PAD c significant iliac stenosis, here with ischemic calcaneal ulcer s/p operative debridement. Alert and afebrile. Attempted wound vac removal but patient became very agitated and requested to be left alone. Discussed with wound care. Patient says he is agreeable to vac change later today, but with his underlying dementia , not sure how cooperative he will be. Will try to view wounds later today. Patient will likely need premedication. He has expressed to other providers his wish to keep his leg, but again, CTA again shows significant iliac stenosis as well as more distal stenoses but he has refused Dr. Dietrich' recommendation for angioplasty and/or iliac stents on several occasions.We have discussed risks and options and that he could lose his leg without improved vascular inflow. S: c/o pain when moving his legs. O: alert, agitated, uncooperative vac to suction. allevyn protective dressings over shins and underlying skin intact. 10/14/18 10:17 Objective: Vital Signs Temp Pulse Resp BP Pulse Ox 36.3 C 64 12 126/54 H 92 10/14/18 08:40 10/14/18 08:40 10/14/18 08:40 10/14/18 08:40 10/14/18 08:40 Laboratory Results 10/08/18 19:47 10/08/18 19:47 10/13/18 10/14/18 10/15/18 05:59 05:59 05:59 Intake Total 390 2362 Output Total 820 1600 Balance -430 762 ICD10 Worksheet Patient Problems: Problems Problem Status Onset Peripheral vascular disease Acute Ulcer of right lower leg Acute Acute kidney injury Acute Atrial flutter Acute Cervical strain Acute DVT (deep venous thrombosis) Acute Dehydration Acute Displaced fracture of right femoral neck Acute Elevated troponin Acute Fever Acute Head injury Acute Hypoxemia Acute Hypoxia Acute Nausea, vomiting, and diarrhea Acute Palliative care encounter Acute Pancreatitis Acute Pneumonia Acute Pulmonary embolus Acute Severe sepsis Acute Toe infection Acute Vomiting Acute chronic disease mgmt/transitional care Acute
[2018-10-14] MEDS: HYDROmorphONE/DILAUDID 1 MG/ML INJ IVP PRN (10:31)
[2018-10-14] MEDS: FERROUS SULFATE 325 MG TAB PO SCH ×2 (11:50→21:48)
[2018-10-14] MEDS: TAMSULOSIN HCL 0.4 MG CAP PO SCH (11:50)
[2018-10-14] MEDS: SENNOSIDES/DOCUSATE SODIUM TAB PO SCH ×2 (11:51→21:49)
[2018-10-14] MEDS: APIXABAN 5 MG TAB PO SCH (11:51)
[2018-10-14] MEDS: amLODIPine BESYLATE 5 MG TAB PO SCH (11:51)
[2018-10-14] MEDS: COLLAGENASE 30 GM OINTMENT TP SCH (11:51)
[2018-10-14] MEDS: MUPIROCIN 2% 22 GM OINT TP SCH (11:52)
--- NOTE | 2018-10-14 12:15 | WOCRNPDOC ---
WOELE Advanced Assessment Note - Skin Integrity Problem, Advanced Assess Right Heel Pressure Injury Dressing Type: Wound Vac Dressing Description: Clean/Dry, Intact Exudate Amount: Minimal Exudate Characteristic(s): Serosanguinous Integumentary Issue Intervention: Dressing Changed, Dressing Initialed & Dated Cassi Wound Tissue: Erythema (proximal 50%), Macerated, Non-blanching, Painful/ Tender Cassi Wound Swelling: Mild Wound Bed Color: Red, Yellow Wound Bed Constitution: Granulation Tissue (20%), Mixed Loose & Adhered Slough/ Eschar (80%) Wound Edges: Attached, Irregular Site Measurement - Head-to-Toe Length X Width X Depth (cm): 6.9x9x1 Pressure Injury Stage: Stage 4 Pressure Injury Present on Admit: Yes Skin Integrity Problem Comment: Wound vac dressing removed with patient leg in sling and 7 staff holding/calming pt. IV Dilaudid given prior to procedure. Wound cleaned with gauze and normal saline. Mastisol applied to wound edges, skin prep spray and drape applied to peridwound skin. Small white foam piece to cover bone, black foam to covere wound entirety. Bridge dressing used. Suction restarted at 125 mm Hg, no leaks. Pt tolerated vac dressing change better than expected, painful and not aggressive. Next vac dressing change due friday. Chayito Arndt notified of findings. RNs Maurilio, Emely, 3 students, and Connie. WOCN present. Right Lateral Proximal Ankle Dressing Type: Allevyn Life, Hydrofera Blue Ready Dressing Description: Clean/Dry, Intact Exudate Color: Yellow, Red Exudate Characteristic(s): Serosanguinous Integumentary Issue Intervention: Dressing Applied Cassi Wound Tissue: Macerated, Painful/Tender Cassi Wound Swelling: Mild Wound Bed Color: Red, Yellow Wound Bed Constitution: Granulation Tissue (20%), Undermining (0.3 distal edge 20%), Tendon (30%) Wound Edges: Attached (80%) Site Odor: None Site Measurement - Head-to-Toe Length X Width X Depth (cm): 2.6x1x0.4 Pressure Injury Stage: Stage 4 Pressure Injury Present on Admit: Yes Skin Integrity Problem Comment: Wound a mixture of arterial insufficiency and pressure. Cleaned with gauze and normal saline. Hydrofera Blue Ready cut to fit wound bed. Allevyn life to cover Hydrofera Blue. Right Lateral Distal Ankle Dressing Type: Allevyn Life, Hydrofera Blue Ready Dressing Description: Clean/Dry, Intact Exudate Amount: Scant Exudate Characteristic(s): Serosanguinous Integumentary Issue Intervention: Dressing Changed Cassi Wound Tissue: Macerated (20%), Painful/Tender Cassi Wound Swelling: Mild Wound Bed Constitution: Granulation Tissue (20%), Smooth Tissue (20%), Tendon, Mixed Loose & Adhered Slough/Eschar (60%) Wound Edges: Not Attached Pressure Injury Stage: Stage 4 Pressure Injury Present on Admit: Yes Skin Integrity Problem Comment: Wound a mixture of arterial insufficiency and pressure. Cleaned with gauze and normal saline. Hydrofera Blue Ready cut to fit wound bed. Allevyn life to cover Hydrofera Blue.
--- NOTE | 2018-10-14 15:00 | HOSPPROG ---
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 Dietrich today. Dr. Dietrich still strongly recommending trying to angioplasty his leg to get better flow into his wounds. As so far all of the treatment plans discussed with POA and the patient include trying to save his leg, and is I think he would get better wound healing and better pain relief with better blood flow, is very reasonable to proceed with angioplasty. At this time I will hold his Eliquis to start preparing for that and will review again with POA. PLANS: * Continue wound care * Pain management, ongoing careful titration for relief without side effects * No plans for treatment of aneurysm * Will talk to his POA about angioplasty again, but will stop his Eliquis now presuming that we will proceed with that, I will review with interventional radiology * Continue iron replacement * Will recheck metabolic panel and CBC * Ongoing discussion with POA, palliative team to further assess care goals Seen by me today on hospitalist rounds as well as multidisciplinary rounds SUBJECTIVE: I saw the patient twice today once during his dressing changes and once after this. He had been given pain medicine for the dressing changes and so was fairly groggy during both my visits and not really able to discuss symptoms. He did have some pain but reasonable pain control for his dressing change Per nurses he has had no new complaints. His nurse today does mention that the patient vocalized to her that he would like us to continue treating his leg ulcer and trying help him keep his leg. OBJECTIVE Vitals reviewed: Stable without fever Record Clerk, my review: Sinus Exam: alert disoriented, poor memory, reasonably relaxed skin warm dry color ok resps not labored lungs clear BSs heart regular abd soft nondistended nontender, bowel sounds present limbs warm, no edema; I did review the patient's wounds during his dressing changed today. He has very deep wounds with exposed bone in deep soft tissue particularly at the heel. There is no current tissue that appears to need significant debridement and there is no significant purulent drainage but these wounds are not showing any signs of rapid healing. iv site ok Objective: Vital Signs Temp Pulse Resp BP Pulse Ox 37.0 C 66 14 123/59 H 98 10/14/18 11:33 10/14/18 11:50 10/14/18 11:33 10/14/18 11:51 10/14/18 11:33 Laboratory Results 10/08/18 19:47 10/08/18 19:47 10/13/18 10/14/18 10/15/18 06:59 06:59 06:59 Intake Total 640 2112 Output Total 1470 950 Balance -830 1162 - Time Spent With Patient Time Spent with Patient: greater than 35 minutes Time Spent with Patient: Greater than 35 minutes spent on this patients care, greater than 50% of time spent counseling, educating, and coordinating care regarding the above mentioned plan. ICD10 Worksheet Patient Problems: Problems Problem Status Onset Peripheral vascular disease Acute Ulcer of right lower leg Acute Acute kidney injury Acute Atrial flutter Acute Cervical strain Acute DVT (deep venous thrombosis) Acute Dehydration Acute Displaced fracture of right femoral neck Acute Elevated troponin Acute Fever Acute Head injury Acute Hypoxemia Acute Hypoxia Acute Nausea, vomiting, and diarrhea Acute Palliative care encounter Acute Pancreatitis Acute Pneumonia Acute Pulmonary embolus Acute Severe sepsis Acute Toe infection Acute Vomiting Acute chronic disease mgmt/transitional care Acute
--- NOTE | 2018-10-14 19:28 | GCON ---
[f rep st] CONSULTATION DATE OF CONSULTATION: 10/08/2018 HISTORY OF PRESENT ILLNESS: The patient is an 83-year-old male, well-known to me, who presents with a severe heel full-thickness pressure sore. He is fairly confused and "out to lunch" and somewhat un cooperative. I was consulted for treatment of this wound. He has longstanding peripheral vascular d isease, as well as a AAA, which he has refused to have repaired in the past. He has had some toe amp utations which managed to heal, but he is known to have a critical iliac stenosis, as well as SFA dis ease. ALLERGIES: Tetracycline, Zithromax, Macrobid, and sulfa. PRESENT MEDICATIONS: Laxatives, Flomax, iron, Mucinex, Eliquis, baclofen, vitamin B, , dil tiazem, amlodipine, Duragesic patch, and tramadol. PAST MEDICAL HISTORY: Includes hypertension. Has a nearly 6 cm abdominal aortic aneurysm. He has k nown iliac stenosis and peripheral vascular disease. He also has type 2 diabetes, spinal stenosis, h istory of vertigo, osteomyelitis, and psoriasis. Has BPH with urinary retention. He also has a hist ory of PE and DVT. Has severe cataracts. He also has paroxysmal atrial fib/flutter. SURGICAL HISTORY: Includes an appendectomy, a left total hip arthroplasty after fracture, and right hip ORIF, as well, and he has had toe amputations. FAMILY HISTORY: Noncontributory. SOCIAL HISTORY: Reveals that he lives in [place], and is an ex-smoker. REVIEW OF SYSTEMS: Reveals no new findings on a 10-point review, although he is quite delirious at t imes and unable to answer questions correctly. PHYSICAL EXAM: GENERAL: Reveals an agitated, 83-year-old male in no acute distress. He is afebrile . HEAD and NECK: Reveals no icterus. PERRLA. There are no oral lesions except for poor dentition. NECK: Supple, without bruits. CHEST: Clear. CARDIAC: Reveals a regular rhythm. ABDOMEN: Soft and nontender. He does have abdominal bruits. There are no obvious hernias. GENITALIA: Normal. EXTREMITIES: Reveal some knee contractures. He has absent pedal pulses. He had markedly full-thick ness black eschar in the back of his heel with some other pressure lesions seen on the inside of his foot. IMPRESSION: Severe peripheral vascular disease with limb-threatening infection and full-thickness he el decubitus. This will be almost impossible to heal without improving his blood flow. His ABIs balwinder w actually 75%, but a CTA reveals a significant iliac stenosis, as well as femoral artery stenosis. RECOMMENDATIONS: 1. Would be total offloading with a heel suspension boot. 2. Consideration for angioplasty of his iliac arteries when and if he becomes amenable to that. He has refused that in the past. /[id number]/MODL
[2018-10-14] MEDS: BACLOFEN 10 MG TAB PO SCH (21:47)
[2018-10-15] MEDS: traMADol 50 MG TAB PO SCH ×6 (02:53→22:26)
[2018-10-15] MEDS: DILTIAZEM 30 MG TAB PO SCH ×4 (05:38→20:33)
[2018-10-15] MEDS: HYDROmorphONE/DILAUDID 1 MG/ML INJ IVP PRN ×4 (06:22→19:32)
--- NOTE | 2018-10-15 08:48 | SOAPPROG ---
SOAP Progress Note Assessment/Plan: Assessment/Plan: 83 Y M c dementia, afib, AAA 5.6 cm, PAD c significant iliac stenosis, here with ischemic calcaneal ulcer s/p operative debridement. Wound vac was pulled off last night and wet to dry dressing was placed. Will plan for wound vac application tomorrow. He has expressed to other providers his wish to keep his leg, but again, CTA again shows significant iliac stenosis as well as more distal stenoses but he has refused Dr. Dietrich' recommendation for angioplasty and/or iliac stents on several occasions.We have discussed risks and options and that he could lose his leg without improved vascular inflow. S: c/o pain when moving his legs. O: alert, agitated, uncooperative Wet to dry dressing over R calcaneal ulcer allevyn protective dressings over shins and underlying skin intact. 10/15/18 08:46 Objective: Vital Signs Temp Pulse Resp BP Pulse Ox 36.6 C 65 14 141/64 H 100 10/15/18 04:00 10/15/18 08:07 10/15/18 08:07 10/15/18 08:07 10/15/18 08:07 Laboratory Results 10/08/18 19:47 10/08/18 19:47 10/14/18 10/15/18 10/16/18 05:59 05:59 05:59 Intake Total 2362 2361 Output Total 1600 750 Balance 762 1611 ICD10 Worksheet Patient Problems: Problems Problem Status Onset Peripheral vascular disease Acute Ulcer of right lower leg Acute Acute kidney injury Acute Atrial flutter Acute Cervical strain Acute DVT (deep venous thrombosis) Acute Dehydration Acute Displaced fracture of right femoral neck Acute Elevated troponin Acute Fever Acute Head injury Acute Hypoxemia Acute Hypoxia Acute Nausea, vomiting, and diarrhea Acute Palliative care encounter Acute Pancreatitis Acute Pneumonia Acute Pulmonary embolus Acute Severe sepsis Acute Toe infection Acute Vomiting Acute chronic disease mgmt/transitional care Acute
[2018-10-15] MEDS: fentaNYL 12 MCG PATCH TD SCH (09:02)
[2018-10-15] MEDS: SENNOSIDES/DOCUSATE SODIUM TAB PO SCH ×2 (09:05→20:34)
[2018-10-15] MEDS: FERROUS SULFATE 325 MG TAB PO SCH ×2 (09:05→20:34)
[2018-10-15] MEDS: amLODIPine BESYLATE 5 MG TAB PO SCH (09:05)
[2018-10-15] MEDS: TAMSULOSIN HCL 0.4 MG CAP PO SCH (09:05)
[2018-10-15] MEDS: MUPIROCIN 2% 22 GM OINT TP SCH (09:06)
[2018-10-15] MEDS: COLLAGENASE 30 GM OINTMENT TP SCH ×2 (09:07→11:19)
[2018-10-15 10:41] LABS: PLATELET COUNT 169 10^3/uL (150-400)
[2018-10-15] MEDS: NS W/ 20 KCl/L 1,000 ML IV SCH (13:27)
--- NOTE | 2018-10-15 16:49 | ASMTCMCOM ---
CM Note CM Note Notes: Pt discussed in rounds. Pt Has been confused and requiring pain management. CM will continue to monitor needs for discharge. Plan: Yasmeen Navarro Date Signed: 10/15/2018 04:48 PM Electronically Signed By:Marcella North
[2018-10-15] MEDS: BACLOFEN 10 MG TAB PO SCH (20:33)
--- NOTE | 2018-10-15 21:37 | HOSPPROG ---
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; some pain related to this but difficult to assess due to patient's dementia * Iliac artery stenosis, severe, on right * Atrial fibrillation chronic paroxysmal on Eliquis at home, resumed at this time after surgery * Abdominal aortic aneurysm, appears asymptomatic, 5.6 cm * BPH chronic on Flomax * Dementia: Patient not currently decisional * Iron deficiency anemia, on home iron sulfate therapy * DNR poor his previous requests, however patient has previously had requests to have essentially no other limitations in acute care and POA currently requesting ongoing acute care; patient has stated here that he does have desire to keep his leg if possible Today the patient is quite alert and much better oriented. I had a very long discussion with him about the risk of him having severe ongoing pain, having worsening necrosis of his foot and leg with likely eventual amputation, and risk of further infectious problems which could get him into other trouble. We reviewed that he has severe arterial compromise and treatment of his arterial disease would likely lead to decreased pain, much better wound healing, and much lower risk of amputation. He is very strongly stating to me today that he does not want to lose his leg, does not want to , would like to have better pain control and not be in the hospital any more than necessary. He does express understanding that improving blood flow would help him achieve all those goals. Nonetheless he at this point is not willing to accept our recommendation that he have angioplasty of his iliac artery. He has talks a bit in circles around the topic of why he will not agree to have this procedure done and I am unable to come away with a clear picture of why he does not want it done. I have gone through very clearly the risk benefit analysis with him and I believe he understands what I am saying. I do think that at least today he has decisional capacity. Notably he did not have much pain medicine today as there was not a dressing change. He does state that he would like to talk to his POA about our recommendations for angioplasty and I have told him that I would be happy to talk to his POA if there are questions. Seen by me on hospitals rounds and multidisciplinary rounds today PLANS: * Continue wound care * Pain management, ongoing careful titration for relief without side effects * No plans for treatment of aneurysm * I will continue talks with the patient and his POA about our recommendations for angioplasty * Continue iron replacement * Will recheck metabolic panel and CBC * Ongoing discussion with POA, palliative team to further assess care goals Seen by me today on hospitalist rounds as well as multidisciplinary rounds SUBJECTIVE: Patient has ongoing pain at his leg wounds, has no other discomforts no dyspnea no fever symptoms Eating better today OBJECTIVE Vitals reviewed: Stable without fever Accounts Receivable Representative, my review: Sinus Exam: alert much more conversant, really quite oriented today, very close to his baseline as I know him from previous hospitalizations (did not get much pain medicine today as there is no dressing change today) skin warm dry color ok resps not labored lungs clear BSs heart regular abd soft nondistended nontender, bowel sounds present limbs warm, no edema; dressings clean and dry on his leg iv site ok Objective: Vital Signs Temp Pulse Resp BP Pulse Ox 37.2 C 67 16 131/63 H 91 L 10/15/18 20:00 10/15/18 20:33 10/15/18 20:00 10/15/18 20:33 10/15/18 20:00 Laboratory Results 10/15/18 09:50 10/15/18 09:50 10/14/18 10/15/18 10/16/18 06:59 06:59 06:59 Intake Total 2112 2361 250 Output Total 454 180 5003 Balance 1162 1611 -750 - Time Spent With Patient Time Spent with Patient: greater than 35 minutes Time Spent with Patient: Greater than 35 minutes spent on this patients care, greater than 50% of time spent counseling, educating, and coordinating care regarding the above mentioned plan. ICD10 Worksheet Patient Problems: Problems Problem Status Onset Peripheral vascular disease Acute Ulcer of right lower leg Acute Acute kidney injury Acute Atrial flutter Acute Cervical strain Acute DVT (deep venous thrombosis) Acute Dehydration Acute Displaced fracture of right femoral neck Acute Elevated troponin Acute Fever Acute Head injury Acute Hypoxemia Acute Hypoxia Acute Nausea, vomiting, and diarrhea Acute Palliative care encounter Acute Pancreatitis Acute Pneumonia Acute Pulmonary embolus Acute Severe sepsis Acute Toe infection Acute Vomiting Acute chronic disease mgmt/transitional care Acute
[2018-10-16] MEDS: NS W/ 20 KCl/L 1,000 ML IV SCH ×2 (00:45→15:18)
[2018-10-16] MEDS: traMADol 50 MG TAB PO SCH ×6 (02:08→20:24)
[2018-10-16] MEDS: DILTIAZEM 30 MG TAB PO SCH ×4 (06:45→20:24)
[2018-10-16] MEDS: TAMSULOSIN HCL 0.4 MG CAP PO SCH (08:18)
[2018-10-16] MEDS: amLODIPine BESYLATE 5 MG TAB PO SCH (08:18)
[2018-10-16] MEDS: SENNOSIDES/DOCUSATE SODIUM TAB PO SCH ×2 (08:22→20:31)
[2018-10-16] MEDS: FERROUS SULFATE 325 MG TAB PO SCH ×2 (08:22→20:31)
[2018-10-16] MEDS: HYDROmorphONE/DILAUDID 1 MG/ML INJ IVP PRN ×2 (08:24→10:15)
[2018-10-16] MEDS: MUPIROCIN 2% 22 GM OINT TP SCH (10:30)
[2018-10-16] MEDS: COLLAGENASE 30 GM OINTMENT TP SCH (10:30)
--- NOTE | 2018-10-16 11:03 | WOCRNPDOC ---
LIZ Advanced Assessment Note - Skin Integrity Problem, Advanced Assess Right Heel Pressure Injury Dressing Type: Gauze Dressing Description: Intact, Shadowed Exudate Amount: Minimal Exudate Characteristic(s): Serosanguinous Integumentary Issue Intervention: Dressing Changed Wound Bed Constitution: Granulation Tissue (10%), Mixed Loose & Adhered Slough/ Eschar (90%) Wound Edges: Attached Pressure Injury Stage: Stage 4 Pressure Injury Present on Admit: Yes Skin Integrity Problem Comment: x4 RN students assisted with dressing change. Patient recieved IV pain medication 0.8 dilaudid prior to dressing change. Limb was elevated with limb sling. Patient yelled quite a bit during the dressing change, including some obscenities. Non healing wound. Small area of granulation at 12 oclock along wound margin, however the remainder is necrotic. Flushed with ns. Skin prep and mastisol applied leonor wound then drape. Small area of calcaneous exposed in the middle of the wound and this was covered with Acticoat Ag+. x 2 pieces of black foam to wound bed. Bridge dressing used. Vac restarted at -125 mm Hg continuous suction with no leaks. Next dressing change Friday. As most of the wound is necrotic, unless wound changes over the weekend , a wet to dry dressing may be indicated instead of a wound vac. Chayito Arndt SALESPERSON [employer] aware of findings. Right Lateral Proximal Ankle Dressing Type: Allevyn Life, Hydrofera Blue Ready Dressing Description: Clean/Dry, Intact Exudate Amount: None Integumentary Issue Intervention: Dressing Changed, Dressing Initialed & Dated Wound Bed Constitution: Granulation Tissue (80%), Tendon (20%) Pressure Injury Stage: Stage 4 Pressure Injury Present on Admit: Yes Skin Integrity Problem Comment: Wound is healing well. HFB ready had changed color to white. Cleaned with ns and gazue. Hydrofera blue ready applied to wound bed and covered with Allevyn Life dressing. No bone palpable. Right Lateral Distal Ankle Dressing Type: Allevyn Life, Hydrofera Blue Ready Exudate Amount: None Integumentary Issue Intervention: Dressing Changed, Dressing Initialed & Dated Leonor Wound Swelling: Mild Wound Bed Constitution: Granulation Tissue (80%), Red/[place] - Non Granular Tissue (10%), Tendon (10%) Pressure Injury Stage: Stage 4 Pressure Injury Present on Admit: Yes Skin Integrity Problem Comment: HFB ready had changed color to white. Cleaned with ns and gazue. Hydrofera blue ready applied to wound bed and covered with Allevyn Life dressing.
--- NOTE | 2018-10-16 16:39 | ASMTCMCOM ---
CM Note CM Note Notes: Patient discussed during medical rounds. Dr. West shared he had extensive conversation with patient about worsening necrosis and options to lower risk of amputation. Patient had wound vac replaced yesterday and wound care visit today. Patient has YAMILETH Gunn, who Dr. West has agreed to speak to. The nursing team contacted Ethics to inquire about patient continuing to refuse recommendation for angioplasty. CM to follow. Discharge Plan: Likely Melissa Navarro. Date Signed: 10/16/2018 04:38 PM Electronically Signed By:Tere Clifton
--- NOTE | 2018-10-16 16:41 | SOAPPROG ---
JALIL Progress Note Assessment/Plan: Assessment/Plan: 83 Y M c dementia, afib, AAA 5.6 cm, PAD c significant iliac stenosis, here with ischemic calcaneal ulcer s/p operative debridement. He has expressed to other providers his wish to keep his leg, but again, CTA again shows significant iliac stenosis as well as more distal stenoses but he has refused Dr. Dietrich' recommendation for angioplasty and/or iliac stents on several occasions.We have discussed risks and options and that he could lose his leg without improved vascular inflow. Discussed situation at length with JACOB, who feels it would be beneficial for him to have angioplasty. She will discuss with patient. S: c/o pain when moving his legs. Refusing angioplasty. O: alert, agitated, uncooperative Wound vac to suction over calcaneal ulcer. allevyn protective dressings over shins and underlying skin intact. 10/16/18 16:39 Objective: Vital Signs Temp Pulse Resp BP Pulse Ox 36.4 C 69 18 163/75 H 95 10/16/18 15:28 10/16/18 15:28 10/16/18 15:28 10/16/18 15:28 10/16/18 15:28 Laboratory Results 10/15/18 09:50 10/15/18 09:50 10/15/18 10/16/18 10/17/18 05:59 05:59 05:59 Intake Total 2361 250 1614 Output Total 750 1000 Balance 1611 -750 1614 ICD10 Worksheet Patient Problems: Problems Problem Status Onset Peripheral vascular disease Acute Ulcer of right lower leg Acute Acute kidney injury Acute Atrial flutter Acute Cervical strain Acute DVT (deep venous thrombosis) Acute Dehydration Acute Displaced fracture of right femoral neck Acute Elevated troponin Acute Fever Acute Head injury Acute Hypoxemia Acute Hypoxia Acute Nausea, vomiting, and diarrhea Acute Palliative care encounter Acute Pancreatitis Acute Pneumonia Acute Pulmonary embolus Acute Severe sepsis Acute Toe infection Acute Vomiting Acute chronic disease mgmt/transitional care Acute
--- NOTE | 2018-10-16 19:09 | HOSPPROG ---
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; some pain related to this but difficult to assess due to patient's dementia * Wound infection * Iliac artery stenosis, severe, on right * Atrial fibrillation chronic paroxysmal on Eliquis at home, resumed at this time after surgery * Abdominal aortic aneurysm, appears asymptomatic, 5.6 cm * BPH chronic on Flomax * Dementia: mild at baseline but here having Significant intermittent Metabolic/ Toxic Encephalopathy, especially after pain meds given for dressing changes * Iron deficiency anemia, on home iron sulfate therapy, with ongoing microcytic anemia * DNR per patient request After yesterday's discussion in which he as usual declined iliac artery angioplasty (has done so for years), he has reviewed with his friend and YAMILETH Gunn, and he is now agreeing to proceed with angioplasty. He is aware that he has foot necrosis and is expected to lose his foot unless revascularized, and continues to state as in past that he definitely wants to keep his foot/leg. (Note that during the times here when is not having encephalopathy, he is very clear in our conversations about his leg and does have decisional capacity) PLANS: * Continue wound care ( I reviewed w wound care nurse; wound vacc is not effective for his heel wound, and she will discontinue at next dressing change) * Pain management, ongoing careful titration for relief with minimal side effects as able * I reviewed the patients willingness for angioplasty with IR team and with Dr Dietrich today; they will review with patient and make plans to proceed; they will be recommending also repairing his aneurysm as his goals are to continue living and due to chances of future ischemia from that level) * continue to hold his eliquis for now, will add heparin now he has been off 48 hrs * Continue iron replacement (will give a dose of IV iron as progress is minimal here) * I discussed with Dr Vo of ethics team today who will see patient, consulted due to nurses feeling caught in difficult situation with pain control and confusion issues as well as patient's repeated changing his mind about accepting parts of his established care plan, other issues Seen by me today on hospitalist rounds as well as multidisciplinary rounds SUBJECTIVE: Still w pain at wounds as previous no sob, nausea, or other new sxs OBJECTIVE Vitals reviewed: Stable without fever Automobile And Property Underwriter, my review: Sinus Exam: alert much more conversant, really quite oriented today, very close to his baseline as I know him from previous hospitalizations (did not get much pain medicine today as there is no dressing change today) skin warm dry color ok resps not labored lungs clear BSs heart regular abd soft nondistended nontender, bowel sounds present limbs warm, no edema; dressings clean and dry on his leg iv site ok Objective: Vital Signs Temp Pulse Resp BP Pulse Ox 36.4 C 69 18 163/75 H 95 10/16/18 15:28 10/16/18 15:28 10/16/18 15:28 10/16/18 15:28 10/16/18 15:28 Laboratory Results 10/15/18 09:50 10/15/18 09:50 10/15/18 10/16/18 10/17/18 06:59 06:59 06:59 Intake Total 2361 1864 240 Output Total 750 1000 1250 Balance 1611 864 1010 - Time Spent With Patient Time Spent with Patient: greater than 35 minutes Time Spent with Patient: Greater than 35 minutes spent on this patients care, greater than 50% of time spent counseling, educating, and coordinating care regarding the above mentioned plan. ICD10 Worksheet Patient Problems: Problems Problem Status Onset Peripheral vascular disease Acute Ulcer of right lower leg Acute Acute kidney injury Acute Atrial flutter Acute Cervical strain Acute DVT (deep venous thrombosis) Acute Dehydration Acute Displaced fracture of right femoral neck Acute Elevated troponin Acute Fever Acute Head injury Acute Hypoxemia Acute Hypoxia Acute Nausea, vomiting, and diarrhea Acute Palliative care encounter Acute Pancreatitis Acute Pneumonia Acute Pulmonary embolus Acute Severe sepsis Acute Toe infection Acute Vomiting Acute chronic disease mgmt/transitional care Acute
[2018-10-16] MEDS: BACLOFEN 10 MG TAB PO SCH (20:24)
[2018-10-16] MEDS ORDERED: HEPARIN 10,000 UNIT/10 ML MDV (1,000 UNIT/ML) IVP PRN (23:32)
[2018-10-17 00:59] LABS: PLATELET COUNT 168 10^3/uL (150-400)
[2018-10-17 01:19] LABS: INR 1.27 (0.83-1.16); PROTIME(PATIENT) 15.4 SEC (12.0-15.0)
[2018-10-17] MEDS: HEPARIN/DEXTROSE 500 ML IV SCH ×2 (02:13→21:00)
[2018-10-17] MEDS: traMADol 50 MG TAB PO SCH ×6 (02:15→20:18)
[2018-10-17] MEDS: DILTIAZEM 30 MG TAB PO SCH ×4 (05:46→20:33)
[2018-10-17] MEDS: amLODIPine BESYLATE 5 MG TAB PO SCH (10:03)
[2018-10-17] MEDS: SENNOSIDES/DOCUSATE SODIUM TAB PO SCH ×2 (10:03→20:33)
[2018-10-17] MEDS: TAMSULOSIN HCL 0.4 MG CAP PO SCH (10:03)
[2018-10-17] MEDS: FERROUS SULFATE 325 MG TAB PO SCH ×2 (10:03→20:33)
[2018-10-17] MEDS: COLLAGENASE 30 GM OINTMENT TP SCH (10:57)
[2018-10-17] MEDS: MUPIROCIN 2% 22 GM OINT TP SCH (10:58)
--- NOTE | 2018-10-17 13:19 | SOAPPROG ---
JALIL Progress Note Assessment/Plan: Assessment: 83 male with severe posterior calcaneal full thickness pressure sore rt foot difficult to find pedal pulses with poorly cooperative pt requiring sedation for mri exam present situation will be impossible to heal unless he is very compliant with offloading any pressure on rt heel mri pending Plan:heel suspension boot/ art studies 10/08/18 23:37 10/12/18 10:35 Patient is more alert today/afebrile/vital signs stable status post foot debridement CTA again shows significant iliac stenosis as well as more distal stenoses He would benefit from angioplasty and/or iliac stents for which she is refused in the past on several occasions He also has a smallish abdominal aneurysm at 5.6 that is less concerning We have discussed risks and options and that he could lose his leg without improved vascular inflow and he is considering cooperating with angioplasty and stenting 10/17/18 13:19 STILL CONTEMPLATING ENDOVASCULAR REPAIR OF HIS ILIAC STENOSES AND AAA CONDITION OTHERWISE UNCHANGED Objective: Vital Signs Temp Pulse Resp BP Pulse Ox 36.8 C 65 16 145/67 H 96 10/17/18 07:54 10/17/18 07:54 10/17/18 07:54 10/17/18 10:03 10/17/18 07:54 Laboratory Results 10/17/18 00:50 10/15/18 09:50 10/16/18 10/17/18 10/18/18 05:59 05:59 05:59 Intake Total 250 2756 Output Total 1000 2250 500 Balance -750 506 -500 PT 15.4 SEC (12.0-15.0) H 10/17/18 00:50 INR 1.27 (0.83-1.16) H 10/17/18 00:50 ICD10 Worksheet Patient Problems: Problems Problem Status Onset Peripheral vascular disease Acute Ulcer of right lower leg Acute Acute kidney injury Acute Atrial flutter Acute Cervical strain Acute DVT (deep venous thrombosis) Acute Dehydration Acute Displaced fracture of right femoral neck Acute Elevated troponin Acute Fever Acute Head injury Acute Hypoxemia Acute Hypoxia Acute Nausea, vomiting, and diarrhea Acute Palliative care encounter Acute Pancreatitis Acute Pneumonia Acute Pulmonary embolus Acute Severe sepsis Acute Toe infection Acute Vomiting Acute chronic disease mgmt/transitional care Acute
--- NOTE | 2018-10-17 15:30 | HOSPPROG ---
Hospitalist Progress Note Assessment/Plan: 83-year-old [facility] after his right lower extremity wound appeared worse and was sent to the emergency room. His past medical history is significant for AFib on Eliquis and peripheral vascular disease. 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 Complicated by poor vascular flow. Reviewed chart notes and surgery notes. Patient will likely lose his foot unless revascularization. He has refused previous attempts at angioplasty for years however is considering it at this time. * Continue wound care * Appreciate surgery follow-up # peripheral vascular disease including significant iliac stenosis as well as more distal stenosis. * Would benefit from angioplasty and/or iliac stents. * Small aortic aneurysm at 5.6 cm * Patient is contemplating endovascular repair of his iliac stenosis and AAA otherwise unchanged # atrial fibrillation, chronic on Eliquis. Eliquis on hold for possible surgery and on Heparin # BPH on Flomax # dementia, mild at baseline but having intermittent encephalopathy associated with pain medications given for dressing changes. As well as his acute illness. # iron deficiency anemia # patient DNR Subjective: Patient new to me and chart review. Having some pain in his leg but otherwise no new complaints. Objective: Vital Signs Temp Pulse Resp BP Pulse Ox 36.9 C 68 20 125/65 H 95 10/17/18 15:22 10/17/18 15:22 10/17/18 15:22 10/17/18 15:22 10/17/18 15:22 Laboratory Results 10/17/18 00:50 10/15/18 09:50 10/16/18 10/17/18 10/18/18 05:59 05:59 05:59 Intake Total 250 2756 Output Total 1000 2250 500 Balance -750 506 -500 PT 15.4 SEC (12.0-15.0) H 10/17/18 00:50 INR 1.27 (0.83-1.16) H 10/17/18 00:50 - Physical Exam Constitutional: chronically ill appearing Eyes: PERRL Ears, Nose, Mouth, Throat: moist mucous membranes Cardiovascular: irregularly irregular Respiratory: no respiratory distress Gastrointestinal: soft, non-tender abdomen Skin: pressure ulcer (Calcaneal with pillows to prevent excess pressure present diminished pulses), other Musculoskeletal: generalized weakness Neurologic: No AAOx3 Psychiatric: interacting appropriately ICD10 Worksheet Patient Problems: Problems Problem Status Onset Peripheral vascular disease Acute Ulcer of right lower leg Acute Acute kidney injury Acute Atrial flutter Acute Cervical strain Acute DVT (deep venous thrombosis) Acute Dehydration Acute Displaced fracture of right femoral neck Acute Elevated troponin Acute Fever Acute Head injury Acute Hypoxemia Acute Hypoxia Acute Nausea, vomiting, and diarrhea Acute Palliative care encounter Acute Pancreatitis Acute Pneumonia Acute Pulmonary embolus Acute Severe sepsis Acute Toe infection Acute Vomiting Acute chronic disease mgmt/transitional care Acute
[2018-10-17] MEDS: BACLOFEN 10 MG TAB PO SCH (20:19)
[2018-10-18] MEDS: traMADol 50 MG TAB PO SCH ×6 (02:33→22:29)
[2018-10-18] MEDS: NS W/ 20 KCl/L 1,000 ML IV SCH (03:57)
[2018-10-18] MEDS: DILTIAZEM 30 MG TAB PO SCH ×4 (05:12→22:29)
[2018-10-18] MEDS: amLODIPine BESYLATE 5 MG TAB PO SCH (09:47)
[2018-10-18] MEDS: MUPIROCIN 2% 22 GM OINT TP SCH (09:47)
[2018-10-18] MEDS: COLLAGENASE 30 GM OINTMENT TP SCH (09:47)
[2018-10-18] MEDS: FERROUS SULFATE 325 MG TAB PO SCH ×2 (09:47→22:29)
[2018-10-18] MEDS: TAMSULOSIN HCL 0.4 MG CAP PO SCH (09:47)
[2018-10-18] MEDS: SENNOSIDES/DOCUSATE SODIUM TAB PO SCH ×2 (09:47→22:29)
[2018-10-18] MEDS: fentaNYL 12 MCG PATCH TD SCH (10:11)
--- NOTE | 2018-10-18 11:30 | SOAPPROG ---
SOAP Progress Note Assessment/Plan: Assessment: 83 male with severe posterior calcaneal full thickness pressure sore rt foot difficult to find pedal pulses with poorly cooperative pt requiring sedation for mri exam present situation will be impossible to heal unless he is very compliant with offloading any pressure on rt heel mri pending Plan:heel suspension boot/ art studies 10/08/18 23:37 10/12/18 10:35 Patient is more alert today/afebrile/vital signs stable status post foot debridement CTA again shows significant iliac stenosis as well as more distal stenoses He would benefit from angioplasty and/or iliac stents for which she is refused in the past on several occasions He also has a smallish abdominal aneurysm at 5.6 that is less concerning We have discussed risks and options and that he could lose his leg without improved vascular inflow and he is considering cooperating with angioplasty and stenting 10/17/18 13:19 STILL CONTEMPLATING ENDOVASCULAR REPAIR OF HIS ILIAC STENOSES AND AAA CONDITION OTHERWISE UNCHANGED 10/18/18 11:29 STILL PARTIALLY OUT TO LUNCH/AFEBRILE/UNCOOPERATIVE AND DIFFICULT TO CARE FOR STILL WALL FILLING ABOUT PROCEEDING WITH ANGIOPLASTY RIGHT LEG WOUND IS FOUL AND READY FOR VAC CHANGE IN THE MORNING BUT UNLIKELY TO HEAL WITHOUT IMPROVE VASCULARITY Objective: Vital Signs Temp Pulse Resp BP Pulse Ox 37.0 C 75 16 141/65 H 90 L 10/18/18 08:00 10/18/18 08:00 10/18/18 08:00 10/18/18 08:00 10/18/18 08:00 Laboratory Results 10/17/18 00:50 10/15/18 09:50 10/17/18 10/18/18 10/19/18 05:59 05:59 05:59 Intake Total 2756 1147 Output Total 2250 1275 Balance 506 -128 PT 15.4 SEC (12.0-15.0) H 10/17/18 00:50 INR 1.27 (0.83-1.16) H 10/17/18 00:50 ICD10 Worksheet Patient Problems: Problems Problem Status Onset Peripheral vascular disease Acute Ulcer of right lower leg Acute Acute kidney injury Acute Atrial flutter Acute Cervical strain Acute DVT (deep venous thrombosis) Acute Dehydration Acute Displaced fracture of right femoral neck Acute Elevated troponin Acute Fever Acute Head injury Acute Hypoxemia Acute Hypoxia Acute Nausea, vomiting, and diarrhea Acute Palliative care encounter Acute Pancreatitis Acute Pneumonia Acute Pulmonary embolus Acute Severe sepsis Acute Toe infection Acute Vomiting Acute chronic disease mgmt/transitional care Acute
--- NOTE | 2018-10-18 14:46 | HOSPPROG ---
Hospitalist Progress Note Assessment/Plan: 83[facility] after his right lower extremity wound appeared worse and was sent to the emergency room. His past medical history is significant for AFib on Eliquis and peripheral vascular disease. 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 Complicated by poor vascular flow. Reviewed chart notes and surgery notes. Patient will likely lose his foot unless revascularization. He has refused previous attempts at angioplasty for years, He did agree to procedure last week but today is again refusing * Continue wound care * Appreciate surgery follow-up, although patient is refusing all care today * will talk with MD CARSON, not sure what our goals are if he continues to refuse everything. # peripheral vascular disease including significant iliac stenosis as well as more distal stenosis. * Would benefit from angioplasty and/or iliac stents. * Small aortic aneurysm at 5.6 cm * Patient is again refusing procedure. # encephalopathy, # atrial fibrillation, chronic on Eliquis. Eliquis on hold for possible surgery and on Heparin # BPH on Flomax # dementia, mild at baseline but having intermittent encephalopathy associated with pain medications given for dressing changes as well as his acute illness. Pt mental status seems to wax and wane, today he was pretty belligerent refusing all blood draws and now does not want surgery I discussed with Dr. Dietrich who feels he will lose his leg if he does not proceed with any type of revascularization however the patient adamantly refuses at this time. An ethics consult did state he was competent to make his medical decisions. I had a long discussion with Velia, his MD CARSON and she would like to meet with Dr. Dietrich and get a plan of care established with Adams and will tentatively meet tomorrow with Dr. Dietrich. # iron deficiency anemia # patient DNR Subjective: Patient refusing care today Objective: Vital Signs Temp Pulse Resp BP Pulse Ox 37.0 C 75 16 141/65 H 90 L 10/18/18 08:00 10/18/18 08:00 10/18/18 08:00 10/18/18 08:00 10/18/18 08:00 Laboratory Results 10/17/18 00:50 10/15/18 09:50 10/17/18 10/18/18 10/19/18 05:59 05:59 05:59 Intake Total 9576 1147 Output Total 2250 1275 Balance 506 -128 PT 15.4 SEC (12.0-15.0) H 10/17/18 00:50 INR 1.27 (0.83-1.16) H 10/17/18 00:50 - Time Spent With Patient Time Spent with Patient: greater than 25 minutes (Greater than 25 min spent with counseling and coordination of care in discussions with his MD YAMILETH Gunn) Time Spent with Patient: Greater than 25 minutes spent on this patients care, greater than 50% of time spent counseling, educating, and coordinating care regarding the above mentioned plan. - Physical Exam Constitutional: chronically ill appearing Psychiatric: encephalopathic, agitated (Would not let me examine him.) ICD10 Worksheet Patient Problems: Problems Problem Status Onset DVT (deep venous thrombosis) Acute Acute kidney injury Acute Fever Acute Hypoxia Acute Severe sepsis Acute Ulcer of right lower leg Acute Peripheral vascular disease Acute chronic disease mgmt/transitional care Acute Nausea, vomiting, and diarrhea Acute Pancreatitis Acute Dehydration Acute Hypoxemia Acute Head injury Acute Cervical strain Acute Pulmonary embolus Acute Elevated troponin Acute Palliative care encounter Acute Pneumonia Acute Toe infection Acute Atrial flutter Acute Vomiting Acute Displaced fracture of right femoral neck Acute
[2018-10-18] MEDS: ENOXAPARIN 100 MG/ML SYR SC SCH ×2 (15:21→22:28)
[2018-10-18] MEDS: BACLOFEN 10 MG TAB PO SCH (22:29)
[2018-10-19] MEDS: traMADol 50 MG TAB PO SCH ×3 (03:29→12:11)
[2018-10-19] MEDS: DILTIAZEM 30 MG TAB PO SCH ×4 (06:39→21:38)
--- NOTE | 2018-10-19 09:00 | SOAPPROG ---
JALIL Progress Note Assessment/Plan: Assessment/Plan: 83 Y M c dementia, afib, AAA 5.6 cm, PAD c significant iliac stenosis, here with ischemic calcaneal ulcer s/p operative debridement. He has expressed to other providers his wish to keep his leg, but again, CTA again shows significant iliac stenosis as well as more distal stenoses but he has refused Dr. Dietrich' recommendation for angioplasty and/or iliac stents on several occasions.We have discussed risks and options and that he could lose his leg without improved vascular inflow. Discussed situation at length with JACOB, who feels it would be beneficial for him to have angioplasty. She will discuss with patient. S: c/o pain when moving his legs. Refusing angioplasty. O: alert, agitated, uncooperative Wound vac to suction over calcaneal ulcer. allevyn protective dressings over shins and underlying skin intact. 10/16/18 16:39 10/19/18 08:59 Pt sleeping at time of visit. Chose not to awaken. Plan for wound vac change and further discussion of next steps with JACOB today. Objective: Vital Signs Temp Pulse Resp BP Pulse Ox 36.9 C 67 16 146/75 H 95 10/19/18 05:21 10/19/18 08:54 10/19/18 08:54 10/19/18 05:21 10/19/18 08:54 Laboratory Results 10/17/18 00:50 10/15/18 09:50 10/18/18 10/19/18 10/20/18 05:59 05:59 05:59 Intake Total 1147 2018 665 Output Total 1275 700 Balance -128 1318 665 PT 15.4 SEC (12.0-15.0) H 10/17/18 00:50 INR 1.27 (0.83-1.16) H 10/17/18 00:50 ICD10 Worksheet Patient Problems: Problems Problem Status Onset Peripheral vascular disease Acute Ulcer of right lower leg Acute Acute kidney injury Acute Atrial flutter Acute Cervical strain Acute DVT (deep venous thrombosis) Acute Dehydration Acute Displaced fracture of right femoral neck Acute Elevated troponin Acute Fever Acute Head injury Acute Hypoxemia Acute Hypoxia Acute Nausea, vomiting, and diarrhea Acute Palliative care encounter Acute Pancreatitis Acute Pneumonia Acute Pulmonary embolus Acute Severe sepsis Acute Toe infection Acute Vomiting Acute chronic disease mgmt/transitional care Acute
--- NOTE | 2018-10-19 09:55 | ASMTCMCOM ---
CM Note CM Note Notes: Patient is a long-term resident at [facility], updated notes sent. Soke to Velia, his [facility], #[phone], she plans on meeting with Dr. Dietrich today at 1 p.m. to discuss the plan for surgery. As of yesterday, patient still refusing any procedures. Ethics has been involved, please refer to notes for further details. Velia would like patient to have the revascularization surgery. Palliative Care consulted on 10/09 - spoke with Shawna at [facility], will need to send order/referral if they are to follow outpatient at [facility]. [facility] would like to hold off on PC/Hospice at the moment until she has a discussion with Dr. Kalro Matos at [facility] updated on current plan. CM will continue to follow. Plan: Return to [facility] with possible [facility] PC Follow-Up Date Signed: 10/19/2018 09:54 AM Electronically Signed By:Shana Marquez RN
[2018-10-19] MEDS: HYDROmorphONE/DILAUDID 1 MG/ML INJ IVP PRN (10:13)
[2018-10-19] MEDS ORDERED: traMADol 50 MG TAB PO PRN (12:00)
[2018-10-19] MEDS: SENNOSIDES/DOCUSATE SODIUM TAB PO SCH ×2 (12:04→21:38)
[2018-10-19] MEDS: amLODIPine BESYLATE 5 MG TAB PO SCH (12:04)
[2018-10-19] MEDS: traMADol 50 MG TAB PO PRN ×3 (12:04→21:38)
[2018-10-19] MEDS: FERROUS SULFATE 325 MG TAB PO SCH ×2 (12:04→21:37)
[2018-10-19] MEDS: TAMSULOSIN HCL 0.4 MG CAP PO SCH (12:04)
--- NOTE | 2018-10-19 12:30 | WOCRNPDOC ---
LIZ Advanced Assessment Note - Skin Integrity Problem, Advanced Assess Right Heel Dressing Type: Black Vac Foam, Silver Contact Layer, Wound Vac Dressing Description: Intact Exudate Amount: Scant Exudate Characteristic(s): Serosanguinous Integumentary Issue Intervention: Dressing Changed Cassi Wound Tissue: Erythema (marked with sharpie), Macerated, Swollen, Erythema Marked by Wound RN, Painful/Tender Cassi Wound Swelling: Moderate Wound Bed Color: Black, Brown, Red, Yellow Wound Bed Constitution: Granulation Tissue (10%), Bone (10%), Mixed Loose & Adhered Slough/Eschar (80%) Wound Edges: Not Attached Site Odor: Strong, Foul Site Measurement - Head-to-Toe Length X Width X Depth (cm): 7x9x0.7 Pressure Injury Stage: Stage 4 Pressure Injury Present on Admit: Yes Skin Integrity Problem Comment: Using extremity sling and 2 extra sets of hands Wound vac dressing removed. Wound bed found to be almost 100% necrotic and exposed bone. Vac no longer indicated due to extensive necrosis. Cassi wound tissue as well as wound bed cleaned with normal saline and gauze; skin prep applied to periwound tissue for protection. Dampened gauze with vashe applied as wet to dry dressing, covered with dry gauze and abd; wrapped with Kerlix. Off loading boot reapplied. Jose SHEPARD, GRIP BOSS and Connie MAYA in room for care. Chayito Arndt, Betty Barrera, Feng Dietrich and Quirino notified of all findings. Wound care will continue to follow. Right Lateral Proximal Ankle Dressing Type: Allevyn Life, Hydrofera Blue Ready Dressing Description: Clean/Dry, Intact Exudate Amount: Minimal Exudate Color: Brown Exudate Characteristic(s): Serosanguinous Integumentary Issue Intervention: Dressing Changed Cassi Wound Tissue: Erythema (cassi wound), Macerated (50%), Swollen, Painful/ Tender Cassi Wound Swelling: Moderate Wound Bed Color: Ona Wound Bed Constitution: Granulation Tissue (50%), Tendon (10%), Adhered Slough ( 30%) Wound Edges: Not Attached Site Measurement - Head-to-Toe Length X Width X Depth (cm): 2.2x2.4x0.4 Pressure Injury Stage: Stage 4 Pressure Injury Present on Admit: Yes Skin Integrity Problem Comment: Dressing removed. Hydrofera Blue Ready had turned to white. Wound cleaned with normal saline and gauze. Hydrofera Blue Ready cut to fit wound bed. Allevyn life applied to cover. Right Lateral Distal Ankle Dressing Type: Allevyn Life, Hydrofera Blue Ready Dressing Description: Clean/Dry, Intact Integumentary Issue Intervention: Dressing Changed Cassi Wound Tissue: Erythema, Macerated (60%), Swollen, Painful/Tender Cassi Wound Swelling: Moderate Wound Bed Color: Blue, Ona, Red, White Wound Bed Constitution: Smooth Tissue, Red/Ona - Non Granular Tissue Wound Edges: Epithelizing (partially), Not Attached Site Measurement - Head-to-Toe Length X Width X Depth (cm): 2x1x0.2 Pressure Injury Stage: Stage 4 Pressure Injury Present on Admit: Yes Skin Integrity Problem Comment: Dressing removed. Hydrofera Blue Ready had turned to white. Wound cleaned with normal saline and gauze. Hydrofera Blue Ready cut to fit wound bed. Allevyn life applied to cover.
[2018-10-19] MEDS: MUPIROCIN 2% 22 GM OINT TP SCH (13:37)
[2018-10-19] MEDS: COLLAGENASE 30 GM OINTMENT TP SCH (13:37)
[2018-10-19] MEDS: ENOXAPARIN 100 MG/ML SYR SC SCH ×2 (14:44→17:17)
[2018-10-19] MEDS: SODIUM HYPOCHLORITE (DAKINS 1/4 STR) 473 ML BTL TP SCH ×2 (14:49→22:16)
--- NOTE | 2018-10-19 15:04 | HOSPPROG ---
Hospitalist Progress Note Assessment/Plan: 83-year-old [facility] after his right lower extremity wound appeared worse and was sent to the emergency room. His past medical history is significant for AFib on Eliquis and peripheral vascular disease. Discussed with wound care today his wound is significantly worse and not improving on current therapies. He needs either revascularization or amputation at this point. Did discuss this with patient at with his friend Velia at the bedside and he is agreeable to this Dr. Dietrich will attempt to come by today between surgeries. To discuss. 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 Complicated by poor vascular flow. Reviewed chart notes and surgery notes. Patient will likely lose his foot unless revascularization. He has refused previous attempts at angioplasty for years, He did agree to procedure last week but today is again refusing * Continue wound care * Appreciate surgery follow-up, which more appropriate today * Patient agreeable to surgical procedure, Velia his MD POA is at bedside # peripheral vascular disease including significant iliac stenosis as well as more distal stenosis. * Would benefit from angioplasty and/or iliac stents. * Small aortic aneurysm at 5.6 cm * Patient is again refusing procedure. # encephalopathy, # atrial fibrillation, chronic on Eliquis. Eliquis on hold for possible surgery and on Heparin # BPH on Flomax # dementia, mild at baseline but having intermittent encephalopathy associated with pain medications given for dressing changes as well as his acute illness. Pt mental status seems to wax and wane, today he is much more appropriate he seems to do better with his friend Velia at the bedside. # iron deficiency anemia # patient DNR Subjective: Discussed in multidisciplinary rounds. And wound care. His wound is worsening despite maximal therapy and he will need revascularization for any hope of this to heal. Patient is agreeable to this today. Objective: Vital Signs Temp Pulse Resp BP Pulse Ox 36.9 C 67 16 146/75 H 95 10/19/18 05:21 10/19/18 08:54 10/19/18 08:54 10/19/18 14:08 10/19/18 08:54 Laboratory Results 10/17/18 00:50 10/15/18 09:50 10/18/18 10/19/18 10/20/18 05:59 05:59 05:59 Intake Total 1147 2018 665 Output Total 1275 700 Balance -128 1318 665 PT 15.4 SEC (12.0-15.0) H 10/17/18 00:50 INR 1.27 (0.83-1.16) H 10/17/18 00:50 - Time Spent With Patient Time Spent with Patient: greater than 25 minutes (Discussion with patient and friend-MD CARSON greater than 50% counseling) Time Spent with Patient: Greater than 25 minutes spent on this patients care, greater than 50% of time spent counseling, educating, and coordinating care regarding the above mentioned plan. - Physical Exam Constitutional: chronically ill appearing Eyes: PERRL Cardiovascular: regular rate and rhythym Respiratory: no respiratory distress Gastrointestinal: soft, non-tender abdomen Skin: other (See wound care note) Musculoskeletal: generalized weakness Psychiatric: interacting appropriately ICD10 Worksheet Patient Problems: Problems Problem Status Onset DVT (deep venous thrombosis) Acute Acute kidney injury Acute Fever Acute Hypoxia Acute Severe sepsis Acute Ulcer of right lower leg Acute Peripheral vascular disease Acute chronic disease mgmt/transitional care Acute Nausea, vomiting, and diarrhea Acute Pancreatitis Acute Dehydration Acute Hypoxemia Acute Head injury Acute Cervical strain Acute Pulmonary embolus Acute Elevated troponin Acute Palliative care encounter Acute Pneumonia Acute Toe infection Acute Atrial flutter Acute Vomiting Acute Displaced fracture of right femoral neck Acute
[2018-10-19] MEDS: BACLOFEN 10 MG TAB PO SCH (21:38)
[2018-10-20] MEDS: ENOXAPARIN 100 MG/ML SYR SC SCH ×2 (01:05→13:14)
[2018-10-20] MEDS: DILTIAZEM 30 MG TAB PO SCH ×4 (05:20→22:06)
[2018-10-20 06:03] LABS: PLATELET COUNT 189 10^3/uL (150-400)
[2018-10-20 06:15] LABS: INR 1.15 (0.83-1.16); PROTIME(PATIENT) 14.2 SEC (12.0-15.0)
[2018-10-20] MEDS: amLODIPine BESYLATE 5 MG TAB PO SCH (10:46)
[2018-10-20] MEDS: TAMSULOSIN HCL 0.4 MG CAP PO SCH (10:47)
[2018-10-20] MEDS: SODIUM HYPOCHLORITE (DAKINS 1/4 STR) 473 ML BTL TP SCH ×2 (10:47→22:55)
[2018-10-20] MEDS: FERROUS SULFATE 325 MG TAB PO SCH ×2 (10:47→21:47)
[2018-10-20] MEDS: SENNOSIDES/DOCUSATE SODIUM TAB PO SCH ×2 (10:47→21:47)
[2018-10-20] MEDS: HYDROmorphONE/DILAUDID 1 MG/ML INJ IVP PRN (11:35)
[2018-10-20] MEDS: MAGNESIUM HYDROXIDE 30 ML UDCUP PO PRN (13:14)
--- NOTE | 2018-10-20 13:29 | HOSPPROG ---
Hospitalist Progress Note Assessment/Plan: 83-year-old [facility] after his right lower extremity wound appeared worse and was sent to the emergency room. His past medical history is significant for AFib on Eliquis and peripheral vascular disease. Discussed with wound care today his wound is significantly worse and not improving on current therapies. He needs either revascularization or amputation at this point. 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 Complicated by poor vascular flow. Reviewed chart notes and surgery notes. Patient will likely lose his foot unless revascularization. He has refused previous attempts at angioplasty for years, He did agree to procedure last week and agreeable when his friend and JACOB is at bedside. Unclear if Dr. Dietrich discussed options with patient. * Continue wound care * Appreciate surgery follow-up, which more appropriate today * Patient agreeable to surgical procedure yesterday. Today he is more ambivalent but not refusing. # peripheral vascular disease including significant iliac stenosis as well as more distal stenosis. * Would benefit from angioplasty and/or iliac stents. * Small aortic aneurysm at 5.6 cm * Patient is agreeable, but needs to discuss with surgery. * will continue lovenox for now. # encephalopathy, intermittent, much more appropriate when friend at bedside. # atrial fibrillation, chronic on Eliquis. Eliquis on hold for possible surgery and on lovenox. # BPH on Flomax # dementia, mild at baseline but having intermittent encephalopathy associated with pain medications given for dressing changes as well as his acute illness. Pt mental status seems to wax and wane, today he is much more appropriate he seems to do better with his friend Trena at the bedside. # iron deficiency anemia # patient DNR Dispo.. [facility] called Case Management today to state that Trena has not been paying his bills at [facility] and they may not really except him there. They need to discuss this with trena it is unclear if she is his financial power -of-defense attorney or just his medical power of defense attorney. It might benefit him and make it easier on as if she would step-down and allow us to appoint a guardian or if she would be more available to discuss options as his mental status does wax and wane. At this time case management is going to talk with Trena to see if Adams needs to be assessed for Medicaid and if [facility] will take him back. Adult protective services is involved. Subjective: Discussed in multidisciplinary rounds. Patient has no specific complaints today is a little less agreeable today because his friend is at the bedside but is stating he would consider surgery to save his leg. Objective: Vital Signs Temp Pulse Resp BP Pulse Ox 37.2 C 105 H 18 159/87 H 91 L 10/20/18 12:03 10/20/18 13:13 10/20/18 12:03 10/20/18 13:13 10/20/18 12:03 Laboratory Results 10/20/18 05:00 10/20/18 05:00 10/19/18 10/20/18 10/21/18 05:59 05:59 05:59 Intake Total 2017 1491 Output Total 700 1550 Balance 1318 -59 PT 14.2 SEC (12.0-15.0) 10/20/18 05:00 INR 1.15 (0.83-1.16) 10/20/18 05:00 - Physical Exam Constitutional: no apparent distress, chronically ill appearing Eyes: PERRL Ears, Nose, Mouth, Throat: moist mucous membranes Cardiovascular: regular rate and rhythym Respiratory: no respiratory distress Gastrointestinal: soft, non-tender abdomen Genitourinary: no bladder fullness Skin: other (Pressure boots on wound care has been following his feet the wound is not healing despite efforts with wound VAC and dressing changes. Poor circulation) Musculoskeletal: generalized weakness Psychiatric: flat affect ICD10 Worksheet Patient Problems: Problems Problem Status Onset DVT (deep venous thrombosis) Acute Acute kidney injury Acute Fever Acute Hypoxia Acute Severe sepsis Acute Ulcer of right lower leg Acute Peripheral vascular disease Acute chronic disease mgmt/transitional care Acute Nausea, vomiting, and diarrhea Acute Pancreatitis Acute Dehydration Acute Hypoxemia Acute Head injury Acute Cervical strain Acute Pulmonary embolus Acute Elevated troponin Acute Palliative care encounter Acute Pneumonia Acute Toe infection Acute Atrial flutter Acute Vomiting Acute Displaced fracture of right femoral neck Acute
--- NOTE | 2018-10-20 15:06 | ASMTCMCOM ---
CM Note CM Note Notes: Patient plan of care reviewed in am rounds. His mentation faciltates and he continues to debate procedure but his ability to make decisions is questionable. Quirino Madrigal from [facility] to reach out to Velia the patient's current POA to determine if she is still interested in this responsibility CM to follow for needs, Plan: Dc to [facility] when medically cleared fo discharge. Date Signed: 10/20/2018 03:05 PM Electronically Signed By:Paty Dunlap RN
--- NOTE | 2018-10-20 16:16 | ASMTCMCOM ---
CM Note CM Note Notes: Per Quirino Bullock, Velia has been handling [employer]. Admittedly not making payments to [facility] at this time. Velia ([phone]) is willing to have palliative discussion tomorrow and discuss potential surgery and goals of care. CM to follow. Plan: Dc to SNF when medically cleared. Date Signed: 10/20/2018 04:15 PM Electronically Signed By:Paty Dunlap RN
--- NOTE | 2018-10-20 16:33 | SOAPPROG ---
SOAP Progress Note Assessment/Plan: Assessment/Plan: 83 Y M c dementia, afib, AAA 5.6 cm, PAD c significant iliac stenosis, here with ischemic calcaneal ulcer s/p operative debridement. Limb threatening ischemic calcaneal ulcer unlikely to heal without better blood supply. Now agreeable to intervention. Discussed with Dr. Dietrich and IR. Angioplasty ordered. Dr. Dietrich and Dr. Srinivasan will likely need to coordinate as AAA repair will likely be done at same time as iliac stenting. This could possibly happen . NPO p midnight on Fri, and continue holding eliquis. Will hold lovenox accordingly. Discussed with patient. He seems to understand and is eager to have procedure done now. Vac to suction. Allevyn's in place. Afebrile. WBCs wnl. 10/20/18 16:33 Objective: Vital Signs Temp Pulse Resp BP Pulse Ox 36.9 C 95 18 150/81 H 93 10/20/18 16:00 10/20/18 16:00 10/20/18 16:00 10/20/18 16:00 10/20/18 16:00 Laboratory Results 10/20/18 05:00 10/20/18 05:00 10/19/18 10/20/18 10/21/18 05:59 05:59 05:59 Intake Total 2018 1491 Output Total 700 1550 Balance 1318 -59 PT 14.2 SEC (12.0-15.0) 10/20/18 05:00 INR 1.15 (0.83-1.16) 10/20/18 05:00 ICD10 Worksheet Patient Problems: Problems Problem Status Onset Peripheral vascular disease Acute Ulcer of right lower leg Acute Acute kidney injury Acute Atrial flutter Acute Cervical strain Acute DVT (deep venous thrombosis) Acute Dehydration Acute Displaced fracture of right femoral neck Acute Elevated troponin Acute Fever Acute Head injury Acute Hypoxemia Acute Hypoxia Acute Nausea, vomiting, and diarrhea Acute Palliative care encounter Acute Pancreatitis Acute Pneumonia Acute Pulmonary embolus Acute Severe sepsis Acute Toe infection Acute Vomiting Acute chronic disease mgmt/transitional care Acute
[2018-10-20] MEDS: traMADol 50 MG TAB PO PRN (17:56)
[2018-10-20] MEDS: BACLOFEN 10 MG TAB PO SCH (21:48)
[2018-10-21] MEDS: ENOXAPARIN 100 MG/ML SYR SC SCH ×2 (00:56→12:08)
[2018-10-21] MEDS: DILTIAZEM 30 MG TAB PO SCH ×4 (04:50→22:57)
[2018-10-21] MEDS: TAMSULOSIN HCL 0.4 MG CAP PO SCH (08:42)
[2018-10-21] MEDS: FERROUS SULFATE 325 MG TAB PO SCH ×2 (08:45→22:58)
[2018-10-21] MEDS: amLODIPine BESYLATE 5 MG TAB PO SCH (08:48)
[2018-10-21] MEDS: SENNOSIDES/DOCUSATE SODIUM TAB PO SCH ×2 (08:49→22:58)
[2018-10-21] MEDS: NS W/ 20 KCl/L 1,000 ML IV SCH (09:20)
--- NOTE | 2018-10-21 11:12 | SOAPPROG ---
SOAP Progress Note Assessment/Plan: Assessment/Plan: 83 Y M c dementia, afib, AAA 5.6 cm, PAD c significant iliac stenosis, here with ischemic calcaneal ulcer s/p operative debridement. Limb threatening ischemic calcaneal ulcer unlikely to heal without better blood supply. Now agreeable to intervention. Discussed with Dr. Srinivasan in IR this am. Will plan for more urgent intervention with R iliac angioplasty and stent. Repairing AAA now would require significant longer anesthesia time with femoral cut downs. Could possibly do this at later date if patient more healthy and able to tolerate procedure, although it could be more difficult to to gain vascular access for stent graft after iliac stenting. Continue local wound care. 10/21/18 11:08 Objective: Vital Signs Temp Pulse Resp BP Pulse Ox 37.3 C 67 18 133/63 H 96 10/21/18 08:13 10/21/18 08:13 10/21/18 08:13 10/21/18 08:48 10/21/18 04:53 Laboratory Results 10/20/18 05:00 10/20/18 05:00 10/20/18 10/21/18 10/22/18 05:59 05:59 05:59 Intake Total 1491 900 Output Total 1550 1150 400 Balance -59 -250 -400 PT 14.2 SEC (12.0-15.0) 10/20/18 05:00 INR 1.15 (0.83-1.16) 10/20/18 05:00 ICD10 Worksheet Patient Problems: Problems Problem Status Onset Peripheral vascular disease Acute Ulcer of right lower leg Acute Acute kidney injury Acute Atrial flutter Acute Cervical strain Acute DVT (deep venous thrombosis) Acute Dehydration Acute Displaced fracture of right femoral neck Acute Elevated troponin Acute Fever Acute Head injury Acute Hypoxemia Acute Hypoxia Acute Nausea, vomiting, and diarrhea Acute Palliative care encounter Acute Pancreatitis Acute Pneumonia Acute Pulmonary embolus Acute Severe sepsis Acute Toe infection Acute Vomiting Acute chronic disease mgmt/transitional care Acute
--- NOTE | 2018-10-21 14:30 | HOSPPROG ---
Hospitalist Progress Note Assessment/Plan: 83-year-old with chronic vascular ulcer [facility] after his RLE calcaneal wound appeared worse. He needs either revascularization or amputation at this point. His past medical history is significant for PVD and AFib, on Eliquis. 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 Needs revascularization. He has previously refused surgery, but is now agreeable to intervention. * Plan for IR to perform Rt iliac angioplasty and stent in am, NPO at midnight * Surgery following * Continue wound care # peripheral vascular disease including significant iliac stenosis as well as more distal stenosis. * angioplasty / stent planned as above * Small aortic aneurysm at 5.6 cm * continue lovenox for now, hold in am for procedure # atrial fibrillation, chronic, on Eliquis. Holding Eliquis for intervention On Lovenox, will hold in am # BPH on Flomax # dementia, mild at baseline but at risk for toxic encephalopathy with pain meds (given for dressing changes). Mental status seems to wax and wane. He seems to do better with his friend Velia at the bedside. # iron deficiency anemia # DNR Dispo. Cont inpt. Melissa Navarro communicated to CM that Velia has not been paying his bills at [facility] and they may not accept him back. They need to discuss this with velia. It is unclear if she is his financial [id number] or just his medical power of lidder. It might benefit him and make it easier if she would step-down and allow us to appoint a guardian or if she would be more available to discuss options as his mental status does wax and wane. At this time CM is going to talk with Velia to see if Adams needs to be assessed for Medicaid and if [facility] will take him back. Adult protective services is involved. Subjective: Pt in pretty good spirits today, agreeable to IR intervention tomorrow. Pain controlled. No fevers/chills. Mentation near baseline. Objective: Vital Signs Temp Pulse Resp BP Pulse Ox 37.1 C 69 18 122/60 H 93 10/21/18 12:03 10/21/18 12:03 10/21/18 12:03 10/21/18 12:03 10/21/18 12:03 Laboratory Results 10/20/18 05:00 10/20/18 05:00 10/20/18 10/21/18 10/22/18 05:59 05:59 05:59 Intake Total 1491 900 Output Total 1550 1150 400 Balance -59 -250 -400 PT 14.2 SEC (12.0-15.0) 10/20/18 05:00 INR 1.15 (0.83-1.16) 10/20/18 05:00 - Physical Exam Constitutional: no apparent distress Eyes: PERRL Ears, Nose, Mouth, Throat: moist mucous membranes Cardiovascular: regular rate and rhythym Respiratory: no respiratory distress, clear to auscultation Gastrointestinal: normoactive bowel sounds, soft, non-tender abdomen Skin: warm Musculoskeletal: other (RLE wounds dressed, c/d/i) Psychiatric: poor memory ICD10 Worksheet Patient Problems: Problems Problem Status Onset Peripheral vascular disease Acute Ulcer of right lower leg Acute Acute kidney injury Acute Atrial flutter Acute Cervical strain Acute DVT (deep venous thrombosis) Acute Dehydration Acute Displaced fracture of right femoral neck Acute Elevated troponin Acute Fever Acute Head injury Acute Hypoxemia Acute Hypoxia Acute Nausea, vomiting, and diarrhea Acute Palliative care encounter Acute Pancreatitis Acute Pneumonia Acute Pulmonary embolus Acute Severe sepsis Acute Toe infection Acute Vomiting Acute chronic disease mgmt/transitional care Acute
--- NOTE | 2018-10-21 15:14 | ASMTCMCOM ---
CM Note CM Note Notes: Met with Quirino Gunn and Otto Escobar) to discussed Nisha's Plan of care. Velia agrees with Pt having the stent placed in the next day or so and when medically stable to return to [facility]. Per Velia, Nisha now has both Medicare and Medicaid, so payment to [facility] should not be a problem. Pt continues to be confused at times. CM to monitor needs. Plan: To discharge to [facility] when medically stable Date Signed: 10/21/2018 03:13 PM Electronically Signed By:Marcella North
[2018-10-21] MEDS: HYDROmorphONE/DILAUDID 1 MG/ML INJ IVP PRN (15:36)
[2018-10-21] MEDS: SODIUM HYPOCHLORITE (DAKINS 1/4 STR) 473 ML BTL TP SCH ×2 (15:40→22:00)
--- NOTE | 2018-10-21 16:41 | SOAPPROG ---
SOAP Progress Note Assessment/Plan: Assessment: From an endovascular standpoint: 1. AAA, 5.6cm 2. Right iliac critical stenosis at junction of LAURE and EIA, with an occluded IIA. LAURE - 22mm; EIA = 10mm; the large caliber difference warrants creating a stentgraft combination that will likely leave a 2mm gap between the alcaraz of the stentgraft, and the alcaraz of the LAURE. The stenosis will also likely be cracked/fractured during the process of stent placement, which under normal circumstances, is not a concern with covered stent placement. However, the 2mm difference/gap above mentioned can cause a bleed in the setting of a vessel fracture. This can be repaired at the time by placement of infrarenal AAA stentgraft, fixing the aorta at same time as the leak. 3. Critical/focally occluded LT proximal EIA, with small (relatively) LAURE. 4. LT IIA may have trickle of inflow. Alternatively, both IIA distribution is supplied by TOMY. 5. Elective repair of both EIA and IIA on LT would require either up and over right approach, or brachial artery access. This would also need to be done AFTER AAA stentgraft. If done before, then AAA stengraft would not be amendable afterwards. 6. By repairing AAA, TOMY will be occluded from antegrade stand point, which internal controls analyst risks colonic ischemia +/- buttock claudication. All of the above was discussion with Velia (patient's POA), Dr. Dietrich, Betty Barrera, and Dr. Win today. In summary: 1. Group consensus is that doing everything, including bilateral iliac stenosis , and AAA, which entails bilateral femoral cutdowns, and brachial access, is too much for this patient at this time. 2. It is reasonable to proceed treating just the right side for the acute ischemic RT foot problem. 3. Stenting the RT iliac system does not eliminate possibility of amputation, but would at least help heal BKA if needed 4. Stenting the RT has risk of rupture and bleed as above discussed, which can be repair, at the same time, by stenting the AAA 5. Stenting the AAA has risk of colonic ischemia and buttock claudication. 6. Velia says patient would not want anything drastic, and would not want to be in more pain or debilitation as a result of any medical intervention. And that if there's a relatively short/quick and painless way to pass, that's the way patient would choose. Plan: 1. Friday at 12:30pm. General anesthesia, open cutdown by Dr. Dietrich at RT femoral site, stentgraft repair of RT iliac occlusion. 2. If bleeding occurs, and can be repaired by stentgraft extension on right, proceed. 3. If above fails, and/or if other steps will be needed, such as LT cutdown, AAA repair, or open repair, stop. 4. If no bleeding, then we will see how this helps RT foot. Velia is open to discuss amputation if needed. Velia signed consent after above detailed discussion. Palliative care was present entire time during discussion. 10/21/18 16:24 Subjective: Patient basically asleep when I entered the room. Velia was having a meeting with palliative care. I joined their discussion. Objective: Vital Signs Temp Pulse Resp BP Pulse Ox 37.1 C 69 18 122/60 H 93 10/21/18 12:03 10/21/18 12:03 10/21/18 12:03 10/21/18 12:03 10/21/18 12:03 Laboratory Results 10/20/18 05:00 10/20/18 05:00 10/20/18 10/21/18 10/22/18 05:59 05:59 05:59 Intake Total 1491 900 Output Total 1550 1150 400 Balance -59 -250 -400 PT 14.2 SEC (12.0-15.0) 10/20/18 05:00 INR 1.15 (0.83-1.16) 10/20/18 05:00 CTA was reviewed in detail for planning purposes. ICD10 Worksheet Patient Problems: Problems Problem Status Onset Peripheral vascular disease Acute Ulcer of right lower leg Acute Acute kidney injury Acute Atrial flutter Acute Cervical strain Acute DVT (deep venous thrombosis) Acute Dehydration Acute Displaced fracture of right femoral neck Acute Elevated troponin Acute Fever Acute Head injury Acute Hypoxemia Acute Hypoxia Acute Nausea, vomiting, and diarrhea Acute Palliative care encounter Acute Pancreatitis Acute Pneumonia Acute Pulmonary embolus Acute Severe sepsis Acute Toe infection Acute Vomiting Acute chronic disease mgmt/transitional care Acute
[2018-10-21] MEDS: BACLOFEN 10 MG TAB PO SCH (22:57)
[2018-10-22] MEDS: ENOXAPARIN 100 MG/ML SYR SC SCH ×3 (01:41→20:43)
[2018-10-22] MEDS: NS W/ 20 KCl/L 1,000 ML IV SCH (03:21)
[2018-10-22] MEDS: DILTIAZEM 30 MG TAB PO SCH ×4 (06:17→20:41)
[2018-10-22] MEDS: FERROUS SULFATE 325 MG TAB PO SCH ×2 (09:08→21:10)
[2018-10-22] MEDS: SENNOSIDES/DOCUSATE SODIUM TAB PO SCH ×2 (09:08→21:10)
[2018-10-22] MEDS: amLODIPine BESYLATE 5 MG TAB PO SCH (09:08)
[2018-10-22] MEDS: TAMSULOSIN HCL 0.4 MG CAP PO SCH (09:08)
--- NOTE | 2018-10-22 09:16 | SOAPPROG ---
SOAP Progress Note Assessment/Plan: Assessment/Plan: 83 Y M c dementia, afib, AAA 5.6 cm, PAD c significant iliac stenosis, here with ischemic calcaneal ulcer s/p operative debridement. Plan for R femoral cut down for iliac angioplasty tomorrow. Risks and options fully discussed. Pt agrees. MDPOA has signed consent. S: c/o pain when moving his legs. Agrees to angioplasty. O: alert, agitated Wound vac to suction over calcaneal ulcer. allevyn protective dressings over shins and underlying skin intact. 10/22/18 09:15 Objective: Vital Signs Temp Pulse Resp BP Pulse Ox 37.0 C 68 16 132/60 H 96 10/22/18 08:00 10/22/18 08:00 10/22/18 08:00 10/22/18 08:00 10/22/18 08:00 Laboratory Results 10/20/18 05:00 10/20/18 05:00 10/21/18 10/22/18 10/23/18 05:59 05:59 05:59 Intake Total 900 300 Output Total 1150 1125 Balance -250 -825 PT 14.2 SEC (12.0-15.0) 10/20/18 05:00 INR 1.15 (0.83-1.16) 10/20/18 05:00 ICD10 Worksheet Patient Problems: Problems Problem Status Onset Peripheral vascular disease Acute Ulcer of right lower leg Acute Acute kidney injury Acute Atrial flutter Acute Cervical strain Acute DVT (deep venous thrombosis) Acute Dehydration Acute Displaced fracture of right femoral neck Acute Elevated troponin Acute Fever Acute Head injury Acute Hypoxemia Acute Hypoxia Acute Nausea, vomiting, and diarrhea Acute Palliative care encounter Acute Pancreatitis Acute Pneumonia Acute Pulmonary embolus Acute Severe sepsis Acute Toe infection Acute Vomiting Acute chronic disease mgmt/transitional care Acute
--- NOTE | 2018-10-22 10:57 | HOSPPROG ---
Hospitalist Progress Note Assessment/Plan: 83-year-old with chronic vascular ulcer [facility] after his RLE calcaneal wound appeared worse. He has refused amputation and now planning on revascularization. #Right lower extremity ulcer with calcaneal necrosis - refusing amputation/surgery - now agreeable to revascularization, plan for tomorrow at 1230 with Feng Dietrich and Craig #PVD: Has significant right iliac stent stenosis, focally occluded left prox EIA - angioplasty/stent as above #AAA: 5.6cm - no plan for repair or stent/grafting at present #Dementia: At baseline. At risk for encephalopathy with meds/sedation/anesthesia , etc. Waxes and wanes. #Atrial fibrillation - holding eliquis with intervention #BPH: Continue flomax #Iron deficiency anemia VTE ppx: holding LMWH with procedure Code: DNR, friend Velia is MDPOA Diet: NPO at midnight Dispo: Remain inpatient, procedure tomorrow. Brought up yesterday that [facility] is considering not accepting him back d/t not paying bills. CM is looking into this. Adult protective services is involved. Subjective: Confused but pleasant this afternoon. No new pain or fevers. Objective: Vital Signs Temp Pulse Resp BP Pulse Ox 37.0 C 68 16 132/60 H 96 10/22/18 08:00 10/22/18 08:00 10/22/18 08:00 10/22/18 08:00 10/22/18 08:00 Laboratory Results 10/20/18 05:00 10/20/18 05:00 10/21/18 10/22/18 10/23/18 05:59 05:59 05:59 Intake Total 900 300 Output Total 1150 1125 Balance -250 -825 PT 14.2 SEC (12.0-15.0) 10/20/18 05:00 INR 1.15 (0.83-1.16) 10/20/18 05:00 - Physical Exam Constitutional: no apparent distress Eyes: PERRL Ears, Nose, Mouth, Throat: moist mucous membranes Cardiovascular: regular rate and rhythym, no murmur, rub, or gallop Respiratory: no respiratory distress, no rales or rhonchi, clear to auscultation Gastrointestinal: normoactive bowel sounds, soft, non-tender abdomen, no palpable masses Genitourinary: no bladder fullness, no bladder tenderness, no renal bruits Skin: other (RLE wrapped) Musculoskeletal: generalized weakness Neurologic: other (alert, not oriented) Psychiatric: encephalopathic ICD10 Worksheet Patient Problems: Problems Problem Status Onset Peripheral vascular disease Acute Ulcer of right lower leg Acute Acute kidney injury Acute Atrial flutter Acute Cervical strain Acute DVT (deep venous thrombosis) Acute Dehydration Acute Displaced fracture of right femoral neck Acute Elevated troponin Acute Fever Acute Head injury Acute Hypoxemia Acute Hypoxia Acute Nausea, vomiting, and diarrhea Acute Palliative care encounter Acute Pancreatitis Acute Pneumonia Acute Pulmonary embolus Acute Severe sepsis Acute Toe infection Acute Vomiting Acute chronic disease mgmt/transitional care Acute
[2018-10-22] MEDS: SODIUM HYPOCHLORITE (DAKINS 1/4 STR) 473 ML BTL TP SCH ×2 (15:00→22:16)
[2018-10-22] MEDS: HYDROmorphONE/DILAUDID 1 MG/ML INJ IVP PRN ×3 (15:10→21:59)
--- NOTE | 2018-10-22 15:26 | PDGENHP ---
History & Physical Chief Complaint: Right leg ulcers and calcaneal full-thickness pressure sore History of Present Illness: 83-year-old male who lives in a half-way has known to have peripheral vascular disease which has become progressive. He presents now with multiple ulcers on his right leg including a full-thickness posterior calcaneal ulcer from bed pressure. He has poor peripheral pulses and is actually had toe amputations on his left leg. Present illness is complicated by a 5.6 cm abdominal aneurysm and the patient's the refusal of repair or revascularization in the past. Presently today he is quite somnolent from sedation from a recent MRI making assessment difficult Pertinent Past, Social, Family History: Past medical history: Hypertension/ peripheral vascular disease/AAA/muscle contractures/a fib. Past surgery: Appendectomy left toe amputations, bilateral hip ORIF sites. Allergies are tetracyclines and is Zithromax and sulfa. Medications include Eliquis, baclofen and others listed in the chart. Social history does not smoke but has in the past/he lives at the [facility]. Family history noncontributory Relevant Physical Exam: General a somnolent the poorly cooperative patient at this point, afebrile. HEENT nonicteric, no carotid bruits, no adenopathy. Neck supple full range of motion no bruits. Chest clear and symmetric. Cor regular rhythm. Abdomen soft nontender without masses/she does have some arterial bruits. Genitalia normal without hernias. Extremities absent pedal pulses, bilateral knee contractures, missing toe on the left foot, significant multiple ulcerations around the malleolar I of the right foot with a full- thickness 6 cm pressure sore on the back of his right calcaneus. Neuro exam is difficult at this point but his cranial nerves appear to be intact he is somnolent and poorly cooperative Cardiorespiratory Assessment: Impression: A severe peripheral vascular disease with pressure sores on his right foot. He will need some revascularization to help heal these and will eventually need debridement. He has refused a revascularization in the past and is refusing at this time. I have told him without revascularization he will probably lose his leg. He does not ambulate much. Plan: MRI to rule out osteo, antibiotics, local wound care, eventual debridement and revascularization if possible. Risks and options been fully discussed with the patient but he is somewhat uncooperative at the moment
[2018-10-22] MEDS: BACLOFEN 10 MG TAB PO SCH (20:54)
[2018-10-23] MEDS: DILTIAZEM 30 MG TAB PO SCH ×2 (07:37→12:12)
[2018-10-23 09:07] LABS: PLATELET COUNT 181 10^3/uL (150-400)
[2018-10-23] MEDS: SENNOSIDES/DOCUSATE SODIUM TAB PO SCH (09:59)
[2018-10-23] MEDS: FERROUS SULFATE 325 MG TAB PO SCH ×2 (09:59→23:11)
[2018-10-23] MEDS: TAMSULOSIN HCL 0.4 MG CAP PO SCH (09:59)
[2018-10-23] MEDS: amLODIPine BESYLATE 5 MG TAB PO SCH (09:59)
[2018-10-23] MEDS: SODIUM HYPOCHLORITE (DAKINS 1/4 STR) 473 ML BTL TP SCH ×2 (12:12→23:09)
[2018-10-23] MEDS ORDERED: LR 1,000 ML IV ONE (12:31)
[2018-10-23] MEDS ORDERED: GLUCAGON HCL 1 MG VIAL IVP PRN (12:40)
[2018-10-23] MEDS ORDERED: fentaNYL 100 MCG/2 ML INJ IVP PRN ×2 (12:40→17:53)
[2018-10-23] MEDS ORDERED: MIDAZOLAM 2 MG/2 ML VIAL IVP PRN (12:40)
[2018-10-23] MEDS ORDERED: FLUMAZENIL 0.5 MG/5 ML MDV IVP PRN (12:40)
[2018-10-23] MEDS ORDERED: NALOXONE HCL 0.4 MG/ML INJ IVP PRN ×2 (12:40→17:53)
[2018-10-23] MEDS ORDERED: MEPERIDINE 25 MG/ML SYR IVP PRN (12:40)
[2018-10-23] MEDS ORDERED: ALTEPLASE 2 MG VIAL IVP PRN (12:40)
[2018-10-23] MEDS ORDERED: NS 1,000 ML IV SCH (12:45)
[2018-10-23] MEDS ORDERED: THROMBIN (BOVINE) 20,000 UNIT VIAL TP ONE ×2 (13:58→14:15)
[2018-10-23] MEDS ORDERED: BUPIVACAINE 0.5% 30 ML SDV ONE ×2 (13:58→14:15)
--- NOTE | 2018-10-23 14:02 | SOAPPROG ---
SOAP Progress Note Assessment/Plan: Assessment/Plan: 83 Y M c dementia, afib, AAA 5.6 cm, PAD c significant iliac stenosis, here with ischemic calcaneal ulcer s/p operative debridement. Plan for R femoral cut down for iliac angioplasty today. Risks and options fully discussed. Pt agrees. MDPOA has signed consent. S: c/o pain when moving his legs. Agrees to angioplasty. O: alert, agitated Wound vac to suction over calcaneal ulcer. allevyn protective dressings over shins and underlying skin intact. 10/23/18 14:01 Objective: Vital Signs Temp Pulse Resp BP Pulse Ox 36.8 C 68 18 134/63 H 99 10/23/18 12:33 10/23/18 12:33 10/23/18 12:33 10/23/18 12:33 10/23/18 12:33 Laboratory Results 10/23/18 08:50 10/23/18 08:10 10/22/18 10/23/18 10/24/18 05:59 05:59 05:59 Intake Total 300 300 Output Total 1125 1400 Balance -825 -1100 PT 14.2 SEC (12.0-15.0) 10/20/18 05:00 INR 1.15 (0.83-1.16) 10/20/18 05:00 ICD10 Worksheet Patient Problems: Problems Problem Status Onset Peripheral vascular disease Acute Ulcer of right lower leg Acute Acute kidney injury Acute Atrial flutter Acute Cervical strain Acute DVT (deep venous thrombosis) Acute Dehydration Acute Displaced fracture of right femoral neck Acute Elevated troponin Acute Fever Acute Head injury Acute Hypoxemia Acute Hypoxia Acute Nausea, vomiting, and diarrhea Acute Palliative care encounter Acute Pancreatitis Acute Pneumonia Acute Pulmonary embolus Acute Severe sepsis Acute Toe infection Acute Vomiting Acute chronic disease mgmt/transitional care Acute
[2018-10-23] MEDS ORDERED: IOPAMIDOL (ISOVUE-300) 100 ML BTL ONE ×2 (14:05→18:01)
--- NOTE | 2018-10-23 14:32 | PDANEPAE ---
ANE History of Present Illness RT iliac stent. Ischemic LE wound ANE Past Medical History - Cardiovascular History Hx Hypertension: Yes Hx Arrhythmias: Yes Hx Chest Pain: No Hx Coronary Artery / Peripheral Vascular Disease: Yes Hx CHF / Valvular Disease: No Cardiovascular History Comment: AAA 5.2 cm in 2016 - Pulmonary History Hx COPD: No Hx Asthma/Reactive Airway Disease: No Hx Recent Upper Respiratory Infection: No Hx Oxygen in Use at Home: No Hx Sleep Apnea: No Sleep Apnea Screening Result - Last Documented: Positive Pulmonary History Comment: hypoxia in hospital on 4 LPM with SpO2 94% - Endocrine History Hx Diabetes: Yes Hypothyroid: No Hyperthyroid: No Obesity: mild - Renal History Hx Renal Disorders: Yes - Liver History Hx Hepatic Disorders: No - Neurological & Psychiatric Hx Hx Neurological and Psychiatric Disorders: Yes Neurological / Psychiatric History Comment: dementia - Cancer History Hx Cancer: No - Congenital Disorder History Hx Congenital Disorders: No - Other Health History Other Health History: Poor vision. idiopathic thrombocytopenia - Chronic Pain History Chronic Pain: No ANE Review of Systems Review of Systems: - Exercise capacity METS (RN): 2 METS - Systems Respiratory: Reports: shortness of breath Hematologic/Lymphatic: Reports: anemia, blood clots (DVT) ANE Patient History - Allergies Allergies/Adverse Reactions: Tetracyclines Allergy (Intermediate, Verified 10/07/18 16:21) Vomiting azithromycin Allergy (Unknown, Verified 10/07/18 16:21) Itching nitrofurantoin [From Macrobid] Allergy (Unknown, Verified 10/07/18 16:21) nitrofurantoin macrocrystalline [From Macrobid] Allergy (Unknown, Verified 10/07 16:21) Sulfa (Sulfonamide Antibiotics) Allergy (Unknown, Verified 10/07/18 16:21) - Home Medications Home medications: home medication list seen and reviewed Home Medications: Polyethylene Glycol 3350 [Miralax 17 gm (*)] 17 gm PO DAILY PRN 07/15/18 [Last Taken Unknown] Sennosides/Docusate Sodium [Senna-S Tablet] 1 each PO BID 07/15/18 [Last Taken 10/07/18 am dose only] Tamsulosin HCl [Flomax 0.4 MG (*)] 0.4 mg PO DAILY 07/15/18 [Last Taken 10/06/18 ] Ferrous Sulfate [Ferrous Sulf 325 MG (*)] 325 mg PO BID 09/06/18 [Last Taken am dose only] Magnesium Hydroxide [Milk of Magnesia] 30 ml PO DAILY PRN 09/06/18 [Last Taken Unknown] guaiFENesin [Mucinex 600 MG (*)] 600 mg PO BID 09/06/18 [Last Taken 10/07/18 am dose only] Acetaminophen [Tylenol ES 500 mg (*)] 1,000 mg PO Q8 PRN 10/07/18 [Last Taken ] Apixaban [Eliquis] 5 mg PO BID 10/07/18 [Last Taken 10/07/18 am dose only] Baclofen 5 mg PO HS 10/07/18 [Last Taken 10/06/18] Bisacodyl [Dulcolax] 10 mg NV DAILY PRN 10/07/18 [Last Taken Unknown] Cholecalciferol Vit D3 [Vitamin D3 (*)] 50,000 unit PO TH 10/07/18 [Last Taken 10/01/18] Collagenase [Santyl (*)] 30 alice TP DAILY 10/07/18 [Last Taken 10/07/18] Diltiazem HCl 30 mg PO QID 10/07/18 [Last Taken 10/07/18 two doses] Mupirocin 2% [Bactroban 2% Oint (RX)] 1 alice TP DAILY 10/07/18 [Last Taken ] amLODIPine BESYLATE [Norvasc 5 mg (*)] 5 mg PO DAILY 10/07/18 [Last Taken ] fentaNYL [Duragesic 12 MCG Patch (*)] 12 mcg TD Q72H 10/07/18 [Last Taken ] traMADol [Ultram 50 mg (*)] 50 mg PO QID 10/07/18 [Last Taken 10/07/18 two doses ] - NPO status NPO Status: no food or drink >8 hours NPO Since - Liquids (Date): 10/22/18 NPO Since - Liquids (Time): 23:30 NPO Since - Solids (Date): 10/20/18 NPO Since - Solids (Time): 22:00 - Anes Hx Anes Hx: no prior problems - Smoking Hx Smoking Status: Former smoker Marijuana use: No - Alcohol Use Alcohol Use: Sober - Family Anes Hx Family Anes Hx: none ANE Labs/Vital Signs - Labs Result Diagrams: 10/23/18 08:50 10/23/18 08:10 - Vital Signs Blood Pressure: 134/63 Heart Rate: 68 Respiratory Rate: 18 O2 Sat (%): 99 Height: 180.34 cm Weight: 85.3 kg ANE Physical Exam - Airway Neck exam: decreased ROM Mallampati Score: Class 2 Mouth exam: dentures - Pulmonary Pulmonary: no respiratory distress, no rales or rhonchi - Cardiovascular Cardiovascular: regular rate and rhythym, no murmur, rub, or gallop - ASA Status ASA Status: III ANE Anesthesia Plan Anesthesia Plan: general endotracheal anesthesia
[2018-10-23] MEDS ORDERED: fentaNYL 250 MCG/5 ML INJ ONE (14:56)
[2018-10-23] MEDS ORDERED: PROPOFOL 200 MG/20 ML VIAL ONE (14:57)
[2018-10-23] MEDS ORDERED: ROCURONIUM 50 MG/5 ML VIAL ONE ×2 (15:02→17:21)
[2018-10-23] MEDS ORDERED: CEFAZOLIN 2 GM/DEXTROSE/100 ML BAG IV ONE (15:02)
[2018-10-23] MEDS ORDERED: ceFAZolin 2 GM/DEXTROSE 100 ML IV ONE (15:30)
[2018-10-23] MEDS ORDERED: LIDOCAINE 2% 5 ML SDV ONE (15:42)
--- NOTE | 2018-10-23 17:17 | ASMTCMCOM ---
CM Note CM Note Notes: Pt discussed in rounds and continues to be confused but Velia feels he is more alert today. Pt had an angio-plasy or rt Iliac today. Ria ([phone]) from [facility] was here to see Velia ( GERALDINE) yesterday but she was not here. Ria has attempted to contact Velia several times about Pt's bill and she has not returned her call. I gave Ria's number to Velia today and Velia said she'd call Friday. [facility] is planning on taking the Pt back when he is medically cleared. We will need to send an updated referral. CM available if needs should arise. Plan: Discharge to [facility] when medically cleared Date Signed: 10/23/2018 05:15 PM Electronically Signed By:Marcella North
[2018-10-23] MEDS ORDERED: PROTAMINE SULFATE 50 MG/5 ML VIAL IVP ONE (17:22)
--- NOTE | 2018-10-23 17:27 | PDRADPN ---
Radiology Procedure Note Date of Procedure: 10/23/18 Radiologist: Debbie Srinivasan Anesthesia: GET(General Endotracheal) Pre-op Diagnosis: RT ILIAC CRITICAL STENOSIS Post-op Diagnosis: SAME Indication: THREATENED LIMB ISCHEMIA Procedure: STENTGRAFT PLACEMENT Finding(s): POST DIALATED TO 8MM WITH GOOD ANGIOGRAPHIC RESULT. NO BLEEDING. Inf/Abcess present in the surg proc area at time of surgery?: No
[2018-10-23] MEDS ORDERED: SUGAMMADEX SODIUM 200 MG/2 ML VIAL IVP ONE (17:30)
--- NOTE | 2018-10-23 17:44 | HOSPPROG ---
Hospitalist Progress Note Assessment/Plan: 83-year-old with chronic vascular ulcer [facility] after his RLE calcaneal wound appeared worse. He has refused amputation and now planning on revascularization. 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 recommend frequent re-direction. if needed, consider haldol PRN if danger to self/others #Atrial fibrillation - holding eliquis with intervention. will plan to resume once safe from procedural aspect #BPH: Continue flomax #Iron deficiency anemia VTE ppx: holding LMWH with procedure Code: DNR, friend Velia is MDPOA Dispo: Remain inpatient, currently in ICU for post-op monitoring Subjective: He is agitated after the procedure this afternoon. Not very happy with talking to anyone. Refuses to answer questions appropriately. Objective: Vital Signs Temp Pulse Resp BP Pulse Ox 36.8 C 68 18 134/63 H 99 10/23/18 12:33 10/23/18 16:33 10/23/18 16:33 10/23/18 16:33 10/23/18 16:33 Laboratory Results 10/23/18 08:50 10/23/18 08:10 10/22/18 10/23/18 10/24/18 05:59 05:59 05:59 Intake Total 300 300 Output Total 1125 1400 Balance -825 -1100 PT 14.2 SEC (12.0-15.0) 10/20/18 05:00 INR 1.15 (0.83-1.16) 10/20/18 05:00 - Physical Exam Constitutional: no apparent distress Eyes: PERRL Ears, Nose, Mouth, Throat: moist mucous membranes, hearing normal, ears appear normal, no oral mucosal ulcers Cardiovascular: regular rate and rhythym, no murmur, rub, or gallop Respiratory: no respiratory distress, no rales or rhonchi, clear to auscultation Gastrointestinal: normoactive bowel sounds, soft, non-tender abdomen, no palpable masses Genitourinary: melissa in urethra Skin: other (wound vac on right foot, gauze over right inguinal region without blood) Neurologic: other (alert, not oriented) Psychiatric: encephalopathic ICD10 Worksheet Patient Problems: Problems Problem Status Onset Peripheral vascular disease Acute Ulcer of right lower leg Acute Acute kidney injury Acute Atrial flutter Acute Cervical strain Acute DVT (deep venous thrombosis) Acute Dehydration Acute Displaced fracture of right femoral neck Acute Elevated troponin Acute Fever Acute Head injury Acute Hypoxemia Acute Hypoxia Acute Nausea, vomiting, and diarrhea Acute Palliative care encounter Acute Pancreatitis Acute Pneumonia Acute Pulmonary embolus Acute Severe sepsis Acute Toe infection Acute Vomiting Acute chronic disease mgmt/transitional care Acute
[2018-10-23] MEDS ORDERED: ONDANSETRON 4 MG/2 ML VIAL IVP PRN (17:53)
[2018-10-23] MEDS ORDERED: HYDROmorphONE/DILAUDID 2 MG/ML INJ IVP PRN (17:53)
--- NOTE | 2018-10-23 17:54 | POSTANESTH ---
Post Anesthetic Evaluation Cardiovascular Status: Similar to Pre-Op Cond Respiratory Status: Similar to Pre-op Cond. Level of Consciousness/Mental Status: Other, See Comment Pain Control: Adequate, Prn Tx Ordered Nausea/Vomiting Control: Adequate, Prn Tx Ordered Complications Possibly Related to Anesthesia: None Noted (Dementia as pre op)
--- NOTE | 2018-10-23 18:09 | POSTOPPROG ---
Post Op Note Date of Operation: 10/23/18 Surgeon: Refugio Dietrich Hydrotel Operator: daniela thompson Anesthesiologist: Bridger Anesthesia: GET(General Endotracheal) Pre-op Diagnosis: Iliac artery stenosis and severe peripheral vascular disease Post-op Diagnosis: Same Indication: Limb salvage Procedure: 1. Femoral artery exposures for endovascular repair 2. Repair of common fe Findings: Soft common femoral artery and successful S stent angioplasty of the iliac Inf/Abcess present in the surg proc area at time of surgery?: No Depth: Deep Incisional (Fascial) EBL: 50-100 Complications: None
[2018-10-23] MEDS: NS W/ 20 KCl/L 1,000 ML IV SCH (21:08)
[2018-10-24] MEDS: SENNOSIDES/DOCUSATE SODIUM TAB PO SCH ×3 (00:02→23:15)
[2018-10-24] MEDS: BACLOFEN 10 MG TAB PO SCH ×2 (00:02→23:15)
[2018-10-24] MEDS: DILTIAZEM 30 MG TAB PO SCH ×5 (03:30→23:15)
--- NOTE | 2018-10-24 05:22 | GOP ---
[f rep st] OPERATIVE REPORT DATE OF OPERATION: 10/23/2018 SURGEON: Refugio Dietrich MD LOCK TENDER: Chayito Arndt NP ANESTHESIOLOGIST: Dr. Jeanne Sparks PREOPERATIVE DIAGNOSIS: Severe peripheral vascular disease with gangrenous changes of his right foot. POSTOPERATIVE DIAGNOSIS: Severe peripheral vascular disease with gangrenous changes of his right foot. PROCEDURE PERFORMED: Right femoral artery exposure for endovascular stent placement in the iliac artery. FINDINGS: SOFT COMMON FEMORAL ARTERY WITH IMPROVED FLOW AFTER ANGIOPLASTY DESCRIPTION OF PROCEDURE: The patient was taken to the operating room where he received satisfactory general endotracheal anesthesia by Dr. Sparks, was placed in the supine position, prepped and draped in the usual sterile fashion. A longitudinal incision was made over the right femoral artery and dissection extended through the subcutaneous tissue and down to the inguinal ligament. Dissection extended inferiorly and more deeply until the common femoral, profunda femoris and superficial femoral arteries were all dissected free and controlled with vessel loops as well as some collateral arterial branches. After adequate exposure, the case was turned over to Dr. Srinivasan for endovascular repair. When she was completed with that part, the case was turned back to nd. The introducer sheath was carefully removed. All vessels were flushed. There was adequate inflow and adequate backflow. The arteriotomy was then debrided and repaired with running 5-0 Prolene suture. Flow was re-established 1st through the profunda femoris and then back down the superficial femoral artery. Suture line appeared to be hemostatic. The wound was then closed in layers using 2-0 Vicryl for the fascia, 3-0 Vicryl for the subcu. All layers were infiltrated with 0.5% Marcaine and some topical thrombin was instilled as well. The skin was then closed with skin joanne and dressed. He tolerated the procedure well, was taken to the recovery room in good condition. /[id number]/MODL MTDD
[2018-10-24 06:06] LABS: PLATELET COUNT 187 10^3/uL (150-400)
[2018-10-24] MEDS: SODIUM HYPOCHLORITE (DAKINS 1/4 STR) 473 ML BTL TP SCH (08:24)
--- NOTE | 2018-10-24 08:47 | HOSPPROG ---
Hospitalist Progress Note Assessment/Plan: 83-year-old with chronic vascular ulcer [facility] after his RLE calcaneal wound appeared worse. He has refused amputation and now planning on revascularization. 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 if worsening, will need to re- consider amputation (has been refusing) #PVD: Has significant right iliac stent stenosis, focally occluded left prox EIA - angioplasty/stent as above - not on antiplatelet or statin #AAA: 5.6cm - no plan for repair or stent/grafting at present #Acute metabolic encephalopathy: Has dementia but not at baseline - not decisional today #Atrial fibrillation - holding eliquis with intervention, resume when ok from surgery/IR #BPH: Continue flomax #Iron deficiency anemia Code: DNR, friend Velia is MDPOA Dispo: Remain inpatient. Stable to transfer from SDU to M/S today. Subjective: Per RN, very unpleasant overnight. Not allowing any wound care or taking medications. He is angry with me and cussing. Objective: Vital Signs Temp Pulse Resp BP Pulse Ox 36.5 C 66 16 99/57 L 97 10/23/18 17:46 10/24/18 06:01 10/24/18 04:00 10/24/18 06:01 10/24/18 04:00 Laboratory Results 10/24/18 05:48 10/23/18 08:10 10/23/18 10/24/18 10/25/18 05:59 05:59 06:59 Intake Total 300 1593 Output Total 1400 1320 Balance -1100 273 PT 14.2 SEC (12.0-15.0) 10/20/18 05:00 INR 1.15 (0.83-1.16) 10/20/18 05:00 - Physical Exam Constitutional: no apparent distress Eyes: PERRL Ears, Nose, Mouth, Throat: moist mucous membranes Cardiovascular: irregularly irregular, No edema Respiratory: no respiratory distress, No expiratory wheeze Gastrointestinal: normoactive bowel sounds, soft, non-tender abdomen, no palpable masses Genitourinary: melissa in urethra Skin: other (gauze over right groin, no soilage) Musculoskeletal: generalized weakness Neurologic: other (arousable, not oriented) Psychiatric: encephalopathic ICD10 Worksheet Patient Problems: Problems Problem Status Onset Peripheral vascular disease Acute Ulcer of right lower leg Acute Acute kidney injury Acute Atrial flutter Acute Cervical strain Acute DVT (deep venous thrombosis) Acute Dehydration Acute Displaced fracture of right femoral neck Acute Elevated troponin Acute Fever Acute Head injury Acute Hypoxemia Acute Hypoxia Acute Nausea, vomiting, and diarrhea Acute Palliative care encounter Acute Pancreatitis Acute Pneumonia Acute Pulmonary embolus Acute Severe sepsis Acute Toe infection Acute Vomiting Acute chronic disease mgmt/transitional care Acute
--- NOTE | 2018-10-24 09:30 | SOAPPROG ---
SOAP Progress Note Assessment/Plan: Assessment: Assessment/Plan: 83 male with severe posterior calcaneal full thickness pressure sore s/p cut down and stenting Okay to transfer to floor Hope improved blood flow with assist with wound healing S: Per report, patient was inappropriate verbally this am. Dressing recently changed on foot O: Calm lying in bed Dressing on leg cdi No increased wob chronic afib Plan: 10/10/18 10:57 10/10/18 11:06 10/10/18 11:07 10/10/18 13:37 10/24/18 09:28 Objective: Vital Signs Temp Pulse Resp BP Pulse Ox 36.5 C 68 19 107/59 L 97 10/23/18 17:46 10/24/18 08:00 10/24/18 08:00 10/24/18 08:00 10/24/18 08:00 Laboratory Results 10/24/18 05:48 10/23/18 08:10 10/23/18 10/24/18 10/25/18 05:59 05:59 06:59 Intake Total 300 1593 Output Total 1400 1320 Balance -1100 273 PT 14.2 SEC (12.0-15.0) 10/20/18 05:00 INR 1.15 (0.83-1.16) 10/20/18 05:00 ICD10 Worksheet Patient Problems: Problems Problem Status Onset Peripheral vascular disease Acute Ulcer of right lower leg Acute Acute kidney injury Acute Atrial flutter Acute Cervical strain Acute DVT (deep venous thrombosis) Acute Dehydration Acute Displaced fracture of right femoral neck Acute Elevated troponin Acute Fever Acute Head injury Acute Hypoxemia Acute Hypoxia Acute Nausea, vomiting, and diarrhea Acute Palliative care encounter Acute Pancreatitis Acute Pneumonia Acute Pulmonary embolus Acute Severe sepsis Acute Toe infection Acute Vomiting Acute chronic disease mgmt/transitional care Acute
[2018-10-24] MEDS: amLODIPine BESYLATE 5 MG TAB PO SCH (10:34)
[2018-10-24] MEDS: NS W/ 20 KCl/L 1,000 ML IV SCH (10:35)
[2018-10-24] MEDS: traMADol 50 MG TAB PO PRN ×2 (10:35→15:14)
[2018-10-24] MEDS: TAMSULOSIN HCL 0.4 MG CAP PO SCH (11:54)
[2018-10-24] MEDS: FERROUS SULFATE 325 MG TAB PO SCH (11:55)
[2018-10-24] MEDS: ENOXAPARIN 100 MG/ML SYR SC SCH (12:59)
[2018-10-24] MEDS ORDERED: CEPACOL LOZENGE PO PRN (14:11)
[2018-10-24] MEDS: HYDROmorphONE/DILAUDID 1 MG/ML INJ IVP PRN ×2 (16:57→21:08)
[2018-10-24] MEDS ORDERED: FERROUS SULFATE 300 MG/5 ML UD CUP PO SCH (21:00)
[2018-10-25] MEDS: SODIUM HYPOCHLORITE (DAKINS 1/4 STR) 473 ML BTL TP SCH ×2 (00:10→12:59)
[2018-10-25] MEDS: ENOXAPARIN 100 MG/ML SYR SC SCH ×2 (00:11→12:58)
[2018-10-25] MEDS: HYDROmorphONE/DILAUDID 1 MG/ML INJ IVP PRN ×2 (04:55→12:58)
[2018-10-25] MEDS: DILTIAZEM 30 MG TAB PO SCH ×4 (05:07→21:05)
--- NOTE | 2018-10-25 07:59 | SOAPPROG ---
SOAP Progress Note Assessment/Plan: Assessment: Assessment/Plan: 83 male with severe posterior calcaneal full thickness pressure sore s/p cut down and stenting Hope improved blood flow with assist with wound healing May need additional debridement vs amputation S: Sleeping - I did not awaken him O: Sleeping soundly Incision in groin cdi Plan: 10/10/18 10:57 10/10/18 11:06 10/10/18 11:07 10/10/18 13:37 10/24/18 09:28 10/25/18 07:57 Objective: Vital Signs Temp Pulse Resp BP Pulse Ox 37.2 C 67 14 111/55 L 90 L 10/25/18 04:29 10/25/18 04:29 10/25/18 04:29 10/25/18 04:29 10/25/18 04:29 Laboratory Results 10/24/18 05:48 10/23/18 08:10 10/24/18 10/25/18 10/26/18 04:59 05:59 05:59 Intake Total Output Total Balance PT 14.2 SEC (12.0-15.0) 10/20/18 05:00 INR 1.15 (0.83-1.16) 10/20/18 05:00 ICD10 Worksheet Patient Problems: Problems Problem Status Onset Peripheral vascular disease Acute Ulcer of right lower leg Acute Acute kidney injury Acute Atrial flutter Acute Cervical strain Acute DVT (deep venous thrombosis) Acute Dehydration Acute Displaced fracture of right femoral neck Acute Elevated troponin Acute Fever Acute Head injury Acute Hypoxemia Acute Hypoxia Acute Nausea, vomiting, and diarrhea Acute Palliative care encounter Acute Pancreatitis Acute Pneumonia Acute Pulmonary embolus Acute Severe sepsis Acute Toe infection Acute Vomiting Acute chronic disease mgmt/transitional care Acute
--- NOTE | 2018-10-25 08:46 | HOSPPROG ---
Hospitalist Progress Note Assessment/Plan: 83-year-old with chronic vascular ulcer [facility] after his RLE calcaneal wound appeared worse. He has refused amputation and now planning on revascularization. 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 will see how revascularization helps wound. if worsening , need to re-consider additional debridement - restart PT/OT tomorrow #PVD: Has significant right iliac stent stenosis, focally occluded left prox EIA - angioplasty/stent as above - not on antiplatelet or statin #AAA: 5.6cm - no plan for repair or stent/grafting at present #Acute metabolic encephalopathy: Much improved today, likely close to baseline. Has dementia. - appears decisional today (at least this morning) #Atrial fibrillation - holding eliquis with intervention, resume when ok from surgery/IR #BPH: Continue flomax #Iron deficiency anemia Code: DNR, friend Velia is MDPOA Dispo: Remain inpatient Subjective: Very pleasant this morning, which is a change from prior days. No complaints. No right groin pain. no fevers Objective: Vital Signs Temp Pulse Resp BP Pulse Ox 37.2 C 67 14 111/55 L 90 L 10/25/18 04:29 10/25/18 04:29 10/25/18 04:29 10/25/18 04:29 10/25/18 04:29 Laboratory Results 10/24/18 05:48 10/23/18 08:10 10/24/18 10/25/18 10/26/18 04:59 05:59 05:59 Intake Total Output Total Balance PT 14.2 SEC (12.0-15.0) 10/20/18 05:00 INR 1.15 (0.83-1.16) 10/20/18 05:00 - Physical Exam Constitutional: no apparent distress Eyes: PERRL, anicteric sclera Ears, Nose, Mouth, Throat: moist mucous membranes Cardiovascular: no murmur, rub, or gallop, irregularly irregular Respiratory: no respiratory distress, no rales or rhonchi, clear to auscultation Gastrointestinal: normoactive bowel sounds, soft, non-tender abdomen, no palpable masses Genitourinary: no bladder fullness, no bladder tenderness, no renal bruits Skin: other (right foot/ankle wrapped, right groin incision c/d/i) Musculoskeletal: other (wiggles toes on right foot) Neurologic: AAOx3 Psychiatric: interacting appropriately ICD10 Worksheet Patient Problems: Problems Problem Status Onset Peripheral vascular disease Acute Ulcer of right lower leg Acute Acute kidney injury Acute Atrial flutter Acute Cervical strain Acute DVT (deep venous thrombosis) Acute Dehydration Acute Displaced fracture of right femoral neck Acute Elevated troponin Acute Fever Acute Head injury Acute Hypoxemia Acute Hypoxia Acute Nausea, vomiting, and diarrhea Acute Palliative care encounter Acute Pancreatitis Acute Pneumonia Acute Pulmonary embolus Acute Severe sepsis Acute Toe infection Acute Vomiting Acute chronic disease mgmt/transitional care Acute
[2018-10-25] MEDS: amLODIPine BESYLATE 5 MG TAB PO SCH (10:20)
[2018-10-25] MEDS: SENNOSIDES/DOCUSATE SODIUM TAB PO SCH ×2 (10:21→21:04)
--- NOTE | 2018-10-25 17:12 | ASMTCMCOM ---
CM Note CM Note Notes: CM presented to patient room, patient sleeping. CM discussed case with DREA Benites, plan right now is to continue to monitoring wound. CM to follow. Discharge Plan: Return to [facility] Date Signed: 10/25/2018 05:12 PM Electronically Signed By:Tere Clifton
[2018-10-25] MEDS: BACLOFEN 10 MG TAB PO SCH (21:04)
[2018-10-26] MEDS: ENOXAPARIN 100 MG/ML SYR SC SCH (01:27)
[2018-10-26] MEDS: traMADol 50 MG TAB PO PRN (02:22)
[2018-10-26] MEDS: SODIUM HYPOCHLORITE (DAKINS 1/4 STR) 473 ML BTL TP SCH ×3 (03:05→20:39)
[2018-10-26] MEDS: DILTIAZEM 30 MG TAB PO SCH ×5 (05:49→20:37)
[2018-10-26] MEDS ORDERED: ceFAZolin 2 GM/DEXTROSE 100 ML IV ONE (08:49)
--- NOTE | 2018-10-26 09:57 | SOAPPROG ---
SOAP Progress Note Assessment/Plan: Assessment/Plan: 83 Y M c dementia, afib, AAA 5.6 cm, PAD c significant iliac stenosis, here with ischemic calcaneal ulcer S/p operative debridement S/p R femoral cutdown for R iliac artery stenting POD #3 Pt has good pedal pulses on doppler today. R calcaneal pressure ulcer appears to have healthy, pink granulation tissues around the edges. Black eschar remains over center of wound. Plan for OR today for wound debridement. Consent has been obtained from both pt and Velia JAMES. NPO. Hold Lovenox. S: Rather alert today. Still having pain. Agrees to surgical debridement. O: Alert Afebrile, VSS Irregularly irregular No increased WOB Abdomen soft RLE: + pedal pulses. Calcaneal wound appears to have healthy granulation tissue around edges with black eschar in center. Bone exposed. LLE: No wounds, + pedal pulses. 10/26/18 09:51 Objective: Vital Signs Temp Pulse Resp BP Pulse Ox 36.4 C 67 16 111/73 99 10/26/18 07:39 10/26/18 07:39 10/26/18 07:39 10/26/18 07:39 10/26/18 07:39 Laboratory Results 10/24/18 05:48 10/23/18 08:10 10/25/18 10/26/18 10/27/18 05:59 05:59 05:59 Intake Total 825 Output Total 1375 Balance -550 PT 14.2 SEC (12.0-15.0) 10/20/18 05:00 INR 1.15 (0.83-1.16) 10/20/18 05:00 ICD10 Worksheet Patient Problems: Problems Problem Status Onset Peripheral vascular disease Acute Ulcer of right lower leg Acute Acute kidney injury Acute Atrial flutter Acute Cervical strain Acute DVT (deep venous thrombosis) Acute Dehydration Acute Displaced fracture of right femoral neck Acute Elevated troponin Acute Fever Acute Head injury Acute Hypoxemia Acute Hypoxia Acute Nausea, vomiting, and diarrhea Acute Palliative care encounter Acute Pancreatitis Acute Pneumonia Acute Pulmonary embolus Acute Severe sepsis Acute Toe infection Acute Vomiting Acute chronic disease mgmt/transitional care Acute
[2018-10-26] MEDS ORDERED: BUPIVACAINE 0.5% 30 ML SDV ONE (10:48)
--- NOTE | 2018-10-26 11:43 | PDANEPAE ---
ANE Past Medical History - Cardiovascular History Hx Hypertension: Yes Hx Arrhythmias: Yes Hx Chest Pain: No Hx Coronary Artery / Peripheral Vascular Disease: Yes Hx CHF / Valvular Disease: No Cardiovascular History Comment: AAA 5.2 cm in 2016 - Pulmonary History Hx COPD: No Hx Asthma/Reactive Airway Disease: No Hx Recent Upper Respiratory Infection: No Hx Oxygen in Use at Home: No Hx Sleep Apnea: No Sleep Apnea Screening Result - Last Documented: Positive Pulmonary History Comment: hypoxia in hospital on 4 LPM with SpO2 94% - Endocrine History Hx Diabetes: Yes Hypothyroid: No Hyperthyroid: No Obesity: no - Renal History Hx Renal Disorders: Yes - Liver History Hx Hepatic Disorders: No - Neurological & Psychiatric Hx Hx Neurological and Psychiatric Disorders: Yes Neurological / Psychiatric History Comment: dementia - Cancer History Hx Cancer: No - Congenital Disorder History Hx Congenital Disorders: No - GI History GERD: no - Other Health History Other Health History: Poor vision. idiopathic thrombocytopenia - Chronic Pain History Chronic Pain: No ANE Review of Systems Review of Systems: - Exercise capacity Exercise capacity: <4 METS METS (RN): 2 METS ANE Patient History - Allergies Allergies/Adverse Reactions: Tetracyclines Allergy (Intermediate, Verified 10/07/18 16:21) Vomiting azithromycin Allergy (Unknown, Verified 10/07/18 16:21) Itching nitrofurantoin [From Macrobid] Allergy (Unknown, Verified 10/07/18 16:21) nitrofurantoin macrocrystalline [From Macrobid] Allergy (Unknown, Verified 10/07 16:21) Sulfa (Sulfonamide Antibiotics) Allergy (Unknown, Verified 10/07/18 16:21) - Home Medications Home Medications: Polyethylene Glycol 3350 [Miralax 17 gm (*)] 17 gm PO DAILY PRN 07/15/18 [Last Taken Unknown] Sennosides/Docusate Sodium [Senna-S Tablet] 1 each PO BID 07/15/18 [Last Taken 10/07/18 am dose only] Tamsulosin HCl [Flomax 0.4 MG (*)] 0.4 mg PO DAILY 07/15/18 [Last Taken 10/06/18 ] Ferrous Sulfate [Ferrous Sulf 325 MG (*)] 325 mg PO BID 09/06/18 [Last Taken am dose only] Magnesium Hydroxide [Milk of Magnesia] 30 ml PO DAILY PRN 09/06/18 [Last Taken Unknown] guaiFENesin [Mucinex 600 MG (*)] 600 mg PO BID 09/06/18 [Last Taken 10/07/18 am dose only] Acetaminophen [Tylenol ES 500 mg (*)] 1,000 mg PO Q8 PRN 10/07/18 [Last Taken ] Apixaban [Eliquis] 5 mg PO BID 10/07/18 [Last Taken 10/07/18 am dose only] Baclofen 5 mg PO HS 10/07/18 [Last Taken 10/06/18] Bisacodyl [Dulcolax] 10 mg [place] DAILY PRN 10/07/18 [Last Taken Unknown] Cholecalciferol Vit D3 [Vitamin D3 (*)] 50,000 unit PO TH 10/07/18 [Last Taken 10/01/18] Collagenase [Santyl (*)] 30 alice TP DAILY 10/07/18 [Last Taken 10/07/18] Diltiazem HCl 30 mg PO QID 10/07/18 [Last Taken 10/07/18 two doses] Mupirocin 2% [Bactroban 2% Oint (RX)] 1 alice TP DAILY 10/07/18 [Last Taken ] amLODIPine BESYLATE [Norvasc 5 mg (*)] 5 mg PO DAILY 10/07/18 [Last Taken ] fentaNYL [Duragesic 12 MCG Patch (*)] 12 mcg TD Q72H 10/07/18 [Last Taken ] traMADol [Ultram 50 mg (*)] 50 mg PO QID 10/07/18 [Last Taken 10/07/18 two doses ] - NPO status NPO Since - Liquids (Date): 10/22/18 NPO Since - Liquids (Time): 23:30 NPO Since - Solids (Date): 10/20/18 NPO Since - Solids (Time): 22:00 - Anes Hx Anes Hx: no prior problems - Smoking Hx Smoking Status: Former smoker - Alcohol Use Alcohol Use: Sober - Family Anes Hx Family Anes Hx: neg - N/A ANE Labs/Vital Signs - Labs Result Diagrams: 10/24/18 05:48 10/23/18 08:10 - Vital Signs Blood Pressure: 132/63 Heart Rate: 65 Respiratory Rate: 16 O2 Sat (%): 98 Height: 180.34 cm Weight: 85.3 kg ANE Physical Exam - Airway Neck exam: decreased ROM Mallampati Score: Unable to assesss Mouth exam: dentures - Pulmonary Pulmonary: no respiratory distress, no rales or rhonchi, clear to auscultation, reduced air movement - Cardiovascular Cardiovascular: regular rate and rhythym, no murmur, rub, or gallop - ASA Status ASA Status: III ANE Anesthesia Plan Anesthesia Plan: GA w LMA Total IV Anesthesia: No
[2018-10-26] MEDS ORDERED: CEFAZOLIN 2 GM/DEXTROSE/100 ML BAG IV ONE (11:46)
[2018-10-26] MEDS ORDERED: HYDROmorphONE/DILAUDID 1 MG/ML INJ IVP PRN (11:50)
[2018-10-26] MEDS ORDERED: LR 1,000 ML IV ONE (11:54)
[2018-10-26] MEDS ORDERED: fentaNYL 100 MCG/2 ML INJ ONE ×2 (12:21→12:51)
[2018-10-26] MEDS ORDERED: PROPOFOL 200 MG/20 ML VIAL ONE (12:21)
[2018-10-26] MEDS ORDERED: LIDOCAINE 2% 5 ML SDV ONE (12:23)
[2018-10-26] MEDS ORDERED: PHENYLEPHRINE HCL 100 MCG/ML SYR ONE (12:28)
[2018-10-26] MEDS ORDERED: fentaNYL 100 MCG/2 ML INJ IVP PRN (13:09)
[2018-10-26] MEDS ORDERED: LR 500 ML IV PRN (13:09)
[2018-10-26] MEDS ORDERED: HYDROCODONE/APAP 5/325 TAB PO PRN (13:09)
[2018-10-26] MEDS ORDERED: oxyCODONE IR 5 MG TAB PO PRN (13:09)
[2018-10-26] MEDS ORDERED: NALOXONE HCL 0.4 MG/ML INJ IVP PRN (13:09)
[2018-10-26] MEDS ORDERED: ACETAMINOPHEN 500 MG TAB PO PRN (13:09)
[2018-10-26] MEDS ORDERED: PHENYLEPHRINE HCL 100 MCG/ML SYR IVP PRN (13:09)
[2018-10-26] MEDS ORDERED: ONDANSETRON 4 MG/2 ML VIAL IVP PRN (13:09)
--- NOTE | 2018-10-26 14:03 | HOSPPROG ---
Hospitalist Progress Note Assessment/Plan: 83-year-old with chronic vascular ulcer admitted [facility] after his RLE calcaneal wound appeared worse. He has refused amputation and now planning on revascularization. 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 Has dementia. - not decisional today on my evaluation #Atrial fibrillation - holding eliquis with intervention, resume when ok from surgery/IR #BPH: Continue flomax #Iron deficiency anemia #Right nasal bridge lesion: from wearing glasses - local wound care Code: DNR, friend Velia is MDPOA Dispo: Remain inpatient Subjective: Had debridement with wound vac placement today. Doing well after procedure. No pain or new complaints. Objective: Vital Signs Temp Pulse Resp BP Pulse Ox 36.5 C 67 12 119/63 95 10/26/18 13:39 10/26/18 13:39 10/26/18 13:51 10/26/18 13:51 10/26/18 13:51 Laboratory Results 10/24/18 05:48 10/23/18 08:10 10/25/18 10/26/18 10/27/18 05:59 05:59 05:59 Intake Total 825 700 Output Total 1375 1155 Balance -550 -455 PT 14.2 SEC (12.0-15.0) 10/20/18 05:00 INR 1.15 (0.83-1.16) 10/20/18 05:00 - Physical Exam Constitutional: no apparent distress, chronically ill appearing Eyes: PERRL Ears, Nose, Mouth, Throat: moist mucous membranes Cardiovascular: regular rate and rhythym, irregularly irregular, No edema Respiratory: no respiratory distress Gastrointestinal: normoactive bowel sounds, soft, non-tender abdomen, no palpable masses Genitourinary: melissa in urethra Skin: other (right foot with wound vac in place) Musculoskeletal: full muscle strength Neurologic: other (alert, not fully oriented) Psychiatric: encephalopathic ICD10 Worksheet Patient Problems: Problems Problem Status Onset Peripheral vascular disease Acute Ulcer of right lower leg Acute Acute kidney injury Acute Atrial flutter Acute Cervical strain Acute DVT (deep venous thrombosis) Acute Dehydration Acute Displaced fracture of right femoral neck Acute Elevated troponin Acute Fever Acute Head injury Acute Hypoxemia Acute Hypoxia Acute Nausea, vomiting, and diarrhea Acute Palliative care encounter Acute Pancreatitis Acute Pneumonia Acute Pulmonary embolus Acute Severe sepsis Acute Toe infection Acute Vomiting Acute chronic disease mgmt/transitional care Acute
--- NOTE | 2018-10-26 14:08 | POSTANESTH ---
Post Anesthetic Evaluation Cardiovascular Status: Similar to Pre-Op Cond Respiratory Status: Similar to Pre-op Cond. Level of Consciousness/Mental Status: Can Participate in Eval Pain Control: Adequate, Prn Tx Ordered Nausea/Vomiting Control: Adequate, Prn Tx Ordered Complications Possibly Related to Anesthesia: None Noted
[2018-10-26] MEDS: ACETAMINOPHEN 325 MG TAB PO PRN (15:03)
[2018-10-26] MEDS: amLODIPine BESYLATE 5 MG TAB PO SCH (15:04)
[2018-10-26] MEDS: SENNOSIDES/DOCUSATE SODIUM TAB PO SCH ×2 (15:04→20:37)
--- NOTE | 2018-10-26 15:45 | POSTOPPROG ---
Post Op Note Date of Operation: 10/26/18 Surgeon: Refugio Dietrich Anesthesiologist: BRAYAN Anesthesia: GET(General Endotracheal) Pre-op Diagnosis: HEEL ULCERATION Post-op Diagnosis: SAME PLUS OSTEOMYELITIS Indication: NONHEALING WOUND Procedure: EXCISIONAL DEBRIDEMENT AND SAUCERIZATION OF THE CALCANEUS Findings: NECROTIC ESCHAR WITH THE SOFT ON NECROTIC BONE Inf/Abcess present in the surg proc area at time of surgery?: Yes Depth: Deep Incisional (Fascial) EBL: Minimal Complications: NONE Bowel Protocol: N/A Clean Closure Performed: N/A Drains: Wound Vac Specimen(s): BONE BIOPSY
--- NOTE | 2018-10-26 19:37 | GOP ---
[f rep st] OPERATIVE REPORT DATE OF OPERATION: 10/26/2018 SURGEON: Refugio Dietrich MD PREOPERATIVE DIAGNOSIS: Peripheral vascular disease and pressure necrosis of the left calcaneal area. POSTOPERATIVE DIAGNOSIS: Peripheral vascular disease and pressure necrosis of the left calcaneal area, plus osteomyelitis of the calcaneus. PROCEDURE PERFORMED: EXCISIONAL DEBRIDEMENT AND SAUCERIZATION OF RIGHT CALCANEUS FINDINGS: Patient was found to have some necrotic eschar over the calcaneus. He also had a soft ulceration into the posterior aspect of the calcaneal bone which appeared to be infected bone. ESTIMATED BLOOD LOSS: Negligible. DESCRIPTION OF PROCEDURE: The patient was taken to the operating room where he received a satisfactory general laryngeal mask anesthesia by Dr. Torres. He was prepped and draped in the usual sterile fashion in the supine position. His right leg was elevated. Sharp excision was done of the black eschar, which was carried down to the fascia with the bone using a rongeur. Any necrotic fascia was removed, and there was an area of exposed bone. This was saucerized out with a curette back to good hard healing bone. Hemostasis was obtained. The wound was covered with a wound VAC. The area was then dressed with a wound VAC, and wound was infiltrated with 0.5% Marcaine. He tolerated the procedure well. There were no complications. He was taken to the recovery room in good condition. /[id number]/MODL MTDD
[2018-10-26] MEDS: BACLOFEN 10 MG TAB PO SCH (20:37)
[2018-10-27] MEDS: ENOXAPARIN 100 MG/ML SYR SC SCH ×2 (00:21→14:53)
[2018-10-27] MEDS: DILTIAZEM 30 MG TAB PO SCH ×4 (05:56→20:29)
[2018-10-27] MEDS: SODIUM HYPOCHLORITE (DAKINS 1/4 STR) 473 ML BTL TP SCH ×2 (09:11→19:54)
[2018-10-27] MEDS: amLODIPine BESYLATE 5 MG TAB PO SCH (09:36)
[2018-10-27] MEDS: SENNOSIDES/DOCUSATE SODIUM TAB PO SCH ×2 (09:36→19:54)
--- NOTE | 2018-10-27 10:29 | SOAPPROG ---
SOAP Progress Note Assessment/Plan: Assessment/Plan: 83 Y M c dementia, afib, AAA 5.6 cm, PAD c significant iliac stenosis, here with ischemic calcaneal ulcer s/p operative debridement 10/11, s/p R femoral a. cutdown with placement of iliac stent 10/23, debridement with saucerization of bone 10/26. Bone grossly suspicious for osteomyelitis. Wound vac restarted at surgery yesterday. Now with better blood supply after iliac stent--attempt to heal wound. Still, given surgical findings, patient's lack of ambulation, and knee contracture, may eventually end up with BKA. S: comfortable O: alert, but some confusion vac to suction 10/27/18 10:26 Objective: Vital Signs Temp Pulse Resp BP Pulse Ox 36.9 C 67 18 123/63 H 90 L 10/27/18 08:00 10/27/18 08:00 10/27/18 08:00 10/27/18 09:36 10/27/18 08:00 Microbiology 10/26/18 13:02 Gram Stain - Final Foot - Tissue Laboratory Results 10/24/18 05:48 10/23/18 08:10 10/26/18 10/27/18 10/28/18 05:59 05:59 05:59 Intake Total 825 1200 Output Total 1375 2255 1000 Balance -550 -1055 -1000 PT 14.2 SEC (12.0-15.0) 10/20/18 05:00 INR 1.15 (0.83-1.16) 10/20/18 05:00 ICD10 Worksheet Patient Problems: Problems Problem Status Onset Peripheral vascular disease Acute Ulcer of right lower leg Acute Acute kidney injury Acute Atrial flutter Acute Cervical strain Acute DVT (deep venous thrombosis) Acute Dehydration Acute Displaced fracture of right femoral neck Acute Elevated troponin Acute Fever Acute Head injury Acute Hypoxemia Acute Hypoxia Acute Nausea, vomiting, and diarrhea Acute Palliative care encounter Acute Pancreatitis Acute Pneumonia Acute Pulmonary embolus Acute Severe sepsis Acute Toe infection Acute Vomiting Acute chronic disease mgmt/transitional care Acute
--- NOTE | 2018-10-27 13:24 | HOSPPROG ---
Hospitalist Progress Note Assessment/Plan: 83-year-old M with dementia, PVD, chronic vascular ulcer [facility] after his RLE calcaneal wound appeared worse. He has refused amputation. Now s/p right iliac revascularization and 2 debridements. #Right lower extremity ulcer with calcaneal necrosis and ? osteomyelitis - s/p debridement 10/11 and 10/26 - wound vac in place - defer antibiotics, follow up intra-op cultures #PVD: Severe right iliac stent stenosis, focally occluded left prox EIA - s/p R femoral cut down and iliac angioplasty/stent 10/23 - started aspirin 81 daily, not on statin #AAA: 5.6cm - no plan for repair or stent/grafting #Acute metabolic encephalopathy: Not at baseline - not decisional today on my evaluation #Atrial fibrillation - holding eliquis until procedures complete #BPH: Continue flomax #Iron deficiency anemia #Right nasal bridge lesion - local wound care #Dementia #Goals of care - hoping that R heel wound will heal with improved blood flow; surgery still thinking BKA may be necessary; he has refused BKA this admission; may require meeting with JACOB Gunn in near future if not improving Code: DNR Dispo: Remain inpatient. Previously living at [facility]. Subjective: Having some right foot discomfort but overall pain controlled. Otherwise no new symptoms. Objective: Vital Signs Temp Pulse Resp BP Pulse Ox 36.9 C 67 18 123/63 H 90 L 10/27/18 08:00 10/27/18 08:00 10/27/18 08:00 10/27/18 09:36 10/27/18 08:00 Microbiology 10/26/18 13:02 Gram Stain - Final Foot - Tissue Laboratory Results 10/24/18 05:48 10/23/18 08:10 10/26/18 10/27/18 10/28/18 05:59 05:59 05:59 Intake Total 825 1200 Output Total 1375 2255 1000 Balance -550 -1055 -1000 PT 14.2 SEC (12.0-15.0) 10/20/18 05:00 INR 1.15 (0.83-1.16) 10/20/18 05:00 - Physical Exam Constitutional: no apparent distress, chronically ill appearing Eyes: PERRL Ears, Nose, Mouth, Throat: moist mucous membranes Cardiovascular: irregularly irregular, No edema Respiratory: no respiratory distress, no rales or rhonchi, clear to auscultation Gastrointestinal: normoactive bowel sounds, soft, non-tender abdomen, no palpable masses Genitourinary: no bladder fullness, no bladder tenderness, no renal bruits Skin: other (right foot with wound vac) Musculoskeletal: generalized weakness Neurologic: other (alert, not fully oriented) Psychiatric: encephalopathic ICD10 Worksheet Patient Problems: Problems Problem Status Onset DVT (deep venous thrombosis) Acute Acute kidney injury Acute Fever Acute Hypoxia Acute Severe sepsis Acute Ulcer of right lower leg Acute Peripheral vascular disease Acute chronic disease mgmt/transitional care Acute Nausea, vomiting, and diarrhea Acute Pancreatitis Acute Dehydration Acute Hypoxemia Acute Head injury Acute Cervical strain Acute Pulmonary embolus Acute Elevated troponin Acute Palliative care encounter Acute Pneumonia Acute Toe infection Acute Atrial flutter Acute Vomiting Acute Displaced fracture of right femoral neck Acute
--- NOTE | 2018-10-27 14:33 | ASMTCMCOM ---
CM Note CM Note Notes: Pts case discussed w/ DENY Jimenez regarding d/c POC. Pt will most likely require a wound vac at time of d/c. CM communicated info w/ Ria at [facility]. DC date has not been identified at this time. CM to follow. Plan: [facility] Date Signed: 10/27/2018 02:32 PM Electronically Signed By:LYDIA Loya
[2018-10-27] MEDS: ASPIRIN 81 MG CHEWABLE TAB PO SCH (19:23)
[2018-10-27] MEDS: BACLOFEN 10 MG TAB PO SCH (20:34)
[2018-10-28] MEDS: ACETAMINOPHEN 325 MG TAB PO PRN ×2 (00:21→20:23)
[2018-10-28] MEDS: DILTIAZEM 30 MG TAB PO SCH ×4 (05:04→20:24)
--- NOTE | 2018-10-28 09:34 | SOAPPROG ---
SOAP Progress Note Assessment/Plan: Assessment/Plan: 83 Y M c dementia, afib, AAA 5.6 cm, PAD c significant iliac stenosis, here with ischemic calcaneal ulcer S/p operative debridement S/p R femoral cutdown for R iliac artery stenting S/p R calcaneal wound debridement POD #2 Pt has good pedal pulses on doppler today. Plan for vac change today. S: No complaints. O: Afebrile, VSS Irregularly irregular No increased WOB Abdomen soft RLE: + pedal pulses. Wound vac to suction. LLE: No wounds, + pedal pulses. 10/28/18 09:33 Objective: Vital Signs Temp Pulse Resp BP Pulse Ox 36.4 C 56 L 17 121/64 H 96 10/28/18 04:01 10/28/18 05:04 10/28/18 04:01 10/28/18 05:04 10/28/18 04:01 Microbiology 10/26/18 13:02 Mycobacterial Smear (BURKE) - Final Foot - Tissue 10/26/18 13:02 Gram Stain - Final Foot - Tissue Laboratory Results 10/24/18 05:48 10/23/18 08:10 10/27/18 10/28/18 10/29/18 05:59 05:59 05:59 Intake Total 1200 500 Output Total 2255 2150 Balance -1055 -1650 PT 14.2 SEC (12.0-15.0) 10/20/18 05:00 INR 1.15 (0.83-1.16) 10/20/18 05:00 ICD10 Worksheet Patient Problems: Problems Problem Status Onset Peripheral vascular disease Acute Ulcer of right lower leg Acute Acute kidney injury Acute Atrial flutter Acute Cervical strain Acute DVT (deep venous thrombosis) Acute Dehydration Acute Displaced fracture of right femoral neck Acute Elevated troponin Acute Fever Acute Head injury Acute Hypoxemia Acute Hypoxia Acute Nausea, vomiting, and diarrhea Acute Palliative care encounter Acute Pancreatitis Acute Pneumonia Acute Pulmonary embolus Acute Severe sepsis Acute Toe infection Acute Vomiting Acute chronic disease mgmt/transitional care Acute
[2018-10-28] MEDS: SODIUM HYPOCHLORITE (DAKINS 1/4 STR) 473 ML BTL TP SCH (20:16)
[2018-10-28] MEDS: amLODIPine BESYLATE 5 MG TAB PO SCH (20:18)
[2018-10-28] MEDS: SENNOSIDES/DOCUSATE SODIUM TAB PO SCH ×2 (20:18→20:31)
[2018-10-28] MEDS: ASPIRIN 81 MG CHEWABLE TAB PO SCH (20:19)
[2018-10-28] MEDS: BACLOFEN 10 MG TAB PO SCH (20:23)
--- NOTE | 2018-10-28 20:49 | WOCRNPDOC ---
WOCRN Advanced Assessment Note - Skin Integrity Problem, Advanced Assess Right Heel Pressure Injury Dressing Type: Black Vac Foam, Wound Vac Dressing Description: Clean/Dry, Intact Exudate Amount: Minimal Exudate Characteristic(s): Serosanguinous Integumentary Issue Intervention: Dressing Changed Cassi Wound Tissue: Macerated Wound Bed Constitution: Granulation Tissue (70%), Bone, Mixed Loose & Adhered Slough/Eschar (30%) Wound Edges: Attached Site Odor: Slight, Pungent Skin Integrity Problem Comment: Flushed wound with ns and gauze. Covered the large area of calcaneous that is exposed with adaptic touch. Skin prep, mastisol and drape applied acssi wound. Two pieces of bridge black foam used to wound bed. Vac restarted at -125mm HG continuous suction with no leaks. Hermelinda Kee RN's in room and assisted with change. Limb sling used. Patient recieved 0.8 of dilaud IV for vac change, yet he continued to yell and swear profusely. Next vac change due friday. Wound care will follow. Right Lateral Proximal Ankle Dressing Type: Black Vac Foam, Wound Vac Dressing Description: Clean/Dry, Intact Exudate Amount: Scant Exudate Characteristic(s): Serosanguinous Integumentary Issue Intervention: Dressing Changed, Dressing Initialed & Dated Wound Bed Constitution: Granulation Tissue (100%) Wound Edges: Epithelizing, Attached Skin Integrity Problem Comment: Wound bed has filled in nicely. Cleaned with ns and gauze and skin prep applied cassi wound. Then wound gel to wound bed and covered with Allevyn life. Wound care will follow. Bonnie SHEPARD in room for All findings reported to Chayito Velásquez and Betty BARCLAY. Right Lateral Distal Ankle Dressing Type: Black Vac Foam Dressing Description: Clean/Dry, Intact Exudate Amount: None Integumentary Issue Intervention: Dressing Changed, Dressing Initialed & Dated Wound Bed Constitution: Granulation Tissue (100%) Wound Edges: Epithelizing Skin Integrity Problem Comment: Healing well. Wound gel to wound bed after cleaning with ns and gauze. Covered with Allevyn life.
--- NOTE | 2018-10-28 21:29 | HOSPPROG ---
Hospitalist Progress Note Assessment/Plan: 83-year-old M with dementia, PVD, chronic vascular ulcer admitted [facility] after his RLE calcaneal wound appeared worse. He has refused amputation. Now s/p right iliac revascularization and 2 debridements. #Right lower extremity ulcer with calcaneal necrosis and ? osteomyelitis - s/p debridement 10/11 and 10/26 - wound vac in place - defer antibiotics, follow up intra-op cultures #PVD: Severe right iliac stent stenosis, focally occluded left prox EIA - s/p R femoral cut down and iliac angioplasty/stent 10/23 - started aspirin 81 daily, not on statin #AAA: 5.6cm - no plan for repair or stent/grafting #Acute metabolic encephalopathy -unclear baseline -see below, needs cognitive/competency eval and possible guardian #Atrial fibrillation - holding eliquis, need to check with surgery re if ok to restart #BPH: holding flomax #Iron deficiency anemia -check in AM for stability #Right nasal bridge lesion - local wound care #Dementia -see above #Goals of care - hoping that R heel wound will heal with improved blood flow; surgery still thinking BKA may be necessary; he has refused BKA this admission; may require meeting with JACOB Gunn in near future if not improving. I spoke with Palliative/CM, asked to initiate guardianship eval. Code: DNR Dispo: Remain inpatient. Previously living at [facility]. Objective: Vital Signs Temp Pulse Resp BP Pulse Ox 97.6 F 56 L 17 140/72 H 96 10/28/18 04:01 10/28/18 05:04 10/28/18 04:01 10/28/18 20:24 10/28/18 04:01 Microbiology 10/26/18 13:02 Gram Stain - Final Foot - Tissue Laboratory Results 10/24/18 05:48 10/23/18 08:10 10/27/18 10/28/18 10/29/18 11:59 11:59 11:59 Intake Total 1200 500 Output Total 2505 1150 Balance -1305 -650 PT 14.2 SEC (12.0-15.0) 10/20/18 05:00 INR 1.15 (0.83-1.16) 10/20/18 05:00 ICD10 Worksheet Patient Problems: Problems Problem Status Onset Peripheral vascular disease Acute Ulcer of right lower leg Acute Acute kidney injury Acute Atrial flutter Acute Cervical strain Acute DVT (deep venous thrombosis) Acute Dehydration Acute Displaced fracture of right femoral neck Acute Elevated troponin Acute Fever Acute Head injury Acute Hypoxemia Acute Hypoxia Acute Nausea, vomiting, and diarrhea Acute Palliative care encounter Acute Pancreatitis Acute Pneumonia Acute Pulmonary embolus Acute Severe sepsis Acute Toe infection Acute Vomiting Acute chronic disease mgmt/transitional care Acute
[2018-10-29] MEDS: DILTIAZEM 30 MG TAB PO SCH ×4 (05:07→20:33)
[2018-10-29] MEDS: traMADol 50 MG TAB PO PRN (08:18)
[2018-10-29] MEDS: amLODIPine BESYLATE 5 MG TAB PO SCH (08:19)
[2018-10-29] MEDS: ACETAMINOPHEN 325 MG TAB PO PRN ×2 (08:31→20:32)
[2018-10-29] MEDS: ASPIRIN 81 MG CHEWABLE TAB PO SCH (08:31)
--- NOTE | 2018-10-29 09:14 | SOAPPROG ---
SOAP Progress Note Assessment/Plan: Assessment/Plan: 83 Y M c dementia, afib, AAA 5.6 cm, PAD c significant iliac stenosis, here with ischemic calcaneal ulcer S/p R femoral cutdown for R iliac artery stenting S/p R calcaneal wound debridement POD #3 Path shows +osteo. 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 Appreciate ID input for abx coverage. + palpable pulses. Plan for vac change tomorrow. S: No complaints. O: Afebrile, VSS Irregularly irregular No increased WOB Abdomen soft RLE: + pedal pulses. Foot warm. Wound vac to suction. Wound yesterday appeared mostly clean with granulation tissue. Some slough present. LLE: No wounds, + pedal pulses. 10/29/18 09:11 Objective: Vital Signs Temp Pulse Resp BP Pulse Ox 36.6 C 66 16 122/65 H 91 L 10/29/18 07:57 10/29/18 07:57 10/29/18 07:57 10/29/18 07:57 10/29/18 07:57 Microbiology 10/26/18 13:02 Gram Stain - Final Foot - Tissue 10/26/18 13:02 Mycobacterial Smear (BURKE) - Final Foot - Tissue Laboratory Results 10/29/18 07:53 10/29/18 07:53 10/28/18 10/29/18 10/30/18 05:59 05:59 05:59 Intake Total 500 Output Total 2150 250 Balance -1650 -250 PT 14.2 SEC (12.0-15.0) 10/20/18 05:00 INR 1.15 (0.83-1.16) 10/20/18 05:00 ICD10 Worksheet Patient Problems: Problems Problem Status Onset Peripheral vascular disease Acute Ulcer of right lower leg Acute Acute kidney injury Acute Atrial flutter Acute Cervical strain Acute DVT (deep venous thrombosis) Acute Dehydration Acute Displaced fracture of right femoral neck Acute Elevated troponin Acute Fever Acute Head injury Acute Hypoxemia Acute Hypoxia Acute Nausea, vomiting, and diarrhea Acute Palliative care encounter Acute Pancreatitis Acute Pneumonia Acute Pulmonary embolus Acute Severe sepsis Acute Toe infection Acute Vomiting Acute chronic disease mgmt/transitional care Acute
[2018-10-29] MEDS: SODIUM HYPOCHLORITE (DAKINS 1/4 STR) 473 ML BTL TP SCH (09:24)
[2018-10-29] MEDS: SENNOSIDES/DOCUSATE SODIUM TAB PO SCH ×2 (10:41→20:34)
--- NOTE | 2018-10-29 15:23 | PCMIDPN ---
Assessment/Plan: # Osteomyelitis right heel s/p revascularization and debridement. Unclear if residual infection remains after debridement as impossible to get "margins" when debride calcaneus. --discussed standard of care including IV antibiotics. Typically both organisms isolated at are susceptible to beta lactams. Standard therapy for Arcanobacterium is azithromycin and patient carries an allergy that was difficult for me to sort out --Patient does not want IV antibiotics but is agreeable to PO. Would Rx Augmentin 875mg PO BID x 6 weeks --check CRP # Diet: I advanced patient to a regular diet. Not clear true benefits of forcing patient to eat pureed food other than causing him greater dissatisfaction # History of Group C/G Strep bacteremia Subjective: 83 yo M with a PMHx of A Fib, BPH, HARSHIL, LLE osteomyelitis who presents to [facility] for RLE wound. He was seen wound care clinic 10/07/18 where the wound appeared worse and was sent to ED, patient was found to have ischemic calcaneal ulcer s/ p operative debridement 10/11, then s/p R femoral arterial cutdown with placement of iliac stent 10/23, and finally debridement with saucerization of bone 10/26 with positive pathology for osteomyelitis and cultures showing Corynebacterium striatum and Arcanobacterium. Patient has only received perioperative antibiotics. Wound VAC in place on right heel. Patient has no complaints and feels that his foot is much better. He wants to eat hamburger and wants PIV removed. Objective: Vital Signs Temp Pulse Resp BP Pulse Ox 36.6 C 68 16 124/64 H 91 L 10/29/18 07:57 10/29/18 14:55 10/29/18 07:57 10/29/18 14:55 10/29/18 07:57 Microbiology 10/26/18 13:02 Gram Stain - Final Foot - Tissue 10/26/18 13:02 Mycobacterial Smear (BURKE) - Final Foot - Tissue Laboratory Results 10/29/18 07:53 10/29/18 07:53 10/28/18 10/29/18 10/30/18 05:59 05:59 05:59 Intake Total 500 350 Output Total 2150 250 Balance -1650 -250 350 ESR 96 MM/HR (0-20) H 10/07/18 17:00 C-Reactive Protein REJ 10/07/18 17:37 - Physical Exam General Appearance: alert, no apparent distress, other (appears much thinner than my prior exam) EENT: pale conjunctiva, No scleral icterus Respiratory: lungs clear, No accessory muscle use Neck: supple Cardiac/Chest: regular rate, rhythm Extremities: other (RLE heal wound vac in place, no surrounding erythema), No erythema Peripheral Pulses: 2+: dorsalis-pedis (R) Abdomen: non-tender, soft Skin: No rash Neuro/Psych: alert, normal mood/affect - Line/s PIV Lines: other (L anticubital), No drainage, No erythema - Time Spent With Patient Time Spent with Patient: greater than 35 minutes Time Spent with Patient: Greater than 35 minutes spent on this patients care, greater than 50% of time spent counseling, educating, and coordinating care regarding the above mentioned plan. ICD10 Worksheet Patient Problems: Problems Problem Status Onset Peripheral vascular disease Acute Ulcer of right lower leg Acute Acute kidney injury Acute Atrial flutter Acute Cervical strain Acute DVT (deep venous thrombosis) Acute Dehydration Acute Displaced fracture of right femoral neck Acute Elevated troponin Acute Fever Acute Head injury Acute Hypoxemia Acute Hypoxia Acute Nausea, vomiting, and diarrhea Acute Palliative care encounter Acute Pancreatitis Acute Pneumonia Acute Pulmonary embolus Acute Severe sepsis Acute Toe infection Acute Vomiting Acute chronic disease mgmt/transitional care Acute
--- NOTE | 2018-10-29 15:34 | ASMTCMCOM ---
CM Note CM Note Notes: CM spoke to CLAUDIA spoke to Quirino with palliative services. The hope is to enroll pt into [facility] services. Velia, pts friend/mdpoa will most likely sign onto hospice services. CLAUDIA spoke to Ria at [facility]. Ria is ready to accept pt tomorrow. Updates sent to [facility]. CM department will not be obtaining guardianship for pt. In the off chance that Velia is no longer interested in being MDPOA, [facility] will need to find proxy and/or obtain guardianship. CM to follow. Plan: [facility] Date Signed: 10/29/2018 03:33 PM Electronically Signed By:LYDIA Loya
[2018-10-29] MEDS: AMOXICILLIN/CLAVULANATE POT 875/125 MG TAB PO SCH (20:33)
[2018-10-29] MEDS: BACLOFEN 10 MG TAB PO SCH (20:34)
--- NOTE | 2018-10-29 20:48 | HOSPPROG ---
Hospitalist Progress Note Assessment/Plan: 83-year-old M with dementia, PVD, chronic vascular ulcer admitted from [facility] after his RLE calcaneal wound appeared worse. He has refused amputation. Now s/p right iliac revascularization and 2 debridements. #Right lower extremity ulcer with calcaneal necrosis and ? osteomyelitis - s/p debridement 10/11 and 10/26 - wound vac in place - defer antibiotics, follow up intra-op cultures #PVD: Severe right iliac stent stenosis, focally occluded left prox EIA - s/p R femoral cut down and iliac angioplasty/stent 10/23 - started aspirin 81 daily, not on statin #AAA: 5.6cm - no plan for repair or stent/grafting #Acute metabolic encephalopathy -unclear baseline -see below, needs cognitive/competency eval and possible guardian #Atrial fibrillation - holding eliquis, need to check with surgery re if ok to restart #BPH: holding flomax #Iron deficiency anemia -check in AM for stability #Right nasal bridge lesion - local wound care #Dementia -see above #Goals of care - hoping that R heel wound will heal with improved blood flow; surgery still thinking BKA may be necessary; he has refused BKA this admission; may require meeting with JACOB Gunn in near future if not improving. I spoke with Palliative/CM, asked to initiate guardianship eval. Code: DNR Dispo: Remain inpatient. Previously living at [facility] [place]. Objective: Vital Signs Temp Pulse Resp BP Pulse Ox 98.2 F 70 20 110/68 96 10/29/18 16:00 10/29/18 20:33 10/29/18 16:00 10/29/18 20:33 10/29/18 16:00 Microbiology 10/26/18 13:02 Gram Stain - Final Foot - Tissue 10/26/18 13:02 Mycobacterial Smear (BURKE) - Final Foot - Tissue Laboratory Results 10/29/18 07:53 10/29/18 07:53 10/28/18 10/29/18 10/30/18 11:59 11:59 11:59 Intake Total 500 350 Output Total 1150 250 450 Balance -650 100 -450 PT 14.2 SEC (12.0-15.0) 10/20/18 05:00 INR 1.15 (0.83-1.16) 10/20/18 05:00 ICD10 Worksheet Patient Problems: Problems Problem Status Onset Peripheral vascular disease Acute Ulcer of right lower leg Acute Acute kidney injury Acute Atrial flutter Acute Cervical strain Acute DVT (deep venous thrombosis) Acute Dehydration Acute Displaced fracture of right femoral neck Acute Elevated troponin Acute Fever Acute Head injury Acute Hypoxemia Acute Hypoxia Acute Nausea, vomiting, and diarrhea Acute Palliative care encounter Acute Pancreatitis Acute Pneumonia Acute Pulmonary embolus Acute Severe sepsis Acute Toe infection Acute Vomiting Acute chronic disease mgmt/transitional care Acute
[2018-10-30] MEDS: DILTIAZEM 30 MG TAB PO SCH ×3 (05:11→16:35)
[2018-10-30] MEDS: ASPIRIN 81 MG CHEWABLE TAB PO SCH (09:26)
[2018-10-30] MEDS: AMOXICILLIN/CLAVULANATE POT 875/125 MG TAB PO SCH (09:26)
[2018-10-30] MEDS: amLODIPine BESYLATE 5 MG TAB PO SCH (09:26)
[2018-10-30] MEDS: SENNOSIDES/DOCUSATE SODIUM TAB PO SCH (09:26)
--- NOTE | 2018-10-30 10:43 | PCMIDPN ---
Assessment/Plan: Assessment: right heel necrosis and infection. 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 We are treating the isolates with oral Augmentin twice daily. This is due to the patient's refusal of IV antibiotics. Clinically he seems to be doing well today. He is in good spirits and with good energy and appetite. Will continue the oral Augmentin regimen and follow the surgical opinion as to the wound. Plan: 1. Continue oral Augmentin 875/1-5 p.o. Twice daily. 2. Follow surgical evaluation of wound. 10/30/18 10:40 Subjective: Patient is resting comfortably in his hospital bed. He voices no new complaints. He desires a bowl of ice cream. No fevers. No rash. Objective: Augmentin p.o. # 1 Vital Signs Temp Pulse Resp BP Pulse Ox 36.6 C 66 16 128/62 H 96 10/30/18 07:29 10/30/18 07:29 10/30/18 07:29 10/30/18 09:26 10/30/18 07:29 Microbiology 10/26/18 13:02 Gram Stain - Final Foot - Tissue 10/26/18 13:02 Mycobacterial Smear (BURKE) - Final Foot - Tissue Laboratory Results 10/29/18 07:53 10/29/18 07:53 10/29/18 10/30/18 10/31/18 05:59 05:59 05:59 Intake Total 750 Output Total 250 800 Balance -250 -50 ESR 96 MM/HR (0-20) H 10/07/18 17:00 C-Reactive Protein 27.8 mg/L (<10.0) H 10/29/18 07:53 - Physical Exam General Appearance: WD/WN, alert, no apparent distress, thin, non-toxic Respiratory: lungs clear, normal breath sounds, No respiratory distress, No accessory muscle use Cardiac/Chest: regular rate, rhythm, No tachycardia Extremities: non-tender, No normal inspection, No inflammation, No erythema Skin: normal color, warm/dry, No rash Neuro/Psych: alert, normal mood/affect, oriented x 3 ICD10 Worksheet Patient Problems: Problems Problem Status Onset Peripheral vascular disease Acute Ulcer of right lower leg Acute Acute kidney injury Acute Atrial flutter Acute Cervical strain Acute DVT (deep venous thrombosis) Acute Dehydration Acute Displaced fracture of right femoral neck Acute Elevated troponin Acute Fever Acute Head injury Acute Hypoxemia Acute Hypoxia Acute Nausea, vomiting, and diarrhea Acute Palliative care encounter Acute Pancreatitis Acute Pneumonia Acute Pulmonary embolus Acute Severe sepsis Acute Toe infection Acute Vomiting Acute chronic disease mgmt/transitional care Acute
--- NOTE | 2018-10-30 11:43 | PDIAF ---
- Diagnosis Code Status: Do Not Resuscitate - Medication Management Oxyacetylene Welder Antibiotics: will determine length of treatment per ID at FU appt Discharge Medications: electronically signed and located in the Home Medication List. PICC Care - Routine: N/A - Orders Isolation Type: None Oxygen: as needed Diet Recommendation: no restrictions on diet Diet Texture: Regular Texture Diet Weigh Patient: weekly Wound Care Instructions: per surgery- Dr Dietrich, has a wound vac Activity/Weight Bearing Restrictions: per PT/OT eval at SNF Additional Instructions: per pt/ot recommendations at SNF Wound care/vac instructions per surgery - Follow Up Care Current Providers and Referrals: Refugio Dietrich MD [Medical Doctor] - follow up in 1 week Alondra Andrade MD [Medical Doctor] - follow up in 1 week CELE MORENO [Primary Care Provider] - 3 days of d/c SNF/Rehab
--- NOTE | 2018-10-30 13:50 | WOCRNPDOC ---
WOCRN Advanced Assessment Note - Skin Integrity Problem, Advanced Assess Right Heel Pressure Injury Dressing Type: Black Vac Foam (bridge dressing) Dressing Description: Clean/Dry, Intact Closure Description: Not Approximated Exudate Amount: Minimal Exudate Color: Reddish/Yellow Exudate Characteristic(s): Serosanguinous Integumentary Issue Intervention: Dressing Changed Leonor Wound Tissue: Intact, Painful/Tender Wound Bed Color: Red Wound Bed Constitution: Granulation Tissue (70%), Bone (30%) Wound Edges: Attached, Well Defined Site Odor: Slight, Foul Site Measurement - Head-to-Toe Length X Width X Depth (cm): 8x6x0.4 Pressure Injury Stage: Stage 4 Pressure Injury Present on Admit: Yes Skin Integrity Problem Comment: Wound bed cleaned with NS and gauze. Mastisol applied to leonor wound tissue and draped in the typical fashion. Adaptic touch applied as a contact layer over wound bed. Two pieces black foam applied to wound bed and covered with drape. Hole cut in drape to attach bridge. Good seal achieved at -125mmHg. Bridge dressing taped to patient's upper right leg. Patient tolerated procedure OK, with some complaining and cussing at this RN and DREA Matos (also in room). We distracted him with conversation about his friend Velia with some success. It is anticipated that patient will DC today but will place him for follow up on Friday for vac change.
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
[2018-10-30 15:11] VITALS: BP 115/61
== END 2018-10-30 16:55 | DRG 579 ==
LOC: EDUNIT# → F1N 22:03 → F2N 10-23 17:39 → F3E 10-24 15:37
PROVIDERS: ADMIT Internal Medicine; ATTEND Internal Medicine
PROC: 0JDQ0ZZ Extraction of Right Foot Subcutaneous Tissue and Fascia, Open Approach (ICD-10-PCS; 2018-10-11)
PROC: 047H3DZ Dilation of Right External Iliac Artery with Intraluminal Device, Percutaneous Approach (ICD-10-PCS; principal; 2018-10-23 13:00)
PROC: 0QBL0ZZ Excision of Right Tarsal, Open Approach (ICD-10-PCS; 2018-10-26)
DX: L89.614 Pressure ulcer of right heel, stage 4 (principal); G92 Toxic encephalopathy; M86.171 Other acute osteomyelitis, right ankle and foot; T40.2X5A Adverse effect of other opioids, initial encounter; L89.514 Pressure ulcer of right ankle, stage 4; L89.610 Pressure ulcer of right heel, unstageable; L89.222 Pressure ulcer of left hip, stage 2; E11.51 Type 2 diabetes mellitus with diabetic peripheral angiopathy without gangrene; E86.9 Volume depletion, unspecified; I71.4 Abdominal aortic aneurysm, without rupture; I10 Essential (primary) hypertension; I48.91 Unspecified atrial fibrillation; N40.0 Benign prostatic hyperplasia without lower urinary tract symptoms; D50.9 Iron deficiency anemia, unspecified; F03.90 Unspecified dementia, unspecified severity, without behavioral disturbance, psychotic disturbance, mood disturbance, and anxiety; Z66 Do not resuscitate; Z99.3 Dependence on wheelchair; Z79.01 Long term (current) use of anticoagulants; Z89.422 Acquired absence of other left toe(s)
CPT/HCPCS: 85520-90; 92526-GN; 92610-GN; 96374; A9585; C1725; C1769; C1894; J0171; J0330; J0690; J1170; J1644; J1650; J2060; J2370; J2405; J2704; J2720; J3010; Q9967